=== PATIENT | male | born 1955 | race Caucasian/White ===

== ENCOUNTER 2018-05-10 14:13 | Emergency (ER) | payer OTHER ==
[~2018-05-10] VITALS: Ht 175.3 cm; Wt 78.0 kg
--- OUTSIDE RECORDS SUMMARY | ~2018-05-10 | XMS | Clinical Summary ---
Demographics + + + | Address | [address] | | | [place] [address] | + + + | Home Phone | | + + + | Preferred Language | Unknown | + + + | Marital Status | Unknown | + + + | Holiness Affiliation | Unknown | + + + | Race | Unknown | + + + | Ethnic Group | Unknown | + + + Author + + + | Author | [facility] | | | and [facility] | + + + | Organization | [facility] | | | and [place] | + + + | Address | Unknown | + + + | Phone | Unavailable | + + + Care Team Providers + +------+ + | Care Level Vial Inspector Name | Role | Phone | + +------+ + PP | Unavailable | + +------+ + Allergies Not on File Current Medications Not on file Active Problems Not on file Social History + +-------+ +--------+------+ | Tobacco [...] on file | | + + + Plan of Treatment + + + + + | Health Maintenance | Due Date | Last Done | Comments | + + + + + | Vaccine: | | | | | Dtap/Tdap/Td (1 - | 3 | | | | Tdap) | | | | + + + + + | Vaccine: Zoster (1 | | | | | of 2) | 4 | | | + + + + + | Vaccine: Influenza | | | | | (#1) | 8 | | | + + + + + Results Not on filefrom Last 3 Months"
--- OUTSIDE RECORDS SUMMARY | ~2018-05-10 | XMS | Clinical Summary ---
Demographics + + + | Address | [address] | | | [place] [address] | + + + | Home Phone | | + + + | Preferred Language | Unknown | + + + | Marital Status | Unknown | + + + | Hoahaoism Affiliation | Unknown | + + + | Race | Unknown | + + + | Ethnic Group | Unknown | + + + Author + + + | Author | [facility] | | | and [facility] | + + + | Organization | [facility] | | | and [place] | + + + | Address | Unknown | + + + | Phone | Unavailable | + + + Care Team Providers + +------+ + | Care Pullman Clerk Name | Role | Phone | [...]
--- OUTSIDE RECORDS SUMMARY | ~2018-05-10 | XMS | Clinical Summary ---
Demographics + + + | Address | [address] | | | [place] [address] | + + + | Home Phone [...] [place] | | | | | [address] | | + + + + + Care Team Providers + +------+ + | Care Police District Switchboard Operator Name | Role | Phone | + +------+ + | Washington Mason MD | PP | | + +------+ + Source Comments KRISTI is fully live on both [facility] and [facility] InPatient.[facility] Allergies No Known Allergies Current [...] | BLUE | xxxxxxxxx | PPO | [phone]- | [address] [address] [place] | | | CROSS | | | [address] | [place] [address] | | | [place] | | | | | | | L | | | | | + +--------+ +------+ + + | [facility] | UNITED | xxxxxxxxx | PPO | [...] | Self | [birth year] | Home: | [address] | | | al/Fam | | 1955 | [phone] | [place] [address] | | | fr[place]isca | | | [phone] | | + +--------+ +--------+ + +"
--- OUTSIDE RECORDS SUMMARY | ~2018-05-10 | XMS | Clinical Summary ---
Demographics + + + | Address | [address] | | | [place] [address] | + + + | Home Phone [...] [place] | | | | | [address] | | + + + + + Care Team Providers + +------+ + | Care Physical Therapy Aides Teacher Name | Role | Phone | + +------+ + | Washington Mason MD | PP | | + +------+ + Source Comments KRISTI is fully live on both [facility] Ambulatory and [facility] InPatient.[facility] Allergies No Known Allergies Current [...] | PPO | [phone]- | [address] [address] [place] | | | CROSS | | | [address] | [place] [address] | | | [place] | | | | | | | L | | | | | + +--------+ +------+ + + | [facility] | UNITED | xxxxxxxxx | PPO | [...] 1955 | [phone] | [place] [address] | | | fr[place]a | | | [phone] | | + +--------+ +--------+ + +"
[2018-05-10] MEDS ORDERED: LISINOPRIL-HCT1 EAC2 PO (14:38)
[2018-05-10] MEDS ORDERED: ULTRAM50 MG PO (14:40)
[2018-05-10] MEDS ORDERED: PRILOSEC OTC20 MG PO (14:40)
[2018-05-10] MEDS ORDERED: ASPIR-LOW81 MG PO (14:41)
[2018-05-10] MEDS ORDERED: LIPITOR20 MG PO (14:41)
[2018-05-10] MEDS ORDERED: SILVADENE20 GM TOP (18:47)
[2018-05-10] MEDS ORDERED: ZOFRAN ODT4 MG PO (18:47)
[2018-05-13] MEDS ORDERED: KEPPRA500 MG PO (17:45)
== END 2018-05-10 19:01 | disposition home or self-care (01) ==
LOC: ED 14:13
DX: C44.41 Basal cell carcinoma of skin of scalp and neck (principal); I10 Essential (primary) hypertension; E78.5 Hyperlipidemia, unspecified; F17.200 Nicotine dependence, unspecified, uncomplicated; Z79.899 Other long term (current) drug therapy; Z79.82 Long term (current) use of aspirin
CPT/HCPCS: 70450; 70470; 70491; 71260; 80053; 85025; 85610; 96361; 96374; 96375; 99283; J2270; J2405; J7030; Q9967

== ENCOUNTER 2018-10-05 10:57 | Emergency (ER) | payer OTHER ==
[~2018-10-05] VITALS: Ht 175.3 cm; Wt 78.9 kg
--- OUTSIDE RECORDS SUMMARY | ~2018-10-05 | XMS | Encounter Summary ---
Demographics + + + | Address | [address] | | | [place] [address] | + + + | Home Phone | | + + + | Preferred Language | Unknown | + + + | Marital Status | | + + + | Voodoo Affiliation | Unknown | + + + | Race | Unknown | + + + | Ethnic Group | Unknown | + + + Author + + + | Author | [facility] | | | and [place] | + + + | Organization | [facility] | | | and [place] | + + + | Address | Unknown | + + + | Phone | Unavailable | + + + Support + + + + + | Name | Relationship | Address | Phone | + + + + + | Wilber,Delanee | ECON | [address] | | | | | [place], [place] | | | | | [address] | | + + + + + | Isabella Merino | ECON | [address] | | | "Tk[place]" | | [place], [place] | | | | | [address] | | + + + + + Care Team Providers + +------+ + | Care Office Helper Name | Role | Phone | + +------+ + | Alen Bolanos MD | PCP | | + +------+ + Reason for Visit +--------+ + | Reason | Comments | +--------+ + | Other | | +--------+ + Encounter Details +--------+ + + + + | Date | Type | Department | Care Team | Description | +--------+ + + + + | 09/29/ | Telephone | [facility] | Ashu Singh DO | Other | | 2019 | | MED CTR RAD[facility]ATION | [address] [facility] | | | | | ONCOLOGY CLINIC [address] | [place] | | | | | [address] | [address] | | | | | [place] [address] | | | | | | [phone] | | | +--------+ + + + + Social History + +-------+ +--------+ + | Tobacco Use | Types | Packs/Day | Years | Date | | | | | Used | | + +-------+ +--------+ + | Current Every Day | | 1 | | Started: 08/01/1997 | | Smoker [...] + +---------+ + | Alcohol Use | Drinks/We | oz/Week | Comments | | | ek | | | + + +---------+ + | No | | | | + + +---------+ + + + + | Sex Assigned at | Date Recorded | | | | + + + | Not on file | | + + + as of this encounter Plan of Treatment +--------+ + + + + | Date | Type | Specialty | Care Team | Description | +--------+ + + + + | 01/08/ | Appointment | Radiation Oncology | Ashu Singh DO | | | 2019 | | | [address] | | | | | | [place] | | | | | | [address] | | | | | | | | +--------+ + + + + as of this encounter Visit Diagnoses Not on filein this encounter
--- OUTSIDE RECORDS SUMMARY | ~2018-10-05 | XMS | Encounter Summary ---
Demographics + + + | Address | [address] | | | [place] [address] | + + + | Home Phone | | + + + | Preferred Language | Unknown | + + + | Marital Status | | + + + | Confucianism Affiliation | Unknown | + + + | Race | Unknown | + + + | Ethnic Group | Unknown | + + + Author + + + | Author | [facility] | | | and [place] | + + + | Organization | [facility] | | | and [place] | + + + | Address | Unknown | + + + | Phone | Unavailable | + + + Support + + + + + | Name | Relationship | Address | Phone | + + + + + | Wilber,Delanee | ECON | [address] | | | | | [place], [place] | | | | | [address] | | + + + + + | Isabella Merino | ECON | [address] | | | "T[place]" | | [place], [place] | | | | | [address] | | + + + + + Care Team Providers + +------+ + | Care Music Artist Name | Role | Phone | + +------+ + | Alen Bolanos MD | PCP | | + +------+ + Reason for Visit + + + | Reason | Comments | + + + | Medication Refill | | + + + Encounter Details +--------+--------+ + + + | Date | Type | Department | Care Team | Description | +--------+--------+ + + + | 08/14/ | Refill | [facility] | Ashu Singh DO | Medication Refill | | 2019 | | MED CTR MEDICAL | [address] [facility] | | | | | ONCOLOGY CLINIC [address] | [place] | | | | | [address] | [address] | | | | | [place] [address] | | | | | | [phone] | | | +--------+--------+ + + + Social History + +-------+ [...] 2019 | | | [address] | | | | | | [place] | | | | | | [address] | | | | | | | | +--------+ + + + + as of this encounter Visit Diagnoses + + | Diagnosis | + + | Recurrent basal cell carcinoma - Primary | + + | Basal cell carcinoma of skin, site unspecified | + +
--- OUTSIDE RECORDS SUMMARY | ~2018-10-05 | XMS | Clinical Summary ---
Demographics + + + | Address | [address] | | | [place] [address] | + + + | Home Phone [...] [place] | | | | | [address] | | + + + + + Care Team Providers + +------+ + | Care Value Engineer Name | Role | Phone | + +------+ + | Alen Bolanos MD | PP | | + +------+ + Source Comments KRISTI is fully live on both [facility] Ambulatory and [facility] InPatient.[facility] Allergies No Known Allergies Current Medications + [...] | PPO | +1- | [address] [address] [place] | | | CROSS | | | [address] | [place] [address] | | | [place] | | | | | | | L | | | | | + +--------+ +------+ + + | [facility] | UNITED | xxxxxxxxx | PPO | [...] | [place] | | | [address] | [address] | + +--------+ +--------+ + +"
--- OUTSIDE RECORDS SUMMARY | ~2018-10-05 | XMS | Encounter Summary ---
Demographics + + + | Address | [address] | | | [place] [address] | + + + | Home Phone | | + + + | Preferred Language | Unknown | + + + | Marital Status | | + + + | Adventist Affiliation | Unknown | + + + | Race | Unknown | + + + | Ethnic Group | Unknown | + + + Author + + + | Author | [facility] | | | and [place] | + + + | Organization | [facility] | | | and [...] [place], [place] | | | | | [address] | | + + + + + | Isabella Merino | ECON | [address] | | | "T[place]" | | [place], [place] | | | | | [address] | | + + + + + Care Team Providers + +------+ + | Care Chairman & Chief Executive Officer Name | Role | Phone | + +------+ + | Alen Bolanos MD | PCP | | + +------+ + Encounter Details +--------+ + + + + | Date | Type | Department | Care Team | Description | +--------+ + + + + | 08/09/ | Hospital | [facility] | Ashu Singh DO | | | 2019 | Encounter | MED CTR RADIATION | [address] | | | | | ONCOLOGY [address] | [place], [place] | | | | | [place], | [address] | | | | | [place] [address] | | | | | | [phone] | | | +--------+ + + + [...] + + + as of this encounter Medications at Time of Discharge + + +---------+---------+ + + | Medication | Sig. | Disp. | Refills | Start | End Date | | | | | | Date | | + + +---------+---------+ + + | atorvaSTATin | Take 20 mg by mouth | | | | | | (LIPITOR) 20 mg | nightly. | | | | | | tablet | | | | | | + + +---------+---------+ + + | | Take 1 tablet by | | | | | | lisinopril-hydrochlo | mouth Daily. | | | | | | rothiazide | | | | | | | (PRINZIDE,ZESTORETIC | | | | | | | ) 10-12.5 MG per | | | | | | | tablet | | | | | | + + +---------+---------+ + + | omeprazole | Take 20 mg by mouth | | | | | | (PRILOSEC) 20 mg | every morning | | | | | | capsule | (before breakfast). | | | | | + + +---------+---------+ + + | aspirin 81 mg | Take 81 mg by mouth | | | | | | chewable tablet | Daily. | | | | 9 | + + +---------+---------+ + + | fish oil 1,000 mg | Take 1,000 mg by | | | | | | capsule | mouth Daily. | | | | 9 | + + +---------+---------+ + + | gabapentin | Take 1 capsule by | 90 | 0 | 08/01/19 | | | (NEURONTIN) 300 mg | mouth 3 times daily. | capsule | | 19 | 9 | | capsule | | | | | | + + +---------+---------+ + + | | | | 0 | 07/19/19 | | | HYDROcodone-acetamin | | | | 19 | 9 | | ophen (NORCO) 5-325 | | | | | | | mg per tablet | | | | | | + + +---------+---------+ + + | levETIRAcetam | take 1 tablet by | | 0 | 05/13/20 | | | (KEPPRA) 500 mg | mouth twice a day | | | 18 | 9 | | tablet | | | | | | + + +---------+---------+ + + | ondansetron | DIS ONE T PO TID PRN | | 0 | 05/11/20 | | | (MARIA ISABEL ODT) 4 mg | NAUSEA | | | 18 | 9 | | disintegrating | | | | | | | tablet | | | | | | + + +---------+---------+ + + | SSD 1 % cream | APPLY TO SKIN BID | | 3 | 07/20/19 | | | | PRN FOR ITCHING | | | 19 | 9 | + + +---------+---------+ + + as of this encounter Plan [...] [place] | | | | | | [address] | | | | | | | | +--------+ + + + + as of this encounter Visit Diagnoses Not on filein this encounter
--- OUTSIDE RECORDS SUMMARY | ~2018-10-05 | XMS | Encounter Summary ---
Demographics + + + | Address | [address] | | | [place] [address] | + + + | Home Phone | | + + + | Preferred Language | Unknown | + + + | Marital Status | | + + + | Spiritism Affiliation | Unknown | + + + | Race | Unknown | + + + | Ethnic Group | Unknown | + + + Author + + + | Author | [facility] | | | and [place] | + + + | Organization | [facility] | | | and [place] [...] [place], [place] | | | | | [address] | | + + + + + | Isabella Merino | ECON | [address] | | | "T[place]" | | [place], [place] | | | | | [address] | | + + + + + Care Team Providers + +------+ + | Care Family And Marriage Counsellor Name | Role | Phone | + +------+ + | Alen Bolanos MD | PCP | | + +------+ + Reason for Visit + + + | Reason | Comments | + + + | IDT Note | | + + + Encounter Details +--------+ + + + + | Date | Type | Department | Care Team | Description | +--------+ + + + + | 08/08/ | Telephone | [facility] | Ashu Singh DO | IDT Note | | 2019 | | MED CTR RADIATION | [address] [facility] | | | | | ONCOLOGY CLINIC [address] | [place] | | | | | [place] | [address] | | | | | [facility] [place] [address] | | | | | | [phone] | | | +--------+ + + + [...] | Ashu Singh DO | | | 2018 | | | [address] | | | | | | [place] | | | | | | [id number] | | | | | | | | +--------+ + + + + as of this encounter Visit Diagnoses Not on filein this encounter
--- OUTSIDE RECORDS SUMMARY | ~2018-10-05 | XMS | Encounter Summary ---
Demographics + + + | Address | [address] | | | [place] [address] | + + + | Home Phone | | + + + | Preferred Language | Unknown | + + + | Marital Status | | + + + | Sabianism Affiliation | Unknown | + + + | Race | Unknown | + + + | Ethnic Group | Unknown | + + + Author + + + | Author | [facility] | | | and [place] | + + + | Organization | [facility] | | | and [place] [...] [place], [place] | | | | | [address] | | + + + + + | Isabella Merino | ECON | [address] | | | "[place]" | | [place], [place] | | | | | [address] | | + + + + + Care Team Providers + +------+ + | Care Process Development Engineer Name | Role | Phone | + +------+ + | Alen Bolanos MD | PCP | | + +------+ + Reason for Referral Evaluate & Treat (Routine) +--------+ + + + + + | Status | Reason | Specialty | Diagnoses / | Referred By | Referred To | | | | | Procedures | Contact | Contact | +--------+ + + + + + | Closed | Specialty | Dermatology | Diagnoses | Lord, | Eddi, | | | Services | | Recurrent | Ashu Alvarenga DO | Dominique | | | Required | | basal cell | [address] | MD Maria Luisa | | | | | carcinoma | [address] | [address] | | | | | Basal cell | [place], | [place] | | | | | carcinoma | [place] [address] | [place] | | | | | (BCC) of | Phone: | [address] | | | | | skin of neck | [phone] | Phone: | | | | | | Fax: | [phone] | | | | | | [phone] | Fax: | | | | | | | [phone] | +--------+ + + + + + Encounter Details +--------+ + + + + | Date | Type | Department | Care Team | Description | +--------+ + + + + | 10/02/ | Hospital | [facility] | Ashu Singh DO | Recurrent basal cell | | 2019 | Encounter | MED CTR RADIATION | [address] | carcinoma (Primary | | | | ONCOLOGY CLINIC [address] | [place], [place] | Dx); Basal cell | | | | [place] | [address] | carcinoma (BCC) of | | | | [place] [address] | | skin of neck | | | | [phone] | | | +--------+ + + + [...] + +---------+ + + | Medication | Sig. | Disp. | Refills | Start | End Date | | | | | | Date | | + + + +---------+ + + | atorvaSTATin | Take 20 mg by mouth | | | | | | (LIPITOR) 20 mg | nightly. | | | | | | tablet | | | | | | + + + +---------+ + + | Docusate Calcium | Take by mouth as | | | | | | (STOOL SOFTENER PO) | needed. | | | | | + + + +---------+ + + | gabapentin | Take 3 capsules by | 270 | 0 | 09/08/19 | | | (NEURONTIN) 300 mg | mouth 3 times daily. | capsule | | 19 | | | capsuleIndications: | | | | | | | Recurrent basal cell | | | | | | | carcinoma | | | | | | + + + +---------+ + + | | Take 1-2 tablets by | 120 | 0 | 09/22/19 | | | HYDROcodone-acetamin | mouth every 6 hours | tablet | | 19 | | | ophen (NORCO) 10-325 | as needed for Pain. | | | | | | mg per tablet | | | | | | + + + +---------+ + + | | Take 1 tablet [...] + + + +---------+ + + | naloxone (NARCAN) | 1 spray by Nasal | 2 each | 0 | // | | | 4 mg/nasal spray | route as needed for | | | 19 | | | | Decreased | | | | | | | Responsiveness. | | | | | + + + +---------+ + + | omeprazole | Take 20 mg by mouth | | | | | | (PRILOSEC) 20 mg | every morning | | | | | | capsule | (before breakfast). | | | | | + + + +---------+ + + as of this encounter Progress Notes Danielle Robb RN - 10/02/2018 1632 PDTPatient completes radiation today. Patient is brayden eduled for a three month follow up with Dr. Singh. in this encounter Plan of Treatment +--------+ + + + + | Date | Type | Specialty | Care Team | Description | +--------+ + + + + | 01/08/ | Appointment | Radiation Oncology | Ashu Singh DO | | | 2018 | | | [address] | | | | | | [place] | | | | | | [address] | | | | | | | | +--------+ + + + + + +--------+ + + | Name | Priori | Associated Diagnoses | Order Schedule | | | ty | | | + +--------+ + + | Dermatology, External - AMB | Routin | Recurrent basal | Ordered: 10/02/2018 | | Referral | e | cell carcinoma | | | | | Basal cell carcinoma | | | | | (BCC) of skin of | | | | | neck | | + +--------+ + + as of this encounter Visit Diagnoses + + | Diagnosis | + + | Recurrent basal cell carcinoma - Primary | + + | Basal cell carcinoma of skin, site unspecified | + + | Basal cell carcinoma (BCC) of skin of neck | + +
--- OUTSIDE RECORDS SUMMARY | ~2018-10-05 | XMS | Encounter Summary ---
Demographics + + + | Address | [address] | | | [place] [address] | + + + | Home Phone | | + + + | Preferred Language | Unknown | + + + | Marital Status | | + + + | Methodist Affiliation | Unknown | + + + | Race | Unknown | + + + | Ethnic Group | Unknown | + + + Author + + + | Author | [facility] | | | and [place] | + + + | Organization | [facility] | | | and [place] [...] [place], [place] | | | | | [address] | | + + + + + | Isabella Merino | ECON | [address] | | | "[place]" | | [place], [place] | | | | | [address] | | + + + + + Care Team Providers + +------+ + | Care Engineering Patternmaker Name | Role | Phone | + [...] | | | | carcinoma | [place] [address] | [place], [place] | | | | | (BCC) of | Phone: | [address] | | | | | skin of neck | [phone] | Phone: | | | | | | Fax: | [phone] | | | | | | [phone] | Fax: | | | | | | | [phone] | +--------+ + + + + + Encounter Details +--------+ + + + + | Date | Type | Department | Care Team | Description | +--------+ + + + + | 10/02/ | Hospital | [facility] | Ashu Singh DO | Recurrent basal cell | | 2019 | Encounter | MED CTR RADIATION | [address] | carcinoma (Primary | | | | ONCOLOGY CLINIC [address] | [place], [place] | Dx); Basal cell | | | | [place] | [address] | carcinoma (BCC) of | | | | [place] [address] | | skin of neck | | | | [phone] | | | +--------+ + + + [...] [place] | | | | | | [address] | | | | | | | [...]
--- OUTSIDE RECORDS SUMMARY | ~2018-10-05 | XMS | Encounter Summary ---
Demographics + + + | Address | [address] | | | [place] [address] | + + + | Home Phone | | + + + | Preferred Language | Unknown | + + + | Marital Status | | + + + | Catholic Affiliation | Unknown | + + + | Race | Unknown | + + + | Ethnic Group | Unknown | + + + Author + + + | Author | [facility] | | | and [place] | + + + | Organization | [facility] | | | and [place] [...] [place], [place] | | | | | [address] | | + + + + + | Isabella Merino | ECON | [address] | | | "[place]" | | [place], [place] | | | | | [address] | | + + + + + Care Team Providers + +------+ + | Care Elementary School Teacher'S Aide Name | Role | Phone | + +------+ + | Alen Bolanos MD | PCP | | + +------+ + Encounter Details +--------+ + + + + | Date | Type | Department | Care Team | Description | +--------+ + + + + | 08/01/ | Hospital | [facility] | Ashu Singh DO | | | 2019 | Encounter | MED CTR RADIATION | [address] | | | | | ONCOLOGY [address] | [place], [place] | | | | | [place], | [address] | | | | | [place] [address] | | | | | | [phone] | | | +--------+ + + + [...] [place] | | | | | | [address] | | | | | | | | +--------+ + + + + as of this encounter Visit Diagnoses Not on filein this encounter
--- OUTSIDE RECORDS SUMMARY | ~2018-10-05 | XMS | Encounter Summary ---
Demographics + + + | Address | [address] | | | [place] [address] | + + + | Home Phone | | + + + | Preferred Language | Unknown | + + + | Marital Status | | + + + | Hindu Affiliation | Unknown | + + + | Race | Unknown | + + + | Ethnic Group | Unknown | + + + Author + + + | Author | [facility] | | | and [place] | + + + | Organization | [facility] | | | and [...] [place], [place] | | | | | [address] | | + + + + + | Isabella Merino | ECON | [address] | | | "[place]" | | [place], [place] | | | | | [address] | | + + + + + Care Team Providers + +------+ + | Care Sausage Linker Name | Role | Phone | + [...] + + | 08/08/ | Hospital | [facility] | Ashu Singh DO | | | 2019 | Encounter | MED CTR CT [address] | [address] | | | | | [place], | [place] | | | | | [place] [address] | [address] | | | | | [phone] | | | +--------+ + + + [...] [place] | | | | | | [address] | | | | | | | [...]
--- OUTSIDE RECORDS SUMMARY | ~2018-10-05 | XMS | Encounter Summary ---
Demographics + + + | Address | [address] | | | [place] [address] | + + + | Home Phone | | + + + | Preferred Language | Unknown | + + + | Marital Status | | + + + | Holiness Affiliation | Unknown | + + + | Race | Unknown | + + + | Ethnic Group | Unknown | + + + Author + + + | Author | [facility] | | | and [place] | + + + | Organization | [facility] | | | and [...] [place], [place] | | | | | [address] | | + + + + + | Isabella Merino | ECON | [address] | | | "[place]" | | [place], [place] | | | | | [address] | | + + + + + Care Team Providers + +------+ + | Care Automotive Detailer Name | Role | Phone | + +------+ + | Alen Bolanos MD | PCP | | + +------+ + Encounter Details +--------+ + + + + | Date | Type | Department | Care Team | Description | +--------+ + + + + | 10/02/ | Documentati | [facility] | Ashu Singh DO | | | 2019 | on | MED CTR RADIATION | [address] | | | | | ONCOLOGY CLINIC [address] | [place], [place] | | | | | [place] | [address] | | | | | [place] [address] | | | | | | [phone] | | | +--------+ + + + [...] + + + as of this encounter Progress Notes Ashu Singh DO - 10/02/2018 1703 PDTFormatting of this note may be different from the or iginal. Radiation Treatment Summary Diagnosis ICD10: C44.41 - Basal cell carcinoma of skin of scalp and neck Treatment Dates: Guilherme Merino recently completed a definitive course of radiation treatment with external beam radiation therapy. Treatment was provided to him in our clinic between the dates of 2018 and October 02, 2018. Intent: Curative Prescription: L Neck (Plan ID - L neck) - Rx Dose 5,500cGy (Status - Treatment Approved) - Treatment Technique: ENFACE ENFACE Treatment Summary: Course: L Neck Treatment Site Ref. ID Energy Dose/Fx (cGy) #Fx Total Dose (cGy) Start Date End Date Elapse d Days L neck L neck 6E 275 5,500 09/04/2018 10/02/2018 28 Total: 5,500 09/04/2018 10/02/2018 28 Assessment: Guilherme Merino completed the planned course of course of external beam radiation therapy u neventfully and without any unexpected complications. Treatment was tolerated well. Pain lev el documented at the conclusion of therapy was 6/10 managed by [place] 10/325 one to 2 tablets every 6 hours as needed. At the conclusion of treatment, the tumor had flattened out with healthy appearing tissue. Disposition: 1. Follow-up in our clinic: 3 months with referral for dermatologic follow-up and future omid herrera Pain management for treatment related toxicity: Continuation of current medication with tap er beginning in 2-3 weeks once tissue begins to heal. 2. Coordination of care will be arranged between providers for future visits. Guilherme Merino was encouraged to call our clinic with any further questions or concerns. Thank you for allowing me to participate in his care. If you should have any questions rega rding this treatment summary, please do not hesitate to contact me. Ashu Singh DO Radiation Oncologist Department of Radiation Oncology [facility] This note was transcribed using TotSpot speech recognition software. As a result, there may be unintended for medical and/or spelling errors. Every attempt is made to correct dictati on. If there are any questions or errors please contact our office. CC: PCP: Alen Bolanos MD Patient Care Team: Alen Bolanos MD as PCP - General (Family Medicine) Abdullahi Funk MD as Consulting Physician (Medical Oncology) Ashu Singh DO as Physician (Radiation Oncology) in this encounter Plan of Treatment +--------+ [...] [place] | | | | | | [id number] | | | | | | | | +--------+ + + + + as of this encounter Visit Diagnoses Not on filein this encounter
--- OUTSIDE RECORDS SUMMARY | ~2018-10-05 | XMS | Encounter Summary ---
Demographics + + + | Address | [address] | | | [place] [address] | + + + | Home Phone | | + + + | Preferred Language | Unknown | + + + | Marital Status | | + + + | Buddhism Affiliation | Unknown | + + + | Race | Unknown | + + + | Ethnic Group | Unknown | + + + Author + + + | Author | [facility] | | | and [place] | + + + | Organization | [facility] | | | and [place] [...] [place], [place] | | | | | [address] | | + + + + + | Isabella Merino | ECON | [address] | | | "[place]" | | [place], [place] | | | | | [address] | | + + + + + Care Team Providers + +------+ + | Care Welder Metal Fab Name | Role | Phone | + [...] | | ONCOLOGY CLINIC [address] | [place] | | | | | [place] | [address] | | | | | [place] [address] | | | | | | [phone] | | | +--------+ + + + [...] [place] | | | | | | [id number] | | | | | | | | +--------+ + + + + as of this encounter Visit Diagnoses Not on filein this encounter
--- OUTSIDE RECORDS SUMMARY | ~2018-10-05 | XMS | Encounter Summary ---
Demographics + + + | Address | [address] | | | [place] [address] | + + + | Home Phone | | + + + | Preferred Language | Unknown | + + + | Marital Status | | + + + | Nondenominational Affiliation | Unknown | + + + | Race | Unknown | + + + | Ethnic Group | Unknown | + + + Author + + + | Author | [facility] | | | and [place] | + + + | Organization | [facility] | | | and [place] [...] [place], [place] | | | | | [address] | | + + + + + | Isabella Merino | ECON | [address] | | | "Tiki" | | [place], [place] | | | | | [address] | | + + + + + Care Team Providers + +------+ + | Care Quarry Supervisor Open Pit Name | Role | Phone | + [...] Eddi, | | | Services | | Basal cell | Ashu Alvarenga DO | Dominique | | | Required | | carcinoma | [address] | MD [place] Luisa | | | | | (BCC) of | [address] | [address] | | | | | skin of neck | [place], | [place] | | | | | Recurrent | [place] [address] | [place] | | | | | basal cell | Phone: | [address] | | | | | carcinoma | [phone] | Phone: | | | | | | Fax: | [phone] | | | | | | [phone] | Fax: | | | | | | | [phone] | +--------+ + + + + + Reason for Visit + + + | Reason | Comments | + + + | Under Treatment | | + + + Encounter Details +--------+ + + + + | Date | Type | Department | Care Team | Description | +--------+ + + + + | 09/28/ | Hospital | [facility] | Ashu Singh DO | Basal cell carcinoma | | 2019 | Encounter | MED CTR RADIATION | [address] | (BCC) of skin of | | | | ONCOLOGY CLINIC [address] | [place], [place] | neck (Primary Dx); | | | | [facility] | [address] | Recurrent basal cell | | | | [place] [address] | | carcinoma | | | | [phone] | | | +--------+ + + + [...] + + + as of this encounter Last Filed Vital Signs + + + + | Vital Sign | Reading | Time Taken | + + + + | Blood Pressure | 137/72 | 09/28/2018 1049 PDT | + + + + | Pulse | 65 | 09/28/20181048 PDT | + + + + | Temperature | 37.2 C (99 F) | 09/28/20181048 PDT | + + + + | Respiratory Rate | 14 | 09/28/20181048 PDT | + + + + | Oxygen Saturation | 96% | 09/28/20181048 PDT | + + + + | Inhaled Oxygen | - | - | | Concentration | | | + + + + | Weight | 82.6 kg (182 lb 1.6 | 09/28/20181048 PDT | | | oz) | | + + + + | Height | - | - | + + + + | Body Mass Index | 26.37 | 09/28/2018 1049 PDT | + + + + in this encounter Medications at Time of [...] Progress Notes Ashu Singh DO - 09/28/2018 1050 PDTFormatting of this note may be different from the or iginal. Radiation Oncology Weekly On Treatment Note Diagnosis: [...] 6 Pain Quality: Stable Current pain regimen: [place] 10/325 1 tab q 6hours Wt Readings [...] this well with no signific ant pruritus. [place] 10 mg/325mg has been titrated to 1 [...] as planned. Ashu Singh DO Radiation Oncologist Tanner Castro RN - 09/28/2018 1048 PDTFormatting of this note may be different from the original. 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 Performance Status Karnofsky Performance Score 70% in this encounter Plan of Treatment +--------+ + + + + | Date | Type | Specialty | Care Team | Description | +--------+ + + + + | 01/08/ | Appointment | Radiation Oncology | Ashu Singh DO | | | 2018 | | | [address] | | | | | | [place], [place] | | | | | | [address] | | | | | | | | +--------+ + + + + + +--------+ + + | Name | Priori | Associated Diagnoses | Order Schedule | | | ty | | | + +--------+ + + | [facility] | Routin | Basal cell | Ordered: 09/28/2018 | | Group - AMB Referral | e | carcinoma (BCC) of | | | | | skin of neck | | | | | Recurrent basal cell | | | | | carcinoma | | + +--------+ + + as of this encounter Visit Diagnoses + + | Diagnosis | + + | Basal cell carcinoma (BCC) of skin of neck - Primary | + + | Recurrent basal cell carcinoma | + + | Basal cell carcinoma of skin, site unspecified | + +
--- OUTSIDE RECORDS SUMMARY | ~2018-10-05 | XMS | Encounter Summary ---
Demographics + + + | Address | [address] | | | [place] [address] | + + + | Home Phone | | + + + | Preferred Language | Unknown | + + + | Marital Status | | + + + | Sikhism Affiliation | Unknown | + + + | Race | Unknown | + + + | Ethnic Group | Unknown | + + + Author + + + | Author | [facility] | | | and [place] | + + + | Organization | [facility] | | | and [...] [place], [place] | | | | | [address] | | + + + + + | Isabella Merino | ECON | [address] | | | "Tiki" | | [place], [place] | | | | | [address] | | + + + + + Care Team Providers + +------+ + | Care Home Therapy Clinician Name | Role | Phone | + +------+ + | Alen Bolanos MD | PCP | | + +------+ + Encounter Details +--------+ + + + + | Date | Type | Department | Care Team | Description | +--------+ + + + + | 09/06/ | Hospital | [facility] | Ashu Singh DO | | | 2019 | Encounter | MED CTR RADIATION | [address] | | | | | ONCOLOGY [address] | [place], [place] | | | | | [place], | [address] | | | | | [place] [address] | | | | | | [phone] | | | +--------+ + + + [...] [place] | | | | | | [address] | | | | | | | | +--------+ + + + + as of this encounter Visit Diagnoses Not on filein this encounter
--- OUTSIDE RECORDS SUMMARY | ~2018-10-05 | XMS | Encounter Summary ---
Demographics + + + | Address | [address] | | | [place] [address] | + + + | Home Phone | | + + + | Preferred Language | Unknown | + + + | Marital Status | | + + + | Roman Catholic Affiliation | Unknown | + + + | Race | Unknown | + + + | Ethnic Group | Unknown | + + + Author + + + | Author | [facility] | | | and [place] | + + + | Organization | [facility] | | | and [place] [...] [place], [place] | | | | | [address] | | + + + + + | Isabella Merino | ECON | [address] | | | "T[place]" | | [place], [place] | | | | | [address] | | + + + + + Care Team Providers + +------+ + | Care Electric Installer Name | Role | Phone | + [...] | | ONCOLOGY CLINIC [address] | [place], [place] | | | | | [address] [place] | [address] | | | | | [place] [address] | | | | | | [phone] | | | +--------+ + + + [...] conclusion of therapy was 6/10 managed by [place] 10/325 one to 2 tablets every 6 [...] DO Radiation Oncologist Department of Radiation Oncology [facility] This note was transcribed using [employer] speech recognition software. As a result, there [...] [place] | | | | | | [id number] | | | | | | | | +--------+ + + + + as of this encounter Visit Diagnoses Not on filein this encounter
--- OUTSIDE RECORDS SUMMARY | ~2018-10-05 | XMS | Encounter Summary ---
Demographics + + + | Address | [address] | | | [place] [address] | + + + | Home Phone | | + + + | Preferred Language | Unknown | + + + | Marital Status | | + + + | Pentecostal Affiliation | Unknown | + + + | Race | Unknown | + + + | Ethnic Group | Unknown | + + + Author + + + | Author | [facility] | | | and [place] | + + + | Organization | [facility] | | | and [place] [...] [place], [place] | | | | | [address] | | + + + + + | Isabella Merino | ECON | [address] | | | "T[place]" | | [place], [place] | | | | | [address] | | + + + + + Care Team Providers + +------+ + | Care Forestry Fire Aid Name | Role | Phone | + +------+ + | Alen Bolanos MD | PCP | | + +------+ + Encounter Details +--------+ + + + + | Date | Type | Department | Care Team | Description | +--------+ + + + + | 09/06/ | Hospital | [facility] | Ashu Singh DO | | | 2019 | Encounter | MED CTR RADIATION | [address] | | | | | ONCOLOGY [address] | [place], [place] | | | | | [place], | [address] | | | | | [place] [address] | | | | | | [phone] | | | +--------+ + + + [...] [place] | | | | | | [address] | | | | | | | | +--------+ + + + + as of this encounter Visit Diagnoses Not on filein this encounter
--- OUTSIDE RECORDS SUMMARY | ~2018-10-05 | XMS | Encounter Summary ---
Demographics + + + | Address | [address] | | | [place] [address] | + + + | Home Phone [...] | Author | [facility] | | | and [place] | + + + | Organization | [facility] | | | and [...] [place], [place] | | | | | [address] | | + + + + + | Isabella Merino | ECON | [address] | | | "T[place]" | | [place], [place] | | | | | [address] | | + + + + + Care Team Providers + +------+ + | Care Geospatial Engineer Name | Role | Phone | [...] + + | 09/07/ | Hospital | [facility] | Ashu Singh DO | Recurrent basal cell | | 2019 | Encounter | MED CTR RADIATION | [address] | carcinoma (Primary | | | | ONCOLOGY CLINIC [address] | [place] | Dx) | | | | [place] | [address] | | | | | [place] [address] | | | | | | [phone] | | | +--------+ + + + [...] | Blood Pressure | 124/67 | 09/07/2018 1058 PST | + + + + | Pulse | 73 | 09/07/20181057 PST | + + + + | Temperature | 36.9 C (98.4 F) | 09/07/20181057 PST | + + + + | Respiratory Rate | 16 | 09/07/20181057 PST | + + + + | Oxygen Saturation | 97% | 09/07/20181057 PST | + + + + | Inhaled Oxygen | - | - | | Concentration | | | + + + + | Weight | 82.4 kg (181 lb 10.5 | 09/07/20181057 PST | | | oz) | | + + + + | Height | - | - | + + + + | Body Mass Index | 26.3 | 09/07/2018 1058 PST | + + + + in this [...] +---------+---------+ + + | gabapentin | Take 3 [...] + +---------+---------+ + + | | Take 1-2 tablets [...] +---------+---------+ + + as of this encounter Progress Notes Danielle Robb RN - 09/07/2018 1104 PSTMet with patient today for nurse education. Verbal and written education given to patient regarding general radiation therapy side effects as well as site specific side effects. Reviewed process of for their doctor, all quest ions at this time were answered. Ashu Singh DO - 09/07/2018 1101 PSTFormatting of this note may be different from the or iginal. Radiation Oncology Weekly On Treatment Note Diagnosis: ICD-10-CM ICD-9-CM 1. Recurrent basal cell carcinoma C44.91 173.91 Reason for visit: On treatment evaluation Radiation technical factors: Dose Delivered Dose Planned Fractions Delivered 825 cGy 5500 cGy 3/20 Setup was verified clinically on the treatment [...] primary lesion which was previously managed with [place]. I will review and renew th is [...] planned. Ashu Singh DO Radiation Oncologist Danielle Robb RN - 09/07/2018 1101 PSTFormatting of this note may be different from the original. 09/07/18 1059 Gastrointestinal Nausea 0 - Grade 0 Vomiting 0 - Grade 0 General Disorders and Administration Site Conditions Fatigue 1 - Grade 1 Performance Status Karnofsky Performance Score 70% in this encounter Plan of Treatment +--------+ + + + + | Date | Type | Specialty | Care Team | Description | +--------+ + + + + | 01/08/ | Appointment | Radiation Oncology | Ashu Singh DO | | | 2018 | | | [address] | | | | | | [place] | | | | | | [id number] | | | | | | | | +--------+ + + + + as of this encounter Visit Diagnoses + + | Diagnosis | + + | Recurrent basal cell carcinoma - Primary | + + | Basal cell carcinoma of skin, site unspecified | + +
--- OUTSIDE RECORDS SUMMARY | ~2018-10-05 | XMS | Clinical Summary ---
Demographics + + + | Address | [address] | | | [place] [address] | + + + | Home Phone [...] Author | [facility] | | | and [place] | + + + | Organization | [facility] [...] [place], [place] | | | | | [address] | | + + + + + | Isabella Jorge | ECON | [address] | | | "T[place]" | | [place], [place] | | | | | [address] | | + + + + + Care Team Providers + +------+ + | Care Bottom Wheeler Name | Role | Phone | + [...] [place] | | | | | | [address] | | | | | | | [...] +---------+--------+ +--------+ +---------+ | | TRICAR | [id number] | Indemn | [phone] | | | [...] | [place] | | | [phone] | [address] | + +--------+ +--------+ + +
--- OUTSIDE RECORDS SUMMARY | ~2018-10-05 | XMS | Encounter Summary ---
Demographics + + + | Address | [address] | | | [place] [address] | + + + | Home Phone [...] + | Author | [facility] | | | and [place] | + + + | Organization | [facility] | | | and [...] [place], [place] | | | | | [address] | | + + + + + | Isabella Merino | ECON | [address] | | | "T[place]" | | [place], [place] | | | | | [address] | | + + + + + Care Team Providers + +------+ + | Care Career Specialist Name | Role | Phone | + +------+ + | Alen Bolanos MD | PCP | | + +------+ + Encounter Details +--------+ + + + + | Date | Type | Department | Care Team | Description | +--------+ + + + + | 08/01/ | Hospital | [facility] | Ashu Singh DO | | | 2019 | Encounter | MED CTR RAD[facility]ATION | [address] | | | | | ONCOLOGY [address] | [place], [place] | | | | | [place], | [address] | | | | | [place] [address] | | | | | | [phone] | | | +--------+ + + + [...] [place] | | | | | | [address] | | | | | | | | +--------+ + + + + as of this encounter Visit Diagnoses Not on filein this encounter
--- OUTSIDE RECORDS SUMMARY | ~2018-10-05 | XMS | Encounter Summary ---
Demographics + + + | Address | [address] | | | [place] [address] | + + + | Home Phone | | + + + | Preferred Language | Unknown | + + + | Marital Status | | + + + | Advent Affiliation | Unknown | + + + | Race | Unknown | + + + | Ethnic Group | Unknown | + + + Author + + + | Author | [facility] | | | and [place] | + + + | Organization | [facility] | | | and [place] [...] [place], [place] | | | | | [address] | | + + + + + | Isabella Merino | ECON | [address] | | | "[place]" | | [place], [place] | | | | | [address] | | + + + + + Care Team Providers + +------+ + | Care Maintenance Electrician Name | Role | Phone | + [...] + + | 09/07/ | Hospital | [facility] | Ashu Singh DO | Recurrent basal cell | | 2019 | Encounter | MED CTR RADIATION | [address] | carcinoma (Primary | | | | ONCOLOGY CLINIC [address] | [place] | Dx) | | | | [address] | [address] | | | | | [place] [address] | | | | | | [phone] | | | +--------+ + + + [...] primary lesion which was previously managed with Erving. I will review and renew th is [...] [place] | | | | | | [id number] | | | | | | | | +--------+ + + + + as of this encounter Visit Diagnoses + + | Diagnosis | + + | Recurrent basal cell carcinoma - Primary | + + | Basal cell carcinoma of skin, site unspecified | + +
--- OUTSIDE RECORDS SUMMARY | ~2018-10-05 | XMS | Encounter Summary ---
Demographics + + + | Address | [address] | | | [place] [address] | + + + | Home Phone | | + + + | Preferred Language | Unknown | + + + | Marital Status | | + + + | Congregation Affiliation | Unknown | + + + | Race | Unknown | + + + | Ethnic Group | Unknown | + + + Author + + + | Author | [facility] | | | and [place] | + + + | Organization | [facility] | | | and [place] [...] [place], [place] | | | | | [address] | | + + + + + | Isabella Merino | ECON | [address] | | | "Tiki" | | [place], [place] | | | | | [address] | | + + + + + Care Team Providers + +------+ + | Care School Custodian Name | Role | Phone | + [...] + + | 09/21/ | Hospital | [facility] | Ashu Singh DO | Basal cell carcinoma | | 2019 | Encounter | MED CTR RADIATION | [address] | (BCC) of skin of | | | | ONCOLOGY CLINIC [address] | [place] | neck (Primary Dx) | | | | [facility] | [address] | | | | | [place] [address] | | | | | | [phone] | | | +--------+ + + + [...] 6 Pain Quality: Stable Current pain regimen: [place] 5/325 2 tabs 4 times a day [...] this well with no signific ant pruritus. [place] has been titrated to 2 tabs 4 times a day leading to improved overall p ain control-he is now requesting a refill. I will represcribed [place] at 10 mg/325 mg 1-2 ta b [...] [place] | | | | | | [address] | | | | | | | | +--------+ + + + + as of this encounter Visit Diagnoses + + | Diagnosis | + + | Basal cell carcinoma (BCC) of skin of neck - Primary | + +
--- OUTSIDE RECORDS SUMMARY | ~2018-10-05 | XMS | Encounter Summary ---
Demographics + + + | Address | [address] | | | [place] [address] | + + + | Home Phone | | + + + | Preferred Language | Unknown | + + + | Marital Status | | + + + | Uatsdin Affiliation | Unknown | + + + | Race | Unknown | + + + | Ethnic Group | Unknown | + + + Author + + + | Author | [facility] | | | and [place] | + + + | Organization | [facility] [...] [place], [place] | | | | | [address] | | + + + + + | Isabella Merino | ECON | [address] | | | "Tiki" | | [place], [place] | | | | | [address] | | + + + + + Care Team Providers + +------+ + | Care Environmental Journalist Name | Role | Phone | + [...] cell | Ashu C, DO | [address] [place] | | | | | carcinoma | [address] | [place], | | | | | (BCC) of | [address] | [place] [address] | | | | | skin of neck | [place], | Phone: | | | | | Procedures | [place] [address] | [phone] | | | | | CT | Phone: | Fax: | | | | | Treatment | [phone] | [phone] | | | | | Plan Complex | Fax: | | | | | | CT TX PLAN | [phone] | | +--------+--------+ + + + + [...] | | Consult/Recu | [address] | [place] [address] | | | | | rrent Basel | [place], | Phone: | | | | | Cell/[place] | [place] [address] | [phone] | | | | | soler | Phone: | Fax: | | | | | Procedures | [phone] | [phone] | | | | | [place] OFFICE | Fax: | | | | | | OUTPATIENT | [phone] | | | | | | NEW 60 | | | | | | | MINUTES NEW | | | | | | | PATIENT | | | +--------+--------+ + + + + Encounter Details +--------+ + + + + | Date | Type | Department | Care Team | Description | +--------+ + + + + | 08/01/ | Hospital | [facility] | Ashu Singh DO | Basal cell carcinoma | | 2019 | Encounter | MED CTR RADIATION | [address] | (BCC) of skin of | | | | ONCOLOGY CLINIC [address] | [place] | neck (Primary Dx) | | | | [address] [place] | [address] | | | | | [place] [address] | | | | | | [phone] | | | +--------+ + + + [...] [place] | | | | | | [address] | | | | | | | [...]
--- OUTSIDE RECORDS SUMMARY | ~2018-10-05 | XMS | Encounter Summary ---
Demographics + + + | Address | [address] | | | [place] [address] | + + + | Home Phone | | + + + | Preferred Language | Unknown | + + + | Marital Status | | + + + | Restorationist Affiliation | Unknown | + + + | Race | Unknown | + + + | Ethnic Group | Unknown | + + + Author + + + | Author | [facility] | | | and [place] | + + + | Organization | [facility] | | | and [place] [...] [place], [place] | | | | | [address] | | + + + + + | Isabella Merino | ECON | [address] | | | "Tiki" | | [place], [place] | | | | | [address] | | + + + + + Care Team Providers + +------+ + | Care Felt Finisher Name | Role | Phone | [...] + | 08/11/ | Telephone | [facility] | Ashu Singh DO | Other | | 2019 | | MED CTR MEDICAL | [address] [facility] | | | | | ONCOLOGY CLINIC [address] | [place] | | | | | [facility] | [address] | | | | | [place] [address] | | | | | | [phone] | | | +--------+ + + + [...] [place] | | | | | | [address] | | | | | | | | +--------+ + + + + as of this encounter Visit Diagnoses Not on filein this encounter
--- OUTSIDE RECORDS SUMMARY | ~2018-10-05 | XMS | Encounter Summary ---
Demographics + + + | Address | [address] | | | [place] [address] | + + + | Home Phone [...] Author | [facility] | | | and [place] | + + + | Organization | [facility] | | | and [place] [...] [place], [place] | | | | | [address] | | + + + + + | Isabella Merino | ECON | [address] | | | "Tiki" | | [place], [place] | | | | | [address] | | + + + + + Care Team Providers + +------+ + | Care Radar Scientist Name | Role | Phone | + [...] Yesenia DALAL | | | | | [phone] | [place] [address] | | +--------+ + + + + [...] [place] | | | | | | [address] | | | | | | | [...]
--- OUTSIDE RECORDS SUMMARY | ~2018-10-05 | XMS | Encounter Summary ---
Demographics + + + | Address | [address] | | | [place] [address] | + + + | Home Phone | | + + + | Preferred Language | Unknown | + + + | Marital Status | | + + + | Hinduism Affiliation | Unknown | + + + | Race | Unknown | + + + | Ethnic Group | Unknown | + + + Author + + + | Author | [facility] | | | and [place] | + + + | Organization | [facility] | | | and [place] | [...] [place], [place] | | | | | [address] | | + + + + + | Isabella Merino | ECON | [address] | | | "Tiki" | | [place], [place] | | | | | [address] | | + + + + + Care Team Providers + +------+ + | Care At Risk Paraprofessional Name | Role | Phone | + [...] cell | Ashu C, DO | [address] [place] | | | | | carcinoma | [address] | [place], | | | | | (BCC) of | [address] | [place] [address] | | | | | skin of neck | [place], | Phone: | | | | | Procedures | [place] [address] | [phone] | | | | | CT | Phone: | Fax: | | | | | Treatment | [phone] | [phone] | | | | | Plan Complex | Fax: | | | | | | CT TX PLAN | [phone] | | +--------+--------+ + + + + [...] | | Consult/Recu | [address] | [place] [address] | | | | | rrent Basel | [place], | Phone: | | | | | Cell/[place] | [place] [address] | [phone] | | | | | soler | Phone: | Fax: | | | | | Procedures | [phone] | [phone] | | | | | [place] OFFICE | Fax: | | | | | | OUTPATIENT | [phone] | | | | | | NEW 60 | | | | | | | MINUTES NEW | | | | | | | PATIENT | | | +--------+--------+ + + + + Encounter Details +--------+ + + + + | Date | Type | Department | Care Team | Description | +--------+ + + + + | 08/01/ | Hospital | [facility] | Ashu Singh DO | Basal cell carcinoma | | 2019 | Encounter | MED CTR RADIATION | [address] | (BCC) of skin of | | | | ONCOLOGY CLINIC [address] | [place] | neck (Primary Dx) | | | | [address] | [address] | | | | | [place] [address] | | | | | | [phone] | | | +--------+ + + + [...] [place] | | | | | | [address] | | | | | | | [...]
--- OUTSIDE RECORDS SUMMARY | ~2018-10-05 | XMS | Encounter Summary ---
Demographics + + + | Address | [address] | | | [place] [address] | + + + | Home Phone [...] + | Author | [facility] | | | and [place] | + + + | Organization | [facility] | | | and [...] [place], [place] | | | | | [address] | | + + + + + | Isabella Merino | ECON | [address] | | | "Tiki" | | [place], [place] | | | | | [address] | | + + + + + Care Team Providers + +------+ + | Care Hotel Server Name | Role | Phone | + [...] [place] | | | | | [place] | [address] | | | | | [place] [address] | | | | | | [phone] | | | +--------+ + + + [...] [place] | | | | | | [address] | | | | | | | | +--------+ + + + + as of this encounter Visit Diagnoses Not on filein this encounter
--- OUTSIDE RECORDS SUMMARY | ~2018-10-05 | XMS | Encounter Summary ---
Demographics + + + | Address | [address] | | | [place] [address] | + + + | Home Phone [...] | Author | [facility] | | | and [place] | + + + | Organization | [facility] | | | [...] [place], [place] | | | | | [address] | | + + + + + | Isabella Merino | ECON | [address] | | | "Tiki" | | [place], [place] | | | | | [address] | | + + + + + Care Team Providers + +------+ + | Care Slurry Tank Operator Name | Role | Phone | [...] | 08/08/ | Hospital | [facility] | Ashu Singh DO | | | 2019 | Encounter | MED [address] | [address] | | | | | [place], | [place] | | | | | [place] [address] | [address] | | | | | [phone] | | | +--------+ + + + [...] 01/08/ | Appointment | Radiation Oncology | Ahsu Singh DO | | | 2019 | | | [address] | | | | | | [place] | | | | | | [address] | | | | | | | [...]
--- OUTSIDE RECORDS SUMMARY | ~2018-10-05 | XMS | Encounter Summary ---
Demographics + + + | Address | [address] | | | [place] [address] | + + + | Home Phone [...] Author | [facility] | | | and [place] | + + + | Organization | [facility] | | | and [...] [place], [place] | | | | | [address] | | + + + + + | Isabella Merino | ECON | [address] | | | "Tiki" | | [place], [place] | | | | | [address] | | + + + + + Care Team Providers + +------+ + | Care Professor Of Oceanography Name | Role | Phone | + [...] + | 08/08/ | Telephone | [facility] | Ashu Singh DO | IDT Note | | 2019 | | MED CTR RADIATION | [address] [facility] | | | | | ONCOLOGY CLINIC [address] | [place] | | | | | [place] | [address] | | | | | [place] [address] | | | | | | [phone] | | | +--------+ + + + [...] [place] | | | | | | [id number] | | | | | | | | +--------+ + + + + as of this encounter Visit Diagnoses Not on filein this encounter
--- OUTSIDE RECORDS SUMMARY | ~2018-10-05 | XMS | Encounter Summary ---
Demographics + + + | Address | [address] | | | [place] [address] | + + + | Home Phone | | + + + | Preferred Language | Unknown | + + + | Marital Status | | + + + | Evangelical Affiliation | Unknown | + + + | Race | Unknown | + + + | Ethnic Group | Unknown | + + + Author + + + | Author | [facility] | | | and [place] | + + + | Organization | [facility] | | | and [place] [...] [place], [place] | | | | | [address] | | + + + + + | Isabella Merino | ECON | [address] | | | "Tiki" | | [place], [place] | | | | | [address] | | + + + + + Care Team Providers + +------+ + | Care Kit Assembler Name | Role | Phone | + [...] + + | 09/07/ | Refill | [facility] | Ashu Singh DO | Medication Refill | | 2019 | | MED CTR RADIATION | [address] [facility] | | | | | ONCOLOGY CLINIC 401 | [place] | | | | | [place] | [address] | | | | | [place] [address] | | | | | | [phone] | | | +--------+--------+ + + + [...] [place] | | | | | | [address] | | | | | | | [...]
--- OUTSIDE RECORDS SUMMARY | ~2018-10-05 | XMS | Encounter Summary ---
Demographics + + + | Address | [address] | | | [place] [address] | + + + | Home Phone [...] + + | Author | [facility] | | | and [place] | + + + | Organization | [facility] | | | and [place] [...] [place], [place] | | | | | [address] | | + + + + + | Isabella Merino | ECON | [address] | | | "[place]" | | [place], [place] | | | | | [address] | | + + + + + Care Team Providers + +------+ + | Care Medical Asst Name | Role | Phone | + [...] | | | | Recurrent | [place] [address] | [place], [place] | | | | | basal cell | Phone: | [address] | | | | | carcinoma | [phone] | Phone: | | | | | | Fax: | [phone] | | | | | | [phone] | Fax: | | | | | | | [phone] | +--------+ + + + + + Reason for Visit + + + | Reason | Comments | + + + | Under Treatment | | + + + Encounter Details +--------+ + + + + | Date | Type | Department | Care Team | Description | +--------+ + + + + | 09/28/ | Hospital | [facility] | Ashu Singh DO | Basal cell carcinoma | | 2019 | Encounter | MED CTR RADIATION | [address] | (BCC) of skin of | | | | ONCOLOGY CLINIC [address] | [place], [place] | neck (Primary Dx); | | | | [facility] | [address] | Recurrent basal cell | | | | [place] [address] | | carcinoma | | | | [phone] | | | +--------+ + + + [...] 6 Pain Quality: Stable Current pain regimen: [place] 10/325 1 tab q 6hours Wt Readings [...] this well with no signific ant pruritus. [place] 10 mg/325mg has been titrated to 1 [...] | | | | | | [place], [place] | | | | | | [address] | | | | | | | | +--------+ + + + + + +--------+ + + | Name | Priori | Associated Diagnoses | Order Schedule | | | ty | | | + +--------+ + + | [facility] | Routin | Basal cell [...]
--- OUTSIDE RECORDS SUMMARY | ~2018-10-05 | XMS | Clinical Summary ---
Demographics + + + | Address | [address] | | | [place] [address] | + + + | Home Phone | | + + + | Preferred Language | Unknown | + + + | Marital Status | | + + + | Mormon Affiliation | Unknown | + + + | Race | Unknown | + + + | Ethnic Group | Unknown | + + + Author + + + | Author | [facility] | | | and [place] | + + + | Organization | [facility] | | | and [place] [...] [place], [place] | | | | | [address] | | + + + + + | Isabella Jorge | ECON | [address] | | | "Tiki" | | [place], [place] | | | | | [address] | | + + + + + Care Team Providers + +------+ + | Care Tank Storage Supervisor Name | Role | Phone | [...] + | 08/14/ | Refill | | Asuh Singh, DO | Medication Refill | | [...] [place] | | | | | | [address] | | | | | | | [...] +---------+--------+ +--------+ +---------+ | | TRICAR | [id number] | Indemn | [phone] | | [...] | fransisca | | | [phone] | [phone] | + +--------+ +--------+ + +
--- OUTSIDE RECORDS SUMMARY | ~2018-10-05 | XMS | Encounter Summary ---
Demographics + + + | Address | [address] | | | [place] [address] | + + + | Home Phone | | + + + | Preferred Language | Unknown | + + + | Marital Status | | + + + | Latter-Day Affiliation | Unknown | + + + | Race | Unknown | + + + | Ethnic Group | Unknown | + + + Author + + + | Author | [facility] | | | and [place] | + + + | Organization | [facility] | | | and [...] [place], [place] | | | | | [address] | | + + + + + | Isabella Merino | ECON | [address] | | | "Tiki" | | [place], [place] | | | | | [address] | | + + + + + Care Team Providers + +------+ + | Care Pmo Manager Name | Role | Phone | [...] + + | 09/14/ | Hospital | [facility] | Ashu Singh DO | Recurrent basal cell | | 2019 | Encounter | MED CTR RADIATION | [address] | carcinoma (Primary | | | | ONCOLOGY CLINIC 401 | [place] | Dx) | | | | [place] | [address] | | | | | [place] [address] | | | | | | [phone] | | | +--------+ + + + [...] 3 Pain Quality: Stable Current pain regimen: [place] 5/325 2 tabs 3 times a day [...] tolerating this well with no significant pruritus. [place] has been titrated to 2 tabs 3 [...] | 2018 | | | [address] [facility] | | | | | | [place] [...]
--- OUTSIDE RECORDS SUMMARY | ~2018-10-05 | XMS | Encounter Summary ---
Demographics + + + | Address | [address] | | | [place] [address] | + + + | Home Phone [...] + | Author | [facility] | | | and [place] | + + + | Organization | [facility] | | | and [place] [...] [place], [place] | | | | | [address] | | + + + + + | Isabella Merino | ECON | [address] | | | "T[place]" | | [place], [place] | | | | | [address] | | + + + + + Care Team Providers + +------+ + | Care Freight Separator Name | Role | Phone | + [...] + | 08/03/ | Telephone | [facility] | Ashu Singh DO | Other | | 2019 | | MED CTR MEDICAL | [address] [facility] | | | | | ONCOLOGY CLINIC 401 | [place] | | | | | [facility] | [address] | | | | | [place] [address] | | | | | | [phone] | | | +--------+ + + + [...] [place] | | | | | | [address] | | | | | | | | +--------+ + + + + as of this encounter Visit Diagnoses Not on filein this encounter
--- OUTSIDE RECORDS SUMMARY | ~2018-10-05 | XMS | Encounter Summary ---
Demographics + + + | Address | [address] | | | [place] [address] | + + + | Home Phone [...] | [facility] | | | and [place] | + + + | Organization | [facility] | | | and [place] [...] [place], [place] | | | | | [address] | | + + + + + | Isabella Merino | ECON | [address] | | | "Tiki" | | [place], [place] | | | | | [address] | | + + + + + Care Team Providers + +------+ + | Care Dissolver Operator Name | Role | Phone | [...] + | 08/11/ | Telephone | [facility] | Ashu Singh DO | Other | | 2019 | | MED CTR MEDICAL | [address] [facility] | | | | | ONCOLOGY CLINIC 401 | [place] | | | | | W [facility] | [address] | | | | | [place] [address] | | | | | | [phone] | | | +--------+ + + + [...] [place] | | | | | | [address] | | | | | | | | +--------+ + + + + as of this encounter Visit Diagnoses Not on filein this encounter
--- OUTSIDE RECORDS SUMMARY | ~2018-10-05 | XMS | Encounter Summary ---
Demographics + + + | Address | [address] | | | [place] [address] | + + + | Home Phone [...] + | Author | [facility] | | | and [place] | + + + | Organization | [facility] | | | and [...] [place], [place] | | | | | [address] | | + + + + + | Isabella Merino | ECON | [address] | | | "Tiki" | | [place], [place] | | | | | [address] | | + + + + + Care Team Providers + +------+ + | Care Link Wire Fabric Machine Operator Name | Role | Phone [...] | | ONCOLOGY CLINIC [address] | [place], [place] | | | | | [place] | [address] | | | | | [place] [address] | | | | | | [phone] | | | +--------+ + + + [...] [place] | | | | | | [address] | | | | | | | | +--------+ + + + + as of this encounter Visit Diagnoses Not on filein this encounter
--- OUTSIDE RECORDS SUMMARY | ~2018-10-05 | XMS | Encounter Summary ---
Demographics + + + | Address | [address] | | | [place] [address] | + + + | Home Phone | | + + + | Preferred Language | Unknown | + + + | Marital Status | | + + + | Episcopal Affiliation | Unknown | + + + | Race | Unknown | + + + | Ethnic Group | Unknown | + + + Author + + + | Author | [facility] | | | and [place] | + + + | Organization | [facility] | | | and [...] [place], [place] | | | | | [address] | | + + + + + | Isabella Merino | ECON | [address] | | | "Tiki" | | [place], [place] | | | | | [address] | | + + + + + Care Team Providers + +------+ + | Care Business Systems Architect Name | Role | Phone | + [...] + | 08/03/ | Telephone | [facility] | Ashu Singh DO | Other | | 2019 | | MED CTR MEDICAL | [address] [facility] | | | | | ONCOLOGY CLINIC 401 | [place] | | | | | [facility] | [address] | | | | | [place] [address] | | | | | | [phone] | | | +--------+ + + + [...] [place] | | | | | | [address] | | | | | | | | +--------+ + + + + as of this encounter Visit Diagnoses Not on filein this encounter
--- OUTSIDE RECORDS SUMMARY | ~2018-10-05 | XMS | Encounter Summary ---
Demographics + + + | Address | [address] | | | [place] [address] | + + + | Home Phone | | + + + | Preferred Language | Unknown | + + + | Marital Status | | + + + | Mandaen Affiliation | Unknown | + + + | Race | Unknown | + + + | Ethnic Group | Unknown | + + + Author + + + | Author | [facility] | | | and [place] | + + + | Organization | [facility] | | | and [place] | [...] [place], [place] | | | | | [address] | | + + + + + | Isabella Merino | ECON | [address] | | | "T[place]" | | [place], [place] | | | | | [address] | | + + + + + Care Team Providers + +------+ + | Care Soft Top Installer Name | Role | Phone | [...] [place] | | | | | [phone] | [place] [address] | | +--------+ + + + + [...] [place] | | | | | | [address] | | | | | | | [...]
--- OUTSIDE RECORDS SUMMARY | ~2018-10-05 | XMS | Encounter Summary ---
Demographics + + + | Address | [address] | | | [place] [address] | + + + | Home Phone [...] Author | [facility] | | | and [place] | + + + | Organization | [facility] | | | and [place] [...] [place], [place] | | | | | [address] | | + + + + + | Isabella Merino | ECON | [address] | | | "T[place]" | | [place], [place] | | | | | [address] | | + + + + + Care Team Providers + +------+ + | Care Filament Welder Name | Role | Phone | [...] + + | 09/04/ | Refill | [facility] | Ashu Singh DO | Medication Refill | | 2019 | | MED CTR RADIATION | [address] [facility] | | | | | ONCOLOGY CLINIC 401 | [place] | | | | | [place] | [address] | | | | | [place] [address] | | | | | | [phone] | | | +--------+--------+ + + + [...] [place] | | | | | | [address] | | | | | | | | +--------+ + + + + as of this encounter Visit Diagnoses + + | Diagnosis | + + | Recurrent basal cell carcinoma | + + | Basal cell carcinoma of skin, site unspecified | + +
--- OUTSIDE RECORDS SUMMARY | ~2018-10-05 | XMS | Encounter Summary ---
Demographics + + + | Address | [address] | | | [place] [address] | + + + | Home Phone | | + + + | Preferred Language | Unknown | + + + | Marital Status | | + + + | Sabianism Affiliation | Unknown | + + + | Race | Unknown | + + + | Ethnic Group | Unknown | + + + Author + + + | Author | [facility] | | | and [place] | + + + | Organization | [facility] | | | and [place] | [...] [place], [place] | | | | | [address] | | + + + + + | Isabella Merino | ECON | [address] | | | "[place]" | | [place], [place] | | | | | [address] | | + + + + + Care Team Providers + +------+ + | Care Auto Wash Buffer Name | Role | Phone | [...] + + | 08/14/ | Refill | [facility] | Ashu Singh DO | Medication Refill | | 2019 | | MED CTR MEDICAL | [address] [facility] | | | | | ONCOLOGY CLINIC 401 | [place] | | | | | [address] [place] | [address] | | | | | [place] [address] | | | | | | [phone] | | | +--------+--------+ + + + [...] [place] | | | | | | [address] | | | | | | | | +--------+ + + + + as of this encounter Visit Diagnoses + + | Diagnosis | + + | Recurrent basal cell carcinoma - Primary | + + | Basal cell carcinoma of skin, site unspecified | + +
--- OUTSIDE RECORDS SUMMARY | ~2018-10-05 | XMS | Encounter Summary ---
Demographics + + + | Address | [address] | | | [place] [address] | + + + | Home Phone [...] Author | [facility] | | | and [place] | + + + | Organization | [facility] | [...] [place], [place] | | | | | [address] | | + + + + + | Isabella Merino | ECON | [address] | | | "[place]" | | [place], [place] | | | | | [address] | | + + + + + Care Team Providers + +------+ + | Care Network Engineer Administrator Name | Role | Phone | [...] Yesenia DALAL | | | | | [phone] | [place] [address] | | +--------+ + + + + [...] [place] | | | | | | [address] | | | | | | | [...]
--- OUTSIDE RECORDS SUMMARY | ~2018-10-05 | XMS | Encounter Summary ---
Demographics + + + | Address | [address] | | | [place] [address] | + + + | Home Phone [...] Author | [facility] | | | and [place] | + + + | Organization | [facility] | | | and [place] [...] [place], [place] | | | | | [address] | | + + + + + | Isabella Merino | ECON | [address] | | | "Tiki" | | [place], [place] | | | | | [address] | | + + + + + Care Team Providers + +------+ + | Care Thermo Processor Name | Role | Phone | + +------+ + | Alen Bolanos MD | PCP | | + +------+ + Encounter Details +--------+ + + + + | Date | Type | Department | Care Team | Description | +--------+ + + + + | 08/09/ | Hospital | [facility] | Ashu Singh DO | | | 2019 | Encounter | MED CTR RADIATION | [address] | | | | | ONCOLOGY [address] | [place], [place] | | | | | [place], | [address] | | | | | [place] [address] | | | | | | [phone] | | | +--------+ + + + [...] [place] | | | | | | [address] | | | | | | | | +--------+ + + + + as of this encounter Visit Diagnoses Not on filein this encounter
--- OUTSIDE RECORDS SUMMARY | ~2018-10-05 | XMS | Encounter Summary ---
Demographics + + + | Address | [address] | | | [place] [address] | + + + | Home Phone | | + + + | Preferred Language | Unknown | + + + | Marital Status | | + + + | Anglican Affiliation | Unknown | + + + | Race | Unknown | + + + | Ethnic Group | Unknown | + + + Author + + + | Author | [facility] | | | and [place] | + + + | Organization | [facility] | | | and [...] [place], [place] | | | | | [address] | | + + + + + | Isabella Merino | ECON | [address] | | | "Tiki" | | [place], [place] | | | | | [address] | | + + + + + Care Team Providers + +------+ + | Care Technology Consultant Name | Role | Phone | [...] + + | 09/07/ | Refill | [facility] | Ashu Singh DO | Medication Refill | | 2019 | | MED CTR RADIATION | [address] [facility] | | | | | ONCOLOGY CLINIC [address] | [place] | | | | | [place] | [address] | | | | | [place] [address] | | | | | | [phone] | | | +--------+--------+ + + + [...] [place] | | | | | | [address] | | | | | | | [...]
--- OUTSIDE RECORDS SUMMARY | ~2018-10-05 | XMS | Encounter Summary ---
Demographics + + + | Address | [address] | | | [place] [address] | + + + | Home Phone [...] Author | [facility] | | | and [place] | + + + | Organization | [facility] | | | and [...] [place], [place] | | | | | [address] | | + + + + + | Isabella Merino | ECON | [address] | | | "Tiki" | | [place], [place] | | | | | [address] | | + + + + + Care Team Providers + +------+ + | Care Environmental Services Director Name | Role | Phone | [...] [place] D[place] | | | | | [phone] | [place] [address] | | +--------+ + + + + [...] [place] | | | | | | [address] | | | | | | | [...]
--- OUTSIDE RECORDS SUMMARY | ~2018-10-05 | XMS | Encounter Summary ---
Demographics + + + | Address | [address] | | | [place] [address] | + + + | Home Phone [...] | Author | [facility] | | | and [place] | + + + | Organization | [facility] | | [...] [place], [place] | | | | | [address] | | + + + + + | Isabella Merino | ECON | [address] | | | "Tiki" | | [place], [place] | | | | | [address] | | + + + + + Care Team Providers + +------+ + | Care Bitumen Plant Operator Name | Role | Phone | [...] + + | 09/21/ | Hospital | [facility] | Ashu Singh DO | Basal cell carcinoma | | 2019 | Encounter | MED CTR RADIATION | [address] | (BCC) of skin of | | | | ONCOLOGY CLINIC [address] | [place] | neck (Primary Dx) | | | | [facility] | [address] | | | | | [place] [address] | | | | | | [phone] | | | +--------+ + + + [...] 6 Pain Quality: Stable Current pain regimen: Peck 5/325 2 tabs 4 times a day [...] this well with no signific ant pruritus. Peck has been titrated to 2 tabs 4 times a day leading to improved overall p ain control-he is now requesting a refill. I will represcribed Peck at 10 mg/325 mg 1-2 ta b [...] [place] | | | | | | [address] | | | | | | | | +--------+ + + + + as of this encounter Visit Diagnoses + + | Diagnosis | + + | Basal cell carcinoma (BCC) of skin of neck - Primary | + +
--- OUTSIDE RECORDS SUMMARY | ~2018-10-05 | XMS | Encounter Summary ---
Demographics + + + | Address | [address] | | | [place] [address] | + + + | Home Phone [...] | Author | [facility] | | | and [place] | + + + | Organization | [facility] | | | and [place] [...] [place], [place] | | | | | [address] | | + + + + + | Isabella Merino | ECON | [address] | | | "Tiki" | | [place], [place] | | | | | [address] | | + + + + + Care Team Providers + +------+ + | Care Die Holder Name | Role | Phone | + [...] + | 09/14/ | Hospital | [facility] | Ashu Singh DO | Recurrent basal cell | | 2019 | Encounter | MED CTR RADIATION | [address] | carcinoma (Primary | | | | ONCOLOGY CLINIC [address] | [place] | Dx) | | | | [address] [place] | [address] | | | | | [place] [address] | | | | | | [phone] | | | +--------+ + + + [...] 3 Pain Quality: Stable Current pain regimen: [place] 5/325 2 tabs 3 times a day [...] tolerating this well with no significant pruritus. [place] has been titrated to 2 tabs 3 [...] | 2018 | | | [address] [facility] | | | | [...]
--- OUTSIDE RECORDS SUMMARY | ~2018-10-05 | XMS | Clinical Summary ---
Demographics + + + | Address | [address] | | | [place] [address] | + + + | Home Phone [...] [place] | | | | | [address] | | + + + + + Care Team Providers + +------+ + | Care Business Division Chair Name | Role | Phone | + +------+ + | Alen Bolanos MD | PP | | + +------+ + Source Comments KRISTI is fully live on both [facility] and [facility] Allergies No Known Allergies Current Medications + [...] | PPO | +1- | [address] [address] [place] | | | [place]OSS | | | [address] | [place] [address] | | | [place] | | | | | | | L | | | | | + +--------+ +------+ + + | [facility] | UNITED | xxxxxxxxx | PPO [...] | [place] | | | [address] | [address] | + +--------+ +--------+ + +"
--- OUTSIDE RECORDS SUMMARY | ~2018-10-05 | XMS | Encounter Summary ---
Demographics + + + | Address | [address] | | | [place] [address] | + + + | Home Phone [...] Author | [facility] | | | and [place] | + + + | Organization | [facility] | | | and [place] [...] [place], [place] | | | | | [address] | | + + + + + | Isabella Merino | ECON | [address] | | | "Tiki" | | [place], [place] | | | | | [address] | | + + + + + Care Team Providers + +------+ + | Care Imaging Specialist Name | Role | Phone | [...] | 09/04/ | Refill | [facility] | Ashu Singh DO | Medication Refill | | 2019 | | MED CTR RADIATION | [address] [facility] | | | | | ONCOLOGY CLINIC 401 | [place] | | | | | [place] | [address] | | | | | [place] [address] | | | | | | [phone] | | | +--------+--------+ + + + [...] [place] | | | | | | [address] | | | | | | | | +--------+ + + + + as of this encounter Visit Diagnoses + + | Diagnosis | + + | Recurrent basal cell carcinoma | + + | Basal cell carcinoma of skin, site unspecified | + +
[~2018-10-05 10:57] MED LIST: ASPIR-LOW81 MG PO; KEPPRA500 MG PO; LIPITOR20 MG PO; LISINOPRIL-HCT1 EAC2 PO; OMEGA-31000 MG PO; PRILOSEC OTC20 MG PO; SILVADENE20 GM TOP; ULTRAM50 MG PO; ZOFRAN ODT4 MG PO
--- OUTSIDE RECORDS SUMMARY | 2018-10-05 11:00 | XMS ---
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 Care History Medical/Surgical 05/15/2018 [facility] - Patient is currently established with [facility]. If patient is seen in the ED during business hours. Please contact CHWs at [facility]. Care Recommendation: This patient has had 5 or more Emergency Department visits in the last 12 months.\T\nbsp; Patient requires education on the scope and purpose of the ED as an acute care provider not a Primary Care Provider and should not be utilized for chronic conditions.\T\nbsp; These are guidelines and the provider should exercise clinical judgment when providing care. E.D. VISIT COUNT (12 MO.) 3 [facility] TOTAL 3 NOTE: Visits indicate total known visits. ED/UCC VISIT TRACKING (12 MO.) 10/05/2018 10:58 [facility] [place] TYPE: Emergency COMPLAINT: - RIGHT ARM NUMBESS, ALTERED SPEACH 05/13/2018 15:23 [facility] [place] TYPE: Emergency COMPLAINT: - POSS STROKE DIAGNOSES: - Unspecified convulsions - terminal carman (current) use of aspirin - Personal history of transient ischemic attack (TIA), and cerebral infarction without residual deficits - Hyperlipidemia, unspecified - senior living (current) use of opiate analgesic - Other longterm (current) drug therapy - Nicotine dependence, unspecified, uncomplicated - Essential (primary) hypertension 05/10/2018 14:[address] [facility] [place] TYPE: Emergency COMPLAINT: - STROKE SYMPTOMS DIAGNOSES: - Basal cell carcinoma of skin of scalp and neck - Other longterm (current) drug therapy - Basal cell carcinoma of skin of scalp and neck - senior living (current) use of aspirin - Essential (primary) hypertension - Hyperlipidemia, unspecified - Nicotine dependence, unspecified, uncomplicated INPATIENT VISIT TRACKING (12 MO.) No inpatient visits to display in this time frame [email or web address]
[2018-10-05] MEDS ORDERED: HYDROCODON-ACE1 EAC8 PO ×2 (11:22)
[2018-10-05] MEDS ORDERED: NARCAN4 MG ×2 (11:23)
[2018-10-05] MEDS ORDERED: GABAPENTIN300 MG PO ×2 (11:24)
--- NOTE | 2018-10-05 15:37 | EKG ---
[facility] [address] [facility] [place], [place] [address] Signed Normal sinus rhythm Normal ECG No previous ECGs available Confirmed by ZAKIYA POWELL DO ([id number]) on 10/05/2018 3:36:58 PM Electronically Signed By: ZAKIYA POWELL DO 10/05/18 1537 PATIENT NAME: TREVER JORGE Electrocardiogram DATE OF : 53 PHYSICIAN: ZAKIYA POWELL DO REPORT #: [id number] REPORT IS CONFIDENTIAL AND NOT TO BE RELEASED WITHOUT AUTHORIZATION
[2018-10-06] MEDS ORDERED: ASPIRIN81 MG PO (13:05)
[2018-10-06] MEDS ORDERED: ATORVASTATIN CA40 MG PO (13:06)
[2018-10-06] MEDS ORDERED: LIPITOR80 MG GT (13:53)
== END 2018-10-05 13:19 | disposition home or self-care (01) ==
LOC: ED 10:57
DX: G45.9 Transient cerebral ischemic attack, unspecified (principal); I10 Essential (primary) hypertension; E78.5 Hyperlipidemia, unspecified; Z85.828 Personal history of other malignant neoplasm of skin; F17.200 Nicotine dependence, unspecified, uncomplicated; Z79.899 Other long term (current) drug therapy; Z79.82 Long term (current) use of aspirin
CPT/HCPCS: 70450; 71045; 80053; 81001; 84484; 85025; 85610; 85730; 93005; 93010; 99285-25; 99406

== ENCOUNTER 2018-10-05 20:06 | Inpatient (IN) | payer OTHER ==
[~2018-10-05] VITALS: Ht 175.3 cm; Wt 79.4 kg
--- OUTSIDE RECORDS SUMMARY | ~2018-10-05 | XMS | Clinical Summary ---
Demographics + + + | Address | [address] | | | [place] [address] | + + + | Home Phone | | + + + | Preferred Language | Unknown | + + + | Marital Status | | + + + | Jewish Affiliation | Unknown | + + + | Race | White | + + + | Ethnic Group | Not or | + + + Author + + + | Author | [facility] | + + + | Organization | [facility] | + + + | Address | Unknown | + + + | Phone | Unavailable | + + + Support + + + + + | Name | Relationship | Address | Phone | + + + + + | GEOVANNI JORGE | ECON | [address] | | | | [address] | | | | | [address] | | + + + + + Care Team Providers + +------+ + | Care Education Professional Name | Role | Phone | + +------+ + | Alen Bolanos MD | PP | | + +------+ + Source Comments KRISTI is fully live on both [facility] Ambulatory and [facility] InPatient.[facility] Allergies No Known Allergies Current Medications + + +-------+---------+------+------+-------+ | Prescription | Sig. | Disp. | Refills | Star | End | Statu | | | | | | t | Date | s | | | | | | Date | | | + + +-------+---------+------+------+-------+ | PRILOSEC OR | Take by mouth. | | | | | Activ | | | | | | | | e | + + +-------+---------+------+------+-------+ | Aspirin 81 mg Oral | Take 81 mg by mouth | | | | | Activ | | Tablet | once daily. | | | | | e | + + +-------+---------+------+------+-------+ | cephALEXin | Take 4 Caps by mouth | 4 | 0 | 06/2 | | Activ | | (KEFLEX) 500 mg Oral | once. | | | 2/20 | | e | | Capsule | | | | 09 | | | + + +-------+---------+------+------+-------+ Active Problems + + + | Problem | Noted Date | + + + | Malignant neoplasm of skin | | + + + + + | Overview: ICD10 | + + Social History + + + +--------+------+ | Tobacco Use | Types | Packs/Day | Years | Date | | | | | Used | | + + + +--------+------+ | Current Every Day | Cigarettes | 1 | | | | Smoker | | | | | + + + +--------+------+ + + + | Sex Assigned at | Date Recorded | | | | + + + | Not on file | | + + + Last Filed Vital Signs + +---------+ + | Vital Sign | Reading | Time Taken | + +---------+ + | Blood Pressure | 140/80 | 12/23/2008 8:46 AM PDT | + +---------+ + | Pulse | 80 | 12/23/2008 8:46 AM PDT | + +---------+ + | Temperature | - | - | + +---------+ + | Respiratory Rate | 18 | 12/23/2008 8:46 AM PDT | + +---------+ + | Oxygen Saturation | - | - | + +---------+ + | Inhaled Oxygen | - | - | | Concentration | | | + +---------+ + | Weight | - | - | + +---------+ + | Height | - | - | + +---------+ + | Body Mass Index | - | - | + +---------+ + Plan of Treatment + + + + + | Health Maintenance | Due Date | Last Done | Comments | + + + + + | Pneumococcal (Adult) | | | | | (1 of 1 - PPSV23) | 3 | | | + + + + + | Influenza (Flu) | | | | | vaccination (#1) | 8 | | | + + + + + Results Not on filefrom Last 3 Months Insurance + +--------+ +------+ + + | Payer | Benefi | Subscriber | Type | Phone | Address | | | t Plan | ID | | | | | | / | | | | | | | Group | | | | | + +--------+ +------+ + + | [employer] [place] | BLUE | xxxxxxxxx | PPO | [phone]- | [address] [address] [place] | | | CROSS | | | [address] | [place] [address] | | | [place] | | | | | | | L | | | | | + +--------+ +------+ + + | [facility] | UNITED | xxxxxxxxx | PPO | | | | | | | | | | | | HEALTH | | | | | | | CARE | | | | | + +--------+ +------+ + + + +--------+ +--------+ + + | Guarantor Name | Accoun | Relation to | Date | Phone | Billing Address | | | t Type | Patient | of | | | | | | | | | | + +--------+ +--------+ + + | TREVER JORGE | Person | Self [birth year] | Home: | [address] | | | al/[place] | | 1955 | [phone] | [place] | | | [place]a | | | [phone] | [address] | + +--------+ +--------+ + +"
--- OUTSIDE RECORDS SUMMARY | ~2018-10-05 | XMS | Encounter Summary ---
Demographics + + + | Address | [address] | | | [place] [address] | + + + | Home Phone | | + + + | Preferred Language | Unknown | + + + | Marital Status | | + + + | Moravian Affiliation | Unknown | + + + | Race | Unknown | + + + | Ethnic Group | Unknown | + + + Author + + + | Author | [facility] | | | and [place] | + + + | Organization | [facility] | | | and [place] | + + + | Address | Unknown | + + + | Phone | Unavailable | + + + Support + + + + + | Name | Relationship | Address | Phone | + + + + + | Wilber,Delanee | ECON | [address] | | | | | [place], [place] | | | | | [address] | | + + + + + | Isabella Merino | ECON | [address] | | | "[place]" | | [place], [place] | | | | | [address] | | + + + + + Care Team Providers + +------+ + | Care Straightedge Man Name | Role | Phone | + [...] | MED CTR RADIATION | [address] [facility] | | | | | ONCOLOGY CLIN[address] | [place] | | | | | [address] [place] [address] | [address] | | | | | [place] [address] | | | | | | [phone] | | | +--------+ + + + [...] [place] | | | | | | [address] | | | | | | | | +--------+ + + + + as of this encounter Visit Diagnoses Not on filein this encounter
--- OUTSIDE RECORDS SUMMARY | ~2018-10-05 | XMS | Encounter Summary ---
Demographics + + + | Address | [address] | | | [place] [address] | + + + | Home Phone | | + + + | Preferred Language | Unknown | + + + | Marital Status | | + + + | Restorationism Affiliation | Unknown | + + + | Race | Unknown | + + + | Ethnic Group | Unknown | + + + Author + + + | Author | [facility] | | | and [place] | + + + | Organization | [facility] | | | and [place] | [...] [place], [place] | | | | | [address] | | + + + + + | Isabella Merino | ECON | [address] | | | "T[place]" | | [place], [place] | | | | | [address] | | + + + + + Care Team Providers + +------+ + | Care Cupola Man Name | Role | Phone | + +------+ + | Alen Bolanos MD | PCP | | + +------+ + Reason for Visit Auth/Cert +--------+--------+ + + + + | Status | Reason | Specialty | Diagnoses / | Referred By | Referred To | | | | | Procedures | Contact | Contact | +--------+--------+ + + + + | | | | | | | +--------+--------+ + + + + Encounter Details +--------+ + + + + | Date | Type | Department | Care Team | Description | +--------+ + + + + | 08/08/ | Hospital | [facility] | Asuh Singh DO | | | 2019 | Encounter | MED CTR [address] | [address] | | | | | [place], | [place] | | | | | [place] [address] | [address] | | | | | [phone] | | | +--------+ + + + [...] | 0 | 05/11/20 | | | (ZOFRAN ODT) 4 mg | NAUSEA | | [...] [place] | | | | | | [address] | | | | | | | | +--------+ + + + + as of this encounter Procedures + +--------+ + + + | Procedure Name | Priori | Date/Time | Associated Diagnosis | Comments | | | ty | | | | + +--------+ + + + | CT TREATMENT PLAN | Routin | 08/08/2018 | Basal cell | Results for this | | COMPLEX | e | 1143 PST | carcinoma (BCC) of | procedure are in the | | | | | skin of neck | results section. | + +--------+ + + + in this encounter Visit Diagnoses Not on filein this encounter
--- OUTSIDE RECORDS SUMMARY | ~2018-10-05 | XMS | Encounter Summary ---
Demographics + + + | Address | [address] | | | [place] [address] | + + + | Home Phone | | + + + | Preferred Language | Unknown | + + + | Marital Status | | + + + | Judaism Affiliation | Unknown | + + + | Race | Unknown | + + + | Ethnic Group | Unknown | + + + Author + + + | Author | [facility] | | | and [place] | + + + | Organization | [facility] | | | and [...] [place], [place] | | | | | [address] | | + + + + + | Isabella Merino | ECON | [address] | | | "[place]" | | [place], [place] | | | | | [address] | | + + + + + Care Team Providers + +------+ + | Care Medical Research Assistant Name | Role | Phone | + +------+ + PCP | Unavailable | + +------+ + Encounter Details +--------+ + + + + | Date | Type | Department | Care Team | Description | +--------+ + + + + | 07/12/ | Imaging | [facility] | Provider, | | | 2019 | Exam | MED CTR EXTERNAL | [address] | | | | | IMAGING | [place] | | | | | [phone] | [place] [address] | | +--------+ + + + + [...] [place] | | | | | | [id number] | | | | | | | | +--------+ + + + + as of this encounter Procedures + +--------+ + + + | Procedure Name | Priori | Date/Time | Associated Diagnosis | Comments | | | ty | | | | + +--------+ + + + | PET CT WHOLE BODY | Routin | 07/12/2018 | | Results for this | | | e | 1130 PST | | procedure are in the | | | | | | results section. | + +--------+ + + + in this encounter Results PET CT Whole Body (07/12/2018 1130) + + + | Narrative | Performed At | + + + | External films for comparison only | [facility] | | | | | No results will be in the chart. | | + + + + +---------+ + + | Performing | Address | City/State/Zipcode | Phone Number | | Organization | | | | + +---------+ + + | [facility] | | | | + +---------+ + + in this encounter Visit Diagnoses Not on filein this encounter
--- OUTSIDE RECORDS SUMMARY | ~2018-10-05 | XMS | Encounter Summary ---
Demographics + + + | Address | [address] | | | [place] [address] | + + + | Home Phone | | + + + | Preferred Language | Unknown | + + + | Marital Status | | + + + | Shinto Affiliation | Unknown | + + + | Race | Unknown | + + + | Ethnic Group | Unknown | + + + Author + + + | Author | [facility] | | | and [place] | + + + | Organization | [facility] | | | and [place] | [...] [place], [place] | | | | | [address] | | + + + + + | Isabella Merino | ECON | [address] | | | "[place]" | | [place], [place] | | | | | [address] | | + + + + + Care Team Providers + +------+ + | Care Career Law Clerk Name | Role | Phone | + +------+ + | Alen Bolanos MD | PCP | | + +------+ + Encounter Details +--------+ + + + + | Date | Type | Department | Care Team | Description | +--------+ + + + + | 07/31/ | Abstract | [facility] | Ashu Singh DO | | | 2019 | | MED CTR RADIATION | [address] | | | | | ONCOLOGY CLINIC [address] | [place] | | | | | [place] | [address] | | | | | [place] [address] | | | | | | [phone] | | | +--------+ + + + [...] 2018 | | | [address] | | | | | | [place] | | | | | | [id number] | | | | | | | | +--------+ + + + + as of this encounter Visit Diagnoses Not on filein this encounter
--- OUTSIDE RECORDS SUMMARY | ~2018-10-05 | XMS | Encounter Summary ---
Demographics + + + | Address | [address] | | | [place] [address] | + + + | Home Phone [...] Author | [facility] | | | and [place] | + + + | Organization | [facility] | | | and [place] [...] [place], [place] | | | | | [address] | | + + + + + | Isabella Merino | ECON | [address] | | | "[place]" | | [place], [place] | | | | | [address] | | + + + + + Care Team Providers + +------+ + | Care Asphalt Plant Laborer Name | Role | Phone | + [...] + + | 08/14/ | Refill | [facility] | Ashu Singh DO | Medication Refill | | 2019 | | MED CTR MEDICAL | [address] [facility] | | | | | ONCOLOGY CLINIC [address] | [place] | | | | | [place] | [address] | | | | | [place] [address] | | | | | | [phone] | | | +--------+--------+ + + + [...] [place] | | | | | | [address] | | | | | | | | +--------+ + + + + as of this encounter Visit Diagnoses + + | Diagnosis | + + | Recurrent basal cell carcinoma - Primary | + + | Basal cell carcinoma of skin, site unspecified | + +
--- OUTSIDE RECORDS SUMMARY | ~2018-10-05 | XMS | Encounter Summary ---
Demographics + + + | Address | [address] | | | [place] [address] | + + + | Home Phone | | + + + | Preferred Language | Unknown | + + + | Marital Status | | + + + | Uatsdin Affiliation | Unknown | + + + | Race | Unknown | + + + | Ethnic Group | Unknown | + + + Author + + + | Author | [facility] | | | and [place] | + + + | Organization | [facility] | | | and [...] [place], [place] | | | | | [address] | | + + + + + | Isabella Merino | ECON | [address] | | | "[place]" | | [place], [place] | | | | | [address] | | + + + + + Care Team Providers + +------+ + | Care Plumber Assistant Name | Role | Phone | [...] + | 08/08/ | Telephone | [facility] | Ashu Singh DO | IDT Note | | 2019 | | MED CTR RADIATION | [address] [facility] | | | | | ONCOLOGY CLINIC [address] | [place], [place] | | | | | [place] | [address] | | | | | [facility] [place] [address] | | | | | | [phone] | | | +--------+ + + + [...] [place] | | | | | | [address] | | | | | | | | +--------+ + + + + as of this encounter Visit Diagnoses Not on filein this encounter
--- OUTSIDE RECORDS SUMMARY | ~2018-10-05 | XMS | Encounter Summary ---
Demographics + + + | Address | [address] | | | [place] [address] | + + + | Home Phone | | + + + | Preferred Language | Unknown | + + + | Marital Status | | + + + | Christian Affiliation | Unknown | + + + | Race | Unknown | + + + | Ethnic Group | Unknown | + + + Author + + + | Author | [facility] | | | and [place] | + + + | Organization | [facility] | | | and [...] [place], [place] | | | | | [address] | | + + + + + | Isabella Merino | ECON | [address] | | | "[place]" | | [place], [place] | | | | | [address] | | + + + + + Care Team Providers + +------+ + | Care Business Intelligence Administrator Name | Role | Phone | + +------+ + | Alen Bolanos MD | PCP | | + +------+ + Encounter Details +--------+ + + + + | Date | Type | Department | Care Team | Description | +--------+ + + + + | 09/06/ | Hospital | [facility] | Ashu Singh DO | | | 2019 | Encounter | MED CTR RADIATION | [address] | | | | | ONCOLOGY [address] | [place], [place] | | | | | [place], | [address] | | | | | [place] [address] | | | | | | [phone] | | | +--------+ + + + [...] +---------+---------+ + + | gabapentin | Take 2 [...] [place] | | | | | | [address] | | | | | | | | +--------+ + + + + as of this encounter Visit Diagnoses Not on filein this encounter
--- OUTSIDE RECORDS SUMMARY | ~2018-10-05 | XMS | Encounter Summary ---
Demographics + + + | Address | [address] | | | [place] [address] | + + + | Home Phone | | + + + | Preferred Language | Unknown | + + + | Marital Status | | + + + | Mosque Affiliation | Unknown | + + + | Race | Unknown | + + + | Ethnic Group | Unknown | + + + Author + + + | Author | [facility] | | | and [place] | + + + | Organization | [facility] | | | and [place] | [...] [place], [place] | | | | | [address] | | + + + + + | Isabella Merino | ECON | [address] | | | "Tiki" | | [place], [place] | | | | | [address] | | + + + + + Care Team Providers + +------+ + | Care Clinical Rn Liaison Name | Role | Phone | + +------+ + | Alen Bolanos MD | PCP | | + +------+ + Encounter Details +--------+ + + + + | Date | Type | Department | Care Team | Description | +--------+ + + + + | 09/06/ | Hospital | [facility] | Ashu Singh DO | | | 2019 | Encounter | MED CTR RADIATION | [address] | | | | | ONCOLOGY [address] | [place], [place] | | | | | [place], | [address] | | | | | [place] [address] | | | | | | [phone] | | | +--------+ + + + [...] [place] | | | | | | [address] | | | | | | | | +--------+ + + + + as of this encounter Visit Diagnoses Not on filein this encounter
--- OUTSIDE RECORDS SUMMARY | ~2018-10-05 | XMS | Encounter Summary ---
Demographics + + + | Address | [address] | | | [place] [address] | + + + | Home Phone | | + + + | Preferred Language | Unknown | + + + | Marital Status | | + + + | Bahai Affiliation | Unknown | + + + | Race | Unknown | + + + | Ethnic Group | Unknown | + + + Author + + + | Author | [facility] | | | and [place] | + + + | Organization | [facility] | | | and [...] [place], [place] | | | | | [address] | | + + + + + | Isabella Merino | ECON | [address] | | | "T[place]" | | [place], [place] | | | | | [address] | | + + + + + Care Team Providers + +------+ + | Care Qlikview Developer Name | Role | Phone | [...] + + | 08/08/ | Hospital | [facility] | Ashu Singh DO | | | 2019 | Encounter | MED CTR CT [address] | [address] | | | | | [place], | [place] | | | | | [place] [address] | [address] | | | | | [phone] | | | +--------+ + + + [...] [place] | | | | | | [address] | | | | | | | [...]
--- OUTSIDE RECORDS SUMMARY | ~2018-10-05 | XMS | Encounter Summary ---
Demographics + + + | Address | [address] | | | [place] [address] | + + + | Home Phone | | + + + | Preferred Language | Unknown | + + + | Marital Status | | + + + | Confucianism Affiliation | Unknown | + + + | Race | Unknown | + + + | Ethnic Group | Unknown | + + + Author + + + | Author | [facility] | | | and [place] | + + + | Organization | [facility] | | | and [place] [...] [place], [place] | | | | | [address] | | + + + + + | Isabella Merino | ECON | [address] | | | "T[place]" | | [place], [place] | | | | | [address] | | + + + + + Care Team Providers + +------+ + | Care Greenhouse Florist Name | Role | Phone | + +------+ + | Aeln Bolanos MD | PCP | | + [...] | | | | carcinoma | [place] [address] | [place], [place] | | | | | (BCC) of | Phone: | [address] | | | | | skin of neck | [phone] | Phone: | | | | | | Fax: | [phone] | | | | | | [phone] | Fax: | | | | | | | [phone] | +--------+ + + + + + Encounter Details +--------+ + + + + | Date | Type | Department | Care Team | Description | +--------+ + + + + | 10/02/ | Hospital | [facility] | Ashu Singh DO | Recurrent basal cell | | 2019 | Encounter | MED CTR RADIATION | [address] | carcinoma (Primary | | | | ONCOLOGY CLINIC [address] | [place], [place] | Dx); Basal cell | | | | [place] | [address] | carcinoma (BCC) of | | | | [place] [address] | | skin of neck | | | | [phone] | | | +--------+ + + + [...] [place] | | | | | | [address] | | | | | | | [...]
--- OUTSIDE RECORDS SUMMARY | ~2018-10-05 | XMS | Clinical Summary ---
Demographics + + + | Address | [address] | | | [place] [address] | + + + | Home Phone | | + + + | Preferred Language | Unknown | + + + | Marital Status | | + + + | Anabaptist Affiliation | Unknown | + + + [...] [place] | | | | | [address] | | + + + + + Care Team Providers + +------+ + | Care Lead Assistant Manager Name | Role | Phone | + +------+ + | Alen Bolanos MD | PP | | + +------+ + Source Comments KRISTI is fully live on both [facility] and [facility] InPatient.[facility] Allergies No Known Allergies Current Medications + [...] | PPO | [phone]- | [address] [address] [place] | | | [address] | | | [address] | [place] [address] | | | [place] | | | | | | | L | | | | | + +--------+ +------+ + + | [facility] | UNITED | [phone] | PPO [...] | [place] | | | [address] | [address] | + +--------+ +--------+ + +"
--- OUTSIDE RECORDS SUMMARY | ~2018-10-05 | XMS | Encounter Summary ---
Demographics + + + | Address | [address] | | | [place] [address] | + + + | Home Phone | | + + + | Preferred Language | Unknown | + + + | Marital Status | | + + + | Scientology Affiliation | Unknown | + + + | Race | Unknown | + + + | Ethnic Group | Unknown | + + + Author + + + | Author | [facility] | | | and [place] | + + + | Organization | [facility] | | | and [place] [...] [place], [place] | | | | | [address] | | + + + + + | Isabella Merino | ECON | [address] | | | "Tiki" | | [place], [place] | | | | | [address] | | + + + + + Care Team Providers + +------+ + | Care Case Assistant Name | Role | Phone | + +------+ + | Alen Bolanos MD | PCP | | + +------+ + Encounter Details +--------+ + + + + | Date | Type | Department | Care Team | Description | +--------+ + + + + | 07/24/ | Ancillary | [facility] | Provider, | | | 2019 | Orders | MED CTR EXTERNAL | [address] | | | | | IMAGING | [place] | | | | | [phone] | [place] [address] | | +--------+ + + + + [...] [place] | | | | | | [address] | | | | | | | | +--------+ + + + + as of this encounter Results PET CT Whole Body [...]
--- OUTSIDE RECORDS SUMMARY | ~2018-10-05 | XMS | Encounter Summary ---
Demographics + + + | Address | [address] | | | [place] [address] | + + + | Home Phone | | + + + | Preferred Language | Unknown | + + + | Marital Status | | + + + | Bahai Affiliation | Unknown | + + + | Race | Unknown | + + + | Ethnic Group | Unknown | + + + Author + + + | Author | [facility] | | | and [place] | + + + | Organization | [facility] | | | and [...] [place], [place] | | | | | [address] | | + + + + + | Isabella Merino | ECON | [address] | | | "Tiki" | | [place], [place] | | | | | [address] | | + + + + + Care Team Providers + +------+ + | Care Cheese Pancake Roller Name | Role | Phone | + [...] | | | Basal cell | Ashu C, DO | [address] | | | | | carcinoma | [address] | [place], | | | | | (BCC) of | [address] | [place] [address] | | | | | skin of neck | [place], | Phone: | | | | | Procedures | [place] [address] | [phone] | | | | | CT | Phone: | Fax: | | | | | Treatment | [phone] | [phone] | | | | | Plan Complex | Fax: | | | | | | CT TX PLAN | [phone] | | +--------+--------+ + + + + [...] | | | the skin, | Abdullahi C, | [address] | | | | | basal cell | MD [address] | [place], | | | | | Consult/Recu | [address] | [place] [address] | | | | | rrent Basel | [place], | Phone: | | | | | Cell/Quack[place] | [place] [address] | [phone] | | | | | soler | Phone: | Fax: | | | | | Procedures | [phone] | [phone] | | | | | [place] OFFICE | Fax: | | | | | | OUTPATIENT | [phone] | | | | | | NEW 60 | | | | | | | MINUTES NEW | | | | | | | PATIENT | | | +--------+--------+ + + + + Encounter Details +--------+ + + + + | Date | Type | Department | Care Team | Description | +--------+ + + + + | 08/01/ | Hospital | [facility] | Ashu Singh DO | Basal cell carcinoma | | 2019 | Encounter | MED CTR RADIATION | [address] | (BCC) of skin of | | | | ONCOLOGY CLINIC [address] | [place] | neck (Primary Dx) | | | | [address] | [address] | | | | | [place] [address] | | | | | | [phone] | | | +--------+ + + + [...] + | Blood Pressure | 142/87 | 08/01/20181300 PST | + + + + | Pulse | 75 | 08/01/20181300 PST | + + + + | Temperature | 37.2 C (99 F) | 08/01/20181300 PST | + + + + | Respiratory Rate | 16 | 08/01/20181300 PST | + + + + | Oxygen Saturation | 97% | 08/01/20181300 PST | + + + + | Inhaled Oxygen | - | - | | Concentration | | | + + + + | Weight | 79 kg (174 lb 2.6 | 08/01/20181300 PST | | | oz) | | + + + + | Height | 177 cm (5' 9.69") | 08/01/20181300 PST | + + + + | Body Mass Index | 25.22 | 08/01/2018 1301 PST | + + + + in [...] [place] | | | | | | [id number] | | | | | | | [...] this | | EXTERNAL SCAN | | 0000 PST | | procedure are in the | | | | | | results section. | + +--------+ + + + | LABS - EXTERNAL SCAN | | 04/25/2018 | | Results for this | | | | 0000 PDT | | procedure are in the | | | | | | results section. | + +--------+ + + + | PATHOLOGY - EXTERNAL | | 04/15/2009 | | Results for this | | SCAN | | 0000 PDT | | procedure are in the | | | | | | results section. | + +--------+ + + + in this encounter Results CT Treatment Plan Complex (08/08/2018 1143) + + + | Narrative | Performed [...] + + IMAGING REPORT - EXTERNAL SCAN (07/12/2018) + + + | Narrative | Performed At | + + + | Ordered by an | | | unspecified provider. | | + + + LABS - EXTERNAL SCAN (04/25/2018) + + + | Narrative | Performed At | + + + | Ordered by an | | | unspecified provider. | | + + + PATHOLOGY - EXTERNAL SCAN (04/15/2009) + + + | Narrative | Performed At | + + + | Ordered by an | | | unspecified provider. | | + + + in this encounter Visit Diagnoses + + | Diagnosis | + + | Basal cell carcinoma (BCC) of skin of neck - Primary | + +
--- OUTSIDE RECORDS SUMMARY | ~2018-10-05 | XMS | Encounter Summary ---
Demographics + + + | Address | [address] | | | [place] [address] | + + + | Home Phone [...] Author | [facility] | | | and [place] | + + + | Organization | [facility] | | | and [...] [place], [place] | | | | | [address] | | + + + + + | Isabella Merino | ECON | [address] | | | "Tiki" | | [place], [place] | | | | | [address] | | + + + + + Care Team Providers + +------+ + | Care Conveyor System Operator Name | Role | Phone | [...] | | ONCOLOGY CLINIC [address] | [place], [place] | | | | | [address] [place] | [address] | | | | | [place] [address] | | | | | | [phone] | | | +--------+ + + + [...] conclusion of therapy was 6/10 managed by [place] 10/325 one to 2 tablets every 6 [...] DO Radiation Oncologist Department of Radiation Oncology [facility] This note was transcribed using [employer] speech recognition software. As a result, there [...] [place] | | | | | | [id number] | | | | | | | | +--------+ + + + + as of this encounter Visit Diagnoses Not on filein this encounter
--- OUTSIDE RECORDS SUMMARY | ~2018-10-05 | XMS | Encounter Summary ---
Demographics + + + | Address | [address] | | | [place] [address] | + + + | Home Phone | | + + + | Preferred Language | Unknown | + + + | Marital Status | | + + + | Holiness Affiliation | Unknown | + + + | Race | Unknown | + + + | Ethnic Group | Unknown | + + + Author + + + | Author | [facility] | | | and [place] | + + + | Organization | [facility] | | | and [...] [place], [place] | | | | | [address] | | + + + + + | Isabella Merino | ECON | [address] | | | "Tiki" | | [place], [place] | | | | | [address] | | + + + + + Care Team Providers + +------+ + | Care Dredge Captain Name | Role | Phone | + [...] | Services | | Basal cell | Asuh Alvarenga DO | Dominique | | | Required | | carcinoma | [address] | MD Maria Luisa | | | | | (BCC) of | [address] | [address] | | | | | skin of neck | [place], | [place] | | | | | Recurrent | [place] [address] | [place] | | | | | basal cell | Phone: | [address] | | | | | carcinoma | [phone] | Phone: | | | | | | Fax: | [phone] | | | | | | [phone] | Fax: | | | | | | | [phone] | +--------+ + + + + + Reason for Visit + + + | Reason | Comments | + + + | Under Treatment | | + + + Encounter Details +--------+ + + + + | Date | Type | Department | Care Team | Description | +--------+ + + + + | 09/28/ | Hospital | [facility] | Ashu Singh DO | Basal cell carcinoma | | 2019 | Encounter | [facility] | [address] | (BCC) of skin of | | | | ONCOLOGY CLINIC [address] | [place], [place] | neck (Primary Dx); | | | | [facility] | [address] | Recurrent basal cell | | | | [place] [address] | | carcinoma | | | | [phone] | | | +--------+ + + + [...] 6 Pain Quality: Stable Current pain regimen: Virden 10/325 1 tab q 6hours Wt Readings [...] this well with no signific ant pruritus. Virden 10 mg/325mg has been titrated to 1 [...] | | | | | | [place], [place] | | | | | | [address] | | | | | | | | +--------+ + + + + + +--------+ + + | Name | Priori | Associated Diagnoses | Order Schedule | | | ty | | | + +--------+ + + | [facility] | Routin | Basal cell [...]
--- OUTSIDE RECORDS SUMMARY | ~2018-10-05 | XMS | Clinical Summary ---
Demographics + + + | Address | [address] | | | [place] [address] | + + + | Home Phone | | + + + | Preferred Language | Unknown | + + + | Marital Status | | + + + | Jew Affiliation | Unknown | + + + | Race | Unknown | + + + | Ethnic Group | Unknown | + + + Author + + + | Author | [facility] | | | and [place] | + + + | Organization | [facility] | | | and [place] [...] [place], [place] | | | | | [address] | | + + + + + | Isabella Jorge | ECON | [address] | | | "Tiki" | | [place], [place] | | | | | [address] | | + + + + + Care Team Providers + +------+ + | Care Arboriculture Teacher Name | Role | Phone | + +------+ + | Alen Bolanos MD | PP | | + +------+ + Allergies No Known Allergies Current Medications + + + +---------+------+------+-------+ | Prescription | Sig. | Disp. | Refills | Star | End | Statu | | | | | | t | Date | s | | | | | | Date | | | + + + +---------+------+------+-------+ | omeprazole | Take 20 mg by mouth | | | | | Activ | | (PRILOSEC) 20 mg | every morning | | | | | e | | capsule | (before breakfast). | | | | | | + + + +---------+------+------+-------+ | | Take 1 tablet by | | | | | Activ | | lisinopril-hydrochlo | mouth Daily. | | | | | e | | rothiazide | | | | | | | | (PRINZIDE,ZESTORETIC | | | | | | | | ) 10-12.5 MG per | | | | | | | | tablet | | | | | | | + + + +---------+------+------+-------+ | atorvaSTATin | Take 20 mg by mouth | | | | | Activ | | (LIPITOR) 20 mg | nightly. | | | | | e | | tablet | | | | | | | + + + +---------+------+------+-------+ | gabapentin | Take 3 capsules by | 270 | 0 | 03/0 | | Activ | | (NEURONTIN) 300 mg | mouth 3 times daily. | capsule | | 7/20 | | e | | capsuleIndications: | | | | 19 | | | | Recurrent basal cell | | | | | | | | carcinoma | | | | | | | + + + +---------+------+------+-------+ | Docusate Calcium | Take by mouth as | | | | | Activ | | (STOOL SOFTENER PO) | needed. | | | | | e | + + + +---------+------+------+-------+ | | Take 1-2 tablets by | 120 | 0 | 03/2 | | Activ | | HYDROcodone-acetamin | mouth every 6 hours | tablet | | 1/20 | | e | | ophen (NORCO) 10-325 | as needed for Pain. | | | 19 | | | | mg per tablet | | | | | | | + + + +---------+------+------+-------+ | naloxone (NARCAN) | 1 spray by Nasal | 2 each | 0 | 03/2 | | Activ | | 4 mg/nasal spray | route as needed for | | | 20 | | e | | | Decreased | | | 19 | | | | | Responsiveness. | | | | | | + + + +---------+------+------+-------+ | fish oil 1,000 mg | Take 1,000 mg by | | | | 03/1 | Disco | | capsule | mouth Daily. | | | | 4/20 | ntinu | | | | | | | 19 | ed | + + + +---------+------+------+-------+ | | | | 0 | 01/1 | 03/0 | Disco | | HYDROcodone-acetamin | | | | 6/20 | 7/20 | ntinu | | ophen (NORCO) 5-325 | | | | 19 | 19 | ed | | mg per tablet | | | | | | | + + + +---------+------+------+-------+ | levETIRAcetam | take 1 tablet by | | 0 | 11 | /1 | Disco | | (KEPPRA) 500 mg | mouth twice a day | | | 0/20 | 420 | ntinu | | tablet | | | | 18 | 19 | ed | + + + +---------+------+------+-------+ | ondansetron | DIS ONE T PO TID PRN | | 0 | 11/0 | 1 | Disco | | (ZOFRAN ODT) 4 mg | NAUSEA | | | 02/20 | 10/21 | ntinu | | disintegrating | | | | 18 | 19 | ed | | tablet | | | | | | | + + + +---------+------+------+-------+ | SSD 1 % cream | APPLY TO SKIN BID | | 3 | 07/04 | 09/01 | Disco | | | PRN FOR ITCHING | | | 01/20 | 20 | ntinu | | | | | | 19 | 19 | ed | + + + +---------+------+------+-------+ | aspirin 81 mg | Take 81 mg by mouth | | | | 03/2 | Disco | | chewable tablet | Daily. | | | | 8/20 | ntinu | | | | | | | 19 | ed | + + + +---------+------+------+-------+ | gabapentin | Take 2 capsules by | 180 | 0 | 03/0 | 03/0 | Disco | | (NEURONTIN) 300 mg | mouth 3 times daily. | capsule | | 4/20 | 7/20 | ntinu | | capsuleIndications: | | | | 19 | 19 | ed | | Recurrent basal cell | | | | | | | | carcinoma | | | | | | | + + + +---------+------+------+-------+ | | Take 1-2 tablets by | 90 | 0 | 03/0 | 03/2 | Disco | | HYDROcodone-acetamin | mouth every 6 hours | tablet | | 7/20 | 1/20 | ntinu | | ophen (NORCO) 5-325 | as needed for Pain. | | | 19 | 19 | ed | | mg per tablet | | | | | | | + + + +---------+------+------+-------+ Active Problems Not on file Encounters +--------+ + + + + | Date | Type | Specialty | Care Team | Description | +--------+ + + + + | 10/02/ | Hospital | | Ashu Singh DO | Recurrent basal cell | | 2018 | Encounter | | | carcinoma (Primary | | | | | | Dx); Basal cell | | | | | | carcinoma (BCC) of | | | | | | skin of neck | +--------+ + + + + | 10/02/ | Documentati | | Ashu Singh DO | | 2018 | on | | | | +--------+ + + + + | 09/29/ | Telephone | | Ashu Singh DO | Other | | 2018 | | | | | +--------+ + + + + | 09/28/ | Hospital | | Ashu Singh DO | Basal cell carcinoma | | 2018 | Encounter | | | (BCC) of skin of | | | | | | neck (Primary Dx); | | | | | | Recurrent basal cell | | | | | | carcinoma | +--------+ + + + + | 09/21/ | Hospital | | Ashu Singh DO | Basal cell carcinoma | | 2019 | Encounter | | | (BCC) of skin of | | | | | | neck (Primary Dx) | +--------+ + + + + | 09/14/ | Hospital | | Ashu Singh DO | Recurrent basal cell | | 2019 | Encounter | | | carcinoma (Primary | | | | | | Dx) | +--------+ + + + + | 09/07/ | Hospital | | Ashu Singh DO | Recurrent basal cell | | 2019 | Encounter | | | carcinoma (Primary | | | | | | Dx) | +--------+ + + + + | 09/07/ | Refill | | Ashu Singh, DO | Medication Refill | | 2018 | | | | | +--------+ + + + + | 09/06/ | Hospital | | Ashu Singh DO | | | 2018 | Encounter | | | | +--------+ + + + + | 09/04/ | Refill | | Ashu Singh, DO | Medication Refill | | 2018 | | | | | +--------+ + + + + | 08/14/ | Refill | | Ashu Singh, DO | Medication Refill | | 2018 | | | | | +--------+ + + + + | 08/11/ | Telephone | | Ashu Singh DO | Other | | 2018 | | | | | +--------+ + + + + | 08/09/ | Hospital | | Ashu Singh DO | | 2018 | Encounter | | | | +--------+ + + + + | 08/08/ | Hospital | | Ashu Singh DO | | 2018 | Encounter | | | | +--------+ + + + + | 08/08/ | Telephone | | Ashu Singh DO | IDT Note | | 2018 | | | | | +--------+ + + + + | 08/03/ | Telephone | | Ashu Singh DO | Other | | 2018 | | | | | +--------+ + + + + | 08/01/ | Hospital | | Ashu Singh, DO | | | 2018 | Encounter | | | | +--------+ + + + + | 08/01/ | Hospital | | Ashu Singh DO | Basal cell carcinoma | | 2018 | Encounter | | | (BCC) of skin of | | | | | | neck (Primary Dx) | +--------+ + + + + | 07/31/ | Abstract | | Ashu Singh DO | | | 2019 | | | | | +--------+ + + + + | 07/24/ | Ancillary | | Radha, | | | 2018 | Orders | | MD Lluvia | | +--------+ + + + + | 07/12/ | Imaging | | Radha, | | | 2018 | Exam | | MD Lluvia | | +--------+ + + + + from [...] | | | + +------+ + + Social [...] + | Pulse | 65 | 09/28/2018 1049 PDT | + + [...] | 177 cm (5' 9.69") | 08/01/2018 1301 PST | + + + + | Body Mass Index | 26.37 | 09/28/2018 1049 PDT | + + + + Plan of Treatment +--------+ + + + + | Date | Type | Specialty | Care Team | Description | +--------+ + + + + | 01/08/ | Appointment | | Ashu Singh DO | | | 2018 | | | [address] | | | | | | [place] | | | | | | [address] | | | | | | | [...] Vaccine: | | | | | Pneumococcal 19-64 | 3 | | | | (PPSV23 only) Medium | | | | | Risk (1 of 1 - | | | | | PPSV23) | | | | + + [...] Vaccine: Influenza | | | | | (Season Ended) | 9 | | | + + + + + Procedures + +--------+ + + + | [...] section. | + +--------+ + + + from Last [address] Treatment Plan Complex (08/08/2018 1143) [...] | | | + +---------+ + + PET CT Whole Body (07/12/2018 1130) + [...] unspecified provider. | | + + + from Last 3 Months Insurance +---------+--------+ +--------+ +---------+ | Payer | Benefi | Subscriber | Type | Phone | Address | | | t Plan | ID | | | | | | / | | | | | | | Group | | | | | +---------+--------+ +--------+ +---------+ | | TRICAR | [id number] | Indemn | [phone] | | | | [address]ST | | ity | 6500 | | | | HNFS | | | | | +---------+--------+ +--------+ +---------+ + +--------+ +--------+ + + | Guarantor Name | Accoun | Relation to | Date | Phone | Billing Address | | | t Type | Patient | of | | | | | | | | | | + +--------+ +--------+ + + | GUILHERME JORGE | Person | Self [birth year] Home: | [address] | | | howie[place] | | [phone] | [phone] | [place] | | | [place] | | | [phone] | [phone] | + +--------+ +--------+ + +
--- OUTSIDE RECORDS SUMMARY | ~2018-10-05 | XMS | Encounter Summary ---
Demographics + + + | Address | [address] | | | [place] [address] | + + + | Home Phone | | + + + | Preferred Language | Unknown | + + + | Marital Status | | + + + | Yazidi Affiliation | Unknown | + + + | Race | Unknown | + + + | Ethnic Group | Unknown | + + + Author + + + | Author | [facility] | | | and [place] | + + + | Organization | [facility] | | | and [place] | [...] [place], [place] | | | | | [address] | | + + + + + | Isabella Merino | ECON | [address] | | | "Tiki" | | [place], [place] | | | | | [address] | | + + + + + Care Team Providers + +------+ + | Care Waste Salvager Name | Role | Phone | + [...] | MED CTR RADIATION | [address] [facility] | | | | | ONCOLOGY CLINIC [address] | [place] | | | | | [place] | [address] | | | | | [place] [address] | | | | | | [phone] | | | +--------+ + + + [...] [place] | | | | | | [address] | | | | | | | | +--------+ + + + + as of this encounter Visit Diagnoses Not on filein this encounter
--- OUTSIDE RECORDS SUMMARY | ~2018-10-05 | XMS | Encounter Summary ---
Demographics + + + | Address | [address] | | | [place] [address] | + + + | Home Phone | | + + + | Preferred Language | Unknown | + + + | Marital Status | | + + + | Baptism Affiliation | Unknown | + + + | Race | Unknown | + + + | Ethnic Group | Unknown | + + + Author + + + | Author | [facility] | | | and [place] | + + + | Organization | [facility] | | | and [place] [...] [place], [place] | | | | | [address] | | + + + + + | Isabella Merino | ECON | [address] | | | "Tiki" | | [place], [place] | | | | | [address] | | + + + + + Care Team Providers + +------+ + | Care Manager Latin Name | Role | Phone | + [...] | | ONCOLOGY CLINIC [address] | [place], [place] | | | | | [address] [place] | [address] | | | | | [place] [address] | | | | | | [phone] | | | +--------+ + + + [...] [place] | | | | | | [address] | | | | | | | | +--------+ + + + + as of this encounter Visit Diagnoses Not on filein this encounter
--- OUTSIDE RECORDS SUMMARY | ~2018-10-05 | XMS | Encounter Summary ---
Demographics + + + | Address | [address] | | | [place] [address] | + + + | Home Phone | | + + + | Preferred Language | Unknown | + + + | Marital Status | | + + + | Confucianist Affiliation | Unknown | + + + | Race | Unknown | + + + | Ethnic Group | Unknown | + + + Author + + + | Author | [facility] | | | and [place] | + + + | Organization | [facility] | | | and [place] | [...] [place], [place] | | | | | [address] | | + + + + + | Isabella Merino | ECON | [address] | | | "Tiki" | | [place], [place] | | | | | [address] | | + + + + + Care Team Providers + +------+ + | Care Vein Access Technician Name | Role | Phone | [...] + + | 08/11/ | Telephone | [facility] | Ashu Singh DO | Other | | 2019 | | MED CTR MEDICAL | [address] [facility] | | | | | ONCOLOGY CLINIC [address] | [place] | | | | | [facility] | [address] | | | | | [place] [address] | | | | | | [phone] | | | +--------+ + + + [...] [place] | | | | | | [address] | | | | | | | | +--------+ + + + + as of this encounter Visit Diagnoses Not on filein this encounter
--- OUTSIDE RECORDS SUMMARY | ~2018-10-05 | XMS | Encounter Summary ---
Demographics + + + | Address | [address] | | | [place] [address] | + + + | Home Phone [...] | [facility] | | | and [place] | + + + | Organization | [facility] | | | and [place] [...] [place], [place] | | | | | [address] | | + + + + + | Isabella Merino | ECON | [address] | | | "[place]" | | [place], [place] | | | | | [address] | | + + + + + Care Team Providers + +------+ + | Care Nuclear Reactor Technician Name | Role | Phone | [...] cell | Ashu C, DO | [address] | | | | | carcinoma | [address] | [place], | | | | | (BCC) of | [address] | [place] [address] | | | | | skin of neck | [place], | Phone: | | | | | Procedures | [place] [address] | [phone] | | | | | CT | Phone: | Fax: | | | | | Treatment | [phone] | [phone] | | | | | Plan Complex | Fax: | | | | | | CT TX PLAN | [phone] | | +--------+--------+ + + + + [...] | | Consult/Recu | [address] | [place] [address] | | | | | rrent Basel | [place], | Phone: | | | | | Cell/[place] | [place] [address] | [phone] | | | | | soler | Phone: | Fax: | | | | | Procedures | [phone] | [phone] | | | | | HI OFFICE | Fax: | | | | | | OUTPATIENT | [phone] | | | | | | NEW 60 | | | | | | | MINUTES NEW | | | | | | | PATIENT | | | +--------+--------+ + + + + Encounter Details +--------+ + + + + | Date | Type | Department | Care Team | Description | +--------+ + + + + | 08/01/ | Hospital | [facility] | Ashu Singh DO | Basal cell carcinoma | | 2019 | Encounter | MED [facility] | [address] | (BCC) of skin of | | | | ONCOLOGY CLINIC [address] | [place] | neck (Primary Dx) | | | | [address] | [address] | | | | | [place] [address] | | | | | | [phone] | | | +--------+ + + + [...] [place] | | | | | | [id number] | | | | | | | [...]
--- OUTSIDE RECORDS SUMMARY | ~2018-10-05 | XMS | Encounter Summary ---
Demographics + + + | Address | [address] | | | [place] [address] | + + + | Home Phone [...] + | Author | [facility] | | | and [place] | + + + | Organization | [facility] | | | and [...] [place], [place] | | | | | [address] | | + + + + + | Isabella Merino | ECON | [address] | | | "[place]" | | [place], [place] | | | | | [address] | | + + + + + Care Team Providers + +------+ + | Care Merchandising Director Name | Role | Phone | [...] + + | 09/07/ | Hospital | [facility] | Ashu Singh DO | Recurrent basal cell | | 2019 | Encounter | MED CTR RADIATION | [address] | carcinoma (Primary | | | | ONCOLOGY CLINIC [address] | [place] | Dx) | | | | [address] | [address] | | | | | [place] [address] | | | | | | [phone] | | | +--------+ + + + [...] primary lesion which was previously managed with Leopold. I will review and renew th is [...] [place] | | | | | | [id number] | | | | | | | | +--------+ + + + + as of this encounter Visit Diagnoses + + | Diagnosis | + + | Recurrent basal cell carcinoma - Primary | + + | Basal cell carcinoma of skin, site unspecified | + +
--- OUTSIDE RECORDS SUMMARY | ~2018-10-05 | XMS | Encounter Summary ---
Demographics + + + | Address | [address] | | | [place] [address] | + + + | Home Phone [...] | Author | [facility] | | | and [place] | + + + | Organization | [facility] | | | and [...] [place], [place] | | | | | [address] | | + + + + + | Isabella Merino | ECON | [address] | | | "T[place]" | | [place], [place] | | | | | [address] | | + + + + + Care Team Providers + +------+ + | Care Director Of Physician Practices Name | Role | Phone | + [...] + + | 09/21/ | Hospital | [facility] | Ashu Singh DO | Basal cell carcinoma | | 2019 | Encounter | MED CTR RAD[facility]ATION | [address] | (BCC) of skin of | | | | ONCOLOGY CLINIC [address] | [place] | neck (Primary Dx) | | | | [facility] | [address] | | | | | [place] [address] | | | | | | [phone] | | | +--------+ + + + [...] | Blood Pressure | 116/69 | 09/21/2018 1058 PDT | + + + + | Pulse | 66 | 09/21/20181057 PDT | + + + + | Temperature | 37.1 C (98.8 F) | 09/21/20181057 PDT | + + + + | Respiratory Rate | 18 | 09/21/20181057 PDT | + + + + | Oxygen Saturation | 96% | 09/21/20181057 PDT | + + + + | Inhaled Oxygen | - | - | | Concentration | | | + + + + | Weight | 82.6 kg (182 lb 1.6 | 09/21/20181057 PDT | | | oz) | | + + + + | Height | - | - | + + + + | Body Mass Index | 26.37 | 09/21/2018 1058 PDT | + + + + in [...] + as of this encounter Progress Notes AshuDO - 09/21/2018 1056 PDTFormatting of this note may be different [...] 6 Pain Quality: Stable Current pain regimen: [place] 5/325 2 tabs 4 times a day [...] this well with no signific ant pruritus. [place] has been titrated to 2 tabs 4 times a day leading to improved overall p ain control-he is now requesting a refill. I will represcribed [place] at 10 mg/325 mg 1-2 ta b every 6 hours for the duration of treatments. Toxicities reviewed in nursing note. Disposition: Continue radiation treatment as planned. Ashu Singh DO Radiation Oncologist Emmy Vanessa, RN - 09/21/2018 1053 PDTFormatting of this note may be different from sharad corona original. 09/21/18 1052 General Disorders and Administration Site Conditions Fatigue 2 - Grade 2 Performance Status Karnofsky Performance Score 70% Skin on left side of neck remains red states that it oozes at night still but that the drainage is now clear no longer bloody or yellow. States that the Vaseline patches are help ing. in this encounter Plan of Treatment +--------+ + + + + | Date | Type | Specialty | Care Team | Description | +--------+ + + + + | 01/08/ | Appointment | Radiation Oncology | Ashu DO Lyle | | | 2018 | | | [address] | | | | | | [place] | | | | | | [address] | | | | | | | | +--------+ + + + + as of this encounter Visit Diagnoses + + | Diagnosis | + + | Basal cell carcinoma (BCC) of skin of neck - Primary | + +
--- OUTSIDE RECORDS SUMMARY | ~2018-10-05 | XMS | Encounter Summary ---
Demographics + + + | Address | [address] | | | [place] [address] | + + + | Home Phone | | + + + | Preferred Language | Unknown | + + + | Marital Status | | + + + | Presybeterian Affiliation | Unknown | + + + | Race | Unknown | + + + | Ethnic Group | Unknown | + + + Author + + + | Author | [facility] | | | and [place] | + + + | Organization | [facility] | | | and [place] [...] [place], [place] | | | | | [address] | | + + + + + | Isabella Merino | ECON | [address] | | | "Tiki" | | [place], [place] | | | | | [address] | | + + + + + Care Team Providers + +------+ + | Care Forming Roll Operator Name | Role | Phone | [...] | | | | Recurrent | [place] [address] | [place], [place] | | | | | basal cell | Phone: | [address] | | | | | carcinoma | [phone] | Phone: | | | | | | Fax: | [phone] | | | | | | [phone] | Fax: | | | | | | | [phone] | +--------+ + + + + + Reason for Visit + + + | Reason | Comments | + + + | Under Treatment | | + + + Encounter Details +--------+ + + + + | Date | Type | Department | Care Team | Description | +--------+ + + + + | 09/28/ | Hospital | [facility] | Ashu iSngh DO | Basal cell carcinoma | | 2019 | Encounter | MED CTR RADIATION | [address] | (BCC) of skin of | | | | ONCOLOGY CLINIC [address] | [place], [place] | neck (Primary Dx); | | | | [facility] | [address] | Recurrent basal cell | | | | [place] [address] | | carcinoma | | | | [phone] | | | +--------+ + + + [...] 6 Pain Quality: Stable Current pain regimen: [place] 10/325 1 tab q 6hours Wt Readings [...] this well with no signific ant pruritus. [place] 10 mg/325mg has been titrated to 1 [...] | | | | | | [place], [place] | | | | | | [address] | | | | | | | | +--------+ + + + + + +--------+ + + | Name | Priori | Associated Diagnoses | Order Schedule | | | ty | | | + +--------+ + + | [facility] | Routin | Basal cell [...]
--- OUTSIDE RECORDS SUMMARY | ~2018-10-05 | XMS | Encounter Summary ---
Demographics + + + | Address | [address] | | | [place] [address] | + + + | Home Phone [...] Author | [facility] | | | and [place] | + + + | Organization | [facility] | | | and [...] [place], [place] | | | | | [address] | | + + + + + | Isabella Merino | ECON | [address] | | | "Tiki" | | [place], [place] | | | | | [address] | | + + + + + Care Team Providers + +------+ + | Care Hosiery Pairer Name | Role | Phone | + [...] Description | +--------+--------+ + + + | 09/04/ | Refill | [facility] | Ashu Singh DO | Medication Refill | | 2019 | | MED CTR RADIATION | [address] [facility] | | | | | ONCOLOGY CLINIC 401 | [place] | | | | | [place] | [address] | | | | | [place] [address] | | | | | | [phone] | | | +--------+--------+ + + + [...] [place] | | | | | | [address] | | | | | | | | +--------+ + + + + as of this encounter Visit Diagnoses + + | Diagnosis | + + | Recurrent basal cell carcinoma | + + | Basal cell carcinoma of skin, site unspecified | + +
--- OUTSIDE RECORDS SUMMARY | ~2018-10-05 | XMS | Encounter Summary ---
Demographics + + + | Address | [address] | | | [place] [address] | + + + | Home Phone | | + + + | Preferred Language | Unknown | + + + | Marital Status | | + + + | Sikh Affiliation | Unknown | + + + | Race | Unknown | + + + | Ethnic Group | Unknown | + + + Author + + + | Author | [facility] | | | and [place] | + + + | Organization | [facility] | | | and [...] [place], [place] | | | | | [address] | | + + + + + | Isabella Merino | ECON | [address] | | | "Tiki" | | [place], [place] | | | | | [address] | | + + + + + Care Team Providers + +------+ + | Care Assistant Community Manager Name | Role | Phone | [...] + + | 08/03/ | Telephone | [facility] | Ashu Singh DO | Other | | 2019 | | MED CTR MEDICAL | [address] [facility] | | | | | ONCOLOGY CLINIC 401 | [place] | | | | | [facility] | [address] | | | | | [place] [address] | | | | | | [phone] | | | +--------+ + + + [...] [place] | | | | | | [address] | | | | | | | | +--------+ + + + + as of this encounter Visit Diagnoses Not on filein this encounter
--- OUTSIDE RECORDS SUMMARY | ~2018-10-05 | XMS | Encounter Summary ---
Demographics + + + | Address | [address] | | | [place] [address] | + + + | Home Phone | | + + + | Preferred Language | Unknown | + + + | Marital Status | | + + + | Nondenominational Affiliation | Unknown | + + + | Race | Unknown | + + + | Ethnic Group | Unknown | + + + Author + + + | Author | [facility] | | | and [place] | + + + | Organization | [facility] | | [...] [place], [place] | | | | | [address] | | + + + + + | Isabella Merino | ECON | [address] | | | "Tiki" | | [place], [place] | | | | | [address] | | + + + + + Care Team Providers + +------+ + | Care Float Nurse Name | Role | Phone | + [...] cell | Ashu C, DO | [address] | | | | | carcinoma | [address] | [place], | | | | | (BCC) of | [address] | [place] [address] | | | | | skin of neck | [place], | Phone: | | | | | Procedures | [place] [address] | [phone] | | | | | CT | Phone: | Fax: | | | | | Treatment | [phone] | [phone] | | | | | Plan Complex | Fax: | | | | | | CT TX PLAN | [phone] | | +--------+--------+ + + + + [...] | | Consult/Recu | [address] | [place] [address] | | | | | rrent Basel | [place], | Phone: | | | | | Cell/[place] | [place] [address] | [phone] | | | | | soler | Phone: | Fax: | | | | | Procedures | [phone] | [phone] | | | | | [place] OFFICE | Fax: | | | | | | OUTPATIENT | [phone] | | | | | | NEW 60 | | | | | | | MINUTES NEW | | | | | | | PATIENT | | | +--------+--------+ + + + + Encounter Details +--------+ + + + + | Date | Type | Department | Care Team | Description | +--------+ + + + + | 08/01/ | Hospital | [facility] | Ashu Singh DO | Basal cell carcinoma | | 2019 | Encounter | MED CTR RADIATION | [address] | (BCC) of skin of | | | | ONCOLOGY CLINIC [address] | [place] | neck (Primary Dx) | | | | [address] [place] | [address] | | | | | [place] [address] | | | | | | [phone] | | | +--------+ + + + [...] [place] | | | | | | [id number] | | | | | | | [...]
--- OUTSIDE RECORDS SUMMARY | ~2018-10-05 | XMS | Encounter Summary ---
Demographics + + + | Address | [address] | | | [place] [address] | + + + | Home Phone | | + + + | Preferred Language | Unknown | + + + | Marital Status | | + + + | Cheondoism Affiliation | Unknown | + + + | Race | Unknown | + + + | Ethnic Group | Unknown | + + + Author + + + | Author | [facility] | | | and [place] | + + + | Organization | [facility] | | | and [place] [...] [place], [place] | | | | | [address] | | + + + + + | Isabella Merino | ECON | [address] | | | "Tiki" | | [place], [place] | | | | | [address] | | + + + + + Care Team Providers + +------+ + | Care Paper Rewinder Operator Name | Role | Phone | + +------+ + | Alen Bolanos MD | PCP | | + +------+ + Encounter Details +--------+ + + + + | Date | Type | Department | Care Team | Description | +--------+ + + + + | 08/09/ | Hospital | [facility] | Ashu Singh DO | | | 2019 | Encounter | MED CTR RADIATION | [address] | | | | | ONCOLOGY [address] | [place], [place] | | | | | [place], | [address] | | | | | [place] [address] | | | | | | [phone] | | | +--------+ + + + [...] [place] | | | | | | [address] | | | | | | | | +--------+ + + + + as of this encounter Visit Diagnoses Not on filein this encounter
--- OUTSIDE RECORDS SUMMARY | ~2018-10-05 | XMS | Encounter Summary ---
Demographics + + + | Address | [address] | | | [place] [address] | + + + | Home Phone | | + + + | Preferred Language | Unknown | + + + | Marital Status | | + + + | Scientologist Affiliation | Unknown | + + + | Race | Unknown | + + + | Ethnic Group | Unknown | + + + Author + + + | Author | [facility] | | | and [place] | + + + | Organization | [facility] | | | and [place] [...] [place], [place] | | | | | [address] | | + + + + + | Isabella Merino | ECON | [address] | | | "Tiki" | | [place], [place] | | | | | [address] | | + + + + + Care Team Providers + +------+ + | Care Mapping Engineer Name | Role | Phone | [...] + + | 09/14/ | Hospital | [facility] | Ashu Singh DO | Recurrent basal cell | | 2019 | Encounter | MED CTR RADIATION | [address] | carcinoma (Primary | | | | ONCOLOGY CLINIC [address] | [place] | Dx) | | | | [address] | [address] | | | | | [place] [address] | | | | | | [phone] | | | +--------+ + + + [...] | Blood Pressure | 138/69 | 09/14/2018 1104 PDT | + + + + | Pulse | 60 | 09/14/20181103 PDT | + + + + | Temperature | 37.2 C (99 F) | 09/14/20181103 PDT | + + + + | Respiratory Rate | 18 | 09/14/20181103 PDT | + + + + | Oxygen Saturation | 96% | 09/14/20181103 PDT | + + + + | Inhaled Oxygen | - | - | | Concentration | | | + + + + | Weight | 83.5 kg (184 lb 1.4 | 09/14/20181103 PDT | | | oz) | | + + + + | Height | - | - | + + + + | Body Mass Index | 26.65 | 09/14/2018 1104 PDT | + + + + in [...] | + + +---------+---------+ + + | Docusate Calcium | Take [...] | | + + +---------+---------+ + + as of this encounter Progress Notes Ashu Singh DO - 09/14/2018 1220 PDTFormatting of this note may be different [...] 3 Pain Quality: Stable Current pain regimen: [place] 5/325 2 tabs 3 times a day [...] tolerating this well with no significant pruritus. [place] has been titrated to 2 tabs 3 times a day leading to improved overall pain control. Toxicities reviewed in nursing note. Disposition: Continue radiation treatment as planned. Ashu Singh DO Radiation Oncologist Emmy Vanessa, BEATRIZ - 09/14/2018 1118 PDTFormatting of this note may be different from t cj original. 09/14/18 1117 Gastrointestinal Nausea 0 - Grade [...] | 2018 | | | [address] [facility] | | | | | | [place] [...]
--- OUTSIDE RECORDS SUMMARY | ~2018-10-05 | XMS | Encounter Summary ---
Demographics + + + | Address | [address] | | | [place] [address] | + + + | Home Phone | | + + + | Preferred Language | Unknown | + + + | Marital Status | | + + + | Hinduism Affiliation | Unknown | + + + | Race | Unknown | + + + | Ethnic Group | Unknown | + + + Author + + + | Author | [facility] | | | and [place] | + + + | Organization | [facility] | [...] [place], [place] | | | | | [address] | | + + + + + | Isabella Merino | ECON | [address] | | | "Tiki" | | [place], [place] | | | | | [address] | | + + + + + Care Team Providers + +------+ + | Care Picking Table Worker Name | Role | Phone | + +------+ + | Alen Bolanos MD | PCP | | + +------+ + Encounter Details +--------+ + + + + | Date | Type | Department | Care Team | Description | +--------+ + + + + | 08/01/ | Hospital | [facility] | Ashu Singh DO | | | 2019 | Encounter | MED CTR RADIATION | [address] | | | | | ONCOLOGY [address] | [place], [place] | | | | | [place], | [address] | | | | | [place] [address] | | | | | | [phone] | | | +--------+ + + + [...] [place] | | | | | | [address] | | | | | | | | +--------+ + + + + as of this encounter Visit Diagnoses Not on filein this encounter
--- OUTSIDE RECORDS SUMMARY | ~2018-10-05 | XMS | Encounter Summary ---
Demographics + + + | Address | [address] | | | [place] [address] | + + + | Home Phone | | + + + | Preferred Language | Unknown | + + + | Marital Status | | + + + | Scientologist Affiliation | Unknown | + + + | Race | Unknown | + + + | Ethnic Group | Unknown | + + + Author + + + | Author | [facility] | | | and [place] | + + + | Organization | [facility] | | [...] [place], [place] | | | | | [address] | | + + + + + | Isabella Merino | ECON | [address] | | | "Tiki" | | [place], [place] | | | | | [address] | | + + + + + Care Team Providers + +------+ + | Care Jammer Operator Name | Role | Phone | [...] + + | 09/21/ | Hospital | [facility] | Ashu Singh DO | Basal cell carcinoma | | 2019 | Encounter | MED CTR RADIATION | [address] | (BCC) of skin of | | | | ONCOLOGY CLINIC [address] | [place] | neck (Primary Dx) | | | | [facility] | [address] | | | | | [place] [address] | | | | | | [phone] | | | +--------+ + + + [...] 6 Pain Quality: Stable Current pain regimen: [place] 5/325 2 tabs 4 times a day [...] this well with no signific ant pruritus. [place] has been titrated to 2 tabs 4 times a day leading to improved overall p ain control-he is now requesting a refill. I will represcribed [place] at 10 mg/325 mg 1-2 ta b [...] [place] | | | | | | [address] | | | | | | | | +--------+ + + + + as of this encounter Visit Diagnoses + + | Diagnosis | + + | Basal cell carcinoma (BCC) of skin of neck - Primary | + +
--- OUTSIDE RECORDS SUMMARY | ~2018-10-05 | XMS | Encounter Summary ---
Demographics + + + | Address | [address] | | | [place] [address] | + + + | Home Phone | | + + + | Preferred Language | Unknown | + + + | Marital Status | | + + + | Mandaeism Affiliation | Unknown | + + + | Race | Unknown | + + + | Ethnic Group | Unknown | + + + Author + + + | Author | [facility] | | | and [place] | + + + | Organization | [facility] | | | and [...] [place], [place] | | | | | [address] | | + + + + + | Isabella Merino | ECON | [address] | | | "Tiki" | | [place], [place] | | | | | [address] | | + + + + + Care Team Providers + +------+ + | Care Liner Worker Name | Role | Phone | [...] | | ONCOLOGY CLINIC [address] | [place], [place] | | | | | [address] [place] | [address] | | | | | [place] [address] | | | | | | [phone] | | | +--------+ + + + [...] conclusion of therapy was 6/10 managed by [place] 10/325 one to 2 tablets every 6 [...] DO Radiation Oncologist Department of Radiation Oncology [facility] This note was transcribed using [employer] speech recognition software. As a result, there [...] [place] | | | | | | 501202 | | | | | | | | +--------+ + + + + as of this encounter Visit Diagnoses Not on filein this encounter
--- OUTSIDE RECORDS SUMMARY | ~2018-10-05 | XMS | Encounter Summary ---
Demographics + + + | Address | [address] | | | [place] [address] | + + + | Home Phone [...] + | Author | [facility] | | | and [place] | + + + | Organization | [facility] | | | [...] [place], [place] | | | | | [address] | | + + + + + | Isabella Merino | ECON | [address] | | | "Tiki" | | [place], [place] | | | | | [address] | | + + + + + Care Team Providers + +------+ + | Care Patent Attorney Name | Role | Phone | + [...] + + | 09/14/ | Hospital | [facility] | Ashu Singh DO | Recurrent basal cell | | 2019 | Encounter | MED CTR RADIATION | [address] | carcinoma (Primary | | | | ONCOLOGY CLINIC [address] | [place] | Dx) | | | | [address] | [address] | | | | | [place] [address] | | | | | | [phone] | | | +--------+ + + + [...] 3 Pain Quality: Stable Current pain regimen: [place] 5/325 2 tabs 3 times a day [...] tolerating this well with no significant pruritus. [place] has been titrated to 2 tabs 3 [...] | 2018 | | | [address] [facility] | | | | | | [...]
--- OUTSIDE RECORDS SUMMARY | ~2018-10-05 | XMS | Encounter Summary ---
Demographics + + + | Address | [address] | | | [place] [address] | + + + | Home Phone | | + + + | Preferred Language | Unknown | + + + | Marital Status | | + + + | Evangelical Affiliation | Unknown | + + + | Race | Unknown | + + + | Ethnic Group | Unknown | + + + Author + + + | Author | [facility] | | | and [place] | + + + | Organization | [facility] | | | and [place] | + + + | Address | Unknown | + + + | Phone | Unavailable | + + + Support + + + + + | Name | Relationship | Address | Phone | + + + + + | Wilber,Delanee | ECON | [address] | | | | | [place], [place] | | | | | [address] | | + + + + + | Isabella Merino | ECON | [address] | | | "Tiki" | | [place], [place] | | | | | [address] | | + + + + + Care Team Providers + +------+ + | Care Reporting Developer Name | Role | Phone | [...] [place] | | | | | [phone] | [place] [address] | | +--------+ + + + + [...] [place] | | | | | | [address] | | | | | | | [...]
--- OUTSIDE RECORDS SUMMARY | ~2018-10-05 | XMS | Encounter Summary ---
Demographics + + + | Address | [address] | | | [place] [address] | + + + | Home Phone | | + + + | Preferred Language | Unknown | + + + | Marital Status | | + + + | Yazidism Affiliation | Unknown | + + + | Race | Unknown | + + + | Ethnic Group | Unknown | + + + Author + + + | Author | [facility] | | | and [place] | + + + | Organization | [facility] | | | and [...] [place], [place] | | | | | [address] | | + + + + + | Isabella Merino | ECON | [address] | | | "T[place]" | | [place], [place] | | | | | [address] | | + + + + + Care Team Providers + +------+ + | Care Diesel Engine Assembler Name | Role | Phone | [...] | | ONCOLOGY CLINIC [address] | [place], [place] | | | | | [place] | [address] | | | | | [place] [address] | | | | | | [phone] | | | +--------+ + + + [...] conclusion of therapy was 6/10 managed by [place] 10/325 one to 2 tablets every 6 [...] Radiation Oncologist Department of Radiation Oncology [facility] This note was transcribed using Nomesia speech recognition software. As a result, there [...] [place] | | | | | | [id number] | | | | | | | | +--------+ + + + + as of this encounter Visit Diagnoses Not on filein this encounter
--- OUTSIDE RECORDS SUMMARY | ~2018-10-05 | XMS | Encounter Summary ---
Demographics + + + | Address | [address] | | | [place] [address] | + + + | Home Phone | | + + + | Preferred Language | Unknown | + + + | Marital Status | | + + + | Mu-Ism Affiliation | Unknown | + + + | Race | Unknown | + + + | Ethnic Group | Unknown | + + + Author + + + | Author | [facility] | | | and [place] | + + + | Organization | [facility] | | | and [place] [...] [place], [place] | | | | | [address] | | + + + + + | Isabella Merino | ECON | [address] | | | "Tiki" | | [place], [place] | | | | | [address] | | + + + + + Care Team Providers + +------+ + | Care Panel Builder Name | Role | Phone | + +------+ + | Alen Bolanos MD | PCP | | + +------+ + Encounter Details +--------+ + + + + | Date | Type | Department | Care Team | Description | +--------+ + + + + | 09/06/ | Hospital | [facility] | Ashu Singh DO | | | 2019 | Encounter | MED CTR RADIATION | [address] | | | | | ONCOLOGY [address] | [place], [place] | | | | | [place], | [address] | | | | | [place] [address] | | | | | | [phone] | | | +--------+ + + + [...] [place] | | | | | | [address] | | | | | | | | +--------+ + + + + as of this encounter Visit Diagnoses Not on filein this encounter
--- OUTSIDE RECORDS SUMMARY | ~2018-10-05 | XMS | Encounter Summary ---
Demographics + + + | Address | [address] | | | [place] [address] | + + + | Home Phone [...] Author | [facility] | | | and [place] | + + + | Organization | [facility] [...] [place], [place] | | | | | [address] | | + + + + + | Isabella Merino | ECON | [address] | | | "T[place]" | | [place], [place] | | | | | [address] | | + + + + + Care Team Providers + +------+ + | Care Wire Twister Name | Role | Phone | + +------+ + | Alen Bolanos MD | PCP | | + +------+ + Encounter Details +--------+ + + + + | Date | Type | Department | Care Team | Description | +--------+ + + + + | 08/01/ | Hospital | [facility] | Ashu Singh DO | | | 2019 | Encounter | MED CTR RADIATION | [address] | | | | | ONCOLOGY [address] | [place], [place] | | | | | [place], | [address] | | | | | [place] [address] | | | | | | [phone] | | | +--------+ + + + [...] [place] | | | | | | [address] | | | | | | | | +--------+ + + + + as of this encounter Visit Diagnoses Not on filein this encounter
--- OUTSIDE RECORDS SUMMARY | ~2018-10-05 | XMS | Encounter Summary ---
Demographics + + + | Address | [address] | | | [place] [address] | + + + | Home Phone [...] | Author | [facility] | | | and [place] | + + + | Organization | [facility] | | | and [place] [...] [place], [place] | | | | | [address] | | + + + + + | Isabella Merino | ECON | [address] | | | "T[place]" | | [place], [place] | | | | | [address] | | + + + + + Care Team Providers + +------+ + | Care Intervention Analyst Name | Role | Phone | [...] + + | 09/07/ | Refill | [facility] | Ashu Singh DO | Medication Refill | | 2019 | | MED CTR RADIATION | [address] [facility] | | | | | ONCOLOGY CLINIC [address] | [place] | | | | | [place] | [address] | | | | | [place] [address] | | | | | | [phone] | | | +--------+--------+ + + + [...] [place] | | | | | | [address] | | | | | | | [...]
--- OUTSIDE RECORDS SUMMARY | ~2018-10-05 | XMS | Encounter Summary ---
Demographics + + + | Address | [address] | | | [place] [address] | + + + | Home Phone [...] | Author | [facility] | | | and [place] | + + + | Organization | [facility] | | | and [place] [...] [place], [place] | | | | | [address] | | + + + + + | Isabella Merino | ECON | [address] | | | "Tiki" | | [place], [place] | | | | | [address] | | + + + + + Care Team Providers + +------+ + | Care Wedding Makeup Artist Name | Role | Phone | [...] + + | 09/07/ | Hospital | [facility] | Ashu Singh DO | Recurrent basal cell | | 2019 | Encounter | MED CTR RADIATION | [address] | carcinoma (Primary | | | | ONCOLOGY CLINIC [address] | [place] | Dx) | | | | [place] | [address] | | | | | [place] [address] | | | | | | [phone] | | | +--------+ + + + [...] primary lesion which was previously managed with [place]. I will review and renew th is [...] [place] | | | | | | [id number] | | | | | | | | +--------+ + + + + as of this encounter Visit Diagnoses + + | Diagnosis | + + | Recurrent basal cell carcinoma - Primary | + + | Basal cell carcinoma of skin, site unspecified | + +
--- OUTSIDE RECORDS SUMMARY | ~2018-10-05 | XMS | Encounter Summary ---
Demographics + + + | Address | [address] | | | [place] [address] | + + + | Home Phone [...] Author | [facility] | | | and [place] | + + + | Organization | [facility] | [...] [place], [place] | | | | | [address] | | + + + + + | Isabella Merino | ECON | [address] | | | "Tiki" | | [place], [place] | | | | | [address] | | + + + + + Care Team Providers + +------+ + | Care Medical Staff Manager Name | Role | Phone | [...] + + | 09/07/ | Hospital | [facility] | Ashu Singh DO | Recurrent basal cell | | 2019 | Encounter | MED CTR RADIATION | [address] | carcinoma (Primary | | | | ONCOLOGY CLINIC 401 | [place] | Dx) | | | | [place] | [address] | | | | | [place] [address] | | | | | | [phone] | | | +--------+ + + + [...] primary lesion which was previously managed with [place]. I will review and renew th is [...] [place] | | | | | | [id number] | | | | | | | | +--------+ + + + + as of this encounter Visit Diagnoses + + | Diagnosis | + + | Recurrent basal cell carcinoma - Primary | + + | Basal cell carcinoma of skin, site unspecified | + +
--- OUTSIDE RECORDS SUMMARY | ~2018-10-05 | XMS | Encounter Summary ---
Demographics + + + | Address | [address] | | | [place] [address] | + + + | Home Phone [...] Author | [facility] | | | and [place] | + + + | Organization | [facility] | | | and [...] [place], [place] | | | | | [address] | | + + + + + | Isabella Merino | ECON | [address] | | | "Tiki" | | [place], [place] | | | | | [address] | | + + + + + Care Team Providers + +------+ + | Care Admissions Director Name | Role | Phone | [...] + | 08/03/ | Telephone | [facility] | Ashu Singh DO | Other | | 2019 | | MED CTR MEDICAL | [address] [facility] | | | | | ONCOLOGY CLINIC 401 | [place] | | | | | [facility] | [address] | | | | | [place] [address] | | | | | | [phone] | | | +--------+ + + + [...] [place] | | | | | | [address] | | | | | | | | +--------+ + + + + as of this encounter Visit Diagnoses Not on filein this encounter
--- OUTSIDE RECORDS SUMMARY | ~2018-10-05 | XMS | Encounter Summary ---
Demographics + + + | Address | [address] | | | [place] [address] | + + + | Home Phone [...] Author | [facility] | | | and [place] | + + + | Organization | [facility] | | | and [...] [place], [place] | | | | | [address] | | + + + + + | Isabella Merino | ECON | [address] | | | "Tiki" | | [place], [place] | | | | | [address] | | + + + + + Care Team Providers + +------+ + | Care Senior Planner Name | Role | Phone | + [...] + + | 09/04/ | Refill | [facility] | Ashu Singh DO | Medication Refill | | 2019 | | MED CTR RADIATION | [address] [facility] | | | | | ONCOLOGY CLINIC 401 | [place] | | | | | [place] | [address] | | | | | [place] [address] | | | | | | [phone] | | | +--------+--------+ + + + [...] [place] | | | | | | [address] | | | | | | | | +--------+ + + + + as of this encounter Visit Diagnoses + + | Diagnosis | + + | Recurrent basal cell carcinoma | + + | Basal cell carcinoma of skin, site unspecified | + +
--- OUTSIDE RECORDS SUMMARY | ~2018-10-05 | XMS | Encounter Summary ---
Demographics + + + | Address | [address] | | | [place] [address] | + + + | Home Phone | | + + + | Preferred Language | Unknown | + + + | Marital Status | | + + + | Moravian Affiliation | Unknown | + + + | Race | Unknown | + + + | Ethnic Group | Unknown | + + + Author + + + | Author | [facility] | | | and [place] | + + + | Organization | [facility] | | | and [...] [place], [place] | | | | | [address] | | + + + + + | Isabella Merino | ECON | [address] | | | "Tiki" | | [place], [place] | | | | | [address] | | + + + + + Care Team Providers + +------+ + | Care Senior Data Quality Analyst Name | Role | Phone | [...] | | | | carcinoma | [place] [address] | [place], [place] | | | | | (BCC) of | Phone: | [phone] | | | | | skin of neck | [phone] | Phone: | | | | | | Fax: | [phone] | | | | | | [phone] | Fax: | | | | | | | [phone] | +--------+ + + + + + Encounter Details +--------+ + + + + | Date | Type | Department | Care Team | Description | +--------+ + + + + | 10/02/ | Hospital | [facility] | Ashu Singh DO | Recurrent basal cell | | 2019 | Encounter | [facility] RAD[facility] | [address] | carcinoma (Primary | | | | ONCOLOGY CLINIC 401 | [place], [place] | Dx); Basal cell | | | | [place] | [address] | carcinoma (BCC) of | | | | [place] [address] | | skin of neck | | | | [phone] | | | +--------+ + + + [...] | Appointment | Radiation Oncology | Ashu iSngh DO | | | 2018 | | | [address] | | | | | | [place] | | | | | | [address] | | | | | | | [...]
--- OUTSIDE RECORDS SUMMARY | ~2018-10-05 | XMS | Encounter Summary ---
Demographics + + + | Address | [address] | | | [place] [address] | + + + | Home Phone [...] | Author | [facility] | | | and [place] | + + + | Organization | [facility] | | | and [...] [place], [place] | | | | | [address] | | + + + + + | Isabella Merino | ECON | [address] | | | "Tiki" | | [place], [place] | | | | | [address] | | + + + + + Care Team Providers + +------+ + | Care Pin Ticket Machine Operator Name | Role | Phone | + +------+ + | Alen Bolanos MD | PCP | | + +------+ + Encounter Details +--------+ + + + + | Date | Type | Department | Care Team | Description | +--------+ + + + + | 08/01/ | Hospital | [facility] | Ashu Singh DO | | | 2019 | Encounter | MED CTR RADIATION | [address] | | | | | ONCOLOGY [address] W | [place], [place] | | | | | [place], | [address] | | | | | [place] [address] | | | | | | [phone] | | | +--------+ + + + [...] [place] | | | | | | [address] | | | | | | | | +--------+ + + + + as of this encounter Visit Diagnoses Not on filein this encounter
--- OUTSIDE RECORDS SUMMARY | ~2018-10-05 | XMS | Encounter Summary ---
Demographics + + + | Address | [address] | | | [place] [address] | + + + | Home Phone [...] | Author | [facility] | | | and [place] | + + + | Organization | [facility] | | | and [...] [place], [place] | | | | | [address] | | + + + + + | Isabella Merino | ECON | [address] | | | "Tiki" | | [place], [place] | | | | | [address] | | + + + + + Care Team Providers + +------+ + | Care House Piping Inspector Name | Role | Phone | [...] + + | 08/14/ | Refill | [facility] | Ashu Singh DO | Medication Refill | | 2019 | | MED CTR MEDICAL | [address] [facility] | | | | | ONCOLOGY CLINIC 401 | [place] | | | | | [place] | [address] | | | | | [place] [address] | | | | | | [phone] | | | +--------+--------+ + + + [...] [place] | | | | | | [address] | | | | | | | | +--------+ + + + + as of this encounter Visit Diagnoses + + | Diagnosis | + + | Recurrent basal cell carcinoma - Primary | + + | Basal cell carcinoma of skin, site unspecified | + +
--- OUTSIDE RECORDS SUMMARY | ~2018-10-05 | XMS | Clinical Summary ---
Demographics + + + | Address | [address] | | | [place] [address] | + + + | Home Phone | | + + + | Preferred Language | Unknown | + + + | Marital Status | | + + + | Orthodox Affiliation | Unknown | + + + | Race | Unknown | + + + | Ethnic Group | Unknown | + + + Author + + + | Author | [facility] | | | and [place] | + + + | Organization | [facility] | | | and [place] [...] [place], [place] | | | | | [address] | | + + + + + | Isabella Jorge | ECON | [address] | | | "Tiki" | | [place], [place] | | | | | [address] | | + + + + + Care Team Providers + +------+ + | Care Detector Car Operator Name | Role | Phone | [...] [place] | | | | | | [address] | | | | | | | [...] +---------+--------+ +--------+ +---------+ | | TRICAR | [id number] | Indemn | [phone] | | [...] | fransisca | | | [phone] | [address] | + +--------+ +--------+ + +
--- OUTSIDE RECORDS SUMMARY | ~2018-10-05 | XMS | Encounter Summary ---
Demographics + + + | Address | [address] | | | [place] [address] | + + + | Home Phone | | + + + | Preferred Language | Unknown | + + + | Marital Status | | + + + | Adventism Affiliation | Unknown | + + + | Race | Unknown | + + + | Ethnic Group | Unknown | + + + Author + + + | Author | [facility] | | | and [place] | + + + | Organization | [facility] | | | and [...] [place], [place] | | | | | [address] | | + + + + + | Isabella Merino | ECON | [address] | | | "Tiki" | | [place], [place] | | | | | [address] | | + + + + + Care Team Providers + +------+ + | Care Psychiatric Mental Health Nurse Name | Role | Phone | + +------+ + | Alen oBlanos MD | PCP | | + +------+ + Reason for Visit + + + | Reason | Comments | + + + | Medication Refill | | + + + Encounter Details +--------+--------+ + + + | Date | Type | Department | Care Team | Description | +--------+--------+ + + + | 09/07/ | Refill | [facility] | Ashu Singh DO | Medication Refill | | 2019 | | MED CTR RADIATION | [address] [facility] | | | | | ONCOLOGY CLINIC 401 | [place] | | | | | [address] [place] | [address] | | | | | [place] [address] | | | | | | [phone] | | | +--------+--------+ + + + [...] [place] | | | | | | [address] | | | | | | | [...]
--- OUTSIDE RECORDS SUMMARY | ~2018-10-05 | XMS | Encounter Summary ---
Demographics + + + | Address | [address] | | | [place] [address] | + + + | Home Phone [...] | Author | [facility] | | | and [place] | + + + | Organization | [facility] | | | [...] [place], [place] | | | | | [address] | | + + + + + | Isabella Merino | ECON | [address] | | | "T[place]" | | [place], [place] | | | | | [address] | | + + + + + Care Team Providers + +------+ + | Care Cloth Burler Name | Role | Phone | + [...] | 09/04/ | Refill | [facility] | Ashu Singh DO | Medication Refill | | 2019 | | MED CTR RADIATION | [address] [facility] | | | | | ONCOLOGY CLINIC 401 | [place] | | | | | [place] | [address] | | | | | [place] [address] | | | | | | [phone] | | | +--------+--------+ + + + [...] [place] | | | | | | [address] | | | | | | | | +--------+ + + + + as of this encounter Visit Diagnoses + + | Diagnosis | + + | Recurrent basal cell carcinoma | + + | Basal cell carcinoma of skin, site unspecified | + +
--- OUTSIDE RECORDS SUMMARY | ~2018-10-05 | XMS | Encounter Summary ---
Demographics + + + | Address | [address] | | | [place] [address] | + + + | Home Phone | | + + + | Preferred Language | Unknown | + + + | Marital Status | | + + + | Sabianist Affiliation | Unknown | + + + | Race | Unknown | + + + | Ethnic Group | Unknown | + + + Author + + + | Author | [facility] | | | and [place] | + + + | Organization | [facility] | | | and [place] [...] [place], [place] | | | | | [address] | | + + + + + | Isabella Merino | ECON | [address] | | | "Tiki" | | [place], [place] | | | | | [address] | | + + + + + Care Team Providers + +------+ + | Care Repair Operator Name | Role | Phone | [...] + + | 09/21/ | Hospital | [facility] | Ashu Singh DO | Basal cell carcinoma | | 2019 | Encounter | MED CTR RADIATION | [address] | (BCC) of skin of | | | | ONCOLOGY CLINIC [address] | [place] | neck (Primary Dx) | | | | W [facility] | [address] | | | | | [place] [address] | | | | | | [phone] | | | +--------+ + + + [...] 6 Pain Quality: Stable Current pain regimen: Bayamon 5/325 2 tabs 4 times a day [...] this well with no signific ant pruritus. Bayamon has been titrated to 2 tabs 4 times a day leading to improved overall p ain control-he is now requesting a refill. I will represcribed Bayamon at 10 mg/325 mg 1-2 ta b [...] [place] | | | | | | [address] | | | | | | | | +--------+ + + + + as of this encounter Visit Diagnoses + + | Diagnosis | + + | Basal cell carcinoma (BCC) of skin of neck - Primary | + +
--- OUTSIDE RECORDS SUMMARY | ~2018-10-05 | XMS | Encounter Summary ---
Demographics + + + | Address | [address] | | | [place] [address] | + + + | Home Phone | | + + + | Preferred Language | Unknown | + + + | Marital Status | | + + + | Buddhism Affiliation | Unknown | + + + | Race | Unknown | + + + | Ethnic Group | Unknown | + + + Author + + + | Author | [facility] | | | and [place] | + + + | Organization | [facility] | | [...] [place], [place] | | | | | [address] | | + + + + + | Isabella Merino | ECON | [address] | | | "Tiki" | | [place], [place] | | | | | [address] | | + + + + + Care Team Providers + +------+ + | Care Nut Sheller Machine Operator Name | Role | Phone [...] + | 08/08/ | Telephone | [facility] | Ashu Singh DO | IDT Note | | 2019 | | MED CTR RADIATION | [address] [facility] | | | | | ONCOLOGY CLINIC 401 | [place] | | | | | [address] [place] | [address] | | | | | [place] [address] | | | | | | [phone] | | | +--------+ + + + [...] [place] | | | | | | [address] | | | | | | | | +--------+ + + + + as of this encounter Visit Diagnoses Not on filein this encounter
--- OUTSIDE RECORDS SUMMARY | ~2018-10-05 | XMS | Encounter Summary ---
Demographics + + + | Address | [address] | | | [place] [address] | + + + | Home Phone | | + + + | Preferred Language | Unknown | + + + | Marital Status | | + + + | Restoration Affiliation | Unknown | + + + | Race | Unknown | + + + | Ethnic Group | Unknown | + + + Author + + + | Author | [facility] | | | and [place] | + + + | Organization | [facility] | | | and [place] [...] [place], [place] | | | | | [address] | | + + + + + | Isabella Merino | ECON | [address] | | | "Tiki" | | [place], [place] | | | | | [address] | | + + + + + Care Team Providers + +------+ + | Care Urology Surgeon Name | Role | Phone | + [...] | | | | Recurrent | [place] [address] | [place] | | | | | basal cell | Phone: | [address] | | | | | carcinoma | [phone] | Phone: | | | | | | Fax: | [phone] | | | | | | [phone] | Fax: | | | | | | | [phone] | +--------+ + + + + + Reason for Visit + + + | Reason | Comments | + + + | Under Treatment | | + + + Encounter Details +--------+ + + + + | Date | Type | Department | Care Team | Description | +--------+ + + + + | 09/28/ | Hospital | [facility] | Ashu Singh DO | Basal cell carcinoma | | 2019 | Encounter | MED CTR RADIATION | [address] | (BCC) of skin of | | | | ONCOLOGY CLINIC 401 | [place], [place] | neck (Primary Dx); | | | | [facility] | [address] | Recurrent basal cell | | | | [place] [address] | | carcinoma | | | | [phone] | | | +--------+ + + + [...] 6 Pain Quality: Stable Current pain regimen: Lillian 10/325 1 tab q 6hours Wt Readings [...] this well with no signific ant pruritus. Lillian 10 mg/325mg has been titrated to 1 [...] | | | | | | [place], [place] | | | | | | [address] | | | | | | | | +--------+ + + + + + +--------+ + + | Name | Priori | Associated Diagnoses | Order Schedule | | | ty | | | + +--------+ + + | [facility] | Routin | Basal cell [...]
--- OUTSIDE RECORDS SUMMARY | ~2018-10-05 | XMS | Encounter Summary ---
Demographics + + + | Address | [address] | | | [place] [address] | + + + | Home Phone [...] | Author | [facility] | | | and [place] | + + + | Organization | [facility] | | | and [...] [place], [place] | | | | | [address] | | + + + + + | Isabella Merino | ECON | [address] | | | "Tiki" | | [place], [place] | | | | | [address] | | + + + + + Care Team Providers + +------+ + | Care Still Operator Brandy Name | Role | Phone | + [...] [place] | | | | | [phone] | [place] [address] | | +--------+ + + + + [...] [place] | | | | | | [address] | | | | | | | [...]
--- OUTSIDE RECORDS SUMMARY | ~2018-10-05 | XMS | Encounter Summary ---
Demographics + + + | Address | [address] | | | [place] [address] | + + + | Home Phone | | + + + | Preferred Language | Unknown | + + + | Marital Status | | + + + | Sikhism Affiliation | Unknown | + + + | Race | Unknown | + + + | Ethnic Group | Unknown | + + + Author + + + | Author | [facility] | | | and [place] | + + + | Organization | [facility] | | | and [...] [place], [place] | | | | | [address] | | + + + + + | Isabella Merino | ECON | [address] | | | "[place]" | | [place], [place] | | | | | [address] | | + + + + + Care Team Providers + +------+ + | Care Body Work Auto Trimmer Name | Role | Phone | + [...] + | 08/11/ | Telephone | [facility] | Ashu Singh DO | Other | | 2019 | | MED CTR MEDICAL | [address] [facility] | | | | | ONCOLOGY CLINIC 401 | [place] | | | | | [facility] | [address] | | | | | [place] [address] | | | | | | [phone] | | | +--------+ + + + [...] [place] | | | | | | [address] | | | | | | | | +--------+ + + + + as of this encounter Visit Diagnoses Not on filein this encounter
--- OUTSIDE RECORDS SUMMARY | ~2018-10-05 | XMS | Encounter Summary ---
Demographics + + + | Address | [address] | | | [place] [address] | + + + | Home Phone [...] + + | Author | [facility] | | | and [place] | + + + | Organization | [facility] | | | and [place] [...] [place], [place] | | | | | [address] | | + + + + + | Isabella Merino | ECON | [address] | | | "Tiki" | | [place], [place] | | | | | [address] | | + + + + + Care Team Providers + +------+ + | Care Knife Cutter Name | Role | Phone | + [...] + | 08/08/ | Telephone | [facility] | Ashu Singh DO | IDT Note | | 2019 | | MED CTR RADIATION | [address] [facility] | | | | | ONCOLOGY CLINIC 401 | [place] | | | | | [address] [place] | [address] | | | | | [place] [address] | | | | | | [phone] | | | +--------+ + + + [...] [place] | | | | | | [address] | | | | | | | | +--------+ + + + + as of this encounter Visit Diagnoses Not on filein this encounter
--- OUTSIDE RECORDS SUMMARY | ~2018-10-05 | XMS | Encounter Summary ---
Demographics + + + | Address | [address] | | | [place] [address] | + + + | Home Phone [...] Author | [facility] | | | and [place] | + + + | Organization | [facility] | | | and [place] [...] [place], [place] | | | | | [address] | | + + + + + | Isabella Merino | ECON | [address] | | | "Tiki" | | [place], [place] | | | | | [address] | | + + + + + Care Team Providers + +------+ + | Care Corporate Administrative Assistant Name | Role | Phone | [...] | | | | carcinoma | [place] [address] | [place], [place] | | | | | (BCC) of | Phone: | [address] | | | | | skin of neck | [phone] | Phone: | | | | | | Fax: | [phone] | | | | | | [phone] | Fax: | | | | | | | [phone] | +--------+ + + + + + Encounter Details +--------+ + + + + | Date | Type | Department | Care Team | Description | +--------+ + + + + | 10/02/ | Hospital | [facility] | Ashu Singh DO | Recurrent basal cell | | 2019 | Encounter | MED CTR RADIATION | [address] | carcinoma (Primary | | | | ONCOLOGY CLINIC 401 | [place], [place] | Dx); Basal cell | | | | [place] | [address] | carcinoma (BCC) of | | | | [place] [address] | | skin of neck | | | | [phone] | | | +--------+ + + + [...] [place] | | | | | | [address] | | | | | | | [...]
--- OUTSIDE RECORDS SUMMARY | ~2018-10-05 | XMS | Encounter Summary ---
Demographics + + + | Address | [address] | | | [place] [address] | + + + | Home Phone [...] | Author | [facility] | | | and [place] | + + + | Organization | [facility] | | | and [...] [place], [place] | | | | | [address] | | + + + + + | Isabella Merino | ECON | [address] | | | "Tiki" | | [place], [place] | | | | | [address] | | + + + + + Care Team Providers + +------+ + | Care Facility Environmental Technician Name | Role | Phone | [...] Yesenia DALAL | | | | | [phone] | [place] [address] | | +--------+ + + + + [...] [place] | | | | | | [address] | | | | | | | [...]
--- OUTSIDE RECORDS SUMMARY | ~2018-10-05 | XMS | Encounter Summary ---
Demographics + + + | Address | [address] | | | [place] [address] | + + + | Home Phone | | + + + | Preferred Language | Unknown | + + + | Marital Status | | + + + | Roman Catholic Affiliation | Unknown | + + + | Race | Unknown | + + + | Ethnic Group | Unknown | + + + Author + + + | Author | [facility] | | | and [place] | + + + | Organization | [facility] | | | and [place] [...] [place], [place] | | | | | [address] | | + + + + + | Isabella Merino | ECON | [address] | | | "Tiki" | | [place], [place] | | | | | [address] | | + + + + + Care Team Providers + +------+ + | Care Car Wash Attendant Automatic Name | Role | Phone | + [...] + + | 09/14/ | Hospital | [facility] | Ashu Singh DO | Recurrent basal cell | | 2019 | Encounter | MED CTR RADIATION | [address] | carcinoma (Primary | | | | ONCOLOGY CLINIC [address] | [place] | Dx) | | | | [address] [place] | [address] | | | | | [place] [address] | | | | | | [phone] | | | +--------+ + + + [...] 3 Pain Quality: Stable Current pain regimen: [place] 5/325 2 tabs 3 times a day [...] tolerating this well with no significant pruritus. [place] has been titrated to 2 tabs 3 [...] | 2018 | | | [address] [facility] [...]
--- OUTSIDE RECORDS SUMMARY | ~2018-10-05 | XMS | Encounter Summary ---
Demographics + + + | Address | [address] | | | [place] [address] | + + + | Home Phone [...] | Author | [facility] | | | and [place] | + + + | Organization | [facility] [...] [place], [place] | | | | | [address] | | + + + + + | Isabella Merino | ECON | [address] | | | "Tiki" | | [place], [place] | | | | | [address] | | + + + + + Care Team Providers + +------+ + | Care Trauma Nurse Name | Role | Phone | [...] | ONCOLOGY CLINIC [address] | [place] | | | | | [place] | [address] | | | | | [place] [address] | | | | | | [phone] | | | +--------+ + + + [...] [place] | | | | | | [address] | | | | | | | | +--------+ + + + + as of this encounter Visit Diagnoses Not on filein this encounter
--- OUTSIDE RECORDS SUMMARY | ~2018-10-05 | XMS | Encounter Summary ---
Demographics + + + | Address | [address] | | | [place] [address] | + + + | Home Phone [...] Author | [facility] | | | and [place] | + + + | Organization | [facility] | | | and [...] [place], [place] | | | | | [address] | | + + + + + | Isabella Merino | ECON | [address] | | | "Tiki" | | [place], [place] | | | | | [address] | | + + + + + Care Team Providers + +------+ + | Care Die Turner Name | Role | Phone | + [...] + | 08/11/ | Telephone | [facility] | Ashu Singh DO | Other | | 2019 | | MED CTR MEDICAL | [address] [facility] | | | | | ONCOLOGY CLINIC 401 | [place] | | | | | [address] [facility] | [address] | | | | | [place] [address] | | | | | | [phone] | | | +--------+ + + + [...] [place] | | | | | | [address] | | | | | | | | +--------+ + + + + as of this encounter Visit Diagnoses Not on filein this encounter
--- OUTSIDE RECORDS SUMMARY | ~2018-10-05 | XMS | Clinical Summary ---
Demographics + + + | Address | [address] | | | [place] [address] | + + + | Home Phone | | + + + | Preferred Language | Unknown | + + + | Marital Status | | + + + | Faith Affiliation | Unknown | + + + | Race | Unknown | + + + | Ethnic Group | Unknown | + + + Author + + + | Author | [facility] | | | and [place] | + + + | Organization | [facility] | | | and [...] [place], [place] | | | | | [address] | | + + + + + | Isabella Jorge | ECON | [address] | | | "Tiki" | | [place], [place] | | | | | [address] | | + + + + + Care Team Providers + +------+ + | Care Merchandise Handler Name | Role | Phone | + [...] [place] | | | | | | [address] | | | | | | | [...] +---------+--------+ +--------+ +---------+ | | TRICAR | [phone] | Indemn | [phone] | | [...] | [place] | | | [phone] | [phone] | + +--------+ +--------+ + +
--- OUTSIDE RECORDS SUMMARY | ~2018-10-05 | XMS | Encounter Summary ---
Demographics + + + | Address | [address] | | | [place] [address] | + + + | Home Phone [...] Author | [facility] | | | and [place] | + + + | Organization | [facility] | | | and [...] [place], [place] | | | | | [address] | | + + + + + | Isabella Merino | ECON | [address] | | | "T[place]" | | [place], [place] | | | | | [address] | | + + + + + Care Team Providers + +------+ + | Care Research Tech Name | Role | Phone | [...] | | ONCOLOGY CLINIC [address] | [place], [place] | | | | | [address] | [address] | | | | | [place] [address] | | | | | | [phone] | | | +--------+ + + + [...] [place] | | | | | | [address] | | | | | | | | +--------+ + + + + as of this encounter Visit Diagnoses Not on filein this encounter
--- OUTSIDE RECORDS SUMMARY | ~2018-10-05 | XMS | Clinical Summary ---
Demographics + + + | Address | [address] | | | [place] [address] | + + + | Home Phone [...] [place] | | | | | [address] | | + + + + + Care Team Providers + +------+ + | Care Payroll And Benefits Assistant Name | Role | Phone | + +------+ + | Alen Bolanos MD | PP | | + +------+ + Source Comments KRISTI is fully live on both [facility] and [facility] Allergies No Known Allergies Current Medications [...] | PPO | +1- | [address] [address] [place] | | | [place] | | | [address] | [place] [address] | | | [place] | | | | | | | L | | | | | + +--------+ +------+ + + | [facility] | UNITED | [phone] | PPO [...] | [place] | | | [phone] | [phone] | + +--------+ +--------+ + +"
--- OUTSIDE RECORDS SUMMARY | ~2018-10-05 | XMS | Encounter Summary ---
Demographics + + + | Address | [address] | | | [place] [address] | + + + | Home Phone [...] Author | [facility] | | | and [place] | + + + | Organization | [facility] | | | and [...] [place], [place] | | | | | [address] | | + + + + + | Isabella Merino | ECON | [address] | | | "[place]" | | [place], [place] | | | | | [address] | | + + + + + Care Team Providers + +------+ + | Care Ell Tutor Name | Role | Phone | [...] + + | 09/07/ | Refill | [facility] | Ashu Singh DO | Medication Refill | | 2019 | | MED CTR RADIATION | [address] [facility] | | | | | ONCOLOGY CLINIC [address] | [place] | | | | | [place] | [address] | | | | | [place] [address] | | | | | | [phone] | | | +--------+--------+ + + + [...] [place] | | | | | | [address] | | | | | | | [...]
--- OUTSIDE RECORDS SUMMARY | ~2018-10-05 | XMS | Encounter Summary ---
Demographics + + + | Address | [address] | | | [place] [address] | + + + | Home Phone | | + + + | Preferred Language | Unknown | + + + | Marital Status | | + + + | Taoism Affiliation | Unknown | + + + | Race | Unknown | + + + | Ethnic Group | Unknown | + + + Author + + + | Author | [facility] | | | and [place] | + + + | Organization | [facility] | | | and [place] [...] [place], [place] | | | | | [address] | | + + + + + | Isabella Merino | ECON | [address] | | | "T[place]" | | [place], [place] | | | | | [address] | | + + + + + Care Team Providers + +------+ + | Care Host/Hostess Head Name | Role | Phone | + +------+ + | Alen Bolanos MD | PCP | | + +------+ + Encounter Details +--------+ + + + + | Date | Type | Department | Care Team | Description | +--------+ + + + + | 08/09/ | Hospital | [facility] | Ashu Singh DO | | | 2019 | Encounter | MED CTR RADIATION | [address] | | | | | ONCOLOGY [address] | [place], [place] | | | | | [place], | [address] | | | | | [place] [address] | | | | | | [phone] | | | +--------+ + + + [...] [place] | | | | | | [address] | | | | | | | | +--------+ + + + + as of this encounter Visit Diagnoses Not on filein this encounter
--- OUTSIDE RECORDS SUMMARY | ~2018-10-05 | XMS | Encounter Summary ---
Demographics + + + | Address | [address] | | | [place] [address] | + + + | Home Phone | | + + + | Preferred Language | Unknown | + + + | Marital Status | | + + + | Episcopalian Affiliation | Unknown | + + + | Race | Unknown | + + + | Ethnic Group | Unknown | + + + Author + + + | Author | [facility] | | | and [place] | + + + | Organization | [facility] | | | and [...] [place], [place] | | | | | [address] | | + + + + + | Isabella Merino | ECON | [address] | | | "[place]" | | [place], [place] | | | | | [address] | | + + + + + Care Team Providers + +------+ + | Care Aeronautical Test Engineer Name | Role | Phone | [...] + + | 08/14/ | Refill | [facility] | Ashu Singh DO | Medication Refill | | 2019 | | MED CTR MEDICAL | [address] [facility] | | | | | ONCOLOGY CLINIC [address] | [place] | | | | | [address] [place] | [address] | | | | | [place] [address] | | | | | | [phone] | | | +--------+--------+ + + + [...] [place] | | | | | | [address] | | | | | | | | +--------+ + + + + as of this encounter Visit Diagnoses + + | Diagnosis | + + | Recurrent basal cell carcinoma - Primary | + + | Basal cell carcinoma of skin, site unspecified | + +
--- OUTSIDE RECORDS SUMMARY | ~2018-10-05 | XMS | Encounter Summary ---
Demographics + + + | Address | [address] | | | [place] [address] | + + + | Home Phone [...] Author | [facility] | | | and [place] | + + + | Organization | [facility] | | | and [place] [...] [place], [place] | | | | | [address] | | + + + + + | Isabella Merino | ECON | [address] | | | "T[place]" | | [place], [place] | | | | | [address] | | + + + + + Care Team Providers + +------+ + | Care Associate Merchandise Planner Name | Role | Phone | [...] Yesenia DALAL | | | | | [phone] | [place] [address] | | +--------+ + + + + [...] [place] | | | | | | [address] | | | | | | | [...]
--- OUTSIDE RECORDS SUMMARY | ~2018-10-05 | XMS | Encounter Summary ---
Demographics + + + | Address | [address] | | | [place] [address] | + + + | Home Phone [...] [facility] | | | and [place] | + + + | Organization | [facility] | | | and [place] [...] [place], [place] | | | | | [address] | | + + + + + | Isabella Merino | ECON | [address] | | | "T[place]" | | [place], [place] | | | | | [address] | | + + + + + Care Team Providers + +------+ + | Care Kaiako Kohanga Reo Name | Role | Phone | + [...] + + | 08/08/ | Hospital | [facility] | Ashu Singh DO | | | 2019 | Encounter | [address] | [address] | | | | | [place], | [place] | | | | | [place] [address] | [address] | | | | | [phone] | | | +--------+ + + + [...] [place] | | | | | | [address] | | | | | | | [...]
--- OUTSIDE RECORDS SUMMARY | ~2018-10-05 | XMS | Encounter Summary ---
Demographics + + + | Address | [address] | | | [place] [address] | + + + | Home Phone | | + + + | Preferred Language | Unknown | + + + | Marital Status | | + + + | Alevism Affiliation | Unknown | + + + | Race | Unknown | + + + | Ethnic Group | Unknown | + + + Author + + + | Author | [facility] | | | and [place] | + + + | Organization | [facility] | | [...] [place], [place] | | | | | [address] | | + + + + + | Isabella Merino | ECON | [address] | | | "T[place]" | | [place], [place] | | | | | [address] | | + + + + + Care Team Providers + +------+ + | Care Piercer Name | Role | Phone | + [...] + | 08/03/ | Telephone | [facility] | Ashu Singh DO | Other | | 2019 | | MED CTR MEDICAL | [address] [facility] | | | | | ONCOLOGY CLINIC 401 | [place] | | | | | [address] [facility] | [address] | | | | | [place] [address] | | | | | | [phone] | | | +--------+ + + + [...] [place] | | | | | | [address] | | | | | | | | +--------+ + + + + as of this encounter Visit Diagnoses Not on filein this encounter
--- OUTSIDE RECORDS SUMMARY | ~2018-10-05 | XMS | Encounter Summary ---
Demographics + + + | Address | [address] | | | [place] [address] [...] | Author | [facility] | | | and [place] | + + + | Organization | [facility] | | | and [...] [place], [place] | | | | | [address] | | + + + + + | Isabella Merino | ECON | [address] | | | "[place]" | | [place], [place] | | | | | [address] | | + + + + + Care Team Providers + +------+ + | Care Jewelry Mold Maker Name | Role | Phone | + +------+ + | Alen Bolanos MD | PCP | | + +------+ + Encounter Details +--------+ + + + + | Date | Type | Department | Care Team | Description | +--------+ + + + + | 08/09/ | Hospital | [facility] | Ashu Singh DO | | | 2019 | Encounter | MED CTR RADIATION | [address] | | | | | ONCOLOGY [address] | [place], [place] | | | | | [place], | [address] | | | | | [place] [address] | | | | | | [phone] | | | +--------+ + + + [...] [place] | | | | | | [address] | | | | | | | | +--------+ + + + + as of this encounter Visit Diagnoses Not on filein this encounter
[~2018-10-05 20:06] MED LIST changes: +GABAPENTIN300 MG PO; +HYDROCODON-ACE1 EAC8 PO; +NARCAN4 MG
--- OUTSIDE RECORDS SUMMARY | 2018-10-05 20:08 | XMS ---
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 Care History Medical/Surgical 05/15/2018 [facility] - PATIENT PCP DR BOLANOS MADE A REFERRAL TO A NEUROLOGIST DR NICHOLS. PATIENT DAUGHTER HOUSTON WAS TO CONTACT THE NEUROLOGIST OFFICE AND SCHEDULE AN APT. - Patient is currently established with [facility]. If patient is seen in the ED during business hours. Please contact CHWs at [facility]. Care Recommendation: This patient has had 5 [...] providing care. E.D. VISIT COUNT (12 MO.) [address] [facility] TOTAL 4 NOTE: Visits indicate total known visits. 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 - Other penitentiary (current) drug therapy - Nicotine dependence, unspecified, uncomplicated - Essential (primary) hypertension 05/10/2018 14:14 [facility] [place] TYPE: Emergency COMPLAINT: - STROKE SYMPTOMS DIAGNOSES: - Basal cell carcinoma of skin of scalp and neck - Other penitentiary (current) drug therapy - Basal cell carcinoma of skin of scalp and neck - 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
--- NOTE | 2018-10-05 22:49 | NUR ---
admitted to room 120 from ED via stretcher
--- NOTE | 2018-10-06 00:10 | NUR ---
patient was coughing fairly loudly so i went and checked on him and he requested to use the restroom. patient tolerated walking well even with his right side deficit.
--- NOTE | 2018-10-06 01:45 | NUR ---
RESTING, EYES CLOSED, DRESSING OVER JAW CDI. NO C/O, CALL LIGHT AT BEDSIDE, HIGH RISK PRECAUTIONS IN PLACE
--- NOTE | 2018-10-06 02:00 | NUR ---
VITALS AND I&OS DONE AND CHARTED. BEDSIDE TABLE AND CALL LIGHT IN REACH.
--- NOTE | 2018-10-06 04:30 | NUR ---
HELPED PT TO THE BATHROOM AND BACK TO BED WITH THE HELP OF RN VANESA. CHANGED THE BED DUE TO URINE ON THEM. RED WIPED THE FLOOR, CHANGED SOCKS AND PANTS. BED ALARM SET. PT NEEDS NOTHING MORE AT THIS TIME.
--- NOTE | 2018-10-06 05:23 | NUR ---
CURRENTLY IN BED RESTING. DRESSING OVER LEFT JAW AREA AND WRAPPED OVER HEAD INTACT. DRESSING CHANGED IN ED PRIOR TO ADMISSION, AREA VERY TENDER TO TOUCH, DRESSING NOT REMOVED AT PTS REQUESTS, COOPERATIVE WITH ASSESSMENTS, [place]. GOT OUT OF BED W/O USING CALL LIGHT X1. WAS INCONTINENT OF URINE X1. GOT UP TO BRX1 W 1PA, TOLERATD WELL. FOLLOWS INSTRUCTIONS WELL, BED ALARM PLACED ON HE IS A HIGH FALL RISK, TOLERATING FLUIDS, PASSED BEDSIDE SWALLOW STUDY, TELE#[address] AWARE OF MRI PROCEDURE IN AM. QUESTIONARE COMPLETED
--- NOTE | 2018-10-06 09:38 | NUR ---
Pt resting supine in bed, alert and oriented x4. assessment completed. pt reports elevated aching pain to neck, under chin. prn po tylenol and oxycodone administered per pt request. AM meds were also administered -see emar. Call light and h2o in reach. Family at bedside and no further needs or concerns voiced.
--- NOTE | 2018-10-06 10:14 | NUR ---
PATIENT RESTING IN BED. FAMILY IN ROOM. VITAL SIGNS AND I&O DONE. CALL LIGHT WITHIN REACH. NO OTHER NEEDS AT THIS TIME
--- NOTE | 2018-10-06 11:49 | NUR ---
PT SITTING UP IN BED, EATING LUNCH. PT STATES PAIN IS NOW TOLERABLE AND DENIES NEEDS. CALL LIGHT AND H20 IN REACH. FAMILY AT BEDSIDE.
--- NOTE | 2018-10-06 12:33 | NUR ---
PT RESTING IN BED WITH GUAZE WRAP OVER HIS CHIN AND THE TOP OF HIS HEAD FROM RECENT SURGERY. HE IS PLEASANT, AND MADE IT VERY CLEAR HE COULD GO HOME AND LAY IN BED JUST EASY. EXTENDED A BLESSING TO FAMILY, WILL FOLLOW NEEDED
--- NOTE | 2018-10-06 12:45 | NUR ---
PT ABLE TO DISCUSS WITH ME HIS DIAGNOSIS AND WHAT HE NEEDS TO BE DOING TO GET BETTER AGAIN, HIS AND HE BOTH COMMENT THAT THIS IS NOT THE FIRST TIME THIS HAS HAPPENED. DENIED NEEDS AT THIS TIME. PT IS PLANNING ON RETURNING HOME ON DC WITH OP PT
--- NOTE | 2018-10-06 12:53 | NUR ---
PT RESTING SUPINE IN BED, CALL LIGHT AND H20 IN REACH. PT ALERT AND ORIENTED WATCHING TV. MD IN TO SEE PATIENT. PT ASSESSMENT COMPLETED. PT STATES "DO I GET TO GO HOME NOW". PT DENIES FURTHER CONCERNS OR NEEDS AND APPEARS TO BE IMPROVING FROM YESTERDAY. STRENGTH TO UPPER EXTREMITIES IS NEARLY EQUAL WITH ONLY SLIGHT WEEKNESS TO RIGHT ARM. BILAT LE'S ARE EQUALLY STRONG. PT CONTINUES TO DENY HAVING ANY NUMBNESS OR TINGLING.
[2018-10-06] MEDS ORDERED: ASPIRIN81 MG PO (13:05)
[2018-10-06] MEDS ORDERED: ATORVASTATIN CA40 MG PO (13:06)
--- NOTE | 2018-10-06 13:08 | NUR ---
PATIENT RESTING IN BED. FAMILY IN ROOM. VITAL SIGNS AND I&O DONE. ICE WATER GIVEN. CALL LIGHT WITHIN REACH. NO OTHER NEEDS AT THIS TIME
--- NOTE | 2018-10-06 13:30 | NUR ---
TALKED WITH ABAD FROM OT ABOUT WHAT PT COULD BE DOING AT HOME OVER THE WEEKEND AND UNTIL HE SEES, PT, OT AND ST NEXT WEEK. JIHAN STATED PT SHOULD DO THE FINGER THUMB EXERCISE, ALSO SQUISH PLAYDOH WITH RIGHT HAND AND HAVE HIM TEL HIS AFTER HE IS DONE EATING, EVERYTHING HE ATE. I EXPLAINED THIS TO THE PT AND HE WAS ABLE TO EXPLAIN IT BACK TO ME WITH THE EXCEPTION OF THE PLAYDOH AND ONCE THE WORD WAS MENTIONED HE KNEW WHAT HE WOULD HAVE TO DO. TOOK SEVERAL PACKAGES OF PLAYDOH FOR THERAPY TO HIM. PT AND DAUGHTER WERE IN THE ROOM WHEN THESE EXERCISES WERE EXPLANED AND THEY STATED UNDERSTANDING OF THIS.
--- NOTE | 2018-10-06 13:40 | NUR ---
Per case management, pt was educated on home ot and st therapies that he can complete at home while awaiting to be seen for ot/st on an outpatient bases. Pt was able to return demonstrate therapies and instructions. pt denies needs/concerns. Call light and h20 in reach. Famnily remains at bedside.
[2018-10-06] MEDS ORDERED: LIPITOR80 MG GT (13:53)
--- NOTE | 2018-10-06 14:06 | NUR ---
Medications reconciled with pharmacy records and interview with patient's . Discharge orders entered prior to medications reconciled. Patient takes atrovastatin 20mg daily, which was not originally on home meds list. Upon discharge, patient will be taking an increased dose of atorvastatin 80mg due increased stroke risk. This pharmacist called [facility] and clarified new dosing
--- NOTE | 2018-10-06 14:58 | NUR ---
PT RETURNS FROM CT. PT PROVIDED WITH SPRITE SODA PER HIS REQUEST; ICE WATER AND CALL LIGHT ALSO IN REACH. PT ASSISTED INTO POSITION OF COMFORT AND DENIES FURTHER NEEDS/CONCERNS. FAMILY AT BEDSIDE.
--- NOTE | 2018-10-06 15:05 | NUR ---
FAXED CHART NOTES INCLUDING FACE SHEET, ER NOTES AND SUMMARY, H AND P, PROG NOTES, PT, OT, AND ST EVALS AND NOTES TO [facility] OP PT, OT AND ST. ALSO ORDERS FOR SAID THERAPIES. RECIEVED FAX CONFIRMATION.
--- NOTE | 2018-10-06 15:23 | NUR ---
SCHEDULED PM MED ADMINISTERED -SEE EMAR. ASSESSMENT COMPLETED. CALL LIGHT AND H20 IN REACH. PT STATES HE IS COMFORTABLE AND NO FURTHER NEEDS VOICED.
--- NOTE | 2018-10-06 16:04 | NUR ---
PATIENT'S CALLS TO GET A WARM BLANKET. PATIENT RESTING IN BED. WARM BLANKET PROVIDED. CALL LIGHT WITHIN REACH. NO OTHER NEEDS AT THIS TIME
--- NOTE | 2018-10-06 17:44 | NUR ---
PATIENT RESTING IN BED. IN ROOM. VITAL SIGNS AND I&O DONE. CALL LIGHT WITHIN REACH. NO OTHER NEEDS AT THIS TIME
--- NOTE | 2018-10-06 18:50 | NUR ---
RECIEVED CALL FROM BED CONTROL @ [facility] WITH BED, PT WILL BE GOING TO RM1 BED1 PER DILIA, REPORT TO BE CALLED TO [phone].
--- NOTE | 2018-10-06 18:53 | NUR ---
PATIENT RESTING IN BED. RN IN ROOM. FINAL VITAL SIGNS WERE OBTAINED PRIOR TO DISCHARGE FROM THE UNIT
--- NOTE | 2018-10-06 19:51 | NUR ---
ADA RN CALLED [facility] FOR AN ETA ON TRANSFER. THEY SAID THEY FORGOT TO CALL BUT ARE ON THEIR WAY HERE. FAMILY AND PT NOTIFIED.
--- NOTE | 2018-10-06 20:01 | NUR ---
VITALS DONE AND CHARTED.
--- NOTE | 2018-10-06 20:07 | NUR ---
[facility] ARRIVED AT 1957 TO TRANSFTER PT. HE WALKED TO [facility] AND LEFT WITH THEM AT 2006.
== END 2018-10-06 20:09 | disposition short-term general hospital (02) | DRG 64 ==
LOC: ED 20:06 → MS 22:06
PROVIDERS: ADMIT Student in an Organized Health Care Education/Training Program
DX: I63.133 Cerebral infarction due to embolism of bilateral carotid arteries (principal); G93.41 Metabolic encephalopathy; G81.91 Hemiplegia, unspecified affecting right dominant side; R47.01 Aphasia; K21.9 Gastro-esophageal reflux disease without esophagitis; R29.810 Facial weakness; G89.4 Chronic pain syndrome; R29.704 NIHSS score 4; I10 Essential (primary) hypertension; C44.41 Basal cell carcinoma of skin of scalp and neck; E78.5 Hyperlipidemia, unspecified; F17.200 Nicotine dependence, unspecified, uncomplicated; R73.03 Prediabetes; Z86.73 Personal history of transient ischemic attack (TIA), and cerebral infarction without residual deficits; Z79.891 Long term (current) use of opiate analgesic; Z79.899 Other long term (current) drug therapy
CPT/HCPCS: 36415; 70496; 70498; 70551; 80048; 80061; 82140; 83036; 83735; 85025; 85610; 85730; 97162; 97166; 99285-25; J1644; J1650; J7120; Q9967

== ENCOUNTER 2020-02-21 13:23 | Emergency (ER) | payer MEDICARE ==
[~2020-02-21] VITALS: Ht 175.3 cm; Wt 79.4 kg
--- OUTSIDE RECORDS SUMMARY | ~2020-02-21 | XMS | Encounter Summary ---
Demographics + + + | Address | [address] | | | [place] [address] | + + + | Home Phone | | + + + | Preferred Language | Unknown | + + + | Marital Status | | + + + | Synagogue Affiliation | Unknown | + + + | Race | White | + + + | Ethnic Group | Not or | + + + Author + + + | Author | [facility] | | | and [place] | + + + | Organization | [facility] | | | and [place] | + + + | Address | Unknown | + + + | Phone | Unavailable | + + + Support + + + + + | Name | Relationship | Address | Phone | + + + + + | Alanna Merino | ECON | [address] | | | | | [place], [place] | | | | | [address] | | + + + + + | Isabella "Tiki" | ECON | [address] | | | [place] | | [place], [place] | | | | | [address] | | + + + + + Care Team Providers + +------+ + | Care Patrol Sergeant Name | Role | Phone | + +------+ + | No, Physician | PCP | Unavailable | + +------+ + Encounter Details +--------+ + + + + | Date | Type | Department | Care Team | Description | +--------+ + + + + | 06/14/ | Documentati | [facility] | Carly Jaime | | | 2019 | on | [facility] | MD Paulette [address] | | | | | [facility]OGY CLIN[facility] [address] | [facility] [place] | | | | | [address] | [address] | | | | | [place] [address] | | | | | | [phone] | | | +--------+ + + + + Social History + +-------+ +--------+ + | Tobacco Use | Types | Packs/Day | Years | Date | | | | | Used | | + +-------+ +--------+ + | Current Every Day | | 0.5 | | Started: 08/01/1997 | | Smoker | | | | | + +-------+ +--------+ + + +---+---+---+ | Smokeless Tobacco: | | | | | Former User | | | | + +---+---+---+ + + | Comments: Has smoked on and off since he started smoking at age 11. Quit for about 10 | | years and restared around 1997. | + + + + +---------+ + | Alcohol Use | Drinks/Week | oz/Week | Comments | + + +---------+ + | No | | | | + + +---------+ + + + + | Sex Assigned at | Date Recorded | | | | + + + | Not on file | | + + + documented as of this encounter Progress Notes Carly Jaime MD - 06/14/2019 11:59 PM PST Radiation Treatment Summary Diagnosis: ICD-10-CM ICD-9-CM 1. Recurrent basal cell carcinoma C44.91 173.91 Treatment Dates: Guilherme Merino was treated in our clinic between the dates of 05/16/2019 - 06/14/2019. Intent: Curative Treatment Technique: ENFACE Treatment Site: Skin Prescription and Treatment Summary: Course: L neck 2 Plan ID Energy Fractions Dose per Fraction (cGy) Dose Correction (cGy) Total Dose Delivered (cGy) Elapsed Days L neck skin 2 9E 20 / 20 275 0 5,500 29 Pain assessment: Location: Neck Pain Level: PAIN PROG PAIN LEVEL: 6 Pain Quality: Stable, Constant Itching "Just want to scratch it" Current pain regimen: Emla cream, worse at night. Trego added Chemotherapy: No systemic therapy Assessment: Guilherme Merino completed the planned course of course of external beam radiation therap y without any unexpected complications or breaks. Treatment tolerance: Good. He developed expected moderate radiation dermatitis with deep e rythema, no desquamation. Reported significant tenderness, treated with EMLA and Trego. Mo derate radiation-related fatigue. Disease response to treatment: Disease regression and/or disease related symptom improveme nt. Disposition: 1. Follow-up in our clinic: 3 months a. Labs: None b. Imaging: None 2. Follow-up with Dr. Montague as directed for ongoing close skin surveillance. Coordination of care will be arranged between providers for future visits. Guilherme Merino was encouraged to call our clinic with any further questions or concern s. Thank you for allowing me to participate in his care. If you should have any questions r egarding this treatment summary, please do not hesitate to contact me. Carly Jaime MD Radiation Oncologist Department of Radiation Oncology [facility] documented in this encounter Plan of Treatment +--------+ + + + + | Date | Type | Specialty | Care Team | Description | +--------+ + + + + | 03/26/ | Appointment | Radiation Oncology | Papito Alvarez MD | | | 2019 | | | [address] [facility] | | | | | | [place] | | | | | | [id number] | | | | | | | | +--------+ + + + + documented as of this encounter Visit Diagnoses + + | Diagnosis | + + | Recurrent basal cell carcinoma - Primary Basal cell carcinoma of skin, site | | unspecified | + + documented in this encounter
--- OUTSIDE RECORDS SUMMARY | ~2020-02-21 | XMS | Encounter Summary ---
Demographics + + + | Address | [address] | | | [place] [address] | + + + | Home Phone | | + + + | Preferred Language | Unknown | + + + | Marital Status | | + + + | Orthodox Affiliation | NRP | + + + | Race | White | + + + | Ethnic Group | Not or | + + + Author + + + | Author | [facility] | + + + | Organization | [facility] | + + + | Address | Unknown | + + + | Phone | Unavailable | + + + Support + + + + + | Name | Relationship | Address | Phone | + + + + + | Alanna Merino | DAT | [address] | | | | | [place] | | | | | [address] | | + + + + + Care Team Providers + +------+ + | Care Briquetter Operator Name | Role | Phone | + +------+ + PCP | Unavailable | + +------+ + Encounter Details +--------+ + + + + | Date | Type | Department | Care Team | Description | +--------+ + + + + | 06/14/ | Office | [facility] | Note, Dermatology | Progress Note | | 2001 | Visit-Trans | | Clinic | | | | cribed | | | | +--------+ + + + + Social History + +-------+ +--------+------+ | Tobacco Use | Types | Packs/Day | Years | Date | | | | | Used | | + +-------+ +--------+------+ | Never Assessed | | | | | + +-------+ +--------+------+ + + + | Sex Assigned at | Date Recorded | | | | + + + | Not on file | | + + + + + + + | Job Start Date | Occupation | Industry | + + + + | Not on file | Not on file | Not on file | + + + + + + + + | Travel History | Travel Start | Travel End | + + + + + + | No recent travel history available. | + + documented as of this encounter Progress Notes Interface, Research Assoc In - 02/01/2006 1:02 AM PDTSURGEON: Camron Coon M.D. DIGITAL CONTENT SPECIALIST: Renetta Carlos M.D. RESIDENT: Rayray Win M.D. and Deion Clinton M.D. INDICATIONS: The patient was left with a 8.5 x 7.0 cm. defect on the left neck following removal of a recurrent sclerosing basal cell carcinoma with Mohs micrographic surgery. Various closure modalities were discussed with the patient, and it was decided that a full thickness skin graft with an advancement flap closing the dog ear would best preserve normal anatomical and functional relationships. After the discussion of the risks of bleeding, scarring, infection, and wound dehiscense, informed consent was obtained, and the patient underwent the procedure as follows. PROCEDURE: The patient was taken to the operative suite and placed supine on the operating room table. The areas were washed with Hibiclens, rinsed with saline, and draped with sterile towels. A template of the primary defect was fashioned using nonadherent dressing. The template was then transposed to the donor site and donor graft was excised along the lines of the template. The graft was then trimmed of fat and excess dermis, rinsed in saline and placed over the primary defect. It was rotated until the precise fit was obtained. 5-0 vicryl and fast absorbing gut sutures were used. Next an advancement flap closure was used to close the donor site on the dog-ear. The graft was sutured to the edges of the primary defect using 6-0 fast absorbing gut interrupted sutures. The wound edges were then approximated using 2-0 vicryl buried dermal sutures. The epidermis was carefully approximated using 4-0 and 5-0 prolene and fast absorbing gut sutures. A sterile pressure dressing was then placed over the donor site. The final wound length was 11 x 4.5cm. Wound care instructions were given. The patient will return in one week to have the sutures removed. 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 FINAL PROCEDURE: Full thickness skin graft along with an advancement flap closing the donor site on the dog-ear. COMPLICATIONS: None. _ Camron Coon M.D. Professor and Chair, Dermatologic Renetta Carlos M.D. Surgery Fellow, Dermatology Ash Sebastian M.D. Resident, Dermatology Pursuant to federal Medicare billing regulations, I certify that I was present, at a minimum, during the chavira components of the procedure: identify type of reconstruction, area of primary and secondary tissue movement, design of flap/donor site for graft, location of chavira stitch, and review of final result. NS/lf A 1: 02 AM PDTInterface, Research Assoc In - 02/01/2006 1:02 AM PDTSURGEON: Camron Coon M.D. DIGITAL CONTENT SPECIALIST: Renetta Carlos M.D. RESIDENT: Rayray Win M.D. and Deion Clinton M.D. ASSESSMENT: Taken and Recorded INDICATIONS: Patient presents with recurrent sclerosing basal cell carcinoma of the left neck, pretreatment lesion size 5 x 5.5 cm. Because of the size, site, aggressive pathology, ill-defined borders and diagnosis of the lesion, it is felt that it is best treated with Mohs micrographic surgery. Alternative surgical and nonsurgical therapies were discussed with the patient prior to obtaining written and verbal consent for Mohs surgery after explanation of risks of bleeding, infection, and scarring. STAGE I: The patient was placed supine on the operating room table. The wound was defined and infiltrated with lidocaine with epinephrine. The area was then debulked. Initial excisions were made around the clinical and debulk markings and hemostasis was obtained by electrodessication. A dressing was placed. Tissue was divided into 17 specimens, which were mapped, color-coded at their margins, and frozen sectioning was performed. Microscopic tumors were found persisting in none of the specimens. With the lesion clear of microscopic tumor, surgery was considered complete. Following surgery, the defect measures as follows: 8.5 x 7.0 cm. defect size. 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 CONDITION AT TERMINATION OF THERAPY: Carcinoma removed. COMMENTS: Full thickness skin graft with a advancement flap closure _ Camron Coon M.D. Professor and Chair, Dermatologic Renetta Carlos M.D. Surgery Fellow, Dermatology Deion Clinton M.D. Rayray Win M.D. Resident, Dermatology Pursuant to federal Medicare billing regulations, I certify that I was present, at a minimum, during the chavira components of the procedure: identify location/lesion and method of destruction. Identify the appropriate margin, respect for anatomy and reading, and prepared histologic session. JEREMÍAS/reena A 1: 02 AM PDTdocumented in this encounter Plan of Treatment Not on filedocumented as of this encounter Visit Diagnoses Not on filedocumented in this encounter"
--- OUTSIDE RECORDS SUMMARY | ~2020-02-21 | XMS | Encounter Summary ---
Demographics + + + | Address | [address] | | | [place] [address] | + + + | Home Phone | | + + + | Preferred Language | Unknown | + + + | Marital Status | | + + + | Gnosticism Affiliation | Unknown | + + + | Race | White | + + + | Ethnic Group | Not or | + + + Author + + + | Author | [facility] | | | and [place] | + + + | Organization | [facility] | | | and [place] | + + + | Address | Unknown | + + + | Phone | Unavailable | + + + Support + + + + + | Name | Relationship | Address | Phone | + + + + + | Alanna Merino | ECON | [address] | | | | | [place], [place] | | | | | [address] | | + + + + + | Isabella "Tiki" | ECON | [address] | | | [place] | | [place], [place] | | | | | [address] | | + + + + + Care Team Providers + +------+ + | Care Nurse Tech Name | Role | Phone | + +------+ + | No, Physician | PCP | Unavailable | + +------+ + Encounter Details +--------+ + + + + | Date | Type | Department | Care Team | Description | +--------+ + + + + | 06/14/ | Hospital | [facility] | Yeni Carly | Recurrent basal cell | | 2019 | Encounter | [facility] | MD Paulette [address] | carcinoma (Primary | | | | ONCOLOGY CLINIC [address] | [place], [place] | Dx) | | | | [facility] | [address] | | | | | [place] [address] | | | | | | [phone] | | | +--------+ + + + [...] + + + | Blood Pressure | 164/80 | 06/14/2019 10:22 AM | | | | | PST | | + + + + + | Pulse | 87 | 06/14/2019 10:22 AM | | | | | PST | | + + + + + | Temperature | 37.2 C (99 F) | 06/14/2019 10:22 AM | | | | | PST | | + + + + + | Respiratory Rate | 18 | 06/14/2019 10:22 AM | | | | | PST | | + + + + + | Oxygen Saturation | 96% | 06/14/2019 10:22 AM | | | | | PST | | + + + + + | Inhaled Oxygen | - | - | | | Concentration | | | | + + + + + | Weight | 85.5 kg (188 lb 7.9 | 06/14/2019 10:22 AM | | | | oz) | PST | | + + + + + | Height | - | - | | + + + + + | Body Mass Index | 27.29 | 12/27/2018 9:52 AM | | | [...] + + +---------+ + + | | Take 1-2 tablets by | 45 | 0 | 06/14/20 | | | HYDROcodone-acetamin | mouth every 6 hours | tablet | | 19 | 0 | | ophen (NORCO) 5-325 | as needed for Pain | | | | | | mg per tablet | for up to 30 days. | | | | | + + [...] Progress Notes Carly Jaime MD - 06/14/2019 1:15 PM PST Radiation Oncology Weekly On Treatment Note Diagnosis: ICD-10-CM ICD-9-CM 1. Recurrent basal cell carcinoma C44.91 173.91 Reason for visit: On treatment evaluation Radiation technical factors: Dose Delivered Dose Planned Fractions Delivered 5500 cGy 5500 cGy Images were reviewed this week and results [...] 25 mcg by mouth 2 times daily. lidocaine-prilocaine (EMLA) cream Apply to area twice daily 30 g 2 lisinopril (PRINIVIL, ZESTRIL) 10 mg tablet Take 20 mg by mouth Daily. omeprazole (PRILOSEC) 20 mg capsule Take 20 mg by mouth every morning (before breakfast ). No current facility-administered medications on file prior to encounter. Pain assessment: Location: Neck Pain Level: PAIN PROG PAIN LEVEL: 6 Pain Quality: Stable, Constant Itching "Just want to scratch it" Current pain regimen: Emla cream, worse at night Wt Readings from Last 3 Encounters: 06/14/19 85.5 kg (188 lb 7.9 oz) 06/07/19 85.6 kg (188 lb 11.4 oz) 05/30/19 85.6 kg (188 lb 11.4 oz) Vitals: 06/14/19 1022 BP: 164/80 Pulse: 87 Resp: 18 Temp: 37.2 C (99 F) TempSrc: Temporal SpO2: 96% Weight: 85.5 kg (188 lb 7.9 oz) Physical Exam Constitutional: He appears well-developed and well-nourished. Neurological: He is alert. Skin: No rash noted. There is erythema (Deep erythema without desquamation). Psychiatric: He has a normal mood and affect. Nurse Assessment and Toxicity Grading: Toxicity Flowsheet 06/14/2019 Diarrhea - Nausea - Vomiting - Fatigue 2 - Grade 2 Anorexia - Cough 1 - Grade 1 Dyspnea 0 - Grade 0 Palmar-Plantar Erythrodysesthesia Syndrome - Rash Acneiform - Rash Maculo-Papular - Karnofsky Performance Score 50% Physician Assessment: 06/14/19: Miguel A completes radiation treatment today. He reports significant neck pain. EM LA is helping, but he is having difficulty sleeping due to the discomfort. His is prov iding excellent skin care with emollient lotions. He has developed expected radiation derma titis. Reports moderate fatigue. Disposition: completed treatment as planned. Continue skin care with emollient lotion. EMLA and hydrocodone for pain control. Rx for [place] 5/325 provided Follow-up in 3 months, sooner if needed Continue regular follow-up with Dr. Eddi Jaime MD Radiation Oncologist documented in this [...] [place] | | | | | | [id number] | | | | | | | | +--------+ + + + + documented as of this encounter Procedures + +--------+ + + + | Procedure Name | Priori | Date/Time | Associated Diagnosis | Comments | | | ty | | | | + +--------+ + + + | PATHOLOGY - EXTERNAL | | 04/05/2019 | | Results for this | | SCAN | | 12:00 AM | | procedure are in the | | | | PDT | | results section. | + +--------+ + + + documented in this encounter Results PATHOLOGY - EXTERNAL SCAN (04/05/2019 12:00 AM PDT) + + + | Narrative | Performed At | + + + | Ordered by an | | | unspecified provider. | | + + + documented in this encounter Visit Diagnoses + + | Diagnosis | + + | Recurrent basal cell carcinoma - Primary Basal cell carcinoma of skin, site | | unspecified | + + documented in this encounter
--- OUTSIDE RECORDS SUMMARY | ~2020-02-21 | XMS | Encounter Summary ---
Demographics + + + | Address | [address] | | | [place] [address] | + + + | Home Phone | | + + + | Preferred Language | Unknown | + + + | Marital Status | | + + + | Restoration Affiliation | NRP | + + + | Race | White | + + + | Ethnic Group | Not or | + + + Author + + + | Author | [facility] | + + + | Organization | [facility] | + + + | Address | Unknown | + + + | Phone | Unavailable | + + + Support + + + + + | Name | Relationship | Address | Phone | + + + + + | Alanna Merino | DAT | [address] | | | | | [address] | | | | | [address] | | + + + + + Care Team Providers + +------+ + | Care Test Engine Evaluator Name | Role | Phone | + +------+ + | No Pcp Per Patient | PCP | Unavailable | + +------+ + Reason for Visit + + + | Reason | Comments | + + + | Refill Request | | + + + Encounter Details +--------+--------+ + + + | Date | Type | Department | Care Team | Description | +--------+--------+ + + + | 11/29/ | Refill | [facility] | Deion Sommer, | Refill Request | | 2019 | | [facility] | [address] | | | | | [facility] | [address] | | | | | [address] | [place], [place] | | | | | [address] [place] | [address] | | | | | [facility], | [phone] | | | | | floor [place], [place] | | | | | | [address] | | | | | | [phone] | | | +--------+--------+ + + + Social History + + [...]
--- OUTSIDE RECORDS SUMMARY | ~2020-02-21 | XMS | Encounter Summary ---
Demographics + + + | Address | [address] | | | [place] [address] | + + + | Home Phone | | + + + | Preferred Language | Unknown | + + + | Marital Status | | + + + | Yazidi Affiliation | NRP | + + + | Race | White | + + + | Ethnic Group | Not or | + + + Author + + + | Author | [facility] | + + + | Organization | [facility] | + + + | Address | Unknown | + + + | Phone | Unavailable | + + + Support + + + + + | Name | Relationship | Address | Phone | + + + + + | Alanna Merino | DAT | [address] | | | | | [address] | | | | | [address] | | + + + + + Care Team Providers + +------+ + | Care Supervisor Green End Department Name | Role | Phone | + [...] Description | +--------+--------+ + + + | 11/20/ | Refill | [facility] | Mariposa Avila, | Refill Request | | 2019 | | [facility] [place] | RN [address] | | | | | [facility] | [address] | | | | | [address] | [place], [place] | | | | | G[place]elle Maldon[place] | [address] | | | | | [facility], | | | | | | [place], [place] | | | | | | [address] | | | | | | [phone] | | | +--------+--------+ + + + [...]
--- OUTSIDE RECORDS SUMMARY | ~2020-02-21 | XMS | Encounter Summary ---
Demographics + + + | Address | [address] | | | [place] [address] | + + + | Home Phone [...] [place], [place] | | | | | [address] | | + + + + + | Isabella "Tiki" | ECON | [address] | | | [place] | | [place], [place] | | | | | [address] | | + + + + + Care Team Providers + +------+ + | Care Playground Monitor Name | Role | Phone | + +------+ + | No, Physician | PCP | Unavailable | + +------+ + Encounter Details +--------+ + + + + | Date | Type | Department | Care Team | Description | +--------+ + + + + | 05/24/ | Hospital | [facility] | Yeni Carly | Recurrent basal cell | | 2019 | Encounter | [facility] | MD Paulette [address] | carcinoma (Primary | | | | ONCOLOGY CLINIC [address] | [place], [place] | Dx) | | | | [facility] | [address] | | | | | [place] [address] | | | | | | [phone] | | | +--------+ + + + [...] + + + | Blood Pressure | 138/77 | 05/24/2019 10:59 AM | | | | | PST | | + + + + + | Pulse | 68 | 05/24/2019 10:59 AM | | | | | PST | | + + + + + | Temperature | 36.7 C (98.1 F) | 05/24/2019 10:59 AM | | | | | PST | | + + + + + | Respiratory Rate | 18 | 05/24/2019 10:59 AM | | | | | PST | | + + + + + | Oxygen Saturation | 97% | 05/24/2019 10:59 AM | | | | | PST | | + + + + + | Inhaled Oxygen | - | - | | | Concentration | | | | + + + + + | Weight | 85.5 kg (188 lb 7.9 | 05/24/2019 10:59 AM | | | | oz) | [...] +---------+--------+ + documented as of this encounter Progress Notes Carly Jaime MD - 05/24/2019 11:45 AM PST Radiation Oncology Weekly On Treatment Note Diagnosis: ICD-10-CM ICD-9-CM 1. Recurrent basal cell carcinoma C44.91 173.91 Reason for visit: On treatment evaluation Radiation technical factors: Dose Delivered Dose Planned Fractions Delivered 1925 cGy 5500 cGy 01/20 Images were reviewed this week and results [...] Neck Pain Level: PAIN PROG PAIN LEVEL: 2 Pain Quality: Stable, Constant Current pain regimen: None, worse at night Wt Readings from Last 3 Encounters: 05/24/19 85.5 kg (188 lb 7.9 oz) 05/17/19 85 kg (187 lb 6.3 oz) 05/04/19 86 kg (189 lb 9.5 oz) Vitals: 05/24/19 1059 BP: 138/77 Pulse: 68 Resp: 18 Temp: 36.7 C (98.1 F) SpO2: 97% Weight: 85.5 kg (188 lb 7.9 oz) Physical Exam Constitutional: He appears well-developed and well-nourished. Neurological: He is alert. Skin: No rash noted. There is erythema (mild). Psychiatric: He has a normal mood and affect. Nurse Assessment and Toxicity Grading: Toxicity Flowsheet 05/24/2019 Diarrhea - Nausea - Vomiting - Fatigue 2 - Grade 2 Anorexia - Cough 0 - Grade 0 Dyspnea 1 - Grade 1 Palmar-Plantar Erythrodysesthesia Syndrome 1 - Grade 1 Rash Acneiform 0 - Grade 0 Rash Maculo-Papular 0 - Grade 0 Karnofsky Performance Score 50% Physician Assessment: Guilherme is in his second week of radiation. He continues to have cutaneous pain on his neck , increased since treatment. Early development of mild erythema. No desquamation. Reviewed emollient lotion recommendations. His does a great job with his skin care. Disposition: Continue radiation treatment as planned. Skin care with emollient lotion. Carly Jaime MD Radiation Oncologist documented in this encounter Plan of Treatment +--------+ + + + + | Date | Type | Specialty | Care Team | Description | +--------+ + + + + | 03/26/ | Appointment | Radiation Oncology | Papito Alvarez MD | | | 2020 | | | [address] | | | | | | [place] | | | | | | [address] | | | | | | | | +--------+ + + + + documented as of this encounter Visit Diagnoses + + | Diagnosis | + + | Recurrent basal cell carcinoma - Primary Basal cell carcinoma of skin, site | | unspecified | + + documented in this encounter
--- OUTSIDE RECORDS SUMMARY | ~2020-02-21 | XMS | Encounter Summary ---
Demographics + + + | Address | [address] | | | [place] [address] | + + + | Home Phone | | + + + | Preferred Language | Unknown | + + + | Marital Status | | + + + | Islam Affiliation | Unknown | + + + [...] [place], [place] | | | | | [address] | | + + + + + | Isabella "Tiki" | ECON | [address] | | | [place] | | [place], [place] | | | | | [address] | | + + + + + Care Team Providers + +------+ + | Care Taping Machine Operator Name | Role | Phone | + +------+ + | No, Physician | PCP | Unavailable | + +------+ + Encounter Details +--------+ + + + + | Date | Type | Department | Care Team | Description | +--------+ + + + + | 05/28/ | Orders Only | [facility] | Carly Jaime | Basal cell carcinoma | | 2019 | | [facility] | MD Paulette [address] | (BCC) of skin of | | | | ONCOLOGY CLINIC [address] | [place], [place] | neck (Primary Dx) | | | | [facility] | [address] | | | | | [place] [address] | | | | | | [phone] | | | +--------+ + + + [...] [place] | | | | | | [address] | | | | | | | | +--------+ + + + + documented as of this encounter Visit Diagnoses + + | Diagnosis | + + | Basal cell carcinoma (BCC) of skin of neck - Primary | + + documented in this encounter
--- OUTSIDE RECORDS SUMMARY | ~2020-02-21 | XMS | Encounter Summary ---
Demographics + + + | Address | [address] | | | [place] [address] | + + + | Home Phone | | + + + | Preferred Language | Unknown | + + + | Marital Status | | + + + | Religion Affiliation | Unknown | + + + | Race | White | + + + | Ethnic Group | Not or | + + + Author + + + | Author | [facility] | | | and [place] | + + + | Organization | [facility] | | | [...] [place], [place] | | | | | [address] | | + + + + + | Isabella "Tiki" | ECON | [address] | | | [place] | | [place], [place] | | | | | [address] | | + + + + + Care Team Providers + +------+ + | Care Banquet Houseperson Name | Role | Phone | + [...] | Specialty | Dermatology | Diagnoses | , | Eddi, | | | Pepito | | Basal cell | Ashu Alvarenga DO | Dominique | | | Required | | carcinoma | [address] | MD Maria Luisa | | | | | (BCC) of | [address] | [address] | | | | | skin of neck | [place], | [place] | | | | | Recurrent | [place] [address] | [place] | | | | | basal cell | Phone: | [address] | | | | | carcinoma | [phone] | Phone: | | | | | | Fax: | [phone] | | | | | | [phone] | Fax: | | | | | | | [phone] | +--------+ + + + + + Reason for Visit + + + | Reason | Comments | + + + | Under Treatment | | + + + Encounter Details +--------+ + + + + | Date | Type | Department | Care Team | Description | +--------+ + + + + | 09/28/ | Hospital | [facility] | Ashu Singh DO | Basal cell carcinoma | | 2019 | Encounter | [facility] | [address] | (BCC) of skin of | | | | ONCOLOGY CLINIC [address] | [place] | neck (Primary Dx); | | | | [address] [place] | [address] | Recurrent basal cell | | | | [place] [address] | | carcinoma | | | | [phone] | | | +--------+ + + + [...] + + + | Blood Pressure | 137/72 | 09/28/2018 10:49 AM | | | | | PDT | | + + + + + | Pulse | 65 | 09/28/2018 10:49 AM | | | | | PDT | | + + + + + | Temperature | 37.2 C (99 F) | 09/28/2018 10:49 AM | | | | | PDT | | + + + + + | Respiratory Rate | 14 | 09/28/2018 10:49 AM | | | | | PDT | | + + + + + | Oxygen Saturation | 96% | 09/28/2018 10:49 AM | | | | | PDT | | + + + + + | Inhaled Oxygen | - | - | | | Concentration | | | | + + + + + | Weight | 82.6 kg (182 lb 1.6 | 09/28/2018 10:49 AM | | | | oz) | PDT | | + + + + + | Height | - | - | | + + + + + | Body Mass Index | 26.37 | 08/01/2018 1:01 PM | | | | | PST | [...] | Take by mouth as | | 0 | | | | (STOOL SOFTENER PO) | needed. | | | | 9 | + + + +---------+ + + | gabapentin | Take 3 capsules by | 270 | 0 | 09/08/19 | | | (NEURONTIN) 300 mg | mouth 3 times daily. | capsule | | 19 | 9 | | capsuleIndications: | | | | | | | Recurrent basal cell | | | | | | | carcinoma | | | | | | + + + +---------+ + + | | Take 1-2 tablets by | 120 | 0 | 09/22/19 | | | HYDROcodone-acetamin | mouth every 6 hours | tablet | | 19 | 9 | | ophen (NORCO) 10-325 | as needed for Pain. | | | | | | mg per tablet | | | | | | + + + +---------+ + + | | Take 1 tablet by | | 0 | | | | lisinopril-hydrochlo | mouth Daily. | | | | 9 | | rothiazide | | | | | | | (PRINZIDE,ZESTORETIC | | | | | | | ) 10-12.5 MG per | | | | | | | tablet | | | | | | + + + +---------+ + + | naloxone (NARCAN) | 1 spray by Nasal | 2 each | 0 | 09/22/19 | | | 4 mg/nasal spray | route as needed for | | | 19 | 9 | | | Decreased | | | | | | | Responsiveness. | | | | | + + + +---------+ + + documented as of this encounter Progress Notes Ashu Singh DO - 09/28/2018 10:50 AM PDT Radiation Oncology Weekly On Treatment Note Diagnosis: ICD-10-CM ICD-9-CM 1. Basal cell carcinoma (BCC) of skin of neck C44.41 173.41 2. Recurrent basal cell carcinoma C44.91 173.91 Reason for visit: On treatment evaluation Radiation technical factors: Dose Delivered Dose Planned Fractions Delivered 4950 cGy 5500 cGy Setup was verified clinically on the treatment machine. Corrections were applied as necess raul. No Known Allergies Current Outpatient Prescriptions on File Prior to Encounter Medication Sig Dispense Refill atorvaSTATin (LIPITOR) 20 mg tablet Take 20 mg by mouth nightly. Docusate Calcium (STOOL SOFTENER PO) Take by mouth as needed. gabapentin (NEURONTIN) 300 mg capsule Take 3 capsules by mouth 3 times daily. 270 capsu le 0 HYDROcodone-acetaminophen (NORCO) 10-325 mg per tablet Take 1-2 tablets by mouth every 6 hours as needed for Pain. 120 tablet 0 lisinopril-hydrochlorothiazide (PRINZIDE,ZESTORETIC) 10-12.5 MG per tablet Take 1 table t by mouth Daily. naloxone (NARCAN) 4 mg/nasal spray 1 spray by Nasal route as needed for Decreased Respo nsiveness. 2 each 0 omeprazole (PRILOSEC) 20 mg capsule Take 20 mg by mouth every morning (before breakfast ). No current facility-administered medications on file prior to encounter. Pain assessment: Location: Left neck Pain Level: PAIN PROG PAIN LEVEL: 6 Pain Quality: Stable Current pain regimen: Rhome 10/325 1 tab q 6hours Wt Readings from Last 3 Encounters: 09/28/18 82.6 kg (182 lb 1.6 oz) 09/21/18 82.6 kg (182 lb 1.6 oz) 09/14/18 83.5 kg (184 lb 1.4 oz) Vitals: 09/28/18 1049 BP: 137/72 Pulse: 65 Resp: 14 Temp: 37.2 C (99 F) TempSrc: Temporal SpO2: 96% Weight: 82.6 kg (182 lb 1.6 oz) Physical Exam Constitutional: He is oriented to person, place, and time. Vital signs are normal. He appea rs well-developed and well-nourished. No distress. HENT: Head: Normocephalic and atraumatic. Eyes: Conjunctivae and EOM are normal. No scleral icterus. Neck: Trachea normal. Cardiovascular: Normal rate. Pulmonary/Chest: Effort normal and breath sounds normal. No accessory muscle usage. No resp iratory distress. Musculoskeletal: Normal range of motion. Neurological: He is oriented to person, place, and time. He has normal strength. No cranial nerve deficit. Coordination normal. Psychiatric: He has a normal mood and affect. His behavior is normal. Cognition and memory are normal. Nursing note and vitals reviewed. Physician Assessment: Overall, he is tolerating treatment well. Overall, the open skin wound appears clean, flat , somewhat moist and without infection measuring approximately 7 x 10 cm. Gabapentin has be en increased to 900 milligrams 3 times a day and he is tolerating this well with no signific ant pruritus. Rhome 10 mg/325mg has been titrated to 1 tab 3 times a day leading to improve d overall pain control. Recommend Domoboro soaks moving forward until skin is healed. He w ill complete treatment in the next 2 fractions. Referral to a dermatology for establishing care also made today. Toxicities reviewed in nursing note. Disposition: Continue radiation treatment as planned. 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 Performance Status Karnofsky Performance Score 70% documented in this en counter Plan of [...] [place] | | | | | | [id number] | | | | | | | | +--------+ + + + + + + +--------+ + + | Name | Type | Priori | Associated Diagnoses | Order Schedule | | | | ty | | | + + +--------+ + + | Kelli Pereira | Outpatient | Routin | Basal cell | Ordered: 09/28/2018 | | Clinic Dermatology | Referral | e | carcinoma (BCC) of | | | Group - AMB Referral | | | skin of neck | | | | | | Recurrent basal cell | | | | | | carcinoma | | + + +--------+ + + documented as of this encounter Visit Diagnoses + + | Diagnosis | + + | Basal cell carcinoma (BCC) of skin of neck - Primary | + + | Recurrent basal cell carcinoma Basal cell carcinoma of skin, site unspecified | + + documented in this encounter
--- OUTSIDE RECORDS SUMMARY | ~2020-02-21 | XMS | Encounter Summary ---
Demographics + + + | Address | [address] | | | [place] [address] | + + + | Home Phone | | + + + | Preferred Language | Unknown | + + + | Marital Status | | + + + | Zoroastrianism Affiliation | Unknown | + + + | Race | White | + + + | Ethnic Group | Not or | + + + Author + + + | Author | [facility] | | | and [place] | + + + | Organization | [facility] | | [...] [place], [place] | | | | | [address] | | + + + + + | Isabella "Tiki" | ECON | [address] | | | [place] | | [place], [place] | | | | | [address] | | + + + + + Care Team Providers + +------+ + | Care Grit Blaster Name | Role | Phone | + +------+ + | Alen Bolanos MD | PCP | | + +------+ + Reason for Visit + +--------+ + | Reason | Onset | Comments | | | Date | | + +--------+ + | Medication Refill | 08/14/ | | | | 2018 | | + +--------+ + Encounter Details +--------+--------+ + + + | Date | Type | Department | Care Team | Description | +--------+--------+ + + + | 08/14/ | Refill | [facility] | Ashu Singh DO | Medication Refill | | 2018 | | MED CTR MEDICAL | [address] [facility] | | | | | ONCOLOGY CLINIC [address] | [place] | | | | | [address] | [address] | | | | | [place] [address] | | | | | | [phone] | | | +--------+--------+ + + + [...] this encounter Miscellaneous Notes Telephone Encounter - Cody Sharif - 08/14/2018 9:38 AM PSTHansuraj called pt needs refi ll on gabapentin (NEURONTIN) 300 mg capsule No pharmacy changes and did not req call back. Thank you documented in this encounter Plan of Treatment +--------+ + + + + | Date | Type | Specialty | Care Team | Description | +--------+ + + + + | 03/26/ | Appointment | Radiation Oncology | Papito Alvarez MD | | | 2019 | | | [address] | | | | | | [place] | | | | | | [address] | | | | | | | | +--------+ + + + + documented as of this encounter Visit Diagnoses + + | Diagnosis | + + | Recurrent basal cell carcinoma - Primary Basal cell carcinoma of skin, site | | unspecified | + + documented in this encounter
--- OUTSIDE RECORDS SUMMARY | ~2020-02-21 | XMS | Encounter Summary ---
Demographics + + + | Address | [address] | | | [place] [address] | + + + | Home Phone | | + + + | Preferred Language | Unknown | + + + | Marital Status | | + + + | Baptist Affiliation | Unknown | + + + | Race | White | + + + | Ethnic Group | Not or | + + + Author + + + | Author | [facility] | | | and [place] | + + + | Organization | [facility] | | | [...] [place], [place] | | | | | [address] | | + + + + + | Isabella "Tiki" | ECON | [address] | | | [place] | | [place], [place] | | | | | [address] | | + + + + + Care Team Providers + +------+ + | Care Raw Stock Drier Tender Name | Role | Phone | + +------+ + | No, Physician | PCP | Unavailable | + +------+ + Reason for Visit + +--------+ + | Reason | Onset | Comments | | | Date | | + +--------+ + | Appointment | 03/29/ | | | | 2018 | | + +--------+ + Encounter Details +--------+ + + + + | Date | Type | Department | Care Team | Description | +--------+ + + + + | 03/29/ | Telephone | [facility] | Ashu Singh, DO | Appointment | | 2019 | | MED CTR MEDICAL | [address] [facility] | | | | | ONCOLOGY CLINIC [address] | [place] | | | | | [address] | [address] | | | | | [place] [address] | | | | | | [phone] | | | +--------+ + + + [...] this encounter Miscellaneous Notes Telephone Encounter - Lorena Wilkins - 04/02/2019 12:48 PM PDTAppointment rescheduledElectr onically signed by Lorena Wilkins at 04/02/2019 12:48 PM PDTTelephone Encounter - Davin Wilkins - 03/29/2019 2:25 PM PDTCalled Guilherme to reschedule Dr. Singh follow up. Left message re questing a return call. docu mented in this encounter Plan of Treatment +--------+ + + + + | Date | Type | Specialty | Care Team | Description | +--------+ + + + + | 03/26/ | Appointment | Radiation Oncology | Papito Alvarez MD | | | 2019 | | | [address] | | | | | | [place] | | | | | | [id number] | | | | | | | | +--------+ + + + + documented as of this encounter Visit Diagnoses Not on filedocumented in this encounter
--- OUTSIDE RECORDS SUMMARY | ~2020-02-21 | XMS | Encounter Summary ---
Demographics + + + | Address | [address] | | | [place] [address] | + + + | Home Phone | | + + + | Preferred Language | Unknown | + + + | Marital Status | | + + + | Worship Affiliation | Unknown | + + + [...] [place], [place] | | | | | [address] | | + + + + + | Isabella "Tiki" | ECON | [address] | | | [place] | | [place], [place] | | | | | [address] | | + + + + + Care Team Providers + +------+ + | Care Wicker Worker Name | Role | Phone | + +------+ + | Alen Bolanos MD | PCP | | + +------+ + Reason for Referral Diagnostic/Screening (Routine) +--------+--------+ + + + + | Status | Reason | Specialty | Diagnoses / | Referred By | Referred To | | | | | Procedures | Contact | Contact | +--------+--------+ + + + + | Closed | | Radiology | Diagnoses | [place], | [address] | | | | | Basal cell | Ashu C DO | [address] | | | | | carcinoma | [address] | [place], | | | | | (BCC) of | [address] | [place] [address] | | | | | skin of neck | [place], | Phone: | | | | | Procedures | [place] [address] | [phone] | | | | | CT | Phone: | Fax: | | | | | Treatment | [phone] | [phone] | | | | | Plan Complex | Fax: | | | | | | CT TX PLAN | [phone] | | +--------+--------+ + + + + Reason for Visit +---------+ + | Reason | Comments | +---------+ + | Consult | | +---------+ + Evaluate & Treat (Routine) +--------+--------+ + + + + | Status | Reason | Specialty | Diagnoses / | Referred By | Referred To | | | | | Procedures | Contact | Contact | +--------+--------+ + + + + | Closed | | Radiation | Diagnoses | | Ashu Singh | | | | Oncology | Cancer of | [place], | C, DO [address] | | | | | the skin, | Abdullahi Alvarenga, | [address] | | | | | basal cell | MD [address] | [place], | | | | | Consult/Recu | [place] | [place] [address] | | | | | rrent Basel | [address] | Phone: | | | | | Cell/Quacken | [place], | [phone] | | | | | soler | [place] [address] | Fax: | | | | | Procedures | Phone: | [phone] | | | | | [place] OFFICE | [phone] | | | | | | OUTPATIENT | Fax: | | | | | | NEW 60 | [phone] | | | | | | MINUTES NEW | | | | | | | PATIENT | | | +--------+--------+ + + + + Encounter Details +--------+ + + + + | Date | Type | Department | Care Team | Description | +--------+ + + + + | 08/01/ | Hospital | [facility] | Ashu Singh DO | Basal cell carcinoma | | 2019 | Encounter | MED CTR RADIATION | [address] | (BCC) of skin of | | | | ONCOLOGY CLINIC [address] | [place] | neck (Primary Dx) | | | | [address] [place] | [address] | | | | | [place] [address] | | | | | | [phone] | | | +--------+ + + + [...] + + + | Blood Pressure | 142/87 | 08/01/2018 1:01 PM | | | | | PST | | + + + + + | Pulse | 75 | 08/01/2018 1:01 PM | | | | | PST | | + + + + + | Temperature | 37.2 C (99 F) | 08/01/2018 1:01 PM | | | | | PST | | + + + + + | Respiratory Rate | 16 | 08/01/2018 1:01 PM | | | | | PST | | + + + + + | Oxygen Saturation | 97% | 08/01/2018 1:01 PM | | | | | PST | | + + + + + | Inhaled Oxygen | - | - | | | Concentration | | | | + + + + + | Weight | 79 kg (174 lb 2.6 | 08/01/2018 1:01 PM | | | | oz) | PST | | + + + + + | Height | 177 cm (5' 9.69") | 08/01/2018 1:01 PM | | | | | PST | | + + + + + | Body Mass Index | 25.22 | 08/01/2018 1:01 PM | | | [...] + + +---------+ + + | aspirin 81 mg | Take 81 mg by mouth | | 0 | | | | chewable tablet | Daily. | | | | 9 | + + + +---------+ + + | fish oil 1,000 mg | Take 1,000 mg by | | 0 | | | | capsule | mouth Daily. | | | | 9 | + + + +---------+ + + | gabapentin | Take 1 capsule by | 90 | 0 | 08/01/19 | | | (NEURONTIN) 300 mg | mouth 3 times daily. | capsule | | 19 | 9 | | capsule | | | | | | + + + +---------+ + + | | | | 0 | 07/19/19 | | | HYDROcodone-acetamin | | | | 19 | 9 | | ophen (NORCO) 5-325 | | | | | | | mg per tablet | | | | | | + + + +---------+ + + | levETIRAcetam | take 1 [...] + + + +---------+ + + | ondansetron | DIS ONE T PO TID PRN | | 0 | 05/11/20 | | | (ZOFRAN ODT) 4 mg | NAUSEA | | | 18 | 9 | | disintegrating | | | | | | | tablet | | | | | | + + + +---------+ + + | SSD 1 % cream | APPLY TO SKIN BID | | 3 | 07/20/19 | | | | PRN FOR ITCHING | | | 19 | 9 | + + + +---------+ + + documented as of this encounter Consult Notes Ashu Singh DO - 08/01/2018 12:50 PM PST Radiation Oncology Consultation Chief Complaint/ICD10 ICD-10-CM ICD-9-CM 1. Basal cell carcinoma (BCC) of skin of neckAcute C44.41 173.41 History of Present Illness: Guilherme Merino was seen today to discuss radiotherapeutic salvage of recurrent basal cell carcinoma. He is a pleasant 63-year-old gentleman from [place], [place] who has a long-sta nding history of basal cell carcinoma involving his left neck. He has extensive sun exposur e while working in the [employer] and was first diagnosed with a left neck basal cell carci noma in 1997 described as superficial. Subsequent recurrence in 2001 describes a sclerosing basal cell carcinoma at which time Mohs surgery was performed at [facility]. He returned again i n 2008 to undergo additional Mohs surgery for a left neck recurrence. His disease has recur red over the past year increasing in size causing pain and now weeping prompting referral to Dr. Funk for further evaluation. He has complaints of severe itching and has previo usly been prescribed Silvadene cream to prevent infection. He presents today for considerat ion of radiotherapeutic treatment for his recurrent basal cell carcinoma. Guilherme Merino was seen today as a new patient evaluation at the request of Dr.Robert Lyle monroe for the evaluation and consideration of radiotherapeutic treatment in our clinic. ROS REVIEW OF SYSTEMS Constitutional: Reports fatigue, onset for months per daughter "around February." Reports dif ficulty sleeping at night, pain is keeping him up at night. Reports night sweats, onset at l east 3 months daughter says probably February. Denies high fevers, shaking chills, anorexia, n ausea, vomiting, weight loss, or night sweats. Appetite without changes. Ear, Nose, Mouth, Throat: Denies odynophagia, dysphagia, or tinnitus. Cardiovascular: Denies shortness of breath, dyspnea on exertion, chest pain, palpitations o r orthopnea. Respiratory: Reports cough and sputum production, ongoing issue, has smoked for years and c onitues to smoke. Denies hemoptysis. Gastrointestinal: Denies abdominal pain, constipation, diarrhea, melena, or bright red bloo d per rectum. Genitourinary: Denies hematuria or dysuria. Musculoskeletal: Denies joint pain or tenderness. Neurologic: Denies headache, visual changes, or numbness/tingling of the extremities. Endocrine: Denies peripheral edema or heat/cold intolerance. Hematologic: Denies spontaneous bruising or bleeding. Integumentary: Reports skin is itching around neck, "very bad." Reports skin is oozing connie etimes at the neck site from where they have scraped and done skin graphs. Pain: Reports pain in neck on left side 6/10 on scale of 0-10, goal <2/10, taking hydrocodo ne-acetaminophen for pain, last dose this morning. Note: Here for consult with Dr. Singh for recurrent basal cell, referred by Dr. Funk. My chart: Declined Current Outpatient Prescriptions Medication Sig Dispense Refill aspirin 81 mg chewable tablet Take 81 mg by mouth Daily. atorvaSTATin (LIPITOR) 20 mg tablet Take 20 mg by mouth nightly. fish oil 1,000 mg capsule Take 1,000 mg by mouth Daily. gabapentin (NEURONTIN) 300 mg capsule Take 1 capsule by mouth 3 times daily. 90 capsule 0 HYDROcodone-acetaminophen (NORCO) 5-325 mg per tablet 0 levETIRAcetam (KEPPRA) 500 mg tablet take 1 tablet by mouth twice a day 0 lisinopril-hydrochlorothiazide (PRINZIDE,ZESTORETIC) 10-12.5 MG per tablet Take 1 table t by mouth Daily. omeprazole (PRILOSEC) 20 mg capsule Take 20 mg by mouth every morning (before breakfast ). ondansetron (ZOFRAN ODT) 4 mg disintegrating tablet DIS ONE T PO TID PRN NAUSEA 0 SSD 1 % cream APPLY TO SKIN BID PRN FOR ITCHING 3 No current facility-administered medications for this encounter. Allergies No active allergies Intolerance No active intolerances/contraindications Past Medical History: Diagnosis Date Cancer of skin of neck Dyslipidemia Hypertension Seasonal allergies TIA (transient ischemic attack) Vascular dementia Past Surgical History: Procedure Laterality Date SKIN CANCER EXCISION Family History Problem Relation Age of Onset Cancer Father Social History Social History Marital status: Spouse name: N/A Number of children: N/A Years of education: N/A Occupational History Not on file. Social History Main Topics Smoking status: Current Every Day Smoker Packs/day: 1.00 Start date: 08/01/1997 Smokeless tobacco: Former User Comment: Has smoked on and off since he started smoking at age 11. Quit for about 10 yea rs and restared around 1997. Alcohol use No Drug use: Yes Types: Marijuana, Narcotics Sexual activity: Not on file Other Topics Concern Not on file Social History Narrative No narrative on file BP 142/87 | Pulse 75 | Temp 37.2 C (99 F) (Temporal) | Resp 16 | Ht 1.77 m (5' 9.69 ") | Wt 79 kg (174 lb 2.6 oz) | SpO2 97% | BMI 25.22 kg/m Physical Exam Constitutional: He is oriented to person, place, and time. Vital signs are normal. He appea rs well-developed and well-nourished. No distress. HENT: Head: Normocephalic and atraumatic. Eyes: Conjunctivae and EOM are normal. No scleral icterus. Neck: Trachea normal. Cardiovascular: Normal rate. Pulmonary/Chest: Effort normal and breath sounds normal. No accessory muscle usage. No resp iratory distress. Musculoskeletal: Normal range of motion. Lymphadenopathy: Head (right side): No preauricular and no posterior auricular adenopathy present. Head (left side): No preauricular and no posterior auricular adenopathy present. Right cervical: No deep cervical and no posterior cervical adenopathy present. Left cervical: No deep cervical and no posterior cervical adenopathy present. Right: No supraclavicular adenopathy present. Left: No supraclavicular adenopathy present. Neurological: He is oriented to person, place, and time. He has normal strength. No cranial nerve deficit. Coordination normal. Psychiatric: He has a normal mood and affect. His behavior is normal. Judgment and thought content normal. Cognition and memory are normal. Nursing note and vitals reviewed. Questionnaires: Have you ever had radiation treatment: no Comments: Do you have a pacemaker or ICD: no Type: Radiology Practitioner Assistant: Is it MRI compatible: Are you claustrophobic? no Comments: Do you have a connective tissue disorder such as Lupus, Scleroderma, or other: no Labs: No results found for: WBC, HGB, HCT, MCV, LABPLAT, PLT No results found for: CREA, BUN, NA, K, CL, CO2 No results found for: ALT, AST, GGT, ALKPHOS, BILITOT No results found for: PSA Staging (if applicable): Recurrent Impression with Recommendation/Plan: 1. Basal cell carcinoma (BCC) of skin of neck - CT Treatment Plan Complex Guilherme Merino was seen today to discuss radiotherapeutic treatment for recurrent basal c ell carcinoma. Today we reviewed his prior history after record review including his last s urgeries at [facility] found in care everywhere. He states that he does not want any further surg maisha on his neck as his last surgery took over 8 hours to complete and due to the distance re quired to return to [facility]. I reviewed with them the current NCCN guidelines regarding the ma nagement of basal cell carcinoma including the option of further surgical evaluation with Dr Cheri Herrera at the [facility] who is a fellowship trained Moh's surgeon, however, he d eclined. I reviewed radiotherapeutic treatment for recurrent disease including the high pro bability of local control. Treatment is typically performed using an en face electron beam encompassing the involved segment of skin plus a margin that is typically 2 cm. Expected si de effects include skin irritation and due to the short penetration of an electron beam like ly irritation of the larynx and esophagus with minimal effect on the oropharynx. He verbali zed his understanding and wishes to proceed in the near future. To reduce his discomfort an d address itching, he was given a prescription for gabapentin 300 mg to take 3 times a day t itrated to effect prior to starting treatment. Overall, he is an excellent candidate for ra diotherapeutic salvage for his recurrent basal cell carcinoma. The risks, benefits, logistics, and techniques of external beam irradiation for the treatme nt of this condition were discussed in detail including the process of simulation and treatm ent delivery. A detailed discussion regarding signs and symptoms of early(temporary) and la te(permanent) side effects occurred next. Guilherme verbalized understanding of the treatment r ecommendation and wishes to proceed to simulation when appropriate. This will be arranged pe nding a discussion with the referring physician and the multidisciplinary team to complete l abs and initial workup as necessary. The information found at www.rtanswers.org was advised for further information specific to radiation therapy. Guilherme was encouraged to call our clinic with any further questions or c oncerns. A visit summary was given to the patient prior to leaving clinic today. Thank you for allowing me to participate in the care of Guilherme. If you should have any ques tions regarding this evaluation, please do not hesitate to contact me. Ashu Singh D.O., ZACR Radiation Oncologist Department of Radiation Oncology [facility] This note was transcribed using codetag speech recognition software. As a result, there may be unintended for medical and/or spelling errors. Every attempt is made to correct dictati on. If there are any questions or errors please contact our office. documented in this enco unter Plan of Treatment +--------+ + + + + | Date | Type | Specialty | Care Team | Description | +--------+ + + + + | 03/26/ | Appointment | Radiation Oncology | Papito Alvarez MD | | | 2019 | | | [address] [facility] | | | | | | [place] | | | | | | [phone] | | | | | | | [...] this | | COMPLEX | e | 11:43 AM | carcinoma (BCC) of | procedure are in the | | | | PST | skin of neck | results section. | + +--------+ + + + | IMAGING REPORT - | | 07/12/2018 | | Results for this | | EXTERNAL SCAN | | 12:00 AM | | procedure are in the | | | | PST | | results section. | + +--------+ + + + | LABS - EXTERNAL SCAN | | 04/25/2018 | | Results for this | | | | 12:00 AM | | procedure are in the | | | | PDT | | results section. | + +--------+ + + + | PATHOLOGY - EXTERNAL | | 04/15/2009 | | Results for this | | SCAN | | 12:00 AM | | procedure are in the | | | | PDT | | results section. | + +--------+ + + + documented in this encounter Results CT Treatment Plan Complex (08/08/2018 11:43 AM PST) + + | Specimen | + + | | + + + + + | Narrative | Performed At | + + + | This exam has been auto-finalized and the interpretation may exist | [facility] | | elsewhere in the chart. | | + + + + +---------+ + + | Performing | Address | City/State/Zipcode | Phone Number | | Organization | | | | + +---------+ + + | [facility] | | | | + +---------+ + + IMAGING REPORT - EXTERNAL SCAN (07/12/2018 12:00 AM PST) + + + | Narrative | Performed At | + + + | Ordered by an | | | unspecified provider. | | + + + LABS - EXTERNAL SCAN (04/25/2018 12:00 AM PDT) + + + | Narrative | Performed At | + + + | Ordered by an | | | unspecified provider. | | + + + PATHOLOGY - EXTERNAL SCAN (04/15/2009 12:00 AM PDT) + + + | [...]
--- OUTSIDE RECORDS SUMMARY | ~2020-02-21 | XMS | Encounter Summary ---
Demographics + + + | Address | [address] | | | [place] [address] | + + + | Home Phone | | + + + | Preferred Language | Unknown | + + + | Marital Status | | + + + | Spiritism Affiliation | NRP | + + + | Race | White | + + + | Ethnic Group | Not or | + + + Author + + + | Author | [facility] | + + + | Organization | [facility] | + + + | Address | Unknown | + + + | Phone | Unavailable | + + + Support + + + + + | Name | Relationship | Address | Phone | + + + + + | Alanna Merino | DAT | [address] | | | | | [address] | | | | | [address] | | + + + + + Care Team Providers + +------+ + | Care Visual Inspector Name | Role | Phone | + +------+ + | No Pcp Per Patient | PCP | Unavailable | + +------+ + Encounter Details +--------+ + + + + | Date | Type | Department | Care Team | Description | +--------+ + + + + | 10/10/ | Pharmacy | Outpatient [facility] | | | | 2019 | Visit | [facility] | | | | | | [address] | | | | | | [place], [place] | | | | | | [address] | | | | | | [phone] | | | +--------+ + + + [...]
--- OUTSIDE RECORDS SUMMARY | ~2020-02-21 | XMS | Encounter Summary ---
Demographics + + + | Address | [address] | | | [place] [address] | + + + | Home Phone | | + + + | Preferred Language | Unknown | + + + | Marital Status | | + + + | Confucianist Affiliation | Unknown | + + + | Race | White | + + + | Ethnic Group | Not or | + + + Author + + + | Author | [facility] | | | and [place] | + + + | Organization | [facility] | | [...] [place], [place] | | | | | [address] | | + + + + + | Isabella "Tiki" | ECON | [address] | | | [place] | | [place], [place] | | | | | [address] | | + + + + + Care Team Providers + +------+ + | Care Welder Operator Name | Role | Phone | + +------+ + | Alen Bolanos MD | PCP | | + +------+ + Encounter Details +--------+ + + + + | Date | Type | Department | Care Team | Description | +--------+ + + + + | 09/06/ | Hospital | [facility] | Ashu Singh DO | | | 2019 | Encounter | MED CTR RADIATION | [address] | | | | | ONCOLOGY [address] | [place] | | | | | [place], | [address] | | | | | [place] [address] | | | | | | [phone] | | | +--------+ + + + [...] +---------+ + + | gabapentin | Take 2 capsules by | 180 | 0 | 09/05/19 | | | (NEURONTIN) 300 mg | [...] | 0 | 05/11/20 | | | (ZOFRPRAFUL ODT) 4 mg | NAUSEA | | [...] [place] | | | | | | [id number] | | | | | | | | +--------+ + + + + documented as of this encounter Visit Diagnoses Not on filedocumented in this encounter
--- OUTSIDE RECORDS SUMMARY | ~2020-02-21 | XMS | Encounter Summary ---
Demographics + + + | Address | [address] | | | [place] [address] | + + + | Home Phone | | + + + | Preferred Language | Unknown | + + + | Marital Status | | + + + | Quaker Affiliation | Unknown | + + + | Race | White | + + + | Ethnic Group | Not or | + + + Author + + + | Author | [facility] | | | and [place] | + + + | Organization | [facility] | | | [...] [place], [place] | | | | | [address] | | + + + + + | Isabella "Tiki" | ECON | [address] | | | [place] | | [place], [place] | | | | | [address] | | + + + + + Care Team Providers + +------+ + | Care Project Buyer Name | Role | Phone | + +------+ + | No, Physician | PCP | Unavailable | + +------+ + Encounter Details +--------+ + + + + | Date | Type | Department | Care Team | Description | +--------+ + + + + | 05/17/ | Hospital | [facility] | Yeni Carly | Recurrent basal cell | | 2019 | Encounter | MED CTR RADIATION | MD Paulette [address] | carcinoma (Primary | | | | ONCOLOGY CLINIC [address] | [place], [place] | Dx) | | | | [facility] [address] | | | | | [place] [address] | | | | | | [phone] | | | +--------+ + + + [...] + + + | Blood Pressure | 121/73 | 05/17/2019 11:34 AM | | | | | PST | | + + + + + | Pulse | 68 | 05/17/2019 11:34 AM | | | | | PST | | + + + + + | Temperature | 36.8 C (98.2 F) | 05/17/2019 11:34 AM | | | | | PST | | + + + + + | Respiratory Rate | 14 | 05/17/2019 11:34 AM | | | | | PST | | + + + + + | Oxygen Saturation | - | - | | + + + + + | Inhaled Oxygen | - | - | | | Concentration | | | | + + + + + | Weight | 85 kg (187 lb 6.3 | 05/17/2019 11:34 AM | | | | oz) | PST | | + + + + + | Height | - | - | | + + + + + | Body Mass Index | 27.13 | 12/27/2018 9:52 AM | | | [...] documented as of this encounter Progress Notes Emmy Vanessa RN - 05/17/2019 11:35 AM PSTMet with patient today for nurse education. Verbal education given to patient regarding general radiation therapy side effects as well as site specific side effects, written educational hand outs declined as patient and a re familiar with radiation treatment, stated that they did not want the hand outs. Reviewed process of OTV day for their doctor, all questions at this time were answered. Carly Casarez MD - 05/17/2019 11:35 AM PST Radiation Oncology Weekly On Treatment Note Diagnosis: ICD-10-CM ICD-9-CM 1. Recurrent basal cell carcinoma C44.91 173.91 Reason for visit: On treatment evaluation Radiation technical factors: Dose Delivered Dose Planned Fractions Delivered 550 cGy 5500 cGy 08/23 Images were reviewed this week and results [...] lisinopril (PRINIVIL, ZESTRIL) 10 mg tablet Take 10 mg by mouth Daily. omeprazole (PRILOSEC) 20 mg capsule Take 20 mg by mouth every morning (before breakfast ). No current facility-administered medications on file prior to encounter. Pain assessment: Location: Neck Pain Level: PAIN PROG PAIN LEVEL: 2 Pain Quality: Stable, Constant Current pain regimen: None, worse at night Wt Readings from Last 3 Encounters: 05/04/19 86 kg (189 lb 9.5 oz) 01/08/19 84 kg (185 lb 3 oz) 12/27/18 82.3 kg (181 lb 7 oz) Vitals: 05/17/19 1134 BP: 121/73 Pulse: 68 Resp: 14 Temp: 36.8 C (98.2 F) Weight: 85 kg (187 lb 6.3 oz) Physical Exam Skin: There is erythema (mild erytheam over treatment area. ). Nurse Assessment and Toxicity Grading: Toxicity Flowsheet 09/28/2018 Diarrhea 0 - Grade 0 Nausea 0 - Grade 0 Vomiting 0 - Grade 0 Fatigue 2 - Grade 2 Anorexia 2 - Grade 2 Palmar-Plantar Erythrodysesthesia Syndrome 2 - Grade 2 Karnofsky Performance Score 70% Physician Assessment: 05/17/19: Guilherme started radiation this week, he as mild rapid erythema. Continues to hav e pain at this left neck skin. Disposition: Continue radiation treatment as planned. Skin [...] ST | | | | | | [place] | | | | | | [address] | | | | | | | | +--------+ + + + + documented as of this encounter Visit Diagnoses + + | Diagnosis | + + | Recurrent basal cell carcinoma - Primary Basal cell carcinoma of skin, site | | unspecified | + + documented in this encounter
--- OUTSIDE RECORDS SUMMARY | ~2020-02-21 | XMS | Encounter Summary ---
Demographics + + + | Address | [address] | | | [place] [address] | + + + | Home Phone [...] [place], [place] | | | | | [address] | | + + + + + | Isabella "Tiki" | ECON | [address] | | | [place] | | [place], [place] | | | | | [address] | | + + + + + Care Team Providers + +------+ + | Care Security Coordinator Name | Role | Phone | + +------+ + | No, Physician | PCP | Unavailable | + +------+ + Reason for Visit + +--------+ + | Reason | Onset | Comments | | | Date | | + +--------+ + | Appointment | 11/27/ | | | | 2019 | | + +--------+ + Encounter Details +--------+ + + + + | Date | Type | Department | Care Team | Description | +--------+ + + + + | 11/27/ | Telephone | [facility] | Radhames Rdz | Appointment | | 2019 | | [address] | [address] | | | | | [place] | [place] | | | | | [address] | [place] [address] | | | | | [phone] | [phone] | | | | | | | [...] this encounter Miscellaneous Notes Telephone Encounter - Tracy Davies - 11/30/2019 2:07 PM PDTSPOKE WITH PTS FAMILY T O CONFIRM DATE AND TIME. elephone Encounter - Tracy Davies - 11/30/2019 1:51 PM PDTLVM TO CALL BACK TO CONF IF APPT WILL WORK FOR PT. 1 :52 PM PDTTelephone Encounter - Tracy Davies - 11/28/2019 5:07 PM PDTCALLED AND LVM FOR PT TO CALL BACK TO CONF APPT FOR 01/01/20 AT 10AM. PT UNAVAILABLE TO SCHEDULE AND LVM WI TH DATE AND TIME AND MAILED OUT APPT CARD. WILL FOLLOW UP WITH PT. elephone Encounter - Tracy Davies - 0 11/28/2019 5:06 PM PDT----- Message from Winifred Mraquez, Net Developer Architect sent at 020 1:31 PM PDT ----- Regarding: Needs one year follow up appt. Patient needs 1 year follow up appt ~ 12/28/19. 1 YEAR FOLLOW UP (Hematuria, hx of urolithiasis) PSA, BMP PRIOR ----- Message ----- From: Evon Burden Net Developer Architect Sent: 11/27/2019 To: Winifred Marquez Net Developer Architect Subject: needs one year follow up appt. Needs 1 year follow up appt ~12/28/2019 with labs prior. documented in this e ncounter Plan of Treatment +--------+ + + + + | Date | Type | Specialty | Care Team | Description | +--------+ + + + + | 03/26/ | Appointment | Radiation Oncology | Papito Alvarez MD | | | 2019 | | | [address] | | | | | | [place] | | | | | | [id number] | | | | | | | | +--------+ + + + + documented as of this encounter Visit Diagnoses Not on filedocumented in this encounter
--- OUTSIDE RECORDS SUMMARY | ~2020-02-21 | XMS | Encounter Summary ---
Demographics + + + | Address | [address] | | | [place] [address] | + + + | Home Phone | | + + + | Preferred Language | Unknown | + + + | Marital Status | | + + + | Druze Affiliation | Unknown | + + + | Race | White | + + + | Ethnic Group | Not or | + + + Author + + + | Author | [facility] | | | and [place] | + + + | Organization | [facility] | | [...] [place], [place] | | | | | [address] | | + + + + + | Isabella "Tiki" | ECON | [address] | | | [place] | | [place], [place] | | | | | [address] | | + + + + + Care Team Providers + +------+ + | Care Database Support Name | Role | Phone | + [...] | +--------+ + + + + | 09/14/ | Hospital | [facility] | Ashu Singh DO | Recurrent basal cell | | 2019 | Encounter | [facility] | [address] | carcinoma (Primary | | | | [facility] [address] | [place] | Dx) | | | | [address] | [address] | | | | | [place] [address] | | | | | | [phone] | | | +--------+ + + + [...] + + + | Blood Pressure | 138/69 | 09/14/2018 11:04 AM | | | | | PDT | | + + + + + | Pulse | 60 | 09/14/2018 11:04 AM | | | | | PDT | | + + + + + | Temperature | 37.2 C (99 F) | 09/14/2018 11:04 AM | | | | | PDT | | + + + + + | Respiratory Rate | 18 | 09/14/2018 11:04 AM | | | | | PDT | | + + + + + | Oxygen Saturation | 96% | 09/14/2018 11:04 AM | | | | | PDT | | + + + + + | Inhaled Oxygen | - | - | | | Concentration | | | | + + + + + | Weight | 83.5 kg (184 lb 1.4 | 09/14/2018 11:04 AM | | | | oz) | PDT | | + + + + + | Height | - | - | | + + + + + | Body Mass Index | 26.65 | 08/01/2018 1:01 PM | | | [...] | | Take 1-2 tablets by | 90 | 0 | 09/08/19 | | | HYDROcodone-acetamin | mouth every 6 hours | tablet | | 19 | 9 | | ophen (NORCO) 5-325 | as needed for Pain. | | [...] as of this encounter Progress Notes Ashu Singh, - 09/14/2018 12:20 PM PDT Radiation Oncology Weekly On Treatment Note Diagnosis: ICD-10-CM ICD-9-CM 1. Recurrent basal cell carcinoma C44.91 173.91 Reason for visit: On treatment evaluation Radiation technical factors: Dose Delivered Dose Planned Fractions Delivered 2200 cGy 5500 cGy 02/20 Setup was verified clinically on the treatment machine. Corrections were applied as necess raul. No Known Allergies Current Outpatient Prescriptions on File Prior to Encounter Medication Sig Dispense Refill aspirin 81 mg chewable tablet Take 81 mg by mouth Daily. atorvaSTATin (LIPITOR) 20 mg tablet Take 20 mg by mouth nightly. gabapentin (NEURONTIN) 300 mg capsule Take 3 capsules by mouth 3 times daily. 270 capsu le 0 HYDROcodone-acetaminophen (NORCO) 5-325 mg per tablet Take 1-2 tablets by mouth every 6 hours as needed for Pain. (Patient taking differently: Take 1-2 tablets by mouth every 4 ho urs as needed for Pain.) 90 tablet 0 lisinopril-hydrochlorothiazide (PRINZIDE,ZESTORETIC) 10-12.5 MG per tablet Take 1 table t by mouth Daily. omeprazole (PRILOSEC) 20 mg capsule Take 20 mg by mouth every morning (before breakfast ). No current facility-administered medications on file prior to encounter. Pain assessment: Location: Left neck Pain Level: PAIN PROG PAIN LEVEL: 3 Pain Quality: Stable Current pain regimen: [place] 5/325 2 tabs 3 times a day Wt Readings from Last 3 Encounters: 09/14/18 83.5 kg (184 lb 1.4 oz) 09/07/18 82.4 kg (181 lb 10.5 oz) 08/01/18 79 kg (174 lb 2.6 oz) Vitals: 09/14/18 1104 BP: 138/69 Pulse: 60 Resp: 18 Temp: 37.2 C (99 F) TempSrc: Temporal SpO2: 96% Weight: 83.5 kg (184 lb 1.4 oz) Physical Exam Constitutional: He is oriented [...] Assessment: Overall, he is tolerating treatment well. Gabapentin has been increased to 900 3 times a d ay and he is tolerating this well with no significant pruritus. [place] has been titrated to 2 tabs 3 times a day leading to improved overall pain control. Toxicities reviewed in nursing note. Disposition: Continue radiation treatment as planned. Ashu Singh DO Radiation Oncologist Emmy Cantu RN - 09/14/2018 11:18 AM PDT 09/14/18 1117 Gastrointestinal Nausea 0 - Grade 0 Vomiting 0 - Grade 0 General Disorders and Administration Site Conditions Fatigue 1 - Grade 1 Performance Status Karnofsky Performance Score 70% documented in this encounter Plan of Treatment +--------+ + + + + | Date | Type | Specialty | Care Team | Description | +--------+ + + + + | 03/26/ | Appointment | Radiation Oncology | Papito Alvarez MD | | | 2019 | | | [address] | | | | | | [place] | | | | | | [address] | | | | | | | | +--------+ + + + + documented as of this encounter Visit Diagnoses + + | Diagnosis | + + | Recurrent basal cell carcinoma - Primary Basal cell carcinoma of skin, site | | unspecified | + + documented in this encounter
--- OUTSIDE RECORDS SUMMARY | ~2020-02-21 | XMS | Encounter Summary ---
Demographics + + + | Address | [address] | | | [place] [address] | + + + | Home Phone | | + + + | Preferred Language | Unknown | + + + | Marital Status | | + + + | Baptism Affiliation | NRP | + + + | Race | White | + + + | Ethnic Group | Not or | + + + Author + + + | Author | [facility] | + + + | Organization | [facility] | + + + | Address | Unknown | + + + | Phone | Unavailable | + + + Support + + + + + | Name | Relationship | Address | Phone | + + + + + | Alanna Merino | DAT | [address] | | | | | [address] | | | | | [address] | | + + + + + Care Team Providers + +------+ + | Care Diabetes Educator Name | Role | Phone | + +------+ + | Washington Mason MD | PCP | | + +------+ + Reason for Visit + + + | Reason | Comments | + + + | Mohs' operation, | | | chemosurgical | | | excision of skin | | + + + Encounter Details +--------+ + + + + | Date | Type | Department | Care Team | Description | +--------+ + + + + | 12/23/ | Procedure | Surgical | Steve De La Cruz MD | Mohs' operation, | | 2008 | | Dermatology [address] | | chemosurgical | | | | [place] Mailcode: | | excision of skin | | | | [id number] | | | | | | [facility], | | | | | | [facility] [address], | | | | | | Floor [place], [place] | | | | | | [address] | | | | | | [phone] | | | +--------+ + + + [...] this encounter Last Filed Vital Signs + +---------+ + + | Vital Sign | Reading | Time Taken | Comments | + +---------+ + + | Blood Pressure | 140/80 | 12/23/2008 8:46 AM | | | | | PDT | | + +---------+ + + | Pulse | 80 | 12/23/2008 8:46 AM | | | | | PDT | | + +---------+ + + | Temperature | - | - | | + +---------+ + + | Respiratory Rate | 18 | 12/23/2008 8:46 AM | | | | | PDT | | + +---------+ + + | Oxygen Saturation | - | - | | + +---------+ + + | Inhaled Oxygen | - | - | | | Concentration | | | | + +---------+ + + | Weight | - | - | | + +---------+ + + | Height | - | - | | + +---------+ + + | Body Mass Index | - | - | | + +---------+ + + documented in this encounter Patient Instructions Patient Instructions Kelsi Bird MD - 12/23/2008 2:57 [facility] -Apply ice over the surgical site 10 minutes for every hour for the first day. -Avoid aspirin, ibuprofen, alcohol and smoking for the next 5 days. -Reduce strenuous activity for the next week. -Do not get bandage wet. Change bandage in 24 hours. -Take Tylenol, 2 tablets every 4-6 hours as needed for pain: not to exceed 3 grams in one 2 4 hours period; or prescription as directed. -For wounds on the arms or legs, keep site elevated above the heart for the next 24 hours. -For lip wounds, avoid hard, crunchy food for several days. Expect swelling for up to 1 wee k. -If bleeding occurs, hold direct pressure for 20 minutes. If the bleeding does not discont inue, please call the office. Suture/Staple Wound Care Clean line of stitches or liborio daily with soap and water. The area should be clear of an y drainage or crusts. Apply petrolatum ointment to suture/staple line. Do not cover if possible. If needed, you may cover with Telfa and tape into place. When uncovered, reapply ointment throughout day to keep moist with layer at all times. You may get the area wet in the shower after bandage is removed, however, do not let the wa ter hit the wound directly. Pat the area dry after showering, and reapply ointment. If you have steri-strips then replace them when they fall off in approximately 10-14 days. You may get the area wet. What to Expect------Sutured/Stapled Wounds You may experience numbness that is usually temporary. There will be bruising and swelling that can last between 1 and 2 weeks. Areas of the mouth and eye may last longer. The sutured area will be pink, swollen and tender for the first few days. The area should l ook and feel better each day after this point. Skin near the surgery site may appear and feel tight. This relaxes in time. A scar is stron g at 30 days, but not mature for 6 months or more. Stitches below the skin will be absorbed by the body within 2-3 months. Sometimes a stitch works its way up through the skin; this is not necessarily a problem. If you have any questions about this, please call. Call the Office If... a. any of the bandages become saturated with blood. If your site bleeds, hold direct press ure for 20 minutes and phone the clinic. b. you are having a great deal of pain, not relieved by Tylenol or your prescription medic ation. Pain after 48 hours is not expected. c. the wound appears to be worse instead of better each day (Increased pain, redness, warm th and drainage) d. your graft bandage becomes wet with drainage or is more painful than the day before How to Reach [phone] Toll-free [phone] Evenings and Weekends: [phone] documented in this encounter Progress Notes Lia Montague - 12/24/2008 1:19 PM PDTAddended by: LIA MONTAGUE on: 12/24/2008 1: 19 PM Modules accepted: Marci Varela Ken, MD - 12/23/2008 7:39 PM PDT Addended b y: STEVE DE LA CRUZ MD on: 12/23/2008 Modules accepted: Level of Service Steve De Leon MD - 12/23/2008 7:36 PM PDTATTENDING PHYSICIAN ATTESTATION I interviewed and examined the patient and discussed the case with the Fellow/Resident. I agree with their findings and plan as written. Using a mirror, the patient identified the site of the proposed surgery. I marked the site and the patient confirmed the location using a mirror. The nature of the diagnosis was discussed with the patient and the details of the procedure , alternatives, risks were discussed with the patient and all questions were answered. Speci fically risks including but not limited to infection, bleeding, recurrence, nerve damage, s carring and poor cosmetic result were explained and the patient expressed understanding. ATTENDING ATTESTATION: I have reviewed the written procedure note and I certify my performance of the procedure. elsi Bird MD - 12/24/19 09 5:34 PM PDTChief Complaint: Basal Cell Carcinoma located on the left anterior lateral ne ck and left posterior lateral neck. Referring Physician: Tony History of Present Illness: Patient presents with the above diagnosis which has been prese nt for over 1 year. Previous treatments include Mohs surgery in 2001. Past history of othe r skin cancers yes. Past Medical History reviewed. Review of Systems: Negative for other skin complaints. Negative for constitutional sympto ms. Physical Examination: BP 140/80 | Pulse 80 | Resp 18 Patient is alert and oriented. Extra ocular movements are intact. Located on the left ant erior lateral neck and left posterior lateral neck are scaly erythematous plaques. There is no palpable lymphadenopathy. Assessment and Plan: Recurrent Basal Cell Carcinoma located on the left anterior lateral ne ck and left posterior lateral neck.. Mohs micrographic surgery is indicated because of location, ill-defined borders and recurre nce. The procedure and alternatives were discussed, questions were answered and the risks includ ing but not limited to infection, bleeding, scarring, unsatisfactory results, nerve damage a nd recurrence were explained. The patient felt comfortable and wished to proceed with Mohs surgery later on today. MOHS MICROGRAPHIC SURGERY PROCEDURE NOTE A) left anterior lateral neck SURGEON: Steve De La Cruz M.D. BALLROOM DANCE INSTRUCTOR: Boy Gomes MD and Kelsi Bird MD ASSESSMENT: Taken and Recorded INDICATIONS: Guilherme Merino is a 53 y.o. male who presents with recurrent basal cell carc inoma located on the left anterior lateral neck, with a pretreatment lesion size of 4.0 x 1. 5 cm. Because of the size, site, poorly defined bordersand diagnosis of the lesion, it is f elt that it is best treated with Mohs micrographic surgery. Alternative surgical and nonsur gical therapies were discussed. The risks including but not limited to bleeding, infection, scarring, nerve damage, unsatisfactory results, and recurrence were explained to the patien t prior to obtaining written and verbal informed consent for Mohs surgery. STAGE 1: The patient was placed supine on the operating room table. The wound was defined and infiltrated with 1% Lidocaine with Epinephrine. The area was then debulked. Initial ex cisions were made around the clinical and debulk markings and hemostasis was obtained by johana ctrodessication. A dressing was placed. Tissue was divided into 4 specimens which were map ped, color coded at their margins, and frozen sectioning was performed. Microscopic tumor wa s found persisting in 4 of the specimens. The histology showed large atypical basaloid pleo morphic cells extending into the papillary dermis. STAGE 2: The patient was returned to the operative suite. The area of positivity was deli neated, infiltrated with 1% Lidocaine with Epinephrine, and excised. Tissue was divided int o 4 specimens which were again marked, color-coded, and frozen sectioning was performed. He mostasis was obtained in the usual manner, and a dressing placed. Microscopic tumor were fou nd persisting in 4 of the specimens. Histology was similar to stage 1. STAGE 3: The patient was returned to the operative suite. The area of positivity was deli neated, infiltrated with 1% Lidocaine with Epinephrine, and excised. Tissue was divided int o 3 specimens which were again marked, color-coded, and frozen sectioning was performed. H emostasis was obtained in the usual manner, and a dressing placed. Microscopic tumor was fo und persisting in none of the specimens. With the lesion clear of microscopic tumor, surge ry was considered complete. Following surgery, the defect, which involved the Mohs defect f rom lesion B (see below) was a total of 12cm x 6cm. MOHS MICROGRAPHIC SURGERY PROCEDURE NOTE A) left posterior lateral neck SURGEON: Steve De La Cruz M.D. BALLROOM DANCE INSTRUCTOR: Boy Gomes MD and Kelsi Bird MD ASSESSMENT: Taken and Recorded INDICATIONS: Guilherme Merino is a 53 y.o. male who presents with recurrent basal cell carc inomalocated on the left posterior lateral neck, with a pretreatment lesion size of 5.0 x 3 .0 cm. Because of the size, site, poorly defined bordersand diagnosis of the lesion, it is felt that it is best treated with Mohs micrographic surgery. Alternative surgical and nons urgical therapies were discussed. The risks including but not limited to bleeding, infectio n, scarring, nerve damage, unsatisfactory results, and recurrence were explained to the leanna ent prior to obtaining written and verbal informed consent for Mohs surgery. STAGE 1: The patient was placed supine on the operating room table. The wound was defined and infiltrated with 1% Lidocaine with Epinephrine. The area was then debulked. Initial ex cisions were made around the clinical and debulk markings and hemostasis was obtained by johana ctrodessication. A dressing was placed. Tissue was divided into 7 specimens which were map ped, color coded at their margins, and frozen sectioning was performed. Microscopic tumor wa s found persisting in 6 of the specimens. The histology showed large atypical basaloid pleo morphic cells extending into the papillary dermis. STAGE 2: The patient was returned to the operative suite. The area of positivity was deli neated, infiltrated with 1% Lidocaine with Epinephrine, and excised. Tissue was divided int o 6specimens which were again marked, color-coded, and frozen sectioning was performed. Hem ostasis was obtained in the usual manner, and a dressing placed. Microscopic tumor were foun d persisting in 2 of the specimens. Histology was similar to stage 1. STAGE 3: The patient was returned to the operative suite. The area of positivity was deli neated, infiltrated with 1% Lidocaine with Epinephrine, and excised. Tissue was divided int o 3 specimens which were again marked, color-coded, and frozen sectioning was performed. H emostasis was obtained in the usual manner, and a dressing placed. Microscopic tumor was fo und persisting in none of the specimens. With the lesion clear of microscopic tumor, surge ry was considered complete. Following surgery, the defect measures as follows: 12 cm x 6 cm (combined with A, see above) FINAL DIAGNOSIS: recurrent basal cell carcinoma of the left anterior lateral neck and left posterior lateral neck. CONDITION AT TERMINATION OF THERAPY: Carcinoma removed. Patient reports no pain after the procedure. RECONSTRUCTION PROCEDURE NOTE COMPLEX LINEAR LAYERED CLOSURE SURGEON: Steve De La Cruz M.D. BALLROOM DANCE INSTRUCTOR: Boy Gomes MD and Kelsi Bird MD Prior to beginning the procedure, patient identity was verified, as well as the procedure t o be performed and the site. All equipment required was ready and available. The patient wa s positioned appropriately. INDICATIONS: The patient was left with a 12 x 6 cm defect on the left anterior and posteri or lateral neck following removal of a basal cell carcinoma with Mohs micrographic surgery. Various reconstructive modalities were discussed with the patient, and it was decided that a complex linear layered closure would best preserve normal anatomical and functional relati onships. After a discussion of the risks including but not limited to bleeding, scarring, i nfection, nerve damage, unsatisfactory results, and wound dehiscense, informed consent was o btained, and the patient underwent the procedure as follows. PROCEDURE: The patient was taken to the operative suite and placed supine on the operating room table. The area was anesthetized with 1% Lidocaine with Epinephrine. The area was wash ed with Hibiclens, rinsed with sterile saline, and draped with sterile towels. The wound edg es were debeveled, and because of the tension the wound was undermined extensively in all di rections. Hemostasis was obtained with spot electrodessication. The deep subcutaneous tissue including fascia was re-approximated using 3-0 Polysorb buried sutures. The dermis was car efully reapproximated using 3-0 Polysorb buried sutures. Redundant cones were removed as Bur ow's triangles anterior and posterior to align with the relaxed skin tension lines in a curv ilinear fashion. The epidermis was closed and approximated using 5-0 Fast Absorbing Gut sut ures. A sterile pressure dressing was applied, and wound care instructions were given. Viktoria rodriguez wound length 14 cm. FINAL DIAGNOSIS: recurrent basal cell carcinoma of the left anterior and posterior lateral neck. FINAL PROCEDURE: Complex linear layered closure COMPLICATIONS: None Patient reports no pain after the procedure. Billy Medellin - 12/03 8:58 AM [id number] 2gm po given per vo KL with readback. documented in this encounter Plan of Treatment + + +--------+ + + | Name | Type | Priori | Associated Diagnoses | Order Schedule | | | | ty | | | + + +--------+ + + | [place] MOHS,1 | Procedures | Routin | Other Malignant | Ordered: 12/23/2008 | | STAGE,H/N/HF/G | | e | Neoplasm of Scalp | | | | | | and Skin of Neck | | + + +--------+ + + | [place] MOHS ADDL STAGE | Procedures | Routin | Other Malignant | Ordered: 12/23/2008 | | | | e | Neoplasm of Scalp | | | | | | and Skin of Neck | | + + +--------+ + + | [place] REPR CMPL WND | Procedures | Routin | Other Malignant | Ordered: 12/23/2008 | | HEAD,FAC,HAND | | e | Neoplasm of Scalp | | | 2.6-7.5 | | | and Skin of Neck | | + + +--------+ + + | [place] | Procedures | Routin | Other Malignant | Ordered: 12/23/2008 | | REP,FACE,GENITAL,GILES | | e | Neoplasm of Scalp | | | D,FT+5CM/< | | | and Skin of Neck | | + + +--------+ + + documented as of this encounter Visit Diagnoses + + | Diagnosis | + + | Other and unspecified malignant neoplasm of scalp and skin of neck - Primary | + + documented in this encounter"
--- OUTSIDE RECORDS SUMMARY | ~2020-02-21 | XMS | Encounter Summary ---
Demographics + + + | Address | [address] | | | [place] [address] | + + + | Home Phone | | + + + | Preferred Language | Unknown | + + + | Marital Status | | + + + | Zoroastrian Affiliation | Unknown | + + + | Race | White | + + + | Ethnic Group | Not or | + + + Author + + + | Author | [facility] | | | and [place] | + + + | Organization | [facility] | | | and [...] [place], [place] | | | | | [address] | | + + + + + | Isabella "Tiki" | ECON | [address] | | | [place] | | [place], [place] | | | | | [address] | | + + + + + Care Team Providers + +------+ + | Care Shovel Loader Operator Name | Role | Phone | + +------+ + | Alen Bolanos MD | PCP | | + +------+ + Encounter Details +--------+ + + + + | Date | Type | Department | Care Team | Description | +--------+ + + + + | 08/01/ | Hospital | [facility] | Ashu Singh DO | | | 2019 | Encounter | MED CTR RADIATION | [address] | | | | | ONCOLOGY [address] | [place] | | | | | [place], | [address] | | | | | [place] [address] | | | | | | [phone] | | | +--------+ + + + [...] [place] | | | | | | [address] | | | | | | | | +--------+ + + + + documented as of this encounter Visit Diagnoses Not on filedocumented in this encounter
--- OUTSIDE RECORDS SUMMARY | ~2020-02-21 | XMS | Encounter Summary ---
Demographics + + + | Address | [address] | | | [place] [address] | + + + | Home Phone | | + + + | Preferred Language | Unknown | + + + | Marital Status | | + + + | Mandaeism Affiliation | NRP | + + + | Race | White | + + + | Ethnic Group | Not or | + + + Author + + + | Author | [facility] | + + + | Organization | [facility] | + + + | Address | Unknown | + + + | Phone | Unavailable | + + + Support + + + + + | Name | Relationship | Address | Phone | + + + + + | Alanna Merino | DAT | [address] | | | | | [address] | | | | | [address] | | + + + + + Care Team Providers + +------+ + | Care Manager Of Program Name | Role | Phone | + +------+ + | No Pcp Per Patient | PCP | Unavailable | + +------+ + Encounter Details +--------+ + + + + | Date | Type | Department | Care Team | Description | +--------+ + + + + | 05/15/ | Document-Sc | NON-[facility] EP[facility] | Washington Mason | | | 2018 | carole | Department | MD JOSE Caldwell | | | | | | [facility] | | | | | | [address] | | | | | | [place] [address] | | | | | | [phone] | | | | | | | [...]
--- OUTSIDE RECORDS SUMMARY | ~2020-02-21 | XMS | Encounter Summary ---
Demographics + + + | Address | [address] | | | [place] [address] | + + + | Home Phone | | + + + | Preferred Language | Unknown | + + + | Marital Status | | + + + | Jewish Affiliation | NRP | + + + | Race | White | + + + | Ethnic Group | Not or | + + + Author + + + | Author | [facility] | + + + | Organization | [facility] | + + + | Address | Unknown | + + + | Phone | Unavailable | + + + Support + + + + + | Name | Relationship | Address | Phone | + + + + + | Alanna Merino | DAT | [address] | | | | | [address] | | | | | [address] | | + + + + + Care Team Providers + +------+ + | Care Php Website Developer Name | Role | Phone | + [...] | | | | [address] | [facility] [place] | | | | | Mailcode: OP06 | [address] | | | | | Outpatient Clinic | [phone] | | | | | [facility], Room [address] | | | | | | [place], [place] | | | | | | [address] | | | | | | [phone] | | | +--------+ + + + [...] | | | | | MNT) | [id number] OF | | | | | | SPECIMEN:B FIRST TISSUE | | | | | | [place] [address] | | | | | | CLINICAL [...] INFLAMMATION. | | | | | | CRW/jyi05/04/2002Renderin | | | | | | g Diagnostician: | | | | | | Florencio Nagy Jr., | | | | | | M.DCheriPathologistElectroni | | | | | | mirna Signed | | | | | | 05/04/2002Comment: | | | | | | SOURCE OF SPECIMEN: | | | | | | FIRST TISSUE [place]EVEL IV | | | | | | [id number] TISSUE [place] | | | | | | [place] [address] | | | | + + + + + + + + | Specimen | + + | | + + + + + + + | Performing | Address | City/State/Zipcode | Phone Number | | Organization | | | | + + + + + | [facility] | [address] | [place] [address] | | | DERMATOPATHOLOGY | [address] | | | + + + + + documented in this encounter Visit Diagnoses Not on filedocumented in this encounter"
--- OUTSIDE RECORDS SUMMARY | ~2020-02-21 | XMS | Encounter Summary ---
Demographics + + + | Address | [address] | | | [place] [address] | + + + | Home Phone | | + + + | Preferred Language | Unknown | + + + | Marital Status | | + + + | Confucianist Affiliation | NRP | + + + | Race | White | + + + | Ethnic Group | Not or | + + + Author + + + | Author | [facility] | + + + | Organization | [facility] | + + + | Address | Unknown | + + + | Phone | Unavailable | + + + Support + + + + + | Name | Relationship | Address | Phone | + + + + + | Alanna Merino | DAT | [address] | | | | | [address] | | | | | [address] | | + + + + + Care Team Providers + +------+ + | Care Act English Tutor Name | Role | Phone | + [...] | | | | [address] | [facility] [place] | | | | | Mailcode: OP06 | [address] | | | | | Outpatient Clinic | [phone] | | | | | [facility], Room [address] | | | | | | [place], [place] | | | | | | [address] | | | | | | [phone] | | | +--------+ + + + [...] | | | | | MNT) | [id number] OF | | | | | | SPECIMEN:B FIRST TISSUE | | | | | | [place] [address] | | | | | | CLINICAL [...] IV | | | | | | [id number] TISSUE LEVEL | | | | | | [place] [address] | | | | + + + + + + + + | Specimen | + + | | + + + + + + + | Performing | Address | City/State/Zipcode | Phone Number | | Organization | | | | + + + + + | [facility] | Mailcode [address] | [place] [address] | | | DERMATOPATHOLOGY | [address] | | | + + + + + documented in this encounter Visit Diagnoses Not on filedocumented in this encounter"
--- OUTSIDE RECORDS SUMMARY | ~2020-02-21 | XMS | Encounter Summary ---
Demographics + + + | Address | [address] | | | [place] [address] | + + + | Home Phone [...] + + | Author | [facility] | | | and [place] | + + + | Organization | [facility] | | | and [...] [place], [place] | | | | | [address] | | + + + + + | Isabella "Tiki" | ECON | [address] | | | [place] | | [place], [place] | | | | | [address] | | + + + + + Care Team Providers + +------+ + | Care Flux Core Welder Name | Role | Phone | + +------+ + | No, Physician | PCP | Unavailable | + +------+ + Reason for Visit +---------+--------+ + | Reason | Onset | Comments | | | Date | | +---------+--------+ + | Results | 07/15/ | | | | 2019 | | +---------+--------+ + Encounter Details +--------+ + + + + | Date | Type | Department | Care Team | Description | +--------+ + + + + | 01/15/ | Telephone | [facility] | Radhames Rdz | Results | | 2019 | | [address] | MD [address] | | | | | [address] | [place] | | | | | [address] | [place] [address] | | | | | [phone] | [phone] | | | | | | | [...] this encounter Miscellaneous Notes Telephone Encounter - Winifred Marquez Medical Assistant - 01/15/2019 2:44 PM PDTNotifi ed. She verbalized understanding and had no further questions at this time. el ephone Encounter - Winifred Marquez Medical Assistant - 01/15/2019 1:36 PM PDTLeft klarissa moore to call back. elephone Encounter - Winifred Marquez Medical Assistant - 01/15/2019 1:36 PM PDT----- Message from Radhames Rdz MD sent at 01/11/2019 8:07 PDT ----- Please call Guilherme, and let him know that his urine test looking for cancer cells was also negative. Good news! Thanks. documented in this encounter Plan of Treatment [...] [place] | | | | | | [address] | | | | | | | | +--------+ + + + + documented as of this encounter Visit Diagnoses Not on filedocumented in this encounter
--- OUTSIDE RECORDS SUMMARY | ~2020-02-21 | XMS | Encounter Summary ---
Demographics + + + | Address | [address] | | | [place] [address] | + + + | Home Phone | | + + + | Preferred Language | Unknown | + + + | Marital Status | | + + + | Restorationism Affiliation | NRP | + + + | Race | White | + + + | Ethnic Group | Not or | + + + Author + + + | Author | [facility] | + + + | Organization | [facility] | + + + | Address | Unknown | + + + | Phone | Unavailable | + + + Support + + + + + | Name | Relationship | Address | Phone | + + + + + | Alanna Merino | DAT | [address] | | | | | [address] | | | | | [address] | | + + + + + Care Team Providers + +------+ + | Care Pharmacy Informaticist Name | Role | Phone | + +------+ + PCP | Unavailable | + +------+ + Encounter Details +--------+ + + + + | Date | Type | Department | Care Team | Description | +--------+ + + + + | 06/14/ | Letter-Mark | [facility] | Letter, [...] as of this encounter Progress Notes 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 Jimenez OPO 6 Dermatology Re: Guilherme Merino [id number] Jimenez, Thank you for referring Guilherme Merino regarding the recurrent sclerosing type basal cell carcinoma. The tumor has now been removed using Mohs micrographic surgery. The resultant defect was repaired using a full thickness skin graft. Copies of our operative reports are enclosed for your records. They should be self-explanatory. The patient will be returning in one week for suture removal and surgical follow up. Sincerely, Camron Coon M.D. Professor and Chair, Dermatology JEREMÍAS/reena A documented in this encounter Plan of Treatment Not on filedocumented as of this encounter Visit Diagnoses Not on filedocumented in this encounter"
--- OUTSIDE RECORDS SUMMARY | ~2020-02-21 | XMS | Encounter Summary ---
Demographics + + + | Address | [address] | | | [place] [address] | + + + | Home Phone | | + + + | Preferred Language | Unknown | + + + | Marital Status | | + + + | Baptism Affiliation | Unknown | + + + | Race | White | + + + | Ethnic Group | Not or | + + + Author + + + | Author | [facility] | | | and [place] | + + + | Organization | [facility] | | | [...] [place], [place] | | | | | [address] | | + + + + + | Isabella "Tiki" | ECON | [address] | | | [place] | | [place], [place] | | | | | [address] | | + + + + + Care Team Providers + +------+ + | Care Pie Dough Roller Name | Role | Phone | + +------+ + | No, Physician | PCP | Unavailable | + +------+ + Reason for Visit + +--------+ + | Reason | Onset | Comments | | | Date | | + +--------+ + | Medication Refill | 05/30/ | | | | 2018 | | + +--------+ + Encounter Details +--------+--------+ + + + | Date | Type | Department | Care Team | Description | +--------+--------+ + + + | 05/30/ | Refill | [facility] | Carly Jaime | Medication Refill | | 2018 | | MED CTR RADIATION | MD Paulette [address] | | | | | ONCOLOGY CLINIC [address] | [place], [place] | | | | | [facility] | [address] | | | | | [place] [address] | | | | | | [phone] | | | +--------+--------+ + + + [...] [place] | | | | | | [address] | | | | | | | | +--------+ + + + + documented as of this encounter Visit Diagnoses + + | Diagnosis | + + | Basal cell carcinoma (BCC) of skin of neck | + + documented in this encounter
--- OUTSIDE RECORDS SUMMARY | ~2020-02-21 | XMS | Clinical Summary ---
Demographics + + + | Address | [address] | | | [place] [address] | + + + | Home Phone | | + + + | Preferred Language | Unknown | + + + | Marital Status | | + + + | Restoration Affiliation | Unknown | + + + [...] [place], [place] | | | | | [address] | | + + + + + | Isabella "Tiki" | ECON | [address] | | | [place] | | [place], [place] | | | | | [address] | | + + + + + Care Team Providers + +------+ + | Care Potato Chip Sorter Name | Role | Phone | + [...] , | | 4/5. Has been intermittent. [place]-dark red blood observed, no | | clots. [...] + + + + + | Overview: [id number] care recs 10/09:Cleanse wound gently with | | warm wet gauze. [place] periwound skin with Cavilon skin prep. | [...] + + | 11/27/ | Telephone | Urology | Radhames Rdz | Appointment | | 2020 | | | MD [address] | | [...] [place] | | | | | | [address] | | | | | | | [...] +--------+ +---------+--------+ | MEDICARE | MEDICA | [id number] | | [phone] | | Medica | | | RE | | 019-Pr | 5 | | re | | | PART A | | esent | | | | | | AND B | | | | | | + +--------+ +--------+ +---------+--------+ | | TRICAR | [id number] | | [phone] | | Indemn | [...] fransisca | | | 4 (Home) | [address] | + +--------+ +--------+ + + Advance Directives + + + + + | Type | Date Recorded | Patient | Explanation | | | | Driver Guide | | + + + + + | Power of | | | | | Electronic Prepress System Operator | | | | + + + + + | Advance | | | | | Directive | | | | + + + + +
--- OUTSIDE RECORDS SUMMARY | ~2020-02-21 | XMS | Encounter Summary ---
Demographics + + + | Address | [address] | | | [place] [address] | + + + | Home Phone | | + + + | Preferred Language | Unknown | + + + | Marital Status | | + + + | Catholic Affiliation | NRP | + + + | Race | White | + + + | Ethnic Group | Not or | + + + Author + + + | Author | [facility] | + + + | Organization | [facility] | + + + | Address | Unknown | + + + | Phone | Unavailable | + + + Support + + + + + | Name | Relationship | Address | Phone | + + + + + | Alanna Merino | DAT | [address] | | | | | [address] | | | | | [address] | | + + + + + Care Team Providers + +------+ + | Care Customer Supply Coordinator Name | Role | Phone | + +------+ + | Washington Mason MD | PCP | | + +------+ + Reason for Visit +--------+ + | Reason | Comments | +--------+ + | Lesion | | +--------+ + Encounter Details +--------+---------+ + + + | Date | Type | Department | Care Team | Description | +--------+---------+ + + + | 11/07/ | Office | Dermatology | Tony, Hanna, | Neoplasm of | | 2009 | Visit | Medical at [facility] [address] | MD [address] | Unspecified Nature, | | | | [address] | [facility] [place] | Site Unspecified | | | | for Health and | [address] | (Primary Dx) | | | | [facility], [address], | [phone] | | | | | 16th Floor | | | | | | [place], [place] | | | | | | [address] | | | | | | [phone] | | | +--------+---------+ + + + [...] +---------+ + + | Blood Pressure | 120/72 | 11/07/2008 2:51 PM | | | | | PDT | | + +---------+ + + | Pulse | 68 | 11/07/2008 2:51 PM | | | | | PDT | | + +---------+ + + | Temperature | - | - | | + +---------+ + + | Respiratory Rate | 14 | 11/07/2008 2:51 PM | | | | | PDT | [...] +---------+ + + documented in this encounter Progress Notes Hanna Jimenez MD - 11/12/2008 4:44 AM PDT3 BX of large area that had sclerosing BCC re mpved in past 7 then recent Bx of SCC. Nw our 3 Bx = all BCC. Call & send to [facility] all signed by Hanna Jimenez MD at 11/12/2008 4:44 AM PDTParHanna booth MD - 11/08/19 09 3:30 PM PDTPrior to beginning the procedure, patient identity was verified, as well as t he procedure to be performed and the site. All equipment required was ready and available. The patient was positioned appropriately. Shave Biopsy- 3 sites in Skin around old scar from MOH's surgery site several years ago fo r BCC After PARQ addressed and scar factors discussed, the area was prepped with an isopropyl alc ohol pad. 1.5ml of 1% Lidocaine with Epinephrine was used for local anesthesia. A shave biop sy was performed and hemostasis obtained with Aluminum chloride. The site was dressed with p olysporin and a bandage. Verbal and written wound care instructions were given to the patien t. Patient reports no pain after the procedure. I was present for the entire procedure as described in the note for this encounter. HANNA JIMENEZ MD MEDICAL DERMATOLOGY [address] Mail Code: [address] [place] [address] [address] Mason that showed SCC in situ from 1 of these If our 3 additional Bx are all SCC insitu this area mite be candidate for Aldara Rx .ton1 Patient referred by No referring provider defined for this encounter. orth, Ck Hayden MD - 11/07/2008 3:02 PM PDTNew Patient Consult visit Reason for Consult: l neck lesion REFERRING PHYSICIAN: Dr. Mason ([place]) HISTORY OF PRESENT ILLNESS: Guilherme Merino is a 53 y.o. male with h/o sclerosing BCC on L neck s/p Mohs in 2001 referr ed for consultation about left neck lesion. Onset: notes last June there was increasing redness in scar. Was given antibiotics and steroid cream (can't recall name) to use on it. T here have been 2 biopsies in past [address] Mason, one of which showed cancer a nd the other just scar and inflammation. No pruritus. No pain. No other new or changing skin lesions Meds and Allegies listed in [facility] The patient intake was reviewed including medications, allergies, past health history, fami ly history, and social history. Pertinent findings are listed below: - Stroke 2004 - BCC 2001 left neck - neg FH of skin CA REVIEW OF SYSTEMS: As per HPI, otherwise denies fevers, chills, sweats, weight loss, other skin complaints. SOC HX: smoking 1 PPD, EtOH none PHYSICAL EXAMINATION: Gen: WDWN male, alert and appropriate, normal mood and affect. Patient's skin was examined, including scalp, face, eyelids, lips, ears, bilateral upper ex tremities, abdomen, chest, back, hands, nails, and the exam was only notable for the follow ing: -large scar covering entire lateral left neck with few foci of redness and scale in inferio r portion -multiple, benign-appearing, brown, well demarcated papules/macules of various size scatter ed on head, trunk and extremities Path results requested from referring MD showed: SCCis (site only says L neck) and lichenoi d dermatitis ASSESSMENT AND PLAN: 1. H/o sclerosing BCC on left lateral neck 2001 with multiple erythematous scaly papules ne ar or within scar. Pt was given multiple creams to treat this, but he is unsure the names (c ould have been efudex or aldara but these aren't familiar to pt). Will bx to eval for possib le recurrence of BCC or multiple SCCs or AKs. -Shave Biopsy to 3 Lesions all on L lateral neck - PARQ conf including scar factors discus sed. A- anterior B- superior C- inferior/posterior Photos taken for epic Prior to beginning the procedure, patient identity, procedure and sites were nae márquez. All equipment required was ready and available. The patient was positioned appropriately . The areas were prepped with an isopropyl alcohol pad. 1% lidocaine with epinepheri ne was used for anesthesia. Using a flex razor blade, the lesions were removed from the riana rounding skin. Hemostasis was achieved using aluminum chloride. The wounds were dressed wi th petrolatum and a bandage. Verbal and written wound care instructions were given to the p atient. Patient reported no pain after the procedures. -if SCCis consider aldara or efudex -Dr. Jimenez to f/u on result RTC: pend bx result Cristobal Luna MD Resident, Department of Dermatology [facility] documented in this e ncounter Plan of Treatment + + +--------+ + + | Name | Type | Priori | Associated Diagnoses | Order Schedule | | | | ty | | | + + +--------+ + + | [place] BIOPSY OF SKIN | Procedures | Routin | Neoplasm of | Ordered: 11/07/2008 | | LESION | | e | Unspecified Nature, | | | | | | Site Unspecified | | + + +--------+ + + | [place] BIOPSY, EACH | Procedures | Routin | Neoplasm of | Ordered: 11/07/2008 | | ADDED LESION | | e | Unspecified Nature, | | | | | | Site Unspecified | | + + +--------+ + + | [place] BIOPSY, EACH | Procedures | Routin | Neoplasm of | Ordered: 11/07/2008 | | ADDED LESION | | e | Unspecified Nature, | | | | | | Site Unspecified | | + + +--------+ + + documented as of this encounter Procedures + +--------+ + + + | Procedure Name | Priori | Date/Time | Associated Diagnosis | Comments | | | ty | | | | + +--------+ + + + | PATHOLOGY | | 10/24/2008 | | Results for this | | | | 12:00 AM | | procedure are in the | | | | PDT | | results section. | + +--------+ + + + | PATHOLOGY | | 08/13/2008 | | Results for this | | | | 12:00 AM | | procedure are in the | | | | PST | | results section. | + +--------+ + + + documented in this encounter Results PATHOLOGY (10/24/2008 12:00 AM PDT) + + + | Narrative | Performed At | + + + | | | + + + + + | Procedure Note | + + | Darby Faculty - 10/24/2008 12:00 AM PDT | | | + + PATHOLOGY (08/13/2008 12:00 AM PST) + + + | Narrative | Performed At | + + + | | | + + + + + | Procedure Note | + + | Deja Pastor - 08/13/2008 12:00 AM PST | | | + + documented in this encounter Visit Diagnoses + + | Diagnosis | + + | Neoplasm of unspecified nature, site unspecified - Primary | + + documented in this encounter"
--- OUTSIDE RECORDS SUMMARY | ~2020-02-21 | XMS | Encounter Summary ---
Demographics + + + | Address | [address] | | | [place] [address] | + + + | Home Phone [...] + + + | Author | [facility] | | | and [place] | + + + | Organization | [facility] | | | [...] [place], [place] | | | | | [address] | | + + + + + | Isabella "Tiki" | ECON | [address] | | | [place] | | [place], [place] | | | | | [address] | | + + + + + Care Team Providers + +------+ + | Care Air Bag Buffer Name | Role | Phone | + [...] + + | 08/11/ | Telephone | [facility] | Ashu Snigh DO | Other | | 2019 | | MED CTR MEDICAL | [address] [facility] | | | | | ONCOLOGY CLINIC [address] | [place] | | | | | [address] | [address] | | | | | [place] [address] | | | | | | [phone] | | | +--------+ + + + [...] week as they have to drive from [place] and she feels that th at would over stress him. Asks for call back @ either of these #'s [phone] Thank you CC Milagros Moran and Rad [...] [place] | | | | | | [address] | | | | | | | | +--------+ + + + + documented as of this encounter Visit Diagnoses Not on filedocumented in this encounter
--- OUTSIDE RECORDS SUMMARY | ~2020-02-21 | XMS | Encounter Summary ---
Demographics + + + | Address | [address] | | | [place] [address] | + + + | Home Phone | | + + + | Preferred Language | Unknown | + + + | Marital Status | | + + + | Druze Affiliation | NRP | + + + [...] [place] | | | | | [address] | | + + + + + Care Team Providers + +------+ + | Care Signal Maintenance Technician Name | Role | Phone | [...] Pharmacy | | | | | | [address] | | | | | | [place], [place] | | | | | | [address] | | | | | | [phone] | | | +--------+ + + + [...]
--- OUTSIDE RECORDS SUMMARY | ~2020-02-21 | XMS | Clinical Summary ---
Demographics + + + | Address | [address] | | | [place] [address] | + + + | Home Phone | | + + + | Preferred Language | Unknown | + + + | Marital Status | | + + + | Adventism Affiliation | NRP | + + + [...] + | Alanna Merino | ECON | [address] | | | | [address] | | | | | [address] | | + + + + + Care Team Providers + +------+ + | Care Supervisor Education Name | Role | Phone | + +------+ + | No Pcp Per Patient | PCP | Unavailable | + +------+ + Source Comments KRISTI is fully live on both [facility] Ambulatory and [facility] InPatient.[facility] Allergies No Known Allergies Medications + + + +---------+------+------+-------+ | Medication | Sig | Dispensed | Refills | Star | End | Statu | | | | | | t | Date | s | | | | | | Date | | | + + + +---------+------+------+-------+ | gabapentin 300 mg | Take 900 mg by mouth | | 0 | | | Activ | | oral capsule | three times daily. | | | | | e | + + + +---------+------+------+-------+ | | Take 1 tablet by | | 0 | | | Activ | | lisinopril-hydrochlo | mouth once daily. | | | | | e | | rothiazide 10-12.5 | | | | | | | | mg oral tablet | | | | | | | + + + +---------+------+------+-------+ | | Take 1-2 tablets by | | 0 | | | Activ | | HYDROcodone-acetamin | mouth every six | | | | | e | | ophen 10-325 mg oral | hours as needed. | | | | | | | tablet | | | | | | | + + + +---------+------+------+-------+ | aspirin 325 mg | Take 1 tablet by | 30 | 1 | 04/0 | | Activ | | oral tablet | mouth once daily. | tablet | | 9/20 | | e | | | | | | 19 | | | + + + +---------+------+------+-------+ | omeprazole 20 mg | Take 20 mg by mouth | | 0 | | | Activ | | oral capsule,delayed | once daily. | | | | | e | | release(DR/EC) | Administer 30 to 60 | | | | | | | | minutes before meals | | | | | | + + + +---------+------+------+-------+ | ATORVASTATIN 40 mg | TAKE 1 TABLET BY | 90 | 5 | 11/02 | | Activ | | oral tablet | MOUTH EVERY DAY | tablet | | 03/23 | | e | | | | | | 19 | | | + + + +---------+------+------+-------+ Active Problems + + + | Problem | Noted Date | + + + | Carotid stenosis, left | 10/09/2018 | + + + + + | Last Assessment & Plan: S/P stent placement 10/09/2018 | | - [...] | + + + + + | Last Assessment & Plan: Home lisinopril HCTZ combination held | | on presentation due to watershed ischemia. On Nicardipine post | | procedure- Restart lisinopril 10mg- Continue to hold | | Hydrochlorothiazide- Down titrate nicardipine as able with close | | watch for hypotension as would not want to hypoperfuse | | intracranially either. | + + + + + | Hematuria | 10/09/2018 | + + + + + | Last Assessment & Plan: Painless, Started , 10/06. Has | | been intermittent. [place]-dark red blood observed, no clots. UA | | with isolated red cells. Improving with hydration per patient and | | . - Bladder scan Q6H, straight cath PRN for PVR >450- | | Discussed with urology - unless passing obvious clots, considered | | as outpatient hematuria workup. Recommended following up UA, | | bladder scan. If apollo clots observed, can consider at CT | | urogram. | + + + + + | Urinary frequency | 10/09/2018 | + + + + + | Last Assessment & Plan: Monitor UOP, may need to consider | | checking urine sodium. - PVR for retention/incomplete voiding. | + + + + + | Acute ischemic left ICA stroke | 10/06/2018 | + + + + + | Last Assessment & Plan: SBP <140 | | PT,OT | | See Stent placement below | | SW stroke protocol | | Continue telemetry | | Outpatient stroke follow-up 1 month | + + + +---+ | Malignant neoplasm of skin | | + +---+ + + | Overview: ICD10 Last Assessment & Plan: Being followed by | | wound care for post-radiation coyle. Wound care recs 10/09:Cleanse | | wound gently with warm wet gauze. [place] periwound skin with | | Cavilon skin prep. Apply SpandGel pad to reddened area (can place | | SpandGel in the fridge for cool soothing temperature). SpandGel | | can be found on 13A or can be ordered from [employer]. Change PRN | | dryness.May consider topical Lidocaine gel for pain relief, but | | do not use SpandGel if using Lidocaine. Cover Lidocaine gel with | | Telfa non adherent dressing. | + + Social History + + [...] recent travel history available. | + + Last Filed Vital Signs + + + + + | Vital Sign | Reading | Time Taken | Comments | + + + + + | Blood Pressure | 115/79 | 11/09/2018 1:22 PM | | | | | PDT | | + + + + + | Pulse | 71 | 11/09/2018 1:22 PM | | | | | PDT | | + + + + + | Temperature | 37 C (98.6 F) | 10/10/2018 1:45 PM | | | | | PDT | | + + + + + | Respiratory Rate | 16 | 10/10/2018 1:45 PM | | | | | PDT | | + + + + + | Oxygen Saturation | 96% | 11/09/2018 1:22 PM | | | | | PDT | | + + + + + | Inhaled Oxygen | - | - | | | Concentration | | | | + + + + + | Weight | 78.5 kg (173 lb) | 11/09/2018 1:22 PM | | | | | PDT | | + + + + + | Height | 175.3 cm (5' 9") | 11/09/2018 1:22 PM | | | | | PDT | | + + + + + | Body Mass Index | 25.55 | 11/09/2018 1:22 PM | | | | | PDT | | + + + + + Plan of Treatment + + + + + | Health Maintenance | Due Date | Last Done | Comments | + + + + + | Pneumococcal | | | | | vaccination (1 of 2 | 9 | | | | - PCV13) | | | | + + + + + | Influenza (Flu) | | | | | vaccination (Season | 0 | | | | Ended) | | | | + + + + + Results Not on filefrom Last 3 Months Insurance +---------+--------+ +--------+ +---------+--------+ | Payer | Benefi | Subscriber | Effect | Phone | Address | Type | | | t Plan | ID | isaura | | | | | | / | | Dates | | | | | | Group | | | | | | +---------+--------+ +--------+ +---------+--------+ | DOMINGO | SANDY | [phone] | 10/07/19 | [phone] | | [place] | | | E WEST | | 19-Pre | 8 | | ity | | | | | sent | | | | | | HEALTH | | | | | | | | NET | | | | | | +---------+--------+ +--------+ +---------+--------+ + +--------+ +--------+ + + [...] [address] | | | al/Fam | | 1954 | [phone] | [place] | | | fransisca | | | 5 (Home) | [address] | | | | | | [phone] | | | | | | | 4 (Work) | | + +--------+ +--------+ + + Advance Directives + + + + + | Type | Date Recorded | Patient | Explanation | | | | Shore Working Supervisor | | + + + + + | Advance | | | | | Directives and | | | | | Living Will | | | | + + + + + | Power of | | | | | Enterostomal Therapy Nurse | | | | + + + + + + + + + + | Code Status | Date | Date | Comments | | | Activated | Inactivated | | + + + + + | Full Code | 10/06/2018 | 10/10/2018 | | | | 11:49 PM | 8:49 PM | | + + + + +
--- OUTSIDE RECORDS SUMMARY | ~2020-02-21 | XMS | Encounter Summary ---
Demographics + + + | Address | [address] | | | [place] [address] | + + + | Home Phone [...] + | Author | [facility] | | | and [place] | + + + | Organization | [facility] | | | [...] [place], [place] | | | | | [address] | | + + + + + | Isabella "Tiki" | ECON | [address] | | | [place] | | [place], [place] | | | | | [address] | | + + + + + Care Team Providers + +------+ + | Care Regional Dedicated Truck Driver Name | Role | Phone | + [...] [place] | | | | | | [place] [address] | [address] | | | | | | Phone: | Phone: | | | | | | [phone] | [phone] | | | | | | Fax: | Fax: | | | | | | [phone] | [phone] | +--------+ + + + + + [...] | [facility] [address] | [facility] [place] [facility] [place] | Dx) | | | | [address] | [address] | | | | | [place] [address] | | | | | | [phone] | | | +--------+ + + + [...] [place] | | | | | | [address] | | | | | | | [...]
--- OUTSIDE RECORDS SUMMARY | ~2020-02-21 | XMS | Encounter Summary ---
Demographics + + + | Address | [address] | | | [place] [address] | + + + | Home Phone | | + + + | Preferred Language | Unknown | + + + | Marital Status | | + + + | Amish Affiliation | Unknown | + + + [...] [place], [place] | | | | | [address] | | + + + + + | Isabella "Tiki" | ECON | [address] | | | [place] | | [place], [place] | | | | | [address] | | + + + + + Care Team Providers + +------+ + | Care High School Social Studies Tutor Name | Role | Phone | [...] + + | 12/27/ | Office | [facility] | Radhames Rdz | Hematuria, | | 2019 | Visit | [address] | MD [address] | unspecified type | | | | [place] | [place] | (Primary Dx); Benign | | | | [address] | [place] [address] | prostatic | | | | [phone] | [phone] | hyperplasia, | | | | | [...] documented in this encounter Progress Winifred Eastman, Division Traffic Superintendent - 12/27/2018 10:15 AM PDTFormatting of this note migh t be different from the original. Administrations This Visit gentamicin injection 80 mg Admin Date 12/27/2018 Action Given Dose 80 mg Route Intramuscular Administered By Winifred Marquez Division Traffic Superintendent Patient tolerated injection well........... Winifred Marquez CMA on 12/27/18 at 10:24 Sent urine to [facility] for cytology via alterations tailor with Reflex for UroVysion (FISH) if cytology [...] a past history of duty in the [employer] for 20 year s. He recently [...] This document was generated in part using Frankly Chat voice recognition software. Although ever y effort is made to edit the content, nursing program manager errors may occur. Occasional wrong word or [...] [place] | | | | | | [address] | | | | | | | [...] 1.001 - 1.030 | | | | [place], | | | | | | UA, [...] AN ADDENDUM REPORT ORDERING PHYSICIAN: Kend[place] | [place] [facility] | | Radhames HANNAH PATIENT NAME: [...] preparation was | | | performed by [facility], [address] [place] [address] | | | [place] [address] (Senior Litigation Paralegal: Charbel Cummings D.O.; CLIA#: | | | [id number]). Professional interpretation was performed by [facility] | | | [facility], [address], | | | [place], [place] [address] (Senior Litigation Paralegal: Adrián Porras MD; CLIA# | | | [id number]). REASON FOR ADDENDUM REPORT: FISH Analysis | [...] | | | have been determined by [facility]. Nuclei Scored: | | | 100 Probe Set: Chrom 3: EDMUND 3, Chrom 7: EDMUND 7, Chrom 17: EDMUND | | | 17, Chrom 9: p16 Scoring Method: Computer Assisted Technology CPT | | | Code: 35111 # of Units: 1 PERFORMING LABORATORY: All controls | | | were within expected ranges. The Technical Component Processing and | | | Analysis of this test was completed at [email or web address] [place], [address] | | | [place], [place] / [address] / [phone] / CLIA # | | | [id number]. / Senior Litigation Paralegal(s): Eusebio Mesa M.D.. The Professional | | | Component of this test was completed at [email or web address] [place], [facility] | | | [place] / [address] / [phone] / CLIA | | | #[id number] / Senior Litigation Paralegal(s): Nadege Dupree M.D. | | | (Accession / CaseNo: [id number] / [id number]) Detailed report kept on | | | file. [facility] FISH test uses either FDA cleared | | | and/or analyte specific reagent (ASR) probes. This test was developed | | | and its performance characteristics determined by [email or web address] | | | Laboratories. It has not [...] | | included within this report are high school admissions representative of the patient but not | [...] billed. | | | Diagnostician: Althea WILL ([facility]) Desktop Technician | | | Diagnostician: Adrián Porras MD [...]
--- OUTSIDE RECORDS SUMMARY | ~2020-02-21 | XMS | Encounter Summary ---
Demographics + + + | Address | [address] | | | [place] [address] | + + + | Home Phone | | + + + | Preferred Language | Unknown | + + + | Marital Status | | + + + | Yazidism Affiliation | Unknown | + + + | Race | White | + + + | Ethnic Group | Not or | + + + Author + + + | Author | [facility] | | | and [place] | + + + | Organization | [facility] | | | and [...] [place], [place] | | | | | [address] | | + + + + + | Isabella "Tiki" | ECON | [address] | | | [place] | | [place], [place] | | | | | [address] | | + + + + + Care Team Providers + +------+ + | Care Label Stitcher Name | Role | Phone | + [...] | | [facility]OG[facility] CL[facility] [address] | [place] | | | | | [address] [place] | [address] | | | | | [place] [address] | | | | | | [phone] | | | +--------+ + + + [...] [place] | | | | | | [address] | | | | | | | | +--------+ + + + + documented as of this encounter Visit Diagnoses Not on filedocumented in this encounter
--- OUTSIDE RECORDS SUMMARY | ~2020-02-21 | XMS | Encounter Summary ---
Demographics + + + | Address | [address] | | | [place] [address] | + + + | Home Phone | | + + + | Preferred Language | Unknown | + + + | Marital Status | | + + + | Orthodoxy Affiliation | Unknown | + + + | Race | White | + + + | Ethnic Group | Not or | + + + Author + + + | Author | [facility] | | | and [place] | + + + | Organization | [facility] | | | and [...] [place], [place] | | | | | [address] | | + + + + + | Isabella "Tiki" | ECON | [address] | | | [place] | | [place], [place] | | | | | [address] | | + + + + + Care Team Providers + +------+ + | Care Manager Process Excellence Name | Role | Phone | + [...] Basal cell | Carly M, | [address] [place] | | | | | carcinoma of | MD [address] | [place], | | | | | skin of | [address] | [place] [address] | | | | | scalp and | [place], | Phone: | | | | | neck | [place] [address] | [phone] | | | | | Recurrent | Phone: | Fax: | | | | | basal cell | [phone] | [phone] | | | | | carcinoma | Fax: | | | | | | Procedures | [phone] | | | | | | CT [...] Basal cell | Carly M, | [address] [place] | | | | | carcinoma of | MD [address] | [place], | | | | | skin of | [address] | [place] [address] | | | | | scalp and | [place], | Phone: | | | | | neck | [place] [address] | [phone] | | | | | Recurrent | Phone: | Fax: | | | | | basal cell | [phone] | [phone] | | | | | carcinoma | Fax: | | | | | | Procedures | [phone] | | | | | | CT Soft | | | | | | | Tissue Neck | | | | | | | w Contrast | | | +--------+--------+ + + + + Encounter Details +--------+ + + + + | Date | Type | Department | Care Team | Description | +--------+ + + + + | 05/09/ | Hospital | [facility] | Carly Jaime | Basal cell carcinoma | | 2019 | Encounter | MED [facility] [address] | M, MD [address] | of skin of scalp | | | | [place], | [place], [place] | and neck ; Recurrent | | | | [place] [address] | [address] | basal cell | | | | [phone] | | carcinoma | +--------+ + + [...] [place] | | | | | | [id number] | | | | | | | [...] The | | | parapharyngeal, retropharyngeal, and medical assistant internal medicine spaces are normal. | | | The [...]
--- OUTSIDE RECORDS SUMMARY | ~2020-02-21 | XMS | Encounter Summary ---
Demographics + + + | Address | [address] | | | [place] [address] | + + + | Home Phone | | + + + | Preferred Language | Unknown | + + + | Marital Status | | + + + | Confucianism Affiliation | NRP | + + + | Race | White | + + + | Ethnic Group | Not or | + + + Author + + + | Author | [facility] | + + + | Organization | [facility] | + + + | Address | Unknown | + + + | Phone | Unavailable | + + + Support + + + + + | Name | Relationship | Address | Phone | + + + + + | Alanna Merino | DAT | [address] | | | | | [address] | | | | | [address] | | + + + + + Care Team Providers + +------+ + | Care Portable Sawyer Name | Role | Phone | + +------+ + | No Pcp Per Patient | PCP | Unavailable | + +------+ + Encounter Details +--------+ + + + + | Date | Type | Department | Care Team | Description | +--------+ + + + + | 11/22/ | Documentati | [facility] | Deion Sommer, | | | 2019 | on | [facility] | [address] | | | | | [facility] | [address] | | | | | [address] | [place], [place] | | | | | [address] [place] | [address] | | | | | [facility], | [phone] | | | | | floor [place], [place] | | | | | | [address] | | | | | | [phone] | | | +--------+ + + + [...]
--- OUTSIDE RECORDS SUMMARY | ~2020-02-21 | XMS | Encounter Summary ---
Demographics + + + | Address | [address] | | | [place] [address] | + + + | Home Phone | | + + + | Preferred Language | Unknown | + + + | Marital Status | | + + + | Yarsani Affiliation | NRP | + + + [...] [place] | | | | | [address] | | + + + + + Care Team Providers + +------+ + | Care Doctor Of Podiatric Medicine Name | Role | Phone | + +------+ + | [place] Mason MD | PCP | | + +------+ + Encounter Details +--------+ + + + + | Date | Type | Department | Care Team | Description | +--------+ + + + + | 12/24/ | Telephone | Surgical | Steve De La Cruz MD | | | 2008 | | Dermatology [address] | | | | | | [address] Mailcode: | | | | | | [address] [facility] | | | | | | [facility], | | | | | | [facility] | | | | | | Floor [place], [place] | | | | | | [address] | | | | | | [phone] | | | +--------+ + + + [...]
--- OUTSIDE RECORDS SUMMARY | ~2020-02-21 | XMS | Encounter Summary ---
Demographics + + + | Address | [address] | | | [place] [address] | + + + | Home Phone | | + + + | Preferred Language | Unknown | + + + | Marital Status | | + + + | Methodist Affiliation | NRP | + + + | Race | White | + + + | Ethnic Group | Not or | + + + Author + + + | Author | [facility] | + + + | Organization | [facility] | + + + | Address | Unknown | + + + | Phone | Unavailable | + + + Support + + + + + | Name | Relationship | Address | Phone | + + + + + | Alanna Merino | DAT | [address] | | | | | [address] | | | | | [address] | | + + + + + Care Team Providers + +------+ + | Care Resident Medical Officer Name | Role | Phone | [...] | 2009 | Visit | [facility] [address] | MD [address] | Unspecified Nature, | | | | [address] | [facility] [place] | Site Unspecified | | | | for Health and | [address] | (Primary Dx) | | | | [facility], [address], | [phone] | | | | | 16th Floor | | | | | | [place], [place] | | | | | | [address] | | | | | | [phone] | | | +--------+---------+ + + + [...] = all BCC. Call & send to [facility] all signed by Hanna Jimenez MD at [...] this encounter. HANNA JIMENEZ MD MEDICAL DERMATOLOGY [address] Mail Code: [address] [place] [address] [address] Mason [...] l neck lesion REFERRING PHYSICIAN: Dr. Mason ([place]) HISTORY OF PRESENT ILLNESS: Guilherme Merino is [...] skin lesions Meds and Allegies listed in [facility] The patient intake was reviewed including [...] Cristobal Luna MD Resident, Department of Dermatology [facility] documented in this e ncounter Plan of Treatment + + +--------+ + + | Name | Type | Priori | Associated Diagnoses | Order Schedule | | | | ty | | | + + +--------+ + + | OK BIOPSY OF SKIN | Procedures | Routin | Neoplasm of | Ordered: 11/07/2008 | | LESION | | e | Unspecified Nature, | | | | | | Site Unspecified | | + + +--------+ + + | [place] BIOPSY, EACH | Procedures | Routin | Neoplasm of | Ordered: 11/07/2008 | | ADDED LESION | | e | Unspecified Nature, | | | | | | Site Unspecified | | + + +--------+ + + | [place] BIOPSY, EACH | Procedures | Routin | [...]
--- OUTSIDE RECORDS SUMMARY | ~2020-02-21 | XMS | Encounter Summary ---
Demographics + + + | Address | [address] | | | [place] [address] | + + + | Home Phone | | + + + | Preferred Language | Unknown | + + + | Marital Status | | + + + | Temple Affiliation | Unknown | + + + | Race | White | + + + | Ethnic Group | Not or | + + + Author + + + | Author | [facility] | | | and [place] | + + + | Organization | [facility] | | [...] [place], [place] | | | | | [address] | | + + + + + | Isabella "Tiki" | ECON | [address] | | | [place] | | [place], [place] | | | | | [address] | | + + + + + Care Team Providers + +------+ + | Care Personnel Recruiter Name | Role | Phone | + +------+ + | No, Physician | PCP | Unavailable | + +------+ + Encounter Details +--------+ + + + + | Date | Type | Department | Care Team | Description | +--------+ + + + + | 11/15/ | Hospital | [facility] | Deion Sommer, | History of ischemic | | 2019 | Encounter | [facility] | [address] | left MCA stroke; | | | | [address] | [address] | Stenosis of left | | | | [place], [place] | [place], [place] | carotid artery | | | | [address] | [address] | | | | | [phone] | [phone] | | | | | | | [...] + + + +---------+ + + | clopidogrel | Take 75 mg by mouth | | 0 | | | | (PLAVIX) 75 mg | Daily. | | | | 9 | | tablet | | [...] [place] | | | | | | [id number] | | | | | | | | +--------+ + + + + documented as of this encounter Procedures + +--------+ + + + | Procedure Name | Priori | Date/Time | Associated Diagnosis | Comments | | | ty | | | | + +--------+ + + + | VAS CAROTID DUPLEX | Routin | 11/15/2018 | History of | Results for this | | BILATERAL | e | 12:34 PM | ischemic left MCA | procedure are in the | | | | PDT | stroke Stenosis of | results section. | | | | | left carotid artery | | + +--------+ + + + documented in this encounter Results VAS Carotid Duplex Bilateral (11/15/2018 12:34 PM PDT) + + | Specimen | + + | | + + + + + | Narrative | Performed At | + + + | VAS CAROTID DUPLEX BILATERAL 11/15/2018 11:51 AM HISTORY: | [facility] | | HISTORY OF ISCHEMIC LEFT MCA STROKE, STENOSIS OF LEFT INTERNAL CAROTID | | | ARTERY. COMPARISON: None. PROTOCOL: Rubin scale and Doppler | | | images of the carotid arteries. FINDINGS: Right: Mild calcified | | | and noncalcified plaque is seen at the level of the carotid bulb and | | | proximal ICA. Peak systolic velocity (cm/s) and end diastolic | | | velocity (cm/s). CCA: 52, 14 Bulb: 99, 22 ECA: 136, 30 ICA: | | | 59, 19 Vertebral: Antegrade flow Bulb/mid CCA ratio:1.9 Highest | | | ICA/mid CCA ratio:1.6 Left: Mild diffuse calcified plaque | | | involving the distal CCA. Moderate calcified and noncalcified plaque | | | is seen involving the carotid bulb and proximal ICA. Peak systolic | | | velocity (cm/s) and end diastolic velocity (cm/s). CCA: 99, 26 | | | Bulb: 67, 18 ECA: 130, 24 Proximal ICA: 36, 13, question artifact | | | skewing this value. Mid ICA: 60, 22 Vertebral: Antegrade flow | | | Bulb/mid CCA ratio: 0.7 Highest ICA/mid CCA ratio: 0.6 IMPRESSION | | | - Mild stenosis at the level of the right carotid bulb and proximal | | | ICA measuring 10-20% without hemodynamically significant stenosis. | | | Ljpe-nm-adeyelft calcified plaque is seen involving the left artery | | | bulb and proximal ICA with only 10-20% luminal narrowing and without | | | hemodynamically significant stenosis. Dictated and | | | Signed by: Edy Amos MD Electronically signed: 11/16/2018 9:29 | | | AM | | + + + + + | Procedure Note | + + | Surya, Rad Results In - 11/16/2018 9:32 AM PDT VAS CAROTID DUPLEX BILATERAL 11/15/2018 | | 11:51 AM HISTORY: HISTORY OF ISCHEMIC LEFT MCA STROKE, STENOSIS OF LEFT INTERNAL | | CAROTIDARTERY.COMPARISON: None.PROTOCOL: Rubin scale and Doppler images of the carotid | | arteries.FINDINGS:Right: Mild calcified and noncalcified plaque is seen at the level of | | thecarotid bulb and proximal ICA.Peak systolic velocity (cm/s) and end diastolic | | velocity (cm/s). CCA: 52, 14Bulb: 99, 22ECA: 136, 30ICA: 59, 19Vertebral: Antegrade | | flowBulb/mid CCA ratio:1.9Highest ICA/mid CCA ratio:1.6Left: Mild diffuse calcified | | plaque involving the distal CCA. Moderate calcifiedand noncalcified plaque is seen | | involving the carotid bulb and proximal ICA.Peak systolic velocity (cm/s) and end | | diastolic velocity (cm/s). CCA: 99, 26Bulb: 67, 18ECA: 130, 24Proximal ICA: 36, 13, | | question artifact skewing this value. Mid ICA: 60, 22Vertebral: Antegrade flowBulb/mid | | CCA ratio: 0.7Highest ICA/mid CCA ratio: 0.6IMPRESSION -Mild stenosis at the level of | | the right carotid bulb and proximal ICA [id number]% without hemodynamically | | significant stenosis.Syjv-hv-hakcwtia calcified plaque is seen involving the left artery | | bulb andproximal ICA with only 10-20% luminal narrowing and without | | hemodynamicallysignificant stenosis.Dictated and Signed by: Edy Amos MD | | Electronically signed: 11/16/2018 9:29 AM | |ICA: 59, 19 | |Vertebral: Antegrade flow | | | |Bulb/mid CCA ratio:1.9 | |Highest ICA/mid CCA ratio:1.6 | | | |Left: Mild diffuse calcified plaque involving the distal CCA. Moderate calcified | |and noncalcified plaque is seen involving the carotid bulb and proximal ICA. | | | |Peak systolic velocity (cm/s) and end diastolic velocity (cm/s). | |CCA: 99, 26 | |Bulb: 67, 18 | |ECA: 130, 24 | |Proximal ICA: 36, 13, question artifact skewing this value. | |Mid ICA: 60, 22 | |Vertebral: Antegrade flow | | | |Bulb/mid CCA ratio: 0.7 | |Highest ICA/mid CCA ratio: 0.6 | | | |IMPRESSION - | |Mild stenosis at the level of the right carotid bulb and proximal ICA measuring | |10-20% without hemodynamically significant stenosis. | | | |Bxst-es-ojeaehir calcified plaque is seen involving the left artery bulb and | |proximal ICA with only 10-20% luminal narrowing and without hemodynamically | |significant stenosis. | | | | | | | | | |Dictated and Signed by: Edy Amos MD | | Electronically signed: 11/16/2018 9:29 AM | + + + +---------+ + + [...] | + + | Stenosis of left carotid artery Occlusion and stenosis of carotid artery without | | mention of cerebral infarction | + + documented in this encounter
--- OUTSIDE RECORDS SUMMARY | ~2020-02-21 | XMS | Encounter Summary ---
Demographics + + + | Address | [address] | | | [place] [address] | + + + | Home Phone | | + + + | Preferred Language | Unknown | + + + | Marital Status | | + + + | Mandaen Affiliation | NRP | + + + [...] [place] | | | | | [address] | | + + + + + Care Team Providers + +------+ + | Care Line Up Worker Name | Role | Phone | [...] Pharmacy | | | | | | [address] | | | | | | [place], [place] | | | | | | [address] | | | | | | [phone] | | | +--------+ + + + [...]
--- OUTSIDE RECORDS SUMMARY | ~2020-02-21 | XMS | Encounter Summary ---
Demographics + + + | Address | [address] | | | [place] [address] | + + + | Home Phone | | + + + | Preferred Language | Unknown | + + + | Marital Status | | + + + | Yazidism Affiliation | NRP | + + + [...] [place] | | | | | [address] | | + + + + + Care Team Providers + +------+ + | Care Uranium Processing Supervisor Name | Role | Phone | + +------+ + | No Pcp Per Patient | PCP | Unavailable | + +------+ + Reason for Referral Consultation (Routine) +--------+--------+ + + + + | Status | Reason | Specialty | Diagnoses / | Referred By | Referred To | | | | | Procedures | Contact | Contact | +--------+--------+ + + + + | Closed | | Urology | Diagnoses | [place], | | | | | | History of | Deion Coates, | | | | | | ischemic | [address] | | | | | | left MCA | [address] | | | | | | stroke | [address] | | | | | | Stenosis of | [place], [place] | | | | | | left | [address] | | | | | | internal | Phone: | | | | | | carotid | [phone] | | | | | | artery | Fax: | | | | | | Procedures | [phone] | | | | | | CONSULT TO | | | | | | | UROLOGY | | | +--------+--------+ + + + + Reason for Visit Consultation (Routine) +--------+--------+ + + + + | Status | Reason | Specialty | Diagnoses / | Referred By | Referred To | | | | | Procedures | Contact | Contact | +--------+--------+ + + + + | Closed | | Neurology | Diagnoses | Rob, | [place], | | | | | Acute | MD Lisseth | Deion Coates MD | | | | | ischemic | [address] | [address] | | | | | left UNARMED SECURITY OFFICER | [address] | [address] | | | | | stroke (HCC) | [place]don[address] | Joel | | | | | Procedures | [place], [place] | [place], [place] | | | | | CONSULT TO | [address] | [address] | | | | | NEUROLOGY | Phone: | Phone: | | | | | | [phone] | [phone] | | | | | | Fax: | Fax: | | | | | | [phone] | [phone] | +--------+--------+ + + + + Encounter Details +--------+---------+ + + + | Date | Type | Department | Care Team | Description | +--------+---------+ + + + | 11/09/ | Office | [facility] | Deion Sommer, | History of ischemic | | 2019 | Visit | [facility] | [address] | left MCA stroke | | | | [facility] | [address] | (Primary Dx); | | | | [address] | [place], [place] | Stenosis of left | | | | [address] [facility] | [address] | internal carotid | | | | [facility], | [phone] | artery | | | | floor [place], [place] | | | | | | [address] | | | | | | [phone] | | | +--------+---------+ + + + Social History + + [...] + + + | Respiratory Rate | - | - | | + [...] + + + documented in this encounter Functional Status + + + [...] + + documented as of this encounter Patient Instructions Patient Instructions Deion Sommer MD - 11/09/2018 1:00 PM PDT Diagnosis: left MCA territory stroke left carotid stenosis with stenting in 10/2018 Medications: continue aspirin 325mg daily for LIFE atorvastatin 40mg daily Studies: lipid panel today referral for carotid duplex ultrasound Other items: referral for Urology evaluation for hematuria no driving until ..... 1) formal visual field evaluation with an eye doctor 2) formal driving safety evaluation by occupational therapy smoking cessation with primary care Risk factor reduction and modification is extremely important for stroke prevention. The op timization of blood pressure with a goal systolic pressure < 140mmHg, management of choleste rol with LDL goal < 70, along with periodic screening for diabetes by checking HbA1c with go al < 7.0 should be continued under the care of your primary care physician. A minimum of at least one office visit each year with your primary care physician can help you reach these goals. It is recommended that you adopt a low fat and low sodium diet. There are many healthy ts to choose from. Two of the best examples of brain and heart healthy diets are the Medite rranean and MIND diets. These diets primarily consists of nuts, fruits, vegetables, whole g rains, and olive oil; with moderate amounts of fish and lean poultry; and minimal dairy prod ucts, red or processed meats, and sweets. It is recommended that you exercise at least 30 min each day if you are able to safely. It is very important that you become your own healthcare advocate. Signing up for MyChart, completion of provided recommendations, using pill organizers to help with medication manag ement, calling well in advance to change/cancel your appointments, monitoring home blood pre ssure etc., arriving at least 30 minutes prior to appointments, requesting prescription refi lls at least 3 business days before you run out, and keeping an updated list of your medicat ions and allergies in your purse or wallet at all times are examples of how you can improve the quality and effectiveness of your own healthcare. If you have a complicated medical history or problem, you might consider creating a timelin e document that includes symptoms, dates, and important studies that you can provide to new physicians. Call 911 IMMEDIATELY if you experience NEW weakness, numbness, vision changes, abnormal spe ech, imbalance, or incoordination. Next clinic visit: follow-up in 6 months If you need to change or cancel please call If you have any URGENT concerns please call our advice line at It was a pleasure seeing you today. Please send me a MyChart Message if you have any questions or concerns. Deion Sommer MD Vascular Neurology [facility] Department of Neurology [facility] [place] [id number] [place] [address] documented in this encounter Progress Notes Deion Sommer MD - 11/09/2018 1:00 PM PDTFormatting of this note might be different fr om the original. STROKE NEUROLOGY CLINIC FOLLOW-UP VISIT NOTE 11/09/2018 HISTORY OF PRESENT ILLNESS Guilherme Merino is a 63 year old right-handed male with medical history including active to bacco abuse, hypertension, hyperlipidemia, and recurrent cervical skin cancer with surgical resection and left neck radiation admitted as a transfer on 10/06/2018 for a left MCA/UNARMED SECURITY OFFICER te rritory stroke related to left carotid artery stenosis. Initially presented to the Emergency Department in [place], [place] after waking the AM of with right upper extremity weakness, dysarthria, and aphasia. Discharged home [facility] returned on 10/05/2018 with progressive symptoms. CTA with severe left internal carotid artery stenosis just distal to the bifurcation and left variant UNARMED SECURITY OFFICER. MRI demonstrate d left parietal/occipital ischemic strokes with watershed component. Initiated on a heparin infusion and aspirin 81mg prior to transfer for early revascularization of the left interna l carotid artery stenosis. Patient described right visual field deficit since 04/2018. He completed a course of radia tion to the left side of his neck on 10/02/18 and had been holding home aspirin for the 4 week s preceding presentation. Left carotid stenting was completed on 10/09/2018 with Neurointerventional Radiology. Since discharge no transient or persistent focal neurologic symptoms have been experienced including weakness, numbness, vision changes, or difficulty with speech. Aphasia has improved to very mild occasional word finding difficulty. Mild right visual fi eld deficit persists. Right hand coordination improved significantly. Scuffing right foot during ambulation with some occasional stumbling without falls. Coughing fits improved to once or twice a day. Turns red. Eyes roll back. Loses muscle c ontrol. Only occurs while sitting. Sips of water will abort episodes. Duration couple of seconds. Urology outpatient referral for evaluation of hematuria surrounding hospitalization was not completed. Patient was on heparin, Plavix, and aspirin. No recurrence. Has nearly returned to cognitivie baseline. Spouse expresses concerns surrounding patien's wish to return to driving. Completed 1 month of DAPT for carotid stent and currently continues on aspirin 325mg daily along with atorvastatin 40mg. Actively abusing tobacco. ROS Completed. Positives above. MEDICAL HISTORY Current Medication List Name Sig ASPIRIN 325 MG TABLET Take 1 tablet by mouth once daily. ATORVASTATIN 40 MG TABLET Take 1 tablet by mouth once daily. GABAPENTIN 300 MG CAPSULE Take 900 mg by mouth three times daily. HYDROCODONE 10 MG-ACETAMINOPHEN 325 MG TABLET Take 1-2 tablets by mouth every six hours as needed. LISINOPRIL 10 MG-HYDROCHLOROTHIAZIDE 12.5 MG TABLET Take 1 tablet by mouth once daily. OMEPRAZOLE 20 MG CAPSULE,DELAYED RELEASE Take 20 mg by mouth once daily. Administer 30 to 6 0 minutes before meals No Known Allergies PHYSICAL EXAM: BP 115/79 | Pulse 71 | Ht 1.753 m (5' 9") | Wt 78.5 kg (173 lb) | SpO2 96% | BMI 25.55 kg/m | BSA 1.95 m General: NAD HEENT: NCAT CV: rrr Pulm: breathing comfortably Abd: soft, nt Ext: no GAMAL Derm: No rashes, no lesions NEUROLOGIC EXAM: MENTAL STATUS Alert, oriented to person, November 07()2018, 330pm(130pm), [place], no neglect , no aphasia, following commands CN: PERRLA, right upper quadrant predominant visual field loss, gaze primary, EOMI, facial sensation symmetric, no nystagmus, no upper or lower face asymmetry, chronic hearing loss, s houlder shrug intact Motor: Normal tone. No pronator drift. RUE 5/5, LUE 5/5, RLE 5/5, LLE 5/5. Mild right side d clumsiness. Sensation: intact to light touch in upper and lower ext bilaterally. Coordination: Finger to nose is normal. Heel to yoon is normal. NIHSS 1 mRs 2 Labs: Lab Results Component Value Date CHOL 153 11/09/2018 LDL 62 11/09/2018 HDL 38 11/09/2018 TRI 263 11/09/2018 Lab Results Component Value Date A1C 5.9 10/07/2018 IMAGING: All imaging personally reviewed; all interpretations are Radiology reads; personal additions are noted with an *asterisk DIAGNOSTIC CEREBRAL ANGIOGRAM 10/08/2018 The innominate artery demonstrates moderate atheromatous disease without evidence for flow- limiting stenosis. The right common carotid artery demonstrates moderate to severe atheromatous disease at the bifurcation. There is approximately 25% stenosis of the right internal carotid artery origi n measured by NASCET criteria. The right common carotid arteriogram of the intracranial circulation demonstrates diffuse m ultifocal moderate intracranial atherosclerotic disease. Most notably is an approximate 50% stenosis of the right M1 segment of the middle cerebral artery just distal to its origin jatinder sured by modified NASCET criteria. Perfusion of the left anterior cerebral artery territory is dependent on a large anterior communicating artery. The left common carotid artery demonstrates severe atheromatous disease at the bifurcation. There is an atheromatous plaque of the lateral aspect of the distal left common carotid art maisha. Approximately 0.5 cm distal to the carotid artery bifurcation is a 60% stenosis of the left internal carotid artery measured by NASCET criteria. This stenosis is at the level of t he superior C4 vertebral body. No associated thrombus The left common carotid arteriogram of the intracranial circulation demonstrates diffuse mo derate to severe intracranial atherosclerotic disease. There is no A1 anterior cerebral hardy ry segment. There is a variant posterior cerebral artery. The right common femoral arteriogram demonstrates a high bifurcation. CTA HEAD AND NECK ~70% stenosis of the proximal left ICA at the C3/4 vertebral body level mild right ICA stenosis variant left UNARMED SECURITY OFFICER MRI BRAIN left MCA, UNARMED SECURITY OFFICER, and left hemispheric watershed ischemic strokes OTHER DATA: TTE + BUBBLE STUDY 1. The left ventricular size is normal. 2. The LV function is normal. 3. The aortic valve is trileaflet and restricted. The noncoronary cusp with restricted and thickened. No aortic stenosis. 4. Right ventricular size, thickness and function are normal. 5. Saline contrast study shows no evidence of right to left intra-atrial or intra-pulmonary shunting. 6. There are no prior exams available for comparison. Assessment: Recurrent left MCA and UNARMED SECURITY OFFICER ischemic strokes. Etiology LICA stenosis. Suspect stenosis is pr edominantly related to chronic atheromatous disease given 04/2018 stroke with related right visual field deficit predates neck radiation. Left carotid stenting completed on 10/09/2018 . CEA considered high risk due to cervical radiation and isolated left anterior circulation . Completed course of DAPT for stent. Secondary stroke prevention outlined below. Tobacco c essation is paramount. Baseline carotid duplex ultrasound to be completed in [place]. Return to driving would require formal visual field assessment and formal driving safety ev aluation by occupational therapy. Urology outpatient evaluation for hematuria surrounding hospitalization not completed and w ill be pursued via external referral in [place]. Plan: continue aspirin 325mg for LIFE continue atorvastatin 40mg daily lipid panel today secondary stroke prevention goals for primary care LDL < 70, HbA1c < 7.0, SBP < 140 external referral for carotid duplex US - [place] external referral for Urology evaluation - [place] NO DRIVING - requires formal VF evaluation + OT driving evaluation tobacco cessation with primary care follow-up visit in 6 months I spent 33 minutes with the patient. Greater than 50% of the time was spent counseling the patient regarding left MCA/UNARMED SECURITY OFFICER ischemic stroke and left internal carotid stenosis. Stroke education provided to patient included stroke warning signs, the need to dial 911, risk fact or reduction, stroke medications, and follow-up. Deion Sommer MD Stroke Neurology documented in this e ncounter Plan of Treatment Not on filedocumented as of this encounter Results LIPID SET (TRIG, T [...] | + + + + + | [facility] | [address] | [place] [address] | | | SERVICES, CORE | [address] | | | + + + + + documented in this encounter Visit Diagnoses + + | Diagnosis | + + | History of ischemic left MCA stroke - Primary Transient ischemic attack (TIA), and | | cerebral infarction without residual deficits | + + | Stenosis of left internal carotid artery | + + documented in this encounter
--- OUTSIDE RECORDS SUMMARY | ~2020-02-21 | XMS | Encounter Summary ---
Demographics + + + | Address | [address] | | | [place] [address] | + + + | Home Phone [...] + + + | Author | [facility] | | | and [place] | + + + | Organization | [facility] | | | [...] [place], [place] | | | | | [address] | | + + + + + | Isabella "Tiki" | ECON | [address] | | | [place] | | [place], [place] | | | | | [address] | | + + + + + Care Team Providers + +------+ + | Care Gyroscopic Instrument Tester Name | Role | Phone | + [...] + + | 02/21/ | Telephone | [facility] | Ashu Singh DO | Family/caregiver | | 2018 | | MED CTR [facility] | [address] [facility] | Concerns | | | | ON[facility]OG[facility] CL[facility] [address] | [place] | | | | | [address] | [address] | | | | | [place] [address] | | | | | | [phone] | | | +--------+ + + + [...] Spoke with Greta on the phone at [facility]. She states that they did fi [...] ar e flexible, but they live in [place] so prefer nothing early in morning. Please call if paulino arnold can help. [phone] signed by Cody Sharif at 02/21/2019 9:20 [...] [place] | | | | | | [address] | | | | | | | | +--------+ + + + + documented as of this encounter Visit Diagnoses Not on filedocumented in this encounter
--- OUTSIDE RECORDS SUMMARY | ~2020-02-21 | XMS | Encounter Summary ---
Demographics + + + | Address | [address] | | | [place] [address] | + + + | Home Phone | | + + + | Preferred Language | Unknown | + + + | Marital Status | | + + + | Caodaism Affiliation | NRP | + + + | Race | White | + + + | Ethnic Group | Not or | + + + Author + + + | Author | [facility] | + + + | Organization | [facility] | + + + | Address | Unknown | + + + | Phone | Unavailable | + + + Support + + + + + | Name | Relationship | Address | Phone | + + + + + | Alanna Merino | DAT | [address] | | | | | [address] | | | | | [address] | | + + + + + Care Team Providers + +------+ + | Care Holistic Nutritionist Name | Role | Phone | + [...] as of this encounter Progress Notes Interface, Banana Loader In - 02/10/2006 1:08 AM PDT May [...]
--- OUTSIDE RECORDS SUMMARY | ~2020-02-21 | XMS | Encounter Summary ---
Demographics + + + | Address | [address] | | | [place] [address] | + + + | Home Phone [...] [place], [place] | | | | | [address] | | + + + + + | Isabella "Tiki" | ECON | [address] | | | [place] | | [place], [place] | | | | | [address] | | + + + + + Care Team Providers + +------+ + | Care Acid Extractor Name | Role | Phone | + [...] + + + + | 05/30/ | [facility] | Carly Jaime | Basal cell carcinoma | | 2019 | Encounter | [facility] | MD Paulette [address] | (BCC) of skin of | | | | ONCOLOGY CLINIC [address] | [place], [place] | neck (Primary Dx) | | | | [address] [facility] [address] [facility] | [address] | | | | | [place] [address] | | | | | | [phone] | | | +--------+ + + + [...] [place] | | | | | | [address] | | | | | | | | +--------+ + + + + documented as of this encounter Visit Diagnoses + + | Diagnosis | + + | Basal cell carcinoma (BCC) of skin of neck - Primary | + + documented in this encounter
--- OUTSIDE RECORDS SUMMARY | ~2020-02-21 | XMS | Encounter Summary ---
Demographics + + + | Address | [address] | | | [place] [address] | + + + | Home Phone [...] Author | [facility] | | | and [place] | + + + | Organization | [facility] | | [...] [place], [place] | | | | | [address] | | + + + + + | Isabella "Tiki" | ECON | [address] | | | [place] | | [place], [place] | | | | | [address] | | + + + + + Care Team Providers + +------+ + | Care Harness Brusher Name | Role | Phone | + +------+ + | No, Physician | PCP | Unavailable | + +------+ + Encounter Details +--------+ + + + + | Date | Type | Department | Care Team | Description | +--------+ + + + + | 05/09/ | Hospital | [facility] | Yeni Carly | | | 2019 | Encounter | MED CTR RADIATION | MD Paulette [address] | | | | | ONCOLOGY [address] | [facility] [place], [place] | | | | | [place], | [address] | | | | | [place] [address] | | | | | | [phone] | | | +--------+ + + + [...] [place] | | | | | | [id number] | | | | | | | | +--------+ + + + + documented as of this encounter Visit Diagnoses Not on filedocumented in this encounter
--- OUTSIDE RECORDS SUMMARY | ~2020-02-21 | XMS | Encounter Summary ---
Demographics + + + | Address | [address] | | | [place] [address] | + + + | Home Phone [...] [place], [place] | | | | | [address] | | + + + + + | Isabella "Tiki" | ECON | [address] | | | [place] | | [place], [place] | | | | | [address] | | + + + + + Care Team Providers + +------+ + | Care Certified Adaptive Physical Educator Name | Role | Phone | [...] [address] | | | | | | [place], | [place] | | | | | | [place] [address] | [place], [place] | | | | | | Phone: | [address] | | | | | | [phone] | Phone: | | | | | | Fax: | [phone] | | | | | | [phone] | Fax: | | | | | | | [phone] | +--------+ + + + + + Reason for Visit + + + | Reason | Comments | + + + | Follow-up | | + + + Evaluate & [...] | | | | Procedures | [address] [place] | [place] | | | | | [address] | [place], | [place], | | | | | | [place] | [place] [address] | | | | | | [address] | Phone: | | | | | | Phone: | [phone] | | | | | | [phone] | Fax: | | | | | | Fax: | [phone] | | | | | | [phone] | | +--------+--------+ + + + + Encounter Details +--------+ + + + + | Date | Type | Department | Care Team | Description | +--------+ + + + + | 01/08/ | Hospital | [facility] | Ashu Singh DO | Recurrent basal cell | | 2019 | Encounter | MED CTR RADIATION | [address] | carcinoma (Primary | | | | ONCOLOGY CLINIC [address] | [place] | Dx); Malignant | | | | [place] | [address] | neoplasm of skin | | | | [place] [address] | | | | | | [phone] | | | +--------+ + + + [...] + + + | Blood Pressure | 160/88 | 01/08/2019 2:17 PM | | | | | PDT | | + + + + + | Pulse | 83 | 01/08/2019 2:17 PM | | | | | PDT | | + + + + + | Temperature | 37 C (98.6 F) | 01/08/2019 2:17 PM | | | | | PDT | | + + + + + | Respiratory Rate | - | - | | + + + + + | Oxygen Saturation | 96% | 01/08/2019 2:17 PM | | | | | PDT | | + + + + + | Inhaled Oxygen | - | - | | | Concentration | | | | + + + + + | Weight | 84 kg (185 lb 3 oz) | 01/08/2019 2:17 PM | | | | | PDT | | + + + + + | Height | - | - | | + + + + + | Body Mass Index | 26.81 | 12/27/2018 9:52 AM | | | [...] encounter Progress Notes Ashu Singh DO - 01/08/2019 2:24 PM PDT Follow-up Clinic Note Chief Complaint/ICD10 ICD-10-CM ICD-9-CM 1. Recurrent basal cell carcinoma C44.91 173.91 2. Malignant neoplasm of skin C44.90 173.90 Oncology History: Recurrent basal cell carcinoma 09/04/2018 - 10/02/2018 Radiation Therapy Total dose 55 Gy delivered in 20 fractions using an en face 6 MeV electron beam deliverin g 2.75 Gy per day. Dose prescribed to the 95% isodose line History of Present Illness: Guilherme Merino was seen today after completing radiotherapeutic salvage of recurrent basal cell carcinoma in the left neck. He is a pleasant 63-year-old gentleman from [facility] who has a long-standing history of basal cell carcinoma involving his left neck. 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 Subsequent recurrence i n 2001 describes a sclerosing basal cell carcinoma at which time Mohs surgery was performed at [facility]. He returned again in 2008 to undergo additional Mohs surgery for a left neck recur rence. His disease has last recurred in 2018. At the time of consultation he had a 6 x 4 c m ulcerated lesion with rolled borders on the left lateral neck. Upon presentation to our c linic he had significant pruritus and neck pain from his open wound. Gabapentin was prescri bed and titrated to effect. He received definitive external beam radiotherapy to the site o f recurrence between September 04, 2018 and October 02, 2018. His states that his tumor regres sed and over the past 3 weeks his skin has finally sealed up. He notes firmness in the area of treatment but denies any difficulty swallowing or chronic sore throat. It was recommend ed that he follow up with dermatology in the posttreatment setting. Days after completing tr eatment, he suffered an ischemic stroke that occurred on October 04, 2018 requiring a left ICA stent placed October 09, 2018 at [facility]. He has been followed by Dr. Deion Sommer at the [facility] in [place], [place] for further management having last been seen in November 2018. He presents today for posttreatment evaluation for locally adv anced/recurrent basal cell carcinoma involving the left neck after completion of definitive external beam radiotherapy. ROS Constitutional: Denies fatigue. Denies high fevers, shaking chills, anorexia, nausea, vomit ing, weight loss, or night sweats. Appetite without changes. Ear, Nose, Mouth, Throat: Denies odynophagia, dysphagia, or tinnitus. Cardiovascular: Denies shortness of breath, dyspnea on exertion, chest pain, palpitations o r orthopnea. Respiratory: Denies cough, hemoptysis, or sputum production. Gastrointestinal: Denies abdominal pain, constipation, diarrhea, melena, or bright red bloo d per rectum. Genitourinary: Denies hematuria or dysuria. Musculoskeletal: Reports general joint pain. Neurologic: Reports loss of peripheral vision since stroke on 10/06/2047. Denies headache, v isual changes, or numbness/tingling of the extremities. Endocrine: Denies peripheral edema or heat/cold intolerance. Hematologic: Denies spontaneous bruising or bleeding. Integumentary: Denies rash, wounds or other skin concerns. Pain: Denies pain. Note: Here for follow up for basal cell carcinoma My chart: Declined Current Outpatient Medications Medication Sig Dispense Refill aspirin 325 mg tablet Take 325 mg by mouth Daily. atorvaSTATin (LIPITOR) 40 mg tablet Take 40 mg by mouth nightly. lisinopril (PRINIVIL, ZESTRIL) 10 mg tablet Take 10 mg by mouth Daily. omeprazole (PRILOSEC) 20 mg capsule Take 20 mg by mouth every morning (before breakfast ). No current facility-administered medications for this encounter. Allergies No active allergies Intolerance No active intolerances/contraindications BP 160/88 | Pulse 83 | Temp 37 C (98.6 F) (Temporal) | Wt 84 kg (185 lb 3 oz) | SpO 2 96% | BMI 26.81 kg/m Physical Exam Constitutional: He is oriented to person, place, and time. Vital signs are normal. He appea rs well-developed and well-nourished. No distress. HENT: Head: Normocephalic and atraumatic. Eyes: EOM are normal. No scleral icterus. Neck: Trachea normal. Cardiovascular: Normal rate. Pulmonary/Chest: Effort normal. No accessory muscle usage. No respiratory distress. Musculoskeletal: Normal range of motion. Neurological: He is oriented to person, place, and time. He has normal strength. Skin: Skin is warm, dry and intact. Psychiatric: He has a normal mood and affect. His behavior is normal. Cognition and memory are normal. Nursing note and vitals reviewed. Labs: No results found for: WBC, HGB, HCT, MCV, LABPLAT, PLT No results found for: CREA, BUN, NA, K, CL, CO2 No results found for: ALT, AST, GGT, ALKPHOS, BILITOT Impression with Recommendation/Plan: 1. Recurrent basal cell carcinoma - [facility] - AMB Referral 2. Malignant neoplasm of skin Guilherme Merino was seen today for his first posttreatment follow-up for locally advanced/r ecurrent basal cell carcinoma involving the left submandibular neck. He has had complete re solution of the recurrent lesion. On the posterior left neck, he does have regions of eryth asaf of unclear etiology that are pruritic requiring further evaluation by dermatology given his prior history of malignancy. I do recommend dermatologic evaluation in the near future as well as for for long-term follow-up and surveillance with a referral again being made toyulisa sharp. Moving forward, we will alternate follow-up with dermatology likely on a six-month basi s. He will continue to follow-up with neurology as directed regarding his recent stroke and stenting. He was encouraged to call our clinic with any further questions or concerns rega rding course of therapy in our clinic. Thank you for allowing me to participate in the care of Guilherme. If you should have any ques tions regarding this evaluation, please do not hesitate to contact me. Ashu Singh D.O., PRATIMA Radiation Oncologist Department of Radiation Oncology [facility] This note was transcribed using Garp[employer] speech recognition software. As a result, there may be unintended for medical and/or spelling errors. Every attempt is made to correct dictati on. If there are any questions or errors please contact our office. documented in this encounter Plan of Treatment [...] [place] | | | | | | [address] | | | | | | | | +--------+ + + + + + + +--------+ + + | Name | Type | Priori | Associated Diagnoses | Order Schedule | | | | ty | | | + + +--------+ + + | Kelli Pereira | Outpatient | Routin | Recurrent basal | Ordered: 01/08/2019 | | Clinic Dermatology | Referral | e | cell carcinoma | | | Group - AMB Referral | | | | | + + +--------+ + + documented as of this encounter Visit Diagnoses + + | Diagnosis | + + | Recurrent basal cell carcinoma - Primary Basal cell carcinoma of skin, site | | unspecified | + + | Malignant neoplasm of skin Unspecified malignant neoplasm of skin, site unspecified | + + documented in this encounter
--- OUTSIDE RECORDS SUMMARY | ~2020-02-21 | XMS | Encounter Summary ---
Demographics + + + | Address | [address] | | | [place] [address] | + + + | Home Phone [...] + + + | Author | [facility] | + + + | Organization | [facility] | + + + | Address | Unknown | + + + | Phone | Unavailable | + + + Support + + + + + | Name | Relationship | Address | Phone | + + + + + | Alanna Merino | DAT | [address] | | | | | [place] | | | | | [address] | | + + + + + Care Team Providers + +------+ + | Care Manager Business Operations Name | Role | Phone | + [...] | Only | [address] | [phone] | | | | | [place] | | | | | | [address] | | | | | | [phone] | | | +--------+ + + + [...] | | | | | | slide, [id number] returned | | | | | | [...] | + + + + + | [facility] | [address] | [place] [address] | | | PATHOLOGY | [address] | | | + + + + + | [facility] | [address] [place] [address] | [place] [address] | | | PATHOLOGY | [address] [...] S# | | | | | | [id number] returned to | | | | | [...] | + + + + + | [facility] | [address] | [place] [address] | | | PATHOLOGY | [address] | | | + + + + + | [facility] | [address] | [place] [address] | | | PATHOLOGY | [address] | | | + + + + + documented in this encounter Visit Diagnoses Not on filedocumented in this encounter"
--- OUTSIDE RECORDS SUMMARY | ~2020-02-21 | XMS | Encounter Summary ---
Demographics + + + | Address | [address] | | | [place] [address] | + + + | Home Phone | | + + + | Preferred Language | Unknown | + + + | Marital Status | | + + + | [employer]aritan Affiliation | Unknown | + + + [...] [place], [place] | | | | | [address] | | + + + + + | Isabella "Tiki" | ECON | [address] | | | [place] | | [place], [place] | | | | | [address] | | + + + + + Care Team Providers + +------+ + | Care Speedometer Mechanic Name | Role | Phone | + +------+ + | Alen Bolanos MD | PCP | | + +------+ + Encounter Details +--------+ + + + + | Date | Type | Department | Care Team | Description | +--------+ + + + + | 10/17/ | Hospital | [facility] | Ashu Singh DO | Malignant neoplasm | | 2019 | Encounter | MED CTR RADIATION | [address] | of skin (Primary Dx) | | | | ONCOLOGY CLINIC [address] | [place] | | | | | [address] [place] [place] | [address] | | | | | [place] [address] | | | | | | [phone] | | | +--------+ + + + [...] [place] | | | | | | [address] | | | | | | | | +--------+ + + + + documented as of this encounter Visit Diagnoses + + | Diagnosis | + + | Malignant neoplasm of skin - Primary Unspecified malignant neoplasm of skin, site | | unspecified | + + documented in this encounter
--- OUTSIDE RECORDS SUMMARY | ~2020-02-21 | XMS | Encounter Summary ---
Demographics + + + | Address | [address] | | | [place] [address] | + + + | Home Phone | | + + + | Preferred Language | Unknown | + + + | Marital Status | | + + + | Samaritan Affiliation | NRP | + + + | Race | White | + + + | Ethnic Group | Not or | + + + Author + + + | Author | [facility] | + + + | Organization | [facility] | + + + | Address | Unknown | + + + | Phone | Unavailable | + + + Support + + + + + | Name | Relationship | Address | Phone | + + + + + | Alanna Merino | DAT | [address] | | | | | [address] | | | | | [address] | | + + + + + Care Team Providers + +------+ + | Care Digital Marketing Consultant Name | Role | Phone | + +------+ + | Washington Mason MD | PCP | | + +------+ + Encounter Details +--------+ + + + + | Date | Type | Department | Care Team | Description | +--------+ + + + + | 11/07/ | Results | Dermatology | Ward Jimenez, | | | 2008 | Only | Medical at [facility] [address] | [address] | | | | | [address] [place] | [facility] [place] | | | | | for Health and | [address] | | | | | [facility], | [phone] | | | | | [address] Floor | | | | | | [place], [place] | | | | | | [address] | | | | | | [phone] | | | +--------+ + + + [...] | | | | | MNT) | [id number] OF | | | | | | SPECIMEN:B FIRST TISSUE | | | | | | LEVEL [place] [id number] | | | | | | OF SPECIMEN:C FIRST | | | | | | TISSUE LEVEL IV | | | | | | [id number] | | | | | | DESCRIPTION:A: [...] CELL | | | | | | CARCINOMA.CRW:[id number]//09R | | | | | | endering Diagnostician: | | | | | | Florencio R. White Jr., | | | | | | Mary | | | | | | mirna Signed 11/11/2008 | | | | + + + + + + + + | Specimen | + + | Other | + + + + + + + | Performing | Address | City/State/Zipcode | Phone Number | | Organization | | | | + + + + + | [facility] | [id number] | [place] [address] | | | DERMATOPATHOLOGY | [address] | | | + + + + + documented in this encounter Visit Diagnoses Not on filedocumented in this encounter"
--- OUTSIDE RECORDS SUMMARY | ~2020-02-21 | XMS | Encounter Summary ---
Demographics + + + | Address | [address] | | | [place] [address] | + + + | Home Phone | | + + + | Preferred Language | Unknown | + + + | Marital Status | | + + + | Mosque Affiliation | NRP | + + + | Race | White | + + + | Ethnic Group | Not or | + + + Author + + + | Author | [facility] | + + + | Organization | [facility] | + + + | Address | Unknown | + + + | Phone | Unavailable | + + + Support + + + + + | Name | Relationship | Address | Phone | + + + + + | Alanna Jorge | DAT | [address] | | | | | [address] [place] | | | | | [address] | | + + + + + Care Team Providers + +------+ + | Care Agricultural Mechanic Name | Role | Phone | [...] ischemic | [address] | | | | | left RNP | Nathalie Chaney | Shiv Desai | | | | | stroke (HCC) | Oscar Maldonado | Joel | | | | | Procedures | [place], [place] | [place], [place] | | | | | CONSULT TO | [address] | [address] | | | | | NEUROLOGY | Phone: | Phone: | | | | | | [phone] | [phone] | | | | | | Fax: | Fax: | | | | | | [phone] | [phone] | +--------+--------+ + + + + Speech Therapy (Routine) +--------+--------+ + + + + | Status | Reason | Specialty | Diagnoses / | Referred By | Referred To | | | | | Procedures | Contact | Contact | +--------+--------+ + + + + | Closed | | Speech | Diagnoses | Rob, | [address] [address] [facility] | | | | Therapy | Acute | MD Lisseth | [address] | | | | | ischemic | [address] | [facility] | | | | | left RNP | Nathalie Chaney | for Health | | | | | stroke (HCC) | Oscar Maldonado | and Healing, | | | | | Procedures | [place], [place] | [address], | | | | | SPEECH | [address] | 1st Floor | | | | | THERAPY | Phone: | [place], [place] | | | | | REFERRAL | [phone] | [address] | | | | | | Fax: | Phone: | | | | | | [phone] | [phone] | | | | | | | Fax: | | | | | | | [phone] | +--------+--------+ + + + + Occupational Therapy (Routine) +--------+--------+ + + + + | Status | Reason | Specialty | Diagnoses / | Referred By | Referred To | | | | | Procedures | Contact | Contact | +--------+--------+ + + + + | Closed | | Occupational | Diagnoses | Rob, | [facility] | | | | Therapy | Acute | MD Lisseth | [address] | | | | | ischemic | [address] | [facility] | | | | | left RNP | Nathalie Chaney | for Health | | | | | stroke (HCC) | Oscar Maldonado | and Healing, | | | | | Procedures | [facility] [place] | [address], | | | | | | [address] | 1st Floor | | | | | OCCUPATIONAL | Phone: | [place], [place] | | | | | THERAPY | [phone] | [address] | | | | | REFERRAL | Fax: | Phone: | | | | | | [phone] | [phone] | | | | | | | Fax: | | | | | | | [phone] | +--------+--------+ + + + + Physical Therapy (Routine) +--------+--------+ + + + + | Status | Reason | Specialty | Diagnoses / | Referred By | Referred To | | | | | Procedures | Contact | Contact | +--------+--------+ + + + + | Closed | | Physical | Diagnoses | Rob, | [facility] | | | | Therapy | Acute | MD Lisseth | [address] | | | | | ischemic | [address] | [address] | | | | | left RNP | Nathalie Chaney | for Health | | | | | stroke (HCC) | [address] | and Healing, | | | | | Procedures | [place], [place] | [address], | | | | | PHYSICAL | [address] | 1st Floor | | | | | THERAPY | Phone: | [place], [place] | | | | | REFERRAL | [phone] | [address] | | | | | | Fax: | Phone: | | | | | | [phone] | [phone] | | | | | | | Fax: | | | | | | | [phone] | +--------+--------+ + + + + Reason for Visit AUTH/CERT +--------+--------+ + + + + | Status [...] + + + + | 10/06/ | Hospital | [facility] [address] | Deion Sommer, | | | 2019 - | Encounter | [address] | [address] | | | | | [id number] | [address] | | | 10/10/ | | [facility] [place], | [place], [place] | | | 2018 | | [place] [address] | [address] | | | | | [phone] | [phone] | | | | | | | [...] + + + | Blood Pressure | 141/81 | 10/10/2018 1:45 PM | | | | | PDT | | + + + + + | Pulse | 64 | 10/10/2018 11:45 AM | | | | | PDT [...] + | Oxygen Saturation | 98% | 10/10/2018 1:45 PM | | | | | PDT | | + + + + + | Inhaled Oxygen | - | - | | | Concentration | | | | + + + + + | Weight | 82.3 kg (181 lb 7 | 10/10/2018 4:00 AM | | | | oz) | PDT | | + + + + + | Height | 175.3 cm (5' 9") | 10/06/2018 11:57 PM | | | | | PDT | | + + + + + | Body Mass Index | 26.79 | 10/06/2018 11:57 PM | | | | | PDT [...] + + documented as of this encounter Discharge Summaries Lisseth Rivas MD - 10/10/2018 12:26 PM PDTFormatting of this note might be different fro m the original. INPATIENT STROKE DISCHARGE SUMMARY Admission Date: 10/06/2018 Discharge Date: 10/10/2018 Service: Neurology stroke Patient PCP: No Pcp Per PATIENT Principal Final Diagnosis: Diagnoses Principal Final Diagnosis: 1) *Acute ischemic left ICA stroke (HCC) 2) Malignant neoplasm of skin 3) Carotid stenosis, left 4) Essential hypertension 5) Hematuria 6) Urinary frequency Procedures while in house: Left ICA stent 10/09/2018 Significant images/lab findings: CTH/CTA head/neck 10/06/2018 : severe LICA stenosis just distal to the bifurcation, L P CA. MRI Brain: Scattered small areas of diffusion restriction in L parieto-occipital region, wa tershed. Generalized atrophy. IR Angiogram (10/08/2018): This diagnostic cerebral angiogram demonstrates diffuse moderate to severe atheromatous dis ease of the cervicocerebral arteries. Most notable is a 60% stenosis of the left internal ca rotid artery just distal to its origin at the level of the superior C4 vertebral body and a 50% stenosis of the proximal M1 segment of the right middle cerebral artery. The left anterior circulation is isolated due to an absent A1 segment of the anterior cereb ral artery and a posterior cerebral artery. TTE (10/07/2018): 1. The left ventricular size is normal. 2. The LV function is normal. 3. The aortic valve is trileaflet and restricted. The noncoronary cusp with restricted and thickened. No aortic stenosis. 4. Right ventricular size, thickness and function are normal. 5. Saline contrast study shows no evidence of right to left intra-atrial or intra-pulmonary shunting. Lab Results Component Value Date LDL 82 10/07/2018 Lab Results Component Value Date A1C 5.9 (H) 10/07/2018 Admitting Presentation: Guilherme Jorge is a 63 y.o. RIGHT handed male with HTN, HLD, recurrent skin cancer s/p MOH S surgery and L neck radiation (completed radiation 10/02 and has been holding ASA) with LKN e vening of 10/04 who presented to OSH with RUE weakness and aphasia. Patient woke on 10/04 with right hand numbness and clumsiness, also developed slurred speech and word finding difficult y. Presented to OSH ED and was sent home. Symptoms worsened over the following day and on 10/05 re-presented to OSH. CTA with severe L ICA stenosis just distal to the bifurcation, L feta l RNP. MRI demonstrating L parietooccipital ischemia/watershed infarct. He was started on heparin gtt and transferred for consideration of carotid stent vs CEA. Brief Hospital Course: # L MCA/RNP watershed infarct # L ICA stenosis s/p stent 10/09 # L RNP The etiology of patient's stroke was from L ICA stenosis. Patient's stroke risk factors wer e appropriately managed. ASA/Plavix was started. LDL was 82, atorvastatin increased from 20m g to 40mg. A1c was 5.9. BP was controlled on a regimen of lisinopril. Glucose was well contr olled without insulin. PT and OT evaluated the patient and recommended discharge to home. - ASA 325mg for life - Plavix 75mg for 1 month - Counseled re: smoking cessation - Atorvastatin 40mg - Patient will follow up in stroke clinic in one month. - PT/OT # Cognitive Impairment MOCA completed with score of 20. Difficult to assess cognitive impairment in the hospital. Concern for delirium, but given history per of insidious cognitive decline, will refer for outpatient neurology evaluation. - Neurology outpatient evaluation placed Discharge Physical Exam: BP 128/78 | Pulse 64 | Temp 37 C (98.6 F) | Resp 17 | Ht 1.753 m (5' 9") | Wt 82.3 kg (181 lb 7 oz) | SpO2 96% | BMI 26.79 kg/m | BSA 2 m Gen: A&O x3, NAD HEENT: NCAT, PERRL, EOMI, MMM, oropharynx benign Chest: breathing comfortably CV: RRR Ext: no edema Skin: warm, well perfused, no rash Neurological: NIHSS: Category Description Score 1a. Level of Consciousness 0=Alert 1=Drowsy 2=Stuperous 3=Coma 0 1b. LOC Questions (month, age) 0=Both correct 1=One correct 2=Incorrect 0 1c. LOC Commands (Open/close eyes, make fist, let go) 0=Obeys both correctly 1=Obeys one correctly 2=Incorrect 0 2. Best Gaze (Eyes open, patient follows examiner's finger or face) 0=Normal 1=Partial gaze palsy 2=Forced gaze deviation 2 3. Visual Allison (Introduce visual stimulus/threat into pt's visual field quadrants) 0=No visual loss 1=Partial hemianopia 2=Complete hemianopia 3=Bilateral hemianopia (blind) 0 4. Facial Paresis (Show teeth, raise eyebrows and squeeze eyes shut) 0=Normal 1=Minor 2=Partial 3=Complete 0 5a. Motor Left Arm (Elevate arm to 90 deg if sitting, 45 if supine, hold for 10 seconds) 0 =No drift 1=Drift 2=Can't resist gravity 3=No effort against gravity 4=No movement X= Untestable (joint fused or amputaion) 0 5b. Motor Right Arm As in 5a 0 6a. Motor Left Leg (Elevate to 30 deg with pt supine, hold for 5 seconds) As in 5a 0 6b. Motor Right Leg As in 5a 0 7. Limb Ataxia (finger, nose, ataxia out of proportion to weakness) 0=No ataxia 1=Partial loss 2=Severe loss 0 8. Sensory (pin prick to face, arm, trunk, leg. Compare side to side) 0=Normal 1=Partial loss 2=Severe loss 0 9. Best Language (name an item, describe a picture, read a sentence) 0=No aphasia 1=Mild to moderate aphasia 2=Severe aphasia 3=Mute 0 10. Dysarthria (Evaluate speech clarity by patient repeating listed words) 0=Normal articu lation 1=Mild to moderate slurring 2=Near to unintelligible or worse X=Intubated or other physical barrier 1 11. Extinction and Inattention (Use information from prior testing to identify neglect or d ouble simultaneous stimuli testing) 0=No neglect 1=Partial neglect 2=Complete neglect 0 TOTAL SCORE: 3 mRS: 2 0 No symptoms at all 1 No significant disability despite symptoms; able to carry out all usual duties and activi ties 2 Slight disability; unable to carry out all previous activities, but able to look after ow n affairs without assistance 3 Moderate disability; requiring some help, but able to walk without assistance 4 Moderately severe disability; unable to walk without assistance and unable to attend to o wn bodily needs without assistance 5 Severe disability; bedridden, incontinent and requiring constant nursing care and attenti on 6 Mental Status: General: Normal activity, good hygiene, appropriate appearance. Level of consciousness: Awake, alert. Orientation: Oriented to person, place, time and situation. Concentration/Attention Span: Normal. Comprehension/Praxis: Able to perform a three step command. Neglect: Normal double simultaneous stimulation. Fund of Knowledge/memory: Adequate recent and remote recall. Language: Fluent and articulate without evidence of aphasia or dysarthria. Cranial Nerves: I: Not tested II: PERRL, RHH III, IV, : Gaze conjugate, EOMI V: Sensation intact and symmetric to light touch V1-V3 VII: Symmetric facial motor function bilaterally VIII: Intact to finger rub bilaterally IX: Palate elevates symmetrically X: Normal cough XI: Normal shrug bilaterally XII: Tongue protrudes midline Motor: Normal tone in all groups. Mild, intermittent RUE drift. LUE: No drift RLE: No drift LLE: No drift Sensation: Light touch: Intact and symmetric in the bilateral upper and lower extremities. Coordination: Fine finger movements are of normal speed and fluency Finger to nose is of normal speed, no action tremor, and no end-point dysmetria Discharge Medications: Medication List START taking these medications clopidogrel 75 mg Tab Commonly known as: PLAVIX Take 1 tablet by mouth once daily for 27 days. CHANGE how you take these medications aspirin 325 mg Tab Take 1 tablet by mouth once daily. What changed: medication strength how much to take atorvastatin 40 mg Tab Commonly known as: LIPITOR Take 1 tablet by mouth once daily. What changed: medication strength how much to take CONTINUE taking these medications gabapentin 300 mg Cap Commonly known as: NEURONTIN Take 900 mg by mouth three times daily. HYDROcodone-acetaminophen 10-325 mg Tab Commonly known as: NORCO Take 1-2 tablets by mouth every six hours as needed. lisinopril-hydrochlorothiazide 10-12.5 mg Tab Commonly known as: ZESTORETIC Take 1 tablet by mouth once daily. STOP taking these medications cephALEXin 500 mg Cap Commonly known as: KEFLEX ASK your doctor about these medications omeprazole 20 mg Cpdr Commonly known as: PRILOSEC Take 20 mg by mouth once daily. Administer 30 to 60 minutes before meals Ask about: Which instructions should I use? Diet: Diet Regular Regular diet- There are no restrictions to your diet. You may eat or drink whatever you pr efer, though healthy food choices are recommended. Stroke Discharge Orders & Instructions What are the warning signs of stroke? Call 911 if you experience: - Sudden weakness or numbness of the face, arm, or leg, especially on one side of the body; - Sudden confusion, trouble speaking or understanding; - Sudden trouble seeing in one or both eyes; - Sudden trouble walking, dizziness, loss of balance or coordination; - Sudden severe headaches with no obvious cause. Today there are treatments that can reduce the damage caused by a stroke. However, you mus t seek medical attention FAST POSSIBLE BY CALLING 911. Time is Brain. Discharge Activity: Activity No activity restrictions Follow Up Appointments: Condition on Discharge Fair Follow-Up for Ischemic Stroke For ischemic stroke: Call [phone] to schedule your follow-up appointment in 1 month Outstanding labs/studies: Lab Orders - In Process (Through next 24h) None Follow Up Tests: none Discharging Attending: Ryan Douglas MD Physician Signature: Lisseth Rivas MD Neurology PGY-2 Stroke pager [phone] Associated attestation - Ryan Douglas MD - 10/10/2018 2:51 PM PDT Stroke Service Note I agree with the history, exam and care plan as per the greenhouse laborer's note and have exami mily the patient myself. Patient doing well from stroke and ABHAY standpoint. Should plan to follow up in 1 month. Can consider [facility] Telehealth clinic for stroke follow up. 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 Ryan Douglas M.D. Sales And Business Development Manager Vascular Neurology documented in this encounter Discharge Instructions Instructions Chamorro ShirleyANUJA amado - 10/07/2018Formatting of this note might be different fr om the original. There are more than 6 million stroke survivors in the [place] Recovery After Stroke: Coping with Emotions Dealing with a flood of emotions can be hard for stroke survivors. Some emotions are mary l responses to the changes in your life after stroke. Others are common but should not be c onsidered a normal part of stroke recovery. If you suffer from depression, anxiety or emoti ons that are not in line with the occasion, seek help. Dealing with Depression Grieving for what you have lost is good for you. But when sadness turns to depression, it s time to act. Depression can take hold right after a stroke, during rehabilitation (rehab ) or after you go home. It can be but not always caused by brain damage from the st roke. Mild or major, it is the most common emotional problem faced by survivors. Depression symptoms include: ? Feeling sad or empty most of the time ? Loss of interest or pleasure in ordinary activities ? Fatigue or feeling slowed down ? Sudden trouble sleeping or oversleeping ? Sudden loss of appetite or weight gain ? Being unable to concentrate, remember or make decisions like you used to ? Feeling worthless or helpless ? Feelings of guilt ? Ongoing thoughts of or suicide, suicide planning or attempts ? A sudden change in how easily you are annoyed ? Crying all the time Some useful tips: ? Make the most of rehab; the more you recover, the better you will feel ? Spend time with family and friends ? Maintain your quality of life by staying active and doing things you enjoy ? Seek help soon after you note symptoms Your treatment may include counseling, medicine or both. Having Extreme Anxiety Anxiety is an overwhelming sense of worry or fear. It can include increased sweating or he art rate. Among stroke survivors, feelings of anxiety are common. Often, stroke survivors s uffer from both depression and anxiety at the same time. Anxiety can affect rehab progress, daily living, relationships and quality of life. So, be sure to seek help right away. Anxiety symptoms include: ? Ongoing worrying, fear, restlessness and irritability that don t seem to let up ? Low energy ? Poor concentration ? Muscle tension ? Feeling panicky and out of breath ? Scary rapid heart beat ? Shaking ? Headache ? Feeling sick to your stomach Again, treatment may include counseling, medicine or both. Uncontrolled Emotions Do you find yourself laughing or crying at all the wrong times? If so, you may suffer from Pseudobulbar Affect (PBA). Also called emotional incontinence or pathologic lability, PBA i s a common medical problem among stroke survivors. It can cause you to laugh at a o r cry at a comedy club. It can even make you cry uncontrollably for little or no reason. F or this reason, it is often confused with depression. But, PBA is not depression. People with PBA are unable to control their emotional expressions the way they used to. Wh en this happens in social settings, they feel embarrassed, frustrated and angry. They also sense that others are uneasy. They may avoid work, public places and family get-togethers. This can lead to feelings of fear, shame and isolation. There is no treatment approved by the Federal Drug Administration (FDA) for PBA, though ant idepressant drugs can help. These things may help you cope with PBA: ? Be open about it. Warn people that you cannot always control your emotions. Explain that the emotions you show on the outside don t always reflect how you feel on the inside. ? Distract yourself. If you feel an outburst coming on, focus on something boring or unrel ated. Try counting the number of items on a shelf. ? Note the posture you take when crying. When you think you are about to cry, change your posture. ? Breathe in and out slowly until you are in control. ? Relax your forehead, shoulders and other muscles that tense up when crying. What Can Help ? Ask your doctor about emotional changes and symptoms early on. ? Ask your family to stimulate your interest in people and social activities. ? Stay as active as possible and stay involved in your hobbies. ? Set goals and measure accomplishment. ? Plan daily activities to provide structure and sense of purpose. ? Stay involved with people, thoughts and activities that you enjoy. ? Get information on stroke recovery from National Stroke Association. Visit http://www.st roke.org/ or call 0-438-CBVHDHF ( ). ? The [place] Stroke Association Family "Warmline" 8-364-8-STROKE ( ). ? Contact your local stroke association. ? Join a stroke support group. Other survivors will understand your issues, and offer suppo rt and ideas to help you manage your emotions. ? Speak openly and honestly to your caregivers about your emotional changes. They ll be glad you did, and together you can work out a solution. Professionals Who Can Help ? Psychologists, psychiatrists and other mental health professionals experienced with strok e-related emotional disorders. Rehabilitation is a lifetime commitment and an important part of recovering from a stroke. Through rehabilitation, you relearn basic skills such as talking, eating, dressing and walk ing. Rehabilitation can also improve your strength, flexibility and endurance. The goal is to regain as much independence as possible. Remember to ask your doctor, Where am I on my stroke recovery journey? If you are having thoughts of harming yourself or feel you are experiencing a mental health emergency, please reach out to one of the resources listed below: -Call 911 -Call one of the 24/01 Crisis Line numbers listed below -Call your primary care provider NATIONAL CRISIS LINES: -24/01 National Suicide Prevention Lifeline 5-576-451-TALK (9035) Hearing and Speech Impaired 9-890-578-4TTY (0766) http://www.suicidepreventionlifeline.org/ -24/01 Mental Health Treatment Referral Line 4-379-497-HELP (6351) http://www.samhsa.gov/treatment/natHelpFAQs.aspx -[facility] Crisis [facility] , press 1 Http://www.KemPharmcrisisline.net/ Information for local mental health crisis line contact information can be found at the end of this list of resources. Support for Caregivers (Respite) and Independent Living Resources Respite care or short-term relief is a time for families and primary caregivers to restore and strengthen their ability to continue providing care for an adult with special needs - i. e., mental or physical disabilities, chronic illness or medical fragility, or at risk of abu se or neglect. Research has shown that there are many benefits and cost savings for everyone involved in respite care, from a micro level of improving the family stability to the macro level of saving billions of dollars in the national healthcare cost. (ARCH National Respite Network's factsheet on cost benefits of respite, updated April 2010) Sometimes families find they can draw enough support from family and friends if they are ab le to help give the primary caregiver breaks from cooking, cleaning or other caregiving acti vities at regularly scheduled times. But other times families need additional supports to he lp relieve the primary caregiver and ensure the patient has all the support they need. Your family may need to reach out to your local community centers, your senior or day center, you r judaism community, or any other community in which you are a member to ask for support. Remember to be specific in your request i.e I could really use 2 hours every week on morning for someone to stay with my father while I swim laps and get a break. Fortunately, many supports available to help caregivers are also available to individuals w ho reside alone so that individuals can continue to be independent safely despite deficits. Local Resources: 211 Info A website data base and live phone line (call 211) and text service which conn ects the people of [place] and [facility] with the community resources they need. 2 [employer] (988.687.3423) This is a [employer] which can provide in home assistance at a cost to the family. [place] [employer] [place] OPI is a program which helps seniors 60 and over continue to live independently and safely living in their own home. OPI provides individualized personal care, housekeeping, and case management support. http://www.[place].gov/dhs/spwpd/pages/ltc/inhome.aspx#opi [place] Independent Living Resources: [place] Statement Of Independent Living Resources: Promote the philosophy of Independent L iving by creating opportunities, encouraging choices, advancing equal access, and furthering the level of independence for all people with disabilities. 315.815.4010 [facility] (029.676.8115) Services are targeted to people who are not Medicaid eligible. The [facility] has information about in-home care, how to find the medical equipment you need, how to arrange for home delivered meals, how to apply for Medicaid, and much more. Meals on Wheels (www.mealsonwheelspeople.org) Meals on Wheels are hot, nutritious lunches that are delivered Tuesday through Tuesday betwee n 11 a.m. and 1 p.m. to homebound elderly age 60 and older. Seniors must live in [facility] in [place] or [facility] in [place] to be eligible to receive meal s. Call to request meals at [phone] in [facility] and toll free in [facility] at . Most of the [facility] in [place] have a Meals on Wheels Program, and information on local [facility] iz-gh-bpqllo services can be obtained through local Area Agency on Aging Offices. [place] Vocational Rehabilitation Service (OVRS) ( ) http://www.[place].gov/DHS /vr/Pages/index.aspx [place] Area Agency on Aging http://www.[place].gov/dhs/spwpd/pages/offices.aspx There are 17 Area Agencies on Aging across [place] that administer and support community-bas ed care services. AAAs advocate for older adults living in their area, develop community-based long-term care services to meet the needs of those adults and administer funds to implement services. Most services coordinated by AAAs are provided through community service providers at the local level. This section contains program information designed for staff members of [place]'s AAAs . Aging and Disability Resource Connection of [place] https://adrcoforegon.org/jenacd-vorcoxn-tyk-independent-living.php [facility] of [place] is a resource directory for [place] families, caregivers and consumers seekin g information about long-term supports and services. Here you will find quick and easy acces s to resources in your community. If you cannot find the information you are looking for or wish to talk to someone in person, please call us toll free at 8-950-INZ-[facility] ([phone]) [place] Caregiver Support Line http://www.caregiver.[place].gov/ Toll free : Also check with your private health insurance organization, as respite care may also be inc luded in the coverage. Support Groups for Families Living with Aphasia Individuals and families affected by aphasia face unique challenges. Support specifically d esigned for these people is limited. Three groups have formed in the [place], [place] area t hat provide both the individual experiencing aphasia and family members the opportunity to d evelop a sense of community with others impacted by aphasia. These groups are organized and run by participants. Faculty and students from [facility] s Department of S peech and Hearing Sciences work with survivors and families as they strive to improve and yip rvive this condition. Groups are free of charge, but do ask for small contributions to be gi boyd to the churches that have donated space. Regular attendance is not required, but familie s feel that attending often is beneficial to everyone. There are several groups in the [facility] for individuals and families living wit h aphasia: [facility] Continuous Improvement Group When: Each Tuesday 11: 12:00 Where: [facility] [address] [place] [address]. Contact: Alfonso Garcia Jennyfer [email or web address] [facility] Speak EZ group When: Odd numbered Saturdays (i.e. July 08) 10:00 12:00 Where: [facility] [address] Contact: Lenin Wiggins [phone] [facility] Aphasia Group When: & Tuesday of each month 10:00 12:00 Where: [facility] Room varies watch for directional signs Contact: Samreen Wells [phone] [email or web address] [employer] A community music group for stroke survivors. Stroke survivors, spouses, partners, and care givers are invited to join for an hour of playing instruments and singing. Every Tuesday, 11:30-12:30 at the [facility], [address] [place] [address]. Info rmation contact: Carmen Moore, , Brain Injury [facility] of [place] http://www.biaoregon.org/ National Stroke Association http://www.stroke.org/ .STROKES (787.6895) National Center on Caregiving/ Family Caregiver [place] www.caregiver.org Established in 2000 as a program of Family Caregiver Bradley, the National Center on Careg iving (NCC) works to advance the development of high-quality, cost-effective policies and pr ograms for caregivers in every state in the country. Uniting research, public policy and ser vices, the [facility] serves as a central source of information on caregiving and long-term care is sues for policy makers, service providers, media, funders and family caregivers throughout t he country. services include: Caregiver Information & Assistance: personalized help to cl ntify local resources and services for families, caregivers and providers nationwide, as wel l as our fact sheets and publications on a wide array of caregiving topics and health issues . Note: This fact sheet is compiled from general, publicly available medical information and should not be considered recommended treatment for any particular individual. Stroke survivo rs should consult their doctors about any personal medical concerns. County Crisis Line Information: [facility] Mental Health Access Crisis Number (days) or (after hours) [facility] Mental Health Program Access or Crisis Number [facility] Access Crisis Number [facility] Access Crisis Number [facility] Mental Health, [facility]. Access Crisis Number or (after hours) [facility] Mental Health Program Access Crisis Number (24 hours) [facility] Mental Health Program Access Crisis Number (after hours) [facility] Mental Health Program Access Crisis Number [facility] Mental Health Services Access Crisis Number (24 hours) or [facility] Health and Marketing Finance Manager Dept. Access Crisis Number [facility] Living Branch Office Access Crisis Number 911 [facility] Access Crisis Number or 911 [facility] Counseling & Guidance Service Access Crisis Number [facility] Access Crisis Number [facility] and Human Services Access Crisis Number [facility] Mental Health Program Access Crisis Number (24 hours) [facility] Programs Access Crisis Number (24 hours) [facility] Access Crisis Number [facility] and Human Services Access Crisis Number [facility] & Human Services Access Crisis Number (24 hours) [facility] Mental Health Program Access Crisis Number (days) (after hours) [facility] Mental Health Access Crisis Number (days) (after hours) [facility] Behavioral Health Access Crisis Number [facility] Access Crisis Number [facility] Access Crisis Number 911 [facility] Human Services Access Crisis Number Toll-free at [facility] Mental Health Access Crisis Number (days) (after hours) [facility] for Living Access Crisis Number [facility] Access Crisis Number or [facility] Behavioral Health Access Crisis Number (24 hours) [facility] Access Crisis Number [facility] Access Crisis Number [facility] for Living Access Crisis Number (after hours) [facility] Mental Health Access Crisis Number [facility] Behavioral Health Access Crisis Number 915 [facility] Mental [facility] Program Access Crisis Number (days) (after hours) documented in this encounter Medications at Time of Discharge + + + +---------+ + + | Medication | Sig | Dispensed | Refills | Start | End Date | | | | | | Date | | + + + +---------+ + + | aspirin 325 mg | Take 1 tablet by | 30 | 1 | 10/11/19 | | | oral tablet | mouth once daily. | tablet | | 19 | | + + + +---------+ + + | gabapentin 300 mg | Take 900 mg by mouth | | 0 | | | | oral capsule | three times daily. | | | | | + + + +---------+ + + | | Take 1-2 tablets by | | 0 | | | | HYDROcodone-acetamin | mouth every six | | | | | | ophen 10-325 mg oral | hours as needed. | | | | | | tablet | | | | | | + + + +---------+ + + | | Take 1 tablet by | | 0 | | | | lisinopril-hydrochlo | mouth once daily. | | | | | | rothiazide 10-12.5 | | | | | | | mg oral tablet | | | | | | + + + +---------+ + + | omeprazole 20 mg | Take 20 mg by mouth | | 0 | | | | oral capsule,delayed | once daily. | | | | | | release(DR/EC) | Administer 30 to 60 | | | | | | | minutes before meals | | | | | + + + +---------+ + + | clopidogrel 75 mg | Take 1 tablet by | 27 | 0 | 10/11/19 | | | oral tablet | mouth once daily for | tablet | | 19 | 9 | | | 27 days. | | | | | + + + +---------+ + + documented as of this encounter Progress Notes Eliana Granados MD - 10/09/2018 6:42 PM PDTFormatting of this note might be different f rom the original. . Neuroscience Intensive Care Unit Attending Progress Note Attending Pager #[phone] Hospital admission dx: stroke Days in ICU 3 Days in Hospital Abbreviated HPI / Daily Assessment Guilherme Jorge is a 63 y.o. RIGHT handed male with HTN, HLD, recurrent skin cancer s/p MO HS surgery and L neck radiation with LKN evening of 10/04 who presented to OSH with RUE weakne ss and aphasia. Patient woke on 10/04 with right hand numbness and clumsiness, also developed slurred speech and word finding difficulty. Presented to OSH ED and was sent home. Symptom s worsened over the following day and on 10/05 they re-presented to OSH. CTA with severe LICA stenosis just distal to the bifurcation, L RNP present. MRI demonstrating L parietoo ccipital ischemia/watershed infarct. Started on heparin gtt and transferred for consideratio n of carotid stent vs CEA, now s/p angiography on 10/08/2018 and LICA stent on 10/09/2018. Medical Decision Making 63 yo man presenting after left ICA stent placement today for severe stenosis in the setti ng of neck radiation and chemo for skin cancer. Presented with R weakness last week. MRI wit h watershed parieto-occip ischemia. On exam: AA and Ox3, R arm impaired coordination, full strength Plan: neuro checks, at risk for hemorrhagic conversion, stroke, brain edema and compression . Cont dual antiplatelet tx. Strickt SBP control <140, wean nicardipine as tolerated, start home lisinopril. Will not pl dino art line for now unless BP difficult to control. Code Status: FULL Hospital Problems Priority POA Nervous * (Principal)Acute ischemic left ICA stroke (HCC) Unknown Head/Neck Carotid stenosis, left Unknown Cardiovascular Essential hypertension Unknown Genitourinary Urinary frequency Unknown Skin Malignant neoplasm of skin Yes Other Hematuria Unknown NSICU treatment team members Provider Role Specialty Ipt Critical Care Nsicu #[id number] Treatment Team Ipt Mt2 [id number] Treatment Team Ipt Neuro Stroke #[id number] Treatment Team Neurology Code Status Code Status Full Code The Advanced Care Note for this patient can be found under the notes tab in chart review. Quality section I have spent a total of 32 minutes in the direct care and management of this patient indepe ndent of any time spent teaching or performing any separately billable procedures. I reviewe d the documented findings, all data and the recent imaging available. I saw and evaluated t he patient at the bedside together with Dr. Cuenca.Please see their note for details. I agree with the assessment and plan as described in the resident's note with the following excepti ons/additions as noted. Date of Service: 10/09/2018 [facility] DEPARTMENT: ANE ICU NEURO Place of Service:- Inpatient CSN: [id number] Suggested Modifier: GC - Resident Involved Suggested CPT: TO DRY GOODS CLERK Author:ELIANA GRANADOS MD [address] [id number] signed by Eliana Granados MD at 10/09/2018 6:42 PM Deion Sawant MD - 10/09/2018 1:41 PM PDT [facility] INTERVENTIONAL NEURORADIOLOGY Division of the [facility] Attending Physician: Misael Note Date: 10/09/2018 NAME: Guilherme Jorge POST SEDATION NOTE Guilherme Jorge is a 63 y.o. male who underwent left carotid stenting Complications: None; patient tolerated the procedure well. Maximum level of sedation achieved during the procedure: 1 Minimally sedated, appropriate r esponse to voice Current level of sedation: *0 Awake and alert 24 Hour Vital Min/Max: Systolic (24hrs), Av , Min:104 , Max:190 Diastolic (24hrs), A v, Min:59, Max:113 LAST VITALS: BP 112/65 | Pulse 75 | Temp 37 C (98.6 F) | Resp 17 | Ht 1.753 m (5' 9 ") | Wt 81.1 kg (178 lb 12.7 oz) | SpO2 96% | BMI 26.40 kg/m | BSA 1.99 m AAOX3, fo llows commands. NEURO EXAM PERRLA, EOMI, right VF deficit Tongue Midline, mild right facial weakness right upper clumsy without drift. Sensation grossly intact Access site: the right groin with evidence of a small hematoma. Groin dressing remains int act without evidence of bleeding noted. the right leg and foot are pale and warm The patient is recovered from moderate (conscious) sedation with an appropriate level of pa in control Deion Sommer MD Interventional Neuroradiology Ryan Danielle MD - 10/09/2018 12:00 PM PDT INPATIENT STROKE PROGRESS NOTE HOSPITAL DAY: 3 I agree with the history, exam, assessment, and care plan outlined in the greenhouse laborer's n ote and have personally examined the patient. Guilherme Jorge is a 63 y.o. RIGHT handed male with tobacco abuse, HTN, HLD, recurrent skin cancer s/p MOHS surgery and L neck radiation with LKN evening of 10/04 who presented to OSH w ith RUE weakness and aphasia. Patient woke on 10/04 with right hand numbness and clumsiness, also developed slurred speech and word finding difficulty. Presented to OSH ED and was sent home. Symptoms worsened over the following day and on 10/05 they re-presented to OSH. CTA wi th severe LICA stenosis just distal to the bifurcation, L RNP. MRI demonstrating L pa rietooccipital ischemia/watershed infarct. He was started on heparin gtt and transferred f or consideration of carotid stent vs CEA. Has had right visual field cut since April. Completed a course of radiation to the left side of his neck on 10/02/18. Holding aspirin fo r the past 4 weeks. INTERVAL Patient had no events overnight. Awaiting stent today EXAM: BP 142/81 | Pulse 74 | Temp 37 C (98.6 F) | Resp 14 | Ht 1.753 m (5' 9") | Wt 81.1 kg (178 lb 12.7 oz) | SpO2 99% | BMI 26.40 kg/m | BSA 1.99 m Gen: NAD CV: RRR Resp: comfortable on RA MS: alert, interactive, no aphasia, no neglect CN: gaze primary, right visual field deficit, mild right facial weakness, mild dysarthria MOTOR: right upper clumsy with pronation without drift SENSORY: intact and symmetric in all 4 extremities COORDINATION: no ataxia NIHSS 3 mRs 2 baseline mRs 2 LABS: Lab Results Component Value Date INRPT 1.03 10/07/2018 Lab Results Component Value Date APTT 67.7 (H) 10/08/2018 Lab Results Component Value Date CHOL 148 10/07/2018 LDL 82 10/07/2018 HDL 37 10/07/2018 TRI 147 10/07/2018 No results found for: A1C IMAGING: CTA HEAD AND NECK ~70% stenosis of the proximal left ICA at the C3/4 vertebral body level mild right ICA stenosis variant left RNP MRI BRAIN left MCA, RNP, and left hemispheric watershed ischemic strokes DIAGNOSTIC CEREBRAL ANGIOGRAM This diagnostic cerebral angiogram demonstrates diffuse moderate to severe atheromatous dis ease of the cervicocerebral arteries. Most notable is a 60% stenosis of the left internal ca rotid artery just distal to its origin at the level of the superior C4 vertebral body and a 50% stenosis of the proximal M1 segment of the right middle cerebral artery. TTE + BUBBLE STUDY 1. The left [...] no prior exams available for comparison. Assessment: Left MCA, RNP, and left hemispheric watershed strokes on 10/04/2018. Etiology LICA stenosi s. Suspect stenosis is predominantly related to chronic atheromatous disease given 04/2018 s troke with related right visual field deficit predates recent neck radiation. Diagnostic cerebral angiogram 10/08 with diffuse moderate to severe cervicocerebral arthros clerotic vascular disease including left ICA stenosis of ~60% right MCA stenosis of ~50%. T he left anterior circulation is isolated. Proceeding with LICA stenting today Hematuria. Urology recommends outpatient evaluation. Plan: carotid stent today. Post stent goal SBP <140 aspirin 325mg daily Plavix 75mg daily for 1 month atorvastatin 40mg daily telemetry monitoring SURGERY AIDE /PT/OT Social Work "stroke protocol" MOCA eval today Ryan Douglas M.D. Sales And Business Development Manager Department of Neurology [facility] Interventional Instittue Lisseth Ferguson MD - 10/09/2018 5:55 AM PDT STROKE PROGRESS NOTE 10/09/2018 ID: Guilherme Jorge is a 63 y.o. RIGHT handed male with HTN, HLD, recurrent skin cancer s/p MOHS surgery and L neck radiation (LKN 10/04) who presented to OSH with RUE weakness and apha julieth. Presented to OSH ED and was sent home. Symptoms worsened over the following day and on 10/05 re-presented to OSH. CTA with severe L ICA stenosis and L RNP present. MRI demon strating L parietooccipital ischemia/watershed infarct. Started on heparin gtt and transferr ed for consideration of intervention, now s/p carotid stent 10/09 Interval Hx: - No acute events overnight - L ICA stent this AM without complications - Exam stable, denies new focal neurologic deficits Inpatient meds: Current Facility-Administered Medications Medication Dose Route Frequency acetaminophen (TYLENOL) tablet 650 mg 650 mg oral Q4H PRN aspirin tablet 325 mg 325 mg oral DAILY atorvastatin (LIPITOR) tablet 40 mg 40 mg oral DAILY bisacodyl (DULCOLAX) suppository 10 mg 10 mg rectal DAILY PRN clopidogrel (PLAVIX) tablet 75 mg 75 mg oral DAILY gabapentin (NEURONTIN) capsule 900 mg 900 mg oral TID HYDROcodone-acetaminophen (NORCO) 10-325 mg 1 tablet 1 tablet oral Q6H PRN ondansetron (ZOFRAN) tablet 8 mg 8 mg oral Q12H PRN pantoprazole (PROTONIX) tablet 20 mg 20 mg oral DAILY polyethylene glycol (MIRALAX) packet 34 g 34 g oral TID PRN senna-docusate (SENOKOT S) 8.6-50 mg 1 tablet 1 tablet oral BID sodium chloride 0.9 % (NS) IV infusion 75 mL/hr intravenous CONTINUOUS Exam: Last Vitals: BP 154/67 (BP Location: Left upper arm, Patient Position: Lying on back) | Pu lse 64 | Temp 36.7 C (98.1 F) | Resp 16 | Ht 1.753 m (5' 9") | Wt 81.1 kg (178 lb 12 .7 oz) | SpO2 95% | BMI 26.40 kg/m | BSA 1.99 m 24 Hour Vital Min/Max: Systolic (24hrs), Av , Min:122 , Max:172 Diastolic (24hrs), Av, Min:59, Max:106 Pulse Min: 53 Max: 73 Temp Min: 36.6 C (97.9 F) Max: 37.1 C (98.8 F) Resp Min: 12 Max: 17 SpO2 Min: 92 % Max: 97 % Intake/Output Summary (Last 24 hours) at 10/09/18 0555 Last data filed at 10/09/18 0531 Gross per 24 hour Intake 2623.75 ml Output 250 ml Net 2373.75 ml Constitutional:WD/WN, NAD Neurological: Category Description Score 1a. Level of Consciousness 0=Alert 1=Drowsy 2=Stuperous 3=Coma 0 1b. LOC Questions (month, age) 0=Both correct 1=One correct 2=Incorrect 0 1c. LOC Commands (Open/close eyes, make fist, let go) 0=Obeys both correctly 1=Obeys one correctly 2=Incorrect 0 2. Best Gaze (Eyes open, patient follows examiner's finger or face) 0=Normal 1=Partial gaze palsy 2=Forced gaze deviation 0 3. Visual Allison (Introduce visual stimulus/threat into pt's visual field quadrants) 0=No visual loss 1=Partial hemianopia 2=Complete hemianopia 3=Bilateral hemianopia (blind) 2 (RHH) 4. Facial Paresis (Show teeth, raise eyebrows and squeeze eyes shut) 0=Normal 1=Minor 2=Partial 3=Complete 0 5a. Motor Left Arm (Elevate arm to 90 deg if sitting, 45 if supine, hold for 10 seconds) 0=No drift 1=Drift 2=Can't resist gravity 3=No effort against gravity 4=No movement X= Untestable (joint fused or amputaion) 0 5b. Motor Right Arm As in 5a 0 6a. Motor Left Leg (Elevate to 30 deg with pt supine, hold for 5 seconds) As in 5a 0 6b. Motor Right Leg As in 5a 0 7. Limb Ataxia (finger, nose, ataxia out of proportion to weakness) 0=No ataxia 1=Partial loss 2=Severe loss 0 8. Sensory (pin prick to face, arm, trunk, leg. Compare side to side) 0=Normal 1=Partial loss 2=Severe loss 0 9. Best Language (name an item, describe a picture, read a sentence) 0=No aphasia 1=Mild to moderate aphasia 2=Severe aphasia 3=Mute 0 10. Dysarthria (Evaluate speech clarity by patient repeating listed words) 0=Normal artic ulation 1=Mild to moderate slurring 2=Near to unintelligible or worse X=Intubated or other physical barrier 1 11. Extinction and Inattention (Use information from prior testing to identify neglect or d ouble simultaneous stimuli testing) 0=No neglect 1=Partial neglect 2=Complete neglect 0 TOTAL SCORE: 3 Neurological: Mental Status: General: Normal activity, good hygiene, appropriate appearance. Level of consciousness: Awake, alert. Orientation: Oriented to person, place, time and situation. Concentration/Attention Span: Normal. Comprehension/Praxis: Following commands Neglect: Normal double simultaneous stimulation. Fund of Knowledge/memory: Adequate recent and remote recall. Language: Mild dysarthria -Comprehension: Intact -Repetition: Intact -Naming: Intact Mood/Affect: Appropriate/congruent. Thought Content: Normal, no auditory or visual hallucinations. Insight/Judgement: Normal. Cranial Nerves: I: Not tested II: PERRL, RHH III, IV, : Gaze conjugate, EOMI V: Sensation intact and symmetric to light touch V1-V3 VII: Symmetric facial motor function bilaterally VIII: Intact to conversation IX: Palate elevates symmetrically X: Normal cough XI: Normal shrug bilaterally XII: Tongue protrudes midline Motor: Normal tone in all groups. RUE: No drift LUE: No drift RLE: No drift LLE: No drift Sensation: Light touch: Intact and symmetric in the bilateral upper and lower extremities. Coordination: Fine finger movements are of normal speed and fluency Finger to nose is of normal speed, no action tremor, and no end-point dysmetria Heel to yoon is without any ataxia Head: Left neck wound Eyes: No scleral icterus, conjunctiva pink. Mouth: Moist mucus membranes Cardiovascular: palpable pulses Respiratory: breathing comfortably on RA Labs: Chemistries last 72 hours (or 3 results) Recent Labs 10/07/18 0103 10/08/18 0831 10/08/18 1706 10/08/18 2214 10/09/18 0546 NA 140 -- 141 -- -- -- -- K 4.1 -- 4.4 -- -- -- -- CL 107 -- 113* -- -- -- -- BICARB 28 -- 22 -- -- -- -- BUN 21* -- 20 -- -- -- -- CR 1.25 -- 1.15 -- -- -- -- GLU 117* < > 88 < > 122* 81 78 CA 9.2 -- 8.4* -- -- -- -- < > = values in this interval not displayed. CBC with diff last 96 hours (or 3 results) Recent Labs 10/07/18 0103 10/07/18 0730 10/08/18 0454 WBC 11.17* 11.19* 9.49 RBC 4.97 4.74 4.68 HB 14.6 13.9 13.9 HCT 43.9 41.8 41.6 PLT 257 247 238 NEUTROPERC 57.2 -- -- LYMPHPERC 30.4 -- -- MONOPERC 8.1 -- -- BASOPERC 1.1 -- -- EOSPERC 3.0 -- -- Imaging: CTH/CTA head/neck 10/06/2018 : severe LICA stenosis just distal to the bifurcation, L P CA. MRI Brain: Scattered small areas of diffusion restriction in L parieto-occipital region, wa tershed. Generalized atrophy. Etiology: Symptomatic L ICA stenosis Vascular imaging: CTA LDL: 82, started atorva 40mg HgbA1C: 5.9 Tobacco: 1/2 ppd x20 years, motivated to quit ECHO: normal LV function, no shunt or thrombus Telemetry: NSR Swallow: pass Antithrombotic/anticoagulant: ASA 81 ACUTE CARE NURSE PT/OT/SURGERY AIDE: home with assist Assessment and Plan: 63 yo man with symptomatic L ICA stenosis with RNP transferred for consideration of C EA versus stent. No tPA due to time. Most likely atherosclerotic in etiology. Exam with impr ovement in RUE drift otherwise stable. Given patient has L neck wound and recent radiation therapy to that region, radiation necro sis on differential, however, CT neck 10/06 reviewed with radiology who had low suspicion of i nfiltrative process. # L MCA/RNP watershed infarct # L ICA stenosis s/p stent 10/09 # L RNP For L ICA stenosis, NSGY consulted and felt no CEA due to overlying radiation injury, stent ing would be preferable - groin precautions per INR - Loaded with Plavix, plan for DAPT for 1 month with ASA thereafter - SBP <180 - Hold home lisinopril-HCTZ - Hyralazine prn - Atorvastatin 40 mg daily - Maintain Telemetry - PT/OT/speech/swallow - Stroke SW # L neck wound s/p radiation for basal cell carcinoma Received "20x" radiation, most recently 10/02. - Wound care consulted # Painless Hematuria Started , 10/06. Has been intermittent. Juda-dark red blood observed, no clots. Impro ving with hydration per patient and . - Bladder scan Q6H, straight cath PRN for PVR >450 - Discussed with urology - unless passing obvious clots, will need outpatient hematuria wor kup. Recommended following up UA, bladder scan. If apollo clots observed, can consider at CT urogram. This patient has been staffed with Ryan Douglas MD, attending stroke physician, who agrees with the above assessment and plan. Lisseth Rivas MD Neurology Resident, PGY 2 Pgr [id number] eber, Deion Coates MD - 10/08/2018 3:36 PM PDT [facility] [place] [facility] of the [facility] Attending Physician: Deion Sommer MD Note Date: 10/08/2018 NAME: Guilherme Jorge POST SEDATION NOTE Guilherme Jorge is a 63 y.o. male who underwent diagnostic cerebral angiogram Complications: none Maximum level of sedation achieved during the procedure: 1 Minimally sedated, appropriate r esponse to voice Current level of sedation: *0 Awake and alert 24 Hour Vital Min/Max: Systolic (24hrs), Av , Min:122 , Max:172 Diastolic (24hrs), A v, Min:64, Max:106 LAST VITALS: BP 137/67 | Pulse 72 | Temp 37.1 C (98.8 F) | Resp 12 | Ht 1.753 m (5' 9") | Wt 81.1 kg (178 lb 12.7 oz) | SpO2 94% | BMI 26.40 kg/m | BSA 1.99 m AAOX3, follows commands. NEURO EXAM PERRLA, EOMI, mild right VF deficit Tongue Midline, mild right facial weakness right upper mild clumsy weakness Sensation grossly intact Access site: rightgroin {without evidence of hematoma. Groin dressing remains intact withou t evidence of bleeding noted. right eg and foot are warm and pink. The patient is recovered from moderate (conscious) sedation with an appropriate level of pa in control. Deion Sommer MD Interventional Neuroradiology eber, Deion Coates MD - 10/08/2018 2:20 PM PDT INPATIENT STROKE PROGRESS NOTE 10/08/18 HOSPITAL DAY: 2 I agree with the history, exam, assessment, and care plan outlined in the greenhouse laborer's n ote and have personally examined the patient. Guilherme Jorge is a 63 y.o. RIGHT handed male with tobacco abuse, HTN, HLD, recurrent skin cancer s/p MOHS surgery and L neck radiation with LKN evening of 10/04 who presented to OSH w ith RUE weakness and aphasia. Patient woke on 10/04 with right hand numbness and clumsiness, also developed slurred speech and word finding difficulty. Presented to OSH ED and was sent home. Symptoms worsened over the following day and on 10/05 they re-presented to OSH. CTA wi th severe LICA stenosis just distal to the bifurcation, L RNP. MRI demonstrating L pa rietooccipital ischemia/watershed infarct. He was started on heparin gtt and transferred f or consideration of carotid stent vs CEA. Has had right visual field cut since April. Completed a course of radiation to the left side of his neck on 10/02/18. Holding aspirin fo r the past 4 weeks. INTERVAL diagnostic cerebral angiogram with 60% stenosis of LICA heparin infusion stopped EXAM: BP (!) 146/96 | Pulse 53 | Temp 37.1 C (98.8 F) | Resp 12 | Ht 1.753 m (5' 9") | W t 81.1 kg (178 lb 12.7 oz) | SpO2 94% | BMI 26.40 kg/m | BSA 1.99 m Gen: NAD CV: RRR Resp: comfortable on RA MS: alert, interactive, no aphasia, no neglect CN: gaze primary, right visual field deficit, mild right facial weakness, mild dysarthria MOTOR: right upper clumsy with pronation without drift SENSORY: intact and symmetric in all 4 extremities COORDINATION: no ataxia NIHSS 3 mRs 2 baseline mRs 2 LABS: Lab Results Component Value Date INRPT 1.03 10/07/2018 Lab Results Component Value Date APTT 67.7 (H) 10/08/2018 Lab Results Component Value Date CHOL 148 10/07/2018 LDL 82 10/07/2018 HDL 37 10/07/2018 TRI 147 10/07/2018 No results found for: A1C IMAGING: CTA HEAD AND NECK ~70% stenosis of the proximal left ICA at the C3/4 vertebral body level mild right ICA stenosis variant left RNP MRI BRAIN left MCA, RNP, and left hemispheric watershed ischemic strokes DIAGNOSTIC CEREBRAL ANGIOGRAM This diagnostic cerebral angiogram demonstrates diffuse moderate to severe atheromatous dis ease of the cervicocerebral arteries. Most notable is a 60% stenosis of the left internal ca rotid artery just distal to its origin at the level of the superior C4 vertebral body and a 50% stenosis of the proximal M1 segment of the right middle cerebral artery. TTE + BUBBLE STUDY 1. The left [...] no prior exams available for comparison. Assessment: Left MCA, RNP, and left hemispheric watershed strokes on 10/04/2018. Etiology LICA stenosi s. Suspect stenosis is predominantly related to chronic atheromatous disease given 04/2018 s troke with related right visual field deficit predates recent neck radiation. Diagnostic cerebral angiogram 10/08 with diffuse moderate to severe cervicocerebral arthros clerotic vascular disease including left ICA stenosis of ~60% right MCA stenosis of ~50%. T he left anterior circulation is isolated. Proceeding with LICA stenting on 10/09/2018. Hematuria. Urology recommends outpatient evaluation. Plan: carotid stent 10/09 AM aspirin 325mg daily Plavix load 600mg then 75mg daily for 1 month atorvastatin 40mg daily permissive hypertension; SBP goal < 180mmHg maintain hydration with NS IVF at 75cc/hr telemetry monitoring SURGERY AIDE /PT/OT Social Work "stroke protocol" I spent 38 minutes on this case. More than 50% of time was spent in counseling or coordinat ion of stroke care. Stroke education was provided. This included counseling on stroke warn ing signs/symptoms, when to dial 911, stroke risk factor reduction, stroke medications, and follow-up plan. Deion Sommer MD Stroke Neurology La De Leon MD - 01/2019 12:35 PM PDT STROKE PROGRESS NOTE 10/08/18 Author: LA YEUNG MD Background: Guilherme Jorge is a 63 y.o. RIGHT handed male with HTN, HLD, recurrent skin c ancer s/p MOHS surgery and L neck radiation with LKN evening of 10/04 who presented to OSH wit h RUE weakness and aphasia. Patient woke on 10/04 with right hand numbness and clumsiness, a lso developed slurred speech and word finding difficulty. Presented to OSH ED and was sent h ome. Symptoms worsened over the following day and on 10/05 they re-presented to OSH. CTA w ith severe LICA stenosis just distal to the bifurcation, L RNP present. MRI demonstr ating L parietooccipital ischemia/watershed infarct. Started on heparin gtt and transferred for consideration of carotid stent vs CEA. Anticipating angiogram 4/7 AM. Interval Hx: -No acute events -Angio this AM, NPO since midnight, on heparin gtt up to that point -Exam stable, denies new focal neurologic deficits -Many questions regarding angio, stenting, stroke, etc - answered this AM -RUE drift improved Inpatient meds: Current Facility-Administered Medications Medication Dose Route Frequency acetaminophen (TYLENOL) tablet 650 mg 650 mg oral Q4H PRN aspirin tablet 325 mg 325 mg oral DAILY atorvastatin (LIPITOR) tablet 40 mg 40 mg oral DAILY atorvastatin (LIPITOR) tablet 80 mg 80 mg oral ONCE bisacodyl (DULCOLAX) suppository 10 mg 10 mg rectal DAILY PRN clopidogrel (PLAVIX) tablet 600 mg 600 mg oral ONCE [START ON 10/09/2018] clopidogrel (PLAVIX) tablet 75 mg 75 mg oral DAILY gabapentin (NEURONTIN) capsule 900 mg 900 mg oral TID HYDROcodone-acetaminophen (NORCO) 10-325 mg 1 tablet 1 tablet oral Q6H PRN ondansetron (ZOFRAN) tablet 8 mg 8 mg oral Q12H PRN pantoprazole (PROTONIX) tablet 20 mg 20 mg oral DAILY polyethylene glycol (MIRALAX) packet 34 g 34 g oral TID PRN senna-docusate (SENOKOT S) 8.6-50 mg 1 tablet 1 tablet oral BID sodium chloride 0.9 % (NS) IV infusion 75 mL/hr intravenous CONTINUOUS Exam: Last Vitals: BP 171/81 | Pulse 63 | Temp 37 C (98.6 F) | Resp 12 | Ht 1.753 m (5' 9 ") | Wt 81.1 kg (178 lb 12.7 oz) | SpO2 96% | BMI 26.40 kg/m | BSA 1.99 m 24 Hour Vital Min/Max: Systolic (24hrs), Av , Min:122 , Max:172 Diastolic (24hrs), Av, Min:64, Max:102 Pulse Min: 59 Max: 75 Temp Min: 36.6 C (97.9 F) Max: 37 C (98.6 F) Resp Min: 12 Max: 17 SpO2 Min: 92 % Max: 97 % Intake/Output Summary (Last 24 hours) at 10/08/18 1236 Last data filed at 10/08/18 1119 Gross per 24 hour Intake 1373.58 ml Output 875 ml Net 498.58 ml Constitutional:WD/WN, NAD Neurological: Category Description Score 1a. Level of Consciousness 0=Alert 1=Drowsy 2=Stuperous 3=Coma 0 1b. LOC Questions (month, age) 0=Both correct 1=One correct 2=Incorrect 0 1c. LOC Commands (Open/close eyes, make fist, let go) 0=Obeys both correctly 1=Obeys one correctly 2=Incorrect 0 2. Best Gaze (Eyes open, patient follows examiner's finger or face) 0=Normal 1=Partial gaze palsy 2=Forced gaze deviation 0 3. Visual Allison (Introduce visual stimulus/threat into pt's visual field quadrants) 0=No visual loss 1=Partial hemianopia 2=Complete hemianopia 3=Bilateral hemianopia (blind) 2 ([facility]) 4. Facial Paresis (Show teeth, raise eyebrows and squeeze eyes shut) 0=Normal 1=Minor 2=Partial 3=Complete 0 5a. Motor Left Arm (Elevate arm to 90 deg if sitting, 45 if supine, hold for 10 seconds) 0=No drift 1=Drift 2=Can't resist gravity 3=No effort against gravity 4=No movement X= Untestable (joint fused or amputaion) 0 5b. Motor Right Arm As in 5a 0 6a. Motor Left Leg (Elevate to 30 deg with pt supine, hold for 5 seconds) As in 5a 0 6b. Motor Right Leg As in 5a 0 7. Limb Ataxia (finger, nose, ataxia out of proportion to weakness) 0=No ataxia 1=Partial loss 2=Severe loss 0 8. Sensory (pin prick to face, arm, trunk, leg. Compare side to side) 0=Normal 1=Partial loss 2=Severe loss 0 9. Best Language (name an item, describe a picture, read a sentence) 0=No aphasia 1=Mild to moderate aphasia 2=Severe aphasia 3=Mute 0 10. Dysarthria (Evaluate speech clarity by patient repeating listed words) 0=Normal artic ulation 1=Mild to moderate slurring 2=Near to unintelligible or worse X=Intubated or other physical barrier 1 11. Extinction and Inattention (Use information from prior testing to identify neglect or d ouble simultaneous stimuli testing) 0=No neglect 1=Partial neglect 2=Complete neglect 0 TOTAL SCORE: 3 Neurological: Mental Status: General: Normal activity, good hygiene, appropriate appearance. Level of consciousness: Awake, alert. Orientation: Oriented to person, place, time and situation. Concentration/Attention Span: Normal. Comprehension/Praxis: Following commands Neglect: Normal double simultaneous stimulation. Fund of Knowledge/memory: Adequate recent and remote recall. Language: Mild dysarthria -Comprehension: Intact -Repetition: Intact -Naming: Intact Mood/Affect: Appropriate/congruent. Thought Content: Normal, no auditory or visual hallucinations. Insight/Judgement: Normal. Cranial Nerves: I: Not tested II: PERRL, RHH III, IV, : Gaze conjugate, EOMI V: Sensation intact and symmetric to light touch V1-V3 VII: Symmetric facial motor function bilaterally VIII: Intact to conversation IX: Palate elevates symmetrically X: Normal cough XI: Normal shrug bilaterally XII: Tongue protrudes midline Motor: Normal tone in all groups. RUE: No drift LUE: No drift RLE: No drift LLE: No drift Sensation: Light touch: Intact and symmetric in the bilateral upper and lower extremities. Coordination: Fine finger movements are of normal speed and fluency Finger to nose is of normal speed, no action tremor, and no end-point dysmetria Heel to yoon is without any ataxia Head: Left neck has would covered by wet bandage (s/p Eyes: No scleral icterus, conjunctiva pink. Mouth: Moist mucus membranes Cardiovascular: palpable pulses Respiratory: breathing comfortably on RA Labs: Chemistries last 72 hours (or 3 results) Recent Labs 10/07/18 0103 10/07/18 2236 10/08/18 0831 10/08/18 1004 NA 140 -- -- 141 -- K 4.1 -- -- 4.4 -- CL 107 -- -- 113* -- BICARB 28 -- -- 22 -- BUN 21* -- -- 20 -- CR 1.25 -- -- 1.15 -- GLU 117* < > 97 88 92 CA 9.2 -- -- 8.4* -- < > = values in this interval not displayed. CBC with diff last 96 hours (or 3 results) Recent Labs 10/07/18 01010/07/18 0730 10/08/18 0454 WBC 11.17* 11.19* 9.49 RBC 4.97 4.74 4.68 HB 14.6 13.9 13.9 HCT 43.9 41.8 41.6 PLT 257 247 238 NEUTROPERC 57.2 -- -- LYMPHPERC 30.4 -- -- MONOPERC 8.1 -- -- BASOPERC 1.1 -- -- EOSPERC 3.0 -- -- Imaging: CTH/CTA head/neck 10/06/2018 : severe LICA stenosis just distal to the bifurcation, L P CA. MRI Brain: Scattered small areas of diffusion restriction in L parieto-occipital region, wa tershed. Generalized atrophy. Assessment: 63 yo man with symptomatic L ICA stenosis with RNP transferred for consideration of C EA versus stent. No tPA due to time. Most likely atherosclerotic in etiology. Exam with imp rovement in RUE drift otherwise stable. Given patient has L neck wound and recent radiation therapy to that region, radiation necro sis on differential, however, CT neck 10/06 reviewed with radiology who had low suspicion of i nfiltrative process. NSGY consulted and felt no CEA due to overlying radiation injury, ABHAY would be preferable. INR planning angio today and ABHAY placement likely 10/09. Was on heparin gtt on admission, stop ped for angio this AM. Awaiting final angio results, however, per their recs will load with DAPT as below and plan for ABHAY 10/09 AM. Plan: #L ICA stenosis - post angio - STOP heparin - groin precautions per INR - Planning for carotid stenting 10/09 AM: - Clopidogrel 600mg now then 75g daily thereafter - c/w ASA 81mg daily - NPO at midnight - NSGY/INR consulted, we appreciate their assistance - SBP <180 - Hold home lisinopril-HCTZ - Hyralazine prn - Atorvastatin 40 mg daily - f/u HgbA1c, Fasting lipids - Maintain Telemetry - PT/OT/speech/swallow eval. When appropriate - Stroke SW #L neck wound s/p radiation for basal cell carcinoma Received "20x" radiation, most recently 10/02. Requested onc records. - Wound care consulted #Painless Hematuria Started . Has been intermittent. Juda-dark red blood observed, no clots. UA with is olated red cells. Improving with hydration per patient and . - Bladder scan Q6H, straight cath PRN for PVR >450 - Discussed with urology - unless passing obvious clots, considered as outpatient hematuria workup. Recommended following up UA, bladder scan. If apollo clots observed, can consider at CT urogram. This patient has been staffed with Deion Sommer MD, attending stroke physician, who agr ees with the above assessment and plan. LA YEUNG MD Neurology Resident, PGY 3 Pgr [id number] eber, Deion Coates MD - 10/08/2018 11:50 AM PDT [facility] of the [facility] Note Date: 10/08/2018 Admission Date: 10/06/2018 GUILHERME JORGE, Hospital Day #2 BRIEF PROCEDURE NOTE Preprocedure Consent: reviewed prior to procedure Patient identity confirmed per policy Team Pause: Immediatly prior to the procedure a pause per protocol was called. A pause verifies correct patient, procedure, equipment, cad application support specialist and site/side marked as required if indicated . Attending(s): Ryan Douglas MD Genetic Scientist(s): Deion Sommer MD Preoperative Diagnosis: left MCA stroke LICA stenosis Postoperative Diagnosis: left MCA stroke LICA stenosis right MCA stenosis Sedation type: moderate sedation Procedure: diagnostic cerebral angiogram Complications: None; patient tolerated the procedure well. EBL: 20mL Preliminary Impression: approximately 60% stenosis of the LICA at the level of C3/4 approximately 50% stenosis of the right MCA multifocal moderate to severe cervicocerebral vascular atherosclerotic disease high right femoral bifurcation see dictation for full procedural details Access site: right Closure: Manual compression Pt to lie flat x 4 hours Plan: Groin Precautions Neuro checks Further care per Stroke Deion Sommer MD Rosalind Granda - 2018 4:45 PM PDTTransthoracic echocardiogram completed. Final report to follow. La De Leon MD - 10/07/2018 1 0:19 AM PDT STROKE PROGRESS NOTE 10/07/18 Author: LA YEUNG MD Hospital Day # 1 Background: Guilherme Jorge is a 63 y.o. RIGHT handed male with HTN, HLD, recurrent skin c ancer s/p MOHS surgery and L neck radiation with LKN evening of 10/04 who presented to OSH wit h RUE weakness and aphasia. Patient woke on 10/04 with right hand numbness and clumsiness, a lso developed slurred speech and word finding difficulty. Presented to OSH ED and was sent h ome. Symptoms worsened over the following day and on 10/05 they re-presented to OSH. CTA w ith severe LICA stenosis just distal to the bifurcation, L RNP present. MRI demonstr ating L parietooccipital ischemia/watershed infarct. Started on heparin gtt and transferred for consideration of carotid stent vs CEA. Anticipating angiogram 4/7 AM. Interval Hx: -Admitted overnight -on heparin gtt -discussing further angio plans with INR -subjectively no changes since admission -patient/ concerned about painless hematuria which he developed Inpatient meds: Current Facility-Administered Medications Medication Dose Route Frequency acetaminophen (TYLENOL) tablet 650 mg 650 mg oral Q4H PRN aspirin chewable tablet 81 mg 81 mg oral DAILY atorvastatin (LIPITOR) tablet 40 mg 40 mg oral DAILY bisacodyl (DULCOLAX) suppository 10 mg 10 mg rectal DAILY PRN gabapentin (NEURONTIN) capsule 900 mg 900 mg oral TID heparin 25,000 Units in NaCl 0.9 % (NS) 250 mL (100 Units/mL) IV infusion 1-2,500 Unit s/hr intravenous CONTINUOUS hydrALAZINE (APRESOLINE) tablet 10 mg 10 mg oral Q6H PRN HYDROcodone-acetaminophen (NORCO) 10-325 mg 1 tablet 1 tablet oral Q6H PRN ondansetron (ZOFRAN) tablet 8 mg 8 mg oral Q12H PRN pantoprazole (PROTONIX) tablet 20 mg 20 mg oral DAILY polyethylene glycol (MIRALAX) packet 34 g 34 g oral TID PRN senna-docusate (SENOKOT S) 8.6-50 mg 1 tablet 1 tablet oral BID Exam: Last Vitals: BP 158/89 (BP Location: Right upper arm, Patient Position: Lying on back) | P ulse 63 | Temp 36.5 C (97.7 F) | Resp 16 | Ht 1.753 m (5' 9") | Wt 81.1 kg (178 lb 1 2.7 oz) | SpO2 93% | BMI 26.40 kg/m | BSA 1.99 m 24 Hour Vital Min/Max: Systolic (24hrs), Av , Min:126 , Max:184 Diastolic (24hrs), Av, Min:70, Max:92 Pulse Min: 63 Max: 68 Temp Min: 36.5 C (97.7 F) Max: 36.7 C (98.1 F) Resp Min: 16 Max: 20 SpO2 Min: 93 % Max: 97 % Intake/Output Summary (Last 24 hours) at 10/07/18 1020 Last data filed at 10/07/18 0932 Gross per 24 hour Intake 330.15 ml Output 675 ml Net -344.85 ml Constitutional:WD/WN, NAD Neurological: Category Description Score 1a. Level of Consciousness 0=Alert 1=Drowsy 2=Stuperous 3=Coma 0 1b. LOC Questions (month, age) 0=Both correct 1=One correct 2=Incorrect 0 1c. LOC Commands (Open/close eyes, make fist, let go) 0=Obeys both correctly 1=Obeys one correctly 2=Incorrect 0 2. Best Gaze (Eyes open, patient follows examiner's finger or face) 0=Normal 1=Partial gaze palsy 2=Forced gaze deviation 0 3. Visual Allison (Introduce visual stimulus/threat into pt's visual field quadrants) 0=No visual loss 1=Partial hemianopia 2=Complete hemianopia 3=Bilateral hemianopia (blind) 2 ([facility]) 4. Facial Paresis (Show teeth, raise eyebrows and squeeze eyes shut) 0=Normal 1=Minor 2=Partial 3=Complete 0 5a. Motor Left Arm (Elevate arm to 90 deg if sitting, 45 if supine, hold for 10 seconds) 0=No drift 1=Drift 2=Can't resist gravity 3=No effort against gravity 4=No movement X= Untestable (joint fused or amputaion) 0 5b. Motor Right Arm As in 5a 1 6a. Motor Left Leg (Elevate to 30 deg with pt supine, hold for 5 seconds) As in 5a 0 6b. Motor Right Leg As in 5a 0 7. Limb Ataxia (finger, nose, ataxia out of proportion to weakness) 0=No ataxia 1=Partial loss 2=Severe loss 0 8. Sensory (pin prick to face, arm, trunk, leg. Compare side to side) 0=Normal 1=Partial loss 2=Severe loss 0 9. Best Language (name an item, describe a picture, read a sentence) 0=No aphasia 1=Mild to moderate aphasia 2=Severe aphasia 3=Mute 0 10. Dysarthria (Evaluate speech clarity by patient repeating listed words) 0=Normal artic ulation 1=Mild to moderate slurring 2=Near to unintelligible or worse X=Intubated or other physical barrier 1 11. Extinction and Inattention (Use information from prior testing to identify neglect or d ouble simultaneous stimuli testing) 0=No neglect 1=Partial neglect 2=Complete neglect 0 TOTAL SCORE: 4 Neurological: Mental Status: General: Normal activity, good hygiene, appropriate appearance. Level of consciousness: Awake, alert. Orientation: Oriented to person, place, time and situation. Concentration/Attention Span: Normal. Comprehension/Praxis: Following commands Neglect: Normal double simultaneous stimulation. Fund of Knowledge/memory: Adequate recent and remote recall. Language: Mild dysarthria -Comprehension: Intact -Repetition: Intact -Naming: Intact Mood/Affect: Appropriate/congruent. Thought Content: Normal, no auditory or visual hallucinations. Insight/Judgement: Normal. Cranial Nerves: I: Not tested II: PERRL, RHH III, IV, : Gaze conjugate, EOMI V: Sensation intact and symmetric to light touch V1-V3 VII: Symmetric facial motor function bilaterally VIII: Intact to conversation IX: Palate elevates symmetrically X: Normal cough XI: Normal shrug bilaterally XII: Tongue protrudes midline Motor: Normal tone in all groups. RUE: Mild drift LUE: No drift RLE: No drift LLE: No drift Sensation: Light touch: Intact and symmetric in the bilateral upper and lower extremities. Coordination: Fine finger movements are of normal speed and fluency Finger to nose is of normal speed, no action tremor, and no end-point dysmetria Heel to yoon is without any ataxia Head: Left neck has would covered by wet bandage (s/p Eyes: No scleral icterus, conjunctiva pink. Mouth: Moist mucus membranes Cardiovascular: palpable pulses Respiratory: breathing comfortably on RA Labs: Chemistries last 72 hours (or 3 results) Recent Labs 10/07/18 0047 10/07/18 0103 10/07/18 0837 NA -- 140 -- K -- 4.1 -- CL -- 107 -- BICARB -- 28 -- BUN -- 21* -- CR -- 1.25 -- GLU 113* 117* 90 CA -- 9.2 -- CBC with diff last 96 hours (or 3 results) Recent Labs 10/07/18 0103 10/07/18 0730 WBC 11.17* 11.19* RBC 4.97 4.74 HB 14.6 13.9 HCT 43.9 41.8 PLT 257 247 NEUTROPERC 57.2 -- LYMPHPERC 30.4 -- MONOPERC 8.1 -- BASOPERC 1.1 -- EOSPERC 3.0 -- Imaging: CTH/CTA head/neck 10/06/2018 : severe LICA stenosis just distal to the bifurcation, L P CA. MRI Brain: Scattered small areas of diffusion restriction in L parieto-occipital region, wa tershed. Generalized atrophy. Assessment: 63 yo man with symptomatic L ICA stenosis with RNP transferred for consideration of C EA versus stent. No tPA due to time. Most likely atherosclerotic in etiology. Given patient has L neck wound and recent radiation therapy to that region, radiation necrosis is a biju rn. Reviewed CT neck 10/06 with radiology fellow - felt that there is no sign of infiltrative process or local adenopathy. Does have superficial injury likely due to radiation. Overall l ow suspicion of infiltrative process. We have consulted our NSGY colleagues to help determine if he would be a candidate for CEA or if ABHAY would be preferable given his local malignancy and radiation history. Currently an ticipating angiogram 10/08, final plans pending INR discussion, NSGY input. Regardless, will c ontinue heparin gtt and make NPO at midnight tonight. Plan: #L ICA stenosis - c/w heparin gtt, stroke protocol - NPO at midnight, anticipating angio 10/08 AM - NSGY consulted - SBP <180 - Hpld home lisinopril-HCTZ - Hyralazine prn - Aspirin 81 mg - Atorvastatin 40 mg daily - f/u HgbA1c, Fasting lipids - TTE w/ bubble - Maintain Telemetry - PT/OT/speech/swallow eval. When appropriate - Stroke SW - f/u Multiple records requests placed: [facility] ([place], [place]), oncology records from [place], [place]. [facility] to fax records to [facility]. #L neck wound s/p radiation for basal cell carcinoma Received "20x" radiation, most recently 10/02. Requested onc records. -Wound care consulted - will need careful cleaning of wound -f/u onc records #Painless Hematuria Started . Has been intermittent. Juda-dark red blood observed, no clots. -UA collected w/ micro -Bladder scan Q6H, straight cath PRN for PVR >450 -Discussed with urology - unless passing obvious clots, considered as outpatient hematuria workup. Recommended following up UA, bladder scan. If apollo clots observed, can consider at CT urogram. This patient has been staffed with Deion Sommer MD, attending stroke physician, who agr ees with the above assessment and plan. LA YEUNG MD Neurology Resident, PGY 3 Pgr [id number] eber, Deion Coates MD - 10/07/2018 7:51 AM PDT INPATIENT STROKE PROGRESS NOTE 10/07/18 HOSPITAL DAY: 1 I agree with the history, exam, assessment, and care plan outlined in the greenhouse laborer's n ote and have personally examined the patient. Guilherme Jorge is a 63 y.o. RIGHT handed male with tobacco abuse, HTN, HLD, recurrent skin cancer s/p MOHS surgery and L neck radiation with LKN evening of 10/04 who presented to OSH w ith RUE weakness and aphasia. Patient woke on 10/04 with right hand numbness and clumsiness, also developed slurred speech and word finding difficulty. Presented to OSH ED and was sent home. Symptoms worsened over the following day and on 10/05 they re-presented to OSH. CTA wi th severe LICA stenosis just distal to the bifurcation, L RNP. MRI demonstrating L pa rietooccipital ischemia/watershed infarct. He was started on heparin gtt and transferred f or consideration of carotid stent vs CEA. Has had right visual field cut since April. Completed a course of radiation to the left side of his neck on 10/02/18. Holding aspirin fo r the past 4 weeks. INTERVAL admitted to 10K heparin infusion Cr 1.25 LDL 82 on home atorvastatin 20mg EXAM: BP 126/70 (BP Location: Right upper arm, Patient Position: Lying on back) | Pulse 68 | Te mp 36.7 C (98.1 F) | Resp 19 | Ht 1.753 m (5' 9") | Wt 81.1 kg (178 lb 12.7 oz) | Sp O2 95% | BMI 26.40 kg/m | BSA 1.99 m Gen: NAD CV: RRR Resp: comfortable on RA MS: alert, interactive, no aphasia, no neglect CN: gaze primary, RHH, mild right facial weakness, dysarthric MOTOR: right upper clumsy with pronation without drift SENSORY: intact and symmetric in all 4 extremities COORDINATION: no ataxia NIHSS4 mRs 2 baseline mRs 2 LABS: Lab Results Component Value Date INRPT 1.03 10/07/2018 Lab Results Component Value Date APTT 41.3 (H) 10/07/2018 Lab Results Component Value Date CHOL 148 10/07/2018 LDL 82 10/07/2018 HDL 37 10/07/2018 TRI 147 10/07/2018 No results found for: A1C IMAGING: CTA HEAD AND NECK ~70% stenosis of the proximal left ICA at the C3/4 vertebral body level mild right ICA stenosis variant left RNP MRI BRAIN left MCA, RNP, and left hemispheric watershed ischemic strokes Assessment: Left MCA, RNP, and left hemispheric watershed strokes on 10/04/2018. Etiology LICA stenosi s. Suspect stenosis is predominantly related to chronic atheromatous disease given 04/2018 s troke with related right visual field deficit predates recent neck radiation. Proceeding wi th early intervention for symptomatic LICA stenosis. Plan: continue heparin infusion stroke protocol aspirin 81mg daily atorvastatin 40mg daily permissive hypertension; SBP goal < 180mmHg TTE + bubble study telemetry monitoring Neurosurgery consult for CEA angiogram AM of 10/08/2018 NPO at midnight maintain hydration curbside Urology re hematuria SURGERY AIDE/PT/OT Social Work "stroke protocol" I spent 72 minutes on this case. More than 50% of time was spent in counseling or coordinat ion of stroke care. Stroke education was provided. This included counseling on stroke warn ing signs/symptoms, when to dial 911, stroke risk factor reduction, stroke medications, and follow-up plan. Deion Sommer MD Stroke Neurology documented in this e ncounter Plan of Treatment Not on filedocumented as of this encounter Procedures + +--------+ + + + | Procedure Name | Priori | Date/Time | Associated Diagnosis | Comments | | | ty | | | | + +--------+ + + + | CBC (HEMOGRAM) ONLY | Urgent | 10/10/2018 | | Results for this | | | | 12:27 AM | | procedure are in the | | | | PDT | | results section. | + +--------+ + + + | BASIC METABOLIC SET | Urgent | 10/10/2018 | | Results for this | | (NA, K, CL, TCO2, | | 12:27 AM | | procedure are in the | | BUN, CR, GLU, CA) | | PDT | | results section. | + +--------+ + + + | CBC ONLY | Urgent | 10/10/2018 | | Results for this | | | | 12:27 AM | | procedure are in the | | | | PDT | | results section. | + +--------+ + + + | CAROTID STENT | Routin | 10/09/2018 | | Results for this | | PLACEMENT | e | 10:53 AM | | procedure are in the | | | | PDT | | results section. | + +--------+ + + + | IR NEURO CAROTID | Routin | 10/09/2018 | | Results for this | | STENT | e | 10:35 AM | | procedure are in the | | | | PDT | | results section. | + +--------+ + + + | ACT, POC | Routin | 10/09/2018 | Acute ischemic | Results for this | | | e | 10:11 AM | left RNP stroke | procedure are in the | | | | PDT | (HCC) | results section. | + +--------+ + + + | ACT, POC | Routin | 10/09/2018 | Acute ischemic | Results for this | | | e | 9:54 AM | left RNP stroke | procedure are in the | | | | PDT | (HCC) | results section. | + +--------+ + + + | CAPILLARY BLOOD | Routin | 10/09/2018 | Acute ischemic | Results for this | | GLUCOSE (NO CHG), | e | 5:46 AM | left RNP stroke | procedure are in the | | POC | | PDT | (HCC) | results section. | + +--------+ + + + | CBC (HEMOGRAM) ONLY | Routin | 10/09/2018 | | Results for this | | | e | 5:29 AM | | procedure are in the | | | | PDT | | results section. | + +--------+ + + + | BASIC METABOLIC SET | Routin | 10/09/2018 | | Results for this | | (NA, K, CL, TCO2, | e | 5:29 AM | | procedure are in the | | BUN, CR, GLU, CA) | | PDT | | results section. | + +--------+ + + + | CBC ONLY | Routin | 10/09/2018 | | Results for this | | | e | 5:29 AM | | procedure are in the | | | | PDT | | results section. | + +--------+ + + + | CAPILLARY BLOOD | Routin | 10/08/2018 | Acute ischemic | Results for this | | GLUCOSE (NO CHG), | e | 10:14 PM | left RNP stroke | procedure are in the | | POC | | PDT | (HCC) | results section. | + +--------+ + + + | CAPILLARY BLOOD | Routin | 10/08/2018 | Acute ischemic | Results for this | | GLUCOSE (NO CHG), | e | 5:06 PM | left RNP stroke | procedure are in the | | POC | | PDT | (HCC) | results section. | + +--------+ + + + | CAPILLARY BLOOD | Routin | 10/08/2018 | Acute ischemic | Results for this | | GLUCOSE (NO CHG), | e | 1:09 PM | left RNP stroke | procedure are in the | | POC | | PDT | (HCC) | results section. | + +--------+ + + + | IR NEURO ANGIOGRAM | Routin | 10/08/2018 | | Results for this | | CEREBRAL | e | 11:20 AM | | procedure are in the | | | | PDT | | results section. | + +--------+ + + + | CAPILLARY BLOOD | Routin | 10/08/2018 | Acute ischemic | Results for this | | GLUCOSE (NO CHG), | e | 10:04 AM | left RNP stroke | procedure are in the | | POC | | PDT | (HCC) | results section. | + +--------+ + + + | BASIC METABOLIC SET | Routin | 10/08/2018 | | Results for this | | (NA, K, CL, TCO2, | e | 8:31 AM | | procedure are in the | | BUN, CR, GLU, CA) | | PDT | | results section. | + +--------+ + + + | CBC (HEMOGRAM) ONLY | Urgent | 10/08/2018 | | Results for this | | | | 4:54 AM | | procedure are in the | | | | PDT | | results section. | + +--------+ + + + | CBC ONLY | Urgent | 10/08/2018 | | Results for this | | | | 4:54 AM | | procedure are in the | | | | PDT | | results section. | + +--------+ + + + | APTT (ACT. PART. | Urgent | 10/08/2018 | | Results for this | | THROMBO TIME) | | 4:54 AM | | procedure are in the | | | | PDT | | results section. | + +--------+ + + + | CARDIOLOGY | | 10/08/2018 | | Results for this | | | | 12:00 AM | | procedure are in the | | | | PDT | | results section. | + +--------+ + + + | CARDIOLOGY | | 10/08/2018 | | Results for this | | | | 12:00 AM | | procedure are in the | | | | PDT | | results section. | + +--------+ + + + | CAPILLARY BLOOD | Routin | 10/07/2018 | Acute ischemic | Results for this | | GLUCOSE (NO CHG), | e | 10:36 PM | left RNP stroke | procedure are in the | | POC | | PDT | ([facility]) | results section. | + +--------+ + + + | APTT (ACT. PART. | Urgent | 10/07/2018 | | Results for this | | THROMBO TIME) | | 8:46 PM | | procedure are in the | | | | PDT | | results section. | + +--------+ + + + | CAPILLARY BLOOD | Routin | 10/07/2018 | Acute ischemic | Results for this | | GLUCOSE (NO CHG), | e | 5:41 PM | left RNP stroke | procedure are in the | | POC | | PDT | ([facility]) | results section. | + +--------+ + + + | TRANSTHORACIC | Routin | 10/07/2018 | | Results for this | | ECHOCARDIOGRAM, | e | 3:46 PM | | procedure are in the | | ADULT | | PDT | | results section. | + +--------+ + + + | APTT (ACT. PART. | Urgent | 10/07/2018 | | Results for this | | THROMBO TIME) | | 2:21 PM | | procedure are in the | | | | PDT | | results section. | + +--------+ + + + | UA, DIPSTICK ONLY | Routin | 10/07/2018 | | Results for this | | | e | 1:47 PM | | procedure are in the | | | | PDT | | results section. | + +--------+ + + + | URINE, MICROSCOPIC | Routin | 10/07/2018 | | Results for this | | EXAM | e | 1:47 PM | | procedure are in the | | | | PDT | | results section. | + +--------+ + + + | URINE SCREEN FOR | Routin | 10/07/2018 | | Results for this | | CULTURE | e | 1:47 PM | | procedure are in the | | | | PDT | | results section. | + +--------+ + + + | CAPILLARY BLOOD | Routin | 10/07/2018 | Acute ischemic | Results for this | | GLUCOSE (NO CHG), | e | 1:35 PM | left RNP stroke | procedure are in the | | POC | | PDT | ([facility]) | results section. | + +--------+ + + + | CAPILLARY BLOOD | Routin | 10/07/2018 | Acute ischemic | Results for this | | GLUCOSE (NO CHG), | e | 8:37 AM | left RNP stroke | procedure are in the | | POC | | PDT | (HCC) | results section. | + +--------+ + + + | APTT (ACT. PART. | Urgent | 10/07/2018 | | Results for this | | THROMBO TIME) | | 8:08 AM | | procedure are in the | | | | PDT | | results section. | + +--------+ + + + | CBC (HEMOGRAM) ONLY | Urgent | 10/07/2018 | | Results for this | | | | 7:30 AM | | procedure are in the | | | | PDT | | results section. | + +--------+ + + + | CBC ONLY | Urgent | 10/07/2018 | | Results for this | | | | 7:30 AM | | procedure are in the | | | | PDT | | results section. | + +--------+ + + + | CBC AND AUTO DIFF | Routin | 10/07/2018 | | Results for this | | | e | 1:03 AM | | procedure are in the | | | | PDT | | results section. | + +--------+ + + + | INR | Urgent | 10/07/2018 | | Results for this | | | | 1:03 AM | | procedure are in the | | | | PDT | | results section. | + +--------+ + + + | CBC, WITH | Routin | 10/07/2018 | | Results for this | | DIFFERENTIAL | e | 1:03 AM | | procedure are in the | | | | PDT | | results section. | + +--------+ + + + | COMPLETE METABOLIC | Routin | 10/07/2018 | | Results for this | | SET | e | 1:03 AM | | procedure are in the | | (NA,K,CL,CO2,BUN,CRE | | PDT | | results section. | | AT,GLUC,CA,AST,ALT,B | | | | | | ISHMAEL TOTAL,ALK | | | | | | PHOS,ALB,PROT TOTAL) | | | | | + +--------+ + + + | APTT (ACT. PART. | Urgent | 10/07/2018 | | Results for this | | THROMBO TIME) | | 1:03 AM | | procedure are in the | | | | PDT | | results section. | + +--------+ + + + | LIPID SET (TRIG, T | Routin | 10/07/2018 | | Results for this | | CHOL, HDL, CALC LDL) | e | 1:03 AM | | procedure are in the | | | | PDT | | results section. | + +--------+ + + + | HEMOGLOBIN A1C, | Routin | 10/07/2018 | | Results for this | | BLOOD | e | 1:03 AM | | procedure are in the | | | | PDT | | results section. | + +--------+ + + + | CAPILLARY BLOOD | Routin | 10/07/2018 | Acute ischemic | Results for this | | GLUCOSE (NO CHG), | e | 12:47 AM | left RNP stroke | procedure are in the | | POC | | PDT | (HCC) | results section. | + +--------+ + + + | CARDIOLOGY | | 10/07/2018 | | Results for this | | | | 12:00 AM | | procedure are in the | | | | PDT | | results section. | + +--------+ + + + documented in this encounter Results CBC (HEMOGRAM) ONLY (10/10/2018 12:27 AM PDT) + + + + + + | Component | Value | Ref Range | Performed | Pathologist | | | | | At | Signature | + + + + + + | WHITE CELL | 10.52 | 3.50 - 10.80 | [facility] | | | COUNT | | K/cu mm | LABORATORY | | | | | | SERVICES, | | | | | | CORE | | + + + + + + | RED CELL | 4.32 (L) | 4.50 - 6.00 | [facility] | | | COUNT | | M/cu mm | LABORATORY | | | | | | SERVICES, | | | | | | CORE | | + + + + + + | HEMOGLOBIN | 12.8 (L) | 13.5 - 17.5 | [facility] | | | | | g/dL | LABORATORY | | | | | | SERVICES, | | | | | | CORE | | + + + + + + | HEMATOCRIT | 37.2 (L) | 41.0 - 53.0 % | [facility] | | | | | | LABORATORY | | | | | | SERVICES, | | | | | | CORE | | + + + + + + | MCV | 86.1 | 80.0 - 100.0 fL | [facility] | | | | | | LABORATORY | | | | | | SERVICES, | | | | | | CORE | | + + + + + + | MCHC | 34.4 | 32.0 - 36.0 | [facility] | | | | | g/dL | LABORATORY | | | | | | SERVICES, | | | | | | CORE | | + + + + + + | RDW SD | 38.9 | 35.1 - 46.3 fL | [facility] | | | | | | LABORATORY | | | | | | SERVICES, | | | | | | CORE | | + + + + + + | PLATELET | 221 | 150 - 400 K/cu | [facility] | | | COUNT | | mm | LABORATORY | | | | | | SERVICES, | | | | | | CORE | | + + + + + + | MPV | 9.7 | 9.7 - 12.3 fL | [facility] | | | | | | LABORATORY | | | | | | SERVICES, | | | | | | CORE | | + + + + + + | NRBC% | 0.0 | 0.0 - 0.3 % | [facility] | | | | | | LABORATORY | | | | | | SERVICES, | | | | | | CORE | | + + + + + + | NRBC# | 0.00 | 0.00 - 0.02 | [facility] | | | | | K/cu mm | LABORATORY | | | | | | SERVICES, | | | | | | CORE | | + + + + + + + + | Specimen | + + | Blood - Blood | | (substance) | + + + + + + + | Performing | Address | City/State/Zipcode | Phone Number | | Organization | | | | + + + + + | [facility] | [address] | [place] [address] | | | SERVICES, CORE | [address] | | | + + + + + BASIC METABOLIC SET (NA, K, CL, TCO2, BUN, CR, GLU, CA) (10/10/2018 12:27 AM PDT) + +---------+ + + + | Component | Value | Ref Range | Performed | Pathologist | | | | | At | Signature | + +---------+ + + + | GLUCOSE, | 88 | 70 - 99 mg/dL | [facility] | | | PLASMA | | | LABORATORY | | | (LAB) | | | SERVICES, | | | | | | CORE | | + +---------+ + + + | BUN, PLASMA | 19 | 6 - 20 mg/dL | [facility] | | | (LAB) | | | LABORATORY | | | | | | SERVICES, | | | | | | CORE | | + +---------+ + + + | CREATININE | 1.08 | 0.70 - 1.30 | [facility] | | | PLASMA | | mg/dL | LABORATORY | | | (LAB) | | | SERVICES, | | | | | | CORE | | + +---------+ + + + | EGFR | >60 | >60 mL/min | [facility] | | | - | | | LABORATORY | | | CYPRIOT | | | SERVICES, | | | | | | CORE | | + +---------+ + + + | EGFR NON | >60 | >60 mL/min | [facility] | | | -MAURO | | | LABORATORY | | | RICAN | | | SERVICES, | | | | | | CORE | | + +---------+ + + + | SODIUM, | 140 | 136 - 145 | [facility] | | | PLASMA | | mmol/L | LABORATORY | | | (LAB) | | | SERVICES, | | | | | | CORE | | + +---------+ + + + | POTASSIUM, | 3.9 | 3.4 - 5.0 | [facility] | | | PLASMA | | mmol/L | LABORATORY | | | (LAB) | | | SERVICES, | | | | | | CORE | | + +---------+ + + + | CHLORIDE, | 109 (H) | 97 - 108 mmol/L | [facility] | | | PLASMA | | | LABORATORY | | | (LAB) | | | SERVICES, | | | | | | CORE | | + +---------+ + + + | TOTAL CO2, | 21 | 21 - 32 mmol/L | [facility] | | | PLASMA | | | LABORATORY | | | (LAB) | | | SERVICES, | | | | | | CORE | | + +---------+ + + + | CALCIUM, | 8.2 (L) | 8.6 - 10.2 | [facility] | | | PLASMA | | mg/dL | LABORATORY | | | (LAB) | | | SERVICES, | | | | | | CORE | | + +---------+ + + + | ANION GAP | 10 | 4 - 11 mmol/L | [facility] | | | | | | LABORATORY | | | | | | SERVICES, | | | | | | CORE | | + +---------+ + + + | POTASSIUM | No Hemo | | [facility] | | | CMNT | | | LABORATORY | | | | | | SERVICES, | | | | | | CORE | | + +---------+ + + + + + | Specimen | + + | Blood - Blood | | (substance) | + + + + + | Narrative | Performed At | + + + | GFR is estimated using the MDRD equation recommended by the | [facility] | | National Kidney Disease Education Program. Estimated GFR | LABORATORY | | Interpretive Information: <60 mL/min/1.73 sq m | SERVICES, CORE | | Chronic Kidney Disease <15 mL/min/1.73 sq m | | | Kidney Failure Estimated GFR greater than 60 mL/min/1.73 sq m is of | | | limited clinical value. The MDRD equation is not valid in the | | | following situations: - Patients under 18 years of age - Severe | | | malnutrition or obesity - Vegetarian diet - Rapidly changing kidney | | | function - Amputees, paraplegics, or other muscle-wasting diseses | | + + + + + + + + | Performing | Address | City/State/Zipcode | Phone Number | | Organization | | | | + + + + + | [facility] | [address] | [place] [address] | | | [facility], [facility] | [address] | | | + + + + + CAROTID STENT PLACEMENT (10/09/2018 10:53 AM PDT) + + + | Narrative | Performed At | + + + | Deion Sommer MD 10/09/2018 12:11 PM [facility] & | | | [facility] INTERVENTIONAL NEURORADIOLOGY Division of the | | | [facility] Note Date: 10/09/2018 Admission Date: | | | 10/06/2018 GUILHERME Birgit JORGE, Hospital Day #3 | | | BRIEF PROCEDURE NOTE Preprocedure Consent: reviewed prior | | | to procedure Patient identity confirmed per policy Team Pause: | | | Immediately prior to the procedure a pause per protocol was called. | | | A pause verifies correct patient, procedure, equipment, support | | | staff and site/side marked as required if indicated . | | | Attending(s): Rubén Mulligan MD Genetic Scientist(s): Deion Sommer MD | | | Preoperative Diagnosis: left MCA stroke LICA stenosis | | | Postoperative Diagnosis: left MCA stroke LICA stenosis Sedation | | | type: moderate Procedure: Left carotid stent placement | | | Complications: None; patient tolerated the procedure well. EBL: | | | 30mL Preliminary Impression: uccessful stenting of L ICA see | | | dictation for full procedural details Access site: right | | | Closure: Starclose, manual compression Pt to lie flat x 4 hours | | | Plan: Groin Precautions Neuro checks Further care per | | | NSICU/Stroke Plavix 75mg daily for 1 month the STOP aspirin 325mg | | | daily for life continue atorvastatin 40mg daily STRICT SYSTOLIC | | | BLOOD PRESSURE GOAL < 140mmHg consider nicardipine infusion | | | with arterial line monitoring baseline carotid dopplers in 1 month | | | Deion Sommer MD Neuro IR | | + + + IR NEURO CAROTID STENT (10/09/2018 10:35 AM PDT) + + | Specimen | + + | | + + + + + | Narrative | Performed At | + + + | NEUROANGIOGRAM AND CAROTID STENT REPORT DATE OF PROCEDURE: | [facility] | | 10/09/2018 DIAGNOSIS: Left middle cerebral artery stroke + left | RADIOLOGY VOICE | | internal carotid artery stenosis OPERATION: Left carotid stent | RECOGNITION 2 | | PRIMARY SURGEON(S): Rubén Mulligan M.D. ASSISTANT EDUCATION DIRECTOR SURGEONS(S): | | | Deion Sommer M.D. ANESTHESIA: Moderate sedation was administered | | | by a Neuro smoke jumper supervisor under direct attending | | | physician supervision. Total supervised sedation time: 100 minutes | | | IV midazolam: 2 mg IV fentanyl: 100 mcg FLUOROSCOPY TIME: 19.6 | | | minutes COMPLICATIONS: none apparent MATERIALS EMPLOYED: | | | Ultrasound; 19g needle; Check-Robbie Hemostasis Device; 035 145 cm baby J | | | wire; 035 300 cm Storq wire; 035 180 cm Glidewire; 5F Anders catheter; | | | 6F Valderm Fuantonio guide catheter; 4-7 mm EmboShield Nav6 distal | | | protection device; 4 x 40 mm Krishna monorail balloon; 5 x 20 mm | | | Krishna monorail balloon; 10 x 40 mm Acculink Stent; Starclose device | | | VESSELS INJECTED AND STUDIED: left common carotid artery, left | | | internal carotid artery, right femoral artery. CONSENT: The | | | procedure was explained to the patient, including the indication, | | | benefits, alternatives, the possibility of an incomplete study, risks | | | of stroke and intracerebral hemorrhage, vascular injury at the access | | | site, arterial dissection, renal failure from contrast media, serious | | | allergic reactions to medications. All questions were answered in | | | detail and the patient directed me to proceed. INDICATIONS: | | | Guilherme Jorge is a 63 y.o. RIGHT handed male with medical problems | | | including tobacco abuse, hypertension, hyperlipidemia, and recurrent | | | cervical basal cell carcinoma treated with MOHS and recent 20 sessions | | | of radiation therapy ending on 10/02 who suffered a left MCA and RNP | | | stroke on 10/04/2018. LICA stenosis with RNP identified on | | | imaging. Initiated on a heparin infusion + aspirin. Underwent | | | diagnostic cerebral angiogram on 10/08/2018 demonstrating | | | approximately 60% stenosis of the proximal LICA. Neurosurgery was | | | consulted who considered CEA high risk due to recent left neck | | | radiation, left neck radiation-induced dermatitis, and possible skin | | | necrosis. Patient pretreated with Plavix and aspirin in preparing | | | for carotid stent placement today. PROCEDURE: The patient was | | | taken to the neuroangiography suite where a team PAUSE was performed | | | per routine to insure correct patient identification, the planned | | | procedure, medication/drug allergies, and last oral intake. A brief | | | review of pertinent medical history was completed. A neurologic | | | examination was assessed. A 19 g single wall puncture needle was | | | introduced into the right femoral artery under ultrasound guidance. | | | A 5F Anders catheter was then navigated over an 035 baby J guidewire | | | into the femoral artery to the aortic arch just below the left | | | subclavian artery where a double flush was performed. An ACT was | | | obtained and measured 128. 5000 units of IV heparin was administered. | | | The catheter was navigated over the aortic arch under fluoroscopic | | | guidance. The left common carotid artery origin was engaged. AP and | | | lateral projections of the left common carotid artery cervical | | | circulation were obtained. The left external carotid artery was | | | selectively catheterized with the Anders catheter. An exchange was | | | performed for the 6F Appvancebuki catheter over a Storq wire | | | maintained in the external carotid artery under fluoroscopy. The Asahi | | | Fubuki catheter was positioned in the mid cervical common carotid | | | artery. Absence of dissection and the presence of forward flow was | | | confirmed with a gentle injection of contrast under fluoroscopy. | | | AP and lateral projections of the left common carotid artery | | | intracranial circulations were obtained. AP and lateral projections of | | | the left common carotid artery centered on the bifurcation were | | | obtained. An embolic protection device was introduced through the | | | Fubuki guide catheter and navigated across the left internal carotid | | | artery stenosis with the assistance from roadmap imaging. The distal | | | protection device device was then deployed within a straight section | | | of the internal carotid artery at the level of the superior C1 | | | vertebral body level. 0.5 mg of atropine was administered. After | | | observing an appropriate response to atropine, a 4 x 40 mm Krishna | | | Monorail balloon was positioned across the proximal internal carotid | | | artery stenosis. Angioplasty was performed. An ACT was obtained and | | | measured 232. 1000 units of IV heparin was administered. AP and | | | lateral projections of the left carotid artery centered on the | | | bifurcation were obtained. The Acculink stent was positioned across | | | the proximal internal carotid artery stenosis and deployed. Post stent | | | angioplasty was performed with a 5 x 20 mm Krishna Monorail balloon. | | | AP and lateral projections of the left carotid artery centered on the | | | bifurcation were obtained. The embolic protection device was | | | recaptured and retrieved via the guide catheter. After aspiration of | | | the guide catheter AP and lateral projections of the left carotid | | | artery centered on the bifurcation were obtained. AP and lateral | | | projections of the left carotid artery intracranial circulations were | | | obtained. The catheter was then withdrawn into the aorta down to the | | | right femoral artery. Arteriotomy location was confirmed with a GARCIA | | | arteriogram. The common femoral arteriotomy was closed with a | | | Starclose device and manual pressure. All catheterizations were | | | performed by first advancing the wire into the artery and then gently | | | advancing the catheter. Double flushing was performed after removal | | | of the wire completely from the catheter or if the wire needed to be | | | moved in and out of the catheter three times during the course of | | | selective catheterization. Before performing a power injection the | | | catheter tip location and presence of blood flow past the catheter | | | were confirmed by use of a soft contrast injection. FINDINGS: | | | The left common carotid artery demonstrates severe atheromatous | | | disease at the bifurcation resulting in approximately 60% stenosis of | | | the proximal left internal carotid artery measured by NASCET criteria. | | | Following Acculink stent deployed across the stenosis along with pre | | | and post deployment angioplasty, no significant degree of stenosis | | | remains within the left internal carotid artery. The luminal | | | irregularity of the distal left common carotid artery related to the | | | previously described atheromatous plaque is reduced in size following | | | stenting though a small degree of kuq-yrey-hurnvitz stenosis persists. | | | Control angiography of the intracranial circulation following stent | | | placement demonstrates no evidence of arterial dissection or nontarget | | | embolization. The right common femoral arteriogram demonstrates a | | | high bifurcation. IMPRESSION: This diagnostic cerebral angiogram | | | demonstrates successful stenting of the left carotid artery with an | | | Rx Acculink stent. Dual antiplatelet therapy on aspirin 325 mg and | | | Plavix 75 mg should continue for one month after which lifelong | | | monotherapy should continue on aspirin 325 mg daily. I have | | | personally reviewed the images and, if necessary, edited the report. I | | | agree with the report as now presented. Final signature: Rubén Sebastian | | | MD sIaak 10/16/2018 11:08 AM Preliminary: Deion Sommer | | | 10/09/2018 1:27 PM Dictation initiated: Deion Sommer 10/09/2018 | | | 11:45 AM | | + + + + + | Procedure Note | + + | Service Account, [employer] [facility] In Interface - 10/16/2018 11:09 AM PDT NEUROANGIOGRAM | | AND CAROTID STENT REPORT DATE OF PROCEDURE: 10/09/2018 DIAGNOSIS: Left middle cerebral | | artery stroke + left internal carotid artery stenosis OPERATION: Left carotid stent | | PRIMARY SURGEON(S): Rubén Mulligan M.D. ASSISTANT EDUCATION DIRECTOR SURGEONS(S):Deion Sommer M.D. | | ANESTHESIA:Moderate sedation was administered by a Neuro smoke jumper supervisor | | under direct attending physician supervision.Total supervised sedation time: 100 | | minutesIV midazolam: 2 mgIV fentanyl: 100 mcg FLUOROSCOPY TIME: 19.6 minutes | | COMPLICATIONS:none apparent MATERIALS EMPLOYED: Ultrasound; 19g needle; Check-Robbie | | Hemostasis Device; 035 145 cm baby J wire; 035 300 cm Storq wire; 035 180 cm Glidewire; | | 5F Anders catheter; 6F Valderm FubuYotpo guide catheter; 4-7 mm EmboShield Nav6 distal | | protection device; 4 x 40 mm Krishna monorail balloon; 5 x 20 mm Krishna monorail | | balloon; 10 x 40 mm Acculink Stent; Starclose device VESSELS INJECTED AND STUDIED: left | | common carotid artery, left internal carotid artery, right femoral artery. CONSENT: The | | procedure was explained to the patient, including the indication, benefits, | | alternatives, the possibility of an incomplete study, risks of stroke and intracerebral | | hemorrhage, vascular injury at the access site, arterial dissection, renal failure from | | contrast media, serious allergic reactions to medications. All questions were answered | | in detail and the patient directed me to proceed. INDICATIONS:Guilherme Jorge is a 63 | | y.o. RIGHT handed male with medical problems including tobacco abuse, hypertension, | | hyperlipidemia, and recurrent cervical basal cell carcinoma treated with MOHS and recent | | 20 sessions of radiation therapy ending on 10/02 who suffered a left MCA and RNP stroke | | on 10/04/2018. LICA stenosis with RNP identified on imaging. Initiated on a | | heparin infusion + aspirin. Underwent diagnostic cerebral angiogram on 10/08/2018 | | demonstrating approximately 60% stenosis of the proximal LICA. 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 Patient pretreated with | | Plavix and aspirin in preparing for carotid stent placement today. PROCEDURE: The | | patient was taken to the neuroangiography suite where a team PAUSE was performed per | | routine to insure correct patient identification, the planned procedure, medication/drug | | allergies, and last oral intake. A brief review of pertinent medical history was | | completed. A neurologic examination was assessed. A 19 g single wall puncture needle | | was introduced into the right femoral artery under ultrasound guidance. A 5F Anders | | catheter was then navigated over an 035 baby J guidewire into the femoral artery to the | | aortic arch just below the left subclavian artery where a double flush was performed. An | | ACT was obtained and measured 128. 5000 units of IV heparin was administered. The | | catheter was navigated over the aortic arch under fluoroscopic guidance. The left common | | carotid artery origin was engaged. AP and lateral projections of the left common | | carotid artery cervical circulation were obtained. The left external carotid artery was | | selectively catheterized with the Anders catheter. An exchange was performed for the 6F | | Valderm Fubuki catheter over a Storq wire maintained in the external carotid artery under | | fluoroscopy. The [employer] Fubuki catheter was positioned in the mid cervical common carotid | | artery. Absence of dissection and the presence of forward flow was confirmed with a | | gentle injection of contrast under fluoroscopy. AP and lateral projections of the left | | common carotid artery intracranial circulations were obtained. AP and lateral | | projections of the left common carotid artery centered on the bifurcation were obtained. | | An embolic protection device was introduced through the Fubuki guide catheter and | | navigated across the left internal carotid artery stenosis with the assistance from | | roadmap imaging. The distal protection device device was then deployed within a straight | | section of the internal carotid artery at the level of the superior C1 vertebral body | | level. 0.5 mg of atropine was administered. After observing an appropriate response to | | atropine, a 4 x 40 mm Krishna Monorail balloon was positioned across the proximal | | internal carotid artery stenosis. Angioplasty was performed. An ACT was obtained and | | measured 232. 1000 units of IV heparin was administered. AP and lateral projections of | | the left carotid artery centered on the bifurcation were obtained. The Acculink stent | | was positioned across the proximal internal carotid artery stenosis and deployed. Post | | stent angioplasty was performed with a 5 x 20 mm Krishna Monorail balloon. AP and | | lateral projections of the left carotid artery centered on the bifurcation were | | obtained. The embolic protection device was recaptured and retrieved via the guide | | catheter. After aspiration of the guide catheter AP and lateral projections of the left | | carotid artery centered on the bifurcation were obtained. AP and lateral projections of | | the left carotid artery intracranial circulations were obtained. The catheter was then | | withdrawn into the aorta down to the right femoral artery. Arteriotomy location was | | confirmed with a GARCIA arteriogram. The common femoral arteriotomy was closed with a | | Starclose device and manual pressure. All catheterizations were performed by first | | advancing the wire into the artery and then gently advancing the catheter. Double | | flushing was performed after removal of the wire completely from the catheter or if the | | wire needed to be moved in and out of the catheter three times during the course of | | selective catheterization. Before performing a power injection the catheter tip | | location and presence of blood flow past the catheter were confirmed by use of a soft | | contrast injection. FINDINGS: The left common carotid artery demonstrates severe | | atheromatous disease at the bifurcation resulting in approximately 60% stenosis of the | | proximal left internal carotid artery measured by NASCET criteria. Following Acculink | | stent deployed across the stenosis along with pre and post deployment angioplasty, no | | significant degree of stenosis remains within the left internal carotid artery. The | | luminal irregularity of the distal left common carotid artery related to the previously | | described atheromatous plaque is reduced in size following stenting though a small | | degree of phs-pxdi-hzulbssw stenosis persists. Control angiography of the intracranial | | circulation following stent placement demonstrates no evidence of arterial dissection or | | nontarget embolization. The right common femoral arteriogram demonstrates a high | | bifurcation. IMPRESSION:This diagnostic cerebral angiogram demonstrates successful | | stenting of the left carotid artery with an Rx Acculink stent. Dual antiplatelet therapy | | on aspirin 325 mg and Plavix 75 mg should continue for one month after which lifelong | | monotherapy should continue on aspirin 325 mg daily. I have personally reviewed the | | images and, if necessary, edited the report. I agree with the report as now presented. | | Final signature: Rubén Mulligan MD 10/16/2018 11:08 AM Preliminary: Deion Sommer | | 10/09/2018 1:27 PM Dictation initiated: Deion Sommer 10/09/2018 11:45 AM | + + + +---------+ + + | Performing | Address | City/State/Zipcode | Phone Number | | Organization | | | | + +---------+ + + | [facility] | | | | | VOICE RECOGNITION 2 | | | | + +---------+ + + TOLU AGEE (10/09/2018 10:11 AM PDT) + +-------+ + + + | Component | Value | Ref Range | Performed | Pathologist | | | | | At | Signature | + +-------+ + + + | ACT, POC | 232 | 90 - 150 | [facility] | | | | | | [place] | | | | | | [facility] | | | | | | OF CARE | | | | | | TESTS | | + +-------+ + + + + + | Specimen | + + | Blood - Blood | | (substance) | + + + + + + + | Performing | Address | City/State/Zipcode | Phone Number | | Organization | | | | + + + + + | [facility] | [address] | [place], [place] | | | [facility] | [facility] | [address] | | | TESTS | | | | + + + + + ACT, POC (10/09/2018 9:54 AM PDT) + +-------+ + + + | Component | Value | Ref Range | Performed | Pathologist | | | | | At | Signature | + +-------+ + + + | ACT, POC | 128 | 90 - 150 | [facility] | | | | | | [place] | | | | | | [facility] | | | | | | OF CARE | | | | | | TESTS | | + +-------+ + + + + + | Specimen | + + | Blood - Blood | | (substance) | + + + + + + + | Performing | Address | City/State/Zipcode | Phone Number | | Organization | | | | + + + + + | [facility] | [address] | [place], [place] | | | [facility] [place] | [facility] | [address] | | | TESTS | | | | + + + + + CAPILLARY BLOOD GLUCOSE (NO CHG), POC (10/09/2018 5:46 AM PDT) + +-------+ + + + | Component | Value | Ref Range | Performed | Pathologist | | | | | At | Signature | + +-------+ + + + | BLOOD | 78 | 60 - 99 mg/dL | [facility] - | | | GLUCOSE, | | | [place] | | | POC | | | [facility] | | | | | | OF CARE | | | | | | TESTS | | + +-------+ + + + + + | Specimen | + + | | + + + + + + + | Performing | Address | City/State/Zipcode | Phone Number | | Organization | | | | + + + + + | [facility] | [address] | [place], [place] | | | [facility] | [address] | [address] | | | TESTS | | | | + + + + + CBC (HEMOGRAM) ONLY (10/09/2018 5:29 AM PDT) + + + + + + | Component | Value | Ref Range | Performed | Pathologist | | | | | At | Signature | + + + + + + | WHITE CELL | 10.98 (H) | 3.50 - 10.80 | [facility] | | | COUNT | | K/cu mm | LABORATORY | | | | | | SERVICES, | | | | | | CORE | | + + + + + + | RED CELL | 4.81 | 4.50 - 6.00 | [facility] | | | COUNT | | M/cu mm | LABORATORY | | | | | | SERVICES, | | | | | | CORE | | + + + + + + | HEMOGLOBIN | 14.2 | 13.5 - 17.5 | [facility] | | | | | g/dL | LABORATORY | | | | | | SERVICES, | | | | | | CORE | | + + + + + + | HEMATOCRIT | 43.2 | 41.0 - 53.0 % | [facility] | | | | | | LABORATORY | | | | | | SERVICES, | | | | | | CORE | | + + + + + + | MCV | 89.8 | 80.0 - 100.0 fL | [facility] | | | | | | LABORATORY | | | | | | SERVICES, | | | | | | CORE | | + + + + + + | MCHC | 32.9 | 32.0 - 36.0 | [facility] | | | | | g/dL | LABORATORY | | | | | | SERVICES, | | | | | | CORE | | + + + + + + | RDW SD | 41.1 | 35.1 - 46.3 fL | [facility] | | | | | | LABORATORY | | | | | | SERVICES, | | | | | | CORE | | + + + + + + | PLATELET | 251 | 150 - 400 K/cu | [facility] | | | COUNT | | mm | LABORATORY | | | | | | SERVICES, | | | | | | CORE | | + + + + + + | MPV | 9.5 (L) | 9.7 - 12.3 fL | [facility] | | | | | | LABORATORY | | | | | | SERVICES, | | | | | | CORE | | + + + + + + | NRBC% | 0.0 | 0.0 - 0.3 % | [facility] | | | | | | LABORATORY | | | | | | SERVICES, | | | | | | CORE | | + + + + + + | NRBC# | 0.00 | 0.00 - 0.02 | [facility] | | | | | K/cu mm | LABORATORY | | | | | | SERVICES, | | | | | | CORE | | + + + + + + + + | Specimen | + + | Blood - Blood | | (substance) | + + + + + + + | Performing | Address | City/State/Zipcode | Phone Number | | Organization | | | | + + + + + | [facility] | [address] | [place] [address] | | | SERVICES, CORE | [address] | | | + + + + + BASIC METABOLIC SET (NA, K, CL, TCO2, BUN, CR, GLU, CA) (10/09/2018 5:29 AM PDT) + +---------+ + + + | Component | Value | Ref Range | Performed | Pathologist | | | | | At | Signature | + +---------+ + + + | GLUCOSE, | 91 | 70 - 99 mg/dL | [facility] | | | PLASMA | | | LABORATORY | | | (LAB) | | | SERVICES, | | | | | | CORE | | + +---------+ + + + | BUN, PLASMA | 19 | 6 - 20 mg/dL | [facility] | | | (LAB) | | | LABORATORY | | | | | | SERVICES, | | | | | | CORE | | + +---------+ + + + | CREATININE | 1.19 | 0.70 - 1.30 | [facility] | | | PLASMA | | mg/dL | LABORATORY | | | (LAB) | | | SERVICES, | | | | | | CORE | | + +---------+ + + + | EGFR | >60 | >60 mL/min | [facility] | | | - | | | LABORATORY | | | CYPRIOT | | | SERVICES, | | | | | | CORE | | + +---------+ + + + | EGFR NON | >60 | >60 mL/min | [facility] | | | -MAURO | | | LABORATORY | | | RICAN | | | SERVICES, | | | | | | CORE | | + +---------+ + + + | SODIUM, | 140 | 136 - 145 | [facility] | | | PLASMA | | mmol/L | LABORATORY | | | (LAB) | | | SERVICES, | | | | | | CORE | | + +---------+ + + + | POTASSIUM, | 4.6 | 3.4 - 5.0 | [facility] | | | PLASMA | | mmol/L | LABORATORY | | | (LAB) | | | SERVICES, | | | | | | CORE | | + +---------+ + + + | CHLORIDE, | 111 (H) | 97 - 108 mmol/L | [facility] | | | PLASMA | | | LABORATORY | | | (LAB) | | | SERVICES, | | | | | | CORE | | + +---------+ + + + | TOTAL CO2, | 21 | 21 - 32 mmol/L | [facility] | | | PLASMA | | | LABORATORY | | | (LAB) | | | SERVICES, | | | | | | CORE | | + +---------+ + + + | CALCIUM, | 9.2 | 8.6 - 10.2 | [facility] | | | PLASMA | | mg/dL | LABORATORY | | | (LAB) | | | SERVICES, | | | | | | CORE | | + +---------+ + + + | ANION GAP | 8 | 4 - 11 mmol/L | [facility] | | | | | | LABORATORY | | | | | | SERVICES, | | | | | | CORE | | + +---------+ + + + | POTASSIUM | No Hemo | | [facility] | | | CMNT | | | LABORATORY | | | | | | SERVICES, | | | | | | CORE | | + +---------+ + + + + + | Specimen | + + | Blood - Blood | | (substance) | + + + + + | Narrative | Performed At | + + + | GFR is estimated using the MDRD equation recommended by the | [facility] | | National Kidney Disease Education Program. Estimated GFR | LABORATORY | | Interpretive Information: <60 mL/min/1.73 sq m | SERVICES, CORE | | Chronic Kidney Disease <15 mL/min/1.73 sq m | | | Kidney Failure Estimated GFR greater than 60 mL/min/1.73 sq m is of | | | limited clinical value. The MDRD equation is not valid in the | | | following situations: - Patients under 18 years of age - Severe | | | malnutrition or obesity - Vegetarian diet - Rapidly changing kidney | | | function - Amputees, paraplegics, or other muscle-wasting diseses | | + + + + + + + + | Performing | Address | City/State/Zipcode | Phone Number | | Organization | | | | + + + + + | [facility] | [address] [facility] [facility] [facility] | [place] [address] | | | [place], [facility] | [address] | | | + + + + + CAPILLARY BLOOD GLUCOSE (NO CHG), POC (10/08/2018 10:14 PM PDT) + +-------+ + + + | Component | Value | Ref Range | Performed | Pathologist | | | | | At | Signature | + +-------+ + + + | BLOOD | 81 | 60 - 99 mg/dL | [facility] - | | | GLUCOSE, | | | [place] | | | POC | | | [facility] | | | | | | OF CARE | | | | | | TESTS | | + +-------+ + + + + + | Specimen | + + | | + + + + + + + | Performing | Address | City/State/Zipcode | Phone Number | | Organization | | | | + + + + + | [facility] | [address] | [place], [place] | | | [facility] | [address] | [address] | | | TESTS | | | | + + + + + CAPILLARY BLOOD GLUCOSE (NO CHG), POC (10/08/2018 5:06 PM PDT) + +---------+ + + + | Component | Value | Ref Range | Performed | Pathologist | | | | | At | Signature | + +---------+ + + + | BLOOD | 122 (H) | 60 - 99 mg/dL | [facility] | | | GLUCOSE, | | | [place] | | | POC | | | [facility] | | | | | | OF CARE | | | | | | TESTS | | + +---------+ + + + + + | Specimen | + + | | + + + + + + + | Performing | Address | City/State/Zipcode | Phone Number | | Organization | | | | + + + + + | [facility] | [address] | [place], [place] | | | [facility] | [address] | [address] | | | TESTS | | | | + + + + + CAPILLARY BLOOD GLUCOSE (NO CHG), POC (10/08/2018 1:09 PM PDT) + +-------+ + + + | Component | Value | Ref Range | Performed | Pathologist | | | | | At | Signature | + +-------+ + + + | BLOOD | 80 | 60 - 99 mg/dL | [facility] - | | | GLUCOSE, | | | [place] | | | POC | | | [facility] | | | | | | OF CARE | | | | | | TESTS | | + +-------+ + + + + + | Specimen | + + | | + + + + + + + | Performing | Address | City/State/Zipcode | Phone Number | | Organization | | | | + + + + + | [facility] | [address] | [place], [place] | | | [facility] | [address] | [address] | | | TESTS | | | | + + + + + IR NEURO ANGIOGRAM CEREBRAL (10/08/2018 11:20 AM PDT) + + | Specimen | + + | | + + + + + | Narrative | Performed At | + + + | DATE OF PROCEDURE: 10/08/2018 DIAGNOSIS: Left MCA stroke + left | [facility] | | internal carotid artery stenosis OPERATION: diagnostic cerebral | RADIOLOGY VOICE | | angiogram PRIMARY SURGEON(S): Ryan Douglas M.D. | RECOGNITION 2 | | ASSISTANT EDUCATION DIRECTOR SURGEONS(S): Deion Sommer M.D. ANESTHESIA: Moderate | | | sedation was administered by a Neuro smoke jumper supervisor under | | | direct attending physician supervision. Total supervised sedation | | | time: 60 minutes IV midazolam: 0.5 mg IV fentanyl: 75 mcg | | | FLUOROSCOPY TIME: 7.6 minutes COMPLICATIONS: none apparent | | | MATERIALS EMPLOYED: 19g needle; 035 Bentson wire; 035 Glidewire; 5F | | | Anders catheter; manual pressure VESSELS INJECTED AND STUDIED: | | | Innominate artery, right common carotid artery, right internal carotid | | | artery, left common carotid artery, left internal carotid artery, | | | right femoral artery. CONSENT: The procedure was explained to | | | the patient, including the indication, benefits, alternatives, the | | | possibility of an incomplete study, risks of stroke and intracerebral | | | hemorrhage, vascular injury at the access site, arterial dissection, | | | renal failure from contrast media, serious allergic reactions to | | | medications. All questions were answered in detail and the patient | | | directed me to proceed. INDICATIONS: Guilherme Jorge is a 63 y.o. | | | male who suffered a left middle cerebral artery stroke on 10/04/2018. | | | CT angiogram demonstrated severe left internal carotid artery | | | stenosis. Transferred to [facility] on a heparin infusion and aspirin 81 mg | | | daily. Diagnostic cerebral angiogram requested for pre | | | revascularization evaluation. PROCEDURE: The patient was taken | | | to the neuroangiography suite where a team PAUSE was performed per | | | routine to insure correct patient identification, the planned | | | procedure, medication/drug allergies, and last oral intake. A brief | | | review of pertinent medical history was completed. A neurologic | | | examination was assessed. A 19 g single wall puncture needle was | | | introduced into the right femoral artery. A 5F Anders catheter was | | | then navigated over a 035 Bentson guidewire into the femoral artery to | | | the aortic arch just below the left subclavian artery where a double | | | flush was performed. The catheter was navigated over the aortic arch | | | under fluoroscopic guidance. The left common carotid artery origin was | | | engaged. AP and lateral projections of the left carotid artery were | | | obtained. The catheter was advanced into the left common carotid | | | artery over a Glidewire. AP, lateral, and orthogonal projections of | | | the left carotid artery centered on the bifurcation were obtained. AP | | | and lateral projections of the left common carotid artery cranial | | | circulations were obtained. The catheter was withdrawn into the aorta | | | and navigated across the arch under fluoroscopy. The innominate artery | | | was engaged. AP and lateral projections of the innominate artery and | | | its branches were obtained. The right common carotid artery was | | | selectively catheterized over a Glidewire. AP and lateral projections | | | of the right carotid artery centered on the bifurcation were obtained. | | | AP, lateral, transorbital oblique, and Hollie's projections of the | | | right common carotid artery cranial circulations were obtained. The | | | catheter was then withdrawn into the aorta down to the right femoral | | | artery. Arteriotomy location was confirmed to be below the bifurcation | | | with a GARCIA arteriogram. The common femoral arteriotomy was closed | | | with manual pressure. All catheterizations were performed by first | | | advancing the wire into the artery and then gently advancing the | | | catheter. Double flushing was performed after removal of the wire | | | completely from the catheter or if the wire needed to be moved in and | | | out of the catheter three times during the course of selective | | | catheterization. Before performing a power injection the catheter | | | tip location and presence of blood flow past the catheter were | | | confirmed by use of a soft contrast injection. FINDINGS: The | | | innominate artery demonstrates moderate atheromatous disease without | | | evidence for flow-limiting stenosis. The right common carotid | | | artery demonstrates moderate to severe atheromatous disease at the | | | bifurcation. There is approximately 25% stenosis of the right internal | | | carotid artery origin measured by NASCET criteria. The right | | | common carotid arteriogram of the intracranial circulation | | | demonstrates diffuse multifocal moderate intracranial atherosclerotic | | | disease. Most notably is an approximate 50% stenosis of the right M1 | | | segment of the middle cerebral artery just distal to its origin | | | measured by modified NASCET criteria. Perfusion of the left anterior | | | cerebral artery territory is dependent on a large anterior | | | communicating artery. The left common carotid artery demonstrates | | | severe atheromatous disease at the bifurcation. There is an | | | atheromatous plaque of the lateral aspect of the distal left common | | | carotid artery. Approximately 0.5 cm distal to the carotid artery | | | bifurcation is a 60% stenosis of the left internal carotid artery | | | measured by NASCET criteria. This stenosis is at the level of the | | | superior C4 vertebral body. No associated thrombus The left common | | | carotid arteriogram of the intracranial circulation demonstrates | | | diffuse moderate to severe intracranial atherosclerotic disease. There | | | is no A1 anterior cerebral artery segment. There is a variant | | | posterior cerebral artery. The right common femoral arteriogram | | | demonstrates a high bifurcation. IMPRESSION: This diagnostic | | | cerebral angiogram demonstrates diffuse moderate to severe | | | atheromatous disease of the cervicocerebral arteries. Most notable is | | | a 60% stenosis of the left internal carotid artery just distal to its | | | origin at the level of the superior C4 vertebral body and a 50% | | | stenosis of the proximal M1 segment of the right middle cerebral | | | artery. The left anterior circulation is isolated due to an absent | | | A1 segment of the anterior cerebral artery and a posterior | | | cerebral artery. I have personally reviewed the images and, if | | | necessary, edited the report. I agree with the report as now | | | presented. Final signature: Ryan Douglas MD 10/10/2018 | | | 8:49 AM Preliminary: Deion Sommer 10/09/2018 1:18 PM Dictation | | | initiated: Deion Sommer 10/08/2018 12:12 PM | | + + + + + | Procedure Note | + + | Service Account, Radiant Res In Interface - 10/10/2018 8:50 AM PDT DATE OF | | PROCEDURE: 10/08/2018 DIAGNOSIS: Left MCA stroke + left internal carotid artery stenosis | | OPERATION: diagnostic cerebral angiogram PRIMARY SURGEON(S): Ryan Douglas M.D. | | ASSISTANT EDUCATION DIRECTOR SURGEONS(S):Deion Sommer M.D. ANESTHESIA:Moderate sedation was administered | | by a Neuro smoke jumper supervisor under direct attending physician | | supervision.Total supervised sedation time: 60 minutesIV midazolam: 0.5 mgIV fentanyl: | | 75 mcg FLUOROSCOPY TIME: 7.6 minutes COMPLICATIONS:none apparent MATERIALS EMPLOYED: 19g | | needle; 035 Bentson wire; 035 Glidewire; 5F Anders catheter; manual pressure VESSELS | | INJECTED AND STUDIED: Innominate artery, right common carotid artery, right internal | | carotid artery, left common carotid artery, left internal carotid artery, right femoral | | artery. CONSENT: The procedure was explained to the patient, including the indication, | | benefits, alternatives, the possibility of an incomplete study, risks of stroke and | | intracerebral hemorrhage, vascular injury at the access site, arterial dissection, renal | | failure from contrast media, serious allergic reactions to medications. All questions | | were answered in detail and the patient directed me to proceed. INDICATIONS:Guilherme Genao | | Luisito is a 63 y.o. 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 | | CT angiogram demonstrated severe left internal carotid artery stenosis. Transferred to | | [facility] on a heparin infusion and aspirin 81 mg daily. Diagnostic cerebral angiogram | | requested for pre revascularization evaluation. PROCEDURE: The patient was taken to the | | neuroangiography suite where a team PAUSE was performed per routine to insure correct | | patient identification, the planned procedure, medication/drug allergies, and last oral | | intake. A brief review of pertinent medical history was completed. A neurologic | | examination was assessed. A 19 g single wall puncture needle was introduced into the | | right femoral artery. A 5F Anders catheter was then navigated over a 035 Bentson | | guidewire into the femoral artery to the aortic arch just below the left subclavian | | artery where a double flush was performed. The catheter was navigated over the aortic | | arch under fluoroscopic guidance. The left common carotid artery origin was engaged. AP | | and lateral projections of the left carotid artery were obtained. The catheter was | | advanced into the left common carotid artery over a Glidewire. AP, lateral, and | | orthogonal projections of the left carotid artery centered on the bifurcation were | | obtained. AP and lateral projections of the left common carotid artery cranial | | circulations were obtained. The catheter was withdrawn into the aorta and navigated | | across the arch under fluoroscopy. The innominate artery was engaged. AP and lateral | | projections of the innominate artery and its branches were obtained. The right common | | carotid artery was selectively catheterized over a Glidewire. AP and lateral projections | | of the right carotid artery centered on the bifurcation were obtained. AP, lateral, | | transorbital oblique, and Hollie's projections of the right common carotid artery | | cranial circulations were obtained. The catheter was then withdrawn into the aorta down | | to the right femoral artery. Arteriotomy location was confirmed to be below the | | bifurcation with a GARCIA arteriogram. The common femoral arteriotomy was closed with | | manual pressure. All catheterizations were performed by first advancing the wire into | | the artery and then gently advancing the catheter. Double flushing was performed after | | removal of the wire completely from the catheter or if the wire needed to be moved in | | and out of the catheter three times during the course of selective catheterization. | | Before performing a power injection the catheter tip location and presence of blood flow | | past the catheter were confirmed by use of a soft contrast injection. FINDINGS: The | | innominate artery demonstrates moderate atheromatous disease without evidence for | | flow-limiting stenosis. The right common carotid artery demonstrates moderate to severe | | atheromatous disease at the bifurcation. There is approximately 25% stenosis of the | | right internal carotid artery origin measured by NASCET criteria. The right common | | carotid arteriogram of the intracranial circulation demonstrates diffuse multifocal | | moderate intracranial atherosclerotic disease. Most notably is an approximate 50% | | stenosis of the right M1 segment of the middle cerebral artery just distal to its origin | | measured by modified NASCET criteria. Perfusion of the left anterior cerebral artery | | territory is dependent on a large anterior communicating artery. The left common carotid | | artery demonstrates severe atheromatous disease at the bifurcation. There is an | | atheromatous plaque of the lateral aspect of the distal left common carotid artery. | | Approximately 0.5 cm distal to the carotid artery bifurcation is a 60% stenosis of the | | left internal carotid artery measured by NASCET criteria. This stenosis is at the level | | of the superior C4 vertebral body. No associated thrombus The left common carotid | | arteriogram of the intracranial circulation demonstrates diffuse moderate to severe | | intracranial atherosclerotic disease. There is no A1 anterior cerebral artery segment. | | There is a variant posterior cerebral artery. The right common femoral arteriogram | | demonstrates a high bifurcation. IMPRESSION:This diagnostic cerebral angiogram | | demonstrates diffuse moderate to severe atheromatous disease of the cervicocerebral | | arteries. Most notable is a 60% stenosis of the left internal carotid artery just distal | | to its origin at the level of the superior C4 vertebral body and a 50% stenosis of the | | proximal M1 segment of the right middle cerebral artery. The left anterior circulation | | is isolated due to an absent A1 segment of the anterior cerebral artery and a | | posterior cerebral artery. I have personally reviewed the images and, if necessary, | | edited the report. I agree with the report as now presented. Final signature: Ryan | | MD Misael 10/10/2018 8:49 AM Preliminary: Deion Sommer 10/09/2018 1:18 PM | | Dictation initiated: Deion Sommer 10/08/2018 12:12 PM | | | |I have personally reviewed the images and, if necessary, edited the report. I agree with th e report as now presented. | | | |Final signature: Ryan Douglas MD 10/10/2018 8:49 AM | |Preliminary: Deion Sommer 10/09/2018 1:18 PM | |Dictation initiated: Deion Sommer 10/08/2018 12:12 PM | + + + +---------+ + + | Performing | Address | City/State/Zipcode | Phone Number | | Organization | | | | + +---------+ + + | [facility] | | | | | VOICE RECOGNITION 2 | | | | + +---------+ + + CAPILLARY BLOOD GLUCOSE (NO CHG), POC (10/08/2018 10:04 AM PDT) + +-------+ + + + | Component | Value | Ref Range | Performed | Pathologist | | | | | At | Signature | + +-------+ + + + | BLOOD | 92 | 60 - 99 mg/dL | [facility] - | | | GLUCOSE, | | | [facility] | | | POC | | | [facility] | | | | | | OF CARE | | | | | | TESTS | | + +-------+ + + + + + | Specimen | + + | | + + + + + + + | Performing | Address | City/State/Zipcode | Phone Number | | Organization | | | | + + + + + | [facility] | [address] | [place], [place] | | | [facility] [place] | [facility] | [phone] | | | TESTS | | | | + + + + + BASIC METABOLIC SET (NA, K, CL, TCO2, BUN, CR, GLU, CA) (10/08/2018 8:31 AM PDT) + +---------+ + + + | Component | Value | Ref Range | Performed | Pathologist | | | | | At | Signature | + +---------+ + + + | GLUCOSE, | 88 | 70 - 99 mg/dL | [facility] | | | PLASMA | | | LABORATORY | | | (LAB) | | | SERVICES, | | | | | | CORE | | + +---------+ + + + | BUN, PLASMA | 20 | 6 - 20 mg/dL | [facility] | | | (LAB) | | | LABORATORY | | | | | | SERVICES, | | | | | | CORE | | + +---------+ + + + | CREATININE | 1.15 | 0.70 - 1.30 | [facility] | | | PLASMA | | mg/dL | LABORATORY | | | (LAB) | | | SERVICES, | | | | | | CORE | | + +---------+ + + + | EGFR | >60 | >60 mL/min | [facility] | | | - | | | LABORATORY | | | CYPRIOT | | | SERVICES, | | | | | | CORE | | + +---------+ + + + | EGFR NON | >60 | >60 mL/min | [facility] | | | -MAURO | | | LABORATORY | | | RICAN | | | SERVICES, | | | | | | CORE | | + +---------+ + + + | SODIUM, | 141 | 136 - 145 | [facility] | | | PLASMA | | mmol/L | LABORATORY | | | (LAB) | | | SERVICES, | | | | | | CORE | | + +---------+ + + + | POTASSIUM, | 4.4 | 3.4 - 5.0 | [facility] | | | PLASMA | | mmol/L | LABORATORY | | | (LAB) | | | SERVICES, | | | | | | CORE | | + +---------+ + + + | CHLORIDE, | 113 (H) | 97 - 108 mmol/L | [facility] | | | PLASMA | | | LABORATORY | | | (LAB) | | | SERVICES, | | | | | | CORE | | + +---------+ + + + | TOTAL CO2, | 22 | 21 - 32 mmol/L | [facility] | | | PLASMA | | | LABORATORY | | | (LAB) | | | SERVICES, | | | | | | CORE | | + +---------+ + + + | CALCIUM, | 8.4 (L) | 8.6 - 10.2 | [facility] | | | PLASMA | | mg/dL | LABORATORY | | | (LAB) | | | SERVICES, | | | | | | CORE | | + +---------+ + + + | ANION GAP | 6 | 4 - 11 mmol/L | [facility] | | | | | | LABORATORY | | | | | | SERVICES, | | | | | | CORE | | + +---------+ + + + | POTASSIUM | No Hemo | | [facility] | | | CMNT | | | LABORATORY | | | | | | SERVICES, | | | | | | CORE | | + +---------+ + + + + + | Specimen | + + | Blood - Blood | | (substance) | + + + + + | Narrative | Performed At | + + + | GFR is estimated using the MDRD equation recommended by the | [facility] | | National Kidney Disease Education Program. Estimated GFR | LABORATORY | | Interpretive Information: <60 mL/min/1.73 sq m | SERVICES, CORE | | Chronic Kidney Disease <15 mL/min/1.73 sq m | | | Kidney Failure Estimated GFR greater than 60 mL/min/1.73 sq m is of | | | limited clinical value. The MDRD equation is not valid in the | | | following situations: - Patients under 18 years of age - Severe | | | malnutrition or obesity - Vegetarian diet - Rapidly changing kidney | | | function - Amputees, paraplegics, or other muscle-wasting diseses | | + + + + + + + + | Performing | Address | City/State/Zipcode | Phone Number | | Organization | | | | + + + + + | [facility] | [address] | [place] [address] | | | SERVICES, CORE | [address] | | | + + + + + CBC (HEMOGRAM) ONLY (10/08/2018 4:54 AM PDT) + +---------+ + + + | Component | Value | Ref Range | Performed | Pathologist | | | | | At | Signature | + +---------+ + + + | WHITE CELL | 9.49 | 3.50 - 10.80 | [facility] | | | COUNT | | K/cu mm | LABORATORY | | | | | | SERVICES, | | | | | | CORE | | + +---------+ + + + | RED CELL | 4.68 | 4.50 - 6.00 | [facility] | | | COUNT | | M/cu mm | LABORATORY | | | | | | SERVICES, | | | | | | CORE | | + +---------+ + + + | HEMOGLOBIN | 13.9 | 13.5 - 17.5 | [facility] | | | | | g/dL | LABORATORY | | | | | | SERVICES, | | | | | | CORE | | + +---------+ + + + | HEMATOCRIT | 41.6 | 41.0 - 53.0 % | [facility] | | | | | | LABORATORY | | | | | | SERVICES, | | | | | | CORE | | + +---------+ + + + | MCV | 88.9 | 80.0 - 100.0 fL | [facility] | | | | | | LABORATORY | | | | | | SERVICES, | | | | | | CORE | | + +---------+ + + + | MCHC | 33.4 | 32.0 - 36.0 | [facility] | | | | | g/dL | LABORATORY | | | | | | SERVICES, | | | | | | CORE | | + +---------+ + + + | RDW SD | 40.7 | 35.1 - 46.3 fL | [facility] | | | | | | LABORATORY | | | | | | SERVICES, | | | | | | CORE | | + +---------+ + + + | PLATELET | 238 | 150 - 400 K/cu | [facility] | | | COUNT | | mm | LABORATORY | | | | | | SERVICES, | | | | | | CORE | | + +---------+ + + + | MPV | 9.6 (L) | 9.7 - 12.3 fL | [facility] | | | | | | LABORATORY | | | | | | SERVICES, | | | | | | CORE | | + +---------+ + + + | NRBC% | 0.0 | 0.0 - 0.3 % | [facility] | | | | | | LABORATORY | | | | | | SERVICES, | | | | | | CORE | | + +---------+ + + + | NRBC# | 0.00 | 0.00 - 0.02 | [facility] | | | | | K/cu mm | LABORATORY | | | | | | SERVICES, | | | | | | CORE | | + +---------+ + + + + + | Specimen | + + | Blood - Blood | | (substance) | + + + + + + + | Performing | Address | City/State/Zipcode | Phone Number | | Organization | | | | + + + + + | [facility] | [address] | [place] [address] | | | SERVICES, CORE | [address] | | | + + + + + APTT (ACT. PART. THROMBO TIME) (10/08/2018 4:54 AM PDT) + + + + + + | Component | Value | Ref Range | Performed | Pathologist | | | | | At | Signature | + + + + + + | APTT | 67.7 (H) | 26.0 - 36.0 | [facility] | | | | | seconds | LABORATORY | | | | | | SERVICES, | | | | | | CORE | | + + + + + + + + | Specimen | + + | Blood - Blood | | (substance) | + + + + + | Narrative | Performed At | + + + | Stroke, R/O Stroke, TIA Heparin Protocol aPTT 6 hrs after every | [facility] | | heparin rate change; If aPTT within target range for 2 consecutive | LABORATORY | | results, recheck every AM APTT values for monitoring heparin | SERVICES, CORE | | therapy may be affected by specimens processed >1 hour after | | | collection. APTT Therapeutic Range: | | | (75 - 120) sec Heparin levels of 0.35 - 0.7 U/mL | | | | | + + + + + + + + | Performing | Address | City/State/Zipcode | Phone Number | | Organization | | | | + + + + + | [facility] | [address] | [place] [address] | | | SERVICES, CORE | [address] | | | + + + + + CARDIOLOGY (10/08/2018 12:00 AM PDT) + + + | Narrative | Performed At | + + + | | | + + + CARDIOLOGY (10/08/2018 12:00 AM PDT) + + + | Narrative | Performed At | + + + | | | + + + CAPILLARY BLOOD GLUCOSE (NO CHG), POC (10/07/2018 10:36 PM PDT) + +-------+ + + + | Component | Value | Ref Range | Performed | Pathologist | | | | | At | Signature | + +-------+ + + + | BLOOD | 97 | 60 - 99 mg/dL | [facility] - | | | GLUCOSE, | | | [facility] | | | POC | | | [facility] | | | | | | OF CARE | | | | | | TESTS | | + +-------+ + + + + + | Specimen | + + | | + + + + + + + | Performing | Address | City/State/Zipcode | Phone Number | | Organization | | | | + + + + + | [facility] | [address] | [place], [place] | | | [facility] | [address] | [phone] | | | TESTS | | | | + + + + + APTT (ACT. PART. THROMBO TIME) (10/07/2018 8:46 PM PDT) + + + + + + | Component | Value | Ref Range | Performed | Pathologist | | | | | At | Signature | + + + + + + | APTT | 63.0 (H) | 26.0 - 36.0 | [facility] | | | | | seconds | LABORATORY | | | | | | SERVICES, | | | | | | CORE | | + + + + + + + + | Specimen | + + | Blood - Blood | | (substance) | + + + + + | Narrative | Performed At | + + + | Stroke, R/O Stroke, TIA Heparin Protocol aPTT 6 hrs after every | [facility] | | heparin rate change; If aPTT within target range for 2 consecutive | LABORATORY | | results, recheck every AM APTT values for monitoring heparin | SERVICES, CORE | | therapy may be affected by specimens processed >1 hour after | | | collection. APTT Therapeutic Range: | | | (75 - 120) sec Heparin levels of 0.35 - 0.7 U/mL | | | | | + + + + + + + + | Performing | Address | City/State/Zipcode | Phone Number | | Organization | | | | + + + + + | [facility] | [address] | [place] [address] | | | SERVICES, CORE | [address] | | | + + + + + CAPILLARY BLOOD GLUCOSE (NO CHG), POC (10/07/2018 5:41 PM PDT) + +-------+ + + + | Component | Value | Ref Range | Performed | Pathologist | | | | | At | Signature | + +-------+ + + + | BLOOD | 97 | 60 - 99 mg/dL | [facility] - | | | GLUCOSE, | | | [facility] | | | POC | | | [place] | | | | | | OF CARE | | | | | | TESTS | | + +-------+ + + + + + | Specimen | + + | | + + + + + + + | Performing | Address | City/State/Zipcode | Phone Number | | Organization | | | | + + + + + | [facility] | [address] | [place], [place] | | | [facility] | [address] | [address] | | | TESTS | | | | + + + + + TRANSTHORACIC ECHOCARDIOGRAM, ADULT (10/07/2018 3:46 PM PDT) + + + + + + | Component | Value | Ref Range | Performed | Pathologist | | | | | At | Signature | + + + + + + | AOV VMN | 4.0 | | [facility] | | | (AORTIC | | | OF | | | VALVE) | | | CARDIOLOGY | | + + + + + + | BIPLANE, EF | 67 | | [facility] | | | | | | OF | | | | | | CARDIOLOGY | | + + + + + + | EJECTION | 60 to 65 | | [facility] | | | FRACTION | | | OF | | | | | | CARDIOLOGY | | + + + + + + | LA | 3.7 | | [facility] | | | DIMENSION | | | OF | | | | | | CARDIOLOGY | | + + + + + + | LVIDD | 3.8 | | [facility] | | | | | | OF | | | | | | CARDIOLOGY | | + + + + + + | MV A VMAX | 0.3 | | [facility] | | | | | | OF | | | | | | CARDIOLOGY | | + + + + + + | MV E? | 0.1 | | [facility] | | | | | | OF | | | | | | CARDIOLOGY | | + + + + + + | MV E VMAX | 0.7 | | [facility] | | | | | | OF | | | | | | CARDIOLOGY | | + + + + + + | MV E/E' | 7.0 | | [facility] | | | (MITRAL | | | OF | | | VALVE) | | | CARDIOLOGY | | + + + + + + | MITRAL | 10.0 | | [facility] | | | ANNULUS | | | OF | | | MEDIAL E/E" | | | CARDIOLOGY | | | (TISSUE | | | | | | DOPPLER) | | | | | + + + + + + | RVSP | 34 | | [facility] | | | | | | OF | | | | | | CARDIOLOGY | | + + + + + + | RV TAPSE | 1.6 | | [facility] | | | | | | OF | | | | | | CARDIOLOGY | | + + + + + + | RV TDI S? | 14.0 | | [facility] | | | | | | OF | | | | | | CARDIOLOGY | | + + + + + + | TR VMAX | 2.5 | | [facility] | | | (TRICUSPID | | | OF | | | VALVE) | | | CARDIOLOGY | | + + + + + + | EJECTION | 62.5 | % | [facility] | | | FRACTION | | | OF | | | RANGE MEAN | | | CARDIOLOGY | | | VALUE | | | | | + + + + + + + + | Specimen | + + | | + + + ----+ + | Narrative | Performed At | + ----+ + | [facility] | [facility] DEPT OF | | [facility]3] Adult Echocardiography Laboratory [address] CARDIOLOGY | | [address], [place] [address] Ph: | | | Pt Name: GUILHERME JORGE | | | Study Date/Time 10/07/2018 / 3:46:49 PMMRN: [id number] | | | Most recent prior:Acc #: [id number] | | | No. previous echos: 0DOB: 1955 63 years Heart Rate: | | | 64 bpmHeight: 69.0 in Blood Pressure: | | | 147/86 mm/HgWeight: 175.0 lb Gender: | | | MBSA: 1.95 m | | | Order ID: [id number] Study | | | Location: KSonographer: Rosalind Arndt RDCSSonographer 2:Referring | | | Provider: Deion Vera Performed: 2D, Color flow, | | | Spectral Doppler, Lumason contrast and agitated saline bubble | | | study.Study Quality: This was a technically difficult study, but image | | | quality improved with echo contrast.Imaging Limitations: There is | | | prominent lung artifact seen.Exam Indication: Stroke/TIAHistory: 63 | | | y.o. male with HTN, HLD, recurrent basal cell carcinoma s/p MOHS | | | surgery and L neck radiation x 20 times in his left neck during the | | | last month. Patient history has been obtained from the EHR | | | Transthoracic Echocardiographic Report | | | + | | | ---------+Final Impressions: | | | | | | | | | | | | | | | 1. The left ventricular size is normal. | | | 2. The LV function is normal. | | | 3. | | | The aortic valve is trileaflet and restricted. The noncoronary cusp | | | with restricted and thickened. No aortic stenosis. | | | 4. Right ventricular size, thickness | | | and function are normal. 5. Saline contrast | | | study shows no evidence of right to left intra-atrial or | | | intra-pulmonary shunting. | | | 6. There are no prior exams | | | available for comparison. | | | | | | | | | + | | | + Description of Findings: Cardiac Rhythm: Normal sinus | | | rhythm.Left Ventricle: The left ventricular size is normal. Visually | | | estimated left ventricular ejection fraction is 60 - 65%. There is no | | | left ventricular hypertrophy. The LV diastolic filling pattern is | | | normal. The ejection fraction is 66.8 % as measured by Chavez's | | | biplane method. The LV function is normal. Due to poor endocardial | | | definition, ultrasound contrast was used (Lumason).Left Ventricular | | | Wall Motion: Left ventricular systolic thickening is normal in all | | | segments.Atria: Left atrial size is normal. Saline contrast study | | | shows no evidence of right to left intra-atrial or intra-pulmonary | | | shunting. Normal right atrium.Right Ventricle: Right ventricular size, | | | thickness and function are normal. TAPSE measures 1.55cm. The RV TDI | | | s' velocity is 14.0cm/sec.Aortic Valve: The aortic valve is trileaflet | | | and restricted. No indication of aortic valve regurgitation. The | | | noncoronary cusp with restricted and significantly thickened. No | | | aortic stenosis.Mitral Valve: The mitral valve is structurally normal. | | | Trace mitral valve regurgitation.Tricuspid Valve: The tricuspid valve | | | is structurally normal. Trace tricuspid regurgitation. The tricuspid | | | regurgitant velocity is 2.55 m/s, and with an assumed right atrial | | | pressure of 8 mmHg, the estimated right ventricular systolic pressure | | | is normal at 34.0 mmHg.Pulmonic Valve: The pulmonic valve is | | | structurally normal.Aorta: Visualized portions of the ascending aorta | | | and aortic root appear normal.Venous: The inferior vena cava is not | | | well visualized.Pericardium: No pericardial effusion is seen. | | | Additional Findings: There are no prior exams.2D Measurements | | | Doppler Measurements 2D NL Values | | | Aortic MitralLVID(d) 3.81 (3.5-5.7cm) Max Brandon | | | 1.33 Peak E 0.70 cm | | | m/s m/sLVID(s) 3.14 | | | Mean grad 4.0 Peak A 0.32 cm | | | mmHg | | | m/sIVS(d) 0.79 (0.6-1.1cm) LVOT Brandon 0.86 E/A Ratio | | | 2.17 cm | | | m/sLVPW(d) 0.79 (0.6-1.1cm) LVOT VTI 0.174 TDI (E/e') 7.0 | | | cm mLA A/Ps 2D | | | 3.70 (2.7-3.9cm) LVOT Diam 2.10 MV mn gd cm | | | cmLA vol A/L 32.1 (16-34) | | | LVOT SV 30.9 MR EROindex ml/m | | | indexed ml/m | | | LA vol MOD 59.1 (40-73ml) Tricuspid PulmonicBP | | | ml TR Vmax 2.55 PV Vmax 0.9LA | | | vol MOD 30.3 (16-34) m/s | | | m/sindex ml/m | | | RA Press 8 RVOT VTI 14.0LVEDV | | | 40.85 mmHg | | | cmindex ml/m | | | RVSP 34 PV mn gdBiplane EF 66.8 % | | | mmHg | | | Aorta: Index: | | | Ao Sinus 2.90 (2.1-3.5cm) 14.9 | | | cm | | | mm/m | | | Asc Ao 3.00 | | | 15.4 (prox) | | | cm mm/m | | | Evaluation of chamber size and geometry is accomplished through the | | | incorporation of linear, volumetric, and indexed values Report | | | electronically signed by: Nanette Ford MD (10/07/2018, 5:14:08 PM) | | | Final | | | Aorta: Index: | | | Ao Sinus 2.90 (2.1-3.5cm) 14.9 | | | cm mm/m | | | Asc Ao 3.00 15.4 | | | (prox) cm mm/m | | |Evaluation of chamber size and geometry is accomplished through the incorporation of | | |linear, volumetric, and indexed values | | | | | |Report electronically signed by: Nanette Ford MD (10/07/2018, 5:14:08 PM) | | | | | | | | | | | | Final | | + ----+ + + + | Procedure Note | + + | Interface, Cardiology Results - 10/07/2018 5:14 PM PDT [facility] | | [facility] Echocardiography Laboratory [address] [place] [address] | | [place], [place] [address] Pt Name: GUILHERME Genao | | LUISITO Study Date/Time 10/07/2018 / 3:46:49 PMMRN: [id number] Most | | recent prior:Acc #: [id number] No. previous echos: 0DOB: 1955 63 | | years Heart Rate: 64 bpmHeight: 69.0 in Blood Pressure: | | 147/86 mm/HgWeight: 175.0 lb Gender: MBSA: 1.95 m | | Order ID: [id number] Study Location: KSonographer: Rosalind Arndt | | RDCSSonographer 2:Referring Provider: Deion Vera Performed: 2D, Color | | flow, Spectral Doppler, Lumason contrast and agitated saline bubble study.Study Quality: | | This was a technically difficult study, but image quality improved with echo | | contrast.Imaging Limitations: There is prominent lung artifact seen.Exam Indication: | | Stroke/TIAHistory: 63 y.o. male with HTN, HLD, recurrent basal cell carcinoma s/p MOHS | | surgery and L neck radiation x 20 times in his left neck during the last month. Patient | | history has been obtained from the EHR Transthoracic Echocardiographic | | Report+ +Fi | | nal Impressions: | | | | 1. The left ventricular size is | | normal. 2. The LV function is normal. | | 3. The aortic valve is trileaflet and restricted. | | The noncoronary cusp with restricted and thickened. No aortic stenosis. | | 4. Right ventricular size, thickness and function are normal. | | 5. Saline contrast study shows no evidence of right to left intra-atrial or | | intra-pulmonary shunting. 6. There | | are no prior exams available for comparison. | | | | + + | | Description of Findings: Cardiac Rhythm: Normal sinus rhythm.Left Ventricle: The left | | ventricular size is normal. Visually estimated left ventricular ejection fraction is 60 | | - 65%. There is no left ventricular hypertrophy. The LV diastolic filling pattern is | | normal. The ejection fraction is 66.8 % as measured by Chavez's biplane method. The LV | | function is normal. Due to poor endocardial definition, ultrasound contrast was used | | (Lumason).Left Ventricular Wall Motion: Left ventricular systolic thickening is normal | | in all segments.Atria: Left atrial size is normal. Saline contrast study shows no | | evidence of right to left intra-atrial or intra-pulmonary shunting. Normal right | | atrium.Right Ventricle: Right ventricular size, thickness and function are normal. TAPSE | | measures 1.55cm. The RV TDI s' velocity is 14.0cm/sec.Aortic Valve: The aortic valve is | | trileaflet and restricted. No indication of aortic valve regurgitation. The noncoronary | | cusp with restricted and significantly thickened. No aortic stenosis.Mitral Valve: The | | mitral valve is structurally normal. Trace mitral valve regurgitation.Tricuspid Valve: | | The tricuspid valve is structurally normal. Trace tricuspid regurgitation. The tricuspid | | regurgitant velocity is 2.55 m/s, and with an assumed right atrial pressure of 8 mmHg, | | the estimated right ventricular systolic pressure is normal at 34.0 mmHg.Pulmonic Valve: | | The pulmonic valve is structurally normal.Aorta: Visualized portions of the ascending | | aorta and aortic root appear normal.Venous: The inferior vena cava is not well | | visualized.Pericardium: No pericardial effusion is seen. Additional Findings: There are | | no prior exams.2D Measurements Doppler Measurements 2D NL | | Values Aortic MitralLVID(d) 3.81 (3.5-5.7cm) Max Brandon 1.33 Peak E | | 0.70 cm m/s m/sLVID(s) 3.14 | | Mean grad 4.0 Peak A 0.32 cm mmHg | | m/sIVS(d) 0.79 (0.6-1.1cm) LVOT Brandon 0.86 E/A Ratio 2.17 cm | | m/sLVPW(d) 0.79 (0.6-1.1cm) LVOT VTI 0.174 TDI (E/e') | | 7.0 cm mLA A/Ps 2D 3.70 (2.7-3.9cm) LVOT Diam 2.10 | | MV mn gd cm cmLA vol A/L 32.1 (16-34) LVOT | | SV 30.9 MR EROindex ml/m | | indexed ml/m | | LA vol MOD 59.1 (40-73ml) Tricuspid PulmonicBP ml TR | | Vmax 2.55 PV Vmax 0.9LA vol MOD 30.3 (16-34) m/s | | m/sindex ml/m | | RA Press 8 RVOT VTI 14.0LVEDV 40.85 | | mmHg cmindex ml/m | | RVSP 34 PV mn gdBiplane EF 66.8 % mmHg | | Aorta: Index: | | Ao Sinus 2.90 (2.1-3.5cm) 14.9 cm | | mm/m | | Asc Ao 3.00 15.4 | | (prox) cm mm/m | | Evaluation of chamber size and geometry is accomplished through the incorporation of | | linear, volumetric, and indexed values Report electronically signed by: Nanette Ford | | (10/07/2018, 5:14:08 PM) Final | |Pulmonic Valve: The pulmonic valve is structurally normal. | |Aorta: Visualized portions of the ascending aorta and aortic root appear normal. | |Venous: The inferior vena cava is not well visualized. | |Pericardium: No pericardial effusion is seen. | | | |Additional Findings: There are no prior exams. | |2D Measurements Doppler Measurements | | | | 2D NL Values Aortic Mitral | |LVID(d) 3.81 (3.5-5.7cm) Max Brandon 1.33 Peak E 0.70 | | cm m/s m/s | |LVID(s) 3.14 Mean grad 4.0 Peak A 0.32 | | cm mmHg m/s | |IVS(d) 0.79 (0.6-1.1cm) LVOT Brandon 0.86 E/A Ratio 2.17 | | cm m/s | |LVPW(d) 0.79 (0.6-1.1cm) LVOT VTI 0.174 TDI (E/e') 7.0 | | cm m | |LA A/Ps 2D 3.70 (2.7-3.9cm) LVOT Diam 2.10 MV mn gd | | cm cm | |LA vol A/L 32.1 (16-34) LVOT SV 30.9 MR ERO | |index ml/m indexed ml/m | |LA vol MOD 59.1 (40-73ml) Tricuspid Pulmonic | |BP ml TR Vmax 2.55 PV Vmax 0.9 | |LA vol MOD 30.3 (16-34) m/s m/s | |index ml/m RA Press 8 RVOT VTI 14.0 | |LVEDV 40.85 mmHg cm | |index ml/m RVSP 34 PV mn gd | |Biplane EF 66.8 % mmHg | | | | Aorta: Index: | | Ao Sinus 2.90 (2.1-3.5cm) 14.9 | | cm mm/m | | Asc Ao 3.00 15.4 | | (prox) cm mm/m | |Evaluation of chamber size and geometry is accomplished through the incorporation of | |linear, volumetric, and indexed values | | | |Report electronically signed by: Nanette Ford MD (10/07/2018, 5:14:08 PM) | | | | | | | | Final | + + + + + + + | Performing | Address | City/State/Zipcode | Phone Number | | Organization | | | | + + + + + | [facility] | [address] | [place], [place] | | | CARDIOLOGY | [address] | [address] | | + + + + + APTT (ACT. PART. THROMBO TIME) (10/07/2018 2:21 PM PDT) + + + + + + | Component | Value | Ref Range | Performed | Pathologist | | | | | At | Signature | + + + + + + | APTT | 67.6 (H) | 26.0 - 36.0 | [facility] | | | | | seconds | LABORATORY | | | | | | SERVICES, | | | | | | CORE | | + + + + + + + + | Specimen | + + | Blood - Blood | | (substance) | + + + + + | Narrative | Performed At | + + + | Stroke, R/O Stroke, TIA Heparin Protocol aPTT 6 hrs after every | [facility] | | heparin rate change; If aPTT within target range for 2 consecutive | LABORATORY | | results, recheck every AM APTT values for monitoring heparin | SERVICES, CORE | | therapy may be affected by specimens processed >1 hour after | | | collection. APTT Therapeutic Range: | | | (75 - 120) sec Heparin levels of 0.35 - 0.7 U/mL | | | | | + + + + + + + + | Performing | Address | City/State/Zipcode | Phone Number | | Organization | | | | + + + + + | [facility] | [address] | [place] [address] | | | SERVICES, CORE | [address] | | | + + + + + URINE SCREEN FOR CULTURE (10/07/2018 1:47 PM PDT) + + + + + + | Component | Value | Ref Range | Performed | Pathologist | | | | | At | Signature | + + + + + + | URINE | Negative | Negative | [facility] | | | SCREEN FOR | | | LABORATORY | | | CULTURE | | | SERVICES, | | | | | | CORE | | + + + + + + + + | Specimen | + + | Urine - Urine | | (substance) | + + + + + | Narrative | Performed At | + + + | Culture Screen Negative. Culture not indicated. | [facility] | | | LABORATORY | | | SERVICES, CORE | + + + + + + + + | Performing | Address | City/State/Zipcode | Phone Number | | Organization | | | | + + + + + | [facility] | [address] | [place] [address] | | | SERVICES, CORE | [address] | | | + + + + + URINE, MICROSCOPIC EXAM (10/07/2018 1:47 PM PDT) + +---------+ + + + | Component | Value | Ref Range | Performed | Pathologist | | | | | At | Signature | + +---------+ + + + | RED CELLS | 179 (H) | 0 - 3 /hpf | [facility] | | | | | | LABORATORY | | | | | | SERVICES, | | | | | | CORE | | + +---------+ + + + | WHITE CELLS | <1 | 0 - 5 /hpf | [facility] | | | | | | LABORATORY | | | | | | SERVICES, | | | | | | CORE | | + +---------+ + + + | BACTERIA | None | None /hpf | [facility] | | | | | | LABORATORY | | | | | | SERVICES, | | | | | | CORE | | + +---------+ + + + | YEAST (LAB) | None | None /hpf | [facility] | | | | | | LABORATORY | | | | | | SERVICES, | | | | | | CORE | | + +---------+ + + + | SQUAMOUS | Few | None, Few /hpf | [facility] | | | EPITHELIAL | | | LABORATORY | | | | | | SERVICES, | | | | | | CORE | | + +---------+ + + + | MUCOUS | Few | None, Few /hpf | [facility] | | | | | | LABORATORY | | | | | | SERVICES, | | | | | | CORE | | + +---------+ + + + | NON-SQUAMOU | None | None /hpf | [facility] | | | S EPITH | | | LABORATORY | | | | | | SERVICES, | | | | | | CORE | | + +---------+ + + + | HYALINE | 0 | 0 - 2 /lpf | [facility] | | | CASTS | | | LABORATORY | | | | | | SERVICES, | | | | | | CORE | | + +---------+ + + + | GRANULAR | 0 | 0 - 2 /lpf | [facility] | | | CASTS | | | LABORATORY | | | | | | SERVICES, | | | | | | CORE | | + +---------+ + + + | CELLULAR | 0 | <=0 /lpf | [facility] | | | CASTS | | | LABORATORY | | | | | | SERVICES, | | | | | | CORE | | + +---------+ + + + | TRIPLE P04 | None | None, Few /hpf | [facility] | | | CRYSTALS | | | LABORATORY | | | | | | SERVICES, | | | | | | CORE | | + +---------+ + + + | CALCIUM | None | None, Few /hpf | [facility] | | | OXALATE | | | LABORATORY | | | LISA | | | SERVICES, | | | | | | CORE | | + +---------+ + + + | URIC ACID | None | None, Few /hpf | [facility] | | | CRYSTALS | | | LABORATORY | | | | | | SERVICES, | | | | | | CORE | | + +---------+ + + + | AMORPHOUS | None | None, Few /hpf | [facility] | | | CRYSTALS | | | LABORATORY | | | | | | SERVICES, | | | | | | CORE | | + +---------+ + + + + + | Specimen | + + | Urine - Urine | | (substance) | + + + + + + + | Performing | Address | City/State/Zipcode | Phone Number | | Organization | | | | + + + + + | [facility] | [address] | [place] [address] | | | SERVICES, CORE | [address] | | | + + + + + UA, DIPSTICK ONLY (10/07/2018 1:47 PM PDT) + + + + + + | Component | Value | Ref Range | Performed | Pathologist | | | | | At | Signature | + + + + + + | COLOR(UR) | Yellow | | [facility] | | | | | | LABORATORY | | | | | | SERVICES, | | | | | | CORE | | + + + + + + | APPEARANCE | Clear | | [facility] | | | | | | LABORATORY | | | | | | SERVICES, | | | | | | CORE | | + + + + + + | GLUCOSE(UR) | Negative | Negative, 50.0 | [facility] | | | | | mg/dL | LABORATORY | | | | | | SERVICES, | | | | | | CORE | | + + + + + + | PROTEIN(LAB | Negative | Negative, 30.0 | [facility] | | | ) | | mg/dL | LABORATORY | | | | | | SERVICES, | | | | | | CORE | | + + + + + + | BILIRUBIN | Negative | Negative | [facility] | | | | | | LABORATORY | | | | | | SERVICES, | | | | | | CORE | | + + + + + + | UROBILINOGE | <2.0 | <2.0 mg/dL | [facility] | | | N | | | LABORATORY | | | | | | SERVICES, | | | | | | CORE | | + + + + + + | PH(UR) | 6.0 | 5.0 - 8.0 | [facility] | | | | | | LABORATORY | | | | | | SERVICES, | | | | | | CORE | | + + + + + + | BLOOD | Moderate (A) | Negative | [facility] | | | | | | LABORATORY | | | | | | SERVICES, | | | | | | CORE | | + + + + + + | KETONES | Negative | Negative mg/dL | [facility] | | | | | | LABORATORY | | | | | | SERVICES, | | | | | | CORE | | + + + + + + | NITRITES | Negative | Negative | [facility] | | | | | | LABORATORY | | | | | | SERVICES, | | | | | | CORE | | + + + + + + | LEUKOCYTE | Negative | Negative | [facility] | | | ESTERASE | | | LABORATORY | | | | | | SERVICES, | | | | | | CORE | | + + + + + + | SPECIFIC | 1.028Comment: Specific | 1.005 - 1.030 | [facility] | | | GRAVITY | Manor performed by | | LABORATORY | | | | refractometry | | SERVICES, | | | | | | CORE | | + + + + + + + + | Specimen | + + | Urine - Urine | | (substance) | + + + + + + + | Performing | Address | City/State/Zipcode | Phone Number | | Organization | | | | + + + + + | [facility] | [address] | [place] [address] | | | SERVICES, CORE | [address] | | | + + + + + CAPILLARY BLOOD GLUCOSE (NO CHG), POC (10/07/2018 1:35 PM PDT) + +---------+ + + + | Component | Value | Ref Range | Performed | Pathologist | | | | | At | Signature | + +---------+ + + + | BLOOD | 102 (H) | 60 - 99 mg/dL | [facility] - | | | GLUCOSE, | | | [facility] | | | POC | | | [facility] | | | | | | OF CARE | | | | | | TESTS | | + +---------+ + + + + + | Specimen | + + | | + + + + + + + | Performing | Address | City/State/Zipcode | Phone Number | | Organization | | | | + + + + + | [facility] | [address] | [place], [place] | | | [facility] | [facility] | [phone] | | | TESTS | | | | + + + + + CAPILLARY BLOOD GLUCOSE (NO CHG), POC (10/07/2018 8:37 AM PDT) + +-------+ + + + | Component | Value | Ref Range | Performed | Pathologist | | | | | At | Signature | + +-------+ + + + | BLOOD | 90 | 60 - 99 mg/dL | [facility] - | | | GLUCOSE, | | | [facility] | | | POC | | | [facility] | | | | | | OF CARE | | | | | | TESTS | | + +-------+ + + + + + | Specimen | + + | | + + + + + + + | Performing | Address | City/State/Zipcode | Phone Number | | Organization | | | | + + + + + | [facility] | [address] | [place], [place] | | | [facility] | [facility] | [phone] | | | TESTS | | | | + + + + + APTT (ACT. PART. THROMBO TIME) (10/07/2018 8:08 AM PDT) + + + + + + | Component | Value | Ref Range | Performed | Pathologist | | | | | At | Signature | + + + + + + | APTT | 78.5 (H) | 26.0 - 36.0 | [facility] | | | | | seconds | LABORATORY | | | | | | SERVICES, | | | | | | CORE | | + + + + + + + + | Specimen | + + | Blood - Blood | | (substance) | + + + + + | Narrative | Performed At | + + + | Stroke, R/O Stroke, TIA Heparin Protocol aPTT 6 hrs after every | [facility] | | heparin rate change; If aPTT within target range for 2 consecutive | LABORATORY | | results, recheck every AM APTT values for monitoring heparin | SERVICES, CORE | | therapy may be affected by specimens processed >1 hour after | | | collection. APTT Therapeutic Range: | | | (75 - 120) sec Heparin levels of 0.35 - 0.7 U/mL | | | | | + + + + + + + + | Performing | Address | City/State/Zipcode | Phone Number | | Organization | | | | + + + + + | [facility] | [address] | [place] [address] | | | SERVICES, CORE | [address] | | | + + + + + CBC (HEMOGRAM) ONLY (10/07/2018 7:30 AM PDT) + + + + + + | Component | Value | Ref Range | Performed | Pathologist | | | | | At | Signature | + + + + + + | WHITE CELL | 11.19 (H) | 3.50 - 10.80 | [facility] | | | COUNT | | K/cu mm | LABORATORY | | | | | | SERVICES, | | | | | | CORE | | + + + + + + | RED CELL | 4.74 | 4.50 - 6.00 | [facility] | | | COUNT | | M/cu mm | LABORATORY | | | | | | SERVICES, | | | | | | CORE | | + + + + + + | HEMOGLOBIN | 13.9 | 13.5 - 17.5 | [facility] | | | | | g/dL | LABORATORY | | | | | | SERVICES, | | | | | | CORE | | + + + + + + | HEMATOCRIT | 41.8 | 41.0 - 53.0 % | [facility] | | | | | | LABORATORY | | | | | | SERVICES, | | | | | | CORE | | + + + + + + | MCV | 88.2 | 80.0 - 100.0 fL | [facility] | | | | | | LABORATORY | | | | | | SERVICES, | | | | | | CORE | | + + + + + + | MCHC | 33.3 | 32.0 - 36.0 | [facility] | | | | | g/dL | LABORATORY | | | | | | SERVICES, | | | | | | CORE | | + + + + + + | RDW SD | 40.0 | 35.1 - 46.3 fL | [facility] | | | | | | LABORATORY | | | | | | SERVICES, | | | | | | CORE | | + + + + + + | PLATELET | 247 | 150 - 400 K/cu | [facility] | | | COUNT | | mm | LABORATORY | | | | | | SERVICES, | | | | | | CORE | | + + + + + + | MPV | 9.6 (L) | 9.7 - 12.3 fL | [facility] | | | | | | LABORATORY | | | | | | SERVICES, | | | | | | CORE | | + + + + + + | NRBC% | 0.0 | 0.0 - 0.3 % | [facility] | | | | | | LABORATORY | | | | | | SERVICES, | | | | | | CORE | | + + + + + + | NRBC# | 0.00 | 0.00 - 0.02 | [facility] | | | | | K/cu mm | LABORATORY | | | | | | SERVICES, | | | | | | CORE | | + + + + + + + + | Specimen | + + | Blood - Blood | | (substance) | + + + + + + + | Performing | Address | City/State/Zipcode | Phone Number | | Organization | | | | + + + + + | [facility] | [address] | [place] [address] | | | SERVICES, CORE | [address] | | | + + + + + CBC AND AUTO DIFF (10/07/2018 1:03 AM PDT) + + + + + + | Component | Value | Ref Range | Performed | Pathologist | | | | | At | Signature | + + + + + + | WHITE CELL | 11.17 (H) | 3.50 - 10.80 | [facility] | | | COUNT | | K/cu mm | LABORATORY | | | | | | SERVICES, | | | | | | CORE | | + + + + + + | RED CELL | 4.97 | 4.50 - 6.00 | [facility] | | | COUNT | | M/cu mm | LABORATORY | | | | | | SERVICES, | | | | | | CORE | | + + + + + + | HEMOGLOBIN | 14.6 | 13.5 - 17.5 | [facility] | | | | | g/dL | LABORATORY | | | | | | SERVICES, | | | | | | CORE | | + + + + + + | HEMATOCRIT | 43.9 | 41.0 - 53.0 % | [facility] | | | | | | LABORATORY | | | | | | SERVICES, | | | | | | CORE | | + + + + + + | MCV | 88.3 | 80.0 - 100.0 fL | [facility] | | | | | | LABORATORY | | | | | | SERVICES, | | | | | | CORE | | + + + + + + | MCHC | 33.3 | 32.0 - 36.0 | [facility] | | | | | g/dL | LABORATORY | | | | | | SERVICES, | | | | | | CORE | | + + + + + + | RDW SD | 40.0 | 35.1 - 46.3 fL | [facility] | | | | | | LABORATORY | | | | | | SERVICES, | | | | | | CORE | | + + + + + + | PLATELET | 257 | 150 - 400 K/cu | [facility] | | | COUNT | | mm | LABORATORY | | | | | | SERVICES, | | | | | | CORE | | + + + + + + | MPV | 9.4 (L) | 9.7 - 12.3 fL | [facility] | | | | | | LABORATORY | | | | | | SERVICES, | | | | | | CORE | | + + + + + + | NRBC% | 0.0 | 0.0 - 0.3 % | [facility] | | | | | | LABORATORY | | | | | | SERVICES, | | | | | | CORE | | + + + + + + | NRBC# | 0.00 | 0.00 - 0.02 | [facility] | | | | | K/cu mm | LABORATORY | | | | | | SERVICES, | | | | | | CORE | | + + + + + + | NEUTROPHIL | 57.2 | 50.0 - 70.0 % | [facility] | | | % | | | LABORATORY | | | | | | SERVICES, | | | | | | CORE | | + + + + + + | LYMPHOCYTE | 30.4 | 18.0 - 42.0 % | [facility] | | | % | | | LABORATORY | | | | | | SERVICES, | | | | | | CORE | | + + + + + + | MONOCYTE % | 8.1 | 3.5 - 9.0 % | [facility] | | | | | | LABORATORY | | | | | | SERVICES, | | | | | | CORE | | + + + + + + | EOS % | 3.0 | 1.0 - 3.0 % | [facility] | | | | | | LABORATORY | | | | | | SERVICES, | | | | | | CORE | | + + + + + + | BASO % | 1.1 | 0.0 - 2.0 % | [facility] | | | | | | LABORATORY | | | | | | SERVICES, | | | | | | CORE | | + + + + + + | IG% | 0.2Comment: Increased | 0.0 - 1.0 % | [facility] | | | | immature granulocytes | | LABORATORY | | | | (IG) define a left | | SERVICES, | | | | shift. Immature | | CORE | | | | granulocytes (IG) are an | | | | | | automated count of | | | | | | metamyelocytes, | | | | | | myelocytes and | | | | | | promyelocytes. Bands | | | | | | are not included in the | | | | | | IG count. Bands are | | | | | | included in the | | | | | | neutrophil count. | | | | + + + + + + | NEUTROPHIL | 6.40 | 1.80 - 7.70 | [facility] | | | # | | K/cu mm | LABORATORY | | | | | | SERVICES, | | | | | | CORE | | + + + + + + | LYMPHOCYTE | 3.40 | 1.00 - 4.80 | [facility] | | | # | | K/cu mm | LABORATORY | | | | | | SERVICES, | | | | | | CORE | | + + + + + + | MONOCYTE # | 0.90 | 0.10 - 0.90 | [facility] | | | | | K/cu mm | LABORATORY | | | | | | SERVICES, | | | | | | CORE | | + + + + + + | EOS # | 0.33 | 0.00 - 0.50 | [facility] | | | | | K/cu mm | LABORATORY | | | | | | SERVICES, | | | | | | CORE | | + + + + + + | BASO # | 0.12 (H) | 0.00 - 0.10 | [facility] | | | | | K/cu mm | LABORATORY | | | | | | SERVICES, | | | | | | CORE | | + + + + + + | IG# | 0.02 | 0.00 - 0.10 | [facility] | | | | | K/cu mm | LABORATORY | | | | | | SERVICES, | | | | | | CORE | | + + + + + + + + | Specimen | + + | Blood - Blood | | (substance) | + + + + + | Narrative | Performed At | + + + | Increased immature granulocytes (IG) define a left shift. | [facility] | | Immature granulocytes (IG) are an automated count of metamyelocytes, | LABORATORY | | myelocytes and promyelocytes. Bands are not included in the IG count. | SERVICES, CORE | | Bands are included in the neutrophil count. | | + + + + + + + + | Performing | Address | City/State/Zipcode | Phone Number | | Organization | | | | + + + + + | [facility] | [address] | [place] [address] | | | SERVICES, CORE | [address] | | | + + + + + APTT (ACT. PART. THROMBO TIME) (10/07/2018 1:03 AM PDT) + + + + + + | Component | Value | Ref Range | Performed | Pathologist | | | | | At | Signature | + + + + + + | APTT | 41.3 (H) | 26.0 - 36.0 | [facility] | | | | | seconds | LABORATORY | | | | | | SERVICES, | | | | | | CORE | | + + + + + + + + | Specimen | + + | Blood - Blood | | (substance) | + + + + + | Narrative | Performed At | + + + | APTT values for monitoring heparin therapy may be affected by | [facility] | | specimens processed >1 hour after collection. APTT Therapeutic | LABORATORY | | Range: (75 - 120) sec Heparin | SERVICES, CORE | | levels of 0.35 - 0.7 U/mL | | + + + + + + + + | Performing | Address | City/State/Zipcode | Phone Number | | Organization | | | | + + + + + | [facility] | [address] | [place] [address] | | | SERVICES, CORE | [address] | | | + + + + + INR (10/07/2018 1:03 AM PDT) + +-------+ + + + | Component | Value | Ref Range | Performed | Pathologist | | | | | At | Signature | + +-------+ + + + | INR | 1.03 | 0.90 - 1.20 INR | [facility] | | | | | | LABORATORY | | | | | | SERVICES, | | | | | | CORE | | + +-------+ + + + + + | Specimen | + + | Blood - Blood | | (substance) | + + + + + | Narrative | Performed At | + + + | INR Therapeutic ranges for full anticoagulation: INR for | [facility] | | Venous Thromboembolism (2.0 - 3.0) INR INR for | LABORATORY | | most patients with mech. valves (2.5 - 3.5) INR | SERVICES, CORE | + + + + + + + + | Performing | Address | City/State/Zipcode | Phone Number | | Organization | | | | + + + + + | [facility] | [address] | [place] [address] | | | SERVICES, CORE | [address] | | | + + + + + HEMOGLOBIN A1C, BLOOD (10/07/2018 1:03 AM PDT) + + + + + + | Component | Value | Ref Range | Performed | Pathologist | | | | | At | Signature | + + + + + + | HEMOGLOBIN | 5.9 (H)Comment: Hgb A1C | <5.7 % | [facility] | | | A1C | Interpretive | | LABORATORY | | | | Information: | | SERVICES, | | | | <5.7% - Normal | | SPECIAL IMM | | | | 5.7-6.4% - Consistent | | + [facility] | | | | with pre-diabetes | | | | | | >6.4% - Consistent | | | | | | with diabetes | | | | | | | | | | + + + + + + + + | Specimen | + + | Blood - Blood | | (substance) | + + + + + | Narrative | Performed At | + + + | Alternate forms of testing such as fructosamine should be | [facility] | | considered for monitoring semiconductor processing technician glycemic control in patients with: | LABORATORY | | Increased red cell turnover, certain hemoglobinopathies (e.g., HbS, | SERVICES, | | HbE, HbC and thalassemia syndromes), anemias, blood loss, chronic | SPECIAL IMM + | | liver disease and hemochromatosis (artefactually low HbA1c); iron | [facility] | | deficiency anemia (artefactually high HbA1c due to enhanced glycation | | | of hemoglobin). | | + + + + + + + + | Performing | Address | City/State/Zipcode | Phone Number | | Organization | | | | + + + + + | [facility] | [address] | [place] [address] | | | SERVICES, SPECIAL | [address] | | | | IMM + [facility] | | | | + + + + + LIPID SET (TRIG, T CHOL, HDL, CALC LDL) (10/07/2018 1:03 AM PDT) + +---------+ + + + | Component | Value | Ref Range | Performed | Pathologist | | | | | At | Signature | + +---------+ + + + | CHOLESTEROL | 148 | <200 mg/dL | [facility] | | | (LAB) | | | LABORATORY | | | | | | SERVICES, | | | | | | CORE | | + +---------+ + + + | TRIGLYCERID | 147 | <150 mg/dL | [facility] | | | ES | | | LABORATORY | | | | | | SERVICES, | | | | | | CORE | | + +---------+ + + + | HDL | 37 (L) | >40 mg/dL | [facility] | [...] +---------+ + + + | LDL | 82 | <100 mg/dL | [facility] | | | CHOLESTEROL | | | LABORATORY | | | , | | | SERVICES, | | | CALCULATED | | | CORE | | + +---------+ + + + | VLDL | 29 | <31 mg/dL | [facility] | | | CHOLESTEROL | | | LABORATORY | | | , | | | SERVICES, | | | CALCULATED | | | CORE | | + +---------+ + + + | NON-HDL | 111 | <130 mg/dL | [facility] | | [...] | + + + + + | [facility] | [address] | [place] [address] | | | SERVICES, CORE | [address] | | | + + + + + COMPLETE METABOLIC SET (NA,K,CL,CO2,BUN,CREAT,GLUC,CA,AST,ALT,BILI TOTAL,ALK PHOS,ALB,PROT TOTAL) (10/07/2018 1:03 AM PDT) + +---------+ + + + | Component | Value | Ref Range | Performed | Pathologist | | | | | At | Signature | + +---------+ + + + | GLUCOSE, | 117 (H) | 70 - 99 mg/dL | [facility] | | | PLASMA | | | LABORATORY | | | (LAB) | | | SERVICES, | | | | | | CORE | | + +---------+ + + + | BUN, PLASMA | 21 (H) | 6 - 20 mg/dL | [facility] | | | (LAB) | | | LABORATORY | | | | | | SERVICES, | | | | | | CORE | | + +---------+ + + + | CREATININE | 1.25 | 0.70 - 1.30 | [facility] | | | PLASMA | | mg/dL | LABORATORY | | | (LAB) | | | SERVICES, | | | | | | CORE | | + +---------+ + + + | EGFR | >60 | >60 mL/min | [facility] | | | - | | | LABORATORY | | | CYPRIOT | | | SERVICES, | | | | | | CORE | | + +---------+ + + + | EGFR NON | 58 (L) | >60 mL/min | [facility] | | | -MAURO | | | LABORATORY | | | RICAN | | | SERVICES, | | | | | | CORE | | + +---------+ + + + | SODIUM, | 140 | 136 - 145 | [facility] | | | PLASMA | | mmol/L | LABORATORY | | | (LAB) | | | SERVICES, | | | | | | CORE | | + +---------+ + + + | POTASSIUM, | 4.1 | 3.4 - 5.0 | [facility] | | | PLASMA | | mmol/L | LABORATORY | | | (LAB) | | | SERVICES, | | | | | | CORE | | + +---------+ + + + | CHLORIDE, | 107 | 97 - 108 mmol/L | [facility] | | | PLASMA | | | LABORATORY | | | (LAB) | | | SERVICES, | | | | | | CORE | | + +---------+ + + + | TOTAL CO2, | 28 | 21 - 32 mmol/L | [facility] | | | PLASMA | | | LABORATORY | | | (LAB) | | | SERVICES, | | | | | | CORE | | + +---------+ + + + | CALCIUM, | 9.2 | 8.6 - 10.2 | [facility] | | | PLASMA | | mg/dL | LABORATORY | | | (LAB) | | | SERVICES, | | | | | | CORE | | + +---------+ + + + | CALCIUM(ALB | 9.8 | 8.6 - 10.2 | [facility] | | | CORRECTED) | | mg/dL | LABORATORY | | | | | | SERVICES, | | | | | | CORE | | + +---------+ + + + | BILIRUBIN | 0.4 | 0.3 - 1.2 mg/dL | [facility] | | | TOTAL | | | LABORATORY | | | | | | SERVICES, | | | | | | CORE | | + +---------+ + + + | TOTAL | 7.0 | 6.4 - 8.2 g/dL | [facility] | | | PROTEIN, | | | LABORATORY | | | PLASMA | | | SERVICES, | | | (LAB) | | | CORE | | + +---------+ + + + | ALBUMIN, | 3.3 (L) | 3.5 - 4.7 g/dL | [facility] | | | PLASMA | | | LABORATORY | | | (LAB) | | | SERVICES, | | | | | | CORE | | + +---------+ + + + | ALK PHOS | 117 | 56 - 119 U/L | [facility] | | | | | | LABORATORY | | | | | | SERVICES, | | | | | | CORE | | + +---------+ + + + | AST(SGOT) | 17 | <=41 U/L | [facility] | | | | | | LABORATORY | | | | | | SERVICES, | | | | | | CORE | | + +---------+ + + + | ALT (SGPT) | 19 | <=60 U/L | [facility] | | | | | | LABORATORY | | | | | | SERVICES, | | | | | | CORE | | + +---------+ + + + | ANION GAP | 5 | 4 - 11 mmol/L | [facility] | | | | | | LABORATORY | | | | | | SERVICES, | | | | | | CORE | | + +---------+ + + + | ANION | 6 | 4 - 11 mmol/L | [facility] | | | GAP(ALB | | | LABORATORY | | | CORRECTED) | | | SERVICES, | | | | | | CORE | | + +---------+ + + + | POTASSIUM | No Hemo | | [facility] | | | CMNT | | | LABORATORY | | | | | | SERVICES, | | | | | | CORE | | + +---------+ + + + | BILI T CMNT | No Hemo | | [facility] | | | | | | LABORATORY | | | | | | SERVICES, | | | | | | CORE | | + +---------+ + + + | AST CMNT | No Hemo | | [facility] [...] Performed At | + + + | GFR is estimated using the MDRD equation recommended by the | [facility] | | National Kidney Disease Education Program. Estimated GFR | LABORATORY | | Interpretive Information: <60 mL/min/1.73 sq m | SERVICES, CORE | | Chronic Kidney Disease <15 mL/min/1.73 sq m | | | Kidney Failure Estimated GFR greater than 60 mL/min/1.73 sq m is of | | | limited clinical value. The MDRD equation is not valid in the | | | following situations: - Patients under 18 years of age - Severe | | | malnutrition or obesity - Vegetarian diet - Rapidly changing kidney | | | function - Amputees, paraplegics, or other muscle-wasting diseses | | + + + + + + + + | Performing | Address | City/State/Zipcode | Phone Number | | Organization | | | | + + + + + | [facility] | [address] | [place] [address] | | | SERVICES, CORE | [address] | | | + + + + + CAPILLARY BLOOD GLUCOSE (NO CHG), POC (10/07/2018 12:47 AM PDT) + +---------+ + + + | Component | Value | Ref Range | Performed | Pathologist | | | | | At | Signature | + +---------+ + + + | BLOOD | 113 (H) | 60 - 99 mg/dL | [facility] | | | GLUCOSE, | | | [facility] | | | POC | | | [facility] | | | | | | OF CARE | | | | | | TESTS | | + +---------+ + + + + + | Specimen | + + | | + + + + + + + | Performing | Address | City/State/Zipcode | Phone Number | | Organization | | | | + + + + + | [facility] | [address] | [place], [place] | | | [facility] | [address] | [address] | | | TESTS | | | | + + + + + CARDIOLOGY (10/07/2018 12:00 AM PDT) + + + | Narrative | Performed At | + + + | | | + + + documented in this encounter Visit Diagnoses + + | Diagnosis | + + | Acute ischemic left ICA stroke (HCC) - Primary Unspecified cerebral artery occlusion | | with cerebral infarction | + + | Acute ischemic left RNP stroke (HCC) Unspecified cerebral artery occlusion with | | cerebral infarction | + + | Carotid stenosis, left Occlusion and stenosis of carotid artery without mention of | | cerebral infarction | + + | Essential hypertension | + + | Malignant neoplasm of skin Unspecified malignant neoplasm of skin, site unspecified | + + | Hematuria | + + | Urinary frequency | + + documented in this encounter Administered Medications + +--------+ +--------+------+------+ | Medication Order | MAR | Action | Dose | Rate | Site | | | Action | Date | | | | + +--------+ +--------+------+------+ | acetaminophen (TYLENOL) tablet | Given | 10/09/19 | 325 mg | | | | 650 mg 650 mg, oral, EVERY 4 | | 19 8:45 | | | | | HOURS NEEDED, Starting Fri | | AM PDT | | | | | 10/06/18 at 2347, Until 10/09/18 | | | | | | | at 1231, mild pain, first line, | | | | | | | multimodal pain control | | | | | | + +--------+ +--------+------+------+ +-------+ +--------+---+---+ | Given | 10/09/19 | 650 mg | | | | | 19 3:06 | | | | | | AM PDT | | | | +-------+ +--------+---+---+ | Given | 10/08/19 | 325 mg | | | | | 19 8:53 | | | | | | AM PDT | | | | +-------+ +--------+---+---+ +---+---+ | | | +---+---+ + +-------+ +-------+---+---+ | aspirin chewable tablet 81 mg | Given | 10/09/19 | 81 mg | | | | 81 mg, oral, DAILY, First dose on | | 19 8:40 | | | | | 10/07/18 at 0900, Until | | AM PDT | | | | | Discontinued | | | | | | + +-------+ +-------+---+---+ +-------+ +-------+---+---+ | Given | 10/08/19 | 81 mg | | | | | 19 8:53 | | | | | | AM PDT | | | | +-------+ +-------+---+---+ +---+---+ | | | +---+---+ + +-------+ +--------+---+---+ | aspirin tablet 325 mg 325 mg, | Given | 10/11/19 | 325 mg | | | | oral, DAILY, First dose on Sun | | 19 6:00 | | | | | 10/08/18 at 1300, Until | | AM PDT | | | | | Discontinued | | | | | | + +-------+ +--------+---+---+ +-------+ +--------+---+---+ | Given | 10/10/19 | 325 mg | | | | | 19 5:30 | | | | | | AM PDT | | | | +-------+ +--------+---+---+ | Given | 10/09/19 | 325 mg | | | | | 19 1:07 | | | | | | PM PDT | | | | +-------+ +--------+---+---+ +---+---+ | | | +---+---+ + +-------+ +-------+---+---+ | atorvastatin (LIPITOR) tablet | Given | 10/11/19 | 40 mg | | | | 40 mg 40 mg, oral, DAILY, First | | 19 8:28 | | | | | dose on 10/07/18 at 0900, Until | | AM PDT | | | | | Discontinued | | | | | | + +-------+ +-------+---+---+ +-------+ +-------+---+---+ | Given | 10/10/19 | 40 mg | | | | | 19 8:50 | | | | | | AM PDT | | | | +-------+ +-------+---+---+ | Given | 10/09/19 | 40 mg | | | | | 19 8:40 | | | | | | AM PDT | | | | +-------+ +-------+---+---+ +---+---+ | | | +---+---+ + +-------+ +-------+---+---+ | atorvastatin (LIPITOR) tablet | Given | 10/09/19 | 80 mg | | | | 80 mg 80 mg, oral, ONCE, 1 dose, | | 19 9:13 | | | | | 10/08/18 at 2100 | | PM PDT | | | | + +-------+ +-------+---+---+ +---+---+ | | | +---+---+ + +-------+ +--------+---+---+ | atropine injection | Given | 10/10/19 | 0.5 mg | | | | intravenous, INTRAPROCEDURE PRN, | | 19 10:15 | | | | | Starting 10/09/18 at 1015, | | AM PDT | | | | | Until Tue10/09/18 at 1015 | | | | | | + +-------+ +--------+---+---+ +---+---+ | | | +---+---+ + +---------+ +-----+---+---+ | ceFAZolin IV 2 gram in dextrose | New Bag | 10/10/19 | 2 g | | | | (RTU) 2 g, intravenous, | | 19 9:35 | | | | | PREPROCEDURE ONCE, 1 dose, | | AM PDT | | | | | Starting 10/09/18 at 0641, | | | | | | | Until Tue10/09/18 at 1005 | | | | | | + +---------+ +-----+---+---+ +---+---+ | | | +---+---+ + +-------+ +--------+---+---+ | clopidogrel (PLAVIX) tablet 600 | Given | 10/09/19 | 600 mg | | | | mg 600 mg, oral, ONCE, 1 dose, | | 19 1:08 | | | | | [place] 10/08/18 at 1300 | | PM PDT | | | | + +-------+ +--------+---+---+ +---+---+ | | | +---+---+ + +-------+ +-------+---+---+ | clopidogrel (PLAVIX) tablet 75 | Given | 10/11/19 | 75 mg | | | | mg 75 mg, oral, DAILY, First | | 19 6:00 | | | | | dose on 10/09/18 at 0600, Until | | AM PDT | | | | | Discontinued | | | | | | + +-------+ +-------+---+---+ +-------+ +-------+---+---+ | Given | 10/10/19 | 75 mg | | | | | 19 5:30 | | | | | | AM PDT | | | | +-------+ +-------+---+---+ +---+---+ | | | +---+---+ + +-------+ +--------+---+---+ | fentaNYL (SUBLIMAZE) injection | Given | 10/09/19 | 50 mcg | | | | 25-100 mcg 25-100 mcg, | | 19 11:00 | | | | | intravenous, INTRAPROCEDURE PRN, | | AM PDT | | | | | 20 doses, Starting 10/08/18 at | | | | | | | 0749, Until 10/08/18 at 1147, | | | | | | | periprocedural pain management | | | | | | + +-------+ +--------+---+---+ +-------+ +--------+---+---+ | Given | 10/09/19 | 25 mcg | | | | | 19 10:55 | | | | | | AM PDT | | | | +-------+ +--------+---+---+ +---+---+ | | | +---+---+ + +-------+ +--------+---+---+ | fentaNYL (SUBLIMAZE) injection | Given | 10/10/19 | 50 mcg | | | | 25-100 mcg 25-100 mcg, | | 19 10:25 | | | | | intravenous, INTRAPROCEDURE PRN, | | AM PDT | | | | | 20 doses, Starting Tue10/09/18 at | | | | | | | 0640, Until Tue10/09/18 at 1110, | | | | | | | periprocedural pain management | | | | | | + +-------+ +--------+---+---+ +-------+ +--------+---+---+ | Given | 10/10/19 | 50 mcg | | | | | 19 9:35 | | | | | | AM PDT | | | | +-------+ +--------+---+---+ +---+---+ | | | +---+---+ + +-------+ +--------+---+---+ | gabapentin (NEURONTIN) capsule | Given | 10/11/19 | 900 mg | | | | 900 mg 900 mg, oral, THREE TIMES | | 19 8:28 | | | | | DAILY, First dose on 10/07/18 | | AM PDT | | | | | at 0900, Until Discontinued | | | | | | + +-------+ +--------+---+---+ +-------+ +--------+---+---+ | Given | 10/10/19 | 900 mg | | | | | 19 9:00 | | | | | | PM PDT | | | | +-------+ +--------+---+---+ | Given | 10/10/19 | 900 mg | | | | | 19 3:17 | | | | | | PM PDT | | | | +-------+ +--------+---+---+ +---+---+ | | | +---+---+ + + + + +-------+---+ | heparin 25,000 Units in NaCl | Rate/Dos | 10/09/19 | 1,350 | 13.5 | | | 0.9 % (NS) 250 mL (100 Units/mL) | e Verify | 19 8:23 | Units/hr | mL/hr | | | IV infusion 1-2,500 Units/hr | | AM PDT | | | | | (0.01-25 mL/hr), intravenous, | | | | | | | CONTINUOUS, Starting 10/07/18 | | | | | | | at 0030, Until 10/08/18 at 1137 | | | | | | + + + + +-------+---+ + + + +-------+---+ | Rate/Dose Verify | 10/09/19 | 1,350 | 13.5 | | | | 19 3:07 | Units/hr | mL/hr | | | | AM PDT | | | | + + + +-------+---+ | Rate/Dose Verify | 10/08/19 | 1,350 | 13.5 | | | | 19 9:39 | Units/hr | mL/hr | | | | PM PDT | | | | + + + +-------+---+ +---+---+ | | | +---+---+ + +-------+ +--------+---+---+ | heparin injection | Given | 10/10/19 | 1,000 | | | | INTRAPROCEDURE PRN, Starting Mon | | 19 10:14 | Units | | | | 10/09/18 at 0957, Until Tue10/09/18 | | AM PDT | | | | | at 1014 | | | | | | + +-------+ +--------+---+---+ +-------+ +---------+---+---+ | Given | 10/10/19 | 5 Units | | | | | 19 9:57 | | | | | | AM PDT | | | | +-------+ +---------+---+---+ +---+---+ | | | +---+---+ + +-------+ +------+---+---+ | hydrALAZINE (APRESOLINE) | Given | 10/10/19 | 5 mg | | | | injection intravenous, | | 19 10:47 | | | | | INTRAPROCEDURE PRN, Starting Mon | | AM PDT | | | | | 10/09/18 at 1047, Until 10/09/18 | | | | | | | at 1047 | | | | | | + +-------+ +------+---+---+ +---+---+ | | | +---+---+ + +-------+ + +---+---+ | HYDROcodone-acetaminophen | Given | 10/11/19 | 1 tablet | | | | (NORCO) 10-325 mg 1 tablet 1 | | 19 6:00 | | | | | tablet, oral, EVERY 6 HOURS | | AM PDT | | | | | NEEDED, Starting 10/07/18 at | | | | | | | 0010, Until 10/10/18 at 2044, | | | | | | | moderate pain | | | | | | + +-------+ + +---+---+ +-------+ + +---+---+ | Given | 10/10/19 | 1 tablet | | | | | 19 8:53 | | | | | | PM PDT | | | | +-------+ + +---+---+ | Given | 10/10/19 | 1 tablet | | | | | 19 1:26 | | | | | | PM PDT | | | | +-------+ + +---+---+ +---+---+ | | | +---+---+ + +-------+ +-------+---+---+ | iohexol (OMNIPAQUE) 300 mg | Given | 10/10/19 | 80 mL | | | | iodine/mL 150 mL 150 mL, | | 19 10:41 | | | | | intra-arterial, PROCEDURE ONCE, 1 | | AM PDT | | | | | dose, [facility] 10/09/18 at 1045 | | | | | | + +-------+ +-------+---+---+ +---+---+ | | | +---+---+ + +-------+ +-------+---+---+ | iohexol (OMNIPAQUE) 300 mg | Given | 10/09/19 | 75 mL | | | | iodine/mL 75 mL 75 mL, | | 19 11:19 | | | | | intra-arterial, PROCEDURE ONCE, 1 | | AM PDT | | | | | dose, [facility] 10/08/18 at 1130 | | | | | | + +-------+ +-------+---+---+ +---+---+ | | | +---+---+ + +-------+ +-------+---+---+ | lisinopril (PRINIVIL) tablet 10 | Given | 10/11/19 | 10 mg | | | | mg 10 mg, oral, DAILY, First | | 19 8:28 | | | | | dose on Tue10/09/18 at 1245, Until | | AM PDT | | | | | Discontinued | | | | | | + +-------+ +-------+---+---+ +-------+ +-------+---+---+ | Given | 10/10/19 | 10 mg | | | | | 19 3:17 | | | | | | PM PDT | | | | +-------+ +-------+---+---+ +---+---+ | | | +---+---+ + +-------+ +------+---+---+ | midazolam (PF) (VERSED) | Given | 10/10/19 | 1 mg | | | | injection 1-5 mg 1-5 mg, | | 19 10:25 | | | | | intravenous, INTRAPROCEDURE PRN, | | AM PDT | | | | | 20 doses, Starting 10/09/18 at | | | | | | | 0640, Until Tue10/09/18 at 1110, | | | | | | | periprocedural sedation | | | | | | + +-------+ +------+---+---+ +-------+ +--------+---+---+ | Given | 10/10/19 | 1 mg | | | | | 19 9:35 | | | | | | AM PDT | | | | +-------+ +--------+---+---+ | Given | 10/09/19 | 0.5 mg | | | | | 19 10:55 | | | | | | AM PDT | | | | +-------+ +--------+---+---+ +---+---+ | | | +---+---+ + + + +-------+-------+---+ | niCARdipine (CARDENE) 40 mg/200 | Rate/Dos | 10/10/19 | 2.5 | 12.5 | | | mL (0.2 mg/mL) IV infusion (RTU) | e Change | 19 1:16 | mg/hr | mL/hr | | | 2.5-15 mg/hr (12.5-75 mL/hr), | | PM PDT | | | | | intravenous, CONTINUOUS, Starting | | | | | | | 10/09/18 at 1130, Until Tue | | | | | | | 10/10/18 at 0807 | | | | | | + + + +-------+-------+---+ + + +---------+ +---+ | Rate/Dose Verify | 10/10/19 | 5 mg/hr | 25 mL/hr | | | | 19 1:00 | | | | | | PM PDT | | | | + + +---------+ +---+ | Rate/Dose Verify | 10/10/19 | 5 mg/hr | 25 mL/hr | | | | 19 11:00 | | | | | | AM PDT | | | | + + +---------+ +---+ +---+---+ | | | +---+---+ + +-------+ +-------+---+---+ | pantoprazole (PROTONIX) tablet | Given | 10/11/19 | 20 mg | | | | 20 mg 20 mg, oral, DAILY, First | | 19 8:28 | | | | | dose on 10/07/18 at 0915, Until | | AM PDT | | | | | Discontinued | | | | | | + +-------+ +-------+---+---+ +-------+ +-------+---+---+ | Given | 10/10/19 | 20 mg | | | | | 19 5:52 | | | | | | AM PDT | | | | +-------+ +-------+---+---+ | Given | 10/09/19 | 20 mg | | | | | 19 8:41 | | | | | | AM PDT | | | | +-------+ +-------+---+---+ +---+---+ | | | +---+---+ + +-------+ + +---+---+ | senna-docusate (SENOKOT S) | Given | 10/08/19 | 1 tablet | | | | 8.6-50 mg 1 tablet 1 tablet, | | 19 8:43 | | | | | oral, TWICE DAILY, First dose on | | PM PDT | | | | | 10/07/18 at 0900, Until | | | | | | | Discontinued | | | | | | + +-------+ + +---+---+ +---+---+ | | | +---+---+ + + + + + +---+ | sodium chloride 0.9 % (NS) IV | Rate/Dos | 10/10/19 | 75 mL/hr | 75 mL/hr | | | infusion 75 mL/hr, intravenous, | e Verify | 19 10:00 | | | | | CONTINUOUS, Starting 10/07/18 | | PM PDT | | | | | at 1415, Until Tue10/09/18 at 2237 | | | | | | + + + + + +---+ + + + + +---+ | Rate/Dose Verify | 10/10/19 | 75 mL/hr | 75 mL/hr | | | | 19 9:00 | | | | | | PM PDT | | | | + + + + +---+ | Rate/Dose Verify | 10/10/19 | 75 mL/hr | 75 mL/hr | | | | 19 8:00 | | | | | | PM PDT | | | | + + + + +---+ +---+---+ | | | +---+---+ + +-------+ +------+---+---+ | sulfur hexafluoride | Given | 10/08/19 | 5 mL | | | | microspheres (LUMASON) IV 1-2 mL | | 19 4:20 | | | | | 1-2 mL, intravenous, ONCE, 1 | | PM PDT | | | | | dose, 10/07/18 at 1730 | | | | | | + +-------+ +------+---+---+ +---+---+ | | | +---+---+ documented in this encounter
--- OUTSIDE RECORDS SUMMARY | ~2020-02-21 | XMS | Encounter Summary ---
Demographics + + + | Address | [address] | | | [place] [address] | + + + | Home Phone | | + + + | Preferred Language | Unknown | + + + | Marital Status | | + + + | Methodist Affiliation | NRP | + + + | Race | White | + + + | Ethnic Group | Not or | + + + Author + + + | Author | [facility] | + + + | Organization | [facility] | + + + | Address | Unknown | + + + | Phone | Unavailable | + + + Support + + + + + | Name | Relationship | Address | Phone | + + + + + | Alanna Merino | DAT | [address] | | | | | [address] | | | | | [address] | | + + + + + Care Team Providers + +------+ + | Care Sea Foam Kiss Maker Name | Role | Phone | + [...] | internal carotid | | | | [place], [place] | | artery | | | | [address] | | | | | | [phone] | | | +--------+------+ + + + [...] | + + + + + | [employer] | [address] | [place] [address] | | | SERVICES, CORE | PARK [...]
--- OUTSIDE RECORDS SUMMARY | ~2020-02-21 | XMS | Encounter Summary ---
Demographics + + + | Address | [address] | | | [place] [address] | + + + | Home Phone | | + + + | Preferred Language | Unknown | + + + | Marital Status | | + + + | Voodoo Affiliation | NRP | + + + | Race | White | + + + | Ethnic Group | Not or | + + + Author + + + | Author | [facility] | + + + | Organization | [facility] | + + + | Address | Unknown | + + + | Phone | Unavailable | + + + Support + + + + + | Name | Relationship | Address | Phone | + + + + + | Alanna Merino | DAT | [address] | | | | | [address] | | | | | [address] | | + + + + + Care Team Providers + +------+ + | Care Car Construction Superintendent Name | Role | Phone | + [...] | | | | | ischemic | [address] | | | | | | left MCA | [address] | | | | | | stroke | [address] | | | | | | Stenosis of | [place], [place] | | | | | | left | [address] | | | | | | internal | Phone: | | | | | | carotid | [phone] | | | | | | artery | Fax: | | | | | | Procedures | [phone] | | | | | | CONSULT [...] [place] | | | | | left [employer] | [address] | [address] | | | | | stroke (HCC) | [place] | Joel | | | | | Procedures | [place], [place] | [place], [place] | | | | | CONSULT TO | [address] | [address] | | | | | NEUROLOGY | Phone: | Phone: | | | | | | [phone] | [phone] | | | | | | Fax: | Fax: | | | | | | [phone] | [phone] | +--------+--------+ + + + + Encounter Details +--------+---------+ + + + | Date | Type | Department | Care Team | Description | +--------+---------+ + + + | 11/09/ | Office | [facility] | Deion Sommer, | History of ischemic | | 2019 | Visit | [facility] | [address] | left MCA stroke | | | | [facility] | [address] | (Primary Dx); | | | | [address] | [place], [place] | Stenosis of left | | | | [facility] [facility] | [address] | internal carotid | | | | [facility], | [phone] | artery | | | | floor [place], [place] | | | | | | [address] | | | | | | [phone] | | | +--------+---------+ + + + [...] or concerns. Deion Sommer MD Vascular Neurology [facility] Department of Neurology [facility] and [place] [address] [place] [address] documented in this encounter Progress Notes Deion [...] a transfer on 10/06/2018 for a left MCA/[employer] te rritory stroke related to left carotid artery stenosis. Initially presented to the Emergency Department in [place], [place] after waking the AM of with right upper extremity weakness, dysarthria, and aphasia. [facility] on 10/05/2018 with progressive symptoms. CTA with severe left internal carotid artery stenosis just distal to the bifurcation and left variant [employer]. MRI demonstrate d left parietal/occipital ischemic strokes [...] Alert, oriented to person, November 07()2018, 330pm(130pm), [place], no neglect , no aphasia, following commands [...] level mild right ICA stenosis variant left [employer] MRI BRAIN left MCA, [employer], and left hemispheric watershed ischemic strokes OTHER [...] for comparison. Assessment: Recurrent left MCA and [employer] ischemic strokes. Etiology LICA stenosis. Suspect stenosis [...] carotid duplex ultrasound to be completed in [place]. Return to driving would require formal visual field assessment and formal driving safety ev aluation by occupational therapy. Urology outpatient evaluation for hematuria surrounding hospitalization not completed and w ill be pursued via external referral in [place]. Plan: continue aspirin 325mg for LIFE continue atorvastatin 40mg daily lipid panel today secondary stroke prevention goals for primary care LDL < 70, HbA1c < 7.0, SBP < 140 external referral for carotid duplex US - [place] external referral for Urology evaluation - [place] NO DRIVING - requires formal VF evaluation + OT driving evaluation tobacco cessation with primary care follow-up visit in 6 months I spent 33 minutes with the patient. Greater than 50% of the time was spent counseling the patient regarding left MCA/[employer] ischemic stroke and left internal carotid stenosis. [...] | + + + + + | [facility] | [id number] | [place] [address] | | | SERVICES, CORE | OSCAR [...]
--- OUTSIDE RECORDS SUMMARY | ~2020-02-21 | XMS | Encounter Summary ---
Demographics + + + | Address | [address] | | | [place] [address] | + + + | Home Phone [...] + | Author | [facility] | | | and [place] | + + + | Organization | [facility] | | | [...] [place], [place] | | | | | [address] | | + + + + + | Isabella "Tiki" | ECON | [address] | | | [place] | | [place], [place] | | | | | [address] | | + + + + + Care Team Providers + +------+ + | Care Seating And Mobility Technologist Name | Role | Phone | + +------+ + | Alen Bolanos MD | PCP | | + +------+ + Reason for Visit +--------+--------+ + | Reason | Onset | Comments | | | Date | | +--------+--------+ + | Other | 10/13/ | | | | 2019 | | +--------+--------+ + Encounter Details +--------+ + + + + | Date | Type | Department | Care Team | Description | +--------+ + + + + | 10/13/ | Telephone | [facility] | Ashu Singh, DO | Other | | 2019 | | MED CTR MEDICAL | [address] [facility] | | | | | ONCOLOGY CLIN[facility] [address] | [place] | | | | | [address] | [id number] | | | | | [place] [address] | | | | | | [phone] | | | +--------+ + + + [...] Telephone Encounter - Danielle Robb RN - 10/13/2018 11:12 AM PDTReturn call to Alanna, patient's . She is wanting Dr. Singh to know that he had a stent placement in the artery in his neck. She has been instructed in would care by the staff at [facility], but healing is sl ow due to the blood thinners he is on. She is wanting to reschedule his appointment with beckford as he missed his appointment due to being at [facility]. I gave her Dr. Ly's phone number so she could call directly to reschedule. elephone Encounter - Cody Sharif - 10/13/2018 10:09 AM PDT Alanna called, per previous note pt was sent to [facility] a bit ago, they put a stint in pt on M onday and he is home now, but they would like his neck. The wound spec looked at and they a re keeping it clean. They also need the appointment with the expanding machine operator rescheduled, and she thinks that he could handle some travel by the end of next week or early the week after. [phone] documented i n this encounter Plan of Treatment [...] [place] | | | | | | [id number] | | | | | | | | +--------+ + + + + documented as of this encounter Visit Diagnoses Not on filedocumented in this encounter
--- OUTSIDE RECORDS SUMMARY | ~2020-02-21 | XMS | Encounter Summary ---
Demographics + + + | Address | [address] | | | [place] [address] | + + + | Home Phone | | + + + | Preferred Language | Unknown | + + + | Marital Status | | + + + | Zoroastrianism Affiliation | NRP | + + + | Race | White | + + + | Ethnic Group | Not or | + + + Author + + + | Author | [facility] | + + + | Organization | [facility] | + + + | Address | Unknown | + + + | Phone | Unavailable | + + + Support + + + + + | Name | Relationship | Address | Phone | + + + + + | Alanna Merino | DAT | [address] | | | | | [address] | | | | | [address] | | + + + + + Care Team Providers + +------+ + | Care Yarn Skeins Examiner Name | Role | Phone | + [...] + + | 11/20/ | Refill | [facility] | Mariposa Avila, | Refill Request | | 2019 | | [facility] | RN [address] | | | | | [facility] | [address] | | | | | [address] | [place], [place] | | | | | Giselle [facility] | [address] | | | | | [facility], | | | | | | [place], [place] | | | | | | [address] | | | | | | [phone] | | | +--------+--------+ + + + [...]
--- OUTSIDE RECORDS SUMMARY | ~2020-02-21 | XMS | Encounter Summary ---
Demographics + + + | Address | [address] | | | [place] [address] | + + + | Home Phone | | + + + | Preferred Language | Unknown | + + + | Marital Status | | + + + | Hinduism Affiliation | NRP | + + + [...] [place] | | | | | [address] | | + + + + + Care Team Providers + +------+ + | Care Form Tamper Name | Role | Phone | + +------+ + | Washington Mason MD | PCP | | + +------+ + Encounter Details +--------+ + + + + | Date | Type | Department | Care Team | Description | +--------+ + + + + | 11/07/ | Results | Dermatology | Ward Jimenez, | | | 2008 | Only | [facility] [address] | [address] | | | | | [address] [place] | [facility] [place] | | | | | for Health and | [address] | | | | | [facility] 1, | [phone] | | | | | 16th Floor | | | | | | [place], [place] | | | | | | [address] | | | | | | [phone] | | | +--------+ + + + [...] | | | | | MNT) | [id number] OF | | | | | | SPECIMEN:B FIRST TISSUE | | | | | | LEVEL IV [id number] | | | | | | OF SPECIMEN:C FIRST | | | | | | TISSUE LEVEL IV | | | | | | [id number] | | | | | | DESCRIPTION:A: [...] [facility] | Mail[address] | [place] [address] | | | DERMATOPATHOLOGY | [address] | | | + + + + + documented in this encounter Visit Diagnoses Not on filedocumented in this encounter"
--- OUTSIDE RECORDS SUMMARY | ~2020-02-21 | XMS | Encounter Summary ---
Demographics + + + | Address | [address] | | | [place] [address] | + + + | Home Phone [...] [place], [place] | | | | | [address] | | + + + + + | Isabella "Tiki" | ECON | [address] | | | [place] | | [place], [place] | | | | | [address] | | + + + + + Care Team Providers + +------+ + | Care Actuarial Analyst Name | Role | Phone | + [...] + + | 09/19/ | Telephone | [facility] | Carly Jaime | Other | | 2019 | | MED CTR RAD[facility] | MD Paulette [address] | | | | | ONCOLOGY CLINIC [address] | [place], [place] | | | | | [address] [facility] | [address] | | | | | [place] [address] | | | | | | [phone] | | | +--------+ + + + [...] on how her is doing (patient is [employer] and has some communi cation issues) she [...] [place] | | | | | | [address] | | | | | | | | +--------+ + + + + documented as of this encounter Visit Diagnoses Not on filedocumented in this encounter
--- OUTSIDE RECORDS SUMMARY | ~2020-02-21 | XMS | Encounter Summary ---
Demographics + + + | Address | [address] | | | [place] [address] | + + + | Home Phone [...] [place], [place] | | | | | [address] | | + + + + + | Isabella "Tiki" | ECON | [address] | | | [place] | | [place], [place] | | | | | [address] | | + + + + + Care Team Providers + +------+ + | Care Elementary Special Education Teacher Name | Role | Phone | [...] | | ONCOLOGY CLINIC [address] | [place], [place] | | | | | [address] | [address] | | | | | [place] [address] | | | | | | [phone] | | | +--------+ + + + [...] conclusion of therapy was 6/10 managed by [place] 10/325 one to 2 tablets every 6 [...] DO Radiation Oncologist Department of Radiation Oncology [facility] This note was transcribed using [employer] speech recognition software. As a result, there [...] [place] | | | | | | [address] | | | | | | | | +--------+ + + + + documented as of this encounter Visit Diagnoses Not on filedocumented in this encounter
--- OUTSIDE RECORDS SUMMARY | ~2020-02-21 | XMS | Encounter Summary ---
Demographics + + + | Address | [address] | | | [place] [address] | + + + | Home Phone | | + + + | Preferred Language | Unknown | + + + | Marital Status | | + + + | Judaism Affiliation | NRP | + + + | Race | White | + + + | Ethnic Group | Not or | + + + Author + + + | Author | [facility] | + + + | Organization | [facility] | + + + | Address | Unknown | + + + | Phone | Unavailable | + + + Support + + + + + | Name | Relationship | Address | Phone | + + + + + | Alanna Merino | DAT | [address] | | | | | [address] | | | | | [address] | | + + + + + Care Team Providers + +------+ + | Care Exhibit Carpenter Name | Role | Phone | + [...] | | | | | | [facility] | | | | | | Health and Healing, | | | | | | [facility] | | | | | | Floor [place], [place] | | | | | | [address] | | | | | | [phone] | | | +--------+ + + + [...]
--- OUTSIDE RECORDS SUMMARY | ~2020-02-21 | XMS | Encounter Summary ---
Demographics + + + | Address | [address] | | | [place] [address] | + + + | Home Phone [...] + + + | Author | [facility] | | | and [place] | + + + | Organization | [facility] | | [...] [place], [place] | | | | | [address] | | + + + + + | Isabella "Tiki" | ECON | [address] | | | [place] | | [place], [place] | | | | | [address] | | + + + + + Care Team Providers + +------+ + | Care Head Rigger Name | Role | Phone | + [...] + + | 06/07/ | Hospital | [facility] | Carly Jaime | Basal cell carcinoma | | 2019 | Encounter | MED CTR RADIATION | MD Paulette [address] | (BCC) of skin of | | | | ONCOLOGY CLINIC [address] | [place], [place] | neck (Primary Dx) | | | | [address] [facility] | [address] | | | | | [place] [address] | | | | | | [phone] | | | +--------+ + + + [...] [place] | | | | | | [address] | | | | | | | | +--------+ + + + + documented as of this encounter Visit Diagnoses + + | Diagnosis | + + | Basal cell carcinoma (BCC) of skin of neck - Primary | + + documented in this encounter
--- OUTSIDE RECORDS SUMMARY | ~2020-02-21 | XMS | Encounter Summary ---
Demographics + + + | Address | [address] | | | [place] [address] | + + + | Home Phone | | + + + | Preferred Language | Unknown | + + + | Marital Status | | + + + | Lutheran Affiliation | NRP | + + + | Race | White | + + + | Ethnic Group | Not or | + + + Author + + + | Author | [facility] | + + + | Organization | [facility] | + + + | Address | Unknown | + + + | Phone | Unavailable | + + + Support + + + + + | Name | Relationship | Address | Phone | + + + + + | Alanna Jorge | DAT | [address] | | | | | [address] | | | | | [address] | | + + + + + Care Team Providers + +------+ + | Care Fur Sewer Name | Role | Phone | + [...] Zelaya | | | | | left FLIGHT CREW SCHEDULER | Nathalie Cahney | Shiv Desai | | | | | stroke (HCC) | Oscar Maldonado | Joel | | | | | Procedures | [place], [place] | [place], [place] | | | | | CONSULT TO | [address] | [address] | | | | | NEUROLOGY | Phone: | Phone: | | | | | | [phone] | [phone] | | | | | | Fax: | Fax: | | | | | | [phone] | [phone] | +--------+--------+ + + + + Speech [...] | | | ischemic | [address] | [facility] | | | | | left FLIGHT CREW SCHEDULER | Nathalie Chaney | for Health | | | | | stroke (HCC) | Oscar Maldonado | and Healing, | | | | | Procedures | [place], [place] | [address], | | | | | SPEECH | [address] | 1st Floor | | | | | THERAPY | Phone: | [place], [place] | | | | | REFERRAL | [phone] | [address] | | | | | | Fax: | Phone: | | | | | | [phone] | [phone] | | | | | | | Fax: | | | | | | | [phone] | +--------+--------+ + + + + Occupational [...] | | ischemic | [address] | [facility] | | | | | left FLIGHT CREW SCHEDULER | Nathalie Chaney | for Health | | | | | stroke (HCC) | Oscar Maldonado | and Healing, | | | | | Procedures | [facility] [place] | [address], | | | | | | [address] | 1st Floor | | | | | OCCUPATIONAL | Phone: | [place], [place] | | | | | THERAPY | [phone] | [address] | | | | | REFERRAL | Fax: | Phone: | | | | | | [phone] | [phone] | | | | | | | Fax: | | | | | | | [phone] | +--------+--------+ + + + + Physical [...] | ischemic | [address] | | | | | left FLIGHT CREW SCHEDULER | Nathalie Chaney | for Health | | | | | stroke (HCC) | [address] | and Healing, | | | | | Procedures | [place], [place] | [address], | | | | | PHYSICAL | [address] | 1st Floor | | | | | THERAPY | Phone: | [place], [place] | | | | | REFERRAL | [phone] | [address] | | | | | | Fax: | Phone: | | | | | | [phone] | [phone] | | | | | | | Fax: | | | | | | | [phone] | +--------+--------+ + + + + Reason [...] | | | 10/10/ | | [facility] [place], | [place], [place] | | | 2018 | | [place] [address] | [address] | | | | | [phone] | [phone] | | | | | | | [...] distal to the bifurcation, L feta l FLIGHT CREW SCHEDULER. MRI demonstrating L parietooccipital ischemia/watershed infarct. He was started on heparin gtt and transferred for consideration of carotid stent vs CEA. Brief Hospital Course: # L MCA/FLIGHT CREW SCHEDULER watershed infarct # L ICA stenosis s/p stent 10/09 # L FLIGHT CREW SCHEDULER The etiology of patient's stroke was from [...] for Ischemic Stroke For ischemic stroke: Call [phone] to schedule your follow-up appointment in 1 month Outstanding labs/studies: Lab Orders - In Process (Through next 24h) None Follow Up Tests: none Discharging Attending: Ryan Douglas MD Physician Signature: Lisseth Rivas MD Neurology PGY-2 Stroke pager [phone] Associated attestation - Ryan Douglas MD - 10/10/2018 2:51 PM PDT Stroke Service Note I agree with the history, exam and care plan as per the manager of housekeeping's note and have exami mily the patient myself. Patient doing well from stroke and ABHAY standpoint. Should plan to follow up in 1 month. Can consider [facility] Telehealth clinic for stroke follow up. 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 Ryan Douglas M.D. [facility] Vascular Neurology documented in this encounter Discharge [...] Stroke Association. Visit http://www.st roke.org/ or call 9-442-YZKLCKD ( ). ? The Citizen Of [place] Stroke Association Family "Warmline" 3-066-5-STROKE ( ). ? Contact your local stroke [...] CRISIS LINES: -24/01 National Suicide Prevention Lifeline 8-809-732-TALK (0627) Hearing and Speech Impaired 2-314-016-4TTY (0370) http://www.suicidepreventionlifeline.org/ -24/01 Mental Health Treatment Referral Line 4-740-425-HELP (6583) http://www.samhsa.gov/treatment/natHelpFAQs.aspx -[facility] Crisis [facility] , press 1 Http://www.Blaze healthcrisisline.net/ Information for local mental health crisis line [...] your senior or day center, you r cheondoism community, or any other community in which [...] service which conn ects the people of [place] and [facility] with the community resources they need. 2 [employer] Home Instead (280.334.4415) This is a DisabledPark which can provide in home assistance at a cost to the family. [place] Project Josephine OPI is a program which helps seniors 60 and over continue to live independently and safely living in their own home. OPI provides individualized personal care, housekeeping, and case management support. http://www.[place].gov/dhs/spwpd/pages/ltc/inhome.aspx#opi [place] Independent Living Resources: [place] Statement Of Independent Living Resources: Promote the philosophy of Independent L iving by creating opportunities, encouraging choices, advancing equal access, and furthering the level of independence for all people with disabilities. 322.218.6792 [facility] (808.903.1416) Services are targeted to people who are not Medicaid eligible. The [facility] has information about in-home care, [...] 60 and older. Seniors must live in [place] in [place] or [facility] in [place] to be eligible to receive meal s. Call to request meals at [phone] in [facility] and [facility] and toll free in [facility] at . Most of the [facility] in [place] have a Meals on Wheels Program, and information on local [facility] se-mj-cvvife services can be obtained through local Area Agency on Aging Offices. [place] Vocational Rehabilitation Service (OVRS) ( ) http://www.[place].gov/DHS /vr/Pages/index.aspx [place] Area Agency on Aging http://www.[place].gov/dhs/spwpd/pages/offices.aspx There are 17 Area Agencies on Aging across [place] that administer and support community-bas ed care services. AAAs advocate for older adults living in their area, develop community-based long-term care services to meet the needs of those adults and administer funds to implement services. Most services coordinated by AAAs are provided through community service providers at the local level. This section contains program information designed for staff members of [place]'s AAAs . Aging and Disability Resource Connection of [place] https://adrcoforegon.org/dtjxxc-nqreian-khy-independent-living.php [facility] of [place] is a resource directory for [place] families, caregivers and consumers seekin g information about long-term supports and services. Here you will find quick and easy acces s to resources in your community. If you cannot find the information you are looking for or wish to talk to someone in person, please call us toll free at 9-299-KOW-[facility] ([phone]) [place] Caregiver Support Line http://www.caregiver.va.gov/ Toll free : Also check with your private health insurance organization, as respite care may also be inc luded in the coverage. Support Groups for Families Living with Aphasia Individuals and families affected by aphasia face unique challenges. Support specifically d esigned for these people is limited. Three groups have formed in the [place], [place] area t hat provide both the individual experiencing aphasia and family members the opportunity to d evelop a sense of community with others impacted by aphasia. These groups are organized and run by participants. Faculty and students from [facility] s Department of S peech and Hearing [...] everyone. There are several groups in the [facility] for individuals and families living wit h aphasia: [facility] Continuous Improvement Group When: Each Tuesday 11: 12:00 Where: [facility] [address] [place] [address]. Contact: Alfonso Garcia Jennyfer [email or web address] [facility] Speak EZ group When: Odd numbered Saturdays (i.e. July 08) 10:00 12:00 Where: [facility] [address] Contact: Lenin Wiggins [phone] [facility] Aphasia Group When: & Tuesday of each month 10:00 12:00 Where: [facility] Room varies watch for directional signs Contact: Samreen Wells [phone] [email or web address] The Backstrokes A community music group for stroke survivors. Stroke survivors, spouses, partners, and care givers are invited to join for an hour of playing instruments and singing. Every Tuesday, 11:30-12:30 at the [facility], [address] [place] [address]. Info rmation contact: Carmen Moore, , Brain Injury [place] of [place] http://www.biaoregon.org/ National Stroke Association http://www.stroke.org/ .STROKES (787.4251) National Center on Caregiving/ Family Caregiver [place] www.caregiver.org Established in 2000 as a program of Family Caregiver [place], the National Center on Careg iving (NCC) works to advance the development of high-quality, cost-effective policies and pr ograms for caregivers in every state in the country. Uniting research, public policy and ser vices, the [facility] serves as a central source of information [...] personal medical concerns. County Crisis Line Information: [facility] Mental Health Access Crisis Number (days) or (after hours) [facility] Mental Health Program Access or Crisis Number [facility] Center Access Crisis Number [facility] Healthcare Access Crisis Number [facility] Mental Health, [facility]. Access Crisis Number or (after hours) [facility] Mental Health Program Access Crisis Number (24 hours) [facility] Mental Health Program Access Crisis Number (after hours) [facility] Mental Health Program Access Crisis Number [facility] Mental Health Services Access Crisis Number (24 hours) or [facility] Health and Tailor Women'S Garment Alteration Dept. Access Crisis Number [facility] Living Branch Office Access Crisis Number [address] [facility] Access Crisis Number or 911 [facility] Counseling & Guidance Service Access Crisis Number [facility] Access Crisis Number [facility] and Human Services Access Crisis Number [facility] Mental Health Program Access Crisis Number (24 hours) [facility] Mental Health Programs Access Crisis Number (24 hours) [facility] Access Crisis Number [facility] and Human Services Access Crisis Number [facility] & Human Services Access Crisis Number (24 hours) [facility] Mental Health Program Access Crisis Number (days) (after hours) [facility] Mental Health Access Crisis Number (days) (after hours) [facility] Behavioral Health Access Crisis Number [facility] Access Crisis Number [facility] Behavioral Health Access Crisis Number 911 [facility] Human Services Access Crisis Number Toll-free at [facility] Mental Health Access Crisis Number (days) (after hours) [facility] for Living Access Crisis Number [facility] Access Crisis Number or [facility] Behavioral Health Access Crisis Number (24 hours) [facility] Scuba[employer]ribe Access Crisis Number [facility] Access Crisis Number [facility] for Living Access Crisis Number (after hours) [facility] Mental Health Access Crisis Number [facility] Behavioral Health Access Crisis Number [facility] [place] [facility] Mental Health Program Access [...] Care Unit Attending Progress Note Attending Pager #[phone] Hospital admission dx: stroke Days in ICU [...] stenosis just distal to the bifurcation, L FLIGHT CREW SCHEDULER present. MRI demonstrating L parietoo ccipital ischemia/watershed [...] Provider Role Specialty Ipt Critical Care Nsicu #09516 Treatment Team Ipt Mt2 50354 Treatment Team Ipt Neuro Stroke #59638 Treatment Team Neurology Code Status Code Status [...] ons/additions as noted. Date of Service: 10/09/2018 [facility] DEPARTMENT: ANE ICU NEURO Place of Service:- Inpatient CSN: [id number] Suggested Modifier: GC - Resident Involved Suggested CPT: TO DRY WALL FINISHER Author:ELIANA GRANADOS MD [address] [id number] signed by Eliana Granados MD at 10/09/2018 6:42 PM Deion Sawant MD - 10/09/2018 1:41 PM PDT [facility] INTER[facility]AL [facility]IOLOGY Division of the [facility] Attending Physician: Misael Note Date: [...] assessment, and care plan outlined in the manager of housekeeping's n ote and have personally examined the [...] stenosis just distal to the bifurcation, L FLIGHT CREW SCHEDULER. MRI demonstrating L pa rietooccipital ischemia/watershed infarct. [...] level mild right ICA stenosis variant left FLIGHT CREW SCHEDULER MRI BRAIN left MCA, FLIGHT CREW SCHEDULER, and left hemispheric watershed ischemic strokes DIAGNOSTIC [...] exams available for comparison. Assessment: Left MCA, FLIGHT CREW SCHEDULER, and left hemispheric watershed strokes on 10/04/2018. [...] 1 month atorvastatin 40mg daily telemetry monitoring COLORED LEATHER SETTER /PT/OT Social Work "stroke protocol" MOCA eval today Ryan Douglas M.D. Heel [facility] Department of Neurology [facility] Interventional Instittue Lisseth Ferguson MD - [...] with severe L ICA stenosis and L FLIGHT CREW SCHEDULER present. MRI demon strating L parietooccipital ischemia/watershed [...] Telemetry: NSR Swallow: pass Antithrombotic/anticoagulant: ASA 81 SIGNALS ANALYST PT/OT/COLORED LEATHER SETTER: home with assist Assessment and Plan: 63 yo man with symptomatic L ICA stenosis with FLIGHT CREW SCHEDULER transferred for consideration of C EA versus stent. No tPA due to time. Most likely atherosclerotic in etiology. Exam with impr ovement in RUE drift otherwise stable. Given patient has L neck wound and recent radiation therapy to that region, radiation necro sis on differential, however, CT neck 10/06 reviewed with radiology who had low suspicion of i nfiltrative process. # L MCA/FLIGHT CREW SCHEDULER watershed infarct # L ICA stenosis s/p stent 10/09 # L FLIGHT CREW SCHEDULER For L ICA stenosis, NSGY consulted and [...] Hematuria Started , 10/06. Has been intermittent. Merritt-dark red blood observed, no clots. Impro ving [...] Rivas MD Neurology Resident, PGY 2 Pgr [id number] eber, Deion Coates MD - 10/08/2018 3:36 PM PDT [facility]AL NEURORADIOLOGY Division of the [facility] Attending Physician: Deion Sommer MD [...] assessment, and care plan outlined in the manager of housekeeping's n ote and have personally examined the [...] stenosis just distal to the bifurcation, L FLIGHT CREW SCHEDULER. MRI demonstrating L pa rietooccipital ischemia/watershed infarct. [...] level mild right ICA stenosis variant left FLIGHT CREW SCHEDULER MRI BRAIN left MCA, FLIGHT CREW SCHEDULER, and left hemispheric watershed ischemic strokes DIAGNOSTIC [...] exams available for comparison. Assessment: Left MCA, FLIGHT CREW SCHEDULER, and left hemispheric watershed strokes on 10/04/2018. [...] with NS IVF at 75cc/hr telemetry monitoring COLORED LEATHER SETTER /PT/OT Social Work "stroke protocol" I spent [...] stenosis just distal to the bifurcation, L FLIGHT CREW SCHEDULER present. MRI demonstr ating L parietooccipital ischemia/watershed [...] man with symptomatic L ICA stenosis with FLIGHT CREW SCHEDULER transferred for consideration of C EA versus [...] #Painless Hematuria Started . Has been intermittent. Merritt-dark red blood observed, no clots. UA with [...] YEUNG MD Neurology Resident, PGY 3 Pgr [id number] eber, Deion Coates MD - 10/08/2018 11:50 AM PDT [facility] INTERVENT[facility]AL NE[facility]IOLOGY Division of the [facility] Note Date: 10/08/2018 Admission Date: 10/06/2018 GUILHERME JORGE, Hospital Day #2 BRIEF PROCEDURE NOTE Preprocedure Consent: reviewed prior to procedure Patient identity confirmed per policy Team Pause: Immediatly prior to the procedure a pause per protocol was called. A pause verifies correct patient, procedure, equipment, child support agent and site/side marked as required if indicated . Attending(s): Ryan Douglas MD Latent Print Examiner(s): Deion Sommer MD Preoperative Diagnosis: left MCA [...] stenosis just distal to the bifurcation, L FLIGHT CREW SCHEDULER present. 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 Facial Paresis (Show teeth, raise eyebrows [...] man with symptomatic L ICA stenosis with FLIGHT CREW SCHEDULER transferred for consideration of C EA versus [...] f/u Multiple records requests placed: [facility] ([place], [place]), oncology records from [place], [place]. [facility] fax records to [facility]. #L neck wound s/p radiation for basal cell carcinoma Received "20x" radiation, most recently 10/02. Requested onc records. -Wound care consulted - will need careful cleaning of wound -f/u onc records #Painless Hematuria Started . Has been intermittent. Merritt-dark red blood observed, no clots. -UA collected [...] YEUNG MD Neurology Resident, PGY 3 Pgr [id number] eber, Deion Coates MD - 10/07/2018 7:51 AM PDT INPATIENT STROKE PROGRESS NOTE 10/07/18 HOSPITAL DAY: 1 I agree with the history, exam, assessment, and care plan outlined in the manager of housekeeping's n ote and have personally examined the [...] stenosis just distal to the bifurcation, L FLIGHT CREW SCHEDULER. MRI demonstrating L pa rietooccipital ischemia/watershed infarct. [...] level mild right ICA stenosis variant left FLIGHT CREW SCHEDULER MRI BRAIN left MCA, FLIGHT CREW SCHEDULER, and left hemispheric watershed ischemic strokes Assessment: Left MCA, FLIGHT CREW SCHEDULER, and left hemispheric watershed strokes on 10/04/2018. [...] midnight maintain hydration curbside Urology re hematuria COLORED LEATHER SETTER/PT/OT Social Work "stroke protocol" I spent 72 [...] | e | 10:11 AM | left FLIGHT CREW SCHEDULER stroke | procedure are in the | | | | PDT | (HCC) | results section. | + +--------+ + + + | ACT, POC | Routin | 10/09/2018 | Acute ischemic | Results for this | | | e | 9:54 AM | left FLIGHT CREW SCHEDULER stroke | procedure are in the | | | | PDT | (HCC) | results section. | + +--------+ + + + | CAPILLARY BLOOD | Routin | 10/09/2018 | Acute ischemic | Results for this | | GLUCOSE (NO CHG), | e | 5:46 AM | left FLIGHT CREW SCHEDULER stroke | procedure are in the | [...] | e | 10:14 PM | left FLIGHT CREW SCHEDULER stroke | procedure are in the | | POC | | PDT | (HCC) | results section. | + +--------+ + + + | CAPILLARY BLOOD | Routin | 10/08/2018 | Acute ischemic | Results for this | | GLUCOSE (NO CHG), | e | 5:06 PM | left FLIGHT CREW SCHEDULER stroke | procedure are in the | | POC | | PDT | (HCC) | results section. | + +--------+ + + + | CAPILLARY BLOOD | Routin | 10/08/2018 | Acute ischemic | Results for this | | GLUCOSE (NO CHG), | e | 1:09 PM | left FLIGHT CREW SCHEDULER stroke | procedure are in the | [...] | e | 10:04 AM | left FLIGHT CREW SCHEDULER stroke | procedure are in the | [...] | e | 10:36 PM | left FLIGHT CREW SCHEDULER stroke | procedure are in the | | POC | | PDT | ([facility]) | results section. | + +--------+ + [...] | e | 5:41 PM | left FLIGHT CREW SCHEDULER stroke | procedure are in the | | POC | | PDT | ([facility]) | results section. | + +--------+ + [...] | e | 1:35 PM | left FLIGHT CREW SCHEDULER stroke | procedure are in the | | POC | | PDT | ([facility]) | results section. | + +--------+ + + + | CAPILLARY BLOOD | Routin | 10/07/2018 | Acute ischemic | Results for this | | GLUCOSE (NO CHG), | e | 8:37 AM | left FLIGHT CREW SCHEDULER stroke | procedure are in the | [...] | e | 12:47 AM | left FLIGHT CREW SCHEDULER stroke | procedure are in the | [...] [facility] | [address] | [place] [address] | | | SERVICES, CORE | PARK [...] | | | LABORATORY | | | BRITISH | | | SERVICES, | | | [...] | + + + + + | [facility] | [address] | [place] [address] | | | [facility] [place] | [address] | | | + + + + + CAROTID STENT PLACEMENT (10/09/2018 10:53 AM PDT) + + + | Narrative | Performed At | + + + | Deion Sommer MD 10/09/2018 12:11 PM [facility] | | [facility] INTERVENTIONAL NEURORADIOLOGY Division of the | | | [facility] Note Date: 10/09/2018 Admission Date: [...] | | | Attending(s): Rubén Mulligan MD Latent Print Examiner(s): Deion Sommer MD | | | Preoperative [...] | | PRIMARY SURGEON(S): Rubén Mulligan M.D. AUDIO VISUAL AIDE SURGEONS(S): | | | Deion Sommer M.D. ANESTHESIA: Moderate sedation was administered | | | by a Neuro manager spanish under direct attending | | | physician [...] 5F Anders catheter; | | | 6F [employer] Fuantonio guide catheter; 4-7 mm EmboShield Nav6 [...] 10/02 who suffered a left MCA and FLIGHT CREW SCHEDULER | | | stroke on 10/04/2018. LICA stenosis with FLIGHT CREW SCHEDULER identified on | | | imaging. Initiated [...] | | | performed for the 6F SANDOWbuki catheter over a Storq wire | | [...] | stenting though a small degree of yxt-mgly-pxvyipzz stenosis persists. | | | Control angiography [...] signature: Rubén Sebastian | | | MD Isaak 10/16/2018 11:08 AM Preliminary: Deion Sommer | | | 10/09/2018 1:27 PM Dictation initiated: Deion Sommer 10/09/2018 | | | 11:45 AM | | + + + + + | Procedure Note | + + | Service Account, [employer] Res In Interface - 10/16/2018 11:09 AM PDT NEUROANGIOGRAM | | AND CAROTID STENT REPORT DATE OF PROCEDURE: 10/09/2018 DIAGNOSIS: Left middle cerebral | | artery stroke + left internal carotid artery stenosis OPERATION: Left carotid stent | | PRIMARY SURGEON(S): Rubén Mulligan M.D. AUDIO VISUAL AIDE SURGEONS(S):Deion Sommer M.D. | | ANESTHESIA:Moderate sedation was administered by a Neuro manager spanish | | under direct attending physician supervision.Total supervised sedation time: 100 | | minutesIV midazolam: 2 mgIV fentanyl: 100 mcg FLUOROSCOPY TIME: 19.6 minutes | | COMPLICATIONS:none apparent MATERIALS EMPLOYED: Ultrasound; 19g needle; Check-Robbie | | Hemostasis Device; 035 145 cm baby J wire; 035 300 cm Storq wire; 035 180 cm Glidewire; | | 5F Anders catheter; 6F [employer] FubuSoraa guide catheter; 4-7 mm EmboShield Nav6 distal [...] 10/02 who suffered a left MCA and FLIGHT CREW SCHEDULER stroke | | on 10/04/2018. LICA stenosis with FLIGHT CREW SCHEDULER identified on imaging. Initiated on a | [...] was performed for the 6F | | [employer] Fubuki catheter over a Storq wire maintained in the external carotid artery under | | fluoroscopy. The AsaHexagram 49 Fubuki catheter was positioned in the mid [...] though a small | | degree of cof-lwam-ivwawfht stenosis persists. Control angiography of the intracranial [...] KNAPP | [address] | [place], [place] | | | COTY MOMIN OF [place] | [facility] | [address] | | | TESTS | | | [...] RA | [address] | [place], [place] | | | COTY MOMIN OF [place] | [facility] | [address] | | | TESTS | | | | + + + + + CAPILLARY BLOOD GLUCOSE (NO CHG), POC (10/09/2018 5:46 AM PDT) + +-------+ + + + | Component | Value | Ref Range | Performed | Pathologist | | | | | At | Signature | + +-------+ + + + | BLOOD | 78 | 60 - 99 mg/dL | [facility] - | | | GLUCOSE, | | [...] KNAPP | [address] | [place], [place] | | | COTY MOMIN OF [facility] | [address] | [address] | | | TESTS | | | [...] [facility] | [address] | [place] [address] | | | SERVICES, CORE | PARK [...] | | | LABORATORY | | | BRITISH | | | SERVICES, | | | [...] | + + + + + | [facility] | [address] | [place] [address] | | | [facility] [place] [place] | [address] | | | + [...] MARQUAM | [address] | [place], [place] | | | COTY MOMIN OF CARE | [address] | [address] | | | TESTS | | | [...] KNAPP | [address] | [place], [place] | | | COTY MOMIN OF CARE | [address] | [address] | | | TESTS | | | [...] MARQUAM | [address] | [place], [place] | | | COTY MOMIN OF CARE | [address] | [address] | | | TESTS | | | [...] Douglas M.D. | RECOGNITION 2 | | AUDIO VISUAL AIDE SURGEONS(S): Deion Sommer M.D. ANESTHESIA: Moderate | | | sedation was administered by a Neuro manager spanish under | | | direct attending physician [...] artery | | | stenosis. Transferred to [facility] on a heparin infusion and aspirin 81 [...] PRIMARY SURGEON(S): Ryan Douglas M.D. | | AUDIO VISUAL AIDE SURGEONS(S):Deion Sommer M.D. ANESTHESIA:Moderate sedation was administered | | by a Neuro manager spanish under direct attending physician | | supervision.Total [...] carotid artery stenosis. Transferred to | | [facility] on a heparin infusion and aspirin 81 [...] KNAPP | [address] | [place], [place] | | | COTY MOMIN OF [place] | [facility] | [address] | | | TESTS | | | [...] | | | LABORATORY | | | BRITISH | | | SERVICES, | | | [...] | + + + + + | [facility] | [address] | [place] [address] | | | SERVICES, CORE | PARK [...] + + | [facility] | [address] | [place] [address] | | | SERVICES, CORE | PARK [...] | + + + + + | [employer] | [address] | [place] [address] | | | SERVICES, CORE | OSCAR [...] + + + | KRISTI KNAPP | [address] | [place], [place] | | | COTY MOMIN OF [facility] | [address] | [address] | | | TESTS | | | [...] | + + + + + | [facility] | [address] | [place] [address] | | | SERVICES, CORE | OSCAR [...] - [facility] | [address] | [place], [place] | | | [facility] POINT OF CARE | [address] | [address] | | | TESTS | | | [...] Performed At | + ----+ + | [facility] | [facility] | | [facility] [address] | CARDIOLOGY | | [place], [place] [address] Ph: | | | Pt Name: GUILHERME JORGE | | | Study Date/Time 10/07/2018 / 3:46:49 PMMRN: [id number] | | | Most recent prior:Acc #: [id number] | | | No. previous echos: 0DOB: 1955 63 years Heart Rate: | | | 64 bpmHeight: 69.0 in Blood Pressure: | | | 147/86 mm/HgWeight: 175.0 lb Gender: | | | MBSA: 1.95 m | | | Order ID: [id number] Study | | | Location: KSonographer: Rosalind [...] Cardiology Results - 10/07/2018 5:14 PM PDT [facility] | | [facility]ch[facility] Laboratory [address] [place] [address] | | [place], [place] [address] Pt Name: GUILHERME Genao | | LUISITO Study Date/Time 10/07/2018 / 3:46:49 PMMRN: [id number] Most | | recent prior:Acc #: [id number] No. previous echos: 0DOB: 1955 63 | | years Heart Rate: 64 bpmHeight: 69.0 in Blood Pressure: | | 147/86 mm/HgWeight: 175.0 lb Gender: MBSA: 1.95 m | | Order ID: [id number] Study Location: KSonographer: Rosalind Arndt | | [...] DEPT OF | [address] | [place], [place] | | | CARDIOLOGY | [address] | [address] | | + + + + + [...] | + + + + + | [facility] | [address] | [place] [address] | | | SERVICES, CORE | OSCAR [...] | + + + + + | [facility] | [address] | [place] [address] | | | SERVICES, CORE | OSCAR [...] | + + + + + | [facility] | [address] | [place] [address] | | | SERVICES, CORE | OSCAR [...] | [facility] | | | GRAVITY | [place] performed by | | LABORATORY | | [...] | + + + + + | [facility] | [address] | [place] [address] | | | SERVICES, CORE | OSCAR [...] [facility] | [address] | [place], [place] | | | [facility] POINT OF CARE | [facility] | [address] | | | TESTS | | | [...] KNAPP | [address] | [place] | | | COTY MOMIN OF [facility] | [facility] | [address] | | | TESTS | | | [...] | + + + + + | [facility] | [address] | [place] [address] | | | SERVICES, CORE | OSCAR [...] [facility] | [address] | [place] [address] | | | SERVICES, CORE | OSCAR [...] | + + + + + | [employer] | [address] | [place] [address] | | | SERVICES, CORE | PARK [...] | + + + + + | [facility] | [address] | [place] [address] | | | SERVICES, CORE | PARK [...] | + + + + + | [facility] | [address] | [place] [address] | | | SERVICES, CORE | PARK [...] | [facility] | | considered for monitoring termite exterminator glycemic control in patients with: | LABORATORY [...] [facility] | [address] | [place] [address] | | | SERVICES, SPECIAL | OSCAR [...] | + + + + + | [facility] | [address] | [place] [address] | | | SERVICES, CORE | PARK [...] | | | LABORATORY | | | BRITISH | | | SERVICES, | | | [...] | + + + + + | [facility] | [address] | [place] [address] | | | SERVICES, CORE | OSCAR [...] [facility] | [address] | [place], [place] | | | [facility] POINT OF CARE | [address] | [address] | | | TESTS | | | [...] | + + | Acute ischemic left FLIGHT CREW SCHEDULER stroke (HCC) Unspecified cerebral artery occlusion with [...] 19 1:08 | | | | | Lead 10/08/18 at 1300 | | PM PDT [...] PDT | | | | | dose, [facility] 10/09/18 at 1045 | | | [...]
--- OUTSIDE RECORDS SUMMARY | ~2020-02-21 | XMS | Encounter Summary ---
Demographics + + + | Address | [address] | | | [place] [address] | + + + | Home Phone | | + + + | Preferred Language | Unknown | + + + | Marital Status | | + + + | Amish Affiliation | NRP | + + + | Race | White | + + + | Ethnic Group | Not or | + + + Author + + + | Author | [facility] | + + + | Organization | [facility] | + + + | Address | Unknown | + + + | Phone | Unavailable | + + + Support + + + + + | Name | Relationship | Address | Phone | + + + + + | Alanna Merino | DAT | [address] | | | | | [address] | | | | | [address] | | + + + + + Care Team Providers + +------+ + | Care Sergeant Of Corrections Name | Role | Phone | + [...] as of this encounter Progress Notes Interface, Cinnamon Grinder In - 02/01/2006 1:02 AM PDT June [...]
--- OUTSIDE RECORDS SUMMARY | ~2020-02-21 | XMS | Encounter Summary ---
Demographics + + + | Address | [address] | | | [place] [address] | + + + | Home Phone | | + + + | Preferred Language | Unknown | + + + | Marital Status | | + + + | Sikhism Affiliation | Unknown | + + + | Race | White | + + + | Ethnic Group | Not or | + + + Author + + + | Author | [facility] | | | and [place] | + + + | Organization | [facility] | | [...] [place], [place] | | | | | [address] | | + + + + + | Isabella "Tiki" | ECON | [address] | | | [place] | | [place], [place] | | | | | [address] | | + + + + + Care Team Providers + +------+ + | Care Sample Patternmaker Name | Role | Phone | [...] + + | 10/06/ | Telephone | [facility] | Ashu Singh, DO | Other | | 2019 | | MED CTR MEDICAL | [address] [facility] | | | | | ONCOLOGY CLINIC [address] | [place] | | | | | [address] | [id number] | | | | | [place] [address] | | | | | | [phone] | | | +--------+ + + + [...] a small one today. He is @ [place] [facility] now pending transfer to [facility]. Patient is scheduled to see a derm on Tuesday, she doesn't know who it is but if there is an y way we can contact them and tell them he won't be coming the family would appreciate it. She said the doctor's @ [facility] think the RAD broke up a clot in his neck causing the stroke [id number] if you need to call her. documented [...] [place] | | | | | | [id number] | | | | | | | | +--------+ + + + + documented as of this encounter Visit Diagnoses Not on filedocumented in this encounter
--- OUTSIDE RECORDS SUMMARY | ~2020-02-21 | XMS | Encounter Summary ---
Demographics + + + | Address | [address] | | | [place] [address] | + + + | Home Phone | | + + + | Preferred Language | Unknown | + + + | Marital Status | | + + + | Buddhism Affiliation | NRP | + + + | Race | White | + + + | Ethnic Group | Not or | + + + Author + + + | Author | [facility] | + + + | Organization | [facility] | + + + | Address | Unknown | + + + | Phone | Unavailable | + + + Support + + + + + | Name | Relationship | Address | Phone | + + + + + | Alanna Merino | DAT | [address] | | | | | [address] | | | | | [address] | | + + + + + Care Team Providers + +------+ + | Care Orthotic Technician Name | Role | Phone | + +------+ + | No Pcp Per Patient | PCP | Unavailable | + +------+ + Reason for Visit + + + | Reason | Comments | + + + | Medication Questions | | + + + Encounter Details +--------+ + + + + | Date | Type | Department | Care Team | Description | +--------+ + + + + | 10/16/ | Telephone | [facility] | Deion Sommer, | Medication Questions | | 2019 | | Interventional | [address] | | | | | [facility] | [address] | | | | | [address] | [place], [place] | | | | | Giselle Maldonado [facility] | [address] | | | | | [facility], | [phone] | | | | | [place] [address] | | | | | | [phone] | | | +--------+ + + + [...]
--- OUTSIDE RECORDS SUMMARY | ~2020-02-21 | XMS | Encounter Summary ---
Demographics + + + | Address | [address] | | | [place] [address] | + + + | Home Phone [...] [place], [place] | | | | | [address] | | + + + + + | Isabella "Tiki" | ECON | [address] | | | [place] | | [place], [place] | | | | | [address] | | + + + + + Care Team Providers + +------+ + | Care Tube Builder Airplane Name | Role | Phone | + [...] + + | 08/08/ | Hospital | [facility] | Ahsu Singh DO | | | 2019 | Encounter | MED CTR [address] | [address] | | | | | [place], | [place] | | | | | [place] [address] | [id number] | | | | | [phone] | | | +--------+ + + + [...] [place] | | | | | | [address] | | | | | | | [...]
--- OUTSIDE RECORDS SUMMARY | ~2020-02-21 | XMS | Encounter Summary ---
Demographics + + + | Address | [address] | | | [place] [address] | + + + | Home Phone [...] [place], [place] | | | | | [address] | | + + + + + | Isabella "Tiki" | ECON | [address] | | | [place] | | [place], [place] | | | | | [address] | | + + + + + Care Team Providers + +------+ + | Care Candy Attendant Name | Role | Phone | + [...] | | | | carcinoma | [place] [address] | [place], [place] | | | | | (BCC) of | Phone: | [address] | | | | | skin of neck | [phone] | Phone: | | | | | | Fax: | [phone] | | | | | | [phone] | Fax: | | | | | | | [phone] | +--------+ + + + + + Encounter Details +--------+ + + + + | Date | Type | Department | Care Team | Description | +--------+ + + + + | 10/02/ | Hospital | [facility] | Ashu Singh DO | Recurrent basal cell | | 2019 | Encounter | MED CTR RADIATION | [address] | carcinoma (Primary | | | | ONCOLOGY CLINIC [address] | [place] | Dx); Basal cell | | | | [address] [place] | [id number] | carcinoma (BCC) of | | | | [facility] [place] [address] | | skin of neck | | | | [phone] | | | +--------+ + + + [...] 03/26/ | Appointment | Radiation Oncology | Ppaito Alvarez MD | | | 2019 | | | [address] | | | | | | [place] | | | | | | [address] | | | | | | | [...]
--- OUTSIDE RECORDS SUMMARY | ~2020-02-21 | XMS | Encounter Summary ---
Demographics + + + | Address | [address] | | | [place] [address] | + + + | Home Phone [...] [place], [place] | | | | | [address] | | + + + + + | Isabella "Tiki" | ECON | [address] | | | [place] | | [place], [place] | | | | | [address] | | + + + + + Care Team Providers + +------+ + | Care Heel Curver Name | Role | Phone | + [...] Basal cell | Carly M, | [address] [place] | | | | | carcinoma of | MD [address] | [place], | | | | | skin of | [address] | [place] [address] | | | | | scalp and | [place], | Phone: | | | | | neck | [place] [address] | [phone] | | | | | Recurrent | Phone: | Fax: | | | | | basal cell | [phone] | [phone] | | | | | carcinoma | Fax: | | | | | | Procedures | [phone] | | | | | | CT [...] | Recurrent | Carly M, | [address] | | | | | basal cell | MD [address] | [place], | | | | | carcinoma | [address] | [place] [address] | | | | | Procedures | [place], | Phone: | | | | | CT Treatment | [place] [address] | [phone] | | | | | Plan | Phone: | Fax: | | | | | Complex | [phone] | [phone] | | | | | | Fax: | | | | | | | [phone] | | +--------+--------+ + + + + [...] | | | | Procedures | [address] | [place] | | | | | [address] | [place], | [place], | | | | | | [place] | [place] [address] | | | | | | [address] | Phone: | | | | | | Phone: | [phone] | | | | | | [phone] | Fax: | | | | | | Fax: | [phone] | | | | | | [phone] | | +--------+--------+ + + + + Encounter Details +--------+ + + + + | Date | Type | Department | Care Team | Description | +--------+ + + + + | 05/04/ | Hospital | [facility] | Carly Jaime | Recurrent basal cell | | 2019 | Encounter | MED CTR RADIATION | MD Paulette [address] | carcinoma (Primary | | | | ONCOLOGY CLINIC [address] | [place] | Dx); Basal cell | | | | [address] [place] | [address] | carcinoma of skin of | | | | [place] [address] | | scalp and neck | | | | [phone] | | | +--------+ + + + [...] extensive sun exposure while working in the [employer] and was first diagnosed with a left neck basal cell carcinoma in 1997. 01/30/1998- biopsy done basal cell carcinoma, superficial type 05/01/2002- Biopsy done basal cell carcinoma, sclerosing type. Status post MOHS surgery @ [facility] 11/07/2008- Biopsy done basal cell carcinoma. Status post additional MOHS surgery @ [facility] 06/02/2018- Brain MRI following a witnessed seizure; no evidence of metastases. 07/12/2018- PET/CT scan; moderate uptake in the region of basal cell carcinoma left anterior neck, no evidence of metastatic disease. 07/19/18- Consult with Dr. Funk at [facility] in [facility]. 08/01/18- Consult with Dr. Singh 09/04/18-10/02/18- Radiation therapy here at [facility] 55 Gy in 20 fractions. Excellent response wi th resolution of ulcerated mass at anterior left low neck. 10/09/18-left carotid stenting w/neurointerventional radiology 04/05/19-Dominique Montague @ [facility] Dermatology Biopsies done- No recurrence in [...] Appetite without changes. Ear, Nose, Mouth, Throat: [place]. Denies odynophagia, dysphagia, or tinnitus. Cardiovascular: Denies [...] you ever had radiation treatment: yes Comments: [facility], left anterior neck earlier this [...] 10/09/2018 MOHS SURGERY 2001 & 2009 @ [facility] SKIN CANCER EXCISION TONSILLECTOMY VASECTOMY Family [...] very limited range of motion that is chronic disease epidemiologist bridget at this point. Dr. Montague has [...] in 20 fractions directed to the lateral night shift supervisor ior neck, abutting previous radiation treatment field. [...] M.D. Radiation Oncologist Department of Radiation Oncology [facility] Office: [phone] signed by Carly Jaime MD at 06/16/2019 [...] [place] | | | | | | [address] | | | | | | | [...] The | | | parapharyngeal, retropharyngeal, and collections assistant spaces are normal. | | | The [...]
--- OUTSIDE RECORDS SUMMARY | ~2020-02-21 | XMS | Encounter Summary ---
Demographics + + + | Address | [address] | | | [place] [address] | + + + | Home Phone [...] [place], [place] | | | | | [address] | | + + + + + | Isabella "Tiki" | ECON | [address] | | | [place] | | [place], [place] | | | | | [address] | | + + + + + Care Team Providers + +------+ + | Care Web Merchant Name | Role | Phone | + [...] | MED CTR RADIATION | [address] [facility] | | | | | ONCOLOGY CLINIC [address] | [place] | | | | | [address] | [address] | | | | | [place] [address] | | | | | | [phone] | | | +--------+--------+ + + + [...] [place] | | | | | | [address] | | | | | | | [...]
--- OUTSIDE RECORDS SUMMARY | ~2020-02-21 | XMS | Encounter Summary ---
Demographics + + + | Address | [address] | | | [place] [address] | + + + | Home Phone [...] [place], [place] | | | | | [address] | | + + + + + | Isabella "Tiki" | ECON | [address] | | | [place] | | [place], [place] | | | | | [address] | | + + + + + Care Team Providers + +------+ + | Care Manager Wastewater Name | Role | Phone | + [...] + + | 08/03/ | Telephone | [facility] | Ashu Singh, DO | Other | | 2018 | | MED CTR MEDICAL | [address] [facility] | | | | | ONCOLOGY CLINIC [address] | [place] | | | | | [address] | [id number] | | | | | [place] [address] | | | | | | [phone] | | | +--------+ + + + [...] [place] | | | | | | [id number] | | | | | | | | +--------+ + + + + documented as of this encounter Visit Diagnoses Not on filedocumented in this encounter
--- OUTSIDE RECORDS SUMMARY | ~2020-02-21 | XMS | Encounter Summary ---
Demographics + + + | Address | [address] | | | [place] [address] | + + + | Home Phone [...] [place], [place] | | | | | [address] | | + + + + + | Isabella "Tiki" | ECON | [address] | | | [place] | | [place], [place] | | | | | [address] | | + + + + + Care Team Providers + +------+ + | Care 2Nd Pressman Name | Role | Phone | + [...] | 09/07/ | Hospital | [facility] | Ashu Singh DO | Recurrent basal cell | | 2019 | Encounter | MED CTR RADIATION | [address] | carcinoma (Primary | | | | ONCOLOGY CLINIC [address] | [place] | Dx) | | | | [address] | [address] | | | | | [place] [address] | | | | | | [phone] | | | +--------+ + + + [...] primary lesion which was previously managed with [place]. I will review and renew th is [...] | | | | | | [place] | | | | | | [address] | | | | | | | | +--------+ + + + + documented as of this encounter Visit Diagnoses + + | Diagnosis | + + | Recurrent basal cell carcinoma - Primary Basal cell carcinoma of skin, site | | unspecified | + + documented in this encounter
--- OUTSIDE RECORDS SUMMARY | ~2020-02-21 | XMS | Encounter Summary ---
Demographics + + + | Address | [address] | | | [place] [address] | + + + | Home Phone | | + + + | Preferred Language | Unknown | + + + | Marital Status | | + + + | Christianity Affiliation | NRP | + + + | Race | White | + + + | Ethnic Group | Not or | + + + Author + + + | Author | [facility] | + + + | Organization | [facility] | + + + | Address | Unknown | + + + | Phone | Unavailable | + + + Support + + + + + | Name | Relationship | Address | Phone | + + + + + | Alanna Merino | DAT | [address] | | | | | [address] | | | | | [address] | | + + + + + Care Team Providers + +------+ + | Care Personnel Specialist Name | Role | Phone | + +------+ + | No Pcp Per Patient | PCP | Unavailable | + +------+ + Encounter Details +--------+ + + + + | Date | Type | Department | Care Team | Description | +--------+ + + + + | 11/22/ | Documentati | [facility] | Deion Sommer, | | | 2019 | on | [facility] | [address] | | | | | [facility] | [address] | | | | | [address] | [place], [place] | | | | | Giselle Maldonado [place] | [address] | | | | | [facility], | [phone] | | | | | floor [place], [place] | | | | | | [address] | | | | | | [phone] | | | +--------+ + + + [...]
--- OUTSIDE RECORDS SUMMARY | ~2020-02-21 | XMS | Encounter Summary ---
Demographics + + + | Address | [address] | | | [place] [address] | + + + | Home Phone [...] + + + | Author | [facility] | | | and [place] | + + + | Organization | [facility] | | [...] [place], [place] | | | | | [address] | | + + + + + | Isabella "iTki" | ECON | [address] | | | [place] | | [place], [place] | | | | | [address] | | + + + + + Care Team Providers + +------+ + | Care Plate Shear Operator Name | Role | Phone | + +------+ + PCP | Unavailable | + +------+ + Encounter Details +--------+ + + + + | Date | Type | Department | Care Team | Description | +--------+ + + + + | 10/16/ | Hospital | [facility] | Otis Grider, | | | 2006 | Encounter | MED CTR SLEEP | [address] | | | | | [place] [address] | [place], [place] | | | | | [place] | [address] | | | | | [address] | | | | | | [phone] | | | +--------+ + + + [...] [place] | | | | | | [address] | | | | | | | | +--------+ + + + + documented as of this encounter Visit Diagnoses Not on filedocumented in this encounter
--- OUTSIDE RECORDS SUMMARY | ~2020-02-21 | XMS | Encounter Summary ---
Demographics + + + | Address | [address] | | | [place] [address] | + + + | Home Phone [...] [place], [place] | | | | | [address] | | + + + + + | Isabella "Tiki" | ECON | [address] | | | [place] | | [place], [place] | | | | | [address] | | + + + + + Care Team Providers + +------+ + | Care Instructor Hairspring Name | Role | Phone | + +------+ + | Alen Bolanos MD | PCP | | + +------+ + Encounter Details +--------+ + + + + | Date | Type | Department | Care Team | Description | +--------+ + + + + | 08/09/ | Hospital | [facility] | Ashu Singh DO | | | 2019 | Encounter | MED CTR RADIATION | [address] | | | | | ONCOLOGY [address] | [place] | | | | | [place], | [address] | | | | | [place] [address] | | | | | | [phone] | | | +--------+ + + + [...] [place] | | | | | | [address] | | | | | | | | +--------+ + + + + documented as of this encounter Visit Diagnoses Not on filedocumented in this encounter
--- OUTSIDE RECORDS SUMMARY | ~2020-02-21 | XMS | Encounter Summary ---
Demographics + + + | Address | [address] | | | [place] [address] | + + + | Home Phone [...] | Author | [facility] | | | and [place] | + + + | Organization | [facility] | | [...] [place], [place] | | | | | [address] | | + + + + + | Isabella "Tiki" | ECON | [address] | | | [place] | | [place], [place] | | | | | [address] | | + + + + + Care Team Providers + +------+ + | Care Microsoft Dynamics Ax Consultant Name | Role | Phone | [...] + + | 01/17/ | Telephone | [facility] | Ashu Singh DO | Other | | 2019 | | MED CTR MEDICAL | [address] [facility] | | | | | ONCOLOGY CLINIC [address] | [place] | | | | | [address] | [address] | | | | | [place] [address] | | | | | | [phone] | | | +--------+ + + + [...] [place] | | | | | | [id number] | | | | | | | | +--------+ + + + + documented as of this encounter Visit Diagnoses Not on filedocumented in this encounter
--- OUTSIDE RECORDS SUMMARY | ~2020-02-21 | XMS | Encounter Summary ---
Demographics + + + | Address | [address] | | | [place] [address] | + + + | Home Phone [...] [place], [place] | | | | | [address] | | + + + + + | Isabella "Tiki" | ECON | [address] | | | [place] | | [place], [place] | | | | | [address] | | + + + + + Care Team Providers + +------+ + | Care Garage Worker Name | Role | Phone | [...] | | | | | [address] [facility] | [place] [address] | | | | | [place] [address] | | | | | | [phone] | | | +--------+ + + + [...] [place] | | | | | | [id number] | | | | | | | [...]
--- OUTSIDE RECORDS SUMMARY | ~2020-02-21 | XMS | Encounter Summary ---
Demographics + + + | Address | [address] | | | [place] [address] | + + + | Home Phone | | + + + | Preferred Language | Unknown | + + + | Marital Status | | + + + | Christian Affiliation | NRP | + + + | Race | White | + + + | Ethnic Group | Not or | + + + Author + + + | Author | [facility] | + + + | Organization | [facility] | + + + | Address | Unknown | + + + | Phone | Unavailable | + + + Support + + + + + | Name | Relationship | Address | Phone | + + + + + | Alanna Mernio | DAT | [address] | | | | | [address] | | | | | [address] | | + + + + + Care Team Providers + +------+ + | Care Sewer Contractor Name | Role | Phone | + [...] as of this encounter Progress Notes Interface, Card Player In - 02/01/2006 1:02 AM PDTSURGEON: Camron Coon M.D. GARAGEMAN: Renetta Carlos M.D. RESIDENT: Rayray Win M.D. [...] result. NS/lf A 1: 02 AM PDTInterface, Card Player In - 02/01/2006 1:02 AM PDTSURGEON: Camron Coon M.D. GARAGEMAN: Renetta Carlos M.D. RESIDENT: Rayray Win M.D. [...]
--- OUTSIDE RECORDS SUMMARY | ~2020-02-21 | XMS | Encounter Summary ---
Demographics + + + | Address | [address] | | | [place] [address] | + + + | Home Phone | | + + + | Preferred Language | Unknown | + + + | Marital Status | | + + + | Jehovah'S Witness Affiliation | NRP | + + + | Race | White | + + + | Ethnic Group | Not or | + + + Author + + + | Author | [facility] | + + + | Organization | [facility] | + + + | Address | Unknown | + + + | Phone | Unavailable | + + + Support + + + + + | Name | Relationship | Address | Phone | + + + + + | Alanna Merino | DAT | [address] | | | | | [address] | | | | | [address] | | + + + + + Care Team Providers + +------+ + | Care Pet Resort Concierge Name | Role | Phone | + [...] | internal carotid | | | | [place], [place] | | artery | | | | [address] | | | | | | [phone] | | | +--------+------+ + + + [...] | + + + + + | [facility] | [address] | [place] [address] | | | SERVICES, CORE | PARK [...]
--- OUTSIDE RECORDS SUMMARY | ~2020-02-21 | XMS | Encounter Summary ---
Demographics + + + | Address | [address] | | | [place] [address] | + + + | Home Phone | | + + + | Preferred Language | Unknown | + + + | Marital Status | | + + + | Congregational Affiliation | Unknown | + + + [...] [place], [place] | | | | | [address] | | + + + + + | Isabella "Tiki" | ECON | [address] | | | [place] | | [place], [place] | | | | | [address] | | + + + + + Care Team Providers + +------+ + | Care Foley Artist Name | Role | Phone | [...] + + | 09/21/ | Hospital | [facility] | Ashu Singh DO | Basal cell carcinoma | | 2019 | Encounter | MED CTR [facility]ATION | [address] | (BCC) of skin of | | | | ONCOLOGY CLINIC [address] | [place] | neck (Primary Dx) | | | | [address] | [address] | | | | | [place] [id number] | | | | | | [phone] | | | +--------+ + + + [...] 6 Pain Quality: Stable Current pain regimen: [place] 5/325 2 tabs 4 times a day [...] this well with no signific ant pruritus. [place] has been titrated to 2 tabs 4 times a day leading to improved overall p ain control-he is now requesting a refill. I will represcribed [place] at 10 mg/325 mg 1-2 ta b [...] [place] | | | | | | [id number] | | | | | | | | +--------+ + + + + documented as of this encounter Visit Diagnoses + + | Diagnosis | + + | Basal cell carcinoma (BCC) of skin of neck - Primary | + + documented in this encounter
--- OUTSIDE RECORDS SUMMARY | ~2020-02-21 | XMS | Encounter Summary ---
Demographics + + + | Address | [address] | | | [place] [address] | + + + | Home Phone | | + + + | Preferred Language | Unknown | + + + | Marital Status | | + + + | Congregation Affiliation | NRP | + + + | Race | White | + + + | Ethnic Group | Not or | + + + Author + + + | Author | [facility] | + + + | Organization | [facility] | + + + | Address | Unknown | + + + | Phone | Unavailable | + + + Support + + + + + | Name | Relationship | Address | Phone | + + + + + | Alanna Merino | DAT | [address] | | | | | [address] | | | | | [address] | | + + + + + Care Team Providers + +------+ + | Care Pipe Straightener Name | Role | Phone | + [...] Pharmacy | | | | | | [address] | | | | | | [place], [place] | | | | | | [address] | | | | | | [phone] | | | +--------+ + + + [...]
--- OUTSIDE RECORDS SUMMARY | ~2020-02-21 | XMS | Encounter Summary ---
Demographics + + + | Address | [address] | | | [place] [address] | + + + | Home Phone | | + + + | Preferred Language | Unknown | + + + | Marital Status | | + + + | Hinduism Affiliation | NRP | + + + | Race | White | + + + | Ethnic Group | Not or | + + + Author + + + | Author | [facility] | + + + | Organization | [facility] | + + + | Address | Unknown | + + + | Phone | Unavailable | + + + Support + + + + + | Name | Relationship | Address | Phone | + + + + + | Alanna Merino | DAT | [address] | | | | | [address] | | | | | [address] | | + + + + + Care Team Providers + +------+ + | Care Lift Mechanic Name | Role | Phone | + +------+ + | No Pcp Per Patient | PCP | Unavailable | + +------+ + Encounter Details +--------+--------+ + + + | Date | Type | Department | Care Team | Description | +--------+--------+ + + + | 10/06/ | Intake | Transfer Center | | N/A | | 2019 | | [address] | | | | | | [place], | | | | | | [place] [address] | | | +--------+--------+ + + + [...]
--- OUTSIDE RECORDS SUMMARY | ~2020-02-21 | XMS | Encounter Summary ---
Demographics + + + | Address | [address] | | | [place] [address] | + + + | Home Phone [...] [place], [place] | | | | | [address] | | + + + + + | Isabella "Tiki" | ECON | [address] | | | [place] | | [place], [place] | | | | | [address] | | + + + + + Care Team Providers + +------+ + | Care Sound Effects Person Name | Role | Phone | [...] | Recurrent | Carly M, | [address] [place] | | | | | basal cell | MD [address] | [place], | | | | | carcinoma | [address] | [place] [address] | | | | | Procedures | [place], | Phone: | | | | | CT Treatment | [place] [address] | [phone] | | | | | Plan | Phone: | Fax: | | | | | Complex | [phone] | [phone] | | | | | | Fax: | | | | | | | [phone] | | +--------+--------+ + + + + [...] | Recurrent | Carly M, | [address] [place] | | | | | basal cell | MD [address] | [place], | | | | | carcinoma | [address] | [facility] | | | | | Procedures | [place], | Phone: | | | | | CT Treatment | [facility] | [phone] | | | | | Plan | Phone: | Fax: | | | | | Complex | [phone] | [phone] | | | | | | Fax: | | | | | | | [phone] | | +--------+--------+ + + + + Encounter Details +--------+ + + + + | Date | Type | Department | Care Team | Description | +--------+ + + + + | 05/09/ | Hospital | [facility] | Carly Jaime | Recurrent basal cell | | 2019 | Encounter | MED CTR [address] | M, MD [address] | carcinoma | | | | [place], | [place], [place] | | | | | [place] [address] | [address] | | | | | [phone] | | | +--------+ + + + [...] [place] | | | | | | [address] | | | | | | | [...]
--- OUTSIDE RECORDS SUMMARY | ~2020-02-21 | XMS | Encounter Summary ---
Demographics + + + | Address | [address] | | | [place] [address] | + + + | Home Phone [...] [place], [place] | | | | | [address] | | + + + + + | Isabella "Tiki" | ECON | [address] | | | [place] | | [place], [place] | | | | | [address] | | + + + + + Care Team Providers + +------+ + | Care Assistant Dean Name | Role | Phone | + +------+ + | No, Physician | PCP | Unavailable | + +------+ + Encounter Details +--------+ + + + + | Date | Type | Department | Care Team | Description | +--------+ + + + + | 05/04/ | Hospital | [facility] | Yeni Carly | | | 2019 | Encounter | MED [facility] RAD[facility]ATION | MD Paulette [address] | | | | | ONCOLOGY [address] | [facility] [place], [place] | | | | | [place], | [address] | | | | | [place] [address] | | | | | | [phone] | | | +--------+ + + + [...] [place] | | | | | | [id number] | | | | | | | | +--------+ + + + + documented as of this encounter Visit Diagnoses Not on filedocumented in this encounter
--- OUTSIDE RECORDS SUMMARY | ~2020-02-21 | XMS | Encounter Summary ---
Demographics + + + | Address | [address] | | | [place] [address] | + + + | Home Phone [...] [place], [place] | | | | | [address] | | + + + + + | Isabella "Tiki" | ECON | [address] | | | [place] | | [place], [place] | | | | | [address] | | + + + + + Care Team Providers + +------+ + | Care Software Engineering Associate Manager Name | Role | Phone | [...] MED [facility] RAD[facility]ATION | [address] [facility] | | | | | ONCOLOGY CLINIC [address] | [place] | | | | | [address] | [address] | | | | | [place] [address] | | | | | | [phone] | | | +--------+--------+ + + + [...] [place] | | | | | | [address] | | | | | | | | +--------+ + + + + documented as of this encounter Visit Diagnoses + + | Diagnosis | + + | Recurrent basal cell carcinoma Basal cell carcinoma of skin, site unspecified | + + documented in this encounter
--- OUTSIDE RECORDS SUMMARY | ~2020-02-21 | XMS | Encounter Summary ---
Demographics + + + | Address | [address] | | | [place] [address] | + + + | Home Phone [...] [place], [place] | | | | | [address] | | + + + + + | Isabella "Tiki" | ECON | [address] | | | [place] | | [place], [place] | | | | | [address] | | + + + + + Care Team Providers + +------+ + | Care Feather Renovator Name | Role | Phone | + [...] + + | 08/08/ | Telephone | [facility] | Ashu Singh DO | IDT Note | | 2018 | | MED CTR RADIATION | [address] [facility] | | | | | ONCOLOGY CLINIC [address] | [place], [place] | | | | | [facility] | [address] | | | | | [place] [address] | | | | | | [phone] | | | +--------+ + + + [...] Robb RN - 08/08/2018 1:39 PM PST [facility] Interdisciplinary Team Navigational Checklist ? Top Priority Discipline EPIC Order Entered Consult Scheduled Consult Complete Comments: *Medical Oncology x *Radiation Oncology Dr. Singh *Patient Navigation *Nurse Navigator *Social Service Survivorship Nurse Breast Health Genetics Surgical Input *Nursing assessment *Pharmacy assessment Nutrition Rehab: PT OT Speech & Language Palliative Care Clinical Trials Involvement Clinical Data Coordinator Visit Financial Assistance Interdisciplinary Consults Completed Date: [...]
--- OUTSIDE RECORDS SUMMARY | ~2020-02-21 | XMS | Encounter Summary ---
Demographics + + + | Address | [address] | | | [place] [address] | + + + | Home Phone [...] [place] | | | | | [address] | | + + + + + Care Team Providers + +------+ + | Care Neck Pinner Name | Role | Phone | + [...] as of this encounter Progress Notes Interface, Video Production Specialist In - 02/10/2006 1:08 AM PDT May [...]
--- OUTSIDE RECORDS SUMMARY | ~2020-02-21 | XMS | Encounter Summary ---
Demographics + + + | Address | [address] | | | [place] [address] | + + + | Home Phone | | + + + | Preferred Language | Unknown | + + + | Marital Status | | + + + | Jew Affiliation | NRP | + + + [...] [place] | | | | | [address] | | + + + + + Care Team Providers + +------+ + | Care Track Grinder Operator Name | Role | Phone | [...] + + | 11/29/ | Refill | [facility] | Deion Sommer, | Refill Request | | 2019 | | [facility] [place] | [address] | | | | | [facility] | [address] | | | | | [address] | [place], [place] | | | | | [place] | [address] | | | | | [facility], | [phone] | | | | | floor [place], [place] | | | | | | [address] | | | | | | [phone] | | | +--------+--------+ + + + [...]
--- OUTSIDE RECORDS SUMMARY | ~2020-02-21 | XMS | Encounter Summary ---
Demographics + + + | Address | [address] | | | [place] [address] | + + + | Home Phone [...] [place] | | | | | [address] | | + + + + + Care Team Providers + +------+ + | Care Social Media Editor Name | Role | Phone | + [...] of skin | | | | [facility] | | | | | | Health and Healing, | | | | | | [facility] 1, | | | | | | Floor [place], [place] | | | | | | [address] | | | | | | [phone] | | | +--------+ + + + [...] [place]i Bird MD - 12/23/2008 2:57 PM PDT[facility] -Apply ice over the [...] than the day before How to Reach [phone] Toll-free [phone] Evenings and Weekends: [phone] documented in this encounter Progress Notes Lia [...] neck SURGEON: Steve De La Cruz M.D. HEADING AND PRIMING OPERATOR: Boy Gomes MD and Kelsi Bird MD [...] neck SURGEON: Steve De La Cruz M.D. HEADING AND PRIMING OPERATOR: Boy Gomes MD and K[place]i Bird MD [...] CLOSURE SURGEON: Steve De La Cruz M.D. HEADING AND PRIMING OPERATOR: Boy Gomes MD and Kelsi Bird MD [...] procedure. Billy Medellin - 12/03 8:58 AM [id number] 2gm po given per vo KL with readback. documented in this encounter Plan of Treatment + + +--------+ + + | Name | Type | Priori | Associated Diagnoses | Order Schedule | | | | ty | | | + + +--------+ + + | [place] MOHS,1 | Procedures | Routin | Other Malignant | Ordered: 12/23/2008 | | STAGE,H/N/HF/G | | e | Neoplasm of Scalp | | | | | | and Skin of Neck | | + + +--------+ + + | [place] MOHS ADDL STAGE | Procedures | Routin | Other Malignant | Ordered: 12/23/2008 | | | | e | Neoplasm of Scalp | | | | | | and Skin of Neck | | + + +--------+ + + | MT REPR CMPL WND | Procedures | Routin | Other Malignant | Ordered: 12/23/2008 | | HEAD,FAC,HAND | | e | Neoplasm of Scalp | | | 2.6-7.5 | | | and Skin of Neck | | + + +--------+ + + | [place] | Procedures | Routin | Other Malignant [...]
--- OUTSIDE RECORDS SUMMARY | ~2020-02-21 | XMS | Encounter Summary ---
Demographics + + + | Address | [address] | | | [place] [address] | + + + | Home Phone [...] Author | [facility] | | | and [place] | + + + | Organization | [facility] | | [...] [place], [place] | | | | | [address] | | + + + + + | Isabella "Tiki" | ECON | [address] | | | [place] | | [place], [place] | | | | | [address] | | + + + + + Care Team Providers + +------+ + | Care General Utility Machine Operator Name | Role | Phone [...] [place] | | | | | [address] | [place] [address] | | | | | [phone] | [phone] | | | | | | | [...] Miscellaneous Notes Telephone Encounter - Winifred Marquez Live Source Operator - 12/20/2018 2:55 PM PDTFaxed request for results. Electronically signed by Ken Francisco at 2018 2:55 PM PDTTelephone Encounter - Sonia Marx RN - 12/07/2018 4:[address] An dexter's called to say he needs labs prior to CT. Orders entered and faxed to [facility], confirmation received. elephone Encounter - Winifred Marquez Live Source Operator - 12/07/2018 3:29 PM PDT Notified patient and his CT scan had been authorized. Number for [facility] was provided to schedule CT appt. Patient and were notified to call us to reschedule if CT could not be scheduled prior to Tuesday's appt. elephone Encounter - Winifred Marquez Med ical Unit Aid - 12/04/2018 2:30 PM PDTUnable to leave message. CT scan has been authorized and is ready to be scheduled. Order faxed to [facility] in [place]. Electronic ally signed by Ken Francisco at 12/04/2018 2:32 PM PDTdocumented in this encounter Plan of Treatment +--------+ + + + + | Date | Type | Specialty | Care Team | Description | +--------+ + + + + | 03/26/ | Appointment | Radiation Oncology | Papito Alvarez MD | | | 2019 | | | [address] [facility] | | | | | | [place] | | | | | | [address] | | | | | | | [...]
--- OUTSIDE RECORDS SUMMARY | ~2020-02-21 | XMS | Encounter Summary ---
Demographics + + + | Address | [address] | | | [place] [address] | + + + | Home Phone [...] [place], [place] | | | | | [address] | | + + + + + | Isabella "Tiki" | ECON | [address] | | | [place] | | [place], [place] | | | | | [address] | | + + + + + Care Team Providers + +------+ + | Care Curbing Stonecutter Name | Role | Phone | + [...] + + | 12/26/ | Telephone | [facility] | Radhames Rdz | Other (Labs) | | 2020 | | [address] | MD [address] | | | | | [place] | [place] | | | | | [address] | [place] [address] | | | | | [phone] | [phone] | | | | | | | [...] BMP labs prior to appointment on 01/01/20. [facility] umanderson in this encounter Plan of [...]
--- OUTSIDE RECORDS SUMMARY | ~2020-02-21 | XMS | Encounter Summary ---
Demographics + + + | Address | [address] | | | [place] [address] | + + + | Home Phone [...] [place], [place] | | | | | [address] | | + + + + + | Isabella "Tiki" | ECON | [address] | | | [place] | | [place], [place] | | | | | [address] | | + + + + + [...] | | | ONCOLOGY CLINIC [address] | [place], [place] | | | | | [address] [facility] | [address] | | | | | [place] [address] | | | | | | [phone] | | | +--------+ + + + [...]
--- OUTSIDE RECORDS SUMMARY | ~2020-02-21 | XMS | Encounter Summary ---
Demographics + + + | Address | [address] | | | [place] [address] | + + + | Home Phone [...] [facility] | | | and [place] | + + + | Organization | [facility] | | | and [...] [place], [place] | | | | | [address] | | + + + + + | Isabella "Tiki" | ECON | [address] | | | [place] | | [place], [place] | | | | | [address] | | + + + + + Care Team Providers + +------+ + | Care Certified Registered Locksmith Name | Role | Phone | + [...] | | | | Procedures | [address] | [place] | | | | | [address] | [place], | [place], | | | | | | [place] | [place] [address] | | | | | | [address] | Phone: | | | | | | Phone: | [phone] | | | | | | [phone] | Fax: | | | | | | Fax: | [phone] | | | | | | [phone] | | +--------+--------+ + + + + Encounter Details +--------+ + + + + | Date | Type | Department | Care Team | Description | +--------+ + + + + | 12/23/ | Hospital | [facility] | Silke Garcia | Recurrent basal cell | | 2020 | Encounter | MED CTR RADIATION | EMILY Sykes [address] | carcinoma (Primary | | | | ONCOLOGY CLINIC [address] | [address] [place] | Dx) | | | | [address] [place] | [place] [address] | | | | | [place] [address] | [phone] | | | | | [phone] | | | +--------+ + + + [...] exposure in his lifetime, working in the [employer]. 01/30/1998- biopsy done basal cell carcinoma, superficial type 05/01/2002- Biopsy done basal cell carcinoma, sclerosing type. Status post MOHS surgery @ [facility] 11/07/2008- Biopsy done basal cell carcinoma. Status post additional MOHS surgery @ [facility] 06/02/2018- Brain MRI following a witnessed seizure; no evidence of metastases. 07/12/2018- PET/CT scan; moderate uptake in the region of basal cell carcinoma left anterior neck, no evidence of metastatic disease. 07/19/18- Consult with Dr. Funk at [facility] in [facility]. 08/01/18- Consult with Dr. Singh 09/04/18-10/02/18- Radiation therapy here at [facility] 55 Gy in 20 fractions. Excellent response wi th resolution of ulcerated mass at anterior left low neck. 10/09/18-left carotid stenting w/neurointerventional radiology 04/05/19-Dominique Montague @ [facility] D[facility]atology Biopsies done- No recurrence in prior [...] cancer, being treated by Dr. Funk in [place]. Mr. Jorge feels well. He states he [...] 10/09/2018 MOHS SURGERY 2001 & 2009 @ [facility] SKIN CANCER EXCISION TONSILLECTOMY VASECTOMY Family [...] file Gets together: Not on file Attends denominational service: Not on file Active member of [...] to transfer his c are to a therapeutic case manager in [place]. He will be referred. Plan His questions and concerns were answer to his satisfaction. He understands the plan of care as outlined below and agrees. 1. Refer patient to therapeutic case manager in [place]. Nursing agrees to look at his insurance [...] EMILY Hernández, AOCNP Department of Radiation Oncology [facility] Office: [phone] documented in this encounter Plan of Treatment [...] [place] | | | | | | [address] | | | | | | | | +--------+ + + + + documented as of this encounter Visit Diagnoses + + | Diagnosis | + + | Recurrent basal cell carcinoma - Primary Basal cell carcinoma of skin, site | | unspecified | + + documented in this encounter
--- OUTSIDE RECORDS SUMMARY | ~2020-02-21 | XMS | Encounter Summary ---
Demographics + + + | Address | [address] | | | [place] [address] | + + + | Home Phone | | + + + | Preferred Language | Unknown | + + + | Marital Status | | + + + | Baptist Affiliation | NRP | + + + | Race | White | + + + | Ethnic Group | Not or | + + + Author + + + | Author | [facility] | + + + | Organization | [facility] | + + + | Address | Unknown | + + + | Phone | Unavailable | + + + Support + + + + + | Name | Relationship | Address | Phone | + + + + + | Alanna Merino | DAT | [address] | | | | | [address] | | | | | [address] | | + + + + + Care Team Providers + +------+ + | Care Truck Driver Name | Role | Phone [...] [address] | | | | | [facility] | [address] | | | | | [address] | [place], [place] | | | | | Giselle Maldonado [facility] | [address] | | | | | [facility], | [phone] | | | | | [place] [address] | | | | | | [phone] | | | +--------+ + + + [...]
--- OUTSIDE RECORDS SUMMARY | ~2020-02-21 | XMS | Encounter Summary ---
Demographics + + + | Address | [address] | | | [place] [address] | + + + | Home Phone [...] [place], [place] | | | | | [address] | | + + + + + | Isabella "Tiki" | ECON | [address] | | | [place] | | [place], [place] | | | | | [address] | | + + + + + Care Team Providers + +------+ + | Care Doctor Of Osteopathy Name | Role | Phone | + [...] | | | [address] [place] | [place] [address] | | | | | [place] [address] | | | | | | [phone] | | | +--------+ + + + [...] [place] | | | | | | [address] | | | | | | | [...]
--- OUTSIDE RECORDS SUMMARY | ~2020-02-21 | XMS | Encounter Summary ---
Demographics + + + | Address | [address] | | | [place] [address] | + + + | Home Phone | | + + + | Preferred Language | Unknown | + + + | Marital Status | | + + + | Uatsdin Affiliation | NRP | + + + | Race | White | + + + | Ethnic Group | Not or | + + + Author + + + | Author | [facility] | + + + | Organization | [facility] | + + + | Address | Unknown | + + + | Phone | Unavailable | + + + Support + + + + + | Name | Relationship | Address | Phone | + + + + + | Alanna Merino | DAT | [address] | | | | | [address] | | | | | [address] | | + + + + + Care Team Providers + +------+ + | Care Tram Inspector Name | Role | Phone | [...] | | | | | [place], | | | | | | [place] [address] | | | +--------+--------+ + + + [...]
--- OUTSIDE RECORDS SUMMARY | ~2020-02-21 | XMS | Encounter Summary ---
Demographics + + + | Address | [address] | | | [place] [address] | + + + | Home Phone [...] Author | [facility] | | | and [place] | + + + | Organization | [facility] | [...] [place], [place] | | | | | [address] | | + + + + + | Isabella "Tiki" | ECON | [address] | | | [place] | | [place], [place] | | | | | [address] | | + + + + + Care Team Providers + +------+ + | Care Foot Caster Name | Role | Phone | + +------+ + | No, Physician | PCP | Unavailable | + +------+ + Encounter Details +--------+ + + + + | Date | Type | Department | Care Team | Description | +--------+ + + + + | 06/08/ | Hospital | [facility] | Yeni Carly | | | 2019 | Encounter | MED CTR RADIATION | MD Paulette [address] | | | | | ONCOLOGY [address] | [facility] [place], [place] | | | | | [place], | [address] | | | | | [place] [address] | | | | | | [phone] | | | +--------+ + + + [...] [place] | | | | | | [address] | | | | | | | | +--------+ + + + + documented as of this encounter Visit Diagnoses Not on filedocumented in this encounter
--- OUTSIDE RECORDS SUMMARY | ~2020-02-21 | XMS | Encounter Summary ---
Demographics + + + | Address | [address] | | | [place] [address] | + + + | Home Phone [...] + + | Author | [facility] | | | and [place] | + + + | Organization | [facility] | | [...] [place], [place] | | | | | [address] | | + + + + + | Isabella "Tiki" | ECON | [address] | | | [place] | | [place], [place] | | | | | [address] | | + + + + + Care Team Providers + +------+ + | Care Zipper Repairer Name | Role | Phone | [...] + + | 09/29/ | Telephone | [facility] | Ashu Singh, DO | Other | | 2018 | | MED CTR RADIATION | [address] [facility] | | | | | ONCOLOGY CLINIC [address] | [place] | | | | | [address] | [id number] | | | | | [place] [address] | | | | | | [phone] | | | +--------+ + + + [...] | | | | | | [place] | | | | | | [address] | | | | | | | | +--------+ + + + + documented as of this encounter Visit Diagnoses Not on filedocumented in this encounter
--- OUTSIDE RECORDS SUMMARY | ~2020-02-21 | XMS | Encounter Summary ---
Demographics + + + | Address | [address] | | | [place] [address] | + + + | Home Phone [...] Author | [facility] | | | and [place] | + + + | Organization | [facility] | | | and [...] [place], [place] | | | | | [address] | | + + + + + | Isabella "Tiki" | ECON | [address] | | | [place] | | [place], [place] | | | | | [address] | | + + + + + Care Team Providers + +------+ + | Care Gold Buyer Name | Role | Phone | [...] + + | 10/16/ | Telephone | [facility] | Ashu Singh, DO | Other | | 2018 | | MED CTR MEDICAL | [address] [facility] | | | | | ONCOLOGY CLINIC [address] | [place] | | | | | [address] | [id number] | | | | | [place] [address] | | | | | | [phone] | | | +--------+ + + + [...] called, pts neck wound is still bleeding. [facility] adoredawn farnaz can't get him in until the . KRISTI was really concerned and so is she. The wound s pecialist compared it to a burn patient. He is on a blood thinner and of course that's not helping. She is very concerned. [phone] asks for call documented in this encou [...] [place] | | | | | | [address] | | | | | | | | +--------+ + + + + documented as of this encounter Visit Diagnoses Not on filedocumented in this encounter
--- OUTSIDE RECORDS SUMMARY | ~2020-02-21 | XMS | Encounter Summary ---
Demographics + + + | Address | [address] | | | [place] [address] | + + + | Home Phone [...] + + + | Author | [facility] | + + + | Organization | [facility] | + + + | Address | Unknown | + + + | Phone | Unavailable | + + + Support + + + + + | Name | Relationship | Address | Phone | + + + + + | Alanna Merino | DAT | [address] | | | | | [address] | | | | | [address] | | + + + + + Care Team Providers + +------+ + | Care Grab Operator Name | Role | Phone | [...] | | | | [place] [address] | | | | | | [phone] | | | | | | | [...]
--- OUTSIDE RECORDS SUMMARY | ~2020-02-21 | XMS | Encounter Summary ---
Demographics + + + | Address | [address] | | | [place] [address] | + + + | Home Phone [...] [place], [place] | | | | | [address] | | + + + + + | Isabella "Tiki" | ECON | [address] | | | [place] | | [place], [place] | | | | | [address] | | + + + + + Care Team Providers + +------+ + | Care Mattress And Boxsprings Supervisor Name | Role | Phone | [...] | | unspecified | MD Dequan | [address] | | | | | type | [address] | KEM [place]E | | | | | Procedures | [place] | [place] | | | | | CT Urogram w | [place] | [address] | | | | | wo Contrast | [address] | Phone: | | | | | [address] | Phone: | [phone] | | | | | SCAN,ABDOMEN | [phone] | Fax: | | | | | T AND | Fax: | [phone] | | | | | PELVIS,COMBO | [phone] | | +--------+--------+ + + + + [...] | | | | G[place] | [place] [address] | | | | | | [place], [place] | Phone: | | | | | | [address] | [phone] | | | | | | Phone: | Fax: | | | | | | [phone] | [phone] | | | | | | Fax: | | | | | | | [phone] | | +--------+--------+ + + + + Encounter Details +--------+---------+ + + + | Date | Type | Department | Care Team | Description | +--------+---------+ + + + | 11/21/ | Office | [facility] | Radhames Rdz | Hematuria, | | 2019 | Visit | [address] | MD Dequan [address] | unspecified type | | | | [place] | [place] | (Primary Dx) | | | | [address] | [place] [address] | | | | | [phone] | [phone] | | | | | | | [...] any toxic exposures, but was in the [employer] for 20 years, with 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 One of his duty stations was not [place]. He recently had a basal cell cancer of his neck radiated, and following the radiation thera py, he developed a left carotid obstruction, which required angioplasty and stent placement at [facility]. While at [facility], he had gross hematuria, which was otherwise asymptomatic. He denie s any instrumentation. He has had no prior episodes of gross hematuria, and has very little in the way of bladder irritative or obstructive voiding symptoms at present. His urinalysis today was positive fo r blood, and his postvoid residual was only 38 cc. I reviewed the labs from [facility] this last October, and his kidney [...] to have the CT urogram performed in [place], and will return for his urin e [...] effort is made to edit the content, journey lineman errors may occur. Occasional wrong word or [...] | 2019 | | | [address] [facility] | | | | | | [place] | | | | | | [id number] | | | | | | | [...] [address] | [place] | [phone] | | [facility] | | [address] | | | - LABORATORY | | [...] [address] | [place] | [phone] | | [facility] | | [address] | | | - LABORATORY | | [...] 1.001 - 1.030 | | | | [place], | | | | | | UA, [...]
--- OUTSIDE RECORDS SUMMARY | ~2020-02-21 | XMS | Clinical Summary ---
Demographics + + + | Address | [address] | | | [place] [address] | + + + | Home Phone | | + + + | Preferred Language | Unknown | + + + | Marital Status | | + + + | Religion Affiliation | NRP | + + + [...] [place] | | | | | [address] | | + + + + + Care Team Providers + +------+ + | Care Protective Signal Repairer Helper Name | Role | Phone | + +------+ + | No Pcp Per Patient | PCP | Unavailable | + +------+ + Source Comments KRISTI is fully live on both [facility] and [facility] InPatient.[facility] Allergies No Known Allergies Medications + + [...] , 10/06. Has | | been intermittent. [place]-dark red blood observed, no clots. UA | [...] | wound gently with warm wet gauze. [place] periwound skin with | | Cavilon skin [...] | SANDY | xxxxxxxxx | 10/07/19 | [phone] | | [place] | | | E [...] | | al/Fam | | 1954 | [phone] | [place] | | | fransisca | | | 5 (Home) | [address] | | | | | | [phone] | | | | | | | 4 (Work) | | + +--------+ +--------+ + + Advance Directives + + + + + | Type | Date Recorded | Patient | Explanation | | | | Pound Attendant | | + + + + + | Advance | | | | | Directives and | | | | | Living Will | | | | + + + + + | Power of | | | | | Marine Service Manager | | | | + + + [...]
--- OUTSIDE RECORDS SUMMARY | ~2020-02-21 | XMS | Encounter Summary ---
Demographics + + + | Address | [address] | | | [place] [address] | + + + | Home Phone [...] + + | Author | [facility] | + + + | Organization | [facility] | + + + | Address | Unknown | + + + | Phone | Unavailable | + + + Support + + + + + | Name | Relationship | Address | Phone | + + + + + | Alanna Merino | DAT | [address] | | | | | [address] | | | | | [address] | | + + + + + Care Team Providers + +------+ + | Care Pollution Control Engineer Name | Role | Phone | [...] | Only | [address] | [phone] | | | | | [place] | | | | | | [address] | | | | | | [phone] | | | +--------+ + + + [...] | | | | | | slide, [id number] returned | | | | | | [...] | + + + + + | [facility] | [address] [facility] | [place] [address] | | | PATHOLOGY | [address] | | | + + + + + | [facility] | [address] [place] [address] | [place] [address] | | | PATHOLOGY | [address] [...] S# | | | | | | [id number] returned to | | | | | [...] | + + + + + | [facility] | [address] | [place] [address] | | | PATHOLOGY | [address] | | | + + + + + | [facility] | [address] | [place] [address] | | | PATHOLOGY | [address] | | | + + + + + documented in this encounter Visit Diagnoses Not on filedocumented in this encounter"
--- OUTSIDE RECORDS SUMMARY | ~2020-02-21 | XMS | Encounter Summary ---
Demographics + + + | Address | [address] | | | [place] [address] | + + + | Home Phone [...] [place], [place] | | | | | [address] | | + + + + + | Isabella "Tiki" | ECON | [address] | | | [place] | | [place], [place] | | | | | [address] | | + + + + + Care Team Providers + +------+ + | Care Motor Rebuilder Name | Role | Phone | + [...] + + | 05/08/ | Telephone | [facility] | Danielle Robb, | IDT Note | | 2018 | | MED CTR RADIATION | RN | | | | | ONCOLOGY CLINIC [address] | | | | | | [address] | | | | | | [place] [address] | | | | | | [phone] | | | +--------+ + + + [...] Robb RN - 05/08/2019 10:34 AM PST [facility] Interdisciplinary Team Navigational Checklist ? Top Priority Discipline EPIC Order Entered Consult Scheduled Consult Complete Comments: x *Medical Oncology x *Radiation Oncology Dr. Yeni Hitchcock 05/09/2019 x *Patient Navigation x *Nurse Navigator *Social Service Survivorship Nurse Breast Health Genetics Surgical Input *Nursing assessment *Pharmacy assessment Nutrition Rehab: PT OT Speech & Language Palliative Care Clinical Trials Involvement Sql Programmer Visit Financial Assistance Interdisciplinary Consults Completed Date: [...] [place] | | | | | | [address] | | | | | | | | +--------+ + + + + documented as of this encounter Visit Diagnoses Not on filedocumented in this encounter
[~2020-02-21 13:23] MED LIST changes: +ASPIRIN81 MG PO; +ATORVASTATIN CA40 MG PO; +LIPITOR80 MG GT
--- OUTSIDE RECORDS SUMMARY | 2020-02-21 13:26 | XMS ---
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 05/15/2018-Current PHONE: [phone] [facility] has no Care Guidelines for this patient. Care History Medical/Surgical 05/15/2018 [facility] - PATIENT PCP DR BOLANOS MADE A REFERRAL TO A NEUROLOGIST DR NICHOLS. PATIENT DAUGHTER HOUSTON WAS TO CONTACT THE NEUROLOGIST OFFICE AND SCHEDULE AN APT. - Patient is currently established with [facility]. If patient is seen in the ED during business hours. Please contact CHWs at [facility]. Care Recommendation: This patient has had 5 [...] providing care. E.D. VISIT COUNT (12 MO.) 1 SHE[place]BY [place] TOTAL 1 NOTE: Visits indicate total known visits. ED/UCC VISIT TRACKING (12 MO.) 02/21/2020 13:24 [place] TYPE: Emergency COMPLAINT: - RIB PAIN INPATIENT VISIT TRACKING (12 MO.) No inpatient visits to display in this time frame [id number]
[2020-02-21] MEDS ORDERED: ASPIRIN EC325 MG (13:35)
[2020-02-21] MEDS ORDERED: LISINOPRIL20 MG PO (13:36)
[2020-02-21] MEDS ORDERED: BUPROPION XL300 MG PO (13:36)
[2020-02-21] MEDS ORDERED: PRILOSEC10 M1 PO (13:37)
[2020-02-21] MEDS ORDERED: LIPITOR40 MG PO (13:37)
[2020-02-21] MEDS ORDERED: NORCO 7.5-3251 EACH PO (15:29)
== END 2020-02-21 15:44 | disposition home or self-care (01) ==
LOC: ED 13:23
DX: S22.31XA Fracture of one rib, right side, initial encounter for closed fracture (principal); I10 Essential (primary) hypertension; E78.5 Hyperlipidemia, unspecified; Z86.73 Personal history of transient ischemic attack (TIA), and cerebral infarction without residual deficits; F17.200 Nicotine dependence, unspecified, uncomplicated; W10.9XXA Fall (on) (from) unspecified stairs and steps, initial encounter
CPT/HCPCS: 71260; 74177; 80053; 85025; 96361; 99284-25; J3010; J7040; Q9967

== ENCOUNTER 2020-03-03 11:03 | Inpatient (IN) | payer OTHER ==
[~2020-03-03] VITALS: Ht 175.3 cm; Wt 86.6 kg
--- OUTSIDE RECORDS SUMMARY | ~2020-03-03 | XMS | Encounter Summary ---
Demographics + + + | Address | [address] | | | [place] [address] | + + + | Home Phone | | + + + | Preferred Language | Unknown | + + + | Marital Status | | + + + | Roman Catholic Affiliation | NRP | + + + | Race | White | + + + | Ethnic Group | Not or | + + + Author + + + | Author | [facility] | + + + | Organization | [facility] | + + + | Address | Unknown | + + + | Phone | Unavailable | + + + Support + + + + + | Name | Relationship | Address | Phone | + + + + + | Alanna Merino | DAT | [address] | | | | | [address] | | | | | [address] | | + + + + + Care Team Providers + +------+ + | Care Saw Tailer Name | Role | Phone | + +------+ + | No Pcp Per Patient | PCP | Unavailable | + +------+ + Encounter Details +--------+ + + + + | Date | Type | Department | Care Team | Description | +--------+ + + + + | 11/22/ | Documentati | [facility] | Deion Sommer, | | | 2019 | on | [facility] [place] | [address] | | | | | [facility] | [address] | | | | | [address] | [place], [place] | | | | | [place] | [address] | | | | | [facility], | [phone] | | | | | floor [place], [place] | | | | | | [address] | | | | | | [phone] | | | +--------+ + + + + Social History + + + +--------+------+ | Tobacco Use | Types | Packs/Day | Years | Date | | | | | Used | | + + + +--------+------+ | Current Every Day | Cigarettes | 0.5 | | | | Smoker | | | | | + + + +--------+------+ + + +---------+ + | Alcohol Use | Drinks/Week | oz/Week | Comments | + + +---------+ + | Not Asked | | | | + + +---------+ + + + + | Sex Assigned at | Date Recorded | | | | + + + | Not on file | | + + + documented as of this encounter Functional Status + + + + | Functional Status | Response | Date of Assessment | + + + + | Because of a physical, mental, or emotional | No | 10/10/2018 | | condition, do you have serious difficulty | | | | doing errands alone such as visiting the | | | | doctor? | | | + + + + + + + + | Cognitive Status | Response | Date of Assessment | + + + + | Because of a physical, mental, or emotional | No | 10/10/2018 | | condition, do you have serious difficulty | | | | concentrating, remembering, or making | | | | decisions? (5 years old or older) | | | + + + + documented as of this encounter Plan of Treatment Not on filedocumented as of this encounter Visit Diagnoses Not on filedocumented in this encounter"
--- OUTSIDE RECORDS SUMMARY | ~2020-03-03 | XMS | Encounter Summary ---
Demographics + + + | Address | [address] | | | [place] [address] | + + + | Home Phone | | + + + | Preferred Language | Unknown | + + + | Marital Status | | + + + | Anabaptism Affiliation | Unknown | + + + | Race | White | + + + | Ethnic Group | Not or | + + + Author + + + | Author | [facility] | | | and [place] | + + + | Organization | [facility] | | | [...] [place], [place] | | | | | [address] | | + + + + + | Isabella "Tiki" | ECON | [address] | | | [place] | | [place], [place] | | | | | [address] | | + + + + + Care Team Providers + +------+ + | Care Tax Manager Public Name | Role | Phone | + +------+ + | No, Physician | PCP | Unavailable | + +------+ + Reason for Visit + + + | Reason | Comments | + + + | Under Treatment | | + + + Encounter Details +--------+ + + + + | Date | Type | Department | Care Team | Description | +--------+ + + + + | 05/30/ | [facility] | [facility] | Carly Jaime | Basal cell carcinoma | | 2019 | Encounter | MED CTR RADIATION | MD Paulette [address] | (BCC) of skin of | | | | ONCOLOGY CLINIC [address] | [place], [place] | neck (Primary Dx) | | | | [facility] | [address] | | | | | [place] [address] | | | | | | [phone] | | | +--------+ + + + [...] + + documented as of this encounter Last Filed Vital Signs + + + + + | Vital Sign | Reading | Time Taken | Comments | + + + + + | Blood Pressure | 155/82 | 05/30/2019 11:03 AM | | | | | PST | | + + + + + | Pulse | 58 | 05/30/2019 11:03 AM | | | | | PST | | + + + + + | Temperature | 36 C (96.8 F) | 05/30/2019 11:03 AM | | | | | PST | | + + + + + | Respiratory Rate | 16 | 05/30/2019 11:03 AM | | | | | PST | | + + + + + | Oxygen Saturation | - | - | | + + + + + | Inhaled Oxygen | - | - | | | Concentration | | | | + + + + + | Weight | 85.6 kg (188 lb 11.4 | 05/30/2019 11:03 AM | | | | oz) | PST | | + + + + + | Height | - | - | | + + + + + | Body Mass Index | 27.32 | 12/27/2018 9:52 AM | | | | | PDT | | + + + + + documented in this encounter Medications at Time of Discharge + + + +---------+ + + | Medication | Sig | Dispensed | Refills | Start | End Date | | | | | | Date | | + + + +---------+ + + | aspirin 325 mg | Take 325 mg by mouth | | 0 | | | | tablet | Daily. | | | | | + + + +---------+ + + | atorvaSTATin | Take 40 mg by mouth | | 0 | | | | (LIPITOR) 40 mg | nightly. | | | | | | tablet | | | | | | + + + +---------+ + + | cholecalciferol | Take 25 mcg by mouth | | 0 | | | | (VITAMIN D-3) 25 mcg | 2 times daily. | | | | | | (1,000 units) | | | | | | | tablet | | | | | | + + + +---------+ + + | | Apply to area twice | 30 g | 2 | 05/30/20 | | | lidocaine-prilocaine | daily | | | 19 | | | (EMLA) | | | | | | | creamIndications: | | | | | | | Basal cell carcinoma | | | | | | | (BCC) of skin of | | | | | | | neck | | | | | | + + + +---------+ + + | omeprazole | Take 20 mg by mouth | | 0 | | | | (PRILOSEC) 20 mg | every morning | | | | | | capsule | (before breakfast). | | | | | + + + +---------+ + + | lisinopril | Take 20 mg by mouth | | 0 | | | | (PRINIVIL, ZESTRIL) | Daily. | | | | 0 | | 10 mg tablet | | | | | | + + + +---------+ + + documented as of this encounter Progress Notes Carly Jaime MD - 05/30/2019 12:00 PM PST Radiation Oncology Weekly On Treatment Note Diagnosis: ICD-10-CM ICD-9-CM 1. Basal cell carcinoma (BCC) of skin of neck C44.41 173.41 Reason for visit: On treatment evaluation Radiation technical factors: Dose Delivered Dose Planned Fractions Delivered 3025 cGy 5500 cGy 05/23 Images were reviewed this week and results of the review have been recorded in ARIA. Corre ctions were applied as necessary. No Known Allergies Current Outpatient Medications on File Prior to Encounter Medication Sig Dispense Refill aspirin 325 mg tablet Take 325 mg by mouth Daily. atorvaSTATin (LIPITOR) 40 mg tablet Take 40 mg by mouth nightly. cholecalciferol (VITAMIN D-3) 25 mcg (1,000 units) tablet Take 25 mcg by mouth 2 times daily. lisinopril (PRINIVIL, ZESTRIL) 10 mg tablet Take 20 mg by mouth Daily. omeprazole (PRILOSEC) 20 mg capsule Take 20 mg by mouth every morning (before breakfast ). No current facility-administered medications on file prior to encounter. Vitals: 05/30/19 1103 BP: 155/82 Pulse: 58 Resp: 16 Temp: 36 C (96.8 F) Weight: 85.6 kg (188 lb 11.4 oz) Physical Exam Constitutional: He appears well-developed and well-nourished. Neurological: He is alert. Skin: No rash noted. There is erythema (Mild erythema, no desquamation). Psychiatric: He has a normal mood and affect. Physician Assessment: 05/30/19: Guilherme reports increasing pain in the treatment area. There is mild erythema and no desquamation. His is taking very good care of the skin, using emollient lotion regu larly. He has hypersensitivity over the neck. Also reports moderate fatigue. Disposition: Continue radiation treatment as planned. Continue emollient lotion for skin care Add EMLA cream for pain control. Carly Jaime MD Radiation Oncologist documented in this encounter Plan of Treatment +--------+ + + + + | Date | Type | Specialty | Care Team | Description | +--------+ + + + + | 03/26/ | Appointment | Radiation Oncology | Papito Alvarez MD | | | 2019 | | | [address] | | | | | | [place] | | | | | | [address] | | | | | | | | +--------+ + + + + documented as of this encounter Visit Diagnoses + + | Diagnosis | + + | Basal cell carcinoma (BCC) of skin of neck - Primary | + + documented in this encounter
--- OUTSIDE RECORDS SUMMARY | ~2020-03-03 | XMS | Encounter Summary ---
Demographics + + + | Address | [address] | | | [place] [address] | + + + | Home Phone | | + + + | Preferred Language | Unknown | + + + | Marital Status | | + + + | Methodist Affiliation | Unknown | + + + | Race | White | + + + | Ethnic Group | Not or | + + + Author + + + | Author | [facility] | | | and [place] | + + + | Organization | [facility] | | | and [place] | + + + | Address | Unknown | + + + | Phone | Unavailable | + + + Support + + + + + | Name | Relationship | Address | Phone | + + + + + | Alanna Merino | ECON | [address] | | | | | [place], [place] | | | | | [address] | | + + + + + | Isabella "Tiki" | ECON | [address] | | | [place] | | [place], [place] | | | | | [address] | | + + + + + Care Team Providers + +------+ + | Care Wood Carving Lathe Operator Name | Role | Phone | + +------+ + | Alen Bolanos MD | PCP | | + +------+ + Reason for Visit + +--------+ + | Reason | Onset | Comments | | | Date | | + +--------+ + | IDT Note | 08/08/ | | | | 2018 | | + +--------+ + Encounter Details +--------+ + + + + | Date | Type | Department | Care Team | Description | +--------+ + + + + | 08/08/ | Telephone | [facility] | Ashu Singh DO | IDT Note | | 2018 | | MED CTR RADIATION | [address] [facility] | | | | | ONCOLOGY CLINIC [address] | [place], [place] | | | | | [facility] | [address] | | | | | [place] [address] | | | | | | [phone] | | | +--------+ + + + [...] + + documented as of this encounter Miscellaneous Notes Telephone Encounter - Danielle Robb RN - 08/08/2018 1:39 PM PST [facility] Interdisciplinary Team Navigational Checklist ? Top Priority Discipline EPIC Order Entered Consult Scheduled Consult Complete Comments: *Medical Oncology x *Radiation Oncology Dr. Singh *Patient Navigation *Nurse Navigator *Social Service Survivorship Nurse Breast Health Genetics Surgical Input *Nursing assessment *Pharmacy assessment Nutrition Rehab: PT OT Speech & Language Palliative Care Clinical Trials Involvement Building Mover Visit Financial Assistance Interdisciplinary Consults Completed Date: documented in this en counter Plan of Treatment +--------+ + + + + | Date | Type | Specialty | Care Team | Description | +--------+ + + + + | 03/26/ | Appointment | Radiation Oncology | Papito Alvarez MD | | | 2020 | | | [address] | | | | | | [place] | | | | | | [address] | | | | | | | | +--------+ + + + + documented as of this encounter Visit Diagnoses Not on filedocumented in this encounter
--- OUTSIDE RECORDS SUMMARY | ~2020-03-03 | XMS | Encounter Summary ---
Demographics + + + | Address | [address] | | | [place] [address] | + + + | Home Phone | | + + + | Preferred Language | Unknown | + + + | Marital Status | | + + + | Hindu Affiliation | Unknown | + + + | Race | White | + + + | Ethnic Group | Not or | + + + Author + + + | Author | [facility] | | | and [place] | + + + | Organization | [facility] | | | [...] [place], [place] | | | | | [address] | | + + + + + | Isabella "Tiki" | ECON | [address] | | | [place] | | [place], [place] | | | | | [address] | | + + + + + Care Team Providers + +------+ + | Care Can Closing Machine Tender Name | Role | Phone | + +------+ + | No, Physician | PCP | Unavailable | + +------+ + Encounter Details +--------+ + + + + | Date | Type | Department | Care Team | Description | +--------+ + + + + | 05/04/ | Hospital | [facility] | Yeni Carly | | | 2019 | Encounter | MED CTR RADIATION | MD Paulette [address] | | | | | ONCOLOGY [address] | [facility] [place], [place] | | | | | [place], | [address] | | | | | [place] [address] | | | | | | [phone] | | | +--------+ + + + [...] + + documented as of this encounter Medications at Time of Discharge + + + +---------+--------+ + | Medication | Sig | Dispensed | Refills | Start | End Date | | | | | | Date | | + + + +---------+--------+ + | aspirin 325 mg | Take 325 mg by mouth | | 0 | | | | tablet | Daily. | | | | | + + + +---------+--------+ + | atorvaSTATin | Take 40 mg by mouth | | 0 | | | | (LIPITOR) 40 mg | nightly. | | | | | | tablet | | | | | | + + + +---------+--------+ + | cholecalciferol | Take 25 mcg by mouth | | 0 | | | | (VITAMIN D-3) 25 mcg | 2 times daily. | | | | | | (1,000 units) | | | | | | | tablet | | | | | | + + + +---------+--------+ + | omeprazole | Take 20 mg by mouth | | 0 | | | | (PRILOSEC) 20 mg | every morning | | | | | | capsule | (before breakfast). | | | | | + + + +---------+--------+ + | lisinopril | Take 20 mg by mouth | | 0 | | | | (PRINIVIL, ZESTRIL) | Daily. | | | | 0 | | 10 mg tablet | | | | | | + + + +---------+--------+ + documented as of this encounter Plan [...] [place] | | | | | | [id number] | | | | | | | | +--------+ + + + + documented as of this encounter Visit Diagnoses Not on filedocumented in this encounter
--- OUTSIDE RECORDS SUMMARY | ~2020-03-03 | XMS | Encounter Summary ---
Demographics + + + | Address | [address] | | | [place] [address] | + + + | Home Phone | | + + + | Preferred Language | Unknown | + + + | Marital Status | | + + + | Buddhism Affiliation | Unknown | + + + | Race | White | + + + | Ethnic Group | Not or | + + + Author + + + | Author | [facility] | | | and [place] | + + + | Organization | [facility] | | [...] [place], [place] | | | | | [address] | | + + + + + | Isabella "Tiki" | ECON | [address] | | | [place] | | [place], [place] | | | | | [address] | | + + + + + Care Team Providers + +------+ + | Care Athletic Instructor Name | Role | Phone | + [...] + + | 08/08/ | Telephone | [facility] | Ashu Singh DO | IDT Note | | 2018 | | MED CTR RADIATION | [address] [facility] | | | | | ONCOLOGY CLINIC [address] | [place], [place] | | | | | [facility] | [address] | | | | | [place] [address] | | | | | | [phone] | | | +--------+ + + + [...] Robb RN - 08/08/2018 1:[address] [facility] Interdisciplinary Team Navigational Checklist ? Top Priority Discipline EPIC Order Entered Consult Scheduled Consult Complete Comments: *Medical Oncology x *Radiation Oncology Dr. Singh *Patient Navigation *Nurse Navigator *Social Service Survivorship Nurse Breast Health Genetics Surgical Input *Nursing assessment *Pharmacy assessment Nutrition Rehab: PT OT Speech & Language Palliative Care Clinical Trials Involvement Decorator Inspector Visit Financial Assistance Interdisciplinary Consults Completed Date: [...]
--- OUTSIDE RECORDS SUMMARY | ~2020-03-03 | XMS | Encounter Summary ---
Demographics + + + | Address | [address] | | | [place] [address] | + + + | Home Phone | | + + + | Preferred Language | Unknown | + + + | Marital Status | | + + + | Taoism Affiliation | Unknown | + + + | Race | White | + + + | Ethnic Group | Not or | + + + Author + + + | Author | [facility] | | | and [place] | + + + | Organization | [facility] | | | and [place] | + + + | Address | Unknown | + + + | Phone | Unavailable | + + + Support + + + + + | Name | Relationship | Address | Phone | + + + + + | Alanna Merino | ECON | [address] | | | | | [place], [place] | | | | | [address] | | + + + + + | Isabella "Tiki" | ECON | [address] | | | [place] | | [place], [place] | | | | | [address] | | + + + + + Care Team Providers + +------+ + | Care Mental Health Program Specialist Name | Role | Phone | + +------+ + | Alen Bolanos MD | PCP | | + +------+ + Reason for Visit +--------+--------+ + | Reason | Onset | Comments | | | Date | | +--------+--------+ + | Other | 10/06/ | | | | 2019 | | +--------+--------+ + Encounter Details +--------+ + + + + | Date | Type | Department | Care Team | Description | +--------+ + + + + | 10/06/ | Telephone | [facility] | Ashu Singh, DO | Other | | 2019 | | MED CTR MEDICAL | [address] [facility] | | | | | ONCOLOGY CLINIC [address] | [place] | | | | | [address] | [id number] | | | | | [place] [address] | | | | | | [phone] | | | +--------+ + + + [...] this encounter Miscellaneous Notes Telephone Encounter - Emmy Vanessa RN - 10/06/2018 4:23 PM PDTDaughter Tiki notif ied that dermatology was notified of need to cancel appointment, Tiki verbalizes her appre ciation for all [facility], "everyone from the receptio n to you guys have all been so kind." No further questions or concerns at this time. Electro nically signed by Emmy Vanessa RN at 10/06/2018 4:26 PM PDTTelephone Encounter - Emmy Gordon RN - 10/06/2018 4:15 PM PDTAccording to referral, it appears that Dr. Singh referred him to [facility], call was placed to their office to notify them that sirisha machado would not be there on Tuesday for appointment, no answer as office was closed left det imer message with call back number.Electronically signed by Emmy Vanessa RN at 2018 4:17 PM PDTTelephone Encounter - Cody Sharif - 10/06/2018 3:39 PM PDTPatients chantelle veliz called, pt had a massive stroke last night and a small one today. He is @ [facility] now pending transfer to [facility]. Patient is scheduled to see a derm on Tuesday, she doesn't know who it is but if there is an y way we can contact them and tell them he won't be coming the family would appreciate it. She said the doctor's @ [facility] think the RAD broke up a clot in his neck causing the stroke [phone] if you need to call her. documented in this encou nter Plan of Treatment +--------+ + + + + | Date | Type | Specialty | Care Team | Description | +--------+ + + + + | 03/26/ | Appointment | Radiation Oncology | Papito Alvarez MD | | | 2019 | | | [address] | | | | | | [place] | | | | | | [id number] | | | | | | | | +--------+ + + + + documented as of this encounter Visit Diagnoses Not on filedocumented in this encounter
--- OUTSIDE RECORDS SUMMARY | ~2020-03-03 | XMS | Encounter Summary ---
Demographics + + + | Address | [address] | | | [place] [address] | + + + | Home Phone | | + + + | Preferred Language | Unknown | + + + | Marital Status | | + + + | Baptist Affiliation | NRP | + + + [...] [place] | | | | | [address] | | + + + + + Care Team Providers + +------+ + | Care Jointer Submarine Cable Name | Role | Phone | + +------+ + PCP | Unavailable | + +------+ + Encounter Details +--------+ + + + + | Date | Type | Department | Care Team | Description | +--------+ + + + + | 05/01/ | Results | Medical | Ward Jimenez, | | | 2001 | Only | Dermatology [address] | [address] | | | | | [address] | [facility] [place] | | | | | Mailcode: OP06 | [address] | | | | | Outpatient Clinic | [phone] | | | | | [facility], Room [address] | | | | | | [place], [place] | | | | | | [address] | | | | | | [phone] | | | +--------+ + + + [...] Not on filedocumented as of this encounter Procedures + +--------+ + + + | Procedure Name | Priori | Date/Time | Associated Diagnosis | Comments | | | ty | | | | + +--------+ + + + | DERMATOPATHOLOGY(WET | Routin | 2002 | | Results for this | | [place]) | e | | | procedure are in the | | | | | | results section. | + +--------+ + + + documented in this encounter Results DERMATOPATHOLOGY(WET [place]) (2002) + + + + + + | Component | Value | Ref Range | Performed | Pathologist | | | | | At | Signature | + + + + + + | DERMATOPATH | SOURCE OF SPECIMEN:A | | | | | OLOGY(WET | FIRST TISSUE LEVEL IV | | | | | MNT) | [id number] OF | | | | | | SPECIMEN:B FIRST TISSUE | | | | | | [place] [address] | | | | | | CLINICAL DESCRIPTION:A. | | | | | | Punch, lt. neck (two | | | | | | punches); lt. neck h/o | | | | | | BCC; R/O BCC.B. | | | | | | Shave, lt. forehead; | | | | | | changing mole; R/O BCC. | | | | | | GROSS DESCRIPTION:A. | | | | | | Left neck punch, first | | | | | | 0.4 x 0.3 cm, bisected. | | | | | | Second punch, 0.4 x0.4 | | | | | | cm, inked, and | | | | | | bisected.B. Left | | | | | | forehead, shave, 0.6 x | | | | | | 0.4 cm, bisected. | | | | | | MICROSCOPIC | | | | | | DESCRIPTION:A. There | | | | | | are aggregates of cells | | | | | | with hyperchromatic | | | | | | nuclei, scantcytoplasm, | | | | | | palisading of the | | | | | | peripheral nuclei, and | | | | | | an increased amount | | | | | | offibroblasts and | | | | | | collagen bundles | | | | | | surrounding the | | | | | | epithelial aggregates. | | | | | | B. There is epidermal | | | | | | hyperplasia with horn | | | | | | pseudocysts, | | | | | | interweaving ofthe rete | | | | | | and nuclei of uniform | | | | | | size and shape. A | | | | | | lymphohistiocyticinfiltr | | | | | | ate is present within | | | | | | the dermis and the | | | | | | epithelium. DIAGNOSIS:A: | | | | | | BASAL CELL CARCINOMA, | | | | | | SCLEROSING TYPE | | | | | | X2.NOTE: The left neck | | | | | | basal cell carcinoma is | | | | | | extensive, | | | | | | prominentlyinvolving the | | | | | | surgical margins of the | | | | | | deep punch specimen. B: | | | | | | SEBORRHEIC KERATOSIS | | | | | | WITH INFLAMMATION. | | | | | | DAVID/jyi05/04/2002Renderin | | | | | | g Diagnostician: | | | | | | Florencio Nagy Jr., | | | | | | AshPathologistElectroni | | | | | | mirna Signed | | | | | | 05/04/2002Comment: | | | | | | SOURCE OF SPECIMEN: | | | | | | FIRST TISSUE LEVEL IV | | | | | | 23788-NGWTI TISSUE LEVEL | | | | | | [place] [address] | | | | + + + + + + + + | Specimen | + + | | + + + + + + + | Performing | Address | City/State/Zipcode | Phone Number | | Organization | | | | + + + + + | [facility] | [id number] | [place] [address] | | | DERMATOPATHOLOGY | [address] | | | + + + + + documented in this encounter Visit Diagnoses Not on filedocumented in this encounter"
--- OUTSIDE RECORDS SUMMARY | ~2020-03-03 | XMS | Encounter Summary ---
Demographics + + + | Address | [address] | | | [place] [address] | + + + | Home Phone | | + + + | Preferred Language | Unknown | + + + | Marital Status | | + + + | Sabianism Affiliation | Unknown | + + + | Race | White | + + + | Ethnic Group | Not or | + + + Author + + + | Author | [facility] | | | and [place] | + + + | Organization | [facility] | | [...] [place], [place] | | | | | [address] | | + + + + + | Isabella "Tiki" | ECON | [address] | | | [place] | | [place], [place] | | | | | [address] | | + + + + + Care Team Providers + +------+ + | Care Director Of Corporate Strategy Name | Role | Phone | + +------+ + | No, Physician | PCP | Unavailable | + +------+ + Encounter Details +--------+ + + + + | Date | Type | Department | Care Team | Description | +--------+ + + + + | 06/08/ | Hospital | [facility] | Yeni Carly | | | 2019 | Encounter | MED CTR RADIATION | MD Paulette [address] | | | | | ONCOLOGY [address] | [facility] [place], [place] | | | | | [place], | [address] | | | | | [place] [address] | | | | | | [phone] | | | +--------+ + + + [...] 2019 | | | [address] | | | | | | [place] | | | | | | [address] | | | | | | | | +--------+ + + + + documented as of this encounter Visit Diagnoses Not on filedocumented in this encounter
--- OUTSIDE RECORDS SUMMARY | ~2020-03-03 | XMS | Encounter Summary ---
Demographics + + + | Address | [address] | | | [place] [address] | + + + | Home Phone | | + + + | Preferred Language | Unknown | + + + | Marital Status | | + + + | Catholic Affiliation | Unknown | + + + | Race | White | + + + | Ethnic Group | Not or | + + + Author + + + | Author | [facility] | | | and [place] | + + + | Organization | [facility] | | | [...] [place], [place] | | | | | [address] | | + + + + + | Isabella "Tiki" | ECON | [address] | | | [place] | | [place], [place] | | | | | [address] | | + + + + + Care Team Providers + +------+ + | Care Weigher And Crusher Name | Role | Phone | + [...] | , | Eddi, | | | Services | [...] | | | | carcinoma | [place] [address] | [place], [place] | | | | | (BCC) of | Phone: | [address] | | | | | skin of neck | [phone] | Phone: | | | | | | Fax: | [phone] | | | | | | [phone] | Fax: | | | | | | | [phone] | +--------+ + + + + + Encounter Details +--------+ + + + + | Date | Type | Department | Care Team | Description | +--------+ + + + + | 10/02/ | Hospital | [facility] | Ashu Singh DO | Recurrent basal cell | | 2019 | Encounter | MED CTR RADIATION | [address] | carcinoma (Primary | | | | ONCOLOGY CLINIC [address] | [place] | Dx); Basal cell | | | | [address] | [id number] | carcinoma (BCC) of | | | | [facility] [place] [address] | | skin of neck | | | | [phone] | | | +--------+ + + + [...] documented as of this encounter Progress Notes Danielle Robb RN - 10/02/2018 4:32 PM PDTPatient completes radiation today. Patient is scheduled for a three month follow up with Dr. Singh. documented in this encounter Plan of Treatment [...] [place] | | | | | | [id number] | | | | | | | | +--------+ + + + + + + +--------+ + + | Name | Type | Priori | Associated Diagnoses | Order Schedule | | | | ty | | | + + +--------+ + + | Dermatology, | Outpatient | Routin | Recurrent basal | Ordered: 10/02/2018 | | External - AMB | Referral | e | cell carcinoma | | | Referral | | | Basal cell carcinoma | | | | | | (BCC) of skin of | | | | | | neck | | + + +--------+ + + documented as of this encounter Visit Diagnoses + + | Diagnosis | + + | Recurrent basal cell carcinoma - Primary Basal cell carcinoma of skin, site | | unspecified | + + | Basal cell carcinoma (BCC) of skin of neck | + + documented in this encounter
--- OUTSIDE RECORDS SUMMARY | ~2020-03-03 | XMS | Clinical Summary ---
Demographics + + + | Address | [address] | | | [place] [address] | + + + | Home Phone [...] + + + | Author | [facility] | | | and [place] | + + + | Organization | [facility] | | [...] [place], [place] | | | | | [address] | | + + + + + | Isabella "Tiki" | ECON | [address] | | | [place] | | [place], [place] | | | | | [address] | | + + + + + Care Team Providers + +------+ + | Care Mixer Operator Hot Metal Name | Role | Phone | + +------+ + | No, Physician | PCP | Unavailable | + +------+ + Allergies No Known Allergies Medications + + + +---------+------+------+-------+ | Medication | Sig | Dispensed | Refills | Star | End | Statu | | | | | | t | Date | s | | | | | | Date | | | + + + +---------+------+------+-------+ | omeprazole | Take 20 mg by mouth | | 0 | | | Activ | | (PRILOSEC) 20 mg | every morning | | | | | e | | capsule | (before breakfast). | | | | | | + + + +---------+------+------+-------+ | atorvaSTATin | Take 40 mg by mouth | | 0 | | | Activ | | (LIPITOR) 40 mg | nightly. | | | | | e | | tablet | | | | | | | + + + +---------+------+------+-------+ | aspirin 325 mg | Take 325 mg by mouth | | 0 | | | Activ | | tablet | Daily. | | | | | e | + + + +---------+------+------+-------+ | cholecalciferol | Take 25 mcg by mouth | | 0 | | | Activ | | (VITAMIN D-3) 25 mcg | 2 times daily. | | | | | e | | (1,000 units) | | | | | | | | tablet | | | | | | | + + + +---------+------+------+-------+ | | Apply to area twice | 30 g | 2 | 05/05 | | Activ | | lidocaine-prilocaine | daily | | | 01/20 | | e | | (EMLA) | | | | 19 | | | | creamIndications: | | | | | | | | Basal cell carcinoma | | | | | | | | (BCC) of skin of | | | | | | | | neck | | | | | | | + + + +---------+------+------+-------+ +---+ + | | Additional | | | InformationPatient | | | not taking. Reported | | | on 12/24/2019 10:43 | | | AM | +---+ + + + +---+---+------+---+-------+ | buPROPion | take 1 tablet by | | 0 | 03/2 | | Activ | | (WELLBUTRIN XL) 150 | mouth once daily | | | 3/20 | | e | | mg 24 hr tablet | | | | 20 | | | + + +---+---+------+---+-------+ | lisinopril | TAKE 1 TABLET BY | | 0 | 02/1 | | Activ | | (PRINIVIL, ZESTRIL) | MOUTH EVERY DAY | | | 1/20 | | e | | 20 mg tablet | | | | 20 | | | | | ... (REFER | | | | | | | | TO PRESCRIPTION | | | | | | | | NOTES). | | | | | | + + +---+---+------+---+-------+ Active Problems + + + | Problem | Noted Date | + + + | Recurrent basal cell carcinoma | 01/09/2019 | + + + | Preventative health care | 12/07/2018 | + + + + + | Overview: PSA Date Results | | 11/21/18 0.71 | + + + + + | Carotid stenosis, left | 10/09/2018 | + + + + + | Overview: Last Assessment & Plan: | | S/P stent placement 10/09/2018 | | - ASA 325 indefinitely | | - 75mg clopidogrel x 30 days. | | - Atorvastatin 40mg daily | | - Monitor for bradycardia post stent placement | | - Monitor groin site | | - Flat x4 hours | | - IVF 75mL/hour until taking reliable PO | | - SBP <140 | + + + + + | Essential hypertension | 10/09/2018 | + + + + + | Overview: Last Assessment & Plan: Home lisinopril HCTZ | | combination held on presentation due to watershed ischemia. On | | Nicardipine post procedure- Restart lisinopril 10mg- Continue to | | hold Hydrochlorothiazide- Down titrate nicardipine as able with | | close watch for hypotension as would not want to hypoperfuse | | intracranially either. | + + + + + | Hematuria | 10/09/2018 | + + + + + | Overview: Last Assessment & Plan: Painless, Started , | | 4/5. Has been intermittent. [place]-dark red blood observed, no | | clots. UA with isolated red cells. Improving with hydration per | | patient and . - Bladder scan Q6H, straight cath PRN for PVR | | >450- Discussed with urology - unless passing obvious clots, | | considered as outpatient hematuria workup. Recommended following | | up UA, bladder scan. If apollo clots observed, can consider at CT | | urogram. | + + + + + | Urinary frequency | 10/09/2018 | + + + + + | Overview: Last Assessment & Plan: | | Monitor UOP, may need to consider checking urine sodium. | | - PVR for retention/incomplete voiding. | + + + + + | Acute ischemic left ICA stroke | 10/06/2018 | + + + + + | Overview: Last Assessment & Plan: | | SBP <140 | | PT,OT | | See Stent placement below | | SW stroke protocol | | Continue telemetry | | Outpatient stroke follow-up 1 month | + + Resolved Problems + + + + | Problem | Noted | Resolved | | | Date | Date | + + + + | Malignant neoplasm of skin | 10/18/19 | | | | 19 | 9 | + + + + + + | Overview: [id number] care recs 10/09:Cleanse wound gently with | | warm wet gauze. Narciso Pena periwound skin with Cavilon skin prep. | | Apply SpandGel pad to reddened area (can place SpandGel in the | | fridge for cool soothing temperature). SpandGel can be found on | | 13A or can be ordered from [employer]. Change PRN dryness.May | | consider topical Lidocaine gel for pain relief, but do not use | | SpandGel if using Lidocaine. Cover Lidocaine gel with Telfa non | | adherent dressing. | + + Encounters +--------+ + + + + | Date | Type | Specialty | Care Team | Description | +--------+ + + + + | 12/26/ | Telephone | Urology | Radhames Rdz | Other (Labs) | | 2019 | | | MD Dequan | | +--------+ + + + + | 12/23/ | Hospital | Radiation Oncology | Silke Garcia | Recurrent basal cell | | 2019 | Encounter | | EMILY Sykes | carcinoma (Primary | | | | | | Dx) | +--------+ + + + + | 12/23/ | Orders Only | Radiation Oncology | Carly Jaime | Recurrent basal cell | | 2019 | | | MD Paulette | carcinoma (Primary | | | | | | Dx) | +--------+ + + + + from Last 3 Months Family History + + +------+ + | Medical History | Relation | Name | Comments | + + +------+ + | Cancer | Father | | | + + +------+ + + +------+ + + | Relation | Name | Status | Comments | + +------+ + + | Father | | | | + +------+ + + | Mother | | Alive | | + +------+ + + Social History + +-------+ +--------+ [...] + + Last Filed Vital Signs + + + + + | Vital Sign | Reading | Time Taken | Comments | + + + + + | Blood Pressure | 184/97 | 12/24/2019 10:41 AM | | | | | PDT | | + + + + + | Pulse | 102 | 12/24/2019 10:41 AM | | | | | PDT | | + + + + + | Temperature | 36.8 C (98.2 F) | 12/24/2019 10:41 AM | | | | | PDT | | + + + + + | Respiratory Rate | 18 | 12/24/2019 10:41 AM | | | | | PDT | | + + + + + | Oxygen Saturation | 97% | 12/24/2019 10:41 AM | | | | | PDT | | + + + + + | Inhaled Oxygen | - | - | | | Concentration | | | | + + + + + | Weight | 85.4 kg (188 lb 4.4 | 12/24/2019 10:41 AM | | | | oz) | PDT | | + + + + + | Height | 177 cm (5' 9.69") | 12/27/2018 9:52 AM | | | | | PDT | | + + + + + | Body Mass Index | 27.26 | 12/27/2018 9:52 AM | | | | | PDT | | + + + + + Plan of Treatment +--------+ + + + + | Date | Type | Specialty | Care Team | Description | +--------+ + + + + | 03/26/ | Appointment | Radiation Oncology | Papito Alvarez MD | | | 2020 | | | [address] | | | | | | [place] | | | | | | [address] | | | | | | | | +--------+ + + + + + + + + + | Health Maintenance | Due Date | Last | Comments | | | | Done | | + + + + + | Hepatitis C | | | | | Screening | 4 | | | + + + + + | Med Mgmt: Cr | | | | | | 4 | | | + + + + + | Med Mgmt: K | | | | | | 4 | | | + + + + + | Med Mgmt: Vit D | | | | | | 4 | | | + + + + + | Medication | | | | | Management | 4 | | | + + + + + | Vaccine: | | | | | Dtap/Tdap/Td (1 - | 3 | | | | Tdap) | | | | + + + + + | Colorectal Cancer | | | | | Screening | 4 | | | | (Colonoscopy) | | | | + + + + + | Vaccine: Zoster (1 | | | | | of 2) | 4 | | | + + + + + | Adult Annual | | | | | Wellness Visit | 9 | | | + + + + + | AAA Screening | | 12/13/19 | | | | 9 | 19, | | | | | 07/12/19 | | | | | 19 | | + + + + + | Vaccine: | | | | | Pneumococcal 65+ (1 | 9 | | | | of 1 - PPSV23) | | | | + + + + + | Vaccine: Influenza | | | | | (#1) | 0 | | | + + + + + Results Not on filefrom Last 3 Months Insurance + +--------+ +--------+ +---------+--------+ | Payer | Benefi | Subscriber | Effect | Phone | Address | Type | | | t Plan | ID | isaura | | | | | | / | | Dates | | | | | | Group | | | | | | + +--------+ +--------+ +---------+--------+ | MEDICARE | MEDICA | [id number] | | [phone] | | Medica | | | RE | | 019-Pr | 5 | | re | | | PART A | | esent | | | | | | AND B | | | | | | + +--------+ +--------+ +---------+--------+ | | TRICAR | [id number] | | [phone] | | Indemn | | | E FOR | | 019-Pr | 0 | | ity | | | LIFE | | esent | | | | + +--------+ +--------+ +---------+--------+ + +--------+ +--------+ + + | Guarantor Name | Accoun | Relation to | Date | Phone | Billing Address | | | t Type | Patient | of | | | | | | | | | | + +--------+ +--------+ + + | Guilherme Merino | Person | Self [birth year] | [address] | | | al/Fam | | 1955 | [phone] | [place] | | | fr[place]isca | | | 4 (Home) | [phone] | + +--------+ +--------+ + + Advance Directives + + + + + | Type | Date Recorded | Patient | Explanation | | | | Reverser | | + + + + + | Power of | | | | | Food Order Delivery Runner | | | | + + + + + | Advance | | | | | Directive | | | | + + + + +
--- OUTSIDE RECORDS SUMMARY | ~2020-03-03 | XMS | Encounter Summary ---
Demographics + + + | Address | [address] | | | [place] [address] | + + + | Home Phone | | + + + | Preferred Language | Unknown | + + + | Marital Status | | + + + | Denominational Affiliation | Unknown | + + + | Race | White | + + + | Ethnic Group | Not or | + + + Author + + + | Author | [facility] | | | and [place] | + + + | Organization | [facility] | | | [...] [place], [place] | | | | | [address] | | + + + + + | Isabella "Tiki" | ECON | [address] | | | [place] | | [place], [place] | | | | | [address] | | + + + + + Care Team Providers + +------+ + | Care Supervisor Sawing And Assembly Name | Role | Phone | + [...] + + | 03/29/ | Telephone | [facility] | Ashu Singh, DO | Appointment | | 2019 | | [facility] | [address] [facility] | | | | | [facility]OGY CL[facility] [address] | [place] | | | | | [address] | [address] | | | | | [place] [address] | | | | | | [phone] | | | +--------+ + + + [...] [place] | | | | | | [id number] | | | | | | | | +--------+ + + + + documented as of this encounter Visit Diagnoses Not on filedocumented in this encounter
--- OUTSIDE RECORDS SUMMARY | ~2020-03-03 | XMS | Encounter Summary ---
Demographics + + + | Address | [address] | | | [place] [address] | + + + | Home Phone | | + + + | Preferred Language | Unknown | + + + | Marital Status | | + + + | Taoism Affiliation | Unknown | + + + | Race | White | + + + | Ethnic Group | Not or | + + + Author + + + | Author | [facility] | | | and [place] | + + + | Organization | [facility] | | | and [...] [place], [place] | | | | | [address] | | + + + + + | Isabella "Tiki" | ECON | [address] | | | [place] | | [place], [place] | | | | | [address] | | + + + + + Care Team Providers + +------+ + | Care Administrative Assistant Office Manager Name | Role | Phone | + +------+ + | No, Physician | PCP | Unavailable | + +------+ + Encounter Details +--------+ + + + + | Date | Type | Department | Care Team | Description | +--------+ + + + + | 12/21/ | Imaging | [facility] | Provider, | | | 2019 | Exam | [facility] | MD [address] | | | | | IMAGING [address] | [address] | | | | | [address] [facility] | [place] [address] | | | | | [place] [address] | | | | | | [phone] | | | +--------+ + + + [...] [place] | | | | | | [address] | | | | | | | | +--------+ + + + + documented as of this encounter Procedures + +--------+ + + + | Procedure Name | Priori | Date/Time | Associated Diagnosis | Comments | | | ty | | | | + +--------+ + + + | CT ABDOMEN PELVIS W | Routin | 12/12/2018 | | Results for this | | WO CONTRAST | e | 12:00 AM | | procedure are in the | | | | PDT | | results section. | + +--------+ + + + documented in this encounter Results CT Abdomen Pelvis w wo Contrast (12/12/2018 12:00 AM PDT) + + | Specimen | + + [...] | | | + +---------+ + + documented in this encounter Visit Diagnoses Not on filedocumented in this encounter
--- OUTSIDE RECORDS SUMMARY | ~2020-03-03 | XMS | Encounter Summary ---
Demographics + + + | Address | [address] | | | [place] [address] | + + + | Home Phone | | + + + | Preferred Language | Unknown | + + + | Marital Status | | + + + | Synagogue Affiliation | NRP | + + + | Race | White | + + + | Ethnic Group | Not or | + + + Author + + + | Author | [facility] | + + + | Organization | [facility] | + + + | Address | Unknown | + + + | Phone | Unavailable | + + + Support + + + + + | Name | Relationship | Address | Phone | + + + + + | Alanna Merino | DAT | [address] | | | | | [place] | | | | | [address] | | + + + + + Care Team Providers + +------+ + | Care Seaman Name | Role | Phone | + +------+ + PCP | Unavailable | + +------+ + Encounter Details +--------+ + + + + | Date | Type | Department | Care Team | Description | +--------+ + + + + | 05/02/ | Letter-Mark | [facility] | Letter, | Letters | | 2001 | scribed | | Dermatology | | +--------+ + + + + [...] as of this encounter Progress Notes Interface, Contact Lens Manufacturer In - 02/10/2006 1:08 AM PDT May 02, 2002 Dr. Denis Desai Re: Guilherme Merino [id number] Desai, We recently saw Mr. Guilherme Merino, the nice gentleman with a possible recurring basal cell cancer on the left neck and a changing mole on the left forehead. We took biopsies of the neck lesion to determine if there is a cancer on the neck and we removed the changing mole on the forehead. Many thanks for allowing us to help in Mr. Merino's care. We appreciate your referrals very much. Yours truly, Reno Jimenez M.D. Toby A documented in this encounter Plan of Treatment Not on filedocumented as of this encounter Visit Diagnoses Not on filedocumented in this encounter"
--- OUTSIDE RECORDS SUMMARY | ~2020-03-03 | XMS | Encounter Summary ---
Demographics + + + | Address | [address] | | | [place] [address] | + + + | Home Phone | | + + + | Preferred Language | Unknown | + + + | Marital Status | | + + + | Jehovah'S Witness Affiliation | Unknown | + + + | Race | White | + + + | Ethnic Group | Not or | + + + Author + + + | Author | [facility] | | | and [place] | + + + | Organization | [facility] | | | [...] [place], [place] | | | | | [address] | | + + + + + | Isabella "Tiki" | ECON | [address] | | | [place] | | [place], [place] | | | | | [address] | | + + + + + Care Team Providers + +------+ + | Care Title I Director Name | Role | Phone | + [...] | +--------+ + + + + | 09/07/ | Hospital | [facility] | Ashu Singh DO | Recurrent basal cell | | 2019 | Encounter | MED [facility] | [address] | carcinoma (Primary | | | | ONCOLOGY CLINIC [address] | [place] | Dx) | | | | [address] | [address] | | | | | [place] [address] | | | | | | [phone] | | | +--------+ + + + [...] + + + | Blood Pressure | 124/67 | 09/07/2018 10:58 AM | | | | | PST | | + + + + + | Pulse | 73 | 09/07/2018 10:58 AM | | | | | PST | | + + + + + | Temperature | 36.9 C (98.4 F) | 09/07/2018 10:58 AM | | | | | PST | | + + + + + | Respiratory Rate | 16 | 09/07/2018 10:58 AM | | | | | PST | | + + + + + | Oxygen Saturation | 97% | 09/07/2018 10:58 AM | | | | | PST | | + + + + + | Inhaled Oxygen | - | - | | | Concentration | | | | + + + + + | Weight | 82.4 kg (181 lb 10.5 | 09/07/2018 10:58 AM | | | | oz) | PST | | + + + + + | Height | - | - | | + + + + + | Body Mass Index | 26.3 | 08/01/2018 1:01 PM | | | [...] as of this encounter Progress Notes Danielle Robb, RN - 09/07/2018 11:04 AM PSTMet with patient today for nurse education. Ve rbal and written education given to patient regarding general radiation therapy side effects as well as site specific side effects. Reviewed process of OT day for their doctor, all q uestions at this time were answered. ord, Ashu Alvarenga, DO - 0 09/07/2018 11:01 AM PST Radiation Oncology Weekly On Treatment Note Diagnosis: ICD-10-CM ICD-9-CM 1. Recurrent basal cell carcinoma C44.91 173.91 Reason for visit: On treatment evaluation Radiation technical factors: Dose Delivered Dose Planned Fractions Delivered 825 cGy 5500 cGy 09/20 Setup was verified clinically on the treatment machine. Corrections were applied as necess raul. No Known Allergies Current Outpatient Prescriptions on File Prior to Encounter Medication Sig Dispense Refill aspirin 81 mg chewable tablet Take 81 mg by mouth Daily. atorvaSTATin (LIPITOR) 20 mg tablet Take 20 mg by mouth nightly. fish oil 1,000 mg capsule Take 1,000 mg by mouth Daily. levETIRAcetam (KEPPRA) 500 mg tablet take 1 [...] FOR ITCHING 3 No current facility-administered medications on file prior to encounter. Pain assessment: Location: neck pain Pain Level: PAIN PROG PAIN LEVEL: 4 Pain Quality: Sharp Current pain regimen: gabapentin 300 TID, was taking hydrocodone but is out of this now Wt Readings from Last 3 Encounters: 09/07/18 82.4 kg (181 lb 10.5 oz) 08/01/18 79 kg (174 lb 2.6 oz) Vitals: 09/07/18 1058 BP: 124/67 Pulse: 73 Resp: 16 Temp: 36.9 C (98.4 F) TempSrc: Temporal SpO2: 97% Weight: 82.4 kg (181 lb 10.5 oz) Physical Exam Constitutional: He is oriented [...] Nursing note and vitals reviewed. Physician Assessment: New start this week. Tolerating treatment well. He continues to have mild itching sensati on in his gabapentin dose will be titrated to effect. Additionally, he has occasional pain from the primary lesion which was previously managed with Anna. I will review and renew th is prescription today. He was advised to put warm soaks on the eschars and allow them to fa ll off without trying to trim them or pull them off as this would traumatize the perimeter o f the primary lesion and likely lead to increased risk of bleeding and infection. Acute tox icities reviewed. He'll continue treatment as planned. Toxicities reviewed in nursing note. Disposition: Continue radiation treatment as planned. Ashu Singh DO Radiation Oncologist Danielle Valencia RN - 0 09/07/2018 11:01 AM PST 09/07/18 1059 Gastrointestinal Nausea 0 - Grade 0 Vomiting [...] [place] | | | | | | [address] | | | | | | | | +--------+ + + + + documented as of this encounter Visit Diagnoses + + | Diagnosis | + + | Recurrent basal cell carcinoma - Primary Basal cell carcinoma of skin, site | | unspecified | + + documented in this encounter
--- OUTSIDE RECORDS SUMMARY | ~2020-03-03 | XMS | Clinical Summary ---
Demographics + + + | Address | [address] | | | [place] [address] | + + + | Home Phone | | + + + | Preferred Language | Unknown | + + + | Marital Status | | + + + | Pentecostalism Affiliation | Unknown | + + + | Race | White | + + + | Ethnic Group | Not or | + + + Author + + + | Author | [facility] | | | and [place] | + + + | Organization | [facility] | | | and [...] [place], [place] | | | | | [address] | | + + + + + | Isabella "Tiki" | ECON | [address] | | | [place] | | [place], [place] | | | | | [address] | | + + + + + Care Team Providers + +------+ + | Care Hand Bulldozer Name | Role | Phone | + [...] , | | 4/5. Has been intermittent. [place]-dark red blood observed, no | | clots. [...] + + + + + | Overview: [id number] care recs 10/09:Cleanse wound gently with | | warm wet gauze. [place] periwound skin with Cavilon skin prep. | [...] [place] | | | | | | [address] | | | | | | | [...] +--------+ +---------+--------+ | MEDICARE | MEDICA | [id number] | | [phone] | | Medica | | | RE | | 019-Pr | 5 | | re | | | PART A | | esent | | | | | | AND B | | | | | | + +--------+ +--------+ +---------+--------+ | | TRICAR | [id number] | | [phone] | | Indemn | [...] [place] | | | 4 (Home) | [address] | + +--------+ +--------+ + + Advance Directives + + + + + | Type | Date Recorded | Patient | Explanation | | | | Fitness Club Manager | | + + + + + | Power of | | | | | Film Loader | | | | + + + + + | Advance | | | | | Directive | | | | + + + + +
--- OUTSIDE RECORDS SUMMARY | ~2020-03-03 | XMS | Encounter Summary ---
Demographics + + + | Address | [address] | | | [place] [address] | + + + | Home Phone | | + + + | Preferred Language | Unknown | + + + | Marital Status | | + + + | Restorationist Affiliation | Unknown | + + + | Race | White | + + + | Ethnic Group | Not or | + + + Author + + + | Author | [facility] | | | and [place] | + + + | Organization | [facility] | | | [...] [place], [place] | | | | | [address] | | + + + + + | Isabella "Tiki" | ECON | [address] | | | [place] | | [place], [place] | | | | | [address] | | + + + + + Care Team Providers + +------+ + | Care Software Recruiter Name | Role | Phone | + +------+ + | No, Physician | PCP | Unavailable | + +------+ + Reason for Referral Evaluate & Treat (Routine) +--------+ + + + + + | Status | Reason | Specialty | Diagnoses / | Referred By | Referred To | | | | | Procedures | Contact | Contact | +--------+ + + + + + | Closed | Specialty | Dermatology | Diagnoses | Yeni, | Juan, | | | Services | | Recurrent | Carly Caldwell, | Richard Delarosa, | | | Required | | basal cell | MD [address] | | | | | carcinoma | [address] | [address] | | | | | | [place], | [place] | | | | | | [place] [address] | [address] | | | | | | Phone: | Phone: | | | | | | [phone] | [phone] | | | | | | Fax: | Fax: | | | | | | [phone] | [phone] | +--------+ + + + + + Encounter Details +--------+ + + + + | Date | Type | Department | Care Team | Description | +--------+ + + + + | 12/23/ | Orders Only | [facility] | Carly Jaime | Recurrent basal cell | | 2020 | | [facility] | MD Paulette [address] | carcinoma (Primary | | | | [facility]COLOGY CLINIC [address] | [facility] [place] [facility] [place] | Dx) | | | | [address] | [address] | | | | | [place] [address] | | | | | | [phone] | | | +--------+ + + + [...] [place] | | | | | | [address] | | | | | | | | +--------+ + + + + + + +--------+ + + | Name | Type | Priori | Associated Diagnoses | Order Schedule | | | | ty | | | + + +--------+ + + | Dermatology, | Outpatient | Routin | Recurrent basal | Ordered: 12/24/2019 | | External - AMB | Referral | e | cell carcinoma | | | Referral | | | | | + + +--------+ + + documented as of this encounter Visit Diagnoses + + | Diagnosis | + + | Recurrent basal cell carcinoma - Primary Basal cell carcinoma of skin, site | | unspecified | + + documented in this encounter
--- OUTSIDE RECORDS SUMMARY | ~2020-03-03 | XMS | Encounter Summary ---
Demographics + + + | Address | [address] | | | [place] [address] | + + + | Home Phone | | + + + | Preferred Language | Unknown | + + + | Marital Status | | + + + | Lutheran Affiliation | Unknown | + + + | Race | White | + + + | Ethnic Group | Not or | + + + Author + + + | Author | [facility] | | | and [place] | + + + | Organization | [facility] | | | and [...] [place], [place] | | | | | [address] | | + + + + + | Isabella "Tiki" | ECON | [address] | | | [place] | | [place], [place] | | | | | [address] | | + + + + + Care Team Providers + +------+ + | Care Grave Digger Name | Role | Phone | + +------+ + | No, Physician | PCP | Unavailable | + +------+ + Encounter Details +--------+ + + + + | Date | Type | Department | Care Team | Description | +--------+ + + + + | 05/17/ | Hospital | [facility] | Yeni Carly | Recurrent basal cell | | 2019 | Encounter | [facility] | MD Paulette [address] | carcinoma (Primary | | | | ONCOLOGY CLINIC [address] | [place], [place] | Dx) | | | [facility] [address] | | | | | [place] [address] | | | | | | [phone] | | | +--------+ + + + [...] [place] | | | | | | [address] | | | | | | | | +--------+ + + + + documented as of this encounter Visit Diagnoses + + | Diagnosis | + + | Recurrent basal cell carcinoma - Primary Basal cell carcinoma of skin, site | | unspecified | + + documented in this encounter
--- OUTSIDE RECORDS SUMMARY | ~2020-03-03 | XMS | Encounter Summary ---
[...] [place], [place] | | | | | [address] | | + + + + + | Isabella "Tiki" | ECON | [address] | | | [place] | | [place], [place] | | | | | [address] | | + + + + + Care Team Providers + +------+ + | Care Music Adapter Name | Role | Phone | + +------+ + | Alen Bolanos MD | PCP | | + +------+ + Encounter Details +--------+ + + + + | Date | Type | Department | Care Team | Description | +--------+ + + + + | 07/31/ | Abstract | [facility] | Ashu Singh DO | | | 2019 | | [facility] | [address] | | | | | ONCOLOGY CLINIC [address] | [place], [place] | | | | | [address] [place] | [address] | | | | | [place] [address] | | | | | | [phone] | | | +--------+ + + + [...] [place] | | | | | | [address] | | | | | | | | +--------+ + + + + documented as of this encounter Visit Diagnoses Not on filedocumented in this encounter
--- OUTSIDE RECORDS SUMMARY | ~2020-03-03 | XMS | Encounter Summary ---
Demographics + + + | Address | [address] | | | [place] [address] | + + + | Home Phone | | + + + | Preferred Language | Unknown | + + + | Marital Status | | + + + | Islam Affiliation | NRP | + + + | Race | White | + + + | Ethnic Group | Not or | + + + Author + + + | Author | [facility] | + + + | Organization | [facility] | + + + | Address | Unknown | + + + | Phone | Unavailable | + + + Support + + + + + | Name | Relationship | Address | Phone | + + + + + | Alnana Merino | DAT | [address] | | | | | [place] | | | | | [address] | | + + + + + Care Team Providers + +------+ + | Care Dietitian Helper Name | Role | Phone | + +------+ + | No Pcp Per Patient | PCP | Unavailable | + +------+ + Encounter Details +--------+ + + + + | Date | Type | Department | Care Team | Description | +--------+ + + + + | 10/09/ | Pharmacy | Outpatient Retail | | | | 2019 | Visit | [facility] | | | | | | [address] | | | | | | [place], [place] | | | | | | [address] | | | | | | [phone] | | | +--------+ + + + [...]
--- OUTSIDE RECORDS SUMMARY | ~2020-03-03 | XMS | Encounter Summary ---
Demographics + + + | Address | [address] | | | [place] [address] | + + + | Home Phone | | + + + | Preferred Language | Unknown | + + + | Marital Status | | + + + | Advent Affiliation | Unknown | + + + | Race | White | + + + | Ethnic Group | Not or | + + + Author + + + | Author | [facility] | | | and [place] | + + + | Organization | [facility] | | | [...] [place], [place] | | | | | [address] | | + + + + + | Isabella "Tiki" | ECON | [address] | | | [place] | | [place], [place] | | | | | [address] | | + + + + + Care Team Providers + +------+ + | Care Salesperson [employer] Name | Role | Phone | + [...] Closed | | Radiology | Diagnoses | Rdz, | [facility] | | | | | Hematuria, | Gene | HOSPITAL | | | | | unspecified | MD Dequan | [address] | | | | | type | [address] | KEM [place] | | | | | Procedures | [place] | [place] | | | | | CT Urogram w | [place] | [address] | | | | | wo Contrast | [address] | Phone: | | | | | [address] | Phone: | [phone] | | | | | SCAN,ABDOMEN | [phone] | Fax: | | | | | T AND | Fax: | [phone] | | | | | PELVIS,COMBO | [phone] | | +--------+--------+ + + + + Reason for Visit + + + | Reason | Comments | + + + | Hematuria | | + + + Evaluate & Treat (Routine) +--------+--------+ + + + + | Status | Reason | Specialty | Diagnoses / | Referred By | Referred To | | | | | Procedures | Contact | Contact | +--------+--------+ + + + + | Closed | | Urology | Diagnoses | Kemal, | [facility] | | | | | Hematuria | Deion Coates, | Urology [address] | | | | | | [address] | [address] | | | | | | [address] | [place], | | | | | | [place] | [place] [address] | | | | | | [place], [place] | Phone: | | | | | | [address] | [phone] | | | | | | Phone: | Fax: | | | | | | [phone] | [phone] | | | | | | Fax: | | | | | | | [phone] | | +--------+--------+ + + + + Encounter Details +--------+---------+ + + + | Date | Type | Department | Care Team | Description | +--------+---------+ + + + | 11/21/ | Office | [facility] | Radhames Rdz | Hematuria, | | 2019 | Visit | [address] | MD Dequan [address] | unspecified type | | | | [place] | [place] | (Primary Dx) | | | | [address] | [place] [address] | | | | | [phone] | [phone] | | | | | | | | +--------+---------+ + + + Social History + +-------+ [...] + + + | Blood Pressure | 114/62 | 11/21/2018 10:57 AM | | | | | PDT | | + + + + + | Pulse | 78 | 11/21/2018 10:57 AM | | | | | PDT | | + + + + + | Temperature | - | - | | + + + + + | Respiratory Rate | 20 | 11/21/2018 10:57 AM | | | | | PDT | | + + + + + | Oxygen Saturation | - | - | | + + + + + | Inhaled Oxygen | - | - | | | Concentration | | | | + + + + + | Weight | 81.6 kg (179 lb 14.3 | 11/21/2018 10:57 AM | | | | oz) | PDT | | + + + + + | Height | 177 cm (5' 9.69") | 11/21/2018 10:57 AM | | | | | PDT | | + + + + + | Body Mass Index | 26.05 | 11/21/2018 10:57 AM | | | | | PDT | | + + + + + documented in this encounter Progress Notes Radhames Rdz MD - 11/21/2018 11:15 AM PDTFormatting of this note might be differen t from the original. Guilherme is a 63 y.o. male patient being seen today for evaluation of hematuria. He was seen here in the office with his of 41 years. Approximately 40 years ago, he did have an episode of what sounds to be ureterolithiasis, w hich resolved spontaneously. He has also had a history of cigarette smoking off and on for the past 40 years. He denies any toxic exposures, but was in the [employer] for 20 years, with 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 One of his duty stations was not [place]. He recently had a basal cell cancer of his neck radiated, and following the radiation thera py, he developed a left carotid obstruction, which required angioplasty and stent placement at [facility]. While at [facility], he had gross hematuria, which was otherwise asymptomatic. He denie s any instrumentation. He has had no prior episodes of gross hematuria, and has very little in the way of bladder irritative or obstructive voiding symptoms at present. His urinalysis today was positive fo r blood, and his postvoid residual was only 38 cc. I reviewed the labs from [facility] this last October, and his kidney function was quite normal with a BUN of 19 and a creatinine of 1.08, w ith an EGFR of greater than 60. He is currently on aspirin and Plavix. Past Medical History He has a past medical history of Acute ischemic left ICA stroke (HCC), Cancer of skin of ne ck, Carotid stenosis, left, Dyslipidemia, Hypertension, Seasonal allergies, TIA (transient i schemic attack), and Vascular dementia. Past Surgical History He has a past surgical history that includes Skin cancer excision and Left ICA stent 10/10/19 19. Family History: His family history includes Cancer in his father. Social History: He reports that he has been smoking. He started smoking about 21 years ago. He has been sm oking about 1.00 pack per day. He has quit using smokeless tobacco. He reports that he has c urrent or past drug history. Drugs: Marijuana and Narcotics. He reports that he does not dri nk alcohol. No Known Allergies Medications: Outpatient Encounter Medications as of 11/21/2018 Medication Sig Dispense Refill aspirin 325 mg tablet Take 325 mg by mouth Daily. atorvaSTATin (LIPITOR) 40 mg tablet Take 40 mg by mouth nightly. [DISCONTINUED] clopidogrel (PLAVIX) 75 mg tablet Take 75 mg by mouth Daily. [DISCONTINUED] gabapentin (NEURONTIN) 300 mg capsule Take 3 capsules by mouth 3 times d aily. 270 capsule 0 [DISCONTINUED] HYDROcodone-acetaminophen (NORCO) 10-325 mg per tablet Take 1-2 tablets by mouth every 6 hours as needed for Pain. 120 tablet 0 lisinopril-hydrochlorothiazide (PRINZIDE,ZESTORETIC) 10-12.5 MG per tablet Take 1 table t by mouth Daily. [DISCONTINUED] naloxone (NARCAN) 4 mg/nasal spray 1 spray by Nasal route as needed for Decreased Responsiveness. (Patient not taking: Reported on 11/21/2018) 2 each 0 omeprazole (PRILOSEC) 20 mg capsule Take 20 mg by mouth every morning (before breakfast ). No facility-administered encounter medications on file as of 11/21/2018. IPSS (International Prostate Symptom Score) 0=0 - Not at All 1=1 - Less than 1 in 5 times 2=2 - Less than half the time 3=3 - About half the time 4=4 - More than half the time 5=5 - Almost alwyas IPSS (INTERNATIONAL PROSTATE SYMPTOM SCORE) 11/21/2018 1. Incomplete Emptying - How often have you had the sensation of not emptying your bladder? 1 2. Frequency - How often have you had to urinate less than every two hours? 2 3. Intermittency - How often have you found you stopped and started again several times whe n you urinated? 0 4. Urgency - How often have you found it difficult to postpone urination? 0 5. Weak Stream - How often have you had a weak urinary stream? 0 6. Straining - How often have you had to strain to start urination? 1 7. Nocturia - How many times did you typically get up at night to urinate? 1 Total: 5 Quality of Life Due to Urinary Symptoms 0=0 - Delighted 1=1 - Pleased 2=2 - Mostly satisfied 3=3 - Mixed 4=4 - Mostly dissatisfied 5=5 - Unhappy 6=6 - Terrible QUALITY OF LIFE (URINARY) 11/21/2018 If you were to spend the rest of your life with your urinary condition just the way it is n ow, how would you feel about that? 0 REVIEW OF SYSTEMS: [] Marked All Negative Constitutional Symptoms: [] Fever [] Chills [] Headache [] Change in appetite [] Change in weight [x] Change in energy [] Other: Neurological: [] Tremors [] Dizzy Spells [] Numbness/Tingling [] Seizures [] Other: Endocrine: [] Excessive thirst [] Too hot [] Too cold [] Tired/Sluggish Gastrointestinal: [] Abdominal pain [] Nausea/Vomiting [x] Indigestion/heartburn [] Change in sto ol size [] Change in stool shape [] Change in stool color [] Pain with swallowin g [] Other: Cardiovascular: [] Chest Pain [] Rapid heart rate [x] High blood pressure [] Other: Integumentary: [] Skin rash [] Boils [] Persistent itch [] Other: Musculoskeletal: [] Neck Pain [] Joint swelling/pain [] Back pain [] Bone pain [] Other: Respiratory: [] Wheezing [] Frequent cough [] Shortness of breath [] Other: Hematologic/Lymphatic: [] Swollen glands [] Blood clotting issues [] Prior blood transfusions []Other: Psychologic: Are you generally satisfied with your life? yes Do you feel severely depressed? no Have you considered suicide? no Habits: Do you smoke? yes PHYSICAL EXAM Vitals: BP 114/62 | Pulse 78 | Resp 20 | Ht 1.77 m (5' 9.69") | Wt 81.6 kg (179 lb 14.3 oz) | BMI 26.05 kg/m General: Awake, alert, in no acute distress. Speech is fluent. Appears to be stated age. A bit hard of hearing. Neck: Radiation eschar of his left neck area. Lungs: Normal respiratory effort, no wheezing, no stridor, no tachypnea. Chest: No rib or bony tenderness. Back: No CVA tenderness. Abdomen: Soft, nontender, no hepatosplenomegaly. No masses. No guarding; benign. Bladder nondistended. No flank mass. No flank tenderness. Extremities: Non-edematous. Neuro: Awake, alert, oriented. Psychiatric: Mood and affect are normal. Normal judgment. Skin: Warm and dry, no erythematous rash. Radiation eschar of his left neck. Groin: No lymphadenopathy. No hernia. Genitalia: No lesion, circumcised. Normal in appearance. Urethral meatus is normal in judith priscilla. Scrotum is supple and nonerythematous. Scrotal contents are benign. Rectal: No mass, normal sphincter tone. Prostate gland is palpably benign. Prostate gland is enlarged. Prostate gland volume is estimated at 30-35 gm. Lateral sulci are intact. Th ere is no prostatic induration, nodularity, irregularity, or asymmetry. DIAGNOSTIC DATA: Urinalysis is positive for blood, but negative for nitrites, and leukocyte esterase. IMPRESSION: Total gross painless hematuria in a smoker History of urolithiasis Basal cell cancer, left neck area PLAN: Because of the many possible causes of Guilherme's gross hematuria, I have suggested jamar t he obtain a urine cytology test, as well as CT urogram, and cystoscopy. He has not had a previous PSA blood test, and although his prostate feels normal, I suggested a PSA as a base line. He wishes to have the CT urogram performed in [place], and will return for his urin e cytology and cystoscopy within the next 2 weeks. Guilherme is instructed to resume his usual and customary care with his primary care provider. I asked Guilherme to notify me if there were any difficulties voiding, or UTI symptoms, or fla nk pain, or for any questions or concerns whatsoever. This document was generated in part using Jeeves voice recognition software. Although ever y effort is made to edit the content, teamsite developer errors may occur. Occasional wrong word or sound alike substitutions may have occurred due to the inherent limitations of the voice recognition software. Please read the chart carefully and recognize, using context, where lasha substitutions may have occurred. documented in is encounter Plan of Treatment +--------+ + + + + | Date | Type | Specialty | Care Team | Description | +--------+ + + + + | 03/26/ | Appointment | Radiation Oncology | Papito Alvarez MD | | | 2019 | | | [address] [facility] | | | | | | [place] | | | | | | [id number] | | | | | | | | +--------+ + + + + + +---------+--------+ + + | Name | Type | Priori | Associated Diagnoses | Order Schedule | | | | ty | | | + +---------+--------+ + + | CT Urogram w wo | Imaging | Routin | Hematuria, | Expected: | | Contrast | | e | unspecified type | 11/21/2018, Expires: | | | | | | 11/22/2019 | + +---------+--------+ + + documented as of this encounter Procedures + +--------+ + + + | Procedure Name | Priori | Date/Time | Associated Diagnosis | Comments | | | ty | | | | + +--------+ + + + | URINALYSIS, | Routin | 11/21/2018 | Hematuria, | Results for this | | MICROSCOPIC ONLY, | e | 10:49 AM | unspecified type | procedure are in the | | WITH CULTURE IF | | PDT | | results section. | | INDICATED | | | | | + +--------+ + + + | POCT URINALYSIS, | Routin | 11/21/2018 | Hematuria, | Results for this | | AUTO WITH CONF | e | 10:49 AM | unspecified type | procedure are in the | | | | PDT | | results section. | + +--------+ + + + | DIAGNOSTIC REPORT - | | 11/21/2018 | | Results for this | | EXTERNAL SCAN | | 12:00 AM | | procedure are in the | | | | PDT | | results section. | + +--------+ + + + documented in this encounter Results PSA, Diagnostic (11/21/2018 12:01 PM PDT) + +-------+ + + + | Component | Value | Ref Range | Performed | Pathologist | | | | | At | Signature | + +-------+ + + + | PSA | 0.71 | <=4.00 ng/mL | [facility] | | | | | [facility] | | [facility] | | | | | [facility] - | | | | | | LABORATORY | | + +-------+ + + + + + | Specimen | + + | Blood | + + + + + + + | Performing | Address | City/State/Zipcode | Phone Number | | Organization | | | | + + + + + | [facility] | [address] | [place] | [phone] | | [facility] | | [address] | | | - LABORATORY | | | | + + + + + Urinalysis, Microscopic Only, with Culture if Indicated (11/21/2018 10:49 AM PDT) + + + + + + | Component | Value | Ref Range | Performed | Pathologist | | | | | At | Signature | + + + + + + | White Blood | 0-2 | 0 - 2 /HPF | [facility] | | | Cells, | | | [facility] | | | Urine | | | MEDICAL | | | | | | CENTER - | | | | | | LABORATORY | | + + + + + + | Red Blood | 0-2 | 0 - 2 /HPF | [facility] | | | Cells, | | | [facility] | | | Urine | | | MEDICAL | | | | | | CENTER - | | | | | | LABORATORY | | + + + + + + | Squamous | 2-5 (A) | 0 - 2 /LPF | [facility] | | | Epithelial | | | [facility] | | | Cells, | | | MEDICAL | | | Urine | | | CENTER - | | | | | | LABORATORY | | + + + + + + | Bacteria, | Negative | Negative /HPF | [facility] | | | Urine | | | [facility] | | | | | | MEDICAL | | | | | | CENTER - | | | | | | LABORATORY | | + + + + + + | Mucus, | Present (A) | Negative /LPF | [facility] | | | Urine | | | [facility] | | | | | | MEDICAL | | | | | | CENTER - | | | | | | LABORATORY | | + + + + + + | Urine | Urine Culture Not | | [facility] | | | Comment | Indicated | | [facility] | | | | | | MEDICAL | | | | | | CENTER - | | | | | | LABORATORY | | + + + + + + + + | Specimen | + + | Urine - Urine | | specimen obtained by | | clean catch | | procedure (specimen) | + + + + + + + | Performing | Address | City/State/Zipcode | Phone Number | | Organization | | | | + + + + + | [facility] | [address] | [place] | [phone] | | [facility] | | [address] | | | - LABORATORY | | | | + + + + + POCT Urinalysis (11/21/2018 10:49 AM PDT) + + + + + + | Component | Value | Ref Range | Performed | Pathologist | | | | | At | Signature | + + + + + + | Color, UA, | Jaki (A) | Yellow, Light | | | | POC | | Yellow | | | + + + + + + | Clarity, | Clear | | | | | UA, POC | | | | | + + + + + + | Glucose, | Negative | Negative | | | | UA, POC | | | | | + + + + + + | Bilirubin, | Negative | Negative | | | | UA, POC | | | | | + + + + + + | Ketones, | Negative | Negative, 100 | | | | UA, POC | | mg/dL | | | + + + + + + | Specific | 1.020 | 1.001 - 1.030 | | | | [place], | | | | | | UA, POC | | | | | + + + + + + | Blood, UA, | Trace Intact (A) | Negative | | | | POC | | | | | + + + + + + | pH, UA, POC | 6.0 | 5.0, 6.0, 7.0, | | | | | | 8.0, 5.5, 6.5, | | | | | | 7.5 | | | + + + + + + | Protein, | Trace (A) | Negative | | | | UA, POC | | | | | + + + + + + | Urobilinoge | 0.2 | 0.2, Negative, | | | | n, UA, POC | | Normal, < 0.2 | | | | | | mg/dL, 1 mg/dL, | | | | | | < 0.2 E.U./dl, | | | | | | 1.0 E.U./dL, | | | | | | 0.2 mg/dL | | | + + + + + + | Nitrite, | Negative | Negative | | | | UA, POC | | | | | + + + + + + | Leukocyte | Negative | Negative | | | | Esterase, | | | | | | UA, POC | | | | | + + + + + + | Reducing | | | | | | Substances, | | | | | | Urine | | | | | + + + + + + | Bilirubin | | Negative | | | | Confirmatio | | | | | | n by | | | | | | Ictotest, | | | | | | Urine | | | | | + + + + + + | Remark | | | | | + + + + + + + + | Specimen | + + | Urine | + + DIAGNOSTIC REPORT - EXTERNAL SCAN (11/21/2018 12:00 AM PDT) + + + | Narrative | Performed At | + + + | Ordered by an | | | unspecified provider. | | + + + documented in this encounter Visit Diagnoses + + | Diagnosis | + + | Hematuria, unspecified type - Primary | + + documented in this encounter
--- OUTSIDE RECORDS SUMMARY | ~2020-03-03 | XMS | Encounter Summary ---
Demographics + + + | Address | [address] | | | [place] [address] | + + + | Home Phone | | + + + | Preferred Language | Unknown | + + + | Marital Status | | + + + | Presybeterian Affiliation | Unknown | + + + | Race | White | + + + | Ethnic Group | Not or | + + + Author + + + | Author | [facility] | | | and [place] | + + + | Organization | [facility] | | | [...] [place], [place] | | | | | [address] | | + + + + + | Isabella "Tiki" | ECON | [address] | | | [place] | | [place], [place] | | | | | [address] | | + + + + + Care Team Providers + +------+ + | Care Glue Cook Name | Role | Phone | + [...] [place] | | | | | | [place] [address] | [address] | | | | | | Phone: | Phone: | | | | | | [phone] | [phone] | | | | | | Fax: | Fax: | | | | | | [phone] | [phone] | +--------+ + + + + + [...] | ONCOLOGY CLINIC [address] | [facility] [place] [facility] [place] | Dx) | | | | [address] [place] | [address] | | | | | [place] [address] | | | | | | [phone] | | | +--------+ + + + [...] [place] | | | | | | [address] | | | | | | | [...]
--- OUTSIDE RECORDS SUMMARY | ~2020-03-03 | XMS | Encounter Summary ---
Demographics + + + | Address | [address] | | | [place] [address] | + + + | Home Phone | | + + + | Preferred Language | Unknown | + + + | Marital Status | | + + + | Protestant Affiliation | Unknown | + + + | Race | White | + + + | Ethnic Group | Not or | + + + Author + + + | Author | [facility] | | | and [place] | + + + | Organization | [facility] | | | [...] [place], [place] | | | | | [address] | | + + + + + | Isabella "Tiki" | ECON | [address] | | | [place] | | [place], [place] | | | | | [address] | | + + + + + Care Team Providers + +------+ + | Care Mitering Machine Operator Name | Role | Phone [...] | | | | Recurrent | [place] [address] | [place] | | | | | basal cell | Phone: | [address] | | | | | carcinoma | [phone] | Phone: | | | | | | Fax: | [phone] | | | | | | [phone] | Fax: | | | | | | | [phone] | +--------+ + + + + + Reason for Visit + + + | Reason | Comments | + + + | Under Treatment | | + + + Encounter Details +--------+ + + + + | Date | Type | Department | Care Team | Description | +--------+ + + + + | 09/28/ | Hospital | [facility] | Ashu Singh DO | Basal cell carcinoma | | 2019 | Encounter | [facility] | [address] | (BCC) of skin of | | | | ONCOLOGY CLINIC [address] | [place] | neck (Primary Dx); | | | | [address] [place] | [address] | Recurrent basal cell | | | | [place] [address] | | carcinoma | | | | [phone] | | | +--------+ + + + [...] 6 Pain Quality: Stable Current pain regimen: Gardiner 10/325 1 tab q 6hours Wt Readings [...] this well with no signific ant pruritus. Gardiner 10 mg/325mg has been titrated to 1 [...] planned. Ashu Singh DO Radiation Oncologist SaTanner an RN - 0 09/28/2018 10:48 AM PDT [...] [place] | | | | | | [id number] | | | | | | | [...]
--- OUTSIDE RECORDS SUMMARY | ~2020-03-03 | XMS | Encounter Summary ---
Demographics + + + | Address | [address] | | | [place] [address] | + + + | Home Phone | | + + + | Preferred Language | Unknown | + + + | Marital Status | | + + + | Tenriism Affiliation | Unknown | + + + | Race | White | + + + | Ethnic Group | Not or | + + + Author + + + | Author | [facility] | | | and [place] | + + + | Organization | [facility] | | | and [...] [place], [place] | | | | | [address] | | + + + + + | Isabella "Tiki" | ECON | [address] | | | [place] | | [place], [place] | | | | | [address] | | + + + + + Care Team Providers + +------+ + | Care Copier Technician Name | Role | Phone | + [...] | +--------+ + + + + | 09/21/ | Hospital | [facility] | Ashu Singh DO | Basal cell carcinoma | | 2019 | Encounter | [facility] RAD[facility] | [address] | (BCC) of skin of | | | | ONCOLOGY CLINIC [address] | [place] | neck (Primary Dx) | | | | [address] | [address] | | | | | [place] [address] | | | | | | [phone] | | | +--------+ + + + [...] + + + | Blood Pressure | 116/69 | 09/21/2018 10:58 AM | | | | | PDT | | + + + + + | Pulse | 66 | 09/21/2018 10:58 AM | | | | | PDT | | + + + + + | Temperature | 37.1 C (98.8 F) | 09/21/2018 10:58 AM | | | | | PDT | | + + + + + | Respiratory Rate | 18 | 09/21/2018 10:58 AM | | | | | PDT | | + + + + + | Oxygen Saturation | 96% | 09/21/2018 10:58 AM | | | | | PDT | | + + + + + | Inhaled Oxygen | - | - | | | Concentration | | | | + + + + + | Weight | 82.6 kg (182 lb 1.6 | 09/21/2018 10:58 AM | | | | oz) [...] encounter Progress Notes Ashu Singh DO - 09/21/2018 10:56 AM PDT Radiation Oncology Weekly On Treatment Note Diagnosis: ICD-10-CM ICD-9-CM 1. Basal cell carcinoma (BCC) of skin of neck C44.41 173.41 Reason for visit: On treatment evaluation Radiation technical factors: Dose Delivered Dose Planned Fractions Delivered 3575 cGy 5500 cGy Setup was verified clinically [...] 3 times daily. 270 capsu le 0 lisinopril-hydrochlorothiazide (PRINZIDE,ZESTORETIC) 10-12.5 MG per tablet Take 1 table t by mouth Daily. omeprazole (PRILOSEC) 20 mg capsule Take 20 mg by mouth every morning (before breakfast ). No current facility-administered medications on file prior to encounter. Pain assessment: Location: Left neck Pain Level: PAIN PROG PAIN LEVEL: 6 Pain Quality: Stable Current pain regimen: [place] 5/325 2 tabs 4 times a day Wt Readings from Last 3 Encounters: 09/21/18 82.6 kg (182 lb 1.6 oz) 09/14/18 83.5 kg (184 lb 1.4 oz) 09/07/18 82.4 kg (181 lb 10.5 oz) Vitals: 09/21/18 1058 BP: 116/69 Pulse: 66 Resp: 18 Temp: 37.1 C (98.8 F) TempSrc: Tympanic SpO2: 96% Weight: 82.6 kg (182 lb [...] this well with no signific ant pruritus. [place] has been titrated to 2 tabs 4 times a day leading to improved overall p ain control-he is now requesting a refill. I will represcribed [place] at 10 mg/325 mg 1-2 ta b every 6 hours for the duration of treatments. Toxicities reviewed in nursing note. Disposition: Continue radiation treatment as planned. Ashu Singh DO Radiation Oncologist Emmy Cantu RN - 09/21/2018 10:53 AM PDT 09/21/18 1052 General Disorders and Administration Site Conditions Fatigue 2 - Grade 2 Performance Status Karnofsky Performance Score 70% Skin on left side of neck remains red states that it oozes at night still but that the drainage is now clear no longer bloody or yellow. States that the Vaseline patches are help ing. documented in this encounter Plan of Treatment [...] [place] | | | | | | [id number] | | | | | | | | +--------+ + + + + documented as of this encounter Visit Diagnoses + + | Diagnosis | + + | Basal cell carcinoma (BCC) of skin of neck - Primary | + + documented in this encounter
--- OUTSIDE RECORDS SUMMARY | ~2020-03-03 | XMS | Encounter Summary ---
Demographics + + + | Address | [address] | | | [place] [address] | + + + | Home Phone | | + + + | Preferred Language | Unknown | + + + | Marital Status | | + + + | Muslim Affiliation | Unknown | + + + | Race | White | + + + | Ethnic Group | Not or | + + + Author + + + | Author | [facility] | | | and [place] | + + + | Organization | [facility] | | | [...] [place], [place] | | | | | [address] | | + + + + + | Isabella "Tiki" | ECON | [address] | | | [place] | | [place], [place] | | | | | [address] | | + + + + + Care Team Providers + +------+ + | Care Medical Equipment Repairer Name | Role | Phone | + [...] cell | Ashu C DO | [address] | | | | | carcinoma | [address] | [place], | | | | | (BCC) of | [address] | [place] [address] | | | | | skin of neck | [place], | Phone: | | | | | Procedures | [place] [address] | [phone] | | | | | CT | Phone: | Fax: | | | | | Treatment | [phone] | [phone] | | | | | Plan Complex | Fax: | | | | | | CT TX PLAN | [phone] | | +--------+--------+ + + + + [...] | | Consult/Recu | [place] | [place] [address] | | | | | rrent [place] | [address] | Phone: | | | | | Cell/Quacken | [place], | [phone] | | | | | soler | [place] [address] | Fax: | | | | | Procedures | Phone: | [phone] | | | | | [place] OFFICE | [phone] | | | | | | OUTPATIENT | Fax: | | | | | | NEW 60 | [phone] | | | | | | MINUTES NEW | | | | | | | PATIENT | | | +--------+--------+ + + + + Encounter Details +--------+ + + + + | Date | Type | Department | Care Team | Description | +--------+ + + + + | 08/01/ | Hospital | [facility] | Ashu Singh DO | Basal cell carcinoma | | 2019 | Encounter | [facility] | [address] | (BCC) of skin of | | | | ONCOLOGY CLINIC [address] | [place] | neck (Primary Dx) | | | | [address] [place] | [address] | | | | | [place] [address] | | | | | | [phone] | | | +--------+ + + + [...] He is a pleasant 63-year-old gentleman from [place], [place] who has a long-sta nding history of basal cell carcinoma involving his left neck. 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 He returned again i n 2008 to [...] have a pacemaker or ICD: no Type: Social Welfare Research Worker: Is it MRI compatible: Are you claustrophobic? [...] review including his last s urgeries at [facility] found in care everywhere. He states that he does not want any further surg maisha on his neck as his last surgery took over 8 hours to complete and due to the distance re quired to return to [facility]. I reviewed with them the current NCCN guidelines regarding the ma nagement of basal cell carcinoma including the option of further surgical evaluation with Dr Cheri Herrera at the [facility] who is a fellowship trained Moh's surgeon, [...] ZACR Radiation Oncologist Department of Radiation Oncology [facility] This note was transcribed using [employer] speech recognition software. As a result, there [...] | 2019 | | | [address] [facility] | | | | | | [place] | | | | | | [id number] | | | | | | | [...]
--- OUTSIDE RECORDS SUMMARY | ~2020-03-03 | XMS | Encounter Summary ---
Demographics + + + | Address | [address] | | | [place] [address] | + + + | Home Phone | | + + + | Preferred Language | Unknown | + + + | Marital Status | | + + + | Hinduism Affiliation | Unknown | + + + | Race | White | + + + | Ethnic Group | Not or | + + + Author + + + | Author | [facility] | | | and [place] | + + + | Organization | [facility] | | | [...] [place], [place] | | | | | [address] | | + + + + + | Isabella "Tiki" | ECON | [address] | | | [place] | | [place], [place] | | | | | [address] | | + + + + + Care Team Providers + +------+ + | Care Pattern Fitter Name | Role | Phone | + +------+ + | Alen Bolanos MD | PCP | | + +------+ + Reason for Visit +--------+--------+ + | Reason | Onset | Comments | | | Date | | +--------+--------+ + | Other | 08/03/ | | | | 2018 | | +--------+--------+ + Encounter Details +--------+ + + + + | Date | Type | Department | Care Team | Description | +--------+ + + + + | 08/03/ | Telephone | [facility] | Ashu Singh, DO | Other | | 2018 | | MED CTR MEDICAL | [address] [facility] | | | | | ONCOLOGY CLINIC [address] | [place] | | | | | [address] | [address] | | | | | [place] [address] | | | | | | [phone] | | | +--------+ + + + [...] Notes Telephone Encounter - Cody Sharif - 08/03/2018 10:07 AM PSTPt daughter called, leonora medicine prescribed for itching, she wanted to let know it was working well. Did not req call back do cumented in this encounter Plan of Treatment +--------+ + + + + | Date | Type | Specialty | Care Team | Description | +--------+ + + + + | 03/26/ | Appointment | Radiation Oncology | Papito Alvarez MD | | | 2020 | | | [address] | | | | | | [place] | | | | | | [id number] | | | | | | | | +--------+ + + + + documented as of this encounter Visit Diagnoses Not on filedocumented in this encounter
--- OUTSIDE RECORDS SUMMARY | ~2020-03-03 | XMS | Encounter Summary ---
Demographics + + + | Address | [address] | | | [place] [address] | + + + | Home Phone | | + + + | Preferred Language | Unknown | + + + | Marital Status | | + + + | Denominational Affiliation | Unknown | + + + | Race | White | + + + | Ethnic Group | Not or | + + + Author + + + | Author | [facility] | | | and [place] | + + + | Organization | [facility] | | [...] [place], [place] | | | | | [address] | | + + + + + | Isabella "Tiki" | ECON | [address] | | | [place] | | [place], [place] | | | | | [address] | | + + + + + Care Team Providers + +------+ + | Care Platform Mill Supervisor Name | Role | Phone | + +------+ + | Alen Bolanos MD | PCP | | + +------+ + Encounter Details +--------+ + + + + | Date | Type | Department | Care Team | Description | +--------+ + + + + | 09/06/ | Hospital | [facility] | Ashu Singh DO | | | 2019 | Encounter | MED CTR RADIATION | [address] | | | | | ONCOLOGY [address] | [place] | | | | | [place], | [address] | | | | | [place] [address] | | | | | | [phone] | | | +--------+ + + + [...] [place] | | | | | | [id number] | | | | | | | | +--------+ + + + + documented as of this encounter Visit Diagnoses Not on filedocumented in this encounter
--- OUTSIDE RECORDS SUMMARY | ~2020-03-03 | XMS | Encounter Summary ---
Demographics + + + | Address | [address] | | | [place] [address] | + + + | Home Phone | | + + + | Preferred Language | Unknown | + + + | Marital Status | | + + + | Caodaism Affiliation | Unknown | + + + | Race | White | + + + | Ethnic Group | Not or | + + + Author + + + | Author | [facility] | | | and [place] | + + + | Organization | [facility] | | [...] [place], [place] | | | | | [address] | | + + + + + | Isabella "Tiki" | ECON | [address] | | | [place] | | [place], [place] | | | | | [address] | | + + + + + Care Team Providers + +------+ + | Care Step Finisher Name | Role | Phone | + +------+ + | No, Physician | PCP | Unavailable | + +------+ + Reason for Visit + +--------+ + | Reason | Onset | Comments | | | Date | | + +--------+ + | IDT Note | 05/08/ | | | | 2018 | | + +--------+ + Encounter Details +--------+ + + + + | Date | Type | Department | Care Team | Description | +--------+ + + + + | 05/08/ | Telephone | [facility] | Danielle Robb, | IDT Note | | 2018 | | MED CTR RADIATION | RN | | | | | ONCOLOGY CLINIC [address] | | | | | | [address] | | | | | | [place] [address] | | | | | | [phone] | | | +--------+ + + + [...] Telephone Encounter - Danielle Robb RN - 05/08/2019 10:34 AM PST [facility] Interdisciplinary Team Navigational Checklist ? Top Priority Discipline EPIC Order Entered Consult Scheduled Consult Complete Comments: x *Medical Oncology x *Radiation Oncology Dr. Yeni Hitchcock 05/09/2019 x *Patient Navigation x *Nurse Navigator *Social Service Survivorship Nurse Breast Health Genetics Surgical Input *Nursing assessment *Pharmacy assessment Nutrition Rehab: PT OT Speech & Language Palliative Care Clinical Trials Involvement Web Methods Developer Visit Financial Assistance Interdisciplinary Consults Completed Date: [...] [place] | | | | | | [address] | | | | | | | | +--------+ + + + + documented as of this encounter Visit Diagnoses Not on filedocumented in this encounter
--- OUTSIDE RECORDS SUMMARY | ~2020-03-03 | XMS | Encounter Summary ---
Demographics + + + | Address | [address] | | | [place] [address] | + + + | Home Phone [...] + + + | Author | [facility] | | | and [place] | + + + | Organization | [facility] | | [...] [place], [place] | | | | | [address] | | + + + + + | Isabella "Tiki" | ECON | [address] | | | [place] | | [place], [place] | | | | | [address] | | + + + + + Care Team Providers + +------+ + | Care Forming Process Line Worker Name | Role | Phone | + +------+ + | No, Physician | PCP | Unavailable | + +------+ + Encounter Details +--------+ + + + + | Date | Type | Department | Care Team | Description | +--------+ + + + + | 06/14/ | Hospital | [facility] | Yeni Carly | Recurrent basal cell | | 2019 | Encounter | MED CTR RADIATION | MD Paulette [address] | carcinoma (Primary | | | | ONCOLOGY CLINIC [address] | [place], [place] | Dx) | | | | [facility] | [address] | | | | | [place] [address] | | | | | | [phone] | | | +--------+ + + + [...] and hydrocodone for pain control. Rx for [place] 5/325 provided Follow-up in 3 months, sooner [...] [place] | | | | | | [id number] | | | | | | | [...]
--- OUTSIDE RECORDS SUMMARY | ~2020-03-03 | XMS | Encounter Summary ---
Demographics + + + | Address | [address] | | | [place] [address] | + + + | Home Phone | | + + + | Preferred Language | Unknown | + + + | Marital Status | | + + + | Yazidi Affiliation | Unknown | + + + [...] [place], [place] | | | | | [address] | | + + + + + | Isabella "Tiik" | ECON | [address] | | | [place] | | [place], [place] | | | | | [address] | | + + + + + Care Team Providers + +------+ + | Care Clean Up Supervisor Name | Role | Phone | + +------+ + | No, Physician | PCP | Unavailable | + +------+ + Reason for Visit +--------+--------+ + | Reason | Onset | Comments | | | Date | | +--------+--------+ + | Other | 08/11/ | | | | 2018 | | +--------+--------+ + Encounter Details +--------+ + + + + | Date | Type | Department | Care Team | Description | +--------+ + + + + | 08/11/ | Telephone | [facility] | Ashu Singh DO | Other | | 2019 | | MED CTR MEDICAL | [address] [facility] | | | | | ONCOLOGY CLINIC [address] | [place] | | | | | [address] | [address] | | | | | [place] [address] | | | | | | [phone] | | | +--------+ + + + [...] Telephone Encounter - Danielle Robb RN - 08/11/2018 10:11 AM PSTColette notified. Elect ronically signed by Danielle Robb RN at 08/11/2018 10:11 AM PSTTelephone Encounter - Cody Sharif - 08/11/2018 9:44 AM PSTPt daughter Tiki called, due to weather they would li ke to delay radiation by one week as they have to drive from [employer] and she feels that th at would over stress him. Asks for call back @ either of these #'s [phone] Thank you CC Milagros Moran and Rad Onc nurse 9:4 6 AM PSTdocumented in this encounter Plan of Treatment +--------+ [...] [place] | | | | | | [address] | | | | | | | | +--------+ + + + + documented as of this encounter Visit Diagnoses Not on filedocumented in this encounter
--- OUTSIDE RECORDS SUMMARY | ~2020-03-03 | XMS | Encounter Summary ---
Demographics + + + | Address | [address] | | | [place] [address] | + + + | Home Phone | | + + + | Preferred Language | Unknown | + + + | Marital Status | | + + + | Episcopalian Affiliation | NRP | + + + | Race | White | + + + | Ethnic Group | Not or | + + + Author + + + | Author | [facility] | + + + | Organization | [facility] | + + + | Address | Unknown | + + + | Phone | Unavailable | + + + Support + + + + + | Name | Relationship | Address | Phone | + + + + + | Alanna Merino | DAT | [address] | | | | | [address] | | | | | [address] | | + + + + + Care Team Providers + +------+ + | Care Block Placer Name | Role | Phone | + +------+ + | No Pcp Per Patient | PCP | Unavailable | + +------+ + Encounter Details +--------+------+ + + + | Date | Type | Department | Care Team | Description | +--------+------+ + + + | 11/09/ | Lab | Laboratory at [facility] | | History of ischemic | | 2019 | | [address] | | left MCA stroke; | | | | Loop Physician's | | Stenosis of left | | | | [place], [address] floor | | internal carotid | | | | [place], [place] | | artery | | | | [address] | | | | | | [phone] | | | +--------+------+ + + + Social History + + [...] | + +--------+ + + + | LIPID SET (TRIG, T | Routin | 11/09/2018 | History of | Results for this | | CHOL, HDL, CALC LDL) | e | 1:57 PM | ischemic left MCA | procedure are in the | | | | PDT | stroke Stenosis of | results section. | | | | | left internal | | | | | | carotid artery | | + +--------+ + + + documented in this encounter Results LIPID SET (TRIG, T CHOL, HDL, CALC LDL) (11/09/2018 1:57 PM PDT) + +---------+ + + + | Component | Value | Ref Range | Performed | Pathologist | | | | | At | Signature | + +---------+ + + + | CHOLESTEROL | 153 | <200 mg/dL | [facility] | | | (LAB) | | | LABORATORY | | | | | | SERVICES, | | | | | | CORE | | + +---------+ + + + | TRIGLYCERID | 263 (H) | <150 mg/dL | [facility] | | | ES | | | LABORATORY | | | | | | SERVICES, | | | | | | CORE | | + +---------+ + + + | HDL | 38 (L) | >40 mg/dL | [facility] | | | CHOLESTEROL | | | LABORATORY | | | | | | SERVICES, | | | | | | CORE | | + +---------+ + + + | HDL CMNT | No Hemo | | [facility] | | | | | | LABORATORY | | | | | | SERVICES, | | | | | | CORE | | + +---------+ + + + | LDL | 62 | <100 mg/dL | [facility] | | | CHOLESTEROL | | | LABORATORY | | | , | | | SERVICES, | | | CALCULATED | | | CORE | | + +---------+ + + + | VLDL | 53 (H) | <31 mg/dL | [facility] | | | CHOLESTEROL | | | LABORATORY | | | , | | | SERVICES, | | | CALCULATED | | | CORE | | + +---------+ + + + | NON-HDL | 115 | <130 mg/dL | [facility] | | | CHOLESTEROL | | | LABORATORY | | | | | | SERVICES, | | | | | | CORE | | + +---------+ + + + + + | Specimen | + + | Blood - Blood | | (substance) | + + + + + | Narrative | Performed At | + + + | Cholesterol Reference Range: Desirable: <200 | [facility] | | mg/dL Borderline High: 200 - 239 mg/dL | LABORATORY | | High: >=240 mg/dL LDL Cholesterol | SERVICES, CORE | | Reference Range: Optimal: <100 mg/dL | | | Near Optimal: 100-129 mg/dL Borderline High: 130-159 | | | mg/dL High: 160-189 mg/dL | | | Very High: >=190 mg/dL non-HDL Cholesterol Reference Range: | | | Optimal: <130 mg/dL Near Optimal: | | | 130-159 mg/dL Borderline High: 160-189 mg/dL | | | High: 190-209 mg/dL Very High: | | | >=210 mg/dL Triglyceride Reference Range: | | | Normal: <150 mg/dL Borderline High: 150-199 mg/dL | | | High: 200-499 mg/dL Very High: >=500 mg/dL | | | HDL Reference Range: High Risk: <40 mg/dL | | | Desirable: >=60 mg/dL | | + + + + + + + + | Performing | Address | City/State/Zipcode | Phone Number | | Organization | | | | + + + + + | [facility] | [address] | [place] [address] | | | SERVICES, CORE | [address] | | | + + + + + documented in this encounter Visit Diagnoses + + | Diagnosis | + + | History of ischemic left MCA stroke Transient ischemic attack (TIA), and cerebral | | infarction without residual deficits | + + | Stenosis of left internal carotid artery | + + documented in this encounter"
--- OUTSIDE RECORDS SUMMARY | ~2020-03-03 | XMS | Encounter Summary ---
Demographics + + + | Address | [address] | | | [place] [address] | + + + | Home Phone | | + + + | Preferred Language | Unknown | + + + | Marital Status | | + + + | Hindu Affiliation | Unknown | + + + | Race | White | + + + | Ethnic Group | Not or | + + + Author + + + | Author | [facility] | | | and [place] | + + + | Organization | [facility] | | | [...] [place], [place] | | | | | [address] | | + + + + + | Isabella "Tiki" | ECON | [address] | | | [place] | | [place], [place] | | | | | [address] | | + + + + + Care Team Providers + +------+ + | Care General Internal Medicine Doctor Name | Role | Phone | + +------+ + | Alen Bolanos MD | PCP | | + +------+ + Reason for Visit +--------+--------+ + | Reason | Onset | Comments | | | Date | | +--------+--------+ + | Other | 09/29/ | | | | 2018 | | +--------+--------+ + Encounter Details +--------+ + + + + | Date | Type | Department | Care Team | Description | +--------+ + + + + | 09/29/ | Telephone | [facility] | Ashu Singh, DO | Other | | 2018 | | MED CTR RADIATION | [address] [facility] | | | | | ONCOLOGY CLINIC [address] | [place] | | | | | [address] | [address] | | | | | [place] [address] | | | | | | [phone] | | | +--------+ + + + [...] Telephone Encounter - Emmy Vanessa RN - 09/29/2018 1:28 PM PDTCall returned to leanna bishnu's daughter Tiki, she states that her dad, Guilherme and her mother were given a handout y during father's appointment and then gave it to her, she misplaced it and was hopin g to get the information over the phone verbally. Patient and had been provided a hando ut on Domeboro soaks, information and education on how to do domeboro soaks provided to Paulette blum via phone, she verbalizes her understanding and appreciation. No further questions at th is time. elephone Encounter - Aun Huffman - 09/29/2018 12:19 PM PDTPlease call daughter Tiik @ . MEDICATIONS Tdocumented in this encounter Plan of Treatment +--------+ + + + + | Date | Type | Specialty | Care Team | Description | +--------+ + + + + | 03/26/ | Appointment | Radiation Oncology | Papito Alvarez MD | | | 2019 | | | [address] | | | | | | [place] | | | | | | [id number] | | | | | | | | +--------+ + + + + documented as of this encounter Visit Diagnoses Not on filedocumented in this encounter
--- OUTSIDE RECORDS SUMMARY | ~2020-03-03 | XMS | Encounter Summary ---
Demographics + + + | Address | [address] | | | [place] [address] | + + + | Home Phone [...] [place], [place] | | | | | [address] | | + + + + + | Isabella "Tiki" | ECON | [address] | | | [place] | | [place], [place] | | | | | [address] | | + + + + + Care Team Providers + +------+ + | Care Spiritual Advisor Name | Role | Phone | + +------+ + | Alen Bolanos MD | PCP | | + +------+ + Reason for Visit + +--------+ + | Reason | Onset | Comments | | | Date | | + +--------+ + | Medication Refill | 09/07/ | | | | 2018 | | + +--------+ + Encounter Details +--------+--------+ + + + | Date | Type | Department | Care Team | Description | +--------+--------+ + + + | 09/07/ | Refill | [facility] | Ashu Singh DO | Medication Refill | | 2018 | | [facility] | [address] [facility] | | | | | ONCOLOGY CLINIC [address] | [place] | | | | | [address] | [address] | | | | | [place] [address] | | | | | | [phone] | | | +--------+--------+ + + + [...] Telephone Encounter - Danielle Robb RN - 09/07/2018 11:42 AM PSTDr. Singh has increased g abapentin dose to 900 mg three times daily.Electronically signed by Danielle Robb RN at 11:43 AM PSTdogabby in this encounter Plan of Treatment +--------+ + + + + | Date | Type | Specialty | Care Team | Description | +--------+ + + + + | 03/26/ | Appointment | Radiation Oncology | Papito Alvarez MD | | | 2019 | | | [address] | | | | | | [place] | | | | | | [id number] | | | | | | | [...]
--- OUTSIDE RECORDS SUMMARY | ~2020-03-03 | XMS | Encounter Summary ---
Demographics + + + | Address | [address] | | | [place] [address] | + + + | Home Phone | | + + + | Preferred Language | Unknown | + + + | Marital Status | | + + + | Gnosticism Affiliation | NRP | + + + | Race | White | + + + | Ethnic Group | Not or | + + + Author + + + | Author | [facility] | + + + | Organization | [facility] | + + + | Address | Unknown | + + + | Phone | Unavailable | + + + Support + + + + + | Name | Relationship | Address | Phone | + + + + + | Alanna Merino | DAT | [address] | | | | | [address] | | | | | [address] | | + + + + + Care Team Providers + +------+ + | Care Mattress Stripper Name | Role | Phone | + [...] | | | | [place] [address] | | | | | | [phone] | | | | | | | [...]
--- OUTSIDE RECORDS SUMMARY | ~2020-03-03 | XMS | Encounter Summary ---
Demographics + + + | Address | [address] | | | [place] [address] | + + + | Home Phone | | + + + | Preferred Language | Unknown | + + + | Marital Status | | + + + | Cheondoism Affiliation | Unknown | + + + [...] [place], [place] | | | | | [address] | | + + + + + | Isabella "Tiki" | ECON | [address] | | | [place] | | [place], [place] | | | | | [address] | | + + + + + Care Team Providers + +------+ + | Care Office Assistant Name | Role | Phone | [...] | | unspecified | MD Dequan | [address] | | | | | type | [address] | KEM JAFFE | | | | | Procedures | [place] | [place] | | | | | CT Urogram w | [place] | [address] | | | | | wo Contrast | [address] | Phone: | | | | | [address] | Phone: | [phone] | | | | | SCAN,ABDOMEN | [phone] | Fax: | | | | | T AND | Fax: | [phone] | | | | | PELVIS,COMBO | [phone] | | +--------+--------+ + + + + [...] | | | | Giselle Maldonado | [place] [address] | | | | | | [place], [place] | Phone: | | | | | | [address] | [phone] | | | | | | Phone: | Fax: | | | | | | [phone] | [phone] | | | | | | Fax: | | | | | | | [phone] | | +--------+--------+ + + + + Encounter Details +--------+---------+ + + + | Date | Type | Department | Care Team | Description | +--------+---------+ + + + | 11/21/ | Office | [facility] | Radhames Rdz | Hematuria, | | 2019 | Visit | [address] | MD [address] | unspecified type | | | | [place] | [place] | (Primary Dx) | | | | [address] | [place] [address] | | | | | [phone] | [phone] | | | | | | | [...] any toxic exposures, but was in the [employer] for 20 years, with 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 One of his duty stations was not [place]. He recently had a basal cell cancer of his neck radiated, and following the radiation thera py, he developed a left carotid obstruction, which required angioplasty and stent placement at [facility]. While at [facility], he had gross hematuria, which was otherwise asymptomatic. He denie s any instrumentation. He has had no prior episodes of gross hematuria, and has very little in the way of bladder irritative or obstructive voiding symptoms at present. His urinalysis today was positive fo r blood, and his postvoid residual was only 38 cc. I reviewed the labs from [facility] this last October, and his kidney function [...] to have the CT urogram performed in [place], and will return for his urin e cytology and cystoscopy within the next 2 weeks. Guilherme is instructed to resume his usual and customary care with his primary care provider. I asked Guilherme to notify me if there were any difficulties voiding, or UTI symptoms, or fla nk pain, or for any questions or concerns whatsoever. This document was generated in part using [employer] voice recognition software. Although ever y effort is made to edit the content, physician underwriter errors may occur. Occasional wrong word or [...] | 2019 | | | [address] [facility] | | | | | | [place] | | | | | | [id number] | | | | | | | [...] [address] | [place] | [phone] | | [facility] | | [address] | | | - LABORATORY | | [...] [address] | [place] | [phone] | | [facility] | | [address] | | | - LABORATORY | | [...] 1.001 - 1.030 | | | | [place], | | | | | | UA, [...]
--- OUTSIDE RECORDS SUMMARY | ~2020-03-03 | XMS | Encounter Summary ---
Demographics + + + | Address | [address] | | | [place] [address] | + + + | Home Phone | | + + + | Preferred Language | Unknown | + + + | Marital Status | | + + + | Hindu Affiliation | Unknown | + + + | Race | White | + + + | Ethnic Group | Not or | + + + Author + + + | Author | [facility] | | | and [place] | + + + | Organization | [facility] | | | and [place] | + + + | Address | Unknown | + + + | Phone | Unavailable | + + + Support + + + + + | Name | Relationship | Address | Phone | + + + + + | Alanna Jorge | ECON | [address] | | | | | [place], [place] | | | | | [address] | | + + + + + | Isabella "Tiki" | ECON | [address] | | | [place] | | [place], [place] | | | | | [address] | | + + + + + Care Team Providers + +------+ + | Care Manager Quantitative Name | Role | Phone | + +------+ + | No, Physician | PCP | Unavailable | + +------+ + Reason for Visit + + + | Reason | Comments | + + + | Hematuria | | + + + Encounter Details +--------+---------+ + + + | Date | Type | Department | Care Team | Description | +--------+---------+ + + + | 12/27/ | Office | [facility] | Radhames Rdz | Hematuria, | | 2019 | Visit | [address] | [address] | unspecified type | | | | [place] | [place] | (Primary Dx); Benign | | | | [address] | [place] [address] | prostatic | | | | [phone] | [phone] | hyperplasia, | | | | | | unspecified whether | | | | | | lower urinary tract | | | | | | symptoms present | +--------+---------+ + + + Social History [...] + + + | Blood Pressure | 108/62 | 12/27/2018 9:52 AM | | | | | PDT | | + + + + + | Pulse | 80 | 12/27/2018 9:52 AM | | | | | PDT | | + + + + + | Temperature | - | - | | + + + + + | Respiratory Rate | 16 | 12/27/2018 9:52 AM | | | | | PDT | | + + + + + | Oxygen Saturation | - | - | | + + + + + | Inhaled Oxygen | - | - | | | Concentration | | | | + + + + + | Weight | 82.3 kg (181 lb 7 | 12/27/2018 9:52 AM | | | | oz) | PDT | | + + + + + | Height | 177 cm (5' 9.69") | 12/27/2018 9:52 AM | | | | | PDT | | + + + + + | Body Mass Index | 26.27 | 12/27/2018 9:52 AM | | | | | PDT | | + + + + + documented in this encounter Progress Winifred Eastman, Alternative Dispute Resolution Mediator - 12/27/2018 10:15 AM PDTFormatting of this note migh t be different from the original. Administrations This Visit gentamicin injection 80 mg Admin Date 12/27/2018 Action Given Dose 80 mg Route Intramuscular Administered By Winifred Marquez Alternative Dispute Resolution Mediator Patient tolerated injection well........... Winifred Marquez CMA on 12/27/18 at 10:24 Sent urine to [facility] for cytology via legal assistant with Reflex for UroVysion (FISH) if cytology is atypical or suspicious. ...........................................Winifred watson, TARIQ on 12/27/18 at 10:40 Radhames Carcamo MD - 12/27/2018 10:15 AM PDTFormatting of this note might be different fr om the original. Guilherme is a 63 y.o. male patient being seen today for a cystoscopy for gross hematuria jerald luation. A very pleasant gentleman with an off and on history of cigarette smoking for the last 40 y ears. He is a pleasant gentleman with a past history of duty in the [employer] for 20 year s. He recently is recovering from basal cell cancer and neck radiation, in which he develop ed a left carotid obstruction, and angioplasty. During that whole episode, he did have occasional gross hematuria. He is otherwise asympto matic for any significant bladder irritative or obstructive voiding symptoms. His CT urogra m was reviewed in the office this morning, and other than showing some slight scarring of hi s left kidney, I was unable to see any obvious uropathology. Cytology is currently pending. Cystoscopy is being undertaken today to complete his evaluation for his gross hematuria. Consent was obtained, and timeout performed. Past Medical History He has a past medical history of Acute ischemic left ICA stroke (HCC), Cancer of skin of ne ck, Carotid stenosis, left, Dyslipidemia, Hematuria, Hypertension, Kidney stones, Seasonal a llergies, TIA (transient ischemic attack), and Vascular dementia. Past Surgical History He has a past surgical history that includes Skin cancer excision; Left ICA stent 10/09/2018; Vasectomy; and Tonsillectomy. Family History: His family history includes Cancer [...] Allergies Medications: Outpatient Encounter Medications as of 12/27/2018 Medication Sig Dispense Refill aspirin 325 mg tablet Take 325 mg by mouth Daily. atorvaSTATin (LIPITOR) 40 mg tablet Take 40 mg by mouth nightly. lisinopril-hydrochlorothiazide (PRINZIDE,ZESTORETIC) 10-12.5 MG per tablet Take 1 table t by mouth Daily. omeprazole (PRILOSEC) 20 mg capsule Take 20 mg by mouth every morning (before breakfast ). Facility-Administered Encounter Medications as of 12/27/2018 Medication Dose Route Frequency Provider Last Rate Last Dose gentamicin injection 80 mg 80 mg Intramuscular Once Gene Dequan Rdz MD PHYSICAL EXAM Vitals: BP 108/62 | Pulse 80 | Resp 16 | Ht 1.77 m (5' 9.69") | Wt 82.3 kg (181 lb 7 oz ) | BMI 26.27 kg/m General: Awake, alert, in no acute distress. Speech is fluent. Appears to be stated age. Neck: Supple; radiation effect. Lungs: Normal respiratory effort, no wheezing, no stridor, no tachypnea. Back: No CVA tenderness. Abdomen: Soft, nontender. Extremities: Non-edematous. Neuro: Awake, alert, oriented. Psychiatric: Mood and affect are normal. Normal judgment. Skin: Warm and dry, no erythematous rash. Genitalia: No lesion, circumcised. Scrotum is supple and nonerythematous. Phallus is normal in appearance. Benign scrotal contents. Procedure: cystoscopy Consent form signed & time out form completed I discussed with Guilherme the indications for cystoscopy and the risks, benefits, and alterna tives of cystoscopy. Alternatives include doing nothing or seeking a second opinion. Risks i nclude but are not limited to bleeding, pain, infection, failure of the procedure, need for additional procedures, inherent risks of any surgical procedure and anesthesia. After obtaining informed consent, Guilherme was prepped and draped in a sterile fashion. Two p ercent xylocaine was used as a topical anesthetic. The flexible cystoscope was introduced into the urethra and into the bladder. The bladder w as systematically surveyed and investigated and was found to demonstrate small post void res idual, and grade 1-2 trabeculation. There were no areas of erythema, hyperplasia, or bladde r tumors identified. The ureteral orifices and trigone were normal in appearance. The cyst oscope was retroflexed and the bladder neck region was minimally obstructive in appearance. The cystoscope was slowly withdrawn and the prostate demonstrates 25 g of trilobar obstruct isaura hypertrophy. The anterior urethra is normal in appearance. The cystoscope is withdrawn. Guilherme tolerated the procedure well. There were no complicatio ns. To summarize, the cystoscopic exam demonstrated BPH only, with minimal bladder decompensat ion. DIAGNOSTIC DATA: Urinalysis this morning is negative for blood, nitrites, and leukocyte est erase. Lab Results Component Value Date PSA 0.71 11/21/2018 BUN and creatinine on 10/10/2018 were 19 and 1.08 respectively, with an EGFR of greater than 60. IMPRESSION: Total gross painless hematuria in a smoker, negative evaluation History of urolithiasis Basal cell cancer, left neck area PLAN: Guilherme has had a complete negative evaluation for his episode of gross hematuria 2 m onths ago. There is no obvious etiology of the source of bleeding. I have asked him to diane paz to watch his urine for any signs of bleeding, or any changes in his urinary symptoms. Otherwise, I would like to see him back in 1 year, with updated labs at that time. Patient instructed to resume usual and customary care with primary care provider. I asked Guilherme to notify me if there were any difficulties voiding, or UTI symptoms, or fla nk pain, or for any questions or concerns whatsoever. This document was generated in part using [employer] voice recognition software. Although ever y effort is made to edit the content, central supply clerk errors may occur. Occasional wrong word or sound alike substitutions may have occurred due to the inherent limitations of the voice recognition software. Please read the chart carefully and recognize, using context, where th lasha substitutions may have occurred. documented in th is encounter Plan of Treatment +--------+ + + + + | Date | Type | Specialty | Care Team | Description | +--------+ + + + + | 03/26/ | Appointment | Radiation Oncology | Papito Alvarez MD | | | 2019 | | | [address] | | | | | | [place] | | | | | | [address] | | | | | | | | +--------+ + + + + + +------+--------+ + + | Name | Type | Priori | Associated Diagnoses | Order Schedule | | | | ty | | | + +------+--------+ + + | Comprehensive | Lab | Routin | Hematuria, | Expected: | | Metabolic Panel | | e | unspecified type | 12/03/2019, Expires: | | | | | Benign prostatic | 06/28/2020 | | | | | hyperplasia, | | | | | | unspecified whether | | | | | | lower urinary tract | | | | | | symptoms present | | + +------+--------+ + + | PSA, Diagnostic | Lab | Routin | Hematuria, | Expected: | | | | e | unspecified type | 12/03/2019, Expires: | | | | | Benign prostatic | 06/28/2020 | | | | | hyperplasia, | | | | | | unspecified whether | | | | | | lower urinary tract | | | | | | symptoms present | | + +------+--------+ + + documented as of this encounter Procedures + +--------+ + + + | Procedure Name | Priori | Date/Time | Associated Diagnosis | Comments | | | ty | | | | + +--------+ + + + | POCT URINALYSIS, | Routin | 12/27/2018 | Hematuria, | Results for this | | AUTO WITH CONF | e | 9:52 AM | unspecified type | procedure are in the | | | | PDT | | results section. | + +--------+ + + + | MEDICAL CYTOLOGY | Routin | 12/27/2018 | Hematuria, | Results for this | | | e | 12:00 AM | unspecified type | procedure are in the | | | | PDT | | results section. | + +--------+ + + + | IMAGING REPORT - | | 12/12/2018 | | Results for this | | EXTERNAL SCAN | | 12:00 AM | | procedure are in the | | | | PDT | | results section. | + +--------+ + + + documented in this encounter Results POCT Urinalysis (12/27/2018 9:52 AM PDT) + + + + + + | Component | Value | Ref Range | Performed | Pathologist | | | | | At | Signature | + + + + + + | Color, UA, | Dark Yellow (A) | Yellow, Light | | | [...] 1.001 - 1.030 | | | | [place], | | | | | | UA, POC | | | | | + + + + + + | Blood, UA, | Negative | Negative | | | | POC | | | | | + + + + + + | pH, UA, POC | 5.5 | 5.0, 6.0, 7.0, | | | | | | 8.0, 5.5, 6.5, | | | | | | 7.5 | | | + + + + + + | Protein, | Negative | Negative | | | [...] + + | Urine | + + Medical Cytology (12/27/2018 12:00 AM PDT) + + | Specimen | + + | Urine - Urine | | specimen obtained by | | clean catch | | procedure (specimen) | + + + + + | Narrative | Performed At | + + + | THIS IS AN ADDENDUM REPORT ORDERING PHYSICIAN: Kendell | IN PATHOLOGY | | Radhames HANNAH PATIENT NAME: GUILHERME JORGE GENDER: M | [facility] | | : 1955 SPECIMEN(S): A URINE, VOIDED GROSS | | | DESCRIPTION: 90 ML OF CLEAR, YELLOW FLUID CLINICAL HISTORY: NO | | | CLINICAL DATA PROVIDED LABORATORY PREPARATIONS: 1 MONOLAYER | | | CYTOLOGIC INTERPRETATION: Urine, Voided: Atypical Urothelial Cells, | | | (AUC). DESCRIPTION: The preparation is adequately cellular. | | | Atypical urothelial cells are present. The nuclear to cytoplasmic | | | ratio is increased (>0.5) and either nuclear hyperchromasia, irregular | | | nuclear membranes, or irregular, coarse chromatin is present. | | | TECHNICAL NOTES: Fluorescent in-situ hybridization studies for | | | aneuploidy are being performed per request, and the results will be | | | reported by addendum. SPECIMEN ADEQUACY: Satisfactory for | | | Evaluation PERFORMING LABORATORY: Technical preparation was | | | performed by [facility], [address] [place] [address] | | | [place] [address] (Sheet Metal Engineer: Charbel Cummings D.O.; CLIA#: | | | [id number]). Professional interpretation was performed by [facility] | | | [facility], [address] [facility], | | | [place], [place] [address] (Sheet Metal Engineer: Adrián Porras MD; CLIA# | | | [id number]). REASON FOR ADDENDUM REPORT: FISH Analysis | | | Results: Negative Interpretation: Negative results seen for | | | the 3, 7, and 17 Centromeres and 9p21 probes. Interphase | | | fluorescence in situ hybridization (FISH) analysis was performed on | | | nuclei derived from a urine specimen. A normal signal pattern was | | | observed for edmund 3, edmund 7, edmund 17 and the 9p21 probes. This | | | represents a NEGATIVE result. Results from this test are intended | | | for use as a non-invasive method for the diagnosis and monitoring of | | | tumor recurrence in conjunction with cystoscopy in patients either | | | suspected of having or previously diagnosed with bladder cancer. The | | | results of this assay should be interpreted in association with other | | | pathology data. The use of automated FISH analysis for this assay has | | | been cleared by the FDA. The performance characteristics of this test | | | have been determined by [facility]. Nuclei Scored: | | | 100 Probe Set: Chrom 3: EDMUND 3, Chrom 7: EDMUND 7, Chrom 17: EDMUND | | | 17, Chrom 9: p16 Scoring Method: Computer Assisted Technology CPT | | | Code: 62671 # of Units: 1 PERFORMING LABORATORY: All controls | | | were within expected ranges. The Technical Component Processing and | | | Analysis of this test was completed at [facility], [address] | | | [place], [place] / [address] / [phone] / CLIA # | | | [id number]. / Sheet Metal Engineer(s): Eusebio Mesa M.D.. The Professional | | | Component of this test was completed at [facility] [place], [facility] | | | [place], [place] / [address] / [phone] / CLIA | | | #[id number] / Sheet Metal Engineer(s): Nadege Dupree M.D. | | | (Accession / CaseNo: [id number] / [id number]) Detailed report kept on | | | file. [facility] FISH test uses either FDA cleared | | | and/or analyte specific reagent (ASR) probes. This test was developed | | | and its performance characteristics determined by [facility] | | | Laboratories. It has not been cleared or approved by the U.S. Food and | | | Drug Administration (FDA). The FDA has determined that such clearance | | | or approval is not necessary. This test is used for clinical | | | purposes and should not be regarded as investigational or for | | | research. This laboratory is regulated under CLIA '88 as qualified to | | | perform high complexity testing. Interphase FISH does not include | | | examination of the entire chromosomal complement. Images that may be | | | included within this report are food service representative of the patient but not | | | all testing in its entirety and should not be used to render a result. | | | The CPT codes provided with our test descriptions are based on AMA | | | guidelines and are for informational purposes only. Correct CPT coding | | | is the sole responsibility of the billing alliance party. Please direct any | | | questions regarding coding to the payer being billed. | | | Diagnostician: Althea WILL ([facility]) Jailkeeper | | | Diagnostician: Adrián Porras MD Pathologist Electronically | | | Signed 01/10/2019 | | + + + + +---------+ + + | Performing | Address | City/State/Zipcode | Phone Number | | Organization | | | | + +---------+ + + | [facility] | | | | | [facility] | | | | + +---------+ + + IMAGING REPORT - EXTERNAL SCAN (12/12/2018 12:00 AM PDT) + + + | Narrative | Performed At | + + + | Ordered by an | | | unspecified provider. | | + + + documented in this encounter Visit Diagnoses + + | Diagnosis | + + | Hematuria, unspecified type - Primary | + + | Benign prostatic hyperplasia, unspecified whether lower urinary tract symptoms present | + + documented in this encounter Administered Medications + +--------+ +-------+------+ + | Medication Order | MAR | Action | Dose | Rate | Site | | | Action | Date | | | | + +--------+ +-------+------+ + | gentamicin injection 80 mg 80 | Given | 12/28/19 | 80 mg | | Glut-Rig | | mg, Intramuscular, ONCE, Tue | | 19 10:22 | | | ht | | 12/27/18 at 1030, For 1 dose, | | AM PDT | | | | | Indications: Surgical Prophylaxis | | | | | | + +--------+ +-------+------+ + +---+---+ | | | +---+---+ documented in this encounter
--- OUTSIDE RECORDS SUMMARY | ~2020-03-03 | XMS | Encounter Summary ---
Demographics + + + | Address | [address] | | | [place] [address] | + + + | Home Phone | | + + + | Preferred Language | Unknown | + + + | Marital Status | | + + + | Jainism Affiliation | Unknown | + + + | Race | White | + + + | Ethnic Group | Not or | + + + Author + + + | Author | [facility] | | | and [place] | + + + | Organization | [facility] | | [...] [place], [place] | | | | | [address] | | + + + + + | Isabella "Tiki" | ECON | [address] | | | [place] | | [place], [place] | | | | | [address] | | + + + + + Care Team Providers + +------+ + | Care Yard Operator Name | Role | Phone | [...] Closed | | Radiology | Diagnoses | Riegert, | [address] | | | | | Basal cell | Carly M, | [address] | | | | | carcinoma of | [place] [address] | [address], | | | | | skin of | [address] | [place] [address] | | | | | scalp and | [place], | Phone: | | | | | neck | [place] [address] | [phone] | | | | | Recurrent | Phone: | Fax: | | | | | basal cell | [phone] | [phone] | | | | | carcinoma | Fax: | | | | | | Procedures | [phone] | | | | | | CT Soft | | | | | | | Tissue Neck | | | | | | | w Contrast | | | +--------+--------+ + + + + Reason for Visit Diagnostic/Screening (Routine) +--------+--------+ + + + + | Status | Reason | Specialty | Diagnoses / | Referred By | Referred To | | | | | Procedures | Contact | Contact | +--------+--------+ + + + + | Closed | | Radiology | Diagnoses | Riegert, | [address] | | | | | Basal cell | Carly M, | [address] [place] | | | | | carcinoma of | MD [address] | [address], | | | | | skin of | [address] | [place] [address] | | | | | scalp and | [place], | Phone: | | | | | neck | [place] [address] | [phone] | | | | | Recurrent | Phone: | Fax: | | | | | basal cell | [phone] | [phone] | | | | | carcinoma | Fax: | | | | | | Procedures | [phone] | | | | | | CT Soft | | | | | | | Tissue Neck | | | | | | | w Contrast | | | +--------+--------+ + + + + Encounter Details +--------+ + + + + | Date | Type | Department | Care Team | Description | +--------+ + + + + | 05/09/ | Hospital | [facility] | Carly Jaime | Basal cell carcinoma | | 2019 | Encounter | MED [facility] [address] | M, MD [address] | of skin of scalp | | | | [place] [address], | [place], [place] | and neck ; Recurrent | | | | [place] [address] | [address] | basal cell | | | | [phone] | | carcinoma | +--------+ + + + + Social [...] 2020 | | | [address] | | | | | | [place] | | | | | | [phone] | | | | | | | | +--------+ + + + + documented as of this encounter Procedures + +--------+ + + + | Procedure Name | Priori | Date/Time | Associated Diagnosis | Comments | | | ty | | | | + +--------+ + + + | CT SOFT TISSUE NECK | Routin | 05/09/2019 | Basal cell | Results for this | | W CONTRAST | e | 1:16 PM | carcinoma of skin of | procedure are in the | | | | PST | scalp and neck | results section. | | | | | Recurrent basal cell | | | | | | carcinoma | | + +--------+ + + + documented in this encounter Results CT Soft Tissue Neck w Contrast (05/09/2019 1:16 PM PST) + + | Specimen | + + | | + + + + + | Impressions | Performed At | + + + | Postsurgical scarring/skin thickening is noted along the left | [facility] | | submandibular/lateral cervical soft tissues. This appears more | | | well-defined and slightly decreased in conspicuity when compared to | | | PET CT dated 07/12/2018. There is subtle ill-defined fat stranding | | | extending from the skin surface along the more anterior and right | | | para midline submandibular and right cervical soft tissues. -These | | | findings may represent postradiation scarring with residual/recurrent | | | neoplasm unable to be excluded. -If there is further concern, | | | repeat PET/CT may be obtained for improved sensitivity. No | | | suspicious lymphadenopathy. Moderate stenosis of the left most | | | proximal ICA. Dictated and Signed by: Edy Amos MD | | | Electronically signed: 05/09/2019 2:49 PM | | + + + + + + | Narrative | Performed At | + + + | CT SOFT TISSUE NECK W CONTRAST 05/09/2019 11:57 AM HISTORY: | [facility] | | recurrent basal cell carcinoma. COMPARISON: PET CT dated 07/12/2018. | | | PROTOCOL: Thin section axial CT images of the neck soft tissues | | | were obtained after administration of 75 mL Omnipaque 350. Coronal | | | and sagittal reformations were acquired. FINDINGS: Visualized | | | brain and skull base demonstrate no acute findings. Paranasal sinuses | | | are clear. The nasopharynx, oropharynx, epiglottis, hypopharynx, | | | and larynx are normal. The oral cavity is unremarkable. The | | | parapharyngeal, retropharyngeal, and house principal spaces are normal. | | | The parotid glands and submandibular glands are normal. The thyroid | | | is unremarkable. No enlarged lymph nodes are visualized of the | | | neck. Postsurgical scarring/skin thickening is noted along the | | | left submandibular/lateral cervical soft tissues. This appears more | | | well-defined and slightly decreased in conspicuity when compared to | | | PET CT dated 07/12/2018. There is subtle ill-defined fat stranding | | | extending from the skin surface along the more anterior and right | | | para midline submandibular and right cervical soft tissues. No | | | enlarged regional lymph nodes. There is a single left supraclavicular | | | nodule which is slightly prominent measuring up to 7 mm in short | | | axis which is unchanged since that/CT. Mild stenosis at the level | | | of the carotid bulb and proximal ICA with approximately 30% narrowing | | | of the proximal right ICA. Moderate superficial plaque involving the | | | left carotid bulb with only mild narrowing. Superficial plaque | | | involving the proximal left ICA causes at least 40% luminal narrowing. | | | There are no acute osseous abnormalities. The upper chest | | | shows no acute findings. Centrilobular emphysematous disease is seen | | | involving the lung apices. | | + + + + + | Procedure Note | + + | Surya, Rad Results In - 05/09/2019 2:[address] SOFT TISSUE NECK W CONTRAST | | 05/09/2019 11:57 AMHISTORY: recurrent basal cell carcinoma.COMPARISON: PET CT dated | | 07/12/2018.PROTOCOL: Thin section axial CT images of the neck soft tissues were | | obtainedafter administration of 75 mL Omnipaque 350. Coronal and sagittal | | reformationswere acquired.FINDINGS:Visualized brain and skull base demonstrate no acute | | findings. Paranasal sinusesare clear.The nasopharynx, oropharynx, epiglottis, | | hypopharynx, and larynx are normal. Theoral cavity is unremarkable. The parapharyngeal, | | retropharyngeal, and masticatorspaces are normal.The parotid glands and submandibular | | glands are normal. The thyroid isunremarkable.No enlarged lymph nodes are visualized of | | the neck.Postsurgical scarring/skin thickening is noted along the | | leftsubmandibular/lateral cervical soft tissues. This appears more well-defined | | andslightly decreased in conspicuity when compared to PET CT dated 07/12/2018. Thereis | | subtle ill-defined fat stranding extending from the skin surface along themore anterior | | and right para midline submandibular and right cervical softtissues. No enlarged | | regional lymph nodes. There is a single leftsupraclavicular nodule which is slightly | | prominent measuring up to 7 mm in shortaxis which is unchanged since that/CT.Mild | | stenosis at the level of the carotid bulb and proximal ICA withapproximately 30% | | narrowing of the proximal right ICA. Moderate superficialplaque involving the left | | carotid bulb with only mild narrowing. Superficialplaque involving the proximal left ICA | | causes at least 40% luminal narrowing.There are no acute osseous abnormalities.The | | upper chest shows no acute findings. Centrilobular emphysematous disease isseen | | involving the lung apices.IMPRESSION: Postsurgical scarring/skin thickening is noted | | along the leftsubmandibular/lateral cervical soft tissues. This appears more | | well-defined andslightly decreased in conspicuity when compared to PET CT dated | | 07/12/2018. Thereis subtle ill-defined fat stranding extending from the skin surface along | | themore anterior and right para midline submandibular and right cervical softtissues. | | -These findings may represent postradiation scarring with residual/recurrentneoplasm | | unable to be excluded. -If there is further concern, repeat PET/CT may be obtained for | | improvedsensitivity.No suspicious lymphadenopathy.Moderate stenosis of the left most | | proximal ICA.Dictated and Signed by: Edy Amos MD Electronically signed: 05/09/2019 | | 2:49 PM | | | |Mild stenosis at the level of the carotid bulb and proximal ICA with | |approximately 30% narrowing of the proximal right ICA. Moderate superficial | |plaque involving the left carotid bulb with only mild narrowing. Superficial | |plaque involving the proximal left ICA causes at least 40% luminal narrowing. | | | |There are no acute osseous abnormalities. | | | |The upper chest shows no acute findings. Centrilobular emphysematous disease is | |seen involving the lung apices. | | | |IMPRESSION: | |Postsurgical scarring/skin thickening is noted along the left | |submandibular/lateral cervical soft tissues. This appears more well-defined and | |slightly decreased in conspicuity when compared to PET CT dated 07/12/2018. There | |is subtle ill-defined fat stranding extending from the skin surface along the | |more anterior and right para midline submandibular and right cervical soft | |tissues. | |-These findings may represent postradiation scarring with residual/recurrent | |neoplasm unable to be excluded. | |-If there is further concern, repeat PET/CT may be obtained for improved | |sensitivity. | | | |No suspicious lymphadenopathy. | | | |Moderate stenosis of the left most proximal ICA. | | | |Dictated and Signed by: Edy Amos MD | | Electronically signed: 05/09/2019 2:49 PM | + + + +---------+ + + | Performing | Address | City/State/Zipcode | Phone Number | | Organization | | | | + +---------+ + + | [facility] | | | | + +---------+ + + documented in this encounter Visit Diagnoses + + | Diagnosis | + + | Basal cell carcinoma of skin of scalp and neck Basal cell carcinoma of scalp and | | skin of neck | + + | Recurrent basal cell carcinoma Basal cell carcinoma of skin, site unspecified | + + documented in this encounter Administered Medications + +--------+ +--------+------+------+ | Medication Order | MAR | Action | Dose | Rate | Site | | | Action | Date | | | | + +--------+ +--------+------+------+ | iohexol (OMNIPAQUE 350) 350 | Given | 05/09/20 | 75 mLs | | | | mg/mL injection 75 mL 75 mL, | | 19 1:16 | | | | | Intravenous, ONCE PRN, Other, for | | PM PST | | | | | CT contrast study, Starting Wed | | | | | | | 05/09/19 at 1316, For 1 dose, | | | | | | | Radiology | | | | | | + +--------+ +--------+------+------+ +---+---+ | | | +---+---+ documented in this encounter
--- OUTSIDE RECORDS SUMMARY | ~2020-03-03 | XMS | Encounter Summary ---
Demographics + + + | Address | [address] | | | [place] [address] | + + + | Home Phone | | + + + | Preferred Language | Unknown | + + + | Marital Status | | + + + | Hoahaoism Affiliation | NRP | + + + | Race | White | + + + | Ethnic Group | Not or | + + + Author + + + | Author | [facility] | + + + | Organization | [facility] | + + + | Address | Unknown | + + + | Phone | Unavailable | + + + Support + + + + + | Name | Relationship | Address | Phone | + + + + + | Alanna Merino | DAT | [address] | | | | | [address] | | | | | [address] | | + + + + + Care Team Providers + +------+ + | Care Washer Carcass Name | Role | Phone | + [...] as of this encounter Progress Notes Interface, Creel Operator In - 02/01/2006 1:02 AM PDTSURGEON: Camron Coon M.D. MACHINE SIZER: Renetta Carlos M.D. RESIDENT: Rayray Win M.D. [...] chavira stitch, and review of final result. Renata A 1: 02 AM PDTInterface, Creel Operator In - 02/01/2006 1:02 AM PDTSURGEON: Camron Coon M.D. MACHINE SIZER: Renetta Carlos M.D. RESIDENT: Rayray Win M.D. [...] Renetta Carlos M.D. Surgery Fellow, Dermatology Ash Ramirez M.D. Resident, Dermatology Pursuant to federal Medicare [...]
--- OUTSIDE RECORDS SUMMARY | ~2020-03-03 | XMS | Encounter Summary ---
Demographics + + + | Address | [address] | | | [place] [address] | + + + | Home Phone | | + + + | Preferred Language | Unknown | + + + | Marital Status | | + + + | Yarsani Affiliation | Unknown | + + + | Race | White | + + + | Ethnic Group | Not or | + + + Author + + + | Author | [facility] | | | and [place] | + + + | Organization | [facility] | | | and [...] [place], [place] | | | | | [address] | | + + + + + | Isabella "Tiki" | ECON | [address] | | | [place] | | [place], [place] | | | | | [address] | | + + + + + Care Team Providers + +------+ + | Care Track Inspector Name | Role | Phone | + +------+ + | Alen Bolanos MD | PCP | | + +------+ + Encounter Details +--------+ + + + + | Date | Type | Department | Care Team | Description | +--------+ + + + + | 07/24/ | Imaging | [facility] | Provider, | | | 2019 | Exam | [facility] | MD [address] | | | | | IMAGING [address] | [address] | | | | | [address] [place] | [place] [address] | | | | | [place] [address] | | | | | | [phone] | | | +--------+ + + + [...] [place] | | | | | | [address] | | | | | | | [...] for this | | | e | 11:30 AM | | procedure are in the | | | | PST | | results section. | + +--------+ + + + documented in this encounter Results PET CT Whole Body (07/12/2018 11:30 AM PST) + + | Specimen | [...]
--- OUTSIDE RECORDS SUMMARY | ~2020-03-03 | XMS | Encounter Summary ---
Demographics + + + | Address | [address] | | | [place] [address] | + + + | Home Phone | | + + + | Preferred Language | Unknown | + + + | Marital Status | | + + + | Yazdanism Affiliation | Unknown | + + + | Race | White | + + + | Ethnic Group | Not or | + + + Author + + + | Author | [facility] | | | and [place] | + + + | Organization | [facility] | | | [...] [place], [place] | | | | | [address] | | + + + + + | Isabella "Tiki" | ECON | [address] | | | [place] | | [place], [place] | | | | | [address] | | + + + + + Care Team Providers + +------+ + | Care Mortgage Banker Name | Role | Phone | + [...] + + | 08/08/ | Hospital | [facility] | Ashu Singh DO | | | 2019 | Encounter | MED [address] | [address] | | | | | [place], | [place] | | | | | [place] [address] | [id number] | | | | | [phone] | | | +--------+ + + + [...] [place] | | | | | | [address] | | | | | | | [...]
--- OUTSIDE RECORDS SUMMARY | ~2020-03-03 | XMS | Encounter Summary ---
Demographics + + + | Address | [address] | | | [place] [address] | + + + | Home Phone [...] [place], [place] | | | | | [address] | | + + + + + | Isabella "Tiki" | ECON | [address] | | | [place] | | [place], [place] | | | | | [address] | | + + + + + Care Team Providers + +------+ + | Care Diving Judge Name | Role | Phone | + [...] + + | 08/14/ | [facility] | Ashu Singh DO | Medication Refill | | 2018 | | MED CTR MEDICAL | [address] [facility] | | | | | ONCOLOGY CLINIC [address] | [place] | | | | | [address] | [address] | | | | | [place] [address] | | | | | | [phone] | | | +--------+--------+ + + + [...] [place] | | | | | | [address] | | | | | | | | +--------+ + + + + documented as of this encounter Visit Diagnoses + + | Diagnosis | + + | Recurrent basal cell carcinoma - Primary Basal cell carcinoma of skin, site | | unspecified | + + documented in this encounter
--- OUTSIDE RECORDS SUMMARY | ~2020-03-03 | XMS | Encounter Summary ---
Demographics + + + | Address | [address] | | | [place] [address] | + + + | Home Phone | | + + + | Preferred Language | Unknown | + + + | Marital Status | | + + + | Mandaeism Affiliation | NRP | + + + | Race | White | + + + | Ethnic Group | Not or | + + + Author + + + | Author | [facility] | + + + | Organization | [facility] | + + + | Address | Unknown | + + + | Phone | Unavailable | + + + Support + + + + + | Name | Relationship | Address | Phone | + + + + + | Alanna Merino | DAT | [address] | | | | | [address] | | | | | [address] | | + + + + + Care Team Providers + +------+ + | Care Instrument Operator Name | Role | Phone | + +------+ + | Washington Mason MD | PCP | | + +------+ + Encounter Details +--------+ + + + + | Date | Type | Department | Care Team | Description | +--------+ + + + + | 01/30/ | Results | LAB [facility] [address] | Other, Faculty | | | 1997 | Only | [address] | [phone] | | | | | [place] | | | | | | [address] | | | | | | [phone] | | | +--------+ + + + [...] | + +--------+ + + + | DERMATOPATHOLOGY(CON | Routin | 01/30/1998 | | Results for this | | SULT) | e | | | procedure are in the | | | | | | results section. | + +--------+ + + + | DERMATOPATHOLOGY(CON | Routin | 01/30/1998 | | Results for this | | SULT) | e | | | procedure are in the | | | | | | results section. | + +--------+ + + + documented in this encounter Results DERMATOPATHOLOGY(CONSULT) (01/30/1998) + + + + + + | Component | Value | Ref Range | Performed | Pathologist | | | | | At | Signature | + + + + + + | DERMATOPATH | SOURCE OF SPECIMEN: SEE | | [facility] | | | (CONSULT) | RESULTS | | DEPARTMENT | | | | Preliminary | | OF | | | | History:CLINICAL | | PATHOLOGY | | | | HISTORYPunch, Lt. neck; | | | | | | nummular scaling lesion | | | | | | on neck x6yrs.; R/o | | | | | | actinickeratosis; R/O | | | | | | dermatophyte Dear | | | | | | Boy: In Guilherme | | | | | | [place]'s left neck skin | | | | | | biopsy there are | | | | | | aggregates of cellswith | | | | | | hyperchromatic nuclei, | | | | | | scant cytoplasm and | | | | | | palisading of | | | | | | theperipheral nuclei | | | | | | emanating from the | | | | | | undersurface of the | | | | | | epidermis. FINAL | | | | | | DIAGNOSISBASAL CELL | | | | | | CARCINOMA, SUPERFICIAL | | | | | | TYPE. There is | | | | | | also focal calcium | | | | | | deposition and moderate | | | | | | solar elastosis, aswell | | | | | | as lichenification of | | | | | | the epidermis. | | | | | | Thanks for referring | | | | | | this consultation.1 | | | | | | slide, [id number] returned | | | | | | to Dr. Junior. | | | | | | CRW:mm 02/07/98 | | | | | | My electronic | | | | | | signature indicates that | | | | | | I have personally | | | | | | reviewed alldiagnostic | | | | | | slides, the gross and/or | | | | | | microscopic portion of | | | | | | thisreport and | | | | | | formulated the final | | | | | | diagnosis. | | | | + + + + + + + + | Specimen | + + | Other | + + + + + + + | Performing | Address | City/State/Zipcode | Phone Number | | Organization | | | | + + + + + | [facility] DEPARTMENT | [address] [facility] | [place] [address] | | | PATHOLOGY | [address] | | | + + + + + | [facility] DEPARTMENT OF | [address] [facility] | [place] [address] | | | PATHOLOGY | [address] | | | + + + + + DERMATOPATHOLOGY(CONSULT) (01/30/1998) + + + + + + | Component | Value | Ref Range | Performed | Pathologist | | | | | At | Signature | + + + + + + | DERMATOPATH | SOURCE OF SPECIMEN: SEE | | [facility] | | | (CONSULT) | RESULTS | | DEPARTMENT | | | | Preliminary | | OF | | | | History:SUPPLEMENTAL | | PATHOLOGY | | | | REPORT ADDENDUM: | | | | | | Deeper sections show | | | | | | changes similar to those | | | | | | seen in theinitial | | | | | | sections of BASAL CELL | | | | | | CARCINOMA, SUPERFICIAL | | | | | | TYPE. 4 slides, S# | | | | | | [id number] returned to | | | | | | Dr. Junior. | | | | | | CRW:mm 02/12/98 | | | | | | My electronic | | | | | | signature indicates that | | | | | | I have personally | | | | | | reviewed alldiagnostic | | | | | | slides, the gross and/or | | | | | | microscopic portion of | | | | | | thisreport and | | | | | | formulated the final | | | | | | diagnosis. | | | | + + + + + + + + | Specimen | + + | Other | + + + + + + + | Performing | Address | City/State/Zipcode | Phone Number | | Organization | | | | + + + + + | [facility] | [facility] | [place] [address] | | | PATHOLOGY | [address] | | | + + + + + | [facility] | [facility] | [place] [address] | | | PATHOLOGY | [address] | | | + + + + + documented in this encounter Visit Diagnoses Not on filedocumented in this encounter"
--- OUTSIDE RECORDS SUMMARY | ~2020-03-03 | XMS | Encounter Summary ---
Demographics + + + | Address | [address] | | | [place] [address] | + + + | Home Phone [...] [place], [place] | | | | | [address] | | + + + + + | Isabella "Tiki" | ECON | [address] | | | [place] | | [place], [place] | | | | | [address] | | + + + + + Care Team Providers + +------+ + | Care Color Worker Name | Role | Phone | [...] + + | 10/06/ | Telephone | [facility] | Ashu Singh, DO | Other | | 2019 | | MED CTR MEDICAL | [address] [facility] | | | | | ONCOLOGY CLINIC [address] | [place] | | | | | [address] | [address] | | | | | [place] [address] | | | | | | [phone] | | | +--------+ + + + [...] message with call back number.Electronically signed by Emym Vanessa RN at 2018 4:17 PM PDTTelephone Encounter - Cody Sharif - 10/06/2018 3:39 PM PDTPatients chantelle veliz called, pt had a massive stroke last night and a small one today. He is @ [facility] now pending transfer to [facility]. Patient is scheduled to see a derm on Tuesday, she doesn't know who it is but if there is an y way we can contact them and tell them he won't be coming the family would appreciate it. She said the doctor's @ [facility] think the RAD broke up a clot in his neck causing the stroke [phone] if you need to call her. documented [...] [place] | | | | | | [id number] | | | | | | | | +--------+ + + + + documented as of this encounter Visit Diagnoses Not on filedocumented in this encounter
--- OUTSIDE RECORDS SUMMARY | ~2020-03-03 | XMS | Encounter Summary ---
Demographics + + + | Address | [address] | | | [place] [address] | + + + | Home Phone | | + + + | Preferred Language | Unknown | + + + | Marital Status | | + + + | Taoism Affiliation | Unknown | + + + | Race | White | + + + | Ethnic Group | Not or | + + + Author + + + | Author | [facility]erged With [facility] | | | and [place] | + + + | Organization | Merged With [facility] | | | [...] [place], [place] | | | | | [address] | | + + + + + | Isabella "Tiki" | ECON | [address] | | | [place] | | [place], [place] | | | | | [address] | | + + + + + Care Team Providers + +------+ + | Care Track Surfacing Machine Operator Name | Role | Phone | + +------+ + | No, Physician | PCP | Unavailable | + +------+ + Reason for Visit +--------+--------+ + | Reason | Onset | Comments | | | Date | | +--------+--------+ + | Other | 09/19/ | | | | 2019 | | +--------+--------+ + Encounter Details +--------+ + + + + | Date | Type | Department | Care Team | Description | +--------+ + + + + | 09/19/ | Telephone | [facility] | Carly Jaime | Other | | 2019 | | MED CTR RADIATION | MD Paulette [address] | | | | | ONCOLOGY CLINIC [address] | [place], [place] | | | | | [address] [facility] | [address] | | | | | [place] [address] | | | | | | [phone] | | | +--------+ + + + [...] Telephone Encounter - Emmy Vanessa RN - 09/20/2019 8:59 AM PDTCall placed to sharee orourke's Alanna to inquire on how her is doing (patient is PAMUNKEY and has some communi cation issues) she says that Miguel A is doing well and there are no concerns at this time, I s tarted to tell her I was calling in regards to his appointment next week, before I could exp brianna that it was due to COVID-19 we are rescheduling non-urgent follow ups to limit patient exposure, she interrupted and said due to personal/family illness this appointment would nee d to be put on hold and that we would need to contact her daughter Tiki in the future with all future appointment scheduling. I let her know that I would change this in the patient's chart and our schedulers would make sure that the current appointment gets rescheduled with Tiki. documented in this encounter Plan of Treatment [...] [place] | | | | | | [address] | | | | | | | | +--------+ + + + + documented as of this encounter Visit Diagnoses Not on filedocumented in this encounter
--- OUTSIDE RECORDS SUMMARY | ~2020-03-03 | XMS | Encounter Summary ---
Demographics + + + | Address | [address] | | | [place] [address] | + + + | Home Phone | | + + + | Preferred Language | Unknown | + + + | Marital Status | | + + + | Jewish Affiliation | Unknown | + + + | Race | White | + + + | Ethnic Group | Not or | + + + Author + + + | Author | [facility] | | | and [place] | + + + | Organization | [facility] | | | [...] [place], [place] | | | | | [address] | | + + + + + | Isabella "Tiki" | ECON | [address] | | | [place] | | [place], [place] | | | | | [address] | | + + + + + Care Team Providers + +------+ + | Care Staff Assistant Name | Role | Phone | [...] + + | 09/19/ | Telephone | [facility] | Carly Jaime | Other | | 2019 | | MED CTR RADIATION | MD Paulette [address] | | | | | ONCOLOGY CLINIC [address] | [place], [place] | | | | | [address] [facility] | [address] | | | | | [place] [address] | | | | | | [phone] | | | +--------+ + + + [...] on how her is doing (patient is SOLOMON and has some communi cation issues) she [...] [place] | | | | | | [address] | | | | | | | | +--------+ + + + + documented as of this encounter Visit Diagnoses Not on filedocumented in this encounter
--- OUTSIDE RECORDS SUMMARY | ~2020-03-03 | XMS | Encounter Summary ---
Demographics + + + | Address | [address] | | | [place] [address] | + + + | Home Phone | | + + + | Preferred Language | Unknown | + + + | Marital Status | | + + + | Latter Day Affiliation | NRP | + + + [...] [place] | | | | | [address] | | + + + + + Care Team Providers + +------+ + | Care Beer Cooler Name | Role | Phone | + +------+ + | Washington Mason MD | PCP | | + +------+ + Encounter Details +--------+ + + + + | Date | Type | Department | Care Team | Description | +--------+ + + + + | 11/07/ | Results | Dermatology | Ward Jimenez, | | | 2008 | Only | Medical at [facility] [address] | [address] | | | | | [address] [place] | [facility] [place] | | | | | for Health and | [address] | | | | | [facility] [address], | [phone] | | | | | 16th Floor | | | | | | [place], [place] | | | | | | [address] | | | | | | [phone] | | | +--------+ + + + [...] + + | DERMATOPATHOLOGY(WET | Routin | 11/07/2008 | | Results for this | | [facility]) | e | | | procedure are in the | | | | | | results section. | + +--------+ + + + documented in this encounter Results DERMATOPATHOLOGY(WET [place]) (11/07/2008) + + + + + + | Component | Value | Ref Range | Performed | Pathologist | | | | | At | Signature | + + + + + + | DERMATOPATH | SOURCE OF SPECIMEN:A | | | | | OLOGY(WET | FIRST TISSUE LEVEL IV | | | | | MNT) | [id number] | | | | | | SPECIMEN:B FIRST TISSUE | | | | | | LEVEL IV [id number] | | | | | | OF SPECIMEN:C FIRST | | | | | | TISSUE LEVEL IV | | | | | | [id number] | | | | | | DESCRIPTION:A: Shave, | | | | | | lt. lat. neck ant., hx | | | | | | sclerosing BCC lt. neck | | | | | | w/multiple eryth.scaly | | | | | | papules in/near scar, | | | | | | ?recently on Efudex for | | | | | | SCC is in area, SCC vsAK | | | | | | vs BCCB: Shave, lt. | | | | | | lat. neck sup., hx | | | | | | sclerosing BCC lt. neck | | | | | | w/multiple eryth.scaly | | | | | | papules in/near scar, | | | | | | ?recently on Efudex for | | | | | | SCC is in area, SCC vsAK | | | | | | vs BCCC: Shave, lt. | | | | | | lat. neck post., hx | | | | | | sclerosing BCC lt. neck | | | | | | w/multipleeryth. scaly | | | | | | papules in/near scar, | | | | | | ?recently on Efudex for | | | | | | SCC is in area,SCC vs AK | | | | | | vs BCCGROSS | | | | | | DESCRIPTION:A: | | | | | | Anterior left lateral | | | | | | neck: The specimen is | | | | | | received in | | | | | | formalin,labeled A, with | | | | | | the patient's name and | | | | | | consists of a madison and | | | | | | brown shavebiopsy | | | | | | measuring 0.4 x 0.3cm. | | | | | | The specimen is | | | | | | bisected and | | | | | | entirelysubmitted in one | | | | | | cassette.B: Superior | | | | | | left lateral neck: The | | | | | | specimen is received in | | | | | | formalin,labeled B, | | | | | | with the patient's name | | | | | | and consists of a madison | | | | | | and brown shavebiopsy | | | | | | measuring 0.5 x 0.4cm. | | | | | | The specimen is | | | | | | bisected and | | | | | | entirelysubmitted in one | | | | | | cassette.C: Posterior | | | | | | left lateral neck: | | | | | | The specimen is | | | | | | received in | | | | | | formalin,labeled C, with | | | | | | the patient's name and | | | | | | consists of a madison and | | | | | | brown shavebiopsy | | | | | | measuring 0.9 x 0.6cm. | | | | | | The specimen is | | | | | | trisected and | | | | | | entirelysubmitted in one | | | | | | cassette.MICROSCOPIC | | | | | | DESCRIPTION:A: In the | | | | | | A specimen there is | | | | | | scale-crust overlying | | | | | | small, irregularlysized | | | | | | aggregates of basaloid | | | | | | epithelial cells with | | | | | | peripheral | | | | | | nuclearpalisading and | | | | | | retraction artifact in | | | | | | the upper dermis.B: | | | | | | There are irregularly | | | | | | sized aggregates of | | | | | | basaloid epithelial | | | | | | cells,some of them with | | | | | | hyperchromatic nuclei | | | | | | and scant cytoplasm. | | | | | | In some areasthere is | | | | | | peripheral nuclear | | | | | | palisading and | | | | | | retraction artifact.C: | | | | | | There are irregularly | | | | | | sized aggregates of | | | | | | basaloid epithelial | | | | | | cells,some of them with | | | | | | hyperchromatic nuclei | | | | | | and scant cytoplasm. | | | | | | In some areasthere is | | | | | | peripheral nuclear | | | | | | palisading and | | | | | | retraction | | | | | | artifact.DIAGNOSIS:A: | | | | | | BASAL CELL CARCINOMA, | | | | | | ULCERATED.B: BASAL | | | | | | CELL CARCINOMA.C: | | | | | | BASAL CELL | | | | | | CARCINOMA.CRW:[id number]/11/[id number] | | | | | | endering Diagnostician: | | | | | | Florencio Nagy Jr., | | | | | | AshPathologistCulleni | | | | | | mirna Signed 11/11/2008 | | | | + + + + + + + + | Specimen | + + | Other | + + + + + + + | Performing | Address | City/State/Zipcode | Phone Number | | Organization | | | | + + + + + | [facility] | [address] | [place] [address] | | | DERMATOPATHOLOGY | [place] | | | + + + + + documented in this encounter Visit Diagnoses Not on filedocumented in this encounter"
--- OUTSIDE RECORDS SUMMARY | ~2020-03-03 | XMS | Encounter Summary ---
Demographics + + + | Address | [address] | | | [place] [address] | + + + | Home Phone | | + + + | Preferred Language | Unknown | + + + | Marital Status | | + + + | Christianity Affiliation | Unknown | + + + | Race | White | + + + | Ethnic Group | Not or | + + + Author + + + | Author | [facility] | | | and [place] | + + + | Organization | [facility] | | | [...] [place], [place] | | | | | [address] | | + + + + + | Isabella "Tiki" | ECON | [address] | | | [place] | | [place], [place] | | | | | [address] | | + + + + + Care Team Providers + +------+ + | Care Guide Tour Name | Role | Phone | + [...] Basal cell | Carly M, | [address] | | | | | carcinoma of | MD [address] | [place], | | | | | skin of | [address] | [place] [address] | | | | | scalp and | [place], | Phone: | | | | | neck | [place] [address] | [phone] | | | | | Recurrent | Phone: | Fax: | | | | | basal cell | [phone] | [phone] | | | | | carcinoma | Fax: | | | | | | Procedures | [phone] | | | | | | CT Soft | | | | | | | Tissue Neck | | | | | | | w Contrast | | | +--------+--------+ + + + + Diagnostic/Screening (Routine) +--------+--------+ + + + + | Status | Reason | Specialty | Diagnoses / | Referred By | Referred To | | | | | Procedures | Contact | Contact | +--------+--------+ + + + + | Closed | | Radiology | Diagnoses | Riegert, | [address] | | | | | Recurrent | Carly M, | [place] | | | | | basal cell | MD [address] | [place], | | | | | carcinoma | [address] | [place] [address] | | | | | Procedures | [place], | Phone: | | | | | CT Treatment | [place] [address] | [phone] | | | | | Plan | Phone: | Fax: | | | | | Complex | [phone] | [phone] | | | | | | Fax: | | | | | | | [phone] | | +--------+--------+ + + + + Reason for Visit Evaluate & Treat (Routine) +--------+--------+ + + + + | Status | Reason | Specialty | Diagnoses / | Referred By | Referred To | | | | | Procedures | Contact | Contact | +--------+--------+ + + + + | Closed | | Radiation | Diagnoses | [facility] | | | | Oncology | Malignant | Radiation | Radiation | | | | | neoplasm of | Oncology | Oncology | | | | | skin | Clinic [address] | Clinic [address] | | | | | Procedures | [address] [place] | | | | | [address] | [place], | [place], | | | | | | [place] | [place] [address] | | | | | | [address] | Phone: | | | | | | Phone: | [phone] | | | | | | [phone] | Fax: | | | | | | Fax: | [phone] | | | | | | [phone] | | +--------+--------+ + + + + Encounter Details +--------+ + + + + | Date | Type | Department | Care Team | Description | +--------+ + + + + | 05/04/ | Hospital | [facility] | Carly Jaime | Recurrent basal cell | | 2019 | Encounter | MED CTR RADIATION | MD Paulette [address] | carcinoma (Primary | | | | ONCOLOGY CLINIC [address] | [place], [place] | Dx); Basal cell | | | | [place] | [address] | carcinoma of skin of | | | | [place] [address] | | scalp and neck | | | | [phone] | | | +--------+ + + + [...] + + + | Blood Pressure | 179/83 | 05/04/2019 9:04 AM | | | | | PDT | | + + + + + | Pulse | 67 | 05/04/2019 9:04 AM | | | | | PDT | | + + + + + | Temperature | 35.9 C (96.6 F) | 05/04/2019 9:04 AM | | | | | PDT | | + + + + + | Respiratory Rate | 18 | 05/04/2019 9:04 AM | | | | | PDT | | + + + + + | Oxygen Saturation | 97% | 05/04/2019 9:04 AM | | | | | PDT | | + + + + + | Inhaled Oxygen | - | - | | | Concentration | | | | + + + + + | Weight | 86 kg (189 lb 9.5 | 05/04/2019 9:04 AM | | | | oz) | PDT | | + + + + + | Height | - | - | | + + + + + | Body Mass Index | 27.45 | 12/27/2018 9:52 AM | | | | | PDT | | + + + + + documented in this encounter Discharge Instructions Patient Instructions Mansi Heath RN - 05/04/2019 9:50 AM PDTOur office will call you to schedule: CT SIM radiation planning scan appointment as well as diagnostic CT of Neck wi th IV contrast (to be done at the same time) documented in this encounter Medications at Time [...] encounter Progress Notes Carly Jaime MD - 05/04/2019 9:30 AM PDT Radiation Oncology Consultation Chief Complaint: Guilherme Merino is a 64 y.o. male seen today as a new patient at the request of Meron Montague,* for evaluation and consideration of radiotherapeutic treatment. The encounter diagnosis was Recurrent basal cell carcinoma. History of Present Illness: Patient has a long standing history of basal cell carcinoma involving his left neck. He has extensive sun exposure while working in the [employer] and was first diagnosed with a left neck basal cell carcinoma in 1997. 01/30/1998- biopsy done basal cell carcinoma, superficial type 05/01/2002- Biopsy done basal cell carcinoma, sclerosing type. Status post MOHS surgery @ [facility] 11/07/2008- Biopsy done basal cell carcinoma. Status post additional MOHS surgery @ [facility] 06/02/2018- Brain MRI following a witnessed seizure; no evidence of metastases. 07/12/2018- PET/CT scan; moderate uptake in the region of basal cell carcinoma left anterior neck, no evidence of metastatic disease. 07/19/18- Consult with Dr. Funk at [facility] in [facility]. 08/01/18- Consult with Dr. Singh 09/04/18-10/02/18- Radiation therapy here at [facility] 55 Gy in 20 fractions. Excellent response wi th resolution of ulcerated mass at anterior left low neck. 10/09/18-left carotid stenting w/neurointerventional radiology 04/05/19-Dominique Montague @ [facility] Dermatology Biopsies done- No recurrence in prior radiation field, however posterior neck biopsies positive for recurrent BCC> 04/17/19- FU with Dominique Montague and referral placed based on pathology Basal Cell Carcinoma left lateral and posterior neck. Review of systems: Constitutional: Reports slight fatigue. Denies high fevers, shaking chills, anorexia, nause a, vomiting, weight loss, or night sweats. Appetite without changes. Ear, Nose, Mouth, Throat: [place]SP[place]KS. Denies odynophagia, dysphagia, or tinnitus. Cardiovascular: Denies shortness of breath, dyspnea on exertion, chest pain, palpitations o r orthopnea. Respiratory: Denies cough, hemoptysis, or sputum production. Gastrointestinal: Denies abdominal pain, constipation, diarrhea, melena, or bright red bloo d per rectum. Genitourinary: Denies hematuria or dysuria. Musculoskeletal: Reports generalized joint pain continues. "old-age pain." Neurologic: Reports no peripheral vision post-stroke in 2018. Denies headache, or numbness/ tingling of the extremities. Endocrine: Denies peripheral edema or heat/cold intolerance. Hematologic: Denies spontaneous bruising or bleeding. Integumentary: Reports tenderness to touch, redness, slight irritation around previous radi ation to neck (primarily left side of neck). Scar where biopsy was on anterior neck as well. Denies rash. Pain: Denies pain today. Note: Here for consult for basal cell recurrence of left lateral and posterior neck referre d by Dominique Montague. My chart: Inactive Pain assessment: none reported today Questionnaires: Have you ever had radiation treatment: yes Comments: [facility], left anterior neck earlier this year. Do you have a pacemaker or ICD: no Are you claustrophobic? no Comments: Do you have a connective tissue disorder such as Lupus, Scleroderma, or other: no Do you have the ability to become : no If yes, is there potential that you are currently ? What type of contraceptive do you use? Current Outpatient Medications Medication Sig Dispense Refill aspirin 325 mg [...] (before breakfast ). No current facility-administered medications for this encounter. Allergies No active allergies Intolerance No active intolerances/contraindications Past Medical History: Diagnosis Date Acute ischemic left ICA stroke (HCC) Basal cell carcinoma of skin neck Cancer of skin of neck Carotid stenosis, left CVA (cerebral vascular accident) (HCC) Dyslipidemia Hearing loss Hematuria Hypertension Kidney stones Seasonal allergies TIA (transient ischemic attack) Vascular dementia (HCC) Past Surgical History: Procedure Laterality Date Left ICA stent 10/09/2018 MOHS SURGERY 2001 & 2009 @ [facility] SKIN CANCER EXCISION TONSILLECTOMY VASECTOMY Family History Problem Relation Age of Onset Cancer Father Social History Socioeconomic History Marital status: Spouse name: Not on file Number of children: Not on file Years of education: Not on file Highest education level: Not on file Social Needs Financial resource strain: Not on file Food insecurity - worry: Not on file Food insecurity - inability: Not on file Transportation needs - medical: Not on file Transportation needs - non-medical: Not on file Occupational History Not on file Tobacco Use Smoking status: Current Every Day Smoker Packs/day: 0.50 Start date: 08/01/1997 Smokeless tobacco: Former User Tobacco comment: Has smoked on and off since he started smoking at age 11. Quit for abo ut 10 years and restared around 1997. Substance and Sexual Activity Alcohol use: No Drug use: Yes Frequency: 7.0 times per week Types: Marijuana, Narcotics Comment: "gummies to help with sleeping" Sexual activity: Not on file Other Topics Concern Not on file Social History Narrative Not on file Physical Exam: Vitals: 05/04/19 0904 BP: 179/83 Pulse: 67 Resp: 18 Temp: 35.9 C (96.6 F) Wt Readings from Last 3 Encounters: 05/04/19 86 kg (189 lb 9.5 oz) 01/08/19 84 kg (185 lb 3 oz) 12/27/18 82.3 kg (181 lb 7 oz) General: Healthy appearing robust man in no acute medical distress. KPS: 70 HEENT: Pupils equal, round and reactive to light. No conjunctival icterus or injection. EOM I. Oral, moist mucus membranes. Lymphatic: Left supraclavicular fossa soft but full No cervical, supraclavicular or axilla ry lymphadenopathy. Cardiovascular: Regular rate and rhythm, no murmur. Pulmonary: Breath sounds heard throughout, no adventitial sounds or increased work of breat stefania at rest. Extremities: Upper and lower extremities warm and well perfused with no upper or lower extr emity edema. Neurologic: Alert, oriented and appropriated in conversation. Limited short responses. CN II-IX grossly intact. Moves all 4 extremities normally with normal gait. Psychiatric: Appropriate, baseline. Derm: Extensive surgical and radiation changes on left neck with moderate fibrosis. No m ass lesions. At biopsy sites there is flaky erythematous plaques (lat and post neck ) Slow healing scab at anterior neck biopsy site, in prior radiation field. Labs: No recent results. Pathology: 04/05/19 skin biopsy -Left anterior neck benign -Left lateral neck: Foci of early, superficial type basal cell carcinoma. Left posterior neck: Basal carcinoma, superficial to nodular ulcerative type. Imaging: No recent relevant results. Assessment: Recurrent basal cell carcinoma 09/04/2018 - 10/02/2018 Radiation Therapy Total dose 55 Gy delivered in 20 fractions using an en face 6 MeV electron beam deliverin g 2.75 Gy per day. Dose prescribed to the 95% isodose line Mr. Merino has unfortunately returned with regional recurrence of basal cell carcinoma. He has been battling this disease for the last 20 years. He has undergone local therapies wit h topical treatments, surgical resection and prior radiation. Biopsy demonstrates that he h as not recurred within the radiation treatment field. However areas of disease are located posteriorly to his prior treatment area. He did experience a very good response to treatmen t in the previous radiation field with resolution of ulcerative mass. 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 Dr. Montague has discussed options with him including additional surgery and topical therapies . He has declined additional surgery. Dr. Montague referred for consideration of additional r adiation. In the past he has also undergone consultation by Dr. Funk to to consider systemic treatment, Dr. Funk recommends reservation of this option if needed for unco ntrolled disease after all possible local therapies, or disseminated disease. On exam today I do palpate left supra clavicular fullness, which will be need to be evaluat ed on a diagnostic CT of the neck. Clinically the left neck disease appears to be superfici al, no nodules or ulceration have developed. I reviewed with Guilherme and his the proced ures involved in radiation treatment planning and delivery. We also discussed the potential short and long-term side effects of radiation. He is very familiar with radiation, through his treatment course earlier this year. We did discuss that reirradiation, to an adjacent area carries increased risk for dose overlap and radiation toxicity which may include tissue fibrosis, necrosis and pain. Every effort will be taken and treatment designed to limit hi s risk for dose overlap and associated toxicities. Guilherme verbalized understanding of the tr eatment recommendation and wishes to proceed to simulation. Plan/patient instructions: Our office will call you to schedule: CT SIM radiation planning scan appointment as well as diagnostic CT of Neck with IV contrast (to be done at the same time) Anticipated radiation plan will be for 55 Gy in 20 fractions directed to the lateral rabies inspector ior neck, abutting previous radiation treatment field. The information found at www.rtanswers.org was advised for further information specific to radiation therapy. Guilherme was encouraged to call our clinic with any further questions or c oncerns. Thank you for allowing me to participate in the care of Guilherme. If you should have any ques tions regarding this evaluation, please do not hesitate to contact me. Carly Jaime M.D. Radiation Oncologist Department of Radiation Oncology [facility] Office: [phone] signed by Carly Jaime MD at 06/16/2019 1:52 PM [address]documented in this encounter Plan of Treatment +--------+ + + + + | Date | Type | Specialty | Care Team | Description | +--------+ + + + + | 03/26/ | Appointment | Radiation Oncology | Papito Alvarez MD | | | 2019 | | | [address] | | | | | | [place] | | | | | | [address] | | | | | | | | +--------+ + + + + documented as of this encounter Results CT Treatment Plan Complex (05/09/2019 1:18 PM PST) + + | Specimen | [...] | | | + +---------+ + + CT Soft Tissue Neck w Contrast (05/09/2019 [...] The | | | parapharyngeal, retropharyngeal, and community affairs director spaces are normal. | | | The [...] | skin of neck | + + documented in this encounter
--- OUTSIDE RECORDS SUMMARY | ~2020-03-03 | XMS | Encounter Summary ---
Demographics + + + | Address | [address] | | | [place] [address] | + + + | Home Phone | | + + + | Preferred Language | Unknown | + + + | Marital Status | | + + + | Episcopalian Affiliation | Unknown | + + + | Race | White | + + + | Ethnic Group | Not or | + + + Author + + + | Author | [facility] | | | and [place] | + + + | Organization | [facility] | | | and [place] | + + + | Address | Unknown | + + + | Phone | Unavailable | + + + Support + + + + + | Name | Relationship | Address | Phone | + + + + + | Alanna Merino | ECON | [address] | | | | | [place], [place] | | | | | [address] | | + + + + + | Isabella "Tiki" | ECON | [address] | | | [place] | | [place], [place] | | | | | [address] | | + + + + + Care Team Providers + +------+ + | Care Drawing Supervisor Name | Role | Phone | [...] cell | Ashu C DO | [address] | | | | | carcinoma | [address] | [place], | | | | | (BCC) of | [address] | [place] [address] | | | | | skin of neck | [place], | Phone: | | | | | Procedures | [place] [address] | [phone] | | | | | CT | Phone: | Fax: | | | | | Treatment | [phone] | [phone] | | | | | Plan Complex | Fax: | | | | | | CT TX PLAN | [phone] | | +--------+--------+ + + + + [...] | | Consult/Recu | [address] | [place] [address] | | | | | rrent Basel | [address] | Phone: | | | | | Cell/Quacken | [place], | [phone] | | | | | soler | [place] [address] | Fax: | | | | | Procedures | Phone: | [phone] | | | | | [place] OFFICE | [phone] | | | | | | OUTPATIENT | Fax: | | | | | | NEW 60 | [phone] | | | | | | MINUTES NEW | | | | | | | PATIENT | | | +--------+--------+ + + + + Encounter Details +--------+ + + + + | Date | Type | Department | Care Team | Description | +--------+ + + + + | 08/01/ | Hospital | [facility] | Ashu Singh DO | Basal cell carcinoma | | 2019 | Encounter | MED CTR RADIATION | [address] | (BCC) of skin of | | | | ONCOLOGY CLINIC [address] | [place] | neck (Primary Dx) | | | | [address] [place] | [address] | | | | | [place] [address] | | | | | | [phone] | | | +--------+ + + + [...] He is a pleasant 63-year-old gentleman from [place], [place] who has a long-sta nding history of basal cell carcinoma involving his left neck. He has extensive sun exposur e while working in the [employer] and was first diagnosed with a left neck basal cell carci noma in 1997 described as superficial. 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 He returned again i n 2008 to [...] have a pacemaker or ICD: no Type: Payroll Administrator: Is it MRI compatible: Are you claustrophobic? [...] review including his last s urgeries at [facility] found in care everywhere. He states that he does not want any further surg maisha on his neck as his last surgery took over 8 hours to complete and due to the distance re quired to return to [facility]. I reviewed with them the current NCCN guidelines regarding the ma nagement of basal cell carcinoma including the option of further surgical evaluation with Dr Cheri Herrera at the [facility] who is a fellowship trained Moh's [...] ZACR Radiation Oncologist Department of Radiation Oncology [facility] This note was transcribed using Visys speech recognition software. As a result, there [...] 2019 | | | [address] [facility] | | | | | | [place] | | | | | | [phone] | | | | | | | [...]
--- OUTSIDE RECORDS SUMMARY | ~2020-03-03 | XMS | Encounter Summary ---
Demographics + + + | Address | [address] | | | [place] [address] | + + + | Home Phone [...] + + + | Author | [facility] | | | and [place] | + + + | Organization | [facility] | | | [...] [place], [place] | | | | | [address] | | + + + + + | Isabella "Tiki" | ECON | [address] | | | [place] | | [place], [place] | | | | | [address] | | + + + + + Care Team Providers + +------+ + | Care Batch Roller Operator Name | Role | Phone | + +------+ + | No, Physician | PCP | Unavailable | + +------+ + Reason for Visit +--------+--------+ + | Reason | Onset | Comments | | | Date | | +--------+--------+ + | Other | 12/04/ | CT Scan | | | 2019 | | +--------+--------+ + Encounter Details +--------+ + + + + | Date | Type | Department | Care Team | Description | +--------+ + + + + | 12/04/ | Telephone | [facility] | Radhames Rdz | Other (CT Scan) | | 2019 | | [address] | [address] | | | | | [place] | [place] | | | | | [address] | [place] [address] | | | | | [phone] | [phone] | | | | | | | [...] Miscellaneous Notes Telephone Encounter - Winifred Marquez Map Maker - 12/20/2018 2:55 PM PDTFaxed request for results. Electronically signed by Ken Francisco at 2018 2:55 PM PDTTelephone Encounter - Sonia Marx RN - 12/07/2018 4:[address] An dexter's called to say he needs labs prior to CT. Orders entered and faxed to [facility], confirmation received. elephone Encounter - Winifred Marquez Map Maker - 12/07/2018 3:29 PM PDT Notified patient and his CT scan had been authorized. Number for [facility] was provided to schedule CT appt. Patient and were notified to call us to reschedule if CT could not be scheduled prior to Tuesday's appt. elephone Encounter - Winifred Marquez Med ical Outside Sales Manager - 12/04/2018 2:30 PM PDTUnable to leave message. CT scan has been authorized and is ready to be scheduled. Order faxed to [facility] in [place]. Electronic ally signed by Ken Francisco at 12/04/2018 2:32 PM PDTdocumented in this encounter Plan of Treatment +--------+ + + + + | Date | Type | Specialty | Care Team | Description | +--------+ + + + + | 03/26/ | Appointment | Radiation Oncology | Papito Alvarez MD | | | 2019 | | | [address] [facility] | | | | | | [place] | | | | | | [address] | | | | | | | | +--------+ + + + + + +------+--------+ + + | Name | Type | Priori | Associated Diagnoses | Order Schedule | | | | ty | | | + +------+--------+ + + | BUN | Lab | Routin | Hematuria, | Expected: 12/07/2018 | | | | e | unspecified type | (Approximate), | | | | | | Expires: 12/07/2019 | + +------+--------+ + + | Creatinine | Lab | Routin | Hematuria, | Expected: 12/07/2018 | | | | e | unspecified type | (Approximate), | | | | | | Expires: 12/07/2019 | + +------+--------+ + + documented as of this encounter Visit Diagnoses + + | Diagnosis | + + | Hematuria, unspecified type - Primary | + + documented in this encounter
--- OUTSIDE RECORDS SUMMARY | ~2020-03-03 | XMS | Encounter Summary ---
Demographics + + + | Address | [address] | | | [place] [address] | + + + | Home Phone [...] + + + | Author | [facility] | | | and [place] | + + + | Organization | [facility] | | [...] [place], [place] | | | | | [address] | | + + + + + | Isabella "Tiki" | ECON | [address] | | | [place] | | [place], [place] | | | | | [address] | | + + + + + Care Team Providers + +------+ + | Care Tape Keller Operator Name | Role | Phone | [...] + + | 11/27/ | Telephone | [facility] | Radhames Rdz | Appointment | | 2019 | | [address] | [address] | | | | | [place] | [place] | | | | | [address] | [place] [address] | | | | | [phone] | [phone] | | | | | | | [...] 5:06 PM PDT----- Message from Winifred Mraquez, Security Controls Assessor sent at 020 1:31 PM PDT ----- Regarding: Needs one year follow up appt. Patient needs 1 year follow up appt ~ 12/28/19. 1 YEAR FOLLOW UP (Hematuria, hx of urolithiasis) PSA, BMP PRIOR ----- Message ----- From: Evon Burden Security Controls Assessor Sent: 11/27/2019 To: Winifred Marquez Security Controls Assessor Subject: needs one year follow up appt. [...] [place] | | | | | | [id number] | | | | | | | | +--------+ + + + + documented as of this encounter Visit Diagnoses Not on filedocumented in this encounter
--- OUTSIDE RECORDS SUMMARY | ~2020-03-03 | XMS | Encounter Summary ---
Demographics + + + | Address | [address] | | | [place] [address] | + + + | Home Phone | | + + + | Preferred Language | Unknown | + + + | Marital Status | | + + + | Religion Affiliation | Unknown | + + + | Race | White | + + + | Ethnic Group | Not or | + + + Author + + + | Author | [facility] | | | and [place] | + + + | Organization | [facility] | | | [...] [place], [place] | | | | | [address] | | + + + + + | Isabella "Tiki" | ECON | [address] | | | [place] | | [place], [place] | | | | | [address] | | + + + + + Care Team Providers + +------+ + | Care Printing Machinist Name | Role | Phone | + +------+ + | Alen Bolanos MD | PCP | | + +------+ + Encounter Details +--------+ + + + + | Date | Type | Department | Care Team | Description | +--------+ + + + + | 08/01/ | Hospital | [facility] | Ashu Singh DO | | | 2019 | Encounter | MED CTR RADIATION | [address] | | | | | ONCOLOGY [address] | [place] | | | | | [place], | [address] | | | | | [place] [address] | | | | | | [phone] | | | +--------+ + + + [...] [place] | | | | | | [address] | | | | | | | | +--------+ + + + + documented as of this encounter Visit Diagnoses Not on filedocumented in this encounter
--- OUTSIDE RECORDS SUMMARY | ~2020-03-03 | XMS | Encounter Summary ---
Demographics + + + | Address | [address] | | | [place] [address] | + + + | Home Phone | | + + + | Preferred Language | Unknown | + + + | Marital Status | | + + + | Congregational Affiliation | NRP | + + + | Race | White | + + + | Ethnic Group | Not or | + + + Author + + + | Author | [facility] | + + + | Organization | [facility] | + + + [...] [place] | | | | | [address] | | + + + + + Care Team Providers + +------+ + | Care Brand Communications Manager Name | Role | Phone | [...] as of this encounter Progress Notes Interface, Master Automotive Glass Technician In - 02/01/2006 1:02 AM PDTSURGEON: Camron Coon M.D. STOCKROOM WORKER: Renetta Carlos M.D. RESIDENT: Rayray Win M.D. [...] result. Renata A 1: 02 AM PDTInterface, Master Automotive Glass Technician In - 02/01/2006 1:02 AM PDTSURGEON: Camron Coon M.D. STOCKROOM WORKER: Renetta Carlos M.D. RESIDENT: Rayray Win M.D. [...]
--- OUTSIDE RECORDS SUMMARY | ~2020-03-03 | XMS | Encounter Summary ---
Demographics + + + | Address | [address] | | | [place] [address] | + + + | Home Phone [...] [place], [place] | | | | | [address] | | + + + + + | Isabella "Tiki" | ECON | [address] | | | [place] | | [place], [place] | | | | | [address] | | + + + + + Care Team Providers + +------+ + | Care Family Lawyer Name | Role | Phone | + +------+ + | No, Physician | PCP | Unavailable | + +------+ + Reason for Visit + +--------+ + | Reason | Onset | Comments | | | Date | | + +--------+ + | Family/caregiver | 02/21/ | | | Concerns | 2018 | | + +--------+ + Encounter Details +--------+ + + + + | Date | Type | Department | Care Team | Description | +--------+ + + + + | 02/21/ | Telephone | [facility] | Ashu Singh DO | Family/caregiver | | 2018 | | MED CTR MEDICAL | [address] [facility] | Concerns | | | | ONCOLOGY CLINIC [address] | [place] | | | | | [address] | [address] | | | | | [place] [address] | | | | | | [phone] | | | +--------+ + + + [...] Telephone Encounter - Emmy Vanessa RN - 02/21/2019 1:27 PM Jose Angel calls back to notify that patient has been scheduled with Dr. Montague on 04/05 @ 11:20. elephone Encounter - Emmy Vanessa RN - 02/21/2019 10:25 AM Jose Angel states that she called dermatology this morning, and t hey said they can not find a referral and would not schedule patient. I let her know I would give them a call. Spoke with Greta on the phone at [facility]. She states that they did fi nd a referral from September but would need a newer one, there was a referral placed on 01/08/[address] Singh, this referral was faxed with confirmation today to their office. Advised Greta tang at patient still does indeed need to be seen and scheduled as soon as possible, and that Jamey jay go ahead and print off the referral and fax it to the office. Called patient's back to let her know that this had been done, no Answer left informa tion in with call back number for any further questions or issues getting appointment brayden peralta. elephone Cody Viveros - 02/21/2019 9:17 AM PDTDelanee called, she cannot get pt in to [facility], they simply will not give her one, she is asking for help getting him in. They ar e flexible, but they live in [place] so prefer nothing early in morning. Please call if paulino arnold can help. [phone] signed by Cody Sharif at 02/21/2019 9:20 AM PDTdocumented i n this encounter Plan of Treatment +--------+ + + + + | Date | Type | Specialty | Care Team | Description | +--------+ + + + + | 03/26/ | Appointment | Radiation Oncology | Papito Alvarez MD | | | 2019 | | | [address] | | | | | | [place] | | | | | | [address] | | | | | | | | +--------+ + + + + documented as of this encounter Visit Diagnoses Not on filedocumented in this encounter
--- OUTSIDE RECORDS SUMMARY | ~2020-03-03 | XMS | Encounter Summary ---
Demographics + + + | Address | [address] | | | [place] [address] | + + + | Home Phone | | + + + | Preferred Language | Unknown | + + + | Marital Status | | + + + | Holiness Affiliation | Unknown | + + + | Race | White | + + + | Ethnic Group | Not or | + + + Author + + + | Author | [facility] | | | and [place] | + + + | Organization | [facility] | | | [...] [place], [place] | | | | | [address] | | + + + + + | Isabella "Tiki" | ECON | [address] | | | [place] | | [place], [place] | | | | | [address] | | + + + + + Care Team Providers + +------+ + | Care Clother In Name | Role | Phone | + [...] | | ONCOLOGY CLINIC [address] | [place], [place] | | | | | [address] [place] | [address] | | | | | [place] [address] | | | | | | [phone] | | | +--------+ + + + [...] [place] | | | | | | [address] | | | | | | | | +--------+ + + + + documented as of this encounter Visit Diagnoses Not on filedocumented in this encounter
--- OUTSIDE RECORDS SUMMARY | ~2020-03-03 | XMS | Encounter Summary ---
Demographics + + + | Address | [address] | | | [place] [address] | + + + | Home Phone | | + + + | Preferred Language | Unknown | + + + | Marital Status | | + + + | Church Affiliation | Unknown | + + + [...] [place], [place] | | | | | [address] | | + + + + + | Isabella "Tiki" | ECON | [address] | | | [place] | | [place], [place] | | | | | [address] | | + + + + + Care Team Providers + +------+ + | Care Laborer Brush Clearing Name | Role | Phone | + [...] | MED CTR RADIATION | [address] [facility] | | | | | ONCOLOGY CLINIC [address] | [place] | | | | | [address] | [address] | | | | | [place] [address] | | | | | | [phone] | | | +--------+--------+ + + + [...] [place] | | | | | | [id number] | | | | | | | [...]
--- OUTSIDE RECORDS SUMMARY | ~2020-03-03 | XMS | Encounter Summary ---
Demographics + + + | Address | [address] | | | [place] [address] | + + + | Home Phone [...] Author + + + | Author | [facility] | | | and [place] | + + + | Organization | [facility] | | [...] [place], [place] | | | | | [address] | | + + + + + | Isabella "Tiki" | ECON | [address] | | | [place] | | [place], [place] | | | | | [address] | | + + + + + Care Team Providers + +------+ + | Care Company Laundry Worker Name | Role | Phone | [...] | +--------+ + + + + | 06/07/ | Hospital | [facility] | Carly Jaime | Basal cell carcinoma | | 2019 | Encounter | MED CTR RADIATION | MD Paulette [address] | (BCC) of skin of | | | | ONCOLOGY CLINIC [address] | [place], [place] | neck (Primary Dx) | | | | [address] [facility] | [address] | | | | | [place] [address] | | | | | | [phone] | | | +--------+ + + + [...] + + + | Blood Pressure | 184/85 | 06/07/2019 10:26 AM | | | | | PST | | + + + + + | Pulse | 72 | 06/07/2019 10:26 AM | | | | | PST | | + + + + + | Temperature | 36.9 C (98.4 F) | 06/07/2019 10:26 AM | | | | | PST | | + + + + + | Respiratory Rate | 16 | 06/07/2019 10:26 AM | | | | | PST | | + + + + + | Oxygen Saturation | 98% | 06/07/2019 10:26 AM | | | | | PST | | + + + + + | Inhaled Oxygen | - | - | | | Concentration | | | | + + + + + | Weight | 85.6 kg (188 lb 11.4 | 06/07/2019 10:26 AM | | | | oz) | [...] encounter Progress Notes Carly Jaime MD - 06/07/2019 11:20 AM PST Radiation Oncology Weekly On Treatment Note Diagnosis: ICD-10-CM ICD-9-CM 1. Basal cell carcinoma (BCC) of skin of neck C44.41 173.41 Reason for visit: On treatment evaluation Radiation technical factors: Dose Delivered Dose Planned Fractions Delivered 4125 cGy 5500 cGy Images were reviewed this [...] medications on file prior to encounter. Vitals: 06/07/19 1026 BP: 184/85 Pulse: 72 Resp: 16 Temp: 36.9 C (98.4 F) SpO2: 98% Weight: 85.6 kg (188 lb 11.4 oz) Physical Exam Constitutional: He appears well-developed and well-nourished. Neurological: He is alert. Skin: No rash noted. There is erythema (Deep erythema , punctate moist and dry desquamation . ). Psychiatric: He has a normal mood and affect. Physician Assessment: 06/07/2019: Guilherme is near completion of treatment. He continues to have significant cutane ous pain. Expected Grade 2 radiation dermatitis. Using emollient cream and emla for pain. Disposition: Continue radiation treatment as planned. Skin care as above. Carly Jaime MD Radiation Oncologist documented in [...] [place] | | | | | | [address] | | | | | | | | +--------+ + + + + documented as of this encounter Visit Diagnoses + + | Diagnosis | + + | Basal cell carcinoma (BCC) of skin of neck - Primary | + + documented in this encounter
--- OUTSIDE RECORDS SUMMARY | ~2020-03-03 | XMS | Encounter Summary ---
Demographics + + + | Address | [address] | | | [place] [address] | + + + | Home Phone [...] [place], [place] | | | | | [address] | | + + + + + | Isabella "Tiki" | ECON | [address] | | | [place] | | [place], [place] | | | | | [address] | | + + + + + Care Team Providers + +------+ + | Care Solar Pv Installer Name | Role | Phone | [...] | | ONCOLOGY CLINIC [address] | [place], [place] | | | | | [address] [place] | [address] | | | | | [place] [address] | | | | | | [phone] | | | +--------+ + + + [...] Progress Notes Ashu Singh DO - 10/02/2018 5:03 PM PDT Radiation Treatment Summary Diagnosis ICD10: C44.41 - [...] conclusion of therapy was 6/10 managed by Jennings 10/325 one to 2 tablets every 6 hours as needed. At the conclusion of treatment, the tumor had flattened out with healthy appearing tissue. Disposition: 1. Follow-up in our clinic: 3 months with referral for dermatologic follow-up and future ma nagement Pain management for treatment related toxicity: Continuation [...] DO Radiation Oncologist Department of Radiation Oncology [facility] This note was transcribed using [employer] speech recognition software. As a result, there [...] Ashu Singh DO as Physician (Radiation Oncology) documented in this enco unter Plan of Treatment +--------+ + + + + | Date | Type | Specialty | Care Team | Description | +--------+ + + + + | 03/26/ | Appointment | Radiation Oncology | Papito Alvarez MD | | | 2019 | | | [address] | | | | | | [place] | | | | | | [address] | | | | | | | | +--------+ + + + + documented as of this encounter Visit Diagnoses Not on filedocumented in this encounter
--- OUTSIDE RECORDS SUMMARY | ~2020-03-03 | XMS | Encounter Summary ---
Demographics + + + | Address | [address] | | | [place] [address] | + + + | Home Phone [...] [place], [place] | | | | | [address] | | + + + + + | Isabella "Tiki" | ECON | [address] | | | [place] | | [place], [place] | | | | | [address] | | + + + + + Care Team Providers + +------+ + | Care Director Of Sales Marketing Name | Role | Phone | + +------+ + | Alen Bolanos MD | PCP | | + +------+ + Reason for Visit +--------+--------+ + | Reason | Onset | Comments | | | Date | | +--------+--------+ + | Other | 10/16/ | | | | 2019 | | +--------+--------+ + Encounter Details +--------+ + + + + | Date | Type | Department | Care Team | Description | +--------+ + + + + | 10/16/ | Telephone | [facility] | Ashu Singh, DO | Other | | 2018 | | MED CTR MEDICAL | [address] [facility] | | | | | ONCOLOGY CLINIC [address] | [place] | | | | | [address] | [id number] | | | | | [place] [address] | | | | | | [phone] | | | +--------+ + + + [...] Telephone Encounter - Emmy Vanessa RN - 10/16/2018 2:36 PM PDTSpoke with Alanna márquez let her know that we can see Guilherme for a skin check tomorrow at 10:00, she states that th ey will be here, no further questions.Electronically signed by Emmy Vanessa RN at 10/02 2:37 PM PDTTelephone Encounter - Emmy Vanessa RN - 10/16/2018 10:42 AM Courtney krishnamurthy is wondering if Dr. Singh would be willing to take a look to at site, to ensure that it is looking okay, is concerned about infection. States that site is no longer actively bleedi ng, but it is still oozing a "chicken gravy color" states that it is thicker in the morning and thinner as the day goes on. Denies that patient is having any fever. Electronically sign ed by Emmy Vanessa RN at 10/16/2018 10:50 AM PDTTelephone Encounter - Cody Sharif - 10/16/2018 9:15 AM PDTDelenee called, pts neck wound is still bleeding. [facility] adoredawn farnaz can't get him in until the . KRISIT was really concerned and so is she. The wound s pecialist compared it to a burn patient. He is on a blood thinner and of course that's not helping. She is very concerned. [phone] asks for call documented in this encou nter Plan of [...] [place] | | | | | | [address] | | | | | | | | +--------+ + + + + documented as of this encounter Visit Diagnoses Not on filedocumented in this encounter
--- OUTSIDE RECORDS SUMMARY | ~2020-03-03 | XMS | Encounter Summary ---
Demographics + + + | Address | [address] | | | [place] [address] | + + + | Home Phone [...] [place], [place] | | | | | [address] | | + + + + + | Isabella "Tiki" | ECON | [address] | | | [place] | | [place], [place] | | | | | [address] | | + + + + + Care Team Providers + +------+ + | Care Double End Tenon Operator Name | Role | Phone | + +------+ + | Alen Bolanos MD | PCP | | + +------+ + Encounter Details +--------+ + + + + | Date | Type | Department | Care Team | Description | +--------+ + + + + | 10/17/ | Hospital | [facility] | Ashu Singh DO | Malignant neoplasm | | 2019 | Encounter | [facility] | [address] | of skin (Primary Dx) | | | | ONCOLOGY CLINIC [address] | [place] | | | | | [address] [place] | [address] | | | | | [place] [address] | | | | | | [phone] | | | +--------+ + + + [...] + + + | Blood Pressure | 120/67 | 10/17/2018 9:49 AM | | | | | PDT | | + + + + + | Pulse | 67 | 10/17/2018 9:49 AM | | | | | PDT | | + + + + + | Temperature | 37.1 C (98.8 F) | 10/17/2018 9:49 AM | | | | | PDT | | + + + + + | Respiratory Rate | 16 | 10/17/2018 9:49 AM | | | | | PDT | | + + + + + | Oxygen Saturation | 96% | 10/17/2018 9:49 AM | | | | | PDT | | + + + + + | Inhaled Oxygen | - | - | | | Concentration | | | | + + + + + | Weight | 81.9 kg (180 lb 8.9 | 10/17/2018 9:49 AM | | | | oz) | PDT | | + + + + + | Height | - | - | | + + + + + | Body Mass Index | 26.14 | 08/01/2018 1:01 PM | | | [...] encounter Progress Notes Danielle Robb RN - 10/17/2018 10:32 AM PDTPatient here for skin check today. state s they have had problems with wound oozing blood since he is on blood thinners. Today would is not draining. They are using a Vaseline dressing to keep dressing moist. This has prev ented any bleeding. Dr. Singh also evaluated wound today and feels like it is healing well w ith no signs or symptoms of infection. Reassured patient and his that healing will josh e time and to continue current wound regimen. Electronically signed by BEATRIZ Traylor t 10/17/2018 10:36 AM Danielle Moeller RN - 10/17/2018 10:18 AM PDT documented in this en counter Plan of [...] [place] | | | | | | [address] | | | | | | | | +--------+ + + + + documented as of this encounter Visit Diagnoses + + | Diagnosis | + + | Malignant neoplasm of skin - Primary Unspecified malignant neoplasm of skin, site | | unspecified | + + documented in this encounter
--- OUTSIDE RECORDS SUMMARY | ~2020-03-03 | XMS | Encounter Summary ---
Demographics + + + | Address | [address] | | | [place] [address] | + + + | Home Phone [...] [place], [place] | | | | | [address] | | + + + + + | Isabella "Tiki" | ECON | [address] | | | [place] | | [place], [place] | | | | | [address] | | + + + + + Care Team Providers + +------+ + | Care Chart Clerk Name | Role | Phone | [...] | | | | Recurrent | [place] [address] | [place], [place] | | | | | basal cell | Phone: | [address] | | | | | carcinoma | [phone] | Phone: | | | | | | Fax: | [phone] | | | | | | [phone] | Fax: | | | | | | | [phone] | +--------+ + + + + + Reason for Visit + + + | Reason | Comments | + + + | Under Treatment | | + + + Encounter Details +--------+ + + + + | Date | Type | Department | Care Team | Description | +--------+ + + + + | 09/28/ | Hospital | [facility] | Ashu Singh DO | Basal cell carcinoma | | 2019 | Encounter | [facility] | [address] | (BCC) of skin of | | | | ONCOLOGY CLINIC [address] | [place] | neck (Primary Dx); | | | | [address] [place] | [address] | Recurrent basal cell | | | | [place] [address] | | carcinoma | | | | [phone] | | | +--------+ + + + [...] 6 Pain Quality: Stable Current pain regimen: Catlin 10/325 1 tab q 6hours Wt Readings [...] this well with no signific ant pruritus. Catlin 10 mg/325mg has been titrated to 1 [...] [place] | | | | | | [address] | | | | | | | [...]
--- OUTSIDE RECORDS SUMMARY | ~2020-03-03 | XMS | Encounter Summary ---
Demographics + + + | Address | [address] | | | [place] [address] | + + + | Home Phone [...] [place], [place] | | | | | [address] | | + + + + + | Isabella "Tiki" | ECON | [address] | | | [place] | | [place], [place] | | | | | [address] | | + + + + + Care Team Providers + +------+ + | Care Didactic Program In Dietetics Director Name | Role | Phone | [...] + + | 05/08/ | Telephone | [facility] | Danielle Robb, | IDT Note | | 2018 | | [facility] | RN | | | | | ONCOLOGY CLINIC [address] | | | | | | [address] | | | | | | [place] [address] | | | | | | [phone] | | | +--------+ + + + [...] Robb RN - 05/08/2019 10:[address] [facility] Interdisciplinary Team Navigational Checklist ? Top Priority Discipline EPIC Order Entered Consult Scheduled Consult Complete Comments: x *Medical Oncology x *Radiation Oncology Dr. Yein Hitchcock 05/09/2019 x *Patient Navigation x *Nurse Navigator *Social Service Survivorship Nurse Breast Health Genetics Surgical Input *Nursing assessment *Pharmacy assessment Nutrition Rehab: PT OT Speech & Language Palliative Care Clinical Trials Involvement Supervisor Fish Processing Visit Financial Assistance Interdisciplinary Consults Completed Date: [...] [place] | | | | | | [address] | | | | | | | | +--------+ + + + + documented as of this encounter Visit Diagnoses Not on filedocumented in this encounter
--- OUTSIDE RECORDS SUMMARY | ~2020-03-03 | XMS | Encounter Summary ---
Demographics + + + | Address | [address] | | | [place] [address] | + + + | Home Phone | | + + + | Preferred Language | Unknown | + + + | Marital Status | | + + + | Sabianist Affiliation | Unknown | + + + | Race | White | + + + | Ethnic Group | Not or | + + + Author + + + | Author | [facility] | | | and [place] | + + + | Organization | [facility] | | | [...] [place], [place] | | | | | [address] | | + + + + + | Isabella "Tiki" | ECON | [address] | | | [place] | | [place], [place] | | | | | [address] | | + + + + + Care Team Providers + +------+ + | Care Supervisor Final Name | Role | Phone | + +------+ + | Alen Bolanos MD | PCP | | + +------+ + Encounter Details +--------+ + + + + | Date | Type | Department | Care Team | Description | +--------+ + + + + | 10/17/ | Hospital | [facility] | Ashu Singh DO | Malignant neoplasm | | 2019 | Encounter | [facility] | [address] | of skin (Primary Dx) | | | | ONCOLOGY CLINIC [address] | [place] | | | | | [place] | [address] | | | | | [place] [address] | | | | | | [phone] | | | +--------+ + + + [...] [place] | | | | | | [address] | | | | | | | | +--------+ + + + + documented as of this encounter Visit Diagnoses + + | Diagnosis | + + | Malignant neoplasm of skin - Primary Unspecified malignant neoplasm of skin, site | | unspecified | + + documented in this encounter
--- OUTSIDE RECORDS SUMMARY | ~2020-03-03 | XMS | Encounter Summary ---
Demographics + + + | Address | [address] | | | [place] [address] | + + + | Home Phone | | + + + | Preferred Language | Unknown | + + + | Marital Status | | + + + | Evangelical Affiliation | Unknown | + + + | Race | White | + + + | Ethnic Group | Not or | + + + Author + + + | Author | [facility] | | | and [place] | + + + | Organization | [facility] | | [...] [place], [place] | | | | | [address] | | + + + + + | Isabella "Tiki" | ECON | [address] | | | [place] | | [place], [place] | | | | | [address] | | + + + + + Care Team Providers + +------+ + | Care Fingerprint Expert Name | Role | Phone | + [...] Basal cell | Carly M, | [address] [place] | | | | | carcinoma of | MD [address] | [place], | | | | | skin of | [address] | [place] [address] | | | | | scalp and | [place], | Phone: | | | | | neck | [place] [address] | [phone] | | | | | Recurrent | Phone: | Fax: | | | | | basal cell | [phone] | [phone] | | | | | carcinoma | Fax: | | | | | | Procedures | [phone] | | | | | | CT [...] | Recurrent | Carly M, | [address] [place] | | | | | basal cell | MD [address] | [place], | | | | | carcinoma | [address] | [place] [address] | | | | | Procedures | [place], | Phone: | | | | | CT Treatment | [place] [address] | [phone] | | | | | Plan | Phone: | Fax: | | | | | Complex | [phone] | [phone] | | | | | | Fax: | | | | | | | [phone] | | +--------+--------+ + + + + [...] | | | | Procedures | [address] | [place] | | | | | [address] | [place], | [place], | | | | | | [place] | [place] [address] | | | | | | [address] | Phone: | | | | | | Phone: | [phone] | | | | | | [phone] | Fax: | | | | | | Fax: | [phone] | | | | | | [phone] | | +--------+--------+ + + + + Encounter Details +--------+ + + + + | Date | Type | Department | Care Team | Description | +--------+ + + + + | 05/04/ | Hospital | [facility] | Carly Jaime | Recurrent basal cell | | 2019 | Encounter | [facility] | MD [address] | carcinoma (Primary | | | | ONCOLOGY CLINIC [address] | [place], [place] | Dx); Basal cell | | | | [place] | [address] | carcinoma of skin of | | | | [place] [address] | | scalp and neck | | | | [phone] | | | +--------+ + + + [...] extensive sun exposure while working in the [employer] and was first diagnosed with a left neck basal cell carcinoma in 1997. 01/30/1998- biopsy done basal cell carcinoma, superficial type 05/01/2002- Biopsy done basal cell carcinoma, sclerosing type. Status post MOHS surgery @ [facility] 11/07/2008- Biopsy done basal cell carcinoma. Status post additional MOHS surgery @ [facility] 06/02/2018- Brain MRI following a witnessed seizure; no evidence of metastases. 07/12/2018- PET/CT scan; moderate uptake in the region of basal cell carcinoma left anterior neck, no evidence of metastatic disease. 07/19/18- Consult with Dr. Funk at [facility] in [facility]. 08/01/18- Consult with Dr. Singh 09/04/18-10/02/18- Radiation therapy here at [facility] 55 Gy in 20 fractions. Excellent response wi th resolution of ulcerated mass at anterior left low neck. 10/09/18-left carotid stenting w/neurointerventional radiology 04/05/19-Dominique Montague @ [facility] Dermatology Biopsies done- No recurrence in prior [...] Appetite without changes. Ear, Nose, Mouth, Throat: ELY SHOSHONE. Denies odynophagia, dysphagia, or tinnitus. Cardiovascular: Denies [...] you ever had radiation treatment: yes Comments: [facility], left anterior neck earlier this year. 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 Dr. Montague has [...] in 20 fractions directed to the lateral consumer relations specialist ior neck, abutting previous radiation treatment field. [...] M.D. Radiation Oncologist Department of Radiation Oncology [facility] Office: [phone] signed by Carly Jaime MD at 06/16/2019 [...] [place] | | | | | | [address] | | | | | | | [...] The | | | parapharyngeal, retropharyngeal, and bark fitter spaces are normal. | | | The [...]
--- OUTSIDE RECORDS SUMMARY | ~2020-03-03 | XMS | Encounter Summary ---
Demographics + + + | Address | [address] | | | [place] [address] | + + + | Home Phone | | + + + | Preferred Language | Unknown | + + + | Marital Status | | + + + | Hoahaoism Affiliation | Unknown | + + + | Race | White | + + + | Ethnic Group | Not or | + + + Author + + + | Author | [facility] | | | and [place] | + + + | Organization | [facility] | | [...] [place], [place] | | | | | [address] | | + + + + + | Isabella "Tiki" | ECON | [address] | | | [place] | | [place], [place] | | | | | [address] | | + + + + + Care Team Providers + +------+ + | Care Document Review Specialist Name | Role | Phone | [...] | | | ONCOLOGY CLINIC [address] | [place], [place] | neck (Primary Dx) | | | | [facility] | [address] | | | | | [place] [address] | | | | | | [phone] | | | +--------+ + + + [...] [place] | | | | | | [address] | | | | | | | | +--------+ + + + + documented as of this encounter Visit Diagnoses + + | Diagnosis | + + | Basal cell carcinoma (BCC) of skin of neck - Primary | + + documented in this encounter
--- OUTSIDE RECORDS SUMMARY | ~2020-03-03 | XMS | Encounter Summary ---
Demographics + + + | Address | [address] | | | [place] [address] | + + + | Home Phone [...] + + + | Author | [facility] | | | and [place] | + + + | Organization | [facility] | | | [...] [place], [place] | | | | | [address] | | + + + + + | Isabella "Tiki" | ECON | [address] | | | [place] | | [place], [place] | | | | | [address] | | + + + + + Care Team Providers + +------+ + | Care Service Dismantler Name | Role | Phone | + +------+ + | No, Physician | PCP | Unavailable | + +------+ + Reason for Visit +--------+--------+ + | Reason | Onset | Comments | | | Date | | +--------+--------+ + | Other | 12/26/ | Labs | | | 2020 | | +--------+--------+ + Encounter Details +--------+ + + + + | Date | Type | Department | Care Team | Description | +--------+ + + + + | 12/26/ | Telephone | [facility] | Radhames Rdz | Other (Labs) | | 2020 | | [address] | [address] | | | | | [place] | [place] | | | | | [address] | [place] [address] | | | | | [phone] | [phone] | | | | | | | [...] Encounter - Winifred Marquez Medical Assistant - 12/27/2019 11:55 AM Marlena jose welch to call back. Patient needs PSA, BMP labs prior to appointment on 01/01/20. [facility] umanderson in this encounter Plan of Treatment +--------+ [...]
--- OUTSIDE RECORDS SUMMARY | ~2020-03-03 | XMS | Encounter Summary ---
Demographics + + + | Address | [address] | | | [place] [address] | + + + | Home Phone [...] [place], [place] | | | | | [address] | | + + + + + | Isabella "Tiki" | ECON | [address] | | | [place] | | [place], [place] | | | | | [address] | | + + + + + Care Team Providers + +------+ + | Care Brush Holder Inspector Name | Role | Phone | [...] + + | 09/07/ | Hospital | [facility] | Ashu Singh DO | Recurrent basal cell | | 2019 | Encounter | [facility]ATION | [address] | carcinoma (Primary | | | | ONCOLOGY CLINIC [address] | [place] | Dx) | | | | [address] | [address] | | | | | [place] [address] | | | | | | [phone] | | | +--------+ + + + [...] primary lesion which was previously managed with [place]. I will review and renew th is [...] [place] | | | | | | [address] | | | | | | | | +--------+ + + + + documented as of this encounter Visit Diagnoses + + | Diagnosis | + + | Recurrent basal cell carcinoma - Primary Basal cell carcinoma of skin, site | | unspecified | + + documented in this encounter
--- OUTSIDE RECORDS SUMMARY | ~2020-03-03 | XMS | Clinical Summary ---
Demographics + + + | Address | [address] | | | [place] [address] | + + + | Home Phone | | + + + | Preferred Language | Unknown | + + + | Marital Status | | + + + | Alevism Affiliation | NRP | + + + [...] [place] | | | | | [address] | | + + + + + Care Team Providers + +------+ + | Care Sociology Research Assistant Name | Role | Phone | + +------+ + | No Pcp Per Patient | PCP | Unavailable | + +------+ + Source Comments KRISTI is fully live on both [facility] Ambulatory and [facility] InPatient.[facility] Allergies No Known Allergies Medications + + [...] , 10/06. Has | | been intermittent. [place]-dark red blood observed, no clots. UA | [...] | wound gently with warm wet gauze. [place] periwound skin with | | Cav[place] skin [...] + + Plan of Treatment + + +-------+ + | Health Maintenance | Due Date | Last | Comments | | | | Done | | + + +-------+ + | Pneumococcal | | | | | vaccination (1 of 2 | 9 | | | | - PCV13) | | | | + + +-------+ + | Influenza (Flu) | | | | | vaccination (Season | 0 | | | | Ended) | | | | + + +-------+ + Results Not on filefrom Last 3 Months Insurance +---------+--------+ +--------+ +---------+--------+ | Payer | Benefi | Subscriber | Effect | Phone | Address | Type | | | t Plan | ID | isaura | | | | | | / | | Dates | | | | | | Group | | | | | | +---------+--------+ +--------+ +---------+--------+ | | TRICAR | [id number] | 10/07/19 | [phone] | | Indemn | | | [address] | | [...] | | al/Fam | | 1955 | [phone] | [place] | | | fr[place]isca | | | 5 (Home) | [phone] | | | | | | [phone] | | | | | | | 4 (Work) | | + +--------+ +--------+ + + Advance Directives + + + + + | Type | Date Recorded | Patient | Explanation | | | | Corporate Technical Recruiter | | + + + + + | Advance | | | | | Directives and | | | | | Living Will | | | | + + + + + | Power of | | | | | Costume Mistress | | | | + + + [...]
--- OUTSIDE RECORDS SUMMARY | ~2020-03-03 | XMS | Encounter Summary ---
Demographics + + + | Address | [address] | | | [place] [address] | + + + | Home Phone | | + + + | Preferred Language | Unknown | + + + | Marital Status | | + + + | Adventism Affiliation | Unknown | + + + | Race | White | + + + | Ethnic Group | Not or | + + + Author + + + | Author | [facility] | | | and [place] | + + + | Organization | [facility] | | | [...] [place], [place] | | | | | [address] | | + + + + + | Isabella "Tiki" | ECON | [address] | | | [place] | | [place], [place] | | | | | [address] | | + + + + + Care Team Providers + +------+ + | Care Division Head Name | Role | Phone | + [...] + + | 08/11/ | Telephone | [facility] | Ashu Singh DO | Other | | 2019 | | MED CTR MEDICAL | [address] [facility] | | | | | ONCOLOGY CLINIC [address] | [place] | | | | | [address] | [address] | | | | | [place] [address] | | | | | | [phone] | | | +--------+ + + + [...] week as they have to drive from [facility] and she feels that th at would over stress him. Asks for call back @ either of these #'s [phone] Thank you CC Milagros Moran and Rad [...] [place] | | | | | | [address] | | | | | | | | +--------+ + + + + documented as of this encounter Visit Diagnoses Not on filedocumented in this encounter
--- OUTSIDE RECORDS SUMMARY | ~2020-03-03 | XMS | Encounter Summary ---
Demographics + + + | Address | [address] | | | [place] [address] | + + + | Home Phone | | + + + | Preferred Language | Unknown | + + + | Marital Status | | + + + | Worship Affiliation | NRP | + + + [...] [place] | | | | | [address] | | + + + + + Care Team Providers + +------+ + | Care Manager Studio Name | Role | Phone | + [...] + + | 11/29/ | Refill | [facility] | Deion Sommer, | Refill Request | | 2019 | | [facility] [place] | [address] | | | | | [facility] | [address] | | | | | [address] | [place], [place] | | | | | [place] | [address] | | | | | [facility], | [phone] | | | | | floor [place], [place] | | | | | | [address] | | | | | | [phone] | | | +--------+--------+ + + + [...]
--- OUTSIDE RECORDS SUMMARY | ~2020-03-03 | XMS | Encounter Summary ---
Demographics + + + | Address | [address] | | | [place] [address] | + + + | Home Phone [...] + + + | Author | [facility] | | | and [place] | + + + | Organization | [facility] | | [...] [place], [place] | | | | | [address] | | + + + + + | Isabella "Tiki" | ECON | [address] | | | [place] | | [place], [place] | | | | | [address] | | + + + + + Care Team Providers + +------+ + | Care Vp Sales Name | Role | Phone | + [...] + + | 12/26/ | Telephone | [facility] | Radhames Rdz | Other (Labs) | | 2020 | | [address] | [address] | | | | | [address] | [place] | | | | | [address] | [place] [address] | | | | | [phone] | [phone] | | | | | | | [...] BMP labs prior to appointment on 01/01/20. [facility] umanderson in this encounter Plan of Treatment [...]
--- OUTSIDE RECORDS SUMMARY | ~2020-03-03 | XMS | Encounter Summary ---
Demographics + + + | Address | [address] | | | [place] [address] | + + + | Home Phone | | + + + | Preferred Language | Unknown | + + + | Marital Status | | + + + | Taoism Affiliation | NRP | + + + [...] [place] | | | | | [address] | | + + + + + Care Team Providers + +------+ + | Care Cancer Program Director Name | Role | Phone | [...] as of this encounter Progress Notes Interface, Secondary School Teacher In - 02/10/2006 1:08 AM PDT May [...]
--- OUTSIDE RECORDS SUMMARY | ~2020-03-03 | XMS | Encounter Summary ---
Demographics + + + | Address | [address] | | | [place] [address] | + + + | Home Phone [...] [place], [place] | | | | | [address] | | + + + + + | Isabella "Tiki" | ECON | [address] | | | [place] | | [place], [place] | | | | | [address] | | + + + + + Care Team Providers + +------+ + | Care Digital Strategy Manager Name | Role | Phone | + +------+ + | No, Physician | PCP | Unavailable | + +------+ + Encounter Details +--------+ + + + + | Date | Type | Department | Care Team | Description | +--------+ + + + + | 05/09/ | Hospital | [facility] | Yeni Carly | | | 2019 | Encounter | [facility] | MD [address] | | | | | ONCOLOGY [address] | [facility] [place], [place] | | | | | [place], | [address] | | | | | [place] [address] | | | | | | [phone] | | | +--------+ + + + [...] [place] | | | | | | [id number] | | | | | | | | +--------+ + + + + documented as of this encounter Visit Diagnoses Not on filedocumented in this encounter
--- OUTSIDE RECORDS SUMMARY | ~2020-03-03 | XMS | Encounter Summary ---
Demographics + + + | Address | [address] | | | [place] [address] | + + + | Home Phone [...] Author | [facility] | + + + | Organization | [facility] | + + + | Address | Unknown | + + + | Phone | Unavailable | + + + Support + + + + + | Name | Relationship | Address | Phone | + + + + + | Alanna Merino | [address] | [address] | | | | | [address] | | | | | [address] | | + + + + + Care Team Providers + +------+ + | Care Civil Drafting Technician Name | Role | Phone | + +------+ + | No Pcp Per Patient | PCP | Unavailable | + +------+ + Reason for Visit + +--------+ + | Reason | Onset | Comments | | | Date | | + +--------+ + | Refill Request | 11/20/ | | | | 2019 | | + +--------+ + Encounter Details +--------+--------+ + + + | Date | Type | Department | Care Team | Description | +--------+--------+ + + + | 11/20/ | Refill | [facility] | Mariposa Avila, | Refill Request | | 2019 | | [facility] [place] | RN [address] | | | | | [facility] | [address] | | | | | [address] | [place], [place] | | | | | [address] [place] | [address] | | | | | [facility], | | | | | | floor [place], [place] | | | | | | [address] | | | | | | [phone] | | | +--------+--------+ + + + [...]
--- OUTSIDE RECORDS SUMMARY | ~2020-03-03 | XMS | Encounter Summary ---
Demographics + + + | Address | [address] | | | [place] [address] | + + + | Home Phone | | + + + | Preferred Language | Unknown | + + + | Marital Status | | + + + | Taoist Affiliation | Unknown | + + + | Race | White | + + + | Ethnic Group | Not or | + + + Author + + + | Author | [facility] | | | and [place] | + + + | Organization | [facility] | | [...] [place], [place] | | | | | [address] | | + + + + + | Isabella "Tiki" | ECON | [address] | | | [place] | | [place], [place] | | | | | [address] | | + + + + + Care Team Providers + +------+ + | Care Dialysis Patient Care Technician Name | Role | Phone | + +------+ + | Alen Bolanos MD | PCP | | + +------+ + Reason for Visit + +--------+ + | Reason | Onset | Comments | | | Date | | + +--------+ + | Medication Refill | 09/04/ | | | | 2018 | | + +--------+ + Encounter Details +--------+--------+ + + + | Date | Type | Department | Care Team | Description | +--------+--------+ + + + | 09/04/ | Refill | [facility] | Ashu Singh DO | Medication Refill | | 2018 | | MED CTR RAD[facility] | [address] [facility] | | | | | ONCOLOGY CLINIC [address] | [place] | | | | | [address] | [address] | | | | | [place] [address] | | | | | | [phone] | | | +--------+--------+ + + + [...] Telephone Encounter - Danielle Robb RN - 09/04/2018 3:32 PM PSTSpoke to patient's , patient is needing a refill for the Gabapentin which he is taking 300 mg two tablets three times daily. He also need a refill for his hydrocodone. Dr. Singh is asking that he get the y hydrocodone refilled per his PCP as he did not originally order this. I notified of this. elephone Encou nter - Danielle Robb RN - 09/04/2018 1:24 PM PSTTherapist notified me that patient is ne eding refills on three different medications, attempted to reach patient or family member to clarify this request. Unable to reach patient, spouse or daughter, Will attempt to reach later. documented in this encounter Plan of Treatment [...] [place] | | | | | | [address] | | | | | | | | +--------+ + + + + documented as of this encounter Visit Diagnoses + + | Diagnosis | + + | Recurrent basal cell carcinoma Basal cell carcinoma of skin, site unspecified | + + documented in this encounter
--- OUTSIDE RECORDS SUMMARY | ~2020-03-03 | XMS | Encounter Summary ---
Demographics + + + | Address | [address] | | | [place] [address] | + + + | Home Phone | | + + + | Preferred Language | Unknown | + + + | Marital Status | | + + + | Scientology Affiliation | Unknown | + + + | Race | White | + + + | Ethnic Group | Not or | + + + Author + + + | Author | [facility] | | | and [place] | + + + | Organization | [facility] | | | [...] [place], [place] | | | | | [address] | | + + + + + | Isabella "Tiki" | ECON | [address] | | | [place] | | [place], [place] | | | | | [address] | | + + + + + Care Team Providers + +------+ + | Care Utility Person Name | Role | Phone | + [...] + + | 03/29/ | Telephone | [facility] | Ashu Singh, DO | Appointment | | 2019 | | MED CTR MEDICAL | [address] [facility] | | | | | ONCOLOGY CLINIC [address] | [place] | | | | | [address] | [address] | | | | | [place] [address] | | | | | | [phone] | | | +--------+ + + + [...] [place] | | | | | | [id number] | | | | | | | | +--------+ + + + + documented as of this encounter Visit Diagnoses Not on filedocumented in this encounter
--- OUTSIDE RECORDS SUMMARY | ~2020-03-03 | XMS | Encounter Summary ---
Demographics + + + | Address | [address] | | | [place] [address] | + + + | Home Phone [...] + + + | Author | [facility] | | | and [place] | + + + | Organization | [facility] | | | [...] [place], [place] | | | | | [address] | | + + + + + | Isabella "Tiki" | ECON | [address] | | | [place] | | [place], [place] | | | | | [address] | | + + + + + Care Team Providers + +------+ + | Care Edger Technician Name | Role | Phone | [...] | | | | | [address] | [place] [address] | | | | | [place] [address] | | | | | | [phone] | | | +--------+ + + + [...] [place] | | | | | | [address] | | | | | | | [...]
--- OUTSIDE RECORDS SUMMARY | ~2020-03-03 | XMS | Encounter Summary ---
Demographics + + + | Address | [address] | | | [place] [address] | + + + | Home Phone [...] | [facility] | | | and [place] | + + + | Organization | [facility] | | [...] [place], [place] | | | | | [address] | | + + + + + | Isabella "Tiki" | ECON | [address] | | | [place] | | [place], [place] | | | | | [address] | | + + + + + Care Team Providers + +------+ + | Care Dragline Engineer Name | Role | Phone | [...] + + | 02/21/ | Telephone | [facility] | Ashu Singh DO | Family/caregiver | | 2018 | | MED CTR MEDICAL | [address] [facility] | Concerns | | | | ONCOLOGY CLINIC [address] | [place] | | | | | [address] | [address] | | | | | [place] [address] | | | | | | [phone] | | | +--------+ + + + [...] Spoke with Greta on the phone at [facility]. She states that they [...] ar e flexible, but they live in [place] so prefer nothing early in morning. Please call if paulino arnold can help. [phone] signed by Cody Sharif at 02/21/2019 9:20 [...] [place] | | | | | | [address] | | | | | | | | +--------+ + + + + documented as of this encounter Visit Diagnoses Not on filedocumented in this encounter
--- OUTSIDE RECORDS SUMMARY | ~2020-03-03 | XMS | Encounter Summary ---
Demographics + + + | Address | [address] | | | [place] [address] | + + + | Home Phone | | + + + | Preferred Language | Unknown | + + + | Marital Status | | + + + | Spiritism Affiliation | Unknown | + + + | Race | White | + + + | Ethnic Group | Not or | + + + Author + + + | Author | [facility] | | | and [place] | + + + | Organization | [facility] | | [...] [place], [place] | | | | | [address] | | + + + + + | Isabella "Tiki" | ECON | [address] | | | [place] | | [place], [place] | | | | | [address] | | + + + + + Care Team Providers + +------+ + | Care Rn Gyn Name | Role | Phone | + +------+ + | Alen Bolanos MD | PCP | | + +------+ + Encounter Details +--------+ + + + + | Date | Type | Department | Care Team | Description | +--------+ + + + + | 08/01/ | Hospital | [facility] | Ashu Singh DO | | | 2019 | Encounter | MED CTR RADIATION | [address] | | | | | ONCOLOGY [address] | [place] | | | | | [place], | [address] | | | | | [place] [address] | | | | | | [phone] | | | +--------+ + + + [...] [place] | | | | | | [address] | | | | | | | | +--------+ + + + + documented as of this encounter Visit Diagnoses Not on filedocumented in this encounter
--- OUTSIDE RECORDS SUMMARY | ~2020-03-03 | XMS | Encounter Summary ---
Demographics + + + | Address | [address] | | | [place] [address] | + + + | Home Phone [...] [place], [place] | | | | | [address] | | + + + + + | Isabella "Tiki" | ECON | [address] | | | [place] | | [place], [place] | | | | | [address] | | + + + + + Care Team Providers + +------+ + | Care Mice Raiser Name | Role | Phone | + +------+ + | Alen Bolanos MD | PCP | | + +------+ + Encounter Details +--------+ + + + + | Date | Type | Department | Care Team | Description | +--------+ + + + + | 07/24/ | Imaging | [facility] | Provider, | | | 2019 | Exam | MED [facility] EXTERNAL | MD Llu[address] | | | | | IMAGING [address] | [place] | | | | | [address] [place] | [place] [address] | | | | | [place] [address] | | | | | | [phone] | | | +--------+ + + + [...] [place] | | | | | | [address] | | | | | | | [...]
--- OUTSIDE RECORDS SUMMARY | ~2020-03-03 | XMS | Encounter Summary ---
Demographics + + + | Address | [address] | | | [place] [address] | + + + | Home Phone [...] + + | Author | [facility] | | | and [place] | + + + | Organization | [facility] | | | [...] [place], [place] | | | | | [address] | | + + + + + | Isabella "Tiki" | ECON | [address] | | | [place] | | [place], [place] | | | | | [address] | | + + + + + Care Team Providers + +------+ + | Care Credit Or Loans Officer Name | Role | Phone | [...] + + | 12/27/ | Office | [facility] | Radhames Rdz | Hematuria, | | 2019 | Visit | [address] | MD [address] | unspecified type | | | | [place] | [place] | (Primary Dx); Benign | | | | [address] | [place] [address] | prostatic | | | | [phone] | [phone] | hyperplasia, | | | | | [...] documented in this encounter Progress Winifred Eastman, Deicer Kit Assembler - 12/27/2018 10:15 AM PDTFormatting of this note migh t be different from the original. Administrations This Visit gentamicin injection 80 mg Admin Date 12/27/2018 Action Given Dose 80 mg Route Intramuscular Administered By Winifred Marquez Deicer Kit Assembler Patient tolerated injection well........... Winifred Marquez CMA on 12/27/18 at 10:24 Sent urine to [facility] for cytology via home care aide with Reflex for UroVysion (FISH) if cytology [...] a past history of duty in the [employer] for 20 year s. He recently [...] This document was generated in part using Film[employer] voice recognition software. Although ever y effort is made to edit the content, crematorium operator errors may occur. Occasional wrong word or [...] [place] | | | | | | [address] | | | | | | | [...] 1.001 - 1.030 | | | | [place], | | | | | | UA, [...] AN ADDENDUM REPORT ORDERING PHYSICIAN: Kendell | [facility] | | Radhames HANNAH PATIENT NAME: [...] preparation was | | | performed by [facility], [address] [place] [address] | | | [place] [address] (Production Control Technologist: Charbel Cummings D.O.; CLIA#: | | | [id number]). Professional interpretation was performed by [facility] | | | [facility], [address] [facility] [address], | | | [place], [place] [address] (Production Control Technologist: Adrián Porras MD; CLIA# | | | [id number]). REASON FOR ADDENDUM REPORT: FISH Analysis | [...] | | | have been determined by [facility]. Nuclei Scored: | | | 100 Probe Set: Chrom 3: EDMUND 3, Chrom 7: EDMUND 7, Chrom 17: EDMUND | | | 17, Chrom 9: p16 Scoring Method: Computer Assisted Technology CPT | | | Code: 82133 # of Units: 1 PERFORMING LABORATORY: All controls | | | were within expected ranges. The Technical Component Processing and | | | Analysis of this test was completed at [facility] [place], [address] | | | [place], [place] / [address] / [phone] / CLIA # | | | [id number]. / Production Control Technologist(s): Eusebio Mesa M.D.. The Professional | | | Component of this test was completed at [facility] [place], [facility] | | | [place] / [address] / [phone] / CLIA | | | #[id number] / Production Control Technologist(s): Nadege Dupree M.D. | | | (Accession / CaseNo: [id number] / [id number]) Detailed report kept on | | | file. [facility] FISH test uses either FDA cleared | | | and/or analyte specific reagent (ASR) probes. This test was developed | | | and its performance characteristics determined by [facility] | | | Laboratories. It has not [...] | | included within this report are payable representative of the patient but not | | | all testing in its entirety and should not be used to render a result. | | | The CPT codes provided with our test descriptions are based on AMA | | | guidelines and are for informational purposes only. Correct CPT coding | | | is the sole responsibility of the billing green party. Please direct any | | | questions regarding coding to the payer being billed. | | | Diagnostician: Althea WILL ([facility]) Lime Mixer | | | Diagnostician: Adrián Porras MD [...]
--- OUTSIDE RECORDS SUMMARY | ~2020-03-03 | XMS | Encounter Summary ---
Demographics + + + | Address | [address] | | | [place] [address] | + + + | Home Phone | | + + + | Preferred Language | Unknown | + + + | Marital Status | | + + + | Mormonism Affiliation | NRP | + + + [...] [place] | | | | | [address] | | + + + + + Care Team Providers + +------+ + | Care Wind Up Worker Name | Role | Phone [...] of skin | | | | [facility] | | | | | | [facility] and Healing, | | | | | | [facility] [address], | | | | | | Floor [place], [place] | | | | | | [address] | | | | | | [phone] | | | +--------+ + + + [...] Kelsi Bird MD - 12/23/2008 2:57 PM [facility] -Apply ice over the [...] than the day before How to Reach Us [phone] Toll-free [phone] Evenings and Weekends: [phone] documented in this encounter Progress Notes Lia [...] I certify my performance of the procedure. werKelsi tom MD - 12/24/19 09 5:34 PM PDTChief [...] neck SURGEON: Steve De La Cruz M.D. GUEST LAUNDRY ATTENDANT: Boy Gomes MD and Kelsi Bird MD [...] neck SURGEON: Steve De La Cruz M.D. GUEST LAUNDRY ATTENDANT: Boy Gomes MD and Kelsi Bird MD [...] CLOSURE SURGEON: Steve De La Cruz M.D. GUEST LAUNDRY ATTENDANT: Boy Gomes MD and Kelsi Bird MD [...] procedure. Billy Medellin - 12/03 8:58 AM [id number] 2gm po given per vo KL with readback. documented in this encounter Procedure Notes Other, Faculty - 03/18/2009 10:57 PM PDT documented in t his encounter Miscellaneous Notes Scan - Other, Faculty - 03/19/2009 9:18 PM PDT documented in t his encounter Plan of Treatment + + +--------+ + + | Name | Type | Priori | Associated Diagnoses | Order Schedule | | | | ty | | | + + +--------+ + + | TX EDGARD,1 | Procedures | Routin | Other Malignant | Ordered: 12/23/2008 | | STAGE,H/N/HF/G | | e | Neoplasm of Scalp | | | | | | and Skin of Neck | | + + +--------+ + + | TX EDGADR ADDL STAGE | Procedures | Routin | Other Malignant | Ordered: 12/23/2008 | | | | e | Neoplasm of Scalp | | | | | | and Skin of Neck | | + + +--------+ + + | TX REPR CMPL WND | Procedures | Routin | Other Malignant | Ordered: 12/23/2008 | | HEAD,FAC,HAND | | e | Neoplasm of Scalp | | | 2.6-7.5 | | | and Skin of Neck | | + + +--------+ + + | [place] | Procedures | Routin | Other Malignant [...]
--- OUTSIDE RECORDS SUMMARY | ~2020-03-03 | XMS | Encounter Summary ---
Demographics + + + | Address | [address] | | | [place] [address] | + + + | Home Phone | | + + + | Preferred Language | Unknown | + + + | Marital Status | | + + + | Gnosticist Affiliation | Unknown | + + + | Race | White | + + + | Ethnic Group | Not or | + + + Author + + + | Author | [facility] | | | and [place] | + + + | Organization | [facility] | | [...] [place], [place] | | | | | [address] | | + + + + + | Isabella "Tiki" | ECON | [address] | | | [place] | | [place], [place] | | | | | [address] | | + + + + + Care Team Providers + +------+ + | Care Wire Rope Sales Representative Name | Role | Phone | + [...] Basal cell | Carly M, | [address] | | | | | carcinoma of | MD [address] | [place], | | | | | skin of | [address] | [place] [address] | | | | | scalp and | [place], | Phone: | | | | | neck | [place] [address] | [phone] | | | | | Recurrent | Phone: | Fax: | | | | | basal cell | [phone] | [phone] | | | | | carcinoma | Fax: | | | | | | Procedures | [phone] | | | | | | CT [...] | | | | Basal cell | Acrly M, | [address] | | | | | carcinoma of | MD [address] | [place], | | | | | skin of | [address] | [place] [address] | | | | | scalp and | [place], | Phone: | | | | | neck | [place] [address] | [phone] | | | | | Recurrent | Phone: | Fax: | | | | | basal cell | [phone] | [phone] | | | | | carcinoma | Fax: | | | | | | Procedures | [phone] | | | | | | CT Soft | | | | | | | Tissue Neck | | | | | | | w Contrast | | | +--------+--------+ + + + + Encounter Details +--------+ + + + + | Date | Type | Department | Care Team | Description | +--------+ + + + + | 05/09/ | Hospital | [facility] | Carly Jaime | Basal cell carcinoma | | 2019 | Encounter | MED CTR [facility] [address] | M, MD [address] | of skin of scalp | | | | [place], | [place], [place] | and neck ; Recurrent | | | | [place] [address] | [address] | basal cell | | | | [phone] | | carcinoma | +--------+ + + [...] [place] | | | | | | [id number] | | | | | | | [...] The | | | parapharyngeal, retropharyngeal, and blocker and polisher gold wheel spaces are normal. | | | The [...]
--- OUTSIDE RECORDS SUMMARY | ~2020-03-03 | XMS | Encounter Summary ---
Demographics + + + | Address | [address] | | | [place] [address] | + + + | Home Phone | | + + + | Preferred Language | Unknown | + + + | Marital Status | | + + + | Hinduism Affiliation | Unknown | + + + | Race | White | + + + | Ethnic Group | Not or | + + + Author + + + | Author | [facility] | | | and [place] | + + + | Organization | [facility] | | [...] [place], [place] | | | | | [address] | | + + + + + | Isabella "Tiki" | ECON | [address] | | | [place] | | [place], [place] | | | | | [address] | | + + + + + Care Team Providers + +------+ + | Care Vp Integrity Name | Role | Phone | + +------+ + | No, Physician | PCP | Unavailable | + +------+ + Reason for Visit + +--------+ + | Reason | Onset | Comments | | | Date | | + +--------+ + | Scheduling Issues | 05/14/ | | | | 2018 | | + +--------+ + Encounter Details +--------+ + + + + | Date | Type | Department | Care Team | Description | +--------+ + + + + | 05/14/ | Telephone | [facility] | Carly Jaime | Scheduling Issues | | 2018 | | MED CTR RADIATION | MD [address]au[address] | | | | | ONCOLOGY CLINIC [address] | [place], [place] | | | | | [address] [facility] | [address] | | | | | [place] [address] | | | | | | [phone] | | | +--------+ + + + [...] Telephone Encounter - Danielle Robb RN - 05/14/2019 2:54 PM PSTNotified Huong that everardo mccormick's spouse is asking about start time. She will call to let them know their start date. elephone Encounter - Crissy Mitchell - 05/14/2019 2:10 PM PSTAlanna is calling back to get Miguel A Merino back i nto radiation please give her a call. 2 :14 PM PSTdocumented in this encounter Plan of Treatment +--------+ + + + + | Date | Type | Specialty | Care Team | Description | +--------+ + + + + | 03/26/ | Appointment | Radiation Oncology | Papito Alvarez MD | | | 2020 | | | [address] | | | | | | [place] | | | | | | [address] | | | | | | | | +--------+ + + + + documented as of this encounter Visit Diagnoses Not on filedocumented in this encounter
--- OUTSIDE RECORDS SUMMARY | ~2020-03-03 | XMS | Encounter Summary ---
Demographics + + + | Address | [address] | | | [place] [address] | + + + | Home Phone [...] + | Author | [facility] | | | and [place] | + + + | Organization | [facility] | | | [...] [place], [place] | | | | | [address] | | + + + + + | Isabella "Tiki" | ECON | [address] | | | [place] | | [place], [place] | | | | | [address] | | + + + + + Care Team Providers + +------+ + | Care Records Administrator Name | Role | Phone | + +------+ + | No, Physician | PCP | Unavailable | + +------+ + Encounter Details +--------+ + + + + | Date | Type | Department | Care Team | Description | +--------+ + + + + | 05/24/ | Hospital | [facility] | Yeni Carly | Recurrent basal cell | | 2019 | Encounter | MED CTR RADIATION | MD [address] | carcinoma (Primary | | | | ONCOLOGY CLINIC [address] | [place], [place] | Dx) | | | | [facility] | [address] | | | | | [place] [address] | | | | | | [phone] | | | +--------+ + + + [...] [place] | | | | | | [address] | | | | | | | | +--------+ + + + + documented as of this encounter Visit Diagnoses + + | Diagnosis | + + | Recurrent basal cell carcinoma - Primary Basal cell carcinoma of skin, site | | unspecified | + + documented in this encounter
--- OUTSIDE RECORDS SUMMARY | ~2020-03-03 | XMS | Encounter Summary ---
Demographics + + + | Address | [address] | | | [place] [address] | + + + | Home Phone [...] [place], [place] | | | | | [address] | | + + + + + | Isabella "Tiki" | ECON | [address] | | | [place] | | [place], [place] | | | | | [address] | | + + + + + Care Team Providers + +------+ + | Care Road Conductor Name | Role | Phone | + +------+ + | No, Physician | PCP | Unavailable | + +------+ + Reason for Visit + + + | Reason | Comments | + + + | Follow-up | | + + + | Oral Head Neck | | | Cancer | | + + + Evaluate & [...] | | | | Procedures | [address] | [place] | | | | | [address] | [place], [place], | | | | | | [place] | [place] [address] | | | | | | [address] | Phone: | | | | | | Phone: | [phone] | | | | | | [phone] | Fax: | | | | | | Fax: | [phone] | | | | | | [phone] | | +--------+--------+ + + + + Encounter Details +--------+ + + + + | Date | Type | Department | Care Team | Description | +--------+ + + + + | 12/23/ | Hospital | [facility] | Silke Garcia | Recurrent basal cell | | 2020 | Encounter | [facility] | EMILY Sykes [address] | carcinoma (Primary | | | | ONCOLOGY CLINIC [address] | [address] | Dx) | | | | [address] | [place] [address] | | | | | [place] [address] | [phone] | | | | | [phone] | | | +--------+ + + + [...] + + + +---------+ + + | buPROPion | take 1 tablet by | | 0 | 09/24/19 | | | (WELLBUTRIN XL) 150 | mouth once daily | | | 20 | | | mg 24 hr tablet | | | | | | [...] + +---------+ + + | lisinopril | TAKE 1 TABLET BY | | 0 | 08/14/19 | | | (PRINIVIL, ZESTRIL) | MOUTH EVERY DAY | | | 20 | | | 20 mg tablet | | | | | | | | ... (REFER | | | | | | | TO PRESCRIPTION | | | | | | | NOTES). | | | | | + + + +---------+ + + | omeprazole | Take 20 mg by mouth | | 0 | | | | (PRILOSEC) 20 mg | every morning | | | | | | capsule | (before breakfast). | | | | | + + + +---------+ + + documented as of this encounter Progress Notes Silke Garcia ARNP - 12/24/2019 11:00 AM PDTFormatting of this note might be diffe rent from the original. Radiation Oncology Follow-up Patient Name: GUILHERME JORGE Date of : 1955 Age: 64 y.o. PCP: No Physician on file Chief Complaint/ICD10: ICD-10-CM ICD-9-CM 1. Recurrent basal cell carcinoma C44.91 173.91 History of Present Illness Guilherme Jorge was initially diagnosed with basal cell carcinoma involving his left nec k in 1997. He has had extensive sun exposure in his lifetime, working in the [employer]. 01/30/1998- biopsy done basal cell carcinoma, superficial type 05/01/2002- Biopsy done basal cell carcinoma, sclerosing type. Status post MOHS surgery @ [facility] 11/07/2008- Biopsy done basal cell carcinoma. Status post additional MOHS surgery @ [facility] 06/02/2018- Brain MRI following a witnessed seizure; no evidence of metastases. 07/12/2018- PET/CT scan; moderate uptake in the region of basal cell carcinoma left anterior neck, no evidence of metastatic disease. 07/19/18- Consult with Dr. Funk at [facility] in [facility]. 08/01/18- Consult with Dr. Singh 09/04/18-10/02/18- Radiation therapy here at [facility] 55 Gy in 20 fractions. Excellent response wi th resolution of ulcerated mass at anterior left low neck. 10/09/18-left carotid stenting w/neurointerventional radiology 04/05/19-Dominique Montague @ [facility] Dermatology Biopsies done- No recurrence in prior radiation field, however posterior neck biopsies positive for recurrent BCC> 04/17/19- FU with Dominique Montague and referral placed based on pathology Basal Cell Carcinoma left lateral and posterior neck. 05/16/2019 to 06/14/2019 Radiation therapy to left neck, 5500 cGy in 20 fractions over 29 d ays. Reason for Office Visit/Interval History Returning to our office for a post-treatment exam was delayed by COVID-19 pandemic. He was offered a telephone visit, but opted to be seen in office today. He presents today, accomp anied by his , with the news that she has a recent diagnosis of terminal kidney cancer, being treated by Dr. Funk in [place]. Mr. Jorge feels well. He states he is able to eat and denies any pain in his neck. He daniel es any issues with range of motion. He denies any new lesions. He does states that his skin in the radiation field is dry. Medical History No Known Allergies Past Medical History: Diagnosis Date Acute ischemic left ICA stroke (HCC) Basal cell carcinoma of skin neck Cancer of skin of neck Carotid stenosis, left CVA (cerebral vascular accident) (HCC) Dyslipidemia Hearing loss Hematuria Hypertension Kidney stones Seasonal allergies TIA (transient ischemic attack) Vascular dementia (HCC) Past Surgical History: Procedure Laterality Date Left ICA stent 10/09/2018 MOHS SURGERY 2001 & 2009 @ [facility] SKIN CANCER EXCISION TONSILLECTOMY VASECTOMY Family History Problem Relation Age of Onset Cancer Father Social History Socioeconomic History Marital status: Spouse name: Not on file Number of children: Not on file Years of education: Not on file Highest education level: Not on file Occupational History Not on file Social Needs Financial resource strain: Not on file Food insecurity Worry: Not on file Inability: Not on file Transportation needs Medical: Not on file Non-medical: Not on file Tobacco Use Smoking status: [...] with sleeping" Sexual activity: Not on file Lifestyle Physical activity Days per week: Not on file Minutes per session: Not on file Stress: Not on file Relationships Social connections Talks on phone: Not on file Gets together: Not on file Attends nondenominational service: Not on file Active member of club or organization: Not on file Attends meetings of clubs or organizations: Not on file Relationship status: Not on file Intimate partner violence Fear of current or ex partner: Not on file Emotionally abused: Not on file Physically abused: Not on file Forced sexual activity: Not on file Other Topics Concern Not on file Social History Narrative Not on file Patient's medical history above reviewed and updated on 12/19/2019 Medications Current Outpatient Medications Medication Sig Dispense Refill [...] ). No current facility-administered medications for this visit. Medications reviewed and updated on 12/19/2019 Review of Systems Constitutional: Reports moderate to severe fatigue, since CVA in October 2018.. Denies high f addie, shaking chills, anorexia, nausea, vomiting, weight loss, or night sweats. Appetite w ithout changes. Ear, Nose, Mouth, Throat: Reports ongoing hard of hearing. Denies odynophagia, dysphagia, o r tinnitus. Cardiovascular: Denies shortness of breath, dyspnea on exertion, chest pain, palpitations o r orthopnea. Respiratory: Denies cough, hemoptysis, or sputum production. Gastrointestinal: Denies abdominal pain, constipation, diarrhea, melena, or bright red bloo d per rectum. Genitourinary: Denies hematuria or dysuria. Musculoskeletal: Reports "old age" joint discomforts. Denies joint pain or tenderness. Neurologic: Reports ongoing loss of peripheral vision due to the CVA. Denies headache, vis ual changes, or numbness/tingling of the extremities. Endocrine: Denies peripheral edema or heat/cold intolerance. Hematologic: Denies spontaneous bruising or bleeding. Integumentary: Reports ongoing tightness of skin left side of neck. Denies rash, wounds or other skin concerns. Pain: Denies pain. Pain assessment: Location:NA Pain Level:0 Nursing Note: Here for follow up visit with EMILY Ortega. My chart: Inactive Physical Exam There were no vitals filed for this visit. Wt Readings from Last 3 Encounters: 06/14/19 85.5 kg (188 lb 7.9 oz) 06/07/19 85.6 kg (188 lb 11.4 oz) 05/30/19 85.6 kg (188 lb 11.4 oz) ECO Physical Exam Constitutional: General: He is not in acute distress. Eyes: Conjunctiva/sclera: Conjunctivae normal. Pupils: Pupils are equal, round, and reactive to light. Cardiovascular: Rate and Rhythm: Normal rate and regular rhythm. Pulses: Normal pulses. Heart sounds: Normal heart sounds. Pulmonary: Effort: Pulmonary effort is normal. Breath sounds: Normal breath sounds. Chest: Comments: Left supraclav area is thickened and skin is taught, however no lymph nodes pa lpated. Abdominal: General: Bowel sounds are normal. Palpations: Abdomen is soft. There is no mass. Tenderness: There is no abdominal tenderness. Musculoskeletal: Normal range of motion. Right lower leg: No edema. Left lower leg: No edema. Lymphadenopathy: Cervical: No cervical adenopathy. Upper Body: Right upper body: No supraclavicular or axillary adenopathy. Left upper body: No supraclavicular or axillary adenopathy. Skin: General: Skin is warm and dry. Comments: Left neck skin with moderate radiation-induced hyperpigmentation. Neurological: Mental Status: He is alert and oriented to person, place, and time. Psychiatric: Mood and Affect: Mood normal. Assessment Mr. Guilherme Jorge is a 64 y.o. male who, after having undergone local therapies with t opical treatments, surgical resection and prior radiation, had a biopsy proven recurrence of basal cell cancer to his posterior left neck on 04/05/2019. This recurrence did not occur in a previous radiation field. He continued to have a very good response to treatment in the previous radiation field. CT of the neck performed 07/09/2018 did not show any evidence of lym phadenopathy; it did show evidence of previous treatment. He was offered radiation treatmen t and proceed with 5500cGy in 20 fractions over 29 days, from 05/06/2019 to 06/14/2019. He is doing very well, without any evidence of recurrence. He should return to dermatology for close skin surveillance given his multiple recurrences. He would like to transfer his c are to a license examiner in [place]. He will be referred. Plan His questions and concerns were answer to his satisfaction. He understands the plan of care as outlined below and agrees. 1. Refer patient to license examiner in [place]. Nursing agrees to look at his insurance to find a good fit. Patient should be seen within the next couple months for close surveillance . 2. Return to see us only as needed. 3. Patient and his were encouraged to call us with any questions or concerns. Thank you for allowing me to participate in the care of Guilherme Jorge. If you should h ave any questions regarding this evaluation, please do not hesitate to contact me. EMILY Hernández, AOCNP Department of Radiation Oncology [facility] Office: [phone] documented in this encounter Plan of Treatment [...] [place] | | | | | | [address] | | | | | | | | +--------+ + + + + documented as of this encounter Visit Diagnoses + + | Diagnosis | + + | Recurrent basal cell carcinoma - Primary Basal cell carcinoma of skin, site | | unspecified | + + documented in this encounter
--- OUTSIDE RECORDS SUMMARY | ~2020-03-03 | XMS | Encounter Summary ---
Demographics + + + | Address | [address] | | | [place] [address] | + + + | Home Phone [...] [place] | | | | | [address] | | + + + + + Care Team Providers + +------+ + | Care Marbleizing Machine Tender Name | Role | Phone [...] | | | | | ischemic | [address] | | | | | | left MCA | [address] | | | | | | stroke | [address] | | | | | | Stenosis of | [place], [place] | | | | | | left | [address] | | | | | | internal | Phone: | | | | | | carotid | [phone] | | | | | | artery | Fax: | | | | | | Procedures | [phone] | | | | | | CONSULT [...] [address] | | | | | left REGIONAL PROPERTY MANAGER | [address] | [address] | | | | | stroke (HCC) | [address]donado | Joel | | | | | Procedures | [place], [place] | [place], [place] | | | | | CONSULT TO | [address] | [address] | | | | | NEUROLOGY | Phone: | Phone: | | | | | | [phone] | [phone] | | | | | | Fax: | Fax: | | | | | | [phone] | [phone] | +--------+--------+ + + + + Encounter Details +--------+---------+ + + + | Date | Type | Department | Care Team | Description | +--------+---------+ + + + | 11/09/ | Office | [facility] | Deion Sommer, | History of ischemic | | 2019 | Visit | [facility] | [address] | left MCA stroke | | | | [facility] | [address] | (Primary Dx); | | | | [address] | [place], [place] | Stenosis of left | | | | [address] [facility] | [address] | internal carotid | | | | [facility], | [phone] | artery | | | | floor [place], [place] | | | | | | [address] | | | | | | [phone] | | | +--------+---------+ + + + [...] seeing you today. Please send me a MyCBookacoacht Message if you have any questions or concerns. Deion Sommer MD Vascular Neurology [facility] Department of Neurology [facility] and [address] [place] [address] documented in this encounter Progress Notes Deion [...] a transfer on 10/06/2018 for a left MCA/REGIONAL PROPERTY MANAGER te rritory stroke related to left carotid artery stenosis. Initially presented to the Emergency Department in [place], [place] after waking the AM of with right upper extremity weakness, dysarthria, and aphasia. Discharged home [facility] returned on 10/05/2018 with progressive symptoms. CTA with severe left internal carotid artery stenosis just distal to the bifurcation and left variant REGIONAL PROPERTY MANAGER. MRI demonstrate d left parietal/occipital ischemic strokes [...] EXAM: MENTAL STATUS Alert, oriented to person, , November 07()2018, 330pm(130pm), [place], no neglect , no aphasia, following commands [...] level mild right ICA stenosis variant left REGIONAL PROPERTY MANAGER MRI BRAIN left MCA, REGIONAL PROPERTY MANAGER, and left hemispheric watershed ischemic strokes OTHER [...] for comparison. Assessment: Recurrent left MCA and REGIONAL PROPERTY MANAGER ischemic strokes. Etiology LICA stenosis. Suspect stenosis [...] carotid duplex ultrasound to be completed in [place]. Return to driving would require formal visual field assessment and formal driving safety ev aluation by occupational therapy. Urology outpatient evaluation for hematuria surrounding hospitalization not completed and w ill be pursued via external referral in [place]. Plan: continue aspirin 325mg for LIFE continue atorvastatin 40mg daily lipid panel today secondary stroke prevention goals for primary care LDL < 70, HbA1c < 7.0, SBP < 140 external referral for carotid duplex US - [place] external referral for Urology evaluation - [place] NO DRIVING - requires formal VF evaluation + OT driving evaluation tobacco cessation with primary care follow-up visit in 6 months I spent 33 minutes with the patient. Greater than 50% of the time was spent counseling the patient regarding left MCA/REGIONAL PROPERTY MANAGER ischemic stroke and left internal carotid stenosis. [...] + + + + + | [facility] | [address] | [place] [address] | | | SERVICES, CORE | OSCAR [...]
--- OUTSIDE RECORDS SUMMARY | ~2020-03-03 | XMS | Encounter Summary ---
Demographics + + + | Address | [address] | | | [place] [address] | + + + | Home Phone | | + + + | Preferred Language | Unknown | + + + | Marital Status | | + + + | Temple Affiliation | Unknown | + + + | Race | White | + + + | Ethnic Group | Not or | + + + Author + + + | Author | [facility] | | | and [place] | + + + | Organization | [facility] | | [...] [place], [place] | | | | | [address] | | + + + + + | Isabella "Tiki" | ECON | [address] | | | [place] | | [place], [place] | | | | | [address] | | + + + + + Care Team Providers + +------+ + | Care Continuous Washer Operator Name | Role | Phone | [...] + + | 09/29/ | Telephone | [facility] | Ashu Singh, DO | Other | | 2018 | | MED CTR RADIATION | [address] [facility] | | | | | ONCOLOGY CLINIC [address] | [place] | | | | | [address] | [id number] | | | | | [place] [address] | | | | | | [phone] | | | +--------+ + + + [...] at th is time. elephone Encounter - Anu Huffman - 09/29/2018 12:19 PM PDTPlease call daughter Tiki @ . MEDICATIONS Tdocumented in this encounter [...] [place] | | | | | | [id number] | | | | | | | | +--------+ + + + + documented as of this encounter Visit Diagnoses Not on filedocumented in this encounter
--- OUTSIDE RECORDS SUMMARY | ~2020-03-03 | XMS | Encounter Summary ---
Demographics + + + | Address | [address] | | | [place] [address] | + + + | Home Phone [...] [place], [place] | | | | | [address] | | + + + + + | Isabella "Tiki" | ECON | [address] | | | [place] | | [place], [place] | | | | | [address] | | + + + + + Care Team Providers + +------+ + | Care Quilting Machine Operator Name | Role | Phone [...] + + | 06/07/ | Hospital | [facility] | Carly Jaime | Basal cell carcinoma | | 2019 | Encounter | MED CTR RADIATION | MD Paulette [address] | (BCC) of skin of | | | | ONCOLOGY CLINIC [address] | [place], [place] | neck (Primary Dx) | | | | [address] [facility] | [address] | | | | | [place] [address] | | | | | | [phone] | | | +--------+ + + + [...] | 2019 | | | [address] | | | | | | [place] | | | | | | [address] | | | | | | | | +--------+ + + + + documented as of this encounter Visit Diagnoses + + | Diagnosis | + + | Basal cell carcinoma (BCC) of skin of neck - Primary | + + documented in this encounter
--- OUTSIDE RECORDS SUMMARY | ~2020-03-03 | XMS | Encounter Summary ---
Demographics + + + | Address | [address] | | | [place] [address] | + + + | Home Phone [...] [place], [place] | | | | | [address] | | + + + + + | Isabella "Tiki" | ECON | [address] | | | [place] | | [place], [place] | | | | | [address] | | + + + + + Care Team Providers + +------+ + | Care Milk Pickup Truck Driver Name | Role | Phone [...] | Recurrent | Carly M, | [address] [place] | | | | | basal cell | MD [address] | [place], | | | | | carcinoma | [address] | [place] [address] | | | | | Procedures | [place], | Phone: | | | | | CT Treatment | [place] [address] | [phone] | | | | | Plan | Phone: | Fax: | | | | | Complex | [phone] | [phone] | | | | | | Fax: | | | | | | | [phone] | | +--------+--------+ + + + + Reason for Visit Diagnostic/Screening (Routine) +--------+--------+ + + + + | Status | Reason | Specialty | Diagnoses / | Referred By | Referred To | | | | | Procedures | Contact | Contact | +--------+--------+ + + + + | Closed | | Radiology | Diagnoses | Yeni, | [address] | | | | | Recurrent | Carly M, | [address] [place] | | | | | basal cell | MD [address] | [place], | | | | | carcinoma | [address] | [facility] | | | | | Procedures | [place], | Phone: | | | | | CT Treatment | [facility] | [phone] | | | | | Plan | Phone: | Fax: | | | | | Complex | [phone] | [phone] | | | | | | Fax: | | | | | | | [phone] | | +--------+--------+ + + + + Encounter Details +--------+ + + + + | Date | Type | Department | Care Team | Description | +--------+ + + + + | 05/09/ | Hospital | [facility] | Carly Jaime | Recurrent basal cell | | 2019 | Encounter | MED CTR CT [address] | M, MD [address] | carcinoma | | | | [place], | [place], [place] | | | | | [place] [address] | [address] | | | | | [phone] | | | +--------+ + + + [...] [place] | | | | | | [address] | | | | | | | | +--------+ + + + + documented as of this encounter Procedures + +--------+ + + + | Procedure Name | Priori | Date/Time | Associated Diagnosis | Comments | | | ty | | | | + +--------+ + + + | CT TREATMENT PLAN | Routin | 05/09/2019 | Recurrent basal | Results for this | | COMPLEX | e | 1:18 PM | cell carcinoma | procedure are in the | | [...]
--- OUTSIDE RECORDS SUMMARY | ~2020-03-03 | XMS | Encounter Summary ---
Demographics + + + | Address | [address] | | | [place] [address] | + + + | Home Phone [...] Author | [facility] | | | and [place] | + + + | Organization | [facility] | | | and [...] [place], [place] | | | | | [address] | | + + + + + | Isabella "Tiki" | ECON | [address] | | | [place] | | [place], [place] | | | | | [address] | | + + + + + Care Team Providers + +------+ + | Care Business Management Associate Name | Role | Phone | + [...] | Recurrent | Carly M, | [address] [place] | | | | | basal cell | MD [address] | [place], | | | | | carcinoma | [address] | [place] [address] | | | | | Procedures | [place], | Phone: | | | | | CT Treatment | [place] [address] | [phone] | | | | | Plan | Phone: | Fax: | | | | | Complex | [phone] | [phone] | | | | | | Fax: | | | | | | | [phone] | | +--------+--------+ + + + + [...] | Recurrent | Carly M, | [address] [place] | | | | | basal cell | MD [address] | [place], | | | | | carcinoma | [address] | [facility] | | | | | Procedures | [place], | Phone: | | | | | CT Treatment | [facility] | [phone] | | | | | Plan | Phone: | Fax: | | | | | Complex | [phone] | [phone] | | | | | | Fax: | | | | | | | [phone] | | +--------+--------+ + + + + Encounter Details +--------+ + + + + | Date | Type | Department | Care Team | Description | +--------+ + + + + | 05/09/ | Hospital | [facility] | Carly Jaime | Recurrent basal cell | | 2019 | Encounter | MED CTR CT [address] | M, MD [address] | carcinoma | | | | [place], | [place], [place] | | | | | [place] [address] | [address] | | | | | [phone] | | | +--------+ + + + [...] [place] | | | | | | [address] | | | | | | | [...]
--- OUTSIDE RECORDS SUMMARY | ~2020-03-03 | XMS | Encounter Summary ---
Demographics + + + | Address | [address] | | | [place] [address] | + + + | Home Phone [...] [place] | | | | | [address] | | + + + + + Care Team Providers + +------+ + | Care Line Controller Name | Role | Phone | + [...] | Only | [address] | [phone] | | | | | [place] | | | | | | [address] | | | | | | [phone] | | | +--------+ + + + [...] | | | | | | slide, [id number] returned | | | | | | [...] | + + + + + | [facility] DEPARTMENT | [address] | [place] [address] | | | PATHOLOGY | [address] | | | + + + + + | [facility] DEPARTMENT OF | [address] | [place] [address] | | | PATHOLOGY | [address] [...] S# | | | | | | [id number] returned to | | | | | [...] | + + + + + | [facility] | [facility] | [place] [address] | | | PATHOLOGY | [address] | | | + + + + + | [facility] | [facility] | [place] [address] | | | PATHOLOGY | [address] | | | + + + + + documented in this encounter Visit Diagnoses Not on filedocumented in this encounter"
--- OUTSIDE RECORDS SUMMARY | ~2020-03-03 | XMS | Encounter Summary ---
Demographics + + + | Address | [address] | | | [place] [address] | + + + | Home Phone | | + + + | Preferred Language | Unknown | + + + | Marital Status | | + + + | Methodist Affiliation | NRP | + + + | Race | White | + + + | Ethnic Group | Not or | + + + Author + + + | Author | [facility] | + + + | Organization | [facility] | + + + | Address | Unknown | + + + | Phone | Unavailable | + + + Support + + + + + | Name | Relationship | Address | Phone | + + + + + | Alanna Merino | [address] | [address] | | | | | [address] | | | | | [address] | | + + + + + Care Team Providers + +------+ + | Care Forge Helper Name | Role | Phone | [...] | | | | [place] [address] | | | | | | [phone] | | | | | | | [...]
--- OUTSIDE RECORDS SUMMARY | ~2020-03-03 | XMS | Encounter Summary ---
Demographics + + + | Address | [address] | | | [place] [address] | + + + | Home Phone | | + + + | Preferred Language | Unknown | + + + | Marital Status | | + + + | Gnosticist Affiliation | NRP | + + + [...] [place] | | | | | [address] | | + + + + + Care Team Providers + +------+ + | Care Head Start Teacher Name | Role | Phone | [...] as of this encounter Progress Notes Interface, Structural Metal Fabricator Apprentice In - 02/01/2006 1:02 AM PDT June 14, 2002 Dr. Tony CHANEY 6 Dermatology Re: Guilherme Merino [id number] Jimenez, Thank you for referring Guilherme Levineen regarding the recurrent sclerosing type basal cell [...]
--- OUTSIDE RECORDS SUMMARY | ~2020-03-03 | XMS | Encounter Summary ---
Demographics + + + | Address | [address] | | | [place] [address] | + + + | Home Phone [...] Author | [facility] | | | and [place] | + + + | Organization | [facility] | | [...] [place], [place] | | | | | [address] | | + + + + + | Isabella "Tiki" | ECON | [address] | | | [place] | | [place], [place] | | | | | [address] | | + + + + + Care Team Providers + +------+ + | Care Tank Welder Name | Role | Phone | [...] + + | 09/14/ | Hospital | [facility] | Ashu Singh DO | Recurrent basal cell | | 2019 | Encounter | MED CTR RADIATION | [address] | carcinoma (Primary | | | | [facility]OGY CLINIC [address] | [place] | Dx) | | | | [address] | [address] | | | | | [place] [address] | | | | | | [phone] | | | +--------+ + + + [...] 3 Pain Quality: Stable Current pain regimen: Austin 5/325 2 tabs 3 times a day [...] tolerating this well with no significant pruritus. Austin has been titrated to 2 tabs 3 [...] | | | | | [place] | | | | | | [address] | | | | | | | | +--------+ + + + + documented as of this encounter Visit Diagnoses + + | Diagnosis | + + | Recurrent basal cell carcinoma - Primary Basal cell carcinoma of skin, site | | unspecified | + + documented in this encounter
--- OUTSIDE RECORDS SUMMARY | ~2020-03-03 | XMS | Encounter Summary ---
Demographics + + + | Address | [address] | | | [place] [address] | + + + | Home Phone | | + + + | Preferred Language | Unknown | + + + | Marital Status | | + + + | Buddhist Affiliation | Unknown | + + + | Race | White | + + + | Ethnic Group | Not or | + + + Author + + + | Author | [facility] | | | and [place] | + + + | Organization | [facility] | | | [...] [place], [place] | | | | | [address] | | + + + + + | Isabella "Tiki" | ECON | [address] | | | [place] | | [place], [place] | | | | | [address] | | + + + + + Care Team Providers + +------+ + | Care Media Marketing Manager Name | Role | Phone | [...] + + | 10/13/ | Telephone | [facility] | Ashu Singh, DO | Other | | 2019 | | MED CTR MEDICAL | [address] [facility] | | | | | ONCOLOGY CLINIC [address] | [place] | | | | | [address] | [address] | | | | | [place] [address] | | | | | | [phone] | | | +--------+ + + + [...] in would care by the staff at [facility], but healing is sl ow due to the blood thinners he is on. She is wanting to reschedule his appointment with beckford as he missed his appointment due to being at [facility]. I gave her Dr. Ly's phone number so she could call directly to reschedule. elephone Encounter - Cody Sharif - 10/13/2018 10:09 AM PDT Alanna called, per previous note pt was sent to [facility] a bit ago, they put a stint in pt on M onday and he is home now, but they would like his neck. The wound spec looked at and they a re keeping it clean. They also need the appointment with the toe stripper rescheduled, and she thinks that he could handle some travel by the end of next week or early the week after. [phone] documented i n this encounter Plan of [...] [place] | | | | | | [id number] | | | | | | | | +--------+ + + + + documented as of this encounter Visit Diagnoses Not on filedocumented in this encounter
--- OUTSIDE RECORDS SUMMARY | ~2020-03-03 | XMS | Encounter Summary ---
Demographics + + + | Address | [address] | | | [place] [address] | + + + | Home Phone [...] Author | [facility] | + + + | Organization | [facility] | + + + | Address | Unknown | + + + | Phone | Unavailable | + + + Support + + + + + | Name | Relationship | Address | Phone | + + + + + | Alanna Merino | DAT | [address] | | | | | [address] | | | | | [address] | | + + + + + Care Team Providers + +------+ + | Care Parachute Folder Name | Role | Phone | + [...] | 2009 | Visit | Medical at [facility] [address] | MD [address] | Unspecified Nature, | | | | [address] | [facility] [place] | Site Unspecified | | | | for Health and | [address] | (Primary Dx) | | | | [facility], Building 1, | [phone] | | | | | 16th Floor | | | | | | [place], [place] | | | | | | [address] | | | | | | [phone] | | | +--------+---------+ + + + [...] = all BCC. Call & send to [facility] ally signed by Hanna Jimenez MD at 11/12/2008 4:44 AM Hanna Cruz MD - 11/08/19 09 3:30 PM PDTPrior [...] this encounter. HANNA JIMENEZ MD MEDICAL DERMATOLOGY [address] Mail Code: [address] [place] [address] [address] Mason [...] l neck lesion REFERRING PHYSICIAN: Dr. Mason ([place]) HISTORY OF PRESENT ILLNESS: Guilherme Merino is [...] skin lesions Meds and Allegies listed in [facility] The patient intake was reviewed including medications, [...] procedure, patient identity, procedure and sites were verifie d. All equipment required was ready and available. [...] Cristobal Luna MD Resident, Department of Dermatology Formerly [facility], [facility] & [facility] documented in this e ncounter Miscellaneous Notes Scan - Other, Faculty - 12/24/2008 7:58 AM PDT can - Other, F aculty - 12/01/2008 3:46 AM PDT can - Other, F aculty - 10/24/2008 12:00 AM PDTAssociated Order(s): PATHOLOGY can - Other, Faculty - 08/13/2008 12:00 AM PSTAssociated Order(s): PATHOLOGY documented in this encou nter Plan of Treatment + + +--------+ + + | Name | Type | Priori | Associated Diagnoses | Order Schedule | | | | ty | | | + + +--------+ + + | DE BIOPSY OF SKIN | Procedures | Routin | Neoplasm of | Ordered: 11/07/2008 | | LESION | | e | Unspecified Nature, | | | | | | Site Unspecified | | + + +--------+ + + | DE BIOPSY, EACH | Procedures | Routin | Neoplasm of | Ordered: 11/07/2008 | | ADDED LESION | | e | Unspecified Nature, | | | | | | Site Unspecified | | + + +--------+ + + | DE BIOPSY, EACH | Procedures | Routin | [...] | + + | Deja Pastor - 10/24/2008 12:00 AM PDT | | [...]
--- OUTSIDE RECORDS SUMMARY | ~2020-03-03 | XMS | Encounter Summary ---
Demographics + + + | Address | [address] | | | [place] [address] | + + + | Home Phone [...] [place], [place] | | | | | [address] | | + + + + + | Isabella "Tiki" | ECON | [address] | | | [place] | | [place], [place] | | | | | [address] | | + + + + + Care Team Providers + +------+ + | Care Bass Singer Name | Role | Phone | + [...] + + + + | 05/30/ | [facility] | [facility] | Carly Jaime | Basal cell carcinoma | | 2019 | Encounter | MED CTR RADIATION | MD Paulette [address] | (BCC) of skin of | | | | ONCOLOGY CLINIC [address] | [place], [place] | neck (Primary Dx) | | | | [facility] | [address] | | | | | [place] [address] | | | | | | [phone] | | | +--------+ + + + [...] [place] | | | | | | [address] | | | | | | | | +--------+ + + + + documented as of this encounter Visit Diagnoses + + | Diagnosis | + + | Basal cell carcinoma (BCC) of skin of neck - Primary | + + documented in this encounter
--- OUTSIDE RECORDS SUMMARY | ~2020-03-03 | XMS | Encounter Summary ---
Demographics + + + | Address | [address] | | | [place] [address] | + + + | Home Phone | | + + + | Preferred Language | Unknown | + + + | Marital Status | | + + + | Rastafari Affiliation | Unknown | + + + [...] [place], [place] | | | | | [address] | | + + + + + | Isabella "Tiki" | ECON | [address] | | | [place] | | [place], [place] | | | | | [address] | | + + + + + Care Team Providers + +------+ + | Care Operations Administrator Name | Role | Phone | [...] + + | 09/14/ | Hospital | [facility] | Ashu Singh DO | Recurrent basal cell | | 2019 | Encounter | MED CTR RADIATION | [address] | carcinoma (Primary | | | | ONCOLOGY CLINIC [address] | [place] | Dx) | | | | [address] | [address] | | | | | [place] [address] | | | | | | [phone] | | | +--------+ + + + [...] 3 Pain Quality: Stable Current pain regimen: Jack 5/325 2 tabs 3 times a day [...] tolerating this well with no significant pruritus. Jack has been titrated to 2 tabs 3 [...] | | | | | [place] | | | | | | [address] | | | | | | | | +--------+ + + + + documented as of this encounter Visit Diagnoses + + | Diagnosis | + + | Recurrent basal cell carcinoma - Primary Basal cell carcinoma of skin, site | | unspecified | + + documented in this encounter
--- OUTSIDE RECORDS SUMMARY | ~2020-03-03 | XMS | Encounter Summary ---
Demographics + + + | Address | [address] | | | [place] [address] | + + + | Home Phone | | + + + | Preferred Language | Unknown | + + + | Marital Status | | + + + | Jainism Affiliation | Unknown | + + + | Race | White | + + + | Ethnic Group | Not or | + + + Author + + + | Author | [facility] | | | and [place] | + + + | Organization | [facility] | | [...] [place], [place] | | | | | [address] | | + + + + + | Isabella "Tiki" | ECON | [address] | | | [place] | | [place], [place] | | | | | [address] | | + + + + + Care Team Providers + +------+ + | Care Electrical Accessories I Assembler Name | Role | Phone | + +------+ + PCP | Unavailable | + +------+ + Encounter Details +--------+ + + + + | Date | Type | Department | Care Team | Description | +--------+ + + + + | 10/16/ | Hospital | [facility] | Otis Grider, | | | 2006 | Encounter | MED CTR SLEEP | [address] | | | | | [place] [address] | [place], [place] | | | | | [place] | [address] | | | | | [address] | | | | | | [phone] | | | +--------+ + + + [...] [place] | | | | | | [address] | | | | | | | | +--------+ + + + + documented as of this encounter Visit Diagnoses Not on filedocumented in this encounter
--- OUTSIDE RECORDS SUMMARY | ~2020-03-03 | XMS | Encounter Summary ---
Demographics + + + | Address | [address] | | | [place] [address] | + + + | Home Phone [...] [place], [place] | | | | | [address] | | + + + + + | Isabella "Tiki" | ECON | [address] | | | [place] | | [place], [place] | | | | | [address] | | + + + + + Care Team Providers + +------+ + | Care Mud Car Worker Name | Role | Phone | [...] + | 01/15/ | Telephone | [facility] | Radhames Rdz | Results | | 2019 | | [address] | [address] | | | | | [place] | [place] | | | | | [address] | [place] [address] | | | | | [phone] | [phone] | | | | | | | [...] [place] | | | | | | [address] | | | | | | | | +--------+ + + + + documented as of this encounter Visit Diagnoses Not on filedocumented in this encounter
--- OUTSIDE RECORDS SUMMARY | ~2020-03-03 | XMS | Encounter Summary ---
Demographics + + + | Address | [address] | | | [place] [address] | + + + | Home Phone [...] [place], [place] | | | | | [address] | | + + + + + | Isabella "Tiki" | ECON | [address] | | | [place] | | [place], [place] | | | | | [address] | | + + + + + Care Team Providers + +------+ + | Care Metal Spray Operator Name | Role | Phone | + +------+ + | No, Physician | PCP | Unavailable | + +------+ + Encounter Details +--------+ + + + + | Date | Type | Department | Care Team | Description | +--------+ + + + + | 11/15/ | Hospital | [facility] | Deion Sommer, | History of ischemic | | 2019 | Encounter | MED CTR ULTRASOUND | [address] | left MCA stroke; | | | | [address] [place] | [address] | Stenosis of left | | | | [place], [place] | [place], [place] | carotid artery | | | | [address] | [address] | | | | | [phone] | | | | | | | [...] [place] | | | | | | [place] | | | | | | [address] | | | | | | | [...] without hemodynamically significant stenosis. | | | Snsv-ay-soqyjafq calcified plaque is seen involving the left [...] the right carotid bulb and proximal ICA fajcvobhe49-58% without hemodynamically | | significant stenosis.Xkpw-lh-lprjydqi calcified plaque is seen involving the left [...] without hemodynamically significant stenosis. | | | |Jehz-pb-egmcmfhu calcified plaque is seen involving the left [...]
--- OUTSIDE RECORDS SUMMARY | ~2020-03-03 | XMS | Encounter Summary ---
Demographics + + + | Address | [address] | | | [place] [address] | + + + | Home Phone | | + + + | Preferred Language | Unknown | + + + | Marital Status | | + + + | Church Affiliation | NRP | + + + | Race | White | + + + | Ethnic Group | Not or | + + + Author + + + | Author | [facility] | + + + | Organization | [facility] | + + + | Address | Unknown | + + + | Phone | Unavailable | + + + Support + + + + + | Name | Relationship | Address | Phone | + + + + + | Alanna Merino | DAT | [address] | | | | | [address] | | | | | [address] | | + + + + + Care Team Providers + +------+ + | Care Bridge Gang Worker Name | Role | Phone | [...] as of this encounter Progress Notes Interface, Male Model In - 02/01/2006 1:02 AM PDT June [...]
--- OUTSIDE RECORDS SUMMARY | ~2020-03-03 | XMS | Encounter Summary ---
Demographics + + + | Address | [address] | | | [place] [address] | + + + | Home Phone | | + + + | Preferred Language | Unknown | + + + | Marital Status | | + + + | Yarsanism Affiliation | Unknown | + + + | Race | White | + + + | Ethnic Group | Not or | + + + Author + + + | Author | [facility] | | | and [place] | + + + | Organization | [facility] | | | [...] [place], [place] | | | | | [address] | | + + + + + | Isabella "Tiki" | ECON | [address] | | | [place] | | [place], [place] | | | | | [address] | | + + + + + Care Team Providers + +------+ + | Care Business Services Tech Name | Role | Phone | + +------+ + | No, Physician | PCP | Unavailable | + +------+ + Reason for Visit +--------+--------+ + | Reason | Onset | Comments | | | Date | | +--------+--------+ + | Other | 01/17/ | | | | 2018 | | +--------+--------+ + Encounter Details +--------+ + + + + | Date | Type | Department | Care Team | Description | +--------+ + + + + | 01/17/ | Telephone | [facility] | Ashu Singh DO | Other | | 2019 | | MED CTR MEDICAL | [address] [facility] | | | | | ONCOLOGY CLINIC [address] | [place] | | | | | [address] | [address] | | | | | [place] [address] | | | | | | [phone] | | | +--------+ + + + [...] Telephone Encounter - Danielle Robb RN - 01/22/2019 1:59 PM PDTPatient was unable to ma [facility] prior appointment due to other health problems, but referral has been reentered as he agrees at last appointment to follow up with dermatology, Scheduling: please ensure this appointment is scheduled. P M PDTTelephone Encounter - Samina Mosqueda - 01/17/2019 3:31 PM PDTI found this note in our WQ and I don't see where it was ever brought to Dr. Singh's attention. Please note below and advise. Thanks Connie from [facility] called stating that they had Guilherme scheduled 10/09/18 but he canceled and did not want to reschedule. P DTdocumented in this encounter Plan of Treatment +--------+ [...] [place] | | | | | | [id number] | | | | | | | | +--------+ + + + + documented as of this encounter Visit Diagnoses Not on filedocumented in this encounter
--- OUTSIDE RECORDS SUMMARY | ~2020-03-03 | XMS | Encounter Summary ---
Demographics + + + | Address | [address] | | | [place] [address] | + + + | Home Phone | | + + + | Preferred Language | Unknown | + + + | Marital Status | | + + + | Congregational Affiliation | NRP | + + + | Race | White | + + + | Ethnic Group | Not or | + + + Author + + + | Author | [facility] | + + + | Organization | [facility] | + + + | Address | Unknown | + + + | Phone | Unavailable | + + + Support + + + + + | Name | Relationship | Address | Phone | + + + + + | Alanna Merino | DAT | [address] | | | | | [address] | | | | | [address] | | + + + + + Care Team Providers + +------+ + | Care Pocket Marker Name | Role | Phone | + +------+ + | No Pcp Per Patient | PCP | Unavailable | + +------+ + Reason for Visit + +--------+ + | Reason | Onset | Comments | | | Date | | + +--------+ + | Medication Questions | 10/16/ | | | | 2019 | | + +--------+ + Encounter Details +--------+ + + + + | Date | Type | Department | Care Team | Description | +--------+ + + + + | 10/16/ | Telephone | [facility] | Deion Sommer, | Medication Questions | | 2019 | | Interventional | [address] | | | | | [facility] | [address] | | | | | [address] | [place], [place] | | | | | Giselle Maldonado [facility] | [address] | | | | | [facility], | [phone] | | | | | [place] [address] | | | | | | [phone] | | | +--------+ + + + [...] this encounter Miscellaneous Notes Telephone Encounter - Deion Sommer MD - 10/16/2018 3:10 PM PDTReturned call to [facility]. They had received prescriptions for aspirin 81mg and atorvastatin 40mg. Clar ified that patient should be taking aspirin 325mg daily and atorvastatin 40mg. Confirmed th at a 1 month prescription for Plavix had been received by the patient. Deion Sommer MD documented in this e ncounter Plan of Treatment Not on filedocumented as of this encounter Visit Diagnoses Not on filedocumented in this encounter"
--- OUTSIDE RECORDS SUMMARY | ~2020-03-03 | XMS | Encounter Summary ---
Demographics + + + | Address | [address] | | | [place] [address] | + + + | Home Phone [...] [place], [place] | | | | | [address] | | + + + + + | Isabella "Tiki" | ECON | [address] | | | [place] | | [place], [place] | | | | | [address] | | + + + + + Care Team Providers + +------+ + | Care Mother Tester Name | Role | Phone | [...] + + | 05/30/ | Refill | [facility] | Carly Jaime | Medication Refill | | 2018 | | MED CTR RADIATION | MD [address] | | | | | ONCOLOGY CLINIC [address] | [place], [place] | | | | | [facility] | [address] | | | | | [place] [address] | | | | | | [phone] | | | +--------+--------+ + + + [...] [place] | | | | | | [address] | | | | | | | | +--------+ + + + + documented as of this encounter Visit Diagnoses + + | Diagnosis | + + | Basal cell carcinoma (BCC) of skin of neck | + + documented in this encounter
--- OUTSIDE RECORDS SUMMARY | ~2020-03-03 | XMS | Encounter Summary ---
Demographics + + + | Address | [address] | | | [place] [address] | + + + | Home Phone [...] [place], [place] | | | | | [address] | | + + + + + | Isabella "Tiki" | ECON | [address] | | | [place] | | [place], [place] | | | | | [address] | | + + + + + Care Team Providers + +------+ + | Care Improvement Advisor Name | Role | Phone | [...] | | | | | | [place] [address] | [place], [place] | | | | | | Phone: | [address] | | | | | | [phone] | Phone: | | | | | | Fax: | [phone] | | | | | | [phone] | Fax: | | | | | | | [phone] | +--------+ + + + + + [...] | | | | Procedures | [address] | | | | | [address] | [place], | [place], | | | | | | [place] | [place] [address] | | | | | | [address] | Phone: | | | | | | Phone: | [phone] | | | | | | [phone] | Fax: | | | | | | Fax: | [phone] | | | | | | [phone] | | +--------+--------+ + + + + Encounter Details +--------+ + + + + | Date | Type | Department | Care Team | Description | +--------+ + + + + | 01/08/ | Hospital | [facility] | Ashu Singh DO | Recurrent basal cell | | 2019 | Encounter | MED CTR RADIATION | [address] | carcinoma (Primary | | | | ONCOLOGY CLINIC [address] | [place] | Dx); Malignant | | | | [address] [place] | [address] | neoplasm of skin | | | | [place] [address] | | | | | | [phone] | | | +--------+ + + + [...] He is a pleasant 63-year-old gentleman from [facility] who has a long-standing history of basal cell carcinoma involving his left neck. He has extensive sun exposure while working in the [employer] being first diagnosed with a left n jai basal cell carcinoma in 1997 that was described as superficial. 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 He returned again in 2008 to [...] ICA stent placed October 09, 2018 at [facility]. He has been followed by Dr. Deion Sommer at the [place] [facility] in [place], [place] for further management having last been [...] Recommendation/Plan: 1. Recurrent basal cell carcinoma - [facility] - [facility]B Referral 2. [...] PRATIMA Radiation Oncologist Department of Radiation Oncology [facility] This note was transcribed using [employer] speech recognition software. As a result, there [...] [place] | | | | | | [address] | | | | | | | [...]
--- OUTSIDE RECORDS SUMMARY | ~2020-03-03 | XMS | Encounter Summary ---
Demographics + + + | Address | [address] | | | [place] [address] | + + + | Home Phone [...] [place], [place] | | | | | [address] | | + + + + + | Isabella "Tiki" | ECON | [address] | | | [place] | | [place], [place] | | | | | [address] | | + + + + + Care Team Providers + +------+ + | Care Risk Management Intern Name | Role | Phone | + [...] + + | 05/30/ | Refill | [facility] | Carly Jaime | Medication Refill | | 2018 | | MED CTR RADIATION | MD [address]au[address] | | | | | ONCOLOGY CLINIC [address] | [place], [place] | | | | | [address] [facility] | [address] | | | | | [place] [address] | | | | | | [phone] | | | +--------+--------+ + + + [...] [place] | | | | | | [address] | | | | | | | | +--------+ + + + + documented as of this encounter Visit Diagnoses + + | Diagnosis | + + | Basal cell carcinoma (BCC) of skin of neck | + + documented in this encounter
--- OUTSIDE RECORDS SUMMARY | ~2020-03-03 | XMS | Encounter Summary ---
Demographics + + + | Address | [address] | | | [place] [address] | + + + | Home Phone | | + + + | Preferred Language | Unknown | + + + | Marital Status | | + + + | Rastafarian Affiliation | Unknown | + + + | Race | White | + + + | Ethnic Group | Not or | + + + Author + + + | Author | [facility] | | | and [place] | + + + | Organization | [facility] | | [...] [place], [place] | | | | | [address] | | + + + + + | Isabella "Tiki" | ECON | [address] | | | [place] | | [place], [place] | | | | | [address] | | + + + + + Care Team Providers + +------+ + | Care Pit Manager Name | Role | Phone | + +------+ + PCP | Unavailable | + +------+ + Encounter Details +--------+ + + + + | Date | Type | Department | Care Team | Description | +--------+ + + + + | 10/16/ | Hospital | [facility] | Otis Grider, | | | 2006 | Encounter | MED CTR SLEEP | [address] | | | | | JOSEPH [address] | [place], [place] | | | | | [place] | [address] | | | | | [address] | | | | | | [phone] | | | +--------+ + + + [...] [place] | | | | | | [address] | | | | | | | | +--------+ + + + + documented as of this encounter Visit Diagnoses Not on filedocumented in this encounter
--- OUTSIDE RECORDS SUMMARY | ~2020-03-03 | XMS | Encounter Summary ---
Demographics + + + | Address | [address] | | | [place] [address] | + + + | Home Phone [...] [place], [place] | | | | | [address] | | + + + + + | Isabella "Tiki" | ECON | [address] | | | [place] | | [place], [place] | | | | | [address] | | + + + + + Care Team Providers + +------+ + | Care Drawer In Stitch Bonding Machine Name | Role | Phone | + [...] | | | [facility] [address] | [place], [place] | | | | | [address] [facility] | [address] | | | | | [place] [address] | | | | | | [phone] | | | +--------+ + + + [...]
--- OUTSIDE RECORDS SUMMARY | ~2020-03-03 | XMS | Encounter Summary ---
Demographics + + + | Address | [address] | | | [place] [address] | + + + | Home Phone [...] + + + | Author | [facility] | | | and [place] | + + + | Organization | [facility] [...] [place], [place] | | | | | [address] | | + + + + + | Isabella "Tiki" | ECON | [address] | | | [place] | | [place], [place] | | | | | [address] | | + + + + + Care Team Providers + +------+ + | Care Pocket Stitcher Name | Role | Phone | [...] + + | 10/13/ | Telephone | [facility] | Ashu Singh, DO | Other | | 2019 | | MED CTR MEDICAL | [address] [facility] | | | | | ONCOLOGY CLINIC [address] | [place] | | | | | [address] | [id number] | | | | | [place] [address] | | | | | | [phone] | | | +--------+ + + + [...] in would care by the staff at [facility], but healing is sl ow due to the blood thinners he is on. She is wanting to reschedule his appointment with beckford as he missed his appointment due to being at [facility]. I gave her Dr. Ly's phone number so she could call directly to reschedule. elephone Encounter - Cody Sharif - 10/13/2018 10:09 AM PDT Alanna called, per previous note pt was sent to [facility] a bit ago, they put a stint in pt on M onday and he is home now, but they would like his neck. The wound spec looked at and they a re keeping it clean. They also need the appointment with the retail stock clerk rescheduled, and she thinks that he could handle some travel by the end of next week or early the week after. [phone] documented i n this encounter Plan of [...] [place] | | | | | | [id number] | | | | | | | | +--------+ + + + + documented as of this encounter Visit Diagnoses Not on filedocumented in this encounter
--- OUTSIDE RECORDS SUMMARY | ~2020-03-03 | XMS | Encounter Summary ---
Demographics + + + | Address | [address] | | | [place] [address] | + + + | Home Phone [...] [place], [place] | | | | | [address] | | + + + + + | Isabella "Tiki" | ECON | [address] | | | [place] | | [place], [place] | | | | | [address] | | + + + + + Care Team Providers + +------+ + | Care Java Portal Developer Name | Role | Phone | + +------+ + | No, Physician | PCP | Unavailable | + +------+ + Encounter Details +--------+ + + + + | Date | Type | Department | Care Team | Description | +--------+ + + + + | 06/08/ | Hospital | [facility] | Yeni Carly | | | 2019 | Encounter | MED CTR RADIATION | MD Paulette [address] | | | | | ONCOLOGY [address] | [facility], [place] | | | | | [place], | [address] | | | | | [place] [address] | | | | | | [phone] | | | +--------+ + + + [...] [place] | | | | | | [address] | | | | | | | | +--------+ + + + + documented as of this encounter Visit Diagnoses Not on filedocumented in this encounter
--- OUTSIDE RECORDS SUMMARY | ~2020-03-03 | XMS | Encounter Summary ---
Demographics + + + | Address | [address] | | | [place] [address] | + + + | Home Phone [...] [place], [place] | | | | | [address] | | + + + + + | Isabella "Tiki" | ECON | [address] | | | [place] | | [place], [place] | | | | | [address] | | + + + + + Care Team Providers + +------+ + | Care Human Services Care Specialist Name | Role | Phone | + +------+ + | No, Physician | PCP | Unavailable | + +------+ + Encounter Details +--------+ + + + + | Date | Type | Department | Care Team | Description | +--------+ + + + + | 06/14/ | Hospital | [facility] | Yeni Carly | Recurrent basal cell | | 2019 | Encounter | MED CTR RADIATION | MD Paulette [address] | carcinoma (Primary | | | | ONCOLOGY CLINIC [address] | [place], [place] | Dx) | | | | [facility] | [address] | | | | | [place] [address] | | | | | | [phone] | | | +--------+ + + + [...] and hydrocodone for pain control. Rx for Zenda 5/325 provided Follow-up in 3 months, sooner [...] [place] | | | | | | [id number] | | | | | | | [...]
--- OUTSIDE RECORDS SUMMARY | ~2020-03-03 | XMS | Encounter Summary ---
Demographics + + + | Address | [address] | | | [place] [address] | + + + | Home Phone | | + + + | Preferred Language | Unknown | + + + | Marital Status | | + + + | Yazdanism Affiliation | NRP | + + + | Race | White | + + + | Ethnic Group | Not or | + + + Author + + + | Author | [facility] | + + + | Organization | [facility] | + + + | Address | Unknown | + + + | Phone | Unavailable | + + + Support + + + + + | Name | Relationship | Address | Phone | + + + + + | Alanna Jorge | DAT | [address] | | | | | [address] | | | | | [address] | | + + + + + Care Team Providers + +------+ + | Care Crocodile Farmer Name | Role | Phone | + [...] | | Acute | MD Lisseth | Hermann Coates MD | | | | | ischemic | [address] | [address] | | | | | left MAIL CLERK BILLS | Walker Chaney | Shiv Desai | | | | | stroke (HCC) | Giselle Maldonado | Joel | | | | | Procedures | [place], [place] | [place], [place] | | | | | CONSULT TO | [address] | [address] | | | | | NEUROLOGY | Phone: | Phone: | | | | | | [phone] | [phone] | | | | | | Fax: | Fax: | | | | | | [phone] | [phone] | +--------+--------+ + + + + Speech [...] | | | ischemic | [address] | [facility] | | | | | left MAIL CLERK BILLS | [address] | for Health | | | | | stroke (HCC) | Giselle Maldonado | and Healing, | | | | | Procedures | [place], [place] | [address], | | | | | SPEECH | [address] | 1st Floor | | | | | THERAPY | Phone: | [place], [place] | | | | | REFERRAL | [phone] | [address] | | | | | | Fax: | Phone: | | | | | | [phone] | [phone] | | | | | | | Fax: | | | | | | | [phone] | +--------+--------+ + + + + Occupational [...] | | ischemic | [address] | [facility] | | | | | left MAIL CLERK BILLS | Walker Chaney | for Health | | | | | stroke (HCC) | Giselle Maldonado | and Healing, | | | | | Procedures | [facility] [place] | [address], | | | | | | [address] | 1st Floor | | | | | OCCUPATIONAL | Phone: | [place], [place] | | | | | THERAPY | [phone] | [address] | | | | | REFERRAL | Fax: | Phone: | | | | | | [phone] | [phone] | | | | | | | Fax: | | | | | | | [phone] | +--------+[phone]+ + + + + Physical [...] | ischemic | [address] | [address] | | | | | left MAIL CLERK BILLS | Walker Chaney | for Health | | | | | stroke (HCC) | [address] | and Healing, | | | | | Procedures | [place], [place] | [address], | | | | | PHYSICAL | [address] | 1st Floor | | | | | THERAPY | Phone: | [place], [place] | | | | | REFERRAL | [phone] | [address] | | | | | | Fax: | Phone: | | | | | | [phone] | [phone] | | | | | | | Fax: | | | | | | | [phone] | +--------+--------+ + + + + Reason [...] Hospital | [facility] [address] | Hermann Sommer, | | | 2019 - | Encounter | [address] | [address] | | | | | [id number] | [address] | | | 10/10/ | | [facility] [place], | [place], [place] | | | 2018 | | [place] [address] | [address] | | | | | [phone] | [phone] | | | | | | | [...] distal to the bifurcation, L feta l MAIL CLERK BILLS. MRI demonstrating L parietooccipital ischemia/watershed infarct. He was started on heparin gtt and transferred for consideration of carotid stent vs CEA. Brief Hospital Course: # L MCA/MAIL CLERK BILLS watershed infarct # L ICA stenosis s/p stent 10/09 # L MAIL CLERK BILLS The etiology of patient's stroke was from [...] for Ischemic Stroke For ischemic stroke: Call [phone] to schedule your follow-up appointment in 1 month Outstanding labs/studies: Lab Orders - In Process (Through next 24h) None Follow Up Tests: none Discharging Attending: Ryan Douglas MD Physician Signature: Lisseth Rivas MD Neurology PGY-2 Stroke pager [phone] Associated attestation - Ryan Douglas MD - 10/10/2018 2:51 PM PDT Stroke Service Note I agree with the history, exam and care plan as per the warehouse selector's note and have exami mily the patient myself. Patient doing well from stroke and ABHAY standpoint. Should plan to follow up in 1 month. Can consider [facility] Telehealth clinic for stroke follow up. 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 Ryan Douglas M.D. Occupational Therapist'S Assistant Vascular Neurology documented in this encounter Discharge Instructions Instructions Shirley Chamorro PRINCIPAL ENGINEER - 10/07/2018Formatting of this note might be [...] recovery from National Stroke Association. Visit http://www.st iMedX.org/ or call 6-067-RFHTKNT ( ). ? The [place] Stroke Association Family "Warmline" 6-546-4-STROKE ( ). ? Contact your local stroke [...] CRISIS LINES: -24/01 National Suicide Prevention Lifeline 1-041-047-TALK (2917) Hearing and Speech Impaired 7-045-345-4TTY (6221) http://www.suicidepreventionlifeline.org/ -24/01 Mental Health Treatment Referral Line 6-202-808-HELP (1056) http://www.[facility].gov/treatment/LibbyJASONQs.aspx -Veterans Crisis Line , press 1 Http://www.veteranscrisisline.net/ Information for local mental health crisis line [...] your senior or day center, you r scientologist community, or any other community in which you are a member to ask for support. Remember to be specific in your request i.e I could really use 2 hours every week on sd morning for someone to stay with my [...] service which conn ects the people of [place] and [facility] with the community resources they need. 2 [employer] Home Instead (586.998.7954) This is a MindBodyGreen which can provide in home assistance at a cost to the family. [place] Project [place] OPI is a program which helps seniors 60 and over continue to live independently and safely living in their own home. OPI provides individualized personal care, housekeeping, and case management support. http://www.[place].gov/dhs/spwpd/pages/ltc/inhome.aspx#opi [place] Independent Living Resources: [place] Statement Of Independent Living Resources: Promote the philosophy of Independent L iving by creating opportunities, encouraging choices, advancing equal access, and furthering the level of independence for all people with disabilities. [phone] [place] [facility] (025.349.7379) Services are targeted to people who are not Medicaid eligible. The [facility] Cent[facility] silveira has information about in-home care, how to find the medical equipment you need, how to arrange for home delivered meals, how to apply for Medicaid, and much more. Meals on Wheels (www.mealsonwheelspeople.org) Meals on Wheels are hot, nutritious lunches that are delivered Tuesday through Tuesday betwee n 11 a.m. and 1 p.m. to homebound elderly age 60 and older. Seniors must live in [facility] in [place] or [facility] in [place] to be eligible to receive meal s. Call to request meals at [phone] in [facility] and toll free in [facility] at . Most of the [facility] in [place] have a Meals on Wheels Program, and information on local [facility] lo-gy-wbprzw services can be obtained through local Area Agency on Aging Offices. [place] Vocational Rehabilitation Service (OVRS) ( ) http://www.[place].gov/DHS /vr/Pages/index.aspx [place] Area Agency on Aging http://www.[place].gov/dhs/spwpd/pages/offices.aspx There are 17 Area Agencies on Aging across [place] that administer and support community-bas ed care services. AAAs advocate for older adults living in their area, develop community-based long-term care services to meet the needs of those adults and administer funds to implement services. Most services coordinated by AAAs are provided through community service providers at the local level. This section contains program information designed for staff members of [place]'s AAAs . Aging and Disability Resource Connection of [place] https://adrcoforegon.org/vkobnm-yruoxag-yej-independent-living.php [facility] is a resource directory for [place] families, caregivers and consumers seekin g information about long-term supports and services. Here you will find quick and easy acces s to resources in your community. If you cannot find the information you are looking for or wish to talk to someone in person, please call us toll free at 2-095-BYL-[facility] (6-161-598-213 2) [place] Caregiver Support Line http://www.caregiver.[place].gov/ Toll free : Also check with your private health insurance organization, as respite care may also be inc luded in the coverage. Support Groups for Families Living with Aphasia Individuals and families affected by aphasia face unique challenges. Support specifically d esigned for these people is limited. Three groups have formed in the [place], [place] area t hat provide both the individual experiencing aphasia and family members the opportunity to d evelop a sense of community with others impacted by aphasia. These groups are organized and run by participants. Faculty and students from [facility] s Department of S peech and [...] everyone. There are several groups in the [facility] for individuals and families living wit h aphasia: [facility] [place] Continuous Improvement Group When: Each Tuesday 11:00 12:00 Where: [facility] [address] [place] [address]. Contact: Alfonso Garcia Jennyfer [email or web address] KIMBERLY [place] Speak EZ group When: Odd numbered Saturdays (i.e. July 08) 10:00 12:00 Where: [facility] [address] Contact: Lenin Wiggins [phone] [facility] Aphasia Group When: & Tuesday of each month 10:00 12:00 Where: [facility] Room varies watch for directional signs Contact: Samreen Zenajajarod [phone] [email or web address] The Back[employer] A community music group for stroke survivors. Stroke survivors, spouses, partners, and care givers are invited to join for an hour of playing instruments and singing. Every Tuesday, 11:30-12:30 at the [facility], [address] [place] [address]. Info rmation contact: Carmen Moore, , Brain Injury [place] of [place] http://www.biaoregon.org/ National Stroke Association http://www.stroke.org/ .STROKES (787.6991) National Center on Caregiving/ Family Caregiver [place] www.caregiver.org Established in 2000 as a program of Family Caregiver [place], the National Center on Careg iving (NCC) works to advance the development of high-quality, cost-effective policies and pr ograms for caregivers in every state in the country. Uniting research, public policy and ser vices, the [facility] serves as a central source of information on caregiving and long-term care is sues for policy makers, service providers, media, funders and family caregivers throughout t country. services include: Caregiver Information & Assistance: [...] personal medical concerns. County Crisis Line Information: [facility] Access Crisis Number (days) or (after hours) [facility] Mental Health Program Access or Crisis Number [facility] Access Crisis Number [facility] Access Crisis Number [facility] Mental Health, [facility]. Access Crisis Number or (after hours) [facility] Mental Health Program Access Crisis Number (24 hours) [facility] Mental Health Program Access Crisis Number (after hours) [facility] Mental Health Program Access Crisis Number [facility] Mental Health Services Access Crisis Number (24 hours) or [facility] Health and Radiopharmacist Dept. Access Crisis Number [facility] for Living Branch Office Access Crisis Number 911 [facility] [employer] Access Crisis Number or 911 [facility] Counseling & Guidance Service Access Crisis Number [facility] for [facility] Access Crisis Number [facility] Human Services Access Crisis Number [facility] Mental Health Program Access Crisis Number (24 hours) [facility] Mental Health Programs Access Crisis Number (24 hours) [facility] Access Crisis Number [facility] Services Access Crisis Number [facility] Access Crisis Number (24 hours) [facility] Mental Health Program Access Crisis Number (days) (after hours) [facility] Mental Health Access Crisis Number (days) (after hours) [facility] Access Crisis Number [facility] Access Crisis Number BLACK/ABBOTT Behavioral Health Access Crisis Number 915 [facility] Human Services Access Crisis Number Toll-free at [facility] Mental Health Access Crisis Number (days) (after hours) [facility] Access Crisis Number [facility] Access Crisis Number or [facility] Behavioral Health Access Crisis Number (24 hours) [facility] Access Crisis Number [facility] Access Crisis Number [facility] for Living Access Crisis Number (after hours) [facility] Mental Health Access Crisis Number ABBOTT/BLACK Behavioral Health Access Crisis Number 911 [facility] Mental Health Program Access [...] Care Unit Attending Progress Note Attending Pager #[phone] Hospital admission dx: stroke Days in ICU [...] stenosis just distal to the bifurcation, L MAIL CLERK BILLS present. MRI demonstrating L parietoo ccipital ischemia/watershed [...] Provider Role Specialty Ipt Critical Care Nsicu #[id number] Treatment Team Ipt Mt2 [id number] Treatment Team Ipt Neuro Stroke #[id number] Treatment Team Neurology Code Status Code Status [...] ons/additions as noted. Date of Service: 10/09/2018 [facility] DEPARTMENT: ANE ICU NEURO Place of Service:- Inpatient CSN: [id number] Suggested Modifier: GC - Resident Involved Suggested CPT: TO PRINTING SUPPLIES SALES REPRESENTATIVE Author:ELIANA GRANADOS MD [place] [phone] eber, Hermann Coates MD - 10/09/2018 1:41 PM PDT [facility] INTERVENTIONAL NEURORADIOLOGY Division of the [facility] Attending Physician: Misael Note [...] an appropriate level of pa in control Hermann Sommer MD Interventional Neuroradiology oRyan hirsch MD - 10/09/2018 12:00 PM PDT INPATIENT STROKE PROGRESS NOTE HOSPITAL DAY: 3 I agree with the history, exam, assessment, and care plan outlined in the warehouse selector's n ote and have personally examined the [...] stenosis just distal to the bifurcation, L MAIL CLERK BILLS. MRI demonstrating L pa rietooccipital ischemia/watershed infarct. [...] level mild right ICA stenosis variant left MAIL CLERK BILLS MRI BRAIN left MCA, MAIL CLERK BILLS, and left hemispheric watershed ischemic strokes DIAGNOSTIC [...] exams available for comparison. Assessment: Left MCA, MAIL CLERK BILLS, and left hemispheric watershed strokes on 10/04/2018. [...] 1 month atorvastatin 40mg daily telemetry monitoring AUDITOR IN CHARGE /PT/OT Social Work "stroke protocol" MOCA eval today Ryan Douglas M.D. Occupational Therapist'S Assistant Department of Neurology [facility] Interventional Instittue Lisseth Ferguson MD - 10/09/2018 5:55 AM PDT STROKE PROGRESS NOTE 10/09/2018 ID: Guilherme oJrge is a 63 y.o. RIGHT handed male with HTN, HLD, recurrent skin cancer s/p MOHS surgery and L neck radiation (LKN 10/04) who presented to OSH with RUE weakness and apha julieth. Presented to OSH ED and was sent home. Symptoms worsened over the following day and on 10/05 re-presented to OSH. CTA with severe L ICA stenosis and L MAIL CLERK BILLS present. 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 Facial Paresis (Show teeth, raise [...] Telemetry: NSR Swallow: pass Antithrombotic/anticoagulant: ASA 81 COST REDUCTION ENGINEER PT/OT/AUDITOR IN CHARGE: home with assist Assessment and Plan: 63 yo man with symptomatic L ICA stenosis with MAIL CLERK BILLS transferred for consideration of C EA versus stent. No tPA due to time. Most likely atherosclerotic in etiology. Exam with impr ovement in RUE drift otherwise stable. Given patient has L neck wound and recent radiation therapy to that region, radiation necro sis on differential, however, CT neck 10/06 reviewed with radiology who had low suspicion of i nfiltrative process. # L MCA/MAIL CLERK BILLS watershed infarct # L ICA stenosis s/p stent 10/09 # L MAIL CLERK BILLS For L ICA stenosis, NSGY consulted and [...] Hematuria Started , 10/06. Has been intermittent. [place]-dark red blood observed, no clots. Impro ving [...] Rivas MD Neurology Resident, PGY 2 Pgr [phone] eber, Hermann Coates MD - 10/08/2018 3:36 PM PDT [facility] INTERVENTIONAL NEURORADIOLOGY Division of the [facility] Attending Physician: Hermann Sommer MD Note Date: 10/08/2018 NAME: Guilherme [...] an appropriate level of pa in control. Hermann Sommer MD Interventional Neuroradiology eber, Hermann Coates MD - 10/08/2018 2:20 PM PDT INPATIENT STROKE PROGRESS NOTE 10/08/18 HOSPITAL DAY: 2 I agree with the history, exam, assessment, and care plan outlined in the warehouse selector's n ote and have personally examined the [...] stenosis just distal to the bifurcation, L MAIL CLERK BILLS. MRI demonstrating L pa rietooccipital ischemia/watershed infarct. [...] level mild right ICA stenosis variant left MAIL CLERK BILLS MRI BRAIN left MCA, MAIL CLERK BILLS, and left hemispheric watershed ischemic strokes DIAGNOSTIC [...] exams available for comparison. Assessment: Left MCA, MAIL CLERK BILLS, and left hemispheric watershed strokes on 10/04/2018. [...] with NS IVF at 75cc/hr telemetry monitoring AUDITOR IN CHARGE /PT/OT Social Work "stroke protocol" I spent 38 minutes on this case. More than 50% of time was spent in counseling or coordinat ion of stroke care. Stroke education was provided. This included counseling on stroke warn ing signs/symptoms, when to dial 911, stroke risk factor reduction, stroke medications, and follow-up plan. Hermann Sommer MD Stroke Neurology ee, MD La - 01/2019 12:35 PM PDT STROKE PROGRESS NOTE 10/08/18 Author: LA DE LA CRUZ MD Background: Guilherme Jorge is a 63 [...] stenosis just distal to the bifurcation, L MAIL CLERK BILLS present. MRI demonstr ating L parietooccipital ischemia/watershed infarct. Started on heparin gtt and transferred for consideration of carotid stent vs CEA. Anticipating angiogram 47 AM. Interval Hx: -No acute events -Angio [...] man with symptomatic L ICA stenosis with MAIL CLERK BILLS transferred for consideration of C EA versus [...] #Painless Hematuria Started . Has been intermittent. [place]-dark red blood observed, no clots. UA with is olated red cells. Improving with hydration per patient and . - Bladder scan Q6H, straight cath PRN for PVR >450 - Discussed with urology - unless passing obvious clots, considered as outpatient hematuria workup. Recommended following up UA, bladder scan. If apollo clots observed, can consider at CT urogram. This patient has been staffed with Hermann Sommer MD, attending stroke physician, who agr ees with the above assessment and plan. LA DE LA CRUZ MD Neurology Resident, PGY 3 Pgr [phone] Hermann Sawant MD - 10/08/2018 11:50 AM PDT [facility] INTERVENTIONAL NEURORADIOLOGY Division of the [facility] Note Date: 10/08/2018 Admission Date: 10/06/2018 GUILHERME JORGE, Hospital Day #2 BRIEF PROCEDURE NOTE Preprocedure Consent: reviewed prior to procedure Patient identity confirmed per policy Team Pause: Immediatly prior to the procedure a pause per protocol was called. A pause verifies correct patient, procedure, equipment, shipping support clerk and site/side marked as required if indicated . Attending(s): Ryan Douglas MD Finisher Plate(s): Hermann Sommer MD Preoperative Diagnosis: left MCA stroke [...] Precautions Neuro checks Further care per Stroke Hermann Sommer MD Rosalind Granda - 2018 4:45 PM PDTTransthoracic echocardiogram completed. Final report to follow. La De Leon MD - 10/07/2018 1 0:19 AM PDT STROKE PROGRESS NOTE 10/07/18 Author: LA DE LA CRUZ MD Hospital Day # 1 Background: Guilherme [...] stenosis just distal to the bifurcation, L MAIL CLERK BILLS present. MRI demonstr ating L parietooccipital ischemia/watershed infarct. Started on heparin gtt and transferred for consideration of carotid stent vs CEA. Anticipating angiogram 4 AM. Interval Hx: -Admitted overnight -on heparin [...] man with symptomatic L ICA stenosis with MAIL CLERK BILLS transferred for consideration of C EA versus [...] - f/u Multiple records requests placed: [facility] ([place], [place]), oncology records from [place], [place]. [facility] to fax records to [facility]. #L neck wound s/p radiation for basal cell carcinoma Received "20x" radiation, most recently 10/02. Requested onc records. -Wound care consulted - will need careful cleaning of wound -f/u onc records #Painless Hematuria Started . Has been intermittent. [place]-dark red blood observed, no clots. -UA collected w/ micro -Bladder scan Q6H, straight cath PRN for PVR >450 -Discussed with urology - unless passing obvious clots, considered as outpatient hematuria workup. Recommended following up UA, bladder scan. If apollo clots observed, can consider at CT urogram. This patient has been staffed with Hermann Sommer MD, attending stroke physician, who agr ees with the above assessment and plan. LA DE LA CRUZ MD Neurology Resident, PGY 3 Pgr [phone] eber, Hermann Coates MD - 10/07/2018 7:51 AM PDT INPATIENT STROKE PROGRESS NOTE 10/07/18 HOSPITAL DAY: 1 I agree with the history, exam, assessment, and care plan outlined in the warehouse selector's n ote and have personally examined the [...] stenosis just distal to the bifurcation, L MAIL CLERK BILLS. MRI demonstrating L pa rietooccipital ischemia/watershed infarct. [...] level mild right ICA stenosis variant left MAIL CLERK BILLS MRI BRAIN left MCA, MAIL CLERK BILLS, and left hemispheric watershed ischemic strokes Assessment: Left MCA, MAIL CLERK BILLS, and left hemispheric watershed strokes on 10/04/2018. [...] midnight maintain hydration curbside Urology re hematuria AUDITOR IN CHARGE/PT/OT Social Work "stroke protocol" I spent 72 minutes on this case. More than 50% of time was spent in counseling or coordinat ion of stroke care. Stroke education was provided. This included counseling on stroke warn ing signs/symptoms, when to dial 911, stroke risk factor reduction, stroke medications, and follow-up plan. Hermann Sommer MD Stroke Neurology documented in this e ncounter H&P Notes Shikha Cuenca MD - 10/09/2018 11:29 AM PDTFormatting of this note might be different fro m the original. . Neuroscience Intensive Care Unit Team H&P Note NSICU ASSIGNED #[id number] Days in ICU 3 Days in Hospital Admitting Provider: HERMANN SOMMER Birgit Jorge is a 63 y.o. RIGHT handed [...] stenosis just distal to the bifurcation, L MAIL CLERK BILLS present. MRI demonstrating L parietoo ccipital ischemia/watershed infarct. Started on heparin gtt and transferred for consideratio n of carotid stent vs CEA, now s/p LICA stent on 10/09/2018. Procedural details INTRAOPERATIVE COURSE: LINES, DRAINS & AIRWAY: LINES: non yet, on nicardipine DRAINS: none AIRWAY: easy, not intubated on arrival OR Events: Events or complications: none Cerebral artery clamp time, if applicable: none EBL: 50mL Crystalloid: 1L Blood: 0 units Urine Output: 100mL Active Diagnosis with Assessment & Plan Priority Class POA Nervous * (Principal)Acute ischemic left ICA stroke (HCC) Unknown Current Assessment & Plan SBP <140 PT,OT See Stent placement below stroke protocol Continue telemetry Outpatient stroke follow-up 1 month Head/Neck Carotid stenosis, left Unknown Current Assessment & Plan S/P stent placement 10/09/2018 - ASA 325 indefinitely - 75mg clopidogrel x 30 days. - Atorvastatin 40mg daily - Monitor for bradycardia post stent placement - Monitor groin site - Flat x4 hours - IVF 75mL/hour until taking reliable PO - SBP <140 Cardiovascular Essential hypertension Unknown Current Assessment & Plan Home lisinopril HCTZ combination held on presentation due to watershed ischemia. On Nicar dipine post procedure - Restart lisinopril 10mg - Continue to hold Hydrochlorothiazide - Down titrate nicardipine as able with close watch for hypotension as would not want to hy poperfuse intracranially either. Genitourinary Urinary frequency Unknown Current Assessment & Plan Monitor UOP, may need to consider checking urine sodium. - PVR for retention/incomplete voiding. Skin Malignant neoplasm of skin Yes Overview ICD10 Current Assessment & Plan Being followed by wound care for post-radiation coyle. Wound care recs 10/09: Cleanse wound gently with warm wet gauze. [place] periwound skin with Cavilon skin prep. Appl y SpandGel pad to reddened area (can place SpandGel in the fridge for cool soothing temperat ure). SpandGel can be found on 13A or can be ordered from [employer]. Change PRN dryness. May consider topical Lidocaine gel for pain relief, but do not use SpandGel if using Lidoca ine. Cover Lidocaine gel with Telfa non adherent dressing. Other Hematuria Unknown Current Assessment & Plan Painless, Started , 10/06. Has been intermittent. [place]-dark red blood observed, no clots. UA with isolated red cells. Improving with hydration per patient and . - Bladder scan Q6H, straight cath PRN for PVR >450 - Discussed with urology - unless passing obvious clots, considered as outpatient hematuria workup. Recommended following up UA, bladder scan. If apollo clots observed, can consider at CT urogram. Code Status Code Status Full Code ROS Constitutional: He appears well-developed and well-nourished Neck: Raw erythematous skin of left neck with oozing of both blood and tissue. Cardiovascular: normal rate Pulmonary: effort normal. Abdominal: Abdomen is soft. Skin: Skin is warm and dry. Neck as above. Right groin hematoma stable per INR physician. Petechial ecchymosis surrounding bandage. Ps ychiatric: He has a normal mood and affect. vitals and nursing note reviewed. Negative unless mentioned in HPI or assessment and plan. Physical exam Right visual field deficit, Right arm discoordination without weakness. He has normal la nguage.He is alert He is oriented. Past Medical History: Diagnosis Date Skin Cancer No past surgical history on file. No Known Allergies Social History Social History Marital status: Spouse name: N/A Number of children: N/A Years of education: N/A Occupational History Not on file. Social History Main Topics Smoking status: Current Every Day Smoker Packs/day: 1.00 Types: Cigarettes Smokeless tobacco: Not on file Alcohol use Not on file Drug use: Unknown Sexual activity: Not on file Other Topics Concern Not on file Social History Narrative No narrative on file Prescriptions Prior to Admission Medication Sig Dispense Refill Last Dose Aspirin 81 mg Oral Tablet Take 81 mg by mouth once daily. Taking atorvastatin 20 mg oral tablet Take 20 mg by mouth once daily. cephALEXin (KEFLEX) 500 mg Oral Capsule Take 4 Caps by mouth once. 4 0 gabapentin 300 mg oral capsule Take 900 mg by mouth three times daily. HYDROcodone-acetaminophen 10-325 mg oral tablet Take 1 tablet by mouth every six hours as needed. lisinopril-hydrochlorothiazide 10-12.5 mg oral tablet Take 1 tablet by mouth once daily . PRILOSEC OR Take by mouth. Taking NSICU treatment team members Provider Role Specialty Ipt Critical Care Nsicu #[id number] Treatment Team Ipt Mt2 [id number] Treatment Team Ipt Neuro Stroke #[id number] Treatment Team Neurology Patient Lines/Drains/Airways Status Active Lines, Drains and Airways Name: Placement date: Placement time: Site: Days: Peripheral IV Left Lower Other (Comment) 20 g 10/06/18 2350 Other (Comment) 2 Peripheral IV Right Lower Other (Comment) 18 g 10/06/18 2350 Other (Comment) 2 Wound Left neck 10/07/18 0000 neck 2 Quality section Dispo: Home with assist pending clinical stability. FAST HUG Feeding: regular Analgesia: home norco, gabapentin. Sedation: none, Yuriy 0--1 Thromboprophylaxis: None at present, early mobilization after bedrest Head of Bed: Head of Bed Flat Ulcer Prophylaxis: not clinically indicated Glycemic Control: not indicated Created by Shikha Cuenca MD Author:Shikha Cuenca MD [address] [id number] signed by Eliana Granados MD at 10/09/2018 9:03 PM Tara Flowers MD - 10/09/2018 6:33 AM PDTFormatting of this note might be differe nt from the original. [facility] INTERVENTIONAL NEURORADIOLOGY at [facility] HISTORY AND PHYSICAL NAME: Guilherme Jorge : 1955 Guilherme Jorge is a 63 y.o. RIGHT handed male with tobacco abuse, hypertension, hyperlipid emia, and recurrent cervical basal cell carcinoma treated with MOHS and recent 20 sessions o f radiation therapy ending on 10/02 who suffered a left MCA and MAIL CLERK BILLS stroke on 10/04/2018. L ICA stenosis with MAIL CLERK BILLS identified on imaging. Initiated on a heparin infusion + aspiri n. Underwent diagnostic cerebral angiogram on 10/08/[address] 60% st enosis of the proximal LICA. Neurosurgery was consulted who considered CEA high risk due to recent left neck radiation, left neck radiation-induced dermatitis, and possible skin necro sis. Patient pretreated with Plavix and aspirin in preparing for carotid stent placement to day. SUBJECTIVE: Current neurologic status: stable Review of systems Neurologic: No unusual headaches, inability to speak, poor balance, numb ness, tingling, tremors, memory loss, disturbances in coordination or sensation of room spin mauro. NPO STATUS maintained: No ( NPO x < 6 hours from solids and or NPO x < 3 hours from clear liquids). PAIN: no Patient is able to lie flat yes PRE-PROCEDURE EVALUATION History of adverse experiences with sedation/analgesia/anesthesia: NO Prior difficult intubation or ventilation: NO Stridor: no Snoring: UNKNOWN Documented sleep apnea: UNKNOWN Morbid Obesity BMI>39: Body mass index is 26.4 kg/m. PREVIOUS ALLERGIC REACTION TO IV CONTRAST? NO ALLERGIES No Known Allergies PAST MEDICAL HISTORY Past Medical History: Diagnosis Date Skin Cancer PAST SOCIAL HISTORY No past surgical history on file. CURRENT MEDICATIONS Current Medication List Name Sig ASPIRIN 81 MG TABLET Take 81 mg by mouth once daily. ATORVASTATIN 20 MG TABLET Take 20 mg by mouth once daily. CEPHALEXIN 500 MG CAPSULE Take 4 Caps by mouth once. GABAPENTIN 300 MG CAPSULE Take 900 mg by mouth three times daily. HYDROCODONE 10 MG-ACETAMINOPHEN 325 MG TABLET Take 1 tablet by mouth every six hours as nee ded. LISINOPRIL 10 MG-HYDROCHLOROTHIAZIDE 12.5 MG TABLET Take 1 tablet by mouth once daily. PRILOSEC OR Take by mouth. TAKING metformin, insulin, oral DM medications? NO TAKING anticoagulation / antiplatelet? YES, ASA and plavix LABS: Lab Results Component Value Date WBC 10.98 (H) 10/09/2018 HCT 43.2 10/09/2018 PLT 251 10/09/2018 Lab Results Component Value Date NA 141 10/08/2018 K 4.4 10/08/2018 CL 113 (H) 10/08/2018 BICARB 22 10/08/2018 BUN 20 10/08/2018 CR 1.15 10/08/2018 GLU 78 10/09/2018 Lab Results Component Value Date INRPT 1.03 10/07/2018 OBJECTIVE: BP 154/67 (BP Location: Left upper arm, Patient Position: Lying on back) | Pulse 64 | Tem p 36.7 C (98.1 F) | Resp 16 | Ht 1.753 m (5' 9") | Wt 81.1 kg (178 lb 12.7 oz) | SpO 2 95% | BMI 26.40 kg/m | BSA 1.99 m GENERAL: no distress NEURO: MS: alert, interactive, no aphasia, no neglect CN: gaze primary, VF intact, face symmetric,, no dysarthria MOTOR: antigravity in all 4 extremities SENSORY: intact and symmetric in all 4 extremities COORDINATION: no ataxia ENT: *FOCUSED AIRWAY EXAMINATION: normal airway Heart: regular Lungs: Lungs clear to auscultation. Extremities: RIGHT and LEFT DP and PT pulses palpable. Skin is pink and warm. IMPRESSION : 60% stenosis of the proximal LICA, carotid stent placement today ACTIVE MEDICAL PROBLEMS: Patient Active Problem List Diagnosis Date Noted Acute ischemic left ICA stroke (HCC) 10/06/2018 Malignant neoplasm of skin Overview Note: ICD10 Procedural Plan: Proceed with planned procedure ASA SCORE is: ASA III ( Severe Systemic disease with functional limitations that is not in capacitating). Proceed with planned level of sedation: Moderate Sedation The risk of angiography was explained to the patient or patient's surrogate in detail, incl uding risks, benefits, alternatives, and indications. All questions were answered in detail. The patient or the patient's surrogate directs us to proceed. PARQ Reviewed, consent obtain ed. Tara Dawson MD Neurosurgery, PGY-1 Pager [phone] [facility] Interventional Neuroradiology Hermann Sawant MD - 0 10/08/2018 10:37 AM PDT [facility] INTERVENTIONAL NEURORADIOLOGY at [facility] HISTORY AND PHYSICAL NAME: Guilherme Jorge : 1955 Guilherme Jorge is a 63 y.o. RIGHT handed male with tobacco abuse, HTN, HLD, recurrent skin cancer s/p MOHS surgery and L neck radiationwith LKN evening of 10/04who presented to OSH with RUE weakness and aphasia. Patient woke on 10/04 with right hand numbness and clumsines s, also developed slurred speech and word finding difficulty. Presented to OSH ED and was se nt home. Symptoms worsened over the following day and on 10/05 they re-presented to OSH. C TA with severe LICA stenosis just distal to the bifurcation, L MAIL CLERK BILLS. MRI demonstratin g L parietooccipital ischemia/watershed infarct. He was started on heparin gtt and trans ferred for consideration of carotid stent vs CEA. SUBJECTIVE: right drift and right VF cut NPO STATUS maintained: Yes ( NPO x> 6 hours from solids and/or > 3 hours from clear liquid s). PAIN: no Patient is able to lie flat yes PRE-PROCEDURE EVALUATION History of adverse experiences with sedation/analgesia/anesthesia: no Prior difficult intubation or ventilation: UNKNOWN Stridor: no Snoring: UNKNOWN Documented sleep apnea: NO Morbid Obesity BMI>39: Body mass index is 26.4 kg/m. PREVIOUS ALLERGIC REACTION TO IV CONTRAST? NO ALLERGIES No Known Allergies PAST MEDICAL HISTORY Past Medical History: Diagnosis Date Skin Cancer PAST SOCIAL HISTORY No past surgical history on file. CURRENT MEDICATIONS Current Medication List Name Sig ASPIRIN 81 MG TABLET Take 81 mg by mouth once daily. ATORVASTATIN 20 MG TABLET Take 20 mg by mouth once daily. CEPHALEXIN 500 MG CAPSULE Take 4 Caps by mouth once. GABAPENTIN 300 MG CAPSULE Take 900 mg by mouth three times daily. HYDROCODONE 10 MG-ACETAMINOPHEN 325 MG TABLET Take 1 tablet by mouth every six hours as nee ded. LISINOPRIL 10 MG-HYDROCHLOROTHIAZIDE 12.5 MG TABLET Take 1 tablet by mouth once daily. PRILOSEC OR Take by mouth. TAKING metformin, insulin, oral DM medications? NO TAKING anticoagulation / antiplatelet? YES LABS: Lab Results Component Value Date WBC 9.49 10/08/2018 HCT 41.6 10/08/2018 PLT 238 10/08/2018 Lab Results Component Value Date NA 141 10/08/2018 K 4.4 10/08/2018 CL 113 (H) 10/08/2018 BICARB 22 10/08/2018 BUN 20 10/08/2018 CR 1.15 10/08/2018 GLU 92 10/08/2018 Lab Results Component Value Date INRPT 1.03 10/07/2018 OBJECTIVE: BP (!) 165/102 (BP Location: Right upper arm, Patient Position: Lying on back) | Pulse 75 | Temp 37 C (98.6 F) | Resp 17 | Ht 1.753 m (5' 9") | Wt 81.1 kg (178 lb 12.7 oz) | SpO2 96% | BMI 26.40 kg/m | BSA 1.99 m GENERAL: no distress NEURO: MS: alert, interactive, no aphasia, no neglect CN: gaze primary, right upper drift, right face mild weakness, no dysarthria MOTOR: antigravity in all 4 extremities SENSORY: intact and symmetric in all 4 extremities COORDINATION: no ataxia ENT: *FOCUSED AIRWAY EXAMINATION: normal airway Heart: irregular Lungs: Lungs clear to auscultation. Extremities: RIGHT and LEFT DP and PT pulses palpable. Skin is pink and warm. IMPRESSION : left MCA stroke related to LICA stenosis ACTIVE MEDICAL PROBLEMS: Patient Active Problem List Diagnosis Date Noted Acute ischemic left ICA stroke (HCC) 10/06/2018 Malignant neoplasm of skin Overview Note: ICD10 Procedural Plan: Proceed with planned procedure ASA SCORE is: ASA IV ( SevereSystemic disease that is incapacitiating and life threatening ). Proceed with planned level of sedation: Moderate Sedation The risk of angiography was explained to the patient or patient's surrogate in detail, incl uding risks, benefits, alternatives, and indications. All questions were answered in detail. The patient or the patient's surrogate directs us to proceed. PARQ Reviewed, consent obtain ed. Hermann Sommer MD [facility] Interventional Neuroradiology documented in this e ncounter Procedure Notes Hermann Sommer MD - 10/09/2018 10:53 AM PDTAssociated Order(s): CAROTID STENT PLACEMENTP rocedure(s): CAROTID STENT PLACEMENTFormatting of this note might be different from the orig inal. [facility] INTERVENTIONAL NEURORADIOLOGY Division of the [facility] Note Date: 10/09/2018 Admission Date: 10/06/2018 GUILHERME Rodriguze LUISITO, Hospital Day #3 BRIEF PROCEDURE NOTE Preprocedure Consent: reviewed prior to procedure Patient identity confirmed per policy Team Pause: Immediately prior to the procedure a pause per protocol was called. A pause verifies correct patient, procedure, equipment, shipping support clerk and site/side marked as required if indicated . Attending(s): Rubén Mulligan MD Finisher Plate(s): Hermann Sommer MD Preoperative Diagnosis: left MCA stroke LICA stenosis Postoperative Diagnosis: left MCA stroke LICA stenosis Sedation type: moderate Procedure: Left carotid stent placement Complications: None; patient tolerated the procedure well. EBL: 30mL Preliminary Impression: uccessful stenting of L ICA see dictation for full procedural details Access site: right Closure: Starclose, manual compression Pt to lie flat x 4 hours Plan: Groin Precautions Neuro checks Further care per NSICU/Stroke Plavix 75mg daily for 1 month the STOP aspirin 325mg daily for life continue atorvastatin 40mg daily STRICT SYSTOLIC BLOOD PRESSURE GOAL < 140mmHg consider nicardipine infusion with arterial line monitoring baseline carotid dopplers in 1 month Hermann Sommer MD Neuro IR documented in this e ncounter Consult Notes Jordana Sánchez, AlexD - 10/09/2018 2:29 PM PDTFormatting of this note might be differ ent from the original. Pharmacy Services: Admission Medication Reconciliation Prior to Admission Medications: Prior to Admission Medications Prescriptions Last Dose Informant Patient Reported? Taking? Aspirin 81 mg Oral Tablet Yes No Sig: Take 81 mg by mouth once daily. HYDROcodone-acetaminophen 10-325 mg oral tablet Yes Yes Sig: Take 1-2 tablets by mouth every six hours as needed. atorvastatin 20 mg oral tablet Yes No Sig: Take 20 mg by mouth once daily. cephALEXin (KEFLEX) 500 mg Oral Capsule No No Sig: Take 4 Caps by mouth once. gabapentin 300 mg oral capsule Yes Yes Sig: Take 900 mg by mouth three times daily. lisinopril-hydrochlorothiazide 10-12.5 mg oral tablet Yes Yes Sig: Take 1 tablet by mouth once daily. omeprazole 20 mg oral capsule,delayed release(DR/EC) Yes Yes Sig: Take 20 mg by mouth once daily. Administer 30 to 60 minutes before meals Facility-Administered Medications: None The above list reflects the patient's prior to admission medication use and is complete and accurate to the best of my knowledge. These variations will be discussed with the primary care team to determine clinical appropr iateness. Source of Medication Information: Family/Rx vials Reliability: Reliable All questions concerning medications, including OTC and herbal products, were addressed. For questions regarding this information please contact pharmacy, pager [phone] Thank you for the consult, Alex Yanez.D. Clinical Pharmacist [facility] Pharmacy Services Sully Rolon - 10/09/2018 9:38 AM PDTAssociated Order(s): IP CONSULT TO WOUND OSTOMYWound Consult Consulted for topical wound care recommendations for left neck s/p MOHS and radiation for BCC. Pt off the unit in IR. Chart reviewed. 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 Per it support technician left neck is red and moist. Goals of care are to keep area clean and provide moist healing environment. Recommendations: Cleanse wound gently with warm wet gauze. [place] periwound skin with Cavilon skin prep. Appl y SpandGel pad to reddened area (can place SpandGel in the fridge for cool soothing temperat ure). SpandGel can be found on 13K or can be ordered from [employer]. Change PRN dryness. May consider topical Lidocaine gel for pain relief, but do not use SpandGel if using Lidoca ine. Cover Lidocaine gel with Telfa non adherent dressing. Jojo Arreaga MD - 10/07/2018 1:12 PM PDTFormatti ng of this note might be different from the original. NEUROSURGERY HISTORY AND PHYSICAL Author: Jojo Rose MD Attending Physician: Hermann Sommer MD PCP: Alen Bolanos MD Reason for consult: L ICA severe stenosis HPI: Guilherme Jorge is a 63 y.o. male with HTN, HLD, recurrent basal cell carcinoma s/p MO HS surgery and L neck radiation x 20 times in his left neck during the last month, with subs equent left neck radiation-induced dermatitis, possible skin necrosis. He presented on 10/04 w ith right hand numbness and clumsiness, also developed slurred speech and word finding diffi culty. Presented to OSH ED and was sent home. Symptoms worsened over the following day and on 10/05 they re-presented to OSH. CTA with severe LICA stenosis just distal to the bifurca tion, L MAIL CLERK BILLS present. MRI demonstrating L parietooccipital ischemia/watershed infarct . Started on heparin gtt and transferred to [facility] for further care. Neurosurgery consulted fo r consideration of carotid stent vs CEA. PMH: Past Medical History: Diagnosis Date Skin Cancer PSH: Past Medical History:Negative Social History: Social History Social History Marital status: Spouse name: N/A Number of children: N/A Years of education: N/A Occupational History Not on file. Social History Main Topics Smoking status: Current Every Day Smoker Packs/day: 1.00 Types: Cigarettes Smokeless tobacco: Not on file Alcohol use Not on file Drug use: Unknown Sexual activity: Not on file Other Topics Concern Not on file Social History Narrative No narrative on file Family History: Family History Medications: Current Facility-Administered Medications: acetaminophen (TYLENOL) tablet 650 mg, 650 mg, o ral, Q4H PRN, Steph Nance MD, 325 mg at 10/07/18 0853 aspirin chewable tablet 81 mg, 81 mg, oral, DAILY, Steph Nance MD, 81 mg at 10/07/18 0 853 atorvastatin (LIPITOR) tablet 40 mg, 40 mg, oral, DAILY, Steph Nance MD, 40 mg at 0412/20 0853 bisacodyl (DULCOLAX) suppository 10 mg, 10 mg, rectal, DAILY PRN, Steph Nance MD gabapentin (NEURONTIN) capsule 900 mg, 900 mg, oral, TID, Steph Nance MD, 900 mg at 0853 heparin 25,000 Units in NaCl 0.9 % (NS) 250 mL (100 Units/mL) IV infusion, 1-2,500 Units/hr , intravenous, CONTINUOUS, Steph Nance MD, Last Rate: 13.5 mL/hr at 10/07/18 0903, 1,35 0 Units/hr at 10/07/18 0903 hydrALAZINE (APRESOLINE) tablet 10 mg, 10 mg, oral, Q6H PRN, Steph Nance MD HYDROcodone-acetaminophen (NORCO) 10-325 mg 1 tablet, 1 tablet, oral, Q6H PRN, Steph fernandez MD, 1 tablet at 10/07/18 0853 lidocaine (XYLOCAINE URO-JET) 2 % jelly, , urethral, ONCE, La De La Cruz MD ondansetron (ZOFRAN) tablet 8 mg, 8 mg, oral, Q12H PRN, Steph Nance MD pantoprazole (PROTONIX) tablet 20 mg, 20 mg, oral, DAILY, [place] De La Cruz MD, 20 mg at 10/07/18 1050 polyethylene glycol (MIRALAX) packet 34 g, 34 g, oral, TID PRN, Steph Nance MD senna-docusate (SENOKOT S) 8.6-50 mg 1 tablet, 1 tablet, oral, BID, Steph Nance MD Allergies: No Known Allergies Exam: BP 158/89 (BP Location: Right upper arm, Patient Position: Lying on back) | Pulse 63 | Te mp 36.5 C (97.7 F) | Resp 16 | Ht 1.753 m (5' 9") | Wt 81.1 kg (178 lb 12.7 oz) | Sp O2 93% | BMI 26.40 kg/m | BSA 1.99 m Awake, alert, oriented to self, time, place, situation Following commands briskly Speech dysarthric, no aphasia PERRL EOMI Visual allison full to confrontation bilaterally Facial sensation intact Face symmetric Shoulder shrug equal bilaterally Tongue midline Strength: Right drift RUE: 4/5 D/B/T/HG LUE: 5/5 D/B/T/HG RLE: 5/5 HF/KE/DF/PF LLE: 5/5 HF/KE/DF/PF SILT Left neck with radiation-induced dermatitis, possible skin necrosis. Labs: Chemistries: Recent Labs 10/07/18 0103 NA 140 K 4.1 CL 107 BICARB 28 BUN 21* CR 1.25 CA 9.2 CBC with diff: Recent Labs 10/07/18 01010/07/18 0730 WBC 11.17* 11.19* HB 14.6 13.9 HCT 43.9 41.8 PLT 257 247 NEUTROPERC 57.2 -- LYMPHPERC 30.4 -- MONOPERC 8.1 -- BASOPERC 1.1 -- EOSPERC 3.0 -- Coags: Lab Results Component Value Date APTT 78.5 (H) 10/07/2018 CBG's: Recent Labs 10/07/18 0047 10/07/18 0103 10/07/18 0837 GLU 113* 117* 90 Imaging: CTA in OSH: Brain MRI in OSH: Assessment and Plan: Guilherme Jorge is a 63 y.o. male with HTN, HLD, recurrent basal cell carcinoma s/p MOHS yip rgery and L neck radiation x 20 times in his left neck during the last month, with subsequen t left neck radiation-induced dermatitis, possible skin necrosis. He presented on 10/04 with r ight hand numbness and clumsiness, also developed slurred speech and word finding difficulty . Presented to OSH ED and was sent home. Symptoms worsened over the following day and on they re-presented to OSH. CTA with severe LICA stenosis just distal to the bifurcation, L MAIL CLERK BILLS present. MRI demonstrating L parietooccipital ischemia/watershed infarct. Sta rted on heparin gtt and transferred to [facility] for further care. Given the recent left neck radiation, and the left neck radiation-induced dermatitis, possi ble skin necrosis, we do not recommend CEA for this patient. - INR evaluation for DCA and possible endovascular Treatment Neurosurgery will sign off at this time. Please re-consult us in case of new concerns. This case has been discussed with Dr. Rhodes, attending neurological surgeon on-call, who is in agreement with the assessment and plan as defined. Please contact the Neurosurgery resident on-call pager [phone] with questions or concerns. Jojo Rose MD Resident Physician Department of Neurosurgery Pg [phone] signed by John Rhodes MD at 10/12/2018 9:06 AM Steph Cosby MD - 10/06/2018 8:00 PM PDT STROKE H&P/CONSULT NOTE Consult Date/Time: 10/06/2018 8:00 PM Requesting Attending: Hermann Sommer MD Reason for Transfer: Symptomatic L ICA stenosis HPI: Guilherme Jorge is a 63 y.o. RIGHT handed male with HTN, HLD, recurrent skin cancer s/ p MOHS surgery and L neck radiation with LKN evening of 10/04 who presented to OSH with RUE we akness and aphasia. Patient woke on 10/04 with right hand numbness and clumsiness, also devel oped slurred speech and word finding difficulty. Presented to OSH ED and was sent home. Sym ptoms worsened over the following day and on 10/05 they re-presented to OSH. CTA with severe LICA stenosis just distal to the bifurcation, L MAIL CLERK BILLS. MRI demonstrating L parietooccip ital ischemia/watershed infarct. He was started on heparin gtt and transferred for conside ration of carotid stent vs CEA. Currently feels like his right hand weakness has improved. Feels very tired. DEnies kourtney pickard. Has had right visual field cut since April, unsure if it is worse. Of note, he completed a course of radiation to the left side of his neck on 10/02/18 and had been holding his aspirin for the past 4 weeks. Denies history of stroke. Had blood in his urine yesterday. PMH: Patient Active Problem List Diagnosis Date Noted Malignant neoplasm of skin HTN HLD Home Meds: Current Medication List Name Sig ASPIRIN 81 MG TABLET Take 81 mg by mouth once daily. ATORVASTATIN 20 MG TABLET Take 20 mg by mouth once daily. CEPHALEXIN 500 MG CAPSULE Take 4 Caps by mouth once. GABAPENTIN 300 MG CAPSULE Take 900 mg by mouth three times daily. HYDROCODONE 10 MG-ACETAMINOPHEN 325 MG TABLET Take 1 tablet by mouth every six hours as nee ded. LISINOPRIL 10 MG-HYDROCHLOROTHIAZIDE 12.5 MG TABLET Take 1 tablet by mouth once daily. PRILOSEC OR Take by mouth. Allergies: Allergies No Known Allergies Social History: Social History Social History Marital status: Spouse name: N/A Number of children: N/A Years of education: N/A Occupational History Not on file. Social History Main Topics Smoking status: Current Every Day Smoker Packs/day: 1.00 Types: Cigarettes Smokeless tobacco: Not on file Alcohol use Not on file Drug use: Unknown Sexual activity: Not on file Other Topics Concern Not on file Social History Narrative No narrative on file / ppd x 20 years, 'quit' yesterday No EtOH Marijuana for pain (smokes or edibles) No illicits Family History: Noncontributory PE: Last Vitals: BP (!) 184/92 (BP Location: Left upper arm, Patient Position: Lying on back) | Pulse 65 | Temp 36.5 C (97.7 F) | Resp 20 | Ht 1.753 m (5' 9") | Wt 81.1 kg (178 l b 12.7 oz) | SpO2 97% | BMI 26.40 kg/m | BSA 1.99 m 24 Hour Vital Min/Max: Systolic (24hrs), Av , Min:184 , Max:184 Diastolic (24hrs), Av, Min:92, Max:92 Pulse Min: 65 Max: 65 Temp Min: 36.5 C (97.7 F) Max: 36.5 C (97.7 F) Resp Min: 20 Max: 20 SpO2 Min: 97 % Max: 97 % No intake or output data in the 24 hours ending 10/07/18 0036 Gen: Pleasant man laying in bed in NAD, appears older than stated age. CV: normal rate, regular rhythm Pulm: breathing comfortably Neurological: Category Description Score 1a. Level of [...] hemianopia 2=Complete hemianopia 3=Bilateral hemianopia (blind) 2 4. Facial Paresis (Show teeth, raise eyebrows and squeeze eyes shut) 0=Normal 1=Minor 2=Partial 3=Complete 0 5a. Motor Left Arm (Elevate arm to 90 deg if sitting, 45 if supine, hold for 10 seconds) 0=No drift 1=Drift 2=Can't resist gravity 3=No effort against gravity 4=No movement X= Untestable 0 5b. Motor Right Arm As in [...] neglect 2=Complete neglect 0 TOTAL SCORE: 4 Mental Status: Awake, alert, oriented x4. Able to follow commands. Speech is fluent, mil d dysarthria, no aphasia. Naming and repetition intact. Cranial Nerves: PERRL, RHH, Gaze conjugate, EOMI. Sensation intact and symmetric to lig ht touch V1-V3. Symmetric facial motor function bilaterally. Hearing grossly intact. Shrug intact. Tongue midline. Motor: Normal tone in all groups. SLight R pronator drift. Otherwise full strength througho ut. Sensation: Light touch: Intact and symmetric in the bilateral upper and lower extremities. Plantar response is flexors bilaterally Reflexes 3+ and symmetric throughout. 5-6 beats of clonus bilaterally. Coordination: Finger to nose is of normal speed, no action tremor, and no end-point dysmetr ia. Normal heel to yoon. Gait and Romberg: Not tested IMAGING: CTH/CTA head/neck 10/06/2018 : severe LICA stenosis just distal to the bifurcation, L P CA. MRI Brain: Scattered small areas of diffusion restriction in L parieto-occipital region, wa tershed. Generalized atrophy. Assessment: 63 yo man with symptomatic L ICA stenosis with MAIL CLERK BILLS transferred for consid eration of CEA versus stent. No tPA due to time. Transferred for consideration for CEA vers us stent. Of note, patient just cmpleted radiation to the left side of his neck on 10/02/18. Maintain on heparin gtt, plan for angio on Tuesday. Secondary stroke workup below. Stroke Workup: Etiology: Symptomatic L ICA stenosis Vascular imaging: CTA LDL: No results found for: CHOL, LDL, HDL, TRI HgbA1C: No results found for: A1C Tobacco: 1/2 ppd x20 years, motivated to quit ECHO: pending Telemetry: NSR Swallow: pensing Antithrombotic/anticoagulant: ASA 81 COST REDUCTION ENGINEER PT/OT/AUDITOR IN CHARGE: pending Social Work: pending Plan: - q 4 hour neuro check - SBP <180 - Hpld home lisinopril-HCTZ - Hyralazine prn - Heparin gtt, stroke protocol - Aspirin 81 mg - Atorvastatin 40 mg daily - Plan for angio on Sunday 10/08 - Neurosurgery consult in the morning - Check HgbA1c, Fasting lipids - Transthoracic Echo with bubble - Maintain Telemetry - PT/OT/speech/swallow eval. When appropriate - Stroke SW This patient has been staffed with Dr. Hermann Sommer, attending physician, who agrees with the above assessment and plan. Steph Nance MD Neurology PGY-4 Pager #[phone] face documented i n this encounter Miscellaneous Notes Plan of Care - Roberta Weinstein, PT - 10/10/2018 12:56 PM PDTFormatting of this note might be dif ferent from the original. Physical Therapy Re-Evaluation 10/10/2018 12:56 PM Time in: 0953 Time out: 1019 Patient was seen for a total of 26 minutes of direct one on one skilled physical therapy wh ich included a re-evaluation and 9 minutes of therapeutic activity. Patient seen on 7NSICU. Hospital Day: 4 Present throughout session: Patient, PT, while in room Brief Hospital Course: Guilherme Jorge is a 63 y.o. RIGHT handed male with HTN, HLD, recurr ent skin cancer s/p MOHS surgery and L neck radiation with LKN evening of 10/04 who presented to OSH with RUE weakness and aphasia. Patient woke on 10/04 with right hand numbness and clum siness, also developed slurred speech and word finding difficulty. Presented to OSH ED and w as sent home. Symptoms worsened over the following day and on 10/05 they re-presented to OSH. CTA with severe LICA stenosis just distal to the bifurcation, L MAIL CLERK BILLS present. MRI de monstrating L parietooccipital ischemia/watershed infarct. Started on heparin gtt and transf erred for consideration of carotid stent vs CEA, now s/p angiography on 10/08/[address] on 10/09/2018. (Eliana Granados MD on 10/09/18) Relevant Precautions: fall risk Status Update: patient now s/p left ICA stent on 10/09/18 Subjective: "My stomach is bothering me, but I'm doing ok" Pain: 0/10, no complaints. Objective: Vital Signs: stable, monitored throughout Cognitive Screen Level of alertness: alert Orientation: self, place, situation Quality of responses: mild delay but appropriate to questions asked Command following: follows 1 step commands Judgment / safety awareness: No impulsivity noted Physical Assessment ROM: bilateral upper and lower extremity grossly within functional limits Strength: bilateral upper extremities grossly 3+/5, bilateral lower extremity grossly 5/5. Edema: no notable edema Skin Integrity: dressing to neck intact Posture: mild increased kyphosis Neurological Function Sensation: denied numbness or tingling, not formally tested Muscle Tone: intact Proprioception: within functional limits Gross Motor: within functional limits Fine Motor: within functional limits Balance: Sitting static: independent Sitting dynamic: supervision Standing static: supervision Standing dynamic: contact guard assistance Mobility & Transfers: Supine > sit independently. Sit <> stand independently. Sit > supine independently. Gait: The patient ambulated 300 feet with contact guard assistance of handheld assistance. Mildly unsteady throughout. Patient's reports this is baseline. Patient was educated on safety, PT role and plan of care. The session was ended with patient supine in bed, call light within reach and nurse updated , at bedside. [facility] BASIC MOBILITY Difficulty turning over in bed 4 - None - Modified Independent/Independent Difficulty sitting/standing from chair w/ arms 4 - None - Modified Independent/ Independent Difficulty moving from supine to sitting on edge of bed 4 - None - Modified Independent/Ind ependent Help needed moving from /to chair/wheelchair 4 - None - Modified Independent/Independent Help needed walking in hospital room 3 - A Little - Minimal/Contact Guard assist/Supervisio n Help needed climbing 3-5 steps w/railing 3 - A Little - Minimal/Contact Guard Assist/Superv ision [facility] Basic Mobility Total Score 22 Assessment: Mr. Jorge continues to be at his recent baseline of performing transfers indep endently, mild standing dynamic balance impairment requiring handheld assistance during ambu lation. Interpretation of [facility] Short Form - Basic Mobility: CMS Modifier (G-Code) Score (in points) % of Functional Impairment, Limitation, or Restriction CJ 20-22 At least 20%, but less than 40% impaired, limited, or restricted Problem: PT Goals- Adult Goal: Functional Mobility Goal Revised 10/10/18: 1. Patient will transfer supine <> sit independently. 2. Patient will transfer sit <> stand independently. 3. Patient will ambulate 150 feet with contact guard assistance. 4. Patient's caregiver/family will be independent in techniques to guard/assist patient as needed. Outcome: Goal met Date Met: 10/10/18 Updated Plan: Discontinue PT, patient to continue routine mobility with nursing staff syed medellin Activity Recommendations for Nursing partners: *Nursing to re-assess per shift as needed.* - Lights on and curtains open during day hours. -out of bed to chair for meals or at least 3x/daily with nursing staff assistance - routine hallway ambulation at least 3x/daily with nursing staff assistance DISCHARGE RECOMMENDATIONS: Home with assist PRN The above plan of care and goals were developed and reviewed with the patient. Should this patient discharge from the hospital prior to the next physical therapy treatmen t, this note shall serve as the discharge summary. ROBERTA WEINSTEIN PT #[id number] lan of Care - Deo Frey [facility] - 10/10/2018 11:58 AM PDT Occupational Therapy Treatment 10/10/2018 11:58 AM [id number] GUILHERME JORGE Date of : 1955 Start of care: 10/06/2018 Date of onset: 10/06/2018 Referring/Attending Practitioner: Hermann Sommer MD Primary/Referral Diagnosis/ICD-9: I63.532 Acute ischemic left MAIL CLERK BILLS stroke (HCC) I63.232 Acute ischemic left ICA stroke (HCC) Insurance: Payor: [email or web address] / Plan: [facility] / Product Type: Indemnity / Service period: 10/10/2018 to 11/09/2018 Time in: 1055 Time out: 1150 Pt admitted on 10/06/2018, hospital day # 4. Pt seen on: 7NS Present in Session: OT, patient and Patient's -presently his caregiver Communication / Barriers: behavioral, confabulates with joking and sarcasm. Hospital Course Update: cleared medically to DC, final OT assessment Relevant Precautions: high fall risk. Subjective: Patient encountered in bed. Saw PT earlier and was determined patient was at [facility], which is hand held assistance level. Patient's endorses that patient needs assi st with most activities of daily living. "I have tried to help him engage in so many things but just can't seem to find anything jamar t works." "He has been diagnosed with vascular dementia" and conveyed that patient's behavio r has changed substantially over the past few years. E.g. "He is very handsy and won't stop touching me, even in public. It is embarrassing." Objective: Focus on session was to identify DC planning needs, fall prevention strategies, safety concerns and caregiver training. Had a length discussion, patient contributing with o ff handed jokes and some realistic comments about behavior disturbances that lead to conflic t and adjustment issues in the home setting. E.g. Is patient "sits on the couch all day long and buys 'stuff'" This is producing a financial burden on family. Patient also adamant abou t wanting to drive again despite the vision and coordination impairment. Patient's disa llows this but it causes a conflict between them. Provided therapeutic listening throughout the session to normalize and acknowledge context of conflicts, cognitive impairments that co uld be impacting behavior and decision-making on the patient's part as well as compensatory strategies to mitigate conflict and establish new habits and patterns that optimize patient safety, improve quality of life/engagement as well as support caregiver () in her attemp ts to provide adequate care. Reviewed home set up and implications of falls as well as risk factors. Recommend durable medical equipment. Also discussed caregiver self care regimen for her own mental well being. She became tearful several times and adequate conveyed the measu res she is taken to provide the best care for her . She also conveyed the barriers an d desired changes, such as possibly moving out of their large tri-level home, as she is the only home taker at this point is expressed being overwhelmed. Discussed possible consult wit h neuropsychiatrist or neuropsychologist to address causational factors for behavior disturb ance. Patient's stated there could be one in [place]. [facility] DAILY ACTIVITY - How much help from another person does the patient currently need f or: Lower body dressing 3 - Little Bathing 2 - Alot Toileting 3 - Little Upper body dressing 3 - Little Personal grooming 4 - None Eating meals 4 - None [facility] Daily Activity Total Score 19 1 - Unable to do/total assistance = Total/Dependent Assist 2 - A lot = Maximum/Moderate Assistance 3 - A little = Minimal/Contact Guard Assist/Supervision 4 None = Modified independent/Independent Pain: denies Ended session: Patient left in supine, call button in reach and family present. RN informed of OT recs and pt performance. Assessment: Goals not met due to at patient's baseline he required assistance and hand held assistance for mobility and activities of daily living. Focus today was DC needs as patient is medically cleared for DC home. Patient's conveyed many difficult aspects of caregiv ing for her . She does not have support. Patient with behavioral change (reported fro m that he has been dx'd with vascular dementia) and she is having a difficult time gilberto ging. Recommend neuropsch consult in out pt setting. Patient is cleared from OT to DC home b ut should he remain in house, could medically benefit from skilled occupational therapy in o rder to maximize independence and safety during ADL and IADL completion. Discharge recommend ations listed below. Interpretation of [facility] Short Form Daily Activity: Score (in points) % of Functional Impairment, Limitation, Restriction 6 100% impaired, limited, restricted 7-8 At least 80%, but less than 100% impaired, limited restricted 9-13 At least 60%, but less than 80% impaired, limited restricted 14-19 At least 40%, but less than 60% impaired, limited restricted 20-22 At least 20%, but less than 40% impaired, limited restricted 23 At least 1%, but less than 20% impaired, limited restricted 24 0% impaired, limited restricted Recommendations: ACTIVITY PLAN: *Nursing to re-assess per shift as needed.* - Lights on and curtains open during day hours. -up to a chair as tolerated - encourage daily participation in activities of daily living and provide necessary set up as needed to facilitate appropriate level of independence and engagement - Reinforce precautions and fall prevention - COGNITIVE PYRAMID: - Memory New Learning/Reasoning and Judgement level: ? Provide external orientation aids: utilize white board and cue correct date, place, situa tion, simple goals for the day ? For safe mobility: Raise awareness of possible fall hazards, demonstrate safety strategie s ? Provide assist to identify when problem is occurring, help generate possible solutions ? Focus on one activity or one person at a time ? Help patient to prioritize activities ? Provide immediate and objective feedback during the activity ? Anticipate need for frequent repetition for understanding ? Guide prioritization of top 2 goals for patient to focus on ? Acknowledge frustration as needed and address concerns in a timely manner ? Collaborate on plan for the day ? Problem solve collaboratively ? Safety: Reinforce fall strategies that are working ? Support patient s goals for ADL and mobility success ? Breakdown information into tasks/steps ? Help patient take ownership of things patient can do ? Discuss daily, seasonal events Discharge Recommendations: 24 hour supervision;other (comment) (will need assist with ad ls as previous, also recommend neuropsychiatry or neuropsychology for evaluation and managem ent of behavioral disturbances) DME recommended at discharge: shower seat, grab bars and urinal PLAN: Goals: Goal: Other Goal Pt will be independent with upper body dressing. Pt will be independent with lower body dressing while sitting EOB. Pt will be modified indpendent with transfer to/from toilet with least restrictive device. Pt will be independent with frank care. Pt will tolerate 20 minutes standing at sink to independently complete oral hygiene and bc oming activity. Outcome: Goal not met due to patient was unable to perform these at baseline. has been assisting for months with the above mentioned skills. The skills of this therapist are necessary to safely and effectively furnish a recognized t herapy service whose goal is improvement of an impairment or functional limitation. Time in: 1055 Time out: 1150 Patient was seen for a total of 55 minutes of direct one on one skilled OT which included: Below are the OT charges from this session - Therapeutic Activity: 55 minutes Ashley Frey OTR/L andsaeid - Mansi Hendricks R N - 10/09/2018 6:14 PM PDTNursing Handoff Patient Daily Goal: patient goal to find out plan for hospital stay (10/07/18 0800) [facility] IP NURSE HANDOFF: [place] hospital course events: Per Steph Nance MD note on 10/06 : Fran Jorge is a 63 y.o. RIGHT handed male with HTN, HLD, recurrent skin cancer s/p MOHS surg maisha and L neck radiation with LKN evening of 10/04 who presented to OSH with RUE weakness and aphasia. Patient woke on 10/04 with right hand numbness and clumsiness, also developed slurre d speech and word finding difficulty. Presented to OSH ED and was sent home. Symptoms worse mily over the following day and on 10/05 they re-presented to OSH. CTA with severe LICA stenos is just distal to the bifurcation, L MAIL CLERK BILLS. 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 He was started on heparin gtt and transferred for consideration of c arotid stent vs CEA. Has had right visual field cut since April, unsure if it is worse. He completed a course of radiation to the left side of his neck on 10/02/18 and had been hold ing his aspirin for the past 4 weeks. 10/07: Diagnostic angiogram SAFETY Patient/Family Target: Pt will not have signs or symptoms of bleeding Progress to Target: Improving As evidenced by: Post Angio pt had small hematoma and had recently received 3 different anti clotting arge nts, site was assessed frequently, distal pulses were also monitored. , no new signs of blee ding present. COMFORT/ANXIETY/BEHAVIOR Patient/Family Target: Guilherme's pain will be managed <4 all shift Progress to Target: Improving As evidenced by: Guilherme endorsed neck pain once requiring one does of pain medicine this shift. Other wis e pt denied pain and stated he felt comfortable. NURSING ASSESSMENT & RECOMMENDATIONS FORWARD Nursing Assessment of Patient Stability Risk: Moderately stable ignificant Event - Jazmyne Justin sanchez - 10/09/2018 2:15 PM PDTFormatting of this note might be different from the or iginal. Update: Further discussion with patient's partner at bedside revealed some concerns about c ognitive decline since 04/2018. She states he has been acting more aggressively "it almost e nded our marriage, he has always been so kind." She states this is an abrupt change, and has included increased purchasing including books they already own and a camp trailer "and we d on't go camping anymore." He has been more agitated at home, and has been acting out his kanika ams more "he has always been a sleep walker but this week he was still asleep and was auguste naked screaming at the top of the stairs." The pt normally keeps the basement very organized and since April the space has been much more cluttered, "there isn't even a pathway to wa lk through it." Additionally he would take take of IADLs including the bills, and his partne r has had to take on these tasks because the pt stopped completing them. We were informed that the pt has been having hallucinations. He states he has been seeing " cats" both at the hospital as well as at home. He is aware that these are hallucination s. Performed MOCA as below: MOCA 10/09/2018 Trails (1 pt) 0 Cube (1 pt) 0 Clock draw (3 pts) 3 Naming (3 pts) 3 Memory (0 pts) 0 Attention - digits (2 pts) 2 Attention - letters (1 pt) 0 Attention - serial 7 (3 pts) 3 Language - repeat (2 pts) 1 Language - fluency (1 pt) 0 Abstraction (2 pts) 2 Delayed recall (5 pts) 4 Orientation (6 pts) 2 TOTAL SCORE (30 pts) 20 Years of education? 12+ Justin Pastranarocio MS3, [facility] P: [id number] &P Compiled Note - Shikha Hampton MD - 10/09/2018 1:05 PM PDT Genitourinary Urinary frequency Assessment & Plan Monitor UOP, may need to consider checking urine sodium. - PVR for retention/incomplete voiding. Other Hematuria Assessment & Plan Painless, Started , 10/06. Has been intermittent. [place]-dark red blood observed, no c lots. UA with isolated red cells. Improving with hydration per patient and . - Bladder scan Q6H, straight cath PRN for PVR >450 - Discussed with urology - unless passing obvious clots, considered as outpatient hematuria workup. Recommended following up UA, bladder scan. If apollo clots observed, can consider at CT urogram. ssessment & Plan Not e - Shikha Cuenca MD - 10/09/2018 1:04 PM PDTAssociated Problem(s): Urinary frequencyMon itor UOP, may need to consider checking urine sodium. - PVR for retention/incomplete voiding. Electronically signed by Shikha Cuenca MD at 02/2019 1:05 PM PDTAssessment & Plan Note - Shikha Cuenca MD - 10/09/2018 1:02 PM PDTAss ociated Problem(s): HematuriaPainless, Started , 10/06. Has been intermittent. [place]-da rk red blood observed, no clots. UA with isolated red cells. Improving with hydration per pa tient and . - Bladder scan Q6H, straight cath PRN for PVR >450 - Discussed with urology - unless passing obvious clots, considered as outpatient hematuria workup. Recommended following up UA, bladder scan. If apollo clots observed, can consider at CT urogram. CP (Adva nce Care Planning) - Shikha Cuenca MD - 10/09/2018 12:57 PM PDTFormatting of this note mi ght be different from the original. . Neuroscience Intensive Care Unit Goal of Care / Advance Care NSICU ASSIGNED #[id number] Date: 10/09/18 Advanced Directives: no Healthcare Agent(s): Surrogate decision maker has been identified and is : Alanna Jorge, maira can be c ontacted at [phone]. The surrogate decision maker has been listed as the emergency contac t within [facility]. Code Status: Current Code Status Date Active Code Status Order ID Comments User Context 10/06/2018 11:49 PM Full Code [id number] Steph Nance MD Inpatient Code History: Code Status History Date Active Date Inactive Code Status Order ID Comments User Context This patient has a current code status but no historical code status. Narrative Summary of Conversation: Patient would like to remain full code. Has had difficult time with neck radiation. Designa haritha Alanna as SDM. Decisions and Plan: Patient will remain full code. SDM. &P Compiled Note - Shikha Hampton MD - 10/09/2018 12:42 PM PDT Nervous * Acute ischemic left ICA stroke (HCC) Assessment & Plan SBP <140 PT,OT See Stent placement below SW stroke protocol Continue telemetry Outpatient stroke follow-up 1 month Head/Neck Carotid stenosis, left Assessment & Plan S/P stent placement 10/09/2018 - ASA 325 indefinitely - 75mg clopidogrel x 30 days. - Atorvastatin 40mg daily - Monitor for bradycardia post stent placement - Monitor groin site - Flat x4 hours - IVF 75mL/hour until taking reliable PO - SBP <140 Cardiovascular Essential hypertension Assessment & Plan Home lisinopril HCTZ combination held on presentation due to watershed ischemia. On Nicard ipine post procedure - Restart lisinopril 10mg - Continue to hold Hydrochlorothiazide - Down titrate nicardipine as able with close watch for hypotension as would not want to hy poperfuse intracranially either. Skin Malignant neoplasm of skin Assessment & Plan Being followed by wound care for post-radiation coyle. Wound care recs 4: Cleanse wound gently with warm wet gauze. [place] periwound skin with Cavilon skin prep. Appl y SpandGel pad to reddened area (can place SpandGel in the fridge for cool soothing temperat ure). SpandGel can be found on 13A or can be ordered from [employer]. Change PRN dryness. May consider topical Lidocaine gel for pain relief, but do not use SpandGel if using Lidoca ine. Cover Lidocaine gel with Telfa non adherent dressing. ssessment & Plan Not e - Shikha Cuenca MD - 10/09/2018 12:40 PM PDTAssociated Problem(s): Malignant neoplasm o f skinBeing followed by wound care for post-radiation coyle. Wound care recs 48: Cleanse wound gently with warm wet gauze. [place] periwound skin with Cavilon skin prep. Appl y SpandGel pad to reddened area (can place SpandGel in the fridge for cool soothing temperat ure). SpandGel can be found on 13A or can be ordered from [employer]. Change PRN dryness. May consider topical Lidocaine gel for pain relief, but do not use SpandGel if using Lidoca ine. Cover Lidocaine gel with Telfa non adherent dressing. ssessment & Plan Not Shikha Mustafa MD - 10/09/2018 12:36 PM PDTAssociated Problem(s): Essential hypertensi onHome lisinopril HCTZ combination held on presentation due to watershed ischemia. On Nicard ipine post procedure - Restart lisinopril 10mg - Continue to hold Hydrochlorothiazide - Down titrate nicardipine as able with close watch for hypotension as would not want to hy poperfuse intracranially either. ssessment & Plan Not Shikha Mustafa MD - 10/09/2018 12:35 PM PDTAssociated Problem(s): Acute ischemic left ICA stroke (HCC)SBP <140 PT,OT See Stent placement below SW stroke protocol Continue telemetry Outpatient stroke follow-up 1 monthElectronically signed by Shikha Cuenca MD at 12:36 PM PDTAssessment & Plan Note - Shikha Cuenca MD - 10/09/2018 11:34 AM PDTAssociat ed Problem(s): Carotid stenosis, leftS/P stent placement 10/09/2018 - ASA 325 indefinitely - 75mg clopidogrel x 30 days. - Atorvastatin 40mg daily - Monitor for bradycardia post stent placement - Monitor groin site - Flat x4 hours - IVF 75mL/hour until taking reliable PO - SBP <140 lan of Car April Valladares PT - 10/09/2018 10:20 AM PDTPT contact note Attempted to initiate PT treatment however pt currently out of room. Will continue to [place]oll ow. April [place], [place] [id number] signed by April Gardner PT at 10/09/2018 10:21 AM PDTHandoff - Lucila Solano RN - 10/09/2018 10:18 AM PDT Interventional Radiology Procedure Nursing Handoff Note Procedure: Carotid Stent Placement of L ICA Interventional Radiology Attending:Alessandra Mulligan Interventional Radiology (Fellow)/pager: Hermann Sommer #[phone] Procedure Meds: Fentanyl IV 50 mcg Midazolam IV 1 mg Cefazolin IV 2g Atropine IV .5mg Hydralazine IV 5mg Nicardipine IV gtt started at 5mg/hr Access site(s): RFA Closure device: Starclose and hand held pressure Hemostasis: 1055 Events: Pt tolerated procedure well Pt. location prior to IR: 10K Pt. Disposition and /or recovery post IR Procedure: 7NSICU andoff - Simran Sandy RN - 10/08/2018 11:26 PM PDTNursing Handoff Patient Daily Goal: patient goal to find out plan for hospital stay (10/07/18 0800) [facility] IP NURSE HANDOFF: [place] hospital course events: Per Steph Nance MD note on 10/06 : Fran Jorge is a 63 y.o. RIGHT handed male with HTN, HLD, recurrent skin cancer s/p MOHS surg maisha and L neck radiation with LKN evening of 10/04 who presented to OSH with RUE weakness and aphasia. Patient woke on 10/04 with right hand numbness and clumsiness, also developed slurre d speech and word finding difficulty. Presented to OSH ED and was sent home. Symptoms worse mliy over the following day and on 10/05 they re-presented to OSH. CTA with severe LICA stenos is just distal to the bifurcation, L MAIL CLERK BILLS. 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 He was started on heparin gtt and transferred for consideration of c arotid stent vs CEA. Has had right visual field cut since April, unsure if it is worse. He completed a course of radiation to the left side of his neck on 10/02/18 and had been hold ing his aspirin for the past 4 weeks. 10/07: Diagnostic angiogram COMFORT/ANXIETY/BEHAVIOR Patient/Family Target: Guilherme's pain will be managed <4 all shift Progress to Target: Improving As evidenced by: Guilherme rated his pain at or below 4/10, and reported good relief with [place]. NURSING ASSESSMENT & RECOMMENDATIONS FORWARD Nursing Assessment of Patient Stability Risk: Moderately stable Recommendations Forward: -NPO at MN for CEA. See nursing communication order for prep. -A/O x4. Slight slurred speech. difficulty with R hand coordination. R field cut. -Heparin gtt stopped, now on aspirin and plavix (should receive doses pre-op) -L neck wound, wound care per . -Ambulates with close SBA -Poor fluid intake, IV fluids started. UA negative - is at bedside. Very helpful with cares -very KEWEENAW Barriers to discharge: Pending clinical course: CEA 10/09 andoff - Karina Plascencia RN - 10/08/2018 2:58 PM PDTNursing Handoff Patient Daily Goal: patient goal to find out plan for hospital stay (10/07/18 0800) [facility] IP NURSE HANDOFF: [place] hospital course events: Per Steph Nance MD note on 10/06 : Fran Jorge is a 63 y.o. RIGHT handed male with HTN, HLD, recurrent skin cancer s/p MOHS surg maisha and L neck radiation with LKN evening of 10/04 who presented to OSH with RUE weakness and aphasia. Patient woke on 10/04 with right hand numbness and clumsiness, also developed slurre d speech and word finding difficulty. Presented to OSH ED and was sent home. Symptoms worse mily over the following day and on 10/05 they re-presented to OSH. CTA with severe LICA stenos is just distal to the bifurcation, L MAIL CLERK BILLS. 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 He was started on heparin gtt and transferred for consideration of c arotid stent vs CEA. Has had right visual field cut since April, unsure if it is worse. He completed a course of radiation to the left side of his neck on 10/02/18 and had been hold ing his aspirin for the past 4 weeks. 10/07: Diagnostic angiogram COMFORT/ANXIETY/BEHAVIOR Patient/Family Target: [place] pain will be managed <4 all shift Progress to Target: Improving As evidenced by: Guilherme's pain was tolerable most of the shift. He took a Tylenol this morning before the angio (when it was too soon for [place]) and hasn't needed pain meds for his neck pain post o p yet. He got Fentanyl during the angio. Remind patient to try and keep his hands off of ra diation spot. NURSING ASSESSMENT & RECOMMENDATIONS FORWARD Nursing Assessment of Patient Stability Risk: Moderately stable Recommendations Forward: -NPO at ID for CEA. See nursing communication order for prep. -A/O x4. Slight slurred speech. difficulty with R hand coordination. R field cut. -Heparin gtt stopped, now on aspirin and plavix (should receive doses pre-op) -L neck wound, wound care per . -L neck pain/premedicate prior to dressing change: norco10 and APAP available -Ambulates with close SBA (flat til 1530 after angio) -Poor fluid intake, IV fluids started. UA negative -Monitor BP. PRN PO hydralazine for SBP >190 - is at bedside. Very helpful with cares - KEWEENAW - Need 3 more q1 hour angio checks, next at 1530. Groin site CDI, good pulse Barriers to discharge: Pending clinical course:CEA 10/09 hane - Bang Alvarado RN - 10/08/2018 11:10 AM PDTInterventional Radiology Procedure Nursing Handoff N ote Procedure: Diagnostic cerebral angiogram Interventional Neuro Radiology Attending: Misael HANNAH Interventional Neuro Radiology MD (Fellow)/pager: Kemal HANNAH [phone] ([facility]) Procedure Meds: Pre Procedre meds given in PCU /Floor: NA Fentanyl IV 75 mcg Midazolam IV 0.5 mg Access site(s): Right femoral artery Closure device: Handheld pressure: See LDA for time of hemostasis. Events: Tolerated procedure well. Patient location prior to IR: 10K Patient disposition post IR and /or recovery: 10K andoff - Marilee Krause RN - 10/08/2018 4:36 AM PDTNursing Handoff Patient Daily Goal: patient goal to find out plan for hospital stay (10/07/18 0800) [facility] IP NURSE HANDOFF: [place] hospital course events: Per Steph Nance MD note on 10/06 : Fran Jorge is a 63 y.o. RIGHT handed male with HTN, HLD, recurrent skin cancer s/p MOHS surg maisha and L neck radiation with LKN evening of 10/04 who presented to OSH with RUE weakness and aphasia. Patient woke on 10/04 with right hand numbness and clumsiness, also developed slurre d speech and word finding difficulty. Presented to OSH ED and was sent home. Symptoms worse mily over the following day and on 10/05 they re-presented to OSH. CTA with severe LICA stenos is just distal to the bifurcation, L MAIL CLERK BILLS. 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 He was started on heparin gtt and transferred for consideration of c arotid stent vs CEA. Has had right visual field cut since April, unsure if it is worse. He completed a course of radiation to the left side of his neck on 10/02/18 and had been hold ing his aspirin for the past 4 weeks. COMFORT/ANXIETY/BEHAVIOR Patient/Family Target: [place] pain will be managed <4 all shift Progress to Target: No Change As evidenced by: [place] pain was tolerable most the night but got up to a six when he was touching his n jai. [place] and tylenol were given x2 with good effect. Remind patient to try and keep his chahal nds off of radiation spot. NURSING ASSESSMENT & RECOMMENDATIONS FORWARD Nursing Assessment of Patient Stability Risk: Moderately stable Recommendations Forward: -NPO at ID for angio -A/O x4. Slight slurred speech. difficulty with R hand coordination. R field cut. -Heparin gtt: next draw at 2029 -L neck wound, wound care per and dressing applied. -L neck pain/premedicate prior to dressing change: norco10 and APAP available -Ambulates with close SBA -Poor fluid intake, IV fluids started today. UA negative -Monitor BP. PRN PO hydralazine for SBP >190 - is at bedside. Very helpful with cares Barriers to discharge: Pending clinical course: [facility]io 10/08 . [facility] Shirley Chamorro MSW - 10/07/2018 7:09 PM PDT Problem: SW Goals & Interventions Intervention: Psychosocial Assessment Stroke Protocol Assessment Social Work Screening: Depression, Caregiving and Respite This screening is not required if the patient is transferring to the [place], another acute care setting, or with hospice services. Assessment completed with patient and/or family. Reason for Referral: EPIC consult; patient triggered a Social Work consult as part of [facility] Standard Stroke Protocol Process. Met with patient and spouse. Current Living Situation: Patient lives with his spouse in an historic home in [place], [place]. Current Social Supports: Spouse is Alanna, lives with patient. 40 years. Daughter Tiki lives close by a nd is a great support. Financial/Insurance status/Employment: [employer], [place]. Patient is retired [employer]. Both he and his are retired. Activities/Spirituality: Not scientologist Medical issues: PCP: Alen Bolanos MD Patient Active Problem List Diagnosis Malignant neoplasm of skin Acute ischemic left ICA stroke (HCC) Mental health/Substance Use history and current presentation (Assess for risk factors h /o depression, new deficits to functioning complete PHQ-2 if patient is able, and provid e anticipatory guidance to patient/family re: symptoms and treatment options): PHQ-2: No hx of mental health or substance abuse concerns. Enjoys drinking alcohol from time to time PHQ-2: Over the past 2 weeks, have you felt down, depressed or hopeless? no Over the past 2 weeks, have you felt little interest or pleasure in doing things? no Patient/family s understanding of Illness/reason for hospitalization (As observed by clin ician or reported by patient/family): Patient had a stroke, also hx of skin cancer. Emotional Well-Being/Grief/Loss/Adjustment (As applicable to both patient and family/caregi vers, as observed by clinician or reported by patient/family): Patient and spouse in good spirits, both enjoy joking around and have a good sense of humor . They seem to be a great support to each other. Spouse does endorse that they are both ex periencing stress and anxiety regarding patient's hospitalization and medical situation. Patient s post hospital care plan (i.e anticipated needs and placement at discharge): TBD, pending Caregiver Capability and Respite (if applicable identify caregiver(s) and assess readin ess, willingness, ability, respite plan): Patient's spouse is retired and at home, in fairly good health and willing to provide care for patient. Daughter lives nearby and is a possible support. Community Agency Involvement: None Additional comments:(identify any barriers) Multi-level home Advanced Directive/POA/HCR: No Advance Directive. Patient has paperwork and intends to work on it with spouse. Recommendations/Plans/Referrals: (include collaboration with other disciplines) SW provided education re: post-stroke depression, available supports for independent living, and caregi alexx-specific anticipatory guidance, including caregiver burnout and respite, as indicated. A pplicable resources discussed and included in AVS. Shirley Chamorro LCSW Evening/Weekend Pattern Repair Person Pagers: Adult [phone] Peds [phone] andoff - Mily Al sa RN - 10/07/2018 5:02 PM PDTNursing Handoff Patient Daily Goal: patient goal to find out plan for hospital stay (10/07/18 0800) [facility] IP NURSE HANDOFF: [place] hospital course events: Per Steph Nance MD note on 10/06 : Fran Jorge is a 63 y.o. RIGHT handed male with HTN, HLD, recurrent skin cancer s/p MOHS surg maisha and L neck radiation with LKN evening of 10/04 who presented to OSH with RUE weakness and aphasia. Patient woke on 10/04 with right hand numbness and clumsiness, also developed slurre d speech and word finding difficulty. Presented to OSH ED and was sent home. Symptoms worse mily over the following day and on 10/05 they re-presented to OSH. CTA with severe LICA stenos is just distal to the bifurcation, L MAIL CLERK BILLS. 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 He was started on heparin gtt and transferred for consideration of c arotid stent vs CEA. Has had right visual field cut since April, unsure if it is worse. He completed a course of radiation to the left side of his neck on 10/02/18 and had been hold ing his aspirin for the past 4 weeks. NURSING ASSESSMENT & RECOMMENDATIONS FORWARD Nursing Assessment of Patient Stability Risk: Moderately stable Recommendations Forward: -NPO at ID for angio -A/O x4. Slight slurred speech. difficulty with R hand coordination. R field cut. -Heparin gtt: next draw at 2029 -L neck wound, wound care per and dressing applied. -L neck pain/premedicate prior to dressing change: norco10 and APAP available -Ambulates with close SBA -Poor fluid intake, IV fluids started today. UA negative -Monitor BP. PRN PO hydralazine for SBP >190 - is at bedside. Very helpful with cares Barriers to discharge: Pending clinical course: Angio 10/08 lan of Care - Xiomara Persaud - 10/07/2018 11:30 AM PDTFormatting of this note might be different from the meche rodriguez. Problem: OT Goals- Adult Goal: Other Goal Pt will be independent with upper body dressing. Pt will be independent with lower body dressing while sitting EOB. Pt will be modified indpendent with transfer to/from toilet with least restrictive device. Pt will be independent with frank care. Pt will tolerate 20 minutes standing at sink to independently complete oral hygiene and bc oming activity. Outcome: Expected progress toward goal Occupational Therapy Evaluation [id number] GUILHERME JORGE Date of : 1955 Start of care: 10/06/2018 Date of onset: 10/06/2018 Referring/Attending Practitioner: Hermann Sommer MD Primary/Referral Diagnosis/ICD-9: I63.532 Acute ischemic left MAIL CLERK BILLS stroke (HCC) Insurance: Payor: [employer] [place] / Plan: [employer] FEDERAL / Product Type: PPO / Service period from: 10/07/2018 to 01/05/2019 Time in: 1051 Time out: 1124 Pt admitted on 10/06/2018, hospital day # 1. Pt seen on: 10K Precautions: fall risk - deconditioned Indication for Occupational Therapy Consult: Assess pt's level of function for ADLs and fun ctional mobility, educate pt and/or family on precautions and safety with ADL performance, d etermine adaptive equipment and safety techniques for discharge planning Brief Hospital Course: Per MD note, "Guilherme Jorge is a 63 y.o. RIGHT handed male with HT N, HLD, recurrent skin cancer s/p MOHS surgery and L neck radiation with LKN evening of 10/04 who presented to OSH with RUE weakness and aphasia. Patient woke on 10/04 with right hand nu mbness and clumsiness, also developed slurred speech and word finding difficulty. Presented to OSH ED and was sent home. Symptoms worsened over the following day and on 10/05 they re-p resented to OSH. CTA with severe LICA stenosis just distal to the bifurcation, L MAIL CLERK BILLS present. MRI demonstrating L parietooccipital ischemia/watershed infarct. Started on hepa rin gtt and transferred for consideration of carotid stent vs CEA. Anticipating angiogram 4/ AM." Past Medical History: Diagnosis Date Skin Cancer No past surgical history on file. Occupational Profile Present in Session: Spouse Living Environment: Lives with spouse in a 3 story home, pt is able to stay on main level. 5 steps to enter. Other than attending radiation pt spends day sleeping Bathroom: Shower tub, no grab bars, no shower chair Adaptive Equipment: cane Prior Level of Function: Pt requires assistance with ADLs and functional mobility since un dergoing radiation. Final radiation session was Tuesday Preexisting body functions/structures/psychosocial concerns: See above Pt/family occupational goals: To go home Analysis of Occupational Performance Vitals: Stable as per observation Pain: Did not report Cognitive skills Orientation: Ox4 Level of alertness: slightly lethargic, medication recently administered Insight: Good Memory: Good Attention: Good Command following: Able to follow multi-step commands CAM: Negative Emotional regulation and social skills: Appropriate Motor and praxis skills Hand Dominance: R UE joint integrity with passive range of motion - Left: WFL - Right: WFL UE strength - Left: grossly 5/5 - Right: grossly 5/5 Fine motor control: Slightly diminished R side Muscle tone: Intact Edema: None observed Skin Integrity: dressing over neck, otherwise WFL Postural alignment: WFL Sensory perceptual skills Vision: Reports no change from baseline - Visual allison: R visual field cut - Oculomotor control: - Pursuits: WFL - Saccades: WFL - Convergence: WFL Auditory: Responds to auditory stimuli Proprioception: Diminished RUE Tactile: Denies any numbness or tingling Functional performance skills [facility] DAILY ACTIVITY - How much help from another person does the patient currently need f or: Lower body dressing 3 - Little Bathing 3 - Little Toileting 3 - Little Upper body dressing 3 - Little Personal grooming 4 - None Eating meals 4 - None [facility] Daily Activity Total Score 20 1 - Unable to do/total assistance = Total/Dependent Assist 2 - A lot = Maximum/Moderate Assistance 3 - A little = Minimal/Contact Guard Assist/Supervision 4 None = Modified independent/Independent Interpretation of [facility] Short Form Daily Activity: CMS Modifier (G-Code) Score (in points) % of Functional Impairment, Limitation, or Restriction CN 6 100% impaired, limited, restricted CM 7-9 At least 80%, but less than 100% impaired, limited, or restricted CL 10-14 At least 60%, but less than 80% impaired, limited, or restricted CK 15-19 At least 40%, but less than 60% impaired, limited, or restricted CJ 20-22 At least 20%, but less than 40% impaired, limited, or restricted CI 23 At least 1%, but less than 20% impaired, limited, or restricted CH 24 0% impaired, limited, or restricted Functional Transfer & Mobility: Supine to sit: Min assist Sit to stand: NT Transfer to chair: NT Ambulation with ADLs: NT Treatment Provided Pt educated on increasing right upper extremity use to promote return in function. Transfer red to sitting edge of bed. Therapist provided pt with green theraputty and a therapeutic ac tivity to promote fine motor control. Pt choosing to defer out of bed mobility at this time, educated pt on importance of routine mobility to increase activity tolerance following radi ation. Supervision to return to supine in bed. Ended session: Patient left in bed, supine, call button in reach, nursing aware and family present. Assessment Pt presents today with decreased ADL performance and functional mobility, limited by decrea sed right upper extremity coordination and poor activity tolerance. Pt has been needing assi stance for ADLs and mobility since initiating radiation. Will continue to benefit from acute OT to regain independence focusing on ADLs, functional mobility, and increasing activity to lerance. ACTIVITY/ENVIRONMENTAL RECOMMENDATIONS: *Nursing to re-assess per shift as needed.* - lights on, curtains open - out of bed as tolerated - in chair for all meals or 3x/day - promote engagement in R fine motor control activities Memory & New Learning: Highly structured environment - Minimal distraction - Provide external orientation aids: utilize white board and cue correct date, place, sit uation, simple goals for the day - For safe mobility: Raise awareness of possible fall hazards, demonstrate safety strateg ies - Provide assist to identify when problem is occurring, help generate possible solutions - Focus on one activity or one person at a time - Help patient to prioritize activities - Provide immediate and objective feedback during the activity - Anticipate need for frequent repetition for understanding - Guide prioritization of top 2 goals for patient to focus on - Acknowledge frustration as needed and address concerns in a timely manner DISCHARGE RECOMMENDATIONS: Home with assist PRN EQUIPMENT RECOMMENDATIONS: tub transfer bench Plan: - Planned Frequency: 3x/wk (/ Sat) - Duration: 2 weeks Time in: 1051 Time out: 1124 Patient was seen for an OT evaluation and a total of 10 minutes of direct one on one skille d OT treatment which included: - Therapeutic Activity: 10 minutes Personal factors/Comorbidities Evaluation Complexity (Moderate): Occupational profile and medical/therapy history is expanded. Assessment identifies 3-5 performance deficits relating to physical, cognitive and psychoso cial skills that results in activity limitations or participation restrictions. Clinical decision making is of moderate analytic complexity, involving consideration of mul tiple treatment options. Patient may present with comorbidities that affect occupational performance. Minimal to moderate modification of tasks or assistance is necessary to complete evaluation component. The patient requires services that can be safely and effectively performed only by a qualif ied therapist to address the aforementioned and highlighted problems and goals. Goals discussed and agreed upon with Guilherme and family. Jojo Persaud OTR/L Pager #[phone] lan of Care - Sunshine Hinson, PT - 10/07/2018 8:12 AM PDTFormatting of this note might be different from the herman westbrook. Physical Therapy Evaluation [id number] GUILHERME Shaw Hospital Day: 1 Date of : 1955 Start of care: 10/07/2018 Attending Practitioner: Hermann Sommer MD Primary/Referral Diagnosis/ICD-9: I63.532 Acute ischemic left MAIL CLERK BILLS stroke (HCC) Insurance: Payor: [facility] [place] / Plan: [employer] FEDERAL / Product Type: PPO / Service period from: 10/07/2018 to 01/05/2019 Time in: 0937 Time out: 1001 Patient was seen for a total of 24 minutes of direct one on one skilled physical therapy ich included evaluation and 10 minutes of therapeutic activity Patient seen on 10K Others Present for PT session besides patient and therapist: - Alanna Consulted/Discussed patient's care with: RN Brief Hospital Course: Guilherme Jorge is a 63 year old admitted on 10/06/2018 with HTN, HL D, recurrent skin cancer s/p MOHS surgery and L neck radiation with LKN evening of 10/04 who p resented to OSH with RUE weakness and aphasia. Patient woke on 10/04 with right hand numbness and clumsiness, also developed slurred speech and word finding difficulty. Presented to OSH ED and was sent home. Symptoms worsened over the following day and on 10/05 they re-presented to OSH. CTA with severe LICA stenosis just distal to the bifurcation, L MAIL CLERK BILLS. MRI de monstrating L parietooccipital ischemia/watershed infarct. He was started on heparin gtt a nd transferred for consideration of carotid stent vs CEA. (Steph Nance MD) Relevant Precautions: Right upper extremity weakness, fall risk, haard of hearing Indication for PT Evaluation: Instruction for safety with mobility following surgery or inj ury;Decline in functional mobility Past Medical History: Diagnosis Date Skin Cancer No past surgical history on file. Subjective: "grumpy" Living Environment: lives in [place] with in a 3 story home, main living area on [address] floor, has not been going upstairs much since April. 5 steps to enter with unilateral h andrail. Bathroom with clawfoot tub without grab bars or shower chair. is primary careg iver, home with him majority of the time. Prior Level of Function: independent with house hold ambulation, reports holding onto his arm for community ambulation due to unsteadiness. Decline in mobility since starting rad iation. Has had increased fatigue since Tuesday (last radiation), onset of right upper extrem ity numbness and weakness on . Has a cane at home but does not use it. 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 Enjoys riding around to look at all the animal s and visiting with his 3 grandchildren. Denies falls. Patient / Family Goal: return home Communication: omani Barriers: none identified Pain: denies Vital Signs: 152/77 mmhg, HR 62 Cognitive Screen Level of alertness: alert Orientation: to self, situation, place, date Quality of responses: appropriate Command following: good Judgment / safety awareness: fair - slightly impulsive with mobility with poor awareness of lines Physical Assessment ROM: bilateral lower extremities within functional limits Strength: RIGHT LEFT HIP FL / 5/5 KNEE FL 11/05 11/05 KNEE EX 11/05 11/05 DFL 11/05 11/05 Edema: none noted Skin Integrity: intact Posture: slumped seated posture with head down Neurological Function Sensation: intact Muscle Tone: normal Proprioception: not tested Gross Motor: intact Fine Motor: not tested Balance: Sitting static: normal Sitting dynamic: good Standing static: good Standing dynamic: fair Functional Balance Grades: Normal Static: Patient able to maintain steady balance without handhold support Dynamic: Patient accepts maximal challengeand can shift weight easily within full range i n all directions Good Static: Patient able to maintain balance without handhold support, limited postural sw ay Dynamic: Patient accepts moderate challenge; able to maintain balance while picking object off floor Fair Static: Patient able to maintain balance with handhold support; may require occasional minimal assistance Dynamic: Patient accepts minimal challenge; able to maintain balance while turning head/[place] nk Poor Static: Patient requires handhold support and moderate to maximal assistanceto maint ain position Dynamic: Patient unable to accept challenge or move without loss of balance O Monika Lackey. and Tapan Perera (2007). Physical rehabilitation: assessment and treatme nt (5thed.). [place]: [facility]. p.[phone] Mobility & Transfers: Supine to sit: minimal assistance Sit to supine: supervision Sit to stand: supervision Stand to sit: supervision Scoot: supervision Stand pivot transfer: stand by assist Gait: 300' pushing IV pole with contact guard assist - narrow base of support, good step le ngth bilaterally, mildly unsteady, standing rest after 150', mild increased work of breathin g- 1 minor loss of balance during standing rest break, recovered with minimal assistance Outcome Measure: [facility] BASIC MOBILITY Difficulty turning over in bed 4 - None - Modified Independent/Independent Difficulty sitting/standing from chair w/ arms 3 - A Little - Minimal/Contact Guard Assist/ Supervision Difficulty moving from supine to sitting on edge of bed 3 - A Little - Minimal/contact Guar d Assist/Supervision Help needed moving from /to chair/wheelchair 3 - A Little - Minimal/Contact Guard Assist/S upervision Help needed walking in hospital room 3 - A Little - Minimal/Contact Guard assist/Supervisio n Help needed climbing 3-5 steps w/railing 3 - A Little - Minimal/Contact Guard Assist/Superv ision [facility] Basic Mobility Total Score 19 Interpretation of [facility] Short Form - Basic Mobility: CMS Modifier (G-Code) Score (in points) % of Functional Impairment, Limitation, or Restriction CN 6 100% impaired, limited, restricted CM 7-9 At least 80%, but less than 100% impaired, limited, or restricted CL 10-14 At least 60%, but less than 80% impaired, limited, or restricted CK 15-19 At least 40%, but less than 60% impaired, limited, or restricted CJ 20-22 At least 20%, but less than 40% impaired, limited, or restricted CI 23 At least 1%, but less than 20% impaired, limited, or restricted CH 24 0% impaired, limited, or restricted *This score not officially observed but is implied based on other components of patient's m obility and may be an underestimate Treatment and education provided this date: Educated the patient on the importance of routine mobility, sitting upright either edge of bed or in a chair. Discussed physical therapy role, discharge planning, and plan of care. Ed ucated on safety precautions and waiting for assistance prior to mobilizing due to unsteadin ess and line management. Ended session: Patient left supine with call quiros within reach and RN updated. ASSESSMENT: Guilherme Jorge is a 63 year old admitted on 10/06/2018 with prior level of func tion independent with ambulation. Patient presents here with left parietoccipital ischemia/w atershed infarct now below baseline with mobility, mildly unsteady with gait, requiring assi stance for basic transfers, with low tolerance to activity. Acute PT services indicated to a ddress the above mentioned deficits. This patient has good rehabilitation potential to achieve stated goals (see Care Plan for g oals) and requires continued rehabilitation services, given the patient's medical condition is such that the skills of a therapist are required for monitoring and adjustment of interve ntions. Functional Mobility Goals: - Patient will be independent with supine to sit and sit to supine from a flat bed, no use of bed rails. - Patient will be independent sit to stand and stand to sit with least restrictive assistiv e device. - Patient will ambulate 400 ft independent with least restrictive assistive device. - Patient will safely ascend/descend 5 step(s) modified independent with use of handrail. - Patient will be independent with therapeutic exercise program as prescribed by PT. Personal factors/Comorbidities; Moderate - 1-2 personal factors. Behavior: Flat affect Learning Factors: Impairment of eye/ear/speech. Social Issues: None Medical Conditions Impacting Care: Oncological Body Systems Elements: Moderate - 3 or more elements Body structures & functions: Balance and Endurance Activity limitations: Impaired gait, Difficulty with stairs and Difficulty with activities of daily living Participation restrictions: Community activities. Clinical Presentation: Moderate - Evolving: Drains/lines/tubes and Vital signs response Clinical decision making: Moderate Complexity: Moderate level of skill to determine plan of care and implement changes accordingly Complexity: moderate Guilherme Hale knowledge of disease process: Good . The patient requires services that can be safely and effectively performed only by a quali fied therapist to address the aforementioned and highlighted problems and goals. Goals discussed and agreed upon with Guilherme. Activity Recommendations for Nursing partners: *Nursing to re-assess per shift as needed.* - Lights on and curtains open during day hours. - Up to chair for meals or 3x/day with 1 person assist. - Routine ambulation 3x/day with 1 person assist. DISCHARGE RECOMMENDATIONS: Home with assist PRN Consulted with: RN re: recommendations PLAN: Therapeutic exercise, balance, stairs, gait Frequency: 4x/week Duration: 1 week Sunshine Hinson PT, DPT The above plan of care and goals were developed and reviewed with the patient. Should this patient discharge from the hospital prior to the next physical therapy treatmen t, this note shall serve as the discharge summary. andoff - Nneka Alvarez RN - 10/07/2018 2:46 AM PDTNursing Handoff [facility] IP NURSE HANDOFF: [place] hospital course events: Tony Nance MD note on 10/06 : Fran Jorge is a 63 y.o. RIGHT handed male with HTN, HLD, recurrent skin cancer s/p MOHS surg maisha and L neck radiation with LKN evening of 10/04 who presented to OSH with RUE weakness and aphasia. Patient woke on 10/04 with right hand numbness and clumsiness, also developed slurre d speech and word finding difficulty. Presented to OSH ED and was sent home. Symptoms worse mily over the following day and on 10/05 they re-presented to OSH. CTA with severe LICA stenos is just distal to the bifurcation, L MAIL CLERK BILLS. 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 He was started on heparin gtt and transferred for consideration of c arotid stent vs CEA. Has had right visual field cut since April, unsure if it is worse. He completed a course of radiation to the left side of his neck on 10/02/18 and had been hold ing his aspirin for the past 4 weeks. SAFETY Patient/Family Target: Guilherme will not sustain fall or injury. Progress to Target: Improving As evidenced by: Guilherme ambulated to with SBA with imbalance. Bed alarm remained on, did not set off th e alarm and was not impulsive. was at bedside tonight. COMFORT/ANXIETY/BEHAVIOR Patient/Family Target: Guilherme wants to sleep and have adequate pain control. Progress to Target: Improving As evidenced by: Guilherme reported mild/moderate L neck pain. Received 1 tab of [place] tonight and his pain w as relief. Guilherme is tired from being awake past few days. Attempted to clustered care to allow more r est. NURSING ASSESSMENT & RECOMMENDATIONS FORWARD Nursing Assessment of Patient Stability Risk: Moderately stable Recommendations Forward: -A & O x4. Slight slurred speech. difficulty with R hand coordina tion. R eye field cut. -Heparin gtt: next draw at 0815 -L neck wound, did the wound care and dressing applied. -Monitor for pain at the L neck: norco and APAP available -Ambulates with close SBA -Monitor BP. PRN PO hydralazine for SBP >190 - is at bedside. Barriers to discharge: Pending clinical course: Angio 10/08 documented in this enco unter Plan of Treatment Not on filedocumented as [...] | e | 10:11 AM | left MAIL CLERK BILLS stroke | procedure are in the | | | | PDT | (HCC) | results section. | + +--------+ + + + | ACT, POC | Routin | 10/09/2018 | Acute ischemic | Results for this | | | e | 9:54 AM | left MAIL CLERK BILLS stroke | procedure are in the | | | | PDT | ([facility]) | results section. | + +--------+ + + + | CAPILLARY BLOOD | Routin | 10/09/2018 | Acute ischemic | Results for this | | GLUCOSE (NO CHG), | e | 5:46 AM | left MAIL CLERK BILLS stroke | procedure are in the | | POC | | PDT | ([facility]) | results section. | + +--------+ + [...] | e | 10:14 PM | left MAIL CLERK BILLS stroke | procedure are in the | | POC | | PDT | (HCC) | results section. | + +--------+ + + + | CAPILLARY BLOOD | Routin | 10/08/2018 | Acute ischemic | Results for this | | GLUCOSE (NO CHG), | e | 5:06 PM | left MAIL CLERK BILLS stroke | procedure are in the | | POC | | PDT | (HCC) | results section. | + +--------+ + + + | CAPILLARY BLOOD | Routin | 10/08/2018 | Acute ischemic | Results for this | | GLUCOSE (NO CHG), | e | 1:09 PM | left MAIL CLERK BILLS stroke | procedure are in the | | POC | | PDT | ([facility]) | results section. | + +--------+ + [...] | e | 10:04 AM | left MAIL CLERK BILLS stroke | procedure are in the | | POC | | PDT | ([facility]) | results section. | + +--------+ + [...] | e | 10:36 PM | left MAIL CLERK BILLS stroke | procedure are in the | [...] | e | 5:41 PM | left MAIL CLERK BILLS stroke | procedure are in the | [...] | e | 1:35 PM | left MAIL CLERK BILLS stroke | procedure are in the | | POC | | PDT | (HCC) | results section. | + +--------+ + + + | CAPILLARY BLOOD | Routin | 10/07/2018 | Acute ischemic | Results for this | | GLUCOSE (NO CHG), | e | 8:37 AM | left MAIL CLERK BILLS stroke | procedure are in the | | POC | | PDT | ([facility]) | results section. | + +--------+ + [...] | e | 12:47 AM | left MAIL CLERK BILLS stroke | procedure are in the | [...] | + + + + + | [facility] | [address] | [place] [address] | | | SERVICES, CORE | [address] | | | + + + [...] | | | LABORATORY | | | [facility] | | | SERVICES, | | | [...] | + + + + + | [facility] | [address] | [place] [address] | | | SERVICES, CORE | [address] | | | + + + + + CAROTID STENT PLACEMENT (10/09/2018 10:53 AM PDT) + + + | Narrative | Performed At | + + + | Hermann Sommer MD 10/09/2018 12:11 PM [facility] | | [facility] Division of the | | | [facility] Note Date: 10/09/2018 Admission Date: | | | 10/06/2018 GUILHERME JORGE, Hospital Day #3 | | | [...] | | | Attending(s): Rubén Mulligan MD Finisher Plate(s): Hermann Sommer MD | | | Preoperative Diagnosis: [...] dopplers in 1 month | | | Hermann Sommer MD Neuro IR | | + [...] | | PRIMARY SURGEON(S): Rubén Mulligan M.D. DIRECTOR OF DESIGN SURGEONS(S): | | | Hermann Sommer M.D. ANESTHESIA: Moderate sedation was administered | | | by a Neuro control manager under direct attending | | | physician [...] 5F Anders catheter; | | | 6F KarthikCeltro Adia guide catheter; 4-7 mm EmboShield Nav6 distal [...] 10/02 who suffered a left MCA and MAIL CLERK BILLS | | | stroke on 10/04/2018. LICA stenosis with MAIL CLERK BILLS identified on | | | imaging. Initiated [...] | | | performed for the 6F Factorlibuki catheter over a StorLiquidM wire | | | maintained in the [...] was introduced through the | | | Rustoriabuki guide catheter and navigated across the left [...] | stenting though a small degree of yaz-mhcm-hpdhcuka stenosis persists. | | | Control angiography [...] | MD Isaak 10/16/2018 11:08 AM Preliminary: Hermann Sommer | | | 10/09/2018 1:27 PM Dictation initiated: Hermann Sommer 10/09/2018 | | | 11:45 AM | | + + + + + | Procedure Note | + + | Service Account, Radiant Res In Interface - 10/16/2018 11:09 AM PDT NEUROANGIOGRAM | | AND CAROTID STENT REPORT DATE OF PROCEDURE: 10/09/2018 DIAGNOSIS: Left middle cerebral | | artery stroke + left internal carotid artery stenosis OPERATION: Left carotid stent | | PRIMARY SURGEON(S): Rubén Mulligan M.D. DIRECTOR OF DESIGN SURGEONS(S):Hermann Sommer M.D. | | ANESTHESIA:Moderate sedation was administered by a Neuro control manager | | under direct attending physician supervision.Total supervised sedation time: 100 | | minutesIV midazolam: 2 mgIV fentanyl: 100 mcg FLUOROSCOPY TIME: 19.6 minutes | | COMPLICATIONS:none apparent MATERIALS EMPLOYED: Ultrasound; 19g needle; Check-Robbie | | Hemostasis Device; 035 145 cm baby J wire; 035 300 cm Storq wire; 035 180 cm Glidewire; | | 5F Anders catheter; 6F tolingo guide catheter; 4-7 mm EmboShield Nav6 distal | | protection device; 4 x 40 mm Rkishna monorail balloon; 5 x 20 mm Krishna [...] 10/02 who suffered a left MCA and MAIL CLERK BILLS stroke | | on 10/04/2018. LICA stenosis with MAIL CLERK BILLS identified on imaging. Initiated on a | [...] was performed for the 6F | | Asahi Fubuki catheter over a Storq wire maintained in the external carotid artery under | | fluoroscopy. The Asahi Fubuki catheter was positioned in the mid [...] though a small | | degree of orx-yxlb-lfkfcrqf stenosis persists. Control angiography of the intracranial [...] Rubén Mulligan MD 10/16/2018 11:08 AM Preliminary: Hermann Sommer | | 10/09/2018 1:27 PM Dictation initiated: Hermann Sommer 10/09/2018 11:45 AM | + + + +---------+ + + | Performing | Address | City/State/Zipcode | Phone Number | | Organization | | | | + +---------+ + + | [facility] | | | | | VOICE RECOGNITION 2 | | | | + +---------+ + + ACT, POC (10/09/2018 10:11 AM PDT) + +-------+ + [...] | [facility] | [address] | [place], [place] | | | COTY MOMIN OF CARE | [address] | [address] | | | TESTS | | | [...] - | | | | | | RA | | | | | | COTY [...] | [facility] | [address] | [place], [place] | | | COTY MOMIN OF CARE | [facility] | [address] | | | TESTS | | | | + + + + + CAPILLARY BLOOD GLUCOSE (NO CHG), POC (10/09/2018 5:46 AM PDT) + +-------+ + + + | Component | Value | Ref Range | Performed | Pathologist | | | | | At | Signature | + +-------+ + + + | BLOOD | 78 | 60 - 99 mg/dL | [facility] [...] + | [facility] | [address] | [place], [place] | | | MERRILL POINT OF CARE | [address] | [address] | | | TESTS | | | [...] [facility] | [address] [facility] | [place] [address] | | | SERVICES, CORE | [address] [...] | | | LABORATORY | | | [facility] | | | SERVICES, | | | [...] the MDRD equation recommended by the | [facility] | | National Kidney Disease Education Program. [...] HOSPITAL LABORATORY | [address] | [place] [address] | | | SERVICES, CORE | [address] | | | + + + + + CAPILLARY BLOOD GLUCOSE (NO CHG), POC (10/08/2018 10:14 PM PDT) + +-------+ + + + | Component | Value | Ref Range | Performed | Pathologist | | | | | At | Signature | + +-------+ + + + | BLOOD | 81 | 60 - 99 mg/dL | [facility] [...] + | [facility] | [address] | [place], [place] | | | COTY MOMIN OF CARE | [facility] | [address] | | | TESTS | | | [...] | [facility] | [address] | [place], [place] | | | COTY MOMIN OF CARE | [address] | [address] | | | TESTS | | | [...] + + | [facility] | [address] | [place], [place] | | | [facility] | [address] | [address] | | | TESTS | | | [...] Douglas M.D. | RECOGNITION 2 | | DIRECTOR OF DESIGN SURGEONS(S): Hermann Sommer M.D. ANESTHESIA: Moderate | | | sedation was administered by a Neuro control manager under | | | direct attending physician [...] 10/10/2018 | | | 8:49 AM Preliminary: Hermann Sommer 10/09/2018 1:18 PM Dictation | | | initiated: Hermann Sommer 10/08/2018 12:12 PM | | + + + + + | Procedure Note | + + | Service Account, Radiant Res In Interface - 10/10/2018 8:50 AM PDT DATE OF | | PROCEDURE: 10/08/2018 DIAGNOSIS: Left MCA stroke + left internal carotid artery stenosis | | OPERATION: diagnostic cerebral angiogram PRIMARY SURGEON(S): Ryan Douglas M.D. | | DIRECTOR OF DESIGN SURGEONS(S):Hermann Sommer M.D. ANESTHESIA:Moderate sedation was administered | | by a Neuro control manager under direct attending physician | | supervision.Total [...] the patient directed me to proceed. INDICATIONS:Guilherme Birgit | | Luisito is a 63 y.o. [...] | MD Misael 10/10/2018 8:49 AM Preliminary: Hermann Sommer 10/09/2018 1:18 PM | | Dictation initiated: Hermann Sommer 10/08/2018 12:12 PM | | | |I have personally reviewed the images and, if necessary, edited the report. I agree with th e report as now presented. | | | |Final signature: Ryan Douglas MD 10/10/2018 8:49 AM | |Preliminary: Hermann Sommer 10/09/2018 1:18 PM | |Dictation initiated: Hermann Sommer 10/08/2018 12:12 PM | + + [...] | [facility] | [address] | [place], [place] | | | [facility] POINT OF CARE | [facility] | [address] | | | TESTS | | | [...] | | | LABORATORY | | | [facility] | | | SERVICES, | | | [...] + | [facility] | [address] [facility] | [place] [address] | | | SERVICES, [place] | [address] | | | + + + [...] | + + + + + | [facility] | [address] [facility] | [place] [address] | | | SERVICES, CORE | [address] | | | + + + [...] + | [facility] | [address] | [place] [address] | | | SERVICES, CORE | [address] | | | + + + [...] | [facility] | [address] | [place], [place] | | | MER[facility]LL POINT OF CARE | [address] | [address] | | | TESTS | | | [...] [facility] | [address] [facility] | [place] [address] | | | SERVICES, CORE | [address] | | | + + + [...] + | [facility] | [address] | [place], [place] | | | MER[facility]LL POINT OF CARE | [address] | [address] | | | TESTS | | | [...] Performed At | + ----+ + | [facility] | [facility] DEPT OF | | [facility] [address] | CARDIOLOGY | | [place], [place] [address] Ph: | | | Pt Name: GUILHERME JORGE | | | Study Date/Time 10/07/2018 / 3:46:49 PMMRN: [id number] | | | Most recent prior:Acc #: [id number] | | | No. previous echos: 0DOB: 1955 63 years Heart Rate: | | | 64 bpmHeight: 69.0 in Blood Pressure: | | | 147/86 mm/HgWeight: 175.0 lb Gender: | | | MBSA: 1.95 m | | | Order ID: [id number] Study | | | [facility] Rosalind Arndt RDCSSonographer 2:Referring | | | Provider: Hermann Vera Performed: 2D, Color flow, | | [...] Interface, Cardiology Results - 10/07/2018 5:14 PM [facility] | | [facility] [address] [place] [address] | | [place], [place] [address] Pt Name: GUILHERME Rodriguez | | LUISITO Study Date/Time 10/07/2018 / 3:46:49 PMMRN: [id number] Most | | recent prior:Acc #: [id number] No. previous echos: 0DOB: 1955 63 | | years Heart Rate: 64 bpmHeight: 69.0 in Blood Pressure: | | 147/86 mm/HgWeight: 175.0 lb Gender: MBSA: 1.95 m | | Order ID: [id number] [facility] Rosalind Arndt | | RDCSSonographer 2:Referring Provider: Hermann Vera Performed: 2D, Color | | flow, [...] + | [facility] | [address] | [place], [place] | | | CARDIOLOGY | [address] | [address] | | + + + + + [...] [facility] | [address] | [place] [address] | | | SERVICES, CORE | [address] | | | + + + [...] | | | LABORATORY | | | [facility] | + + + + + + + + | Performing | Address | City/State/Zipcode | Phone Number | | Organization | | | | + + + + + | [facility] | [address] | [place] [address] | | | [facility] | [address] | | | + + + [...] [facility] | [address] | [place] [address] | | | SERVICES, WAYLON | [address] | | | + + + + + [place] ONLY (10/07/2018 1:47 PM PDT) + + [...] | [facility] | | | GRAVITY | [place] performed by | | LABORATORY | | [...] HOSPITAL [facility] | [address] | [place] [address] | | | WAYLON BOWMAN | [address] | | | + + + + + CAPILLARY BLOOD GLUCOSE (NO CHG), POC (10/07/2018 1:35 PM PDT) + +---------+ + + + | Component | Value | Ref Range | Performed | Pathologist | | | | | At | Signature | + +---------+ + + + | BLOOD | 102 (H) | 60 - 99 mg/dL | [facility]ITY [...] | [facility] | [address] | [place], [place] | | | [facility] | [address] | [address] | | | TESTS | | | [...] + | [facility] | [address] | [place], [place] | | | COTY MOMIN OF BRIDGETT | [facility] | [address] | | | TESTS | | | [...] | + + + + + | [facility] | [address] | [place] [address] | | | WAYLON BOWMAN | [address] | | | + + + [...] | + + + + + | [facility] | [address] | [place] [address] | | | SERVICES, CORE | [address] | | | + + + [...] HOSPITAL LABORATORY | [address] | [place] [address] | | | COLBY, WAYLON | [address] | | | + + + [...] Range: (75 - 120) sec Heparin | COLBY, CORE | | levels of 0.35 - 0.7 U/mL | | + + + + + + + + | Performing | Address | City/State/Zipcode | Phone Number | | Organization | | | | + + + + + | [facility] | [address] | [place] [address] | | | WAYLON BOWMAN | [address] | | | + + + [...] mech. valves (2.5 - 3.5) INR | WAYLON BOWMAN | + + + + + + + + | Performing | Address | City/State/Zipcode | Phone Number | | Organization | | | | + + + + + | [facility] | [address] | [place] [address] | | | SERVICES, WAYLON | [address] | | | + + + [...] | [facility] | | considered for monitoring fci glycemic control in patients with: | LABORATORY [...] [facility] | [address] | [place] [address] | | | SERVICES, SPECIAL | [address] | | | | IMM + [...] | + + + + + | [facility] | [address] [facility] | [place] [address] | | | SERVICES, CORE | [address] | | | + + + [...] | | | LABORATORY | | | KAZAKH | | | SERVICES, | | | [...] + + | Performing | Address | City/State/[facility] | Phone Number | | Organization | | | | + + + + + | [facility] | [address] | [place] [address] | | | WAYLON BOWMAN | [address] | | | + + + [...] + + | [facility] | [address] | [place], [place] | | | [facility] | [address] | [address] | | | TESTS | | | [...] | + + | Acute ischemic left MAIL CLERK BILLS stroke (HCC) Unspecified cerebral artery occlusion with [...] 19 1:08 | | | | | 10/08/18 at 1300 | | PM PDT | | | | + +-------+ +--------+---+---+ +---+---+ | | | +---+---+ + +-------+ +-------+---+---+ | clopidogrel (PLAVIX) tablet 75 | Given | 10/11/19 | 75 mg | | | | mg 75 mg, oral, DAILY, First | | 19 6:00 | | | | | dose on Tue10/09/18 at 0600, Until | | AM PDT [...] | fentaNYL (SUBLIMAZE) injection | Given | 04/07/20 | 50 mcg | | | | 25-100 mcg 25-100 mcg, | | 19 11:00 | | | | | intravenous, INTRAPROCEDURE PRN, | | AM PDT | | | | | 20 doses, Starting Tue10/08/18 at | | | | | | | 0749, Until Tue10/08/18 at 1147, | | | | | [...] PDT | | | | | dose, 10/09/18 at 1045 | | | | [...] PDT | | | | | dose, [place] 10/08/18 at 1130 | | | | | | + +-------+ +-------+---+---+ +---+---+ | | | +---+---+ + +-------+ +-------+---+---+ | lisinopril (PRINIVIL) tablet 10 | Given | 10/11/19 | 10 mg | | | | mg 10 mg, oral, DAILY, First | | 19 8:28 | | | | | dose on [facility] 10/09/18 at 1245, Until | | AM PDT [...] | | | | at 1415, Until 10/09/18 at 2237 | | | | | [...]
--- OUTSIDE RECORDS SUMMARY | ~2020-03-03 | XMS | Encounter Summary ---
Demographics + + + | Address | [address] | | | [place] [address] | + + + | Home Phone [...] [place], [place] | | | | | [address] | | + + + + + | Isabella "Tiki" | ECON | [address] | | | [place] | | [place], [place] | | | | | [address] | | + + + + + Care Team Providers + +------+ + | Care Craft Manager Name | Role | Phone | [...] + + | 08/03/ | Telephone | [facility] | Ashu Singh, DO | Other | | 2018 | | MED CTR MEDICAL | [address] [facility] | | | | | ON[facility]OGY CLIN[facility] [address] | [place] | | | | | [address] | [address] | | | | | [place] [address] | | | | | | [phone] | | | +--------+ + + + [...] [place] | | | | | | [id number] | | | | | | | | +--------+ + + + + documented as of this encounter Visit Diagnoses Not on filedocumented in this encounter
--- OUTSIDE RECORDS SUMMARY | ~2020-03-03 | XMS | Encounter Summary ---
Demographics + + + | Address | [address] | | | [place] [address] | + + + | Home Phone [...] [place], [place] | | | | | [address] | | + + + + + | Isabella "Tiki" | ECON | [address] | | | [place] | | [place], [place] | | | | | [address] | | + + + + + Care Team Providers + +------+ + | Care Hoisting Laborer Name | Role | Phone | [...] + + | 09/21/ | Hospital | [facility] | Ashu Singh DO | Basal cell carcinoma | | 2019 | Encounter | MED CTR RADIATION | [address] | (BCC) of skin of | | | | ONCOLOGY CLINIC [address] | [place] | neck (Primary Dx) | | | | [address] [place] | [address] | | | | | [place] [address] | | | | | | [phone] | | | +--------+ + + + [...] 6 Pain Quality: Stable Current pain regimen: [place] 5/325 2 tabs 4 times a day [...] this well with no signific ant pruritus. [place] has been titrated to 2 tabs 4 times a day leading to improved overall p ain control-he is now requesting a refill. I will represcribed [place] at 10 mg/325 mg 1-2 ta b [...] [place] | | | | | | [id number] | | | | | | | | +--------+ + + + + documented as of this encounter Visit Diagnoses + + | Diagnosis | + + | Basal cell carcinoma (BCC) of skin of neck - Primary | + + documented in this encounter
--- OUTSIDE RECORDS SUMMARY | ~2020-03-03 | XMS | Encounter Summary ---
Demographics + + + | Address | [address] | | | [place] [address] | + + + | Home Phone [...] [place] | | | | | [address] | | + + + + + Care Team Providers + +------+ + | Care Patient Care Associate Name | Role | Phone | + +------+ + | No Pcp Per Patient | PCP | Unavailable | + +------+ + Encounter Details +--------+--------+ + + + | Date | Type | Department | Care Team | Description | +--------+--------+ + + + | 10/06/ | Intake | Transfer Center | | | | 2019 | | [address] | | | | | | [place], | | | | | | [place] [address] | | | +--------+--------+ + + + [...]
--- OUTSIDE RECORDS SUMMARY | ~2020-03-03 | XMS | Encounter Summary ---
Demographics + + + | Address | [address] | | | [place] [address] | + + + | Home Phone [...] + + | Author | [facility] | | | and [place] | + + + | Organization | [facility] | | | [...] [place], [place] | | | | | [address] | | + + + + + | Isabella "Tiki" | ECON | [address] | | | [place] | | [place], [place] | | | | | [address] | | + + + + + Care Team Providers + +------+ + | Care Precision Instrument Maker And Repairer Name | Role | Phone | [...] + + | 11/27/ | Telephone | [facility] | Radhames Rdz | Appointment | | 2019 | | [address] | [address] | | | | | [place] | [place] | | | | | [address] | [place] [address] | | | | | [phone] | [phone] | | | | | | | [...] 11/28/2019 5:06 PM PDT----- Message from Winifred Marquez, Malariologist sent at 020 1:31 PM PDT ----- Regarding: Needs one year follow up appt. Patient needs 1 year follow up appt ~ 12/28/19. 1 YEAR FOLLOW UP (Hematuria, hx of urolithiasis) PSA, BMP PRIOR ----- Message ----- From: Evon Burden Malariologist Sent: 11/27/2019 To: Winifred Marquez Malariologist Subject: needs one year follow up appt. [...] [place] | | | | | | [id number] | | | | | | | | +--------+ + + + + documented as of this encounter Visit Diagnoses Not on filedocumented in this encounter
--- OUTSIDE RECORDS SUMMARY | ~2020-03-03 | XMS | Encounter Summary ---
Demographics + + + | Address | [address] | | | [place] [address] | + + + | Home Phone [...] + + + | Author | [facility] | | | and [place] | + + + | Organization | [facility] | | [...] [place], [place] | | | | | [address] | | + + + + + | Isabella "Tiki" | ECON | [address] | | | [place] | | [place], [place] | | | | | [address] | | + + + + + Care Team Providers + +------+ + | Care Linseed Oil Order Filler Name | Role | Phone | + +------+ + | No, Physician | PCP | Unavailable | + +------+ + Encounter Details +--------+ + + + + | Date | Type | Department | Care Team | Description | +--------+ + + + + | 05/17/ | Hospital | [facility] | Yeni Carly | Recurrent basal cell | | 2019 | Encounter | MED [facility] RAD[facility] | MD Paulette [address] | carcinoma (Primary | | | | ONCOLOGY CLINIC [address] | [place], [place] | Dx) | | | | [facility] | [address] | | | | | [place] [address] | | | | | | [phone] | | | +--------+ + + + [...] [place] | | | | | | [address] | | | | | | | | +--------+ + + + + documented as of this encounter Visit Diagnoses + + | Diagnosis | + + | Recurrent basal cell carcinoma - Primary Basal cell carcinoma of skin, site | | unspecified | + + documented in this encounter
--- OUTSIDE RECORDS SUMMARY | ~2020-03-03 | XMS | Encounter Summary ---
Demographics + + + | Address | [address] | | | [place] [address] | + + + | Home Phone | | + + + | Preferred Language | Unknown | + + + | Marital Status | | + + + | Latter Day Affiliation | Unknown | + + + [...] [place], [place] | | | | | [address] | | + + + + + | Isabella "Tiki" | ECON | [address] | | | [place] | | [place], [place] | | | | | [address] | | + + + + + Care Team Providers + +------+ + | Care Military Cook Name | Role | Phone | + +------+ + | No, Physician | PCP | Unavailable | + +------+ + Encounter Details +--------+ + + + + | Date | Type | Department | Care Team | Description | +--------+ + + + + | 05/24/ | Hospital | [facility] | Yeni Carly | Recurrent basal cell | | 2019 | Encounter | MED CTR RADIATION | MD Paulette [address] | carcinoma (Primary | | | | ONCOLOGY CLINIC [address] | [place], [place] | Dx) | | | | [facility] | [address] | | | | | [place] [address] | | | | | | [phone] | | | +--------+ + + + [...] [place] | | | | | | [address] | | | | | | | | +--------+ + + + + documented as of this encounter Visit Diagnoses + + | Diagnosis | + + | Recurrent basal cell carcinoma - Primary Basal cell carcinoma of skin, site | | unspecified | + + documented in this encounter
--- OUTSIDE RECORDS SUMMARY | ~2020-03-03 | XMS | Encounter Summary ---
Demographics + + + | Address | [address] | | | [place] [address] | + + + | Home Phone | | + + + | Preferred Language | Unknown | + + + | Marital Status | | + + + | Islam Affiliation | Unknown | + + + | Race | White | + + + | Ethnic Group | Not or | + + + Author + + + | Author | [facility] | | | and [place] | + + + | Organization | [facility] | [...] [place], [place] | | | | | [address] | | + + + + + | Isabella "Tiki" | ECON | [address] | | | [place] | | [place], [place] | | | | | [address] | | + + + + + Care Team Providers + +------+ + | Care Assistant Case Manager Name | Role | Phone | [...] | | ONCOLOGY CLINIC [address] | [facility] [place] | | | | | [address] | [address] | | | | | [place] [address] | | | | | | [phone] | | | +--------+ + + + [...] pain regimen: Emla cream, worse at night. [place] added Chemotherapy: No systemic therapy Assessment: Guilherme Merino completed the planned course of course of external beam radiation therap y without any unexpected complications or breaks. Treatment tolerance: Good. He developed expected moderate radiation dermatitis with deep e rythema, no desquamation. Reported significant tenderness, treated with EMLA and [place]. Mo derate radiation-related fatigue. Disease response to [...] MD Radiation Oncologist Department of Radiation Oncology [facility] documented in this encounter Plan of Treatment +--------+ + + + + | Date | Type | Specialty | Care Team | Description | +--------+ + + + + | 03/26/ | Appointment | Radiation Oncology | Papito Alvarez MD | | | 2019 | | | [address] [facility] | | | | | | [place] | | | | | | [address] | | | | | | | | +--------+ + + + + documented as of this encounter Visit Diagnoses + + | Diagnosis | + + | Recurrent basal cell carcinoma - Primary Basal cell carcinoma of skin, site | | unspecified | + + documented in this encounter
--- OUTSIDE RECORDS SUMMARY | ~2020-03-03 | XMS | Encounter Summary ---
Demographics + + + | Address | [address] | | | [place] [address] | + + + | Home Phone | | + + + | Preferred Language | Unknown | + + + | Marital Status | | + + + | Yarsanism Affiliation | NRP | + + + [...] [place] | | | | | [address] | | + + + + + Care Team Providers + +------+ + | Care Product Steward Name | Role | Phone | + [...] Pharmacy | | | | | | [address] | | | | | | [place], [place] | | | | | | [address] | | | | | | [phone] | | | +--------+ + + + [...]
--- OUTSIDE RECORDS SUMMARY | ~2020-03-03 | XMS | Encounter Summary ---
Demographics + + + | Address | [address] | | | [place] [address] | + + + | Home Phone [...] [place] | | | | | [address] | | + + + + + Care Team Providers + +------+ + | Care Horticulture Instructor Name | Role | Phone | [...] | | | | | | [address] [facility] | | | | | | Health and Healing, | | | | | | [facility] | | | | | | Floor [place], [place] | | | | | | [address] | | | | | | [phone] | | | +--------+ + + + [...] this encounter Miscellaneous Notes Telephone Encounter - Billy Cummings - 12/24/2008 2:04 PM PDTCallback performed by Lucila munozRN elephone Encounter - Karly Veliz - 12/24/2008 10:50 AM PDTPhoned pt to check status after surgery. Pt states jamar t he is sore. States he is taking hydrocodone and it is effective for pain. States he has no questions regarding wound care. Will call with any questions or problems. Will see his local MD in 1-2 weeks. dodeirdre mg in this encounter Plan of Treatment Not on filedocumented as of this encounter Visit Diagnoses Not on filedocumented in this encounter"
--- OUTSIDE RECORDS SUMMARY | ~2020-03-03 | XMS | Encounter Summary ---
Demographics + + + | Address | [address] | | | [place] [address] | + + + | Home Phone [...] [place], [place] | | | | | [address] | | + + + + + | Isabella "Tiki" | ECON | [address] | | | [place] | | [place], [place] | | | | | [address] | | + + + + + Care Team Providers + +------+ + | Care Snow Blower Name | Role | Phone | + +------+ + | Alen Bolanos MD | PCP | | + +------+ + Encounter Details +--------+ + + + + | Date | Type | Department | Care Team | Description | +--------+ + + + + | 08/09/ | Hospital | [facility] | Ashu Singh DO | | | 2019 | Encounter | MED CTR RADIATION | [address] | | | | | ONCOLOGY [address] | [place] | | | | | [place], | [address] | | | | | [place] [address] | | | | | | [phone] | | | +--------+ + + + [...] [place] | | | | | | [address] | | | | | | | | +--------+ + + + + documented as of this encounter Visit Diagnoses Not on filedocumented in this encounter
--- OUTSIDE RECORDS SUMMARY | ~2020-03-03 | XMS | Encounter Summary ---
Demographics + + + | Address | [address] | | | [place] [address] | + + + | Home Phone | | + + + | Preferred Language | Unknown | + + + | Marital Status | | + + + | Anabaptism Affiliation | NRP | + + + | Race | White | + + + | Ethnic Group | Not or | + + + Author + + + | Author | [facility] | + + + | Organization | [facility] | + + + | Address | Unknown | + + + | Phone | Unavailable | + + + Support + + + + + | Name | Relationship | Address | Phone | + + + + + | Alanna Merino | DAT | [address] | | | | | [place] | | | | | [address] | | + + + + + Care Team Providers + +------+ + | Care Shaft Headman Name | Role | Phone | + [...] Pharmacy | | | | | | [address] | | | | | | [place], [place] | | | | | | [address] | | | | | | [phone] | | | +--------+ + + + [...]
--- OUTSIDE RECORDS SUMMARY | ~2020-03-03 | XMS | Encounter Summary ---
Demographics + + + | Address | [address] | | | [place] [address] | + + + | Home Phone [...] [place], [place] | | | | | [address] | | + + + + + | Isabella "Tiki" | ECON | [address] | | | [place] | | [place], [place] | | | | | [address] | | + + + + + Care Team Providers + +------+ + | Care Ladle Watcher Name | Role | Phone | + [...] | | | ONCOLOGY CLINIC [address] | [facility] [place] [place] | | | | | [address] | [address] | | | | | [place] [address] | | | | | | [phone] | | | +--------+ + + + [...] pain regimen: Emla cream, worse at night. [place] added Chemotherapy: No systemic therapy Assessment: Guilherme Merino completed the planned course of course of external beam radiation therap y without any unexpected complications or breaks. Treatment tolerance: Good. He developed expected moderate radiation dermatitis with deep e rythema, no desquamation. Reported significant tenderness, treated with EMLA and [place]. Mo derate radiation-related fatigue. Disease response to [...] MD Radiation Oncologist Department of Radiation Oncology [facility] documented in this encounter Plan of Treatment [...] [place] | | | | | | [address] | | | | | | | | +--------+ + + + + documented as of this encounter Visit Diagnoses + + | Diagnosis | + + | Recurrent basal cell carcinoma - Primary Basal cell carcinoma of skin, site | | unspecified | + + documented in this encounter
--- OUTSIDE RECORDS SUMMARY | ~2020-03-03 | XMS | Encounter Summary ---
Demographics + + + | Address | [address] | | | [place] [address] | + + + | Home Phone | | + + + | Preferred Language | Unknown | + + + | Marital Status | | + + + | Adventist Affiliation | NRP | + + + [...] [place] | | | | | [address] | | + + + + + Care Team Providers + +------+ + | Care Community Support Specialist Name | Role | Phone | [...] + + | 11/29/ | Refill | [facility] | Deion Sommer, | Refill Request | | 2019 | | [facility] | [address] | | | | | [facility] | [address] | | | | | [address] | [place], [place] | | | | | [address] | [address] | | | | | [facility], | [phone] | | | | | floor [place], [place] | | | | | | [address] | | | | | | [phone] | | | +--------+--------+ + + + [...]
--- OUTSIDE RECORDS SUMMARY | ~2020-03-03 | XMS | Encounter Summary ---
Demographics + + + | Address | [address] | | | [place] [address] | + + + | Home Phone | | + + + | Preferred Language | Unknown | + + + | Marital Status | | + + + | Quaker Affiliation | NRP | + + + [...] [place] | | | | | [address] | | + + + + + Care Team Providers + +------+ + | Care Major Case Detective Name | Role | Phone | + [...] | | | | [address] | [facility] [place] | | | | | Mailcode: OP06 | [address] | | | | | Outpatient Clinic | [phone] | | | | | [facility], Room 4[address] | | | | | | [place], [place] | | | | | | [address] | | | | | | [phone] | | | +--------+ + + + [...] | | | | | MNT) | [id number] OF | | | | | | SPECIMEN:B FIRST TISSUE | | | | | | [place] [address] | | | | | | CLINICAL [...] IV | | | | | | [address]-HHS[place] TISSUE [place]EV[place] | | | | | | [place] [address] | | | | + + + + + + + + | Specimen | + + | | + + + + + + + | Performing | Address | City/State/Zipcode | Phone Number | | Organization | | | | + + + + + | [facility] | Mailcode [address] | [place] [address] | | | DERMATOPATHOLOGY | [address] | | | + + + + + documented in this encounter Visit Diagnoses Not on filedocumented in this encounter"
--- OUTSIDE RECORDS SUMMARY | ~2020-03-03 | XMS | Encounter Summary ---
Demographics + + + | Address | [address] | | | [place] [address] | + + + | Home Phone | | + + + | Preferred Language | Unknown | + + + | Marital Status | | + + + | Hoahaoism Affiliation | NRP | + + + | Race | White | + + + | Ethnic Group | Not or | + + + Author + + + | Author | [facility] | + + + | Organization | [facility] | + + + | Address | Unknown | + + + | Phone | Unavailable | + + + Support + + + + + | Name | Relationship | Address | Phone | + + + + + | Alanna Merino | DAT | [address] | | | | | [place] | | | | | [address] | | + + + + + Care Team Providers + +------+ + | Care Clamshell Operator Name | Role | Phone | [...] | | [address] [facility] | | | | | | Health and Healing, | | | | | | [facility] | | | | | | Floor [place], [place] | | | | | | [address] | | | | | | [phone] | | | +--------+ + + + [...]
--- OUTSIDE RECORDS SUMMARY | ~2020-03-03 | XMS | Encounter Summary ---
Demographics + + + | Address | [address] | | | [place] [address] | + + + | Home Phone [...] [place], [place] | | | | | [address] | | + + + + + | Isabella "Tiki" | ECON | [address] | | | [place] | | [place], [place] | | | | | [address] | | + + + + + Care Team Providers + +------+ + | Care Twister Frame Tender Name | Role | Phone | [...] + + | 10/16/ | Telephone | [facility] | Ashu Singh, DO | Other | | 2018 | | MED CTR MEDICAL | [address] [facility] | | | | | ONCOLOGY CLINIC [address] | [place] | | | | | [address] | [address] | | | | | [place] [address] | | | | | | [phone] | | | +--------+ + + + [...] called, pts neck wound is still bleeding. [facility] adoredawn farnaz can't get him in until the . KRISTI was really concerned and so is she. The wound s pecialist compared it to a burn patient. He is on a blood thinner and of course that's not helping. She is very concerned. [phone] asks for call documented in this encou [...] [place] | | | | | | [address] | | | | | | | | +--------+ + + + + documented as of this encounter Visit Diagnoses Not on filedocumented in this encounter
--- OUTSIDE RECORDS SUMMARY | ~2020-03-03 | XMS | Encounter Summary ---
Demographics + + + | Address | [address] | | | [place] [address] | + + + | Home Phone | | + + + | Preferred Language | Unknown | + + + | Marital Status | | + + + | Anabaptism Affiliation | NRP | + + + | Race | White | + + + | Ethnic Group | Not or | + + + Author + + + | Author | [facility] | + + + | Organization | [facility] | + + + | Address | Unknown | + + + | Phone | Unavailable | + + + Support + + + + + | Name | Relationship | Address | Phone | + + + + + | Alanna Merino | DAT | [address] | | | | | [address] | | | | | [address] | | + + + + + Care Team Providers + +------+ + | Care Mimeographer Name | Role | Phone | + [...] [address] | | | | | [facility] | [address] | | | | | [address] | [place], [place] | | | | | [facility] | [address] | | | | | [facility], | [phone] | | | | | [place] [address] | | | | | | [phone] | | | +--------+ + + + [...] - 10/16/2018 3:10 PM [facility]urn[facility] They had received prescriptions for aspirin [...]
--- OUTSIDE RECORDS SUMMARY | ~2020-03-03 | XMS | Encounter Summary ---
Demographics + + + | Address | [address] | | | [place] [address] | + + + | Home Phone [...] + | Author | [facility] | | | and [place] | + + + | Organization | [facility] | | | [...] [place], [place] | | | | | [address] | | + + + + + | Isabella "Tiki" | ECON | [address] | | | [place] | | [place], [place] | | | | | [address] | | + + + + + Care Team Providers + +------+ + | Care Tube Station Attendant Name | Role | Phone | [...] CTR RADIATION | [address] [facility] | | | | | ONCOLOGY CLINIC [address] | [place] | | | | | [address] | [address] | | | | | [place] [address] | | | | | | [phone] | | | +--------+--------+ + + + [...] notified of this. elephone Encou nter - Dainelle Robb RN - 09/04/2018 1:24 PM PSTTherapist [...] [place] | | | | | | [address] | | | | | | | | +--------+ + + + + documented as of this encounter Visit Diagnoses + + | Diagnosis | + + | Recurrent basal cell carcinoma Basal cell carcinoma of skin, site unspecified | + + documented in this encounter
--- OUTSIDE RECORDS SUMMARY | ~2020-03-03 | XMS | Encounter Summary ---
Demographics + + + | Address | [address] | | | [place] [address] | + + + | Home Phone | | + + + | Preferred Language | Unknown | + + + | Marital Status | | + + + | Buddhist Affiliation | NRP | + + + | Race | White | + + + | Ethnic Group | Not or | + + + Author + + + | Author | [facility] | + + + | Organization | [facility] | + + + | Address | Unknown | + + + | Phone | Unavailable | + + + Support + + + + + | Name | Relationship | Address | Phone | + + + + + | Alanna Merino | DAT | [address] | | | | | [address] | | | | | [address] | | + + + + + Care Team Providers + +------+ + | Care Admitting Manager Name | Role | Phone | + +------+ + | No Pcp Per Patient | PCP | Unavailable | + +------+ + Encounter Details +--------+ + + + + | Date | Type | Department | Care Team | Description | +--------+ + + + + | 11/22/ | Documentati | [facility] | Deion Sommer, | | | 2019 | on | [facility] | [address] | | | | | [facility] | [address] | | | | | [address] | [place], [place] | | | | | [place]don[place] | [address] | | | | | [facility], | [phone] | | | | | floor [place], [place] | | | | | | [address] | | | | | | [phone] | | | +--------+ + + + [...]
--- OUTSIDE RECORDS SUMMARY | ~2020-03-03 | XMS | Encounter Summary ---
Demographics + + + | Address | [address] | | | [place] [address] | + + + | Home Phone [...] + + + | Alanna Merino | DTA | [address] | | | | | [address] | | | | | [address] | | + + + + + Care Team Providers + +------+ + | Care Other Wood Processing Machine Operator Name | Role | Phone [...] of skin | | | | CH16D [facility] | | | | | | Health and Healing, | | | | | | [facility] 1, | | | | | | Floor [place], [place] | | | | | | [address] | | | | | | [phone] | | | +--------+ + + + [...] Kelsi Bird MD - 12/23/2008 2:57 PM [facility]-All Wounds -Apply ice over the surgical site [...] the day before How to Reach Us [phone] Toll-free [phone] Evenings and Weekends: [phone] documented in this encounter Progress Notes Lia [...] neck SURGEON: Steve De La Cruz M.D. RESILIENT TILE INSTALLER: Boy Gomes MD and Kelsi Bird MD [...] neck SURGEON: Steve De La Cruz M.D. RESILIENT TILE INSTALLER: Boy Gomes MD and Kelsi Bird MD [...] CLOSURE SURGEON: Steve De La Cruz M.D. RESILIENT TILE INSTALLER: Boy Gomes MD and Kelsi Bird MD [...] procedure. Billy Medellin - 12/03 8:58 AM [id number] 2gm po given per vo KL with [...] | + + +--------+ + + | [place] EDGARD,1 | Procedures | Routin | Other Malignant | Ordered: 12/23/2008 | | STAGE,H/N/HF/G | | e | Neoplasm of Scalp | | | | | | and Skin of Neck | | + + +--------+ + + | [place] EDGARD ADDL STAGE | Procedures | Routin | Other Malignant | Ordered: 12/23/2008 | | | | e | Neoplasm of Scalp | | | | | | and Skin of Neck | | + + +--------+ + + | [place] REPR CMPL WND | Procedures | Routin | Other Malignant | Ordered: 12/23/2008 | | HEAD,FAC,HAND | | e | Neoplasm of Scalp | | | 2.6-7.5 | | | and Skin of Neck | | + + +--------+ + + | [place] | Procedures | Routin | Other Malignant [...]
--- OUTSIDE RECORDS SUMMARY | ~2020-03-03 | XMS | Encounter Summary ---
Demographics + + + | Address | [address] | | | [place] [address] | + + + | Home Phone [...] Author | [facility] | + + + | Organization | [facility] | + + + | Address | Unknown | + + + | Phone | Unavailable | + + + Support + + + + + | Name | Relationship | Address | Phone | + + + + + | Alanna Merino | DAT | [address] | | | | | [address] | | | | | [address] | | + + + + + Care Team Providers + +------+ + | Care Near East Archeology Professor Name | Role | Phone | + [...] | | | | | [place], | | | | | | [place] [address] | | | +--------+--------+ + + + [...]
--- OUTSIDE RECORDS SUMMARY | ~2020-03-03 | XMS | Encounter Summary ---
Demographics + + + | Address | [address] | | | [place] [address] | + + + | Home Phone [...] [place], [place] | | | | | [address] | | + + + + + | Isabella "Tiki" | ECON | [address] | | | [place] | | [place], [place] | | | | | [address] | | + + + + + Care Team Providers + +------+ + | Care Wellness Educator Name | Role | Phone | [...] [place] | | | | | [address] | [place] [address] | | | | | [phone] | [phone] | | | | | | | [...] Miscellaneous Notes Telephone Encounter - Winifred Marquez Affiliate Marketing Manager - 12/20/2018 2:55 PM PDTFaxed request for results. Electronically signed by Ken Francisco at 2018 2:55 PM PDTTelephone Encounter - Sonia Marx RN - 12/07/2018 4:38 [address] PDTSt An dexter's called to say he needs labs prior to CT. Orders entered and faxed to [facility], confirmation received. elephone Encounter - Winifred Marquez Affiliate Marketing Manager - 12/07/2018 3:29 PM PDT Notified patient and his CT scan had been authorized. Number for [facility] was provided to schedule CT appt. Patient and were notified to call us to reschedule if CT could not be scheduled prior to Tuesday's appt. elephone Encounter - Winifred Marquez Med ical Pressure Vessel Inspector - 12/04/2018 2:30 PM PDTUnable to leave message. CT scan has been authorized and is ready to be scheduled. Order faxed to [facility] in [place]. Electronic ally signed by Ken Francisco at 12/04/2018 2:32 PM PDTdocumented in this encounter Plan of Treatment +--------+ + + + + | Date | Type | Specialty | Care Team | Description | +--------+ + + + + | 03/26/ | Appointment | Radiation Oncology | Papito Alvarez MD | | | 2019 | | | [address] [facility] | | | | | | [place] | | | | | | [address] | | | | | | | [...]
--- OUTSIDE RECORDS SUMMARY | ~2020-03-03 | XMS | Encounter Summary ---
Demographics + + + | Address | [address] | | | [place] [address] | + + + | Home Phone [...] [place], [place] | | | | | [address] | | + + + + + | Isabella "Tiki" | ECON | [address] | | | [place] | | [place], [place] | | | | | [address] | | + + + + + Care Team Providers + +------+ + | Care Registered Nurse Surgical Services Name | Role | Phone | + [...] | | ONCOLOGY CLINIC [address] | [place], [place] | | | | | [address] [place] | [address] | | | | | [place] [address] | | | | | | [phone] | | | +--------+ + + + [...] conclusion of therapy was 6/10 managed by [place] 10/325 one to 2 tablets every 6 [...] DO Radiation Oncologist Department of Radiation Oncology [facility] This note was transcribed using [employer] speech recognition software. As a result, there [...] [place] | | | | | | [address] | | | | | | | | +--------+ + + + + documented as of this encounter Visit Diagnoses Not on filedocumented in this encounter
--- OUTSIDE RECORDS SUMMARY | ~2020-03-03 | XMS | Encounter Summary ---
Demographics + + + | Address | [address] | | | [place] [address] | + + + | Home Phone [...] | Author | [facility] | | | and [place] | + + + | Organization | [facility] | | | [...] [place], [place] | | | | | [address] | | + + + + + | Isabella "Tiki" | ECON | [address] | | | [place] | | [place], [place] | | | | | [address] | | + + + + + Care Team Providers + +------+ + | Care Health Facilities Surveyor Name | Role | Phone | + [...] + + | 01/15/ | Telephone | [facility]OLOG[facility] | Radhames Rdz | Results | | 2019 | | [address] | [address] | | | | | [place] | [place] | | | | | [address] | [place] [address] | | | | | [phone] | [phone] | | | | | | | [...] [place] | | | | | | [address] | | | | | | | | +--------+ + + + + documented as of this encounter Visit Diagnoses Not on filedocumented in this encounter
--- OUTSIDE RECORDS SUMMARY | ~2020-03-03 | XMS | Clinical Summary ---
Demographics + + + | Address | [address] | | | [place] [address] | + + + | Home Phone [...] [place] | | | | | [address] | | + + + + + Care Team Providers + +------+ + | Care Filament Cutter Name | Role | Phone | + +------+ + | No Pcp Per Patient | PCP | Unavailable | + +------+ + Source Comments KRISTI is fully live on both [facility] Ambulatory and [facility] InPatient.[facility] Allergies No Known Allergies Medications + [...] , 10/06. Has | | been intermittent. [place]-dark red blood observed, no clots. UA | [...] | wound gently with warm wet gauze. Thermal periwound skin with | | Cavilon skin [...] +---------+--------+ +--------+ +---------+--------+ | | [employer]ICAR | [id number] | 10/07/19 | [phone] | | Indemn | | | E [...] [place] | | | 5 (Home) | [address] | | | | | | [phone] | | | | | | | 4 (Work) | | + +--------+ +--------+ + + Advance Directives + + + + + | Type | Date Recorded | Patient | Explanation | | | | [employer] Law Clerk | | + + + + + | Advance | | | | | Directives and | | | | | Living Will | | | | + + + + + | Power of | | | | | Floor Worker [place] | | | | + + + [...]
--- OUTSIDE RECORDS SUMMARY | ~2020-03-03 | XMS | Encounter Summary ---
Demographics + + + | Address | [address] | | | [place] [address] | + + + | Home Phone [...] [place], [place] | | | | | [address] | | + + + + + | Isabella "Tiki" | ECON | [address] | | | [place] | | [place], [place] | | | | | [address] | | + + + + + Care Team Providers + +------+ + | Care Group Director Experience Name | Role | Phone | + [...] + + | 08/14/ | [facility] | Ashu Singh DO | Medication Refill | | 2018 | | MED CTR MEDICAL | [address] [facility] | | | | | ONCOLOGY CLINIC [address] | [place] | | | | | [address] | [address] | | | | | [place] [address] | | | | | | [phone] | | | +--------+--------+ + + + [...] [place] | | | | | | [address] | | | | | | | | +--------+ + + + + documented as of this encounter Visit Diagnoses + + | Diagnosis | + + | Recurrent basal cell carcinoma - Primary Basal cell carcinoma of skin, site | | unspecified | + + documented in this encounter
--- OUTSIDE RECORDS SUMMARY | ~2020-03-03 | XMS | Encounter Summary ---
Demographics + + + | Address | [address] | | | [place] [address] | + + + | Home Phone | | + + + | Preferred Language | Unknown | + + + | Marital Status | | + + + | Restorationist Affiliation | NRP | + + + [...] [place] | | | | | [address] | | + + + + + Care Team Providers + +------+ + | Care Animal Stunner Name | Role | Phone | + [...] | 2009 | Visit | Medical at [facility] [address] | MD [address] | Unspecified Nature, | | | | [address] | [facility] [place] | Site Unspecified | | | | for Health and | [address] | (Primary Dx) | | | | [facility], Building 1, | [phone] | | | | | 16th Floor | | | | | | [place], [place] | | | | | | [address] | | | | | | [phone] | | | +--------+---------+ + + + [...] all BCC. Call & send to [facility] ally signed by Hanna Jimenez MD at [...] this encounter. HANNA JIMENEZ MD MEDICAL DERMATOLOGY [address] Mail Code: [address] [place] [address] [address] [...] l neck lesion REFERRING PHYSICIAN: Dr. Mason ([place]) HISTORY OF PRESENT ILLNESS: Guilherme Merino is [...] skin lesions Meds and Allegies listed in [facility] The patient intake was reviewed including medications, [...] Cristobal Luna MD Resident, Department of Dermatology [facility] documented in this e ncounter Miscellaneous Notes [...] | + + +--------+ + + | LA BIOPSY OF SKIN | Procedures | Routin | Neoplasm of | Ordered: 11/07/2008 | | LESION | | e | Unspecified Nature, | | | | | | Site Unspecified | | + + +--------+ + + | LA BIOPSY, EACH | Procedures | Routin | Neoplasm of | Ordered: 11/07/2008 | | ADDED LESION | | e | Unspecified Nature, | | | | | | Site Unspecified | | + + +--------+ + + | LA BIOPSY, EACH | Procedures | Routin | [...]
--- OUTSIDE RECORDS SUMMARY | ~2020-03-03 | XMS | Encounter Summary ---
Demographics + + + | Address | [address] | | | [place] [address] | + + + | Home Phone [...] Alanna Merino | ECON | [address] | | | | | [place], [place] | | | | | [address] | | + + + + + | Isabella "Tiki" | ECON | [address] | | | [place] | | [place], [place] | | | | | [address] | | + + + + + Care Team Providers + +------+ + | Care Cook Fish And Chips Name | Role | Phone | + [...] | | | | | | [place] [address] | [place], [place] | | | | | | Phone: | [address] | | | | | | [phone] | Phone: | | | | | | Fax: | [phone] | | | | | | [phone] | Fax: | | | | | | | [phone] | +--------+ + + + + + [...] | | | | Procedures | [address] | [address] | | | | | [address] | [place], | [place], | | | | | | [place] | [place] [address] | | | | | | [address] | Phone: | | | | | | Phone: | [phone] | | | | | | [phone] | Fax: | | | | | | Fax: | [phone] | | | | | | [phone] | | +--------+--------+ + + + + Encounter Details +--------+ + + + + | Date | Type | Department | Care Team | Description | +--------+ + + + + | 01/08/ | Hospital | [facility] | Ashu Singh DO | Recurrent basal cell | | 2019 | Encounter | MED CTR RADIATION | [address] | carcinoma (Primary | | | | ONCOLOGY CLINIC [address] | [place] | Dx); Malignant | | | | [address] [place] | [address] | neoplasm of skin | | | | [place] [address] | | | | | | [phone] | | | +--------+ + + + [...] He is a pleasant 63-year-old gentleman from [facility] who has a long-standing history of basal cell carcinoma involving his left neck. He has extensive sun exposure while working in the [employer] being first diagnosed with a left n jai basal cell carcinoma in 1997 that was described as superficial. Subsequent recurrence i n 2001 describes a sclerosing basal cell carcinoma at which time Mohs surgery was performed at [facility]. He returned again in 2008 to undergo [...] ICA stent placed October 09, [address] [facility]. He has been followed by Dr. Deion Sommer at [facility] in [place], [place] for further management having last been [...] Recommendation/Plan: 1. Recurrent basal cell carcinoma - [facility] - AMB Referral 2. [...] PRATIMA Radiation Oncologist Department of Radiation Oncology [facility] This note was transcribed using [employer] speech recognition software. As a result, there [...] [place] | | | | | | [address] | | | | | | | [...]
--- OUTSIDE RECORDS SUMMARY | ~2020-03-03 | XMS | Encounter Summary ---
Demographics + + + | Address | [address] | | | [place] [address] | + + + | Home Phone [...] + + | Author | [facility] | | | and [place] | + + + | Organization | [facility] | | | and [...] [place], [place] | | | | | [address] | | + + + + + | Isabella "Tiki" | ECON | [address] | | | [place] | | [place], [place] | | | | | [address] | | + + + + + Care Team Providers + +------+ + | Care Compressor Operator Portable Name | Role | Phone | + [...] | | | | Procedures | [address] [place] | [place] | | | | | [address] | [place], | [place], | | | | | | [place] | [place] [address] | | | | | | [address] | Phone: | | | | | | Phone: | [phone] | | | | | | [phone] | Fax: | | | | | | Fax: | [phone] | | | | | | [phone] | | +--------+--------+ + + + + Encounter Details +--------+ + + + + | Date | Type | Department | Care Team | Description | +--------+ + + + + | 12/23/ | Hospital | [facility] | Silke Garcia | Recurrent basal cell | | 2020 | Encounter | MED CTR RADIATION | EMILY Sykes [address] | carcinoma (Primary | | | | ONCOLOGY CLINIC [address] | [address] [place] | Dx) | | | | [address] [place] | [place] [address] | | | | | [place] [address] | [phone] | | | | | [phone] | | | +--------+ + + + [...] exposure in his lifetime, working in the [employer]. 01/30/1998- biopsy done basal cell carcinoma, superficial type 05/01/2002- Biopsy done basal cell carcinoma, sclerosing type. Status post MOHS surgery @ [facility] 11/07/2008- Biopsy done basal cell carcinoma. Status post additional MOHS surgery @ [facility] 06/02/2018- Brain MRI following a witnessed seizure; no evidence of metastases. 07/12/2018- PET/CT scan; moderate uptake in the region of basal cell carcinoma left anterior neck, no evidence of metastatic disease. 07/19/18- Consult with Dr. Funk at [facility] in [facility]. 08/01/18- Consult with Dr. Singh 09/04/18-10/02/18- Radiation therapy here at [facility] 55 Gy in 20 fractions. Excellent response wi th resolution of ulcerated mass at anterior left low neck. 10/09/18-left carotid stenting w/neurointerventional radiology 04/05/19-Dominique Montague @ [facility] Dermatology Biopsies done- No recurrence in [...] cancer, being treated by Dr. Funk in [place]. Mr. Jorge feels well. He states he [...] 10/09/2018 MOHS SURGERY 2001 & 2009 @ [facility] SKIN CANCER EXCISION TONSILLECTOMY VASECTOMY Family [...] file Gets together: Not on file Attends jain service: Not on file Active member of [...] to transfer his c are to a software solutions architect in [place]. He will be referred. Plan His questions and concerns were answer to his satisfaction. He understands the plan of care as outlined below and agrees. 1. Refer patient to software solutions architect in [place]. Nursing agrees to look at his insurance [...] EMILY Hernández, AOCNP Department of Radiation Oncology [facility] Office: [phone] documented in this encounter Plan of Treatment [...] [place] | | | | | | [address] | | | | | | | | +--------+ + + + + documented as of this encounter Visit Diagnoses + + | Diagnosis | + + | Recurrent basal cell carcinoma - Primary Basal cell carcinoma of skin, site | | unspecified | + + documented in this encounter
--- OUTSIDE RECORDS SUMMARY | ~2020-03-03 | XMS | Encounter Summary ---
Demographics + + + | Address | [address] | | | [place] [address] | + + + | Home Phone [...] [place], [place] | | | | | [address] | | + + + + + | Isabella "Tiki" | ECON | [address] | | | [place] | | [place], [place] | | | | | [address] | | + + + + + Care Team Providers + +------+ + | Care Financial Reporting Manager Name | Role | Phone | + +------+ + | Alen Bolanos MD | PCP | | + +------+ + Encounter Details +--------+ + + + + | Date | Type | Department | Care Team | Description | +--------+ + + + + | 08/09/ | Hospital | [facility] | Ashu Singh DO | | | 2019 | Encounter | MED CTR RADIATION | [address] | | | | | ONCOLOGY [address] | [place] | | | | | [place], | [address] | | | | | [place] [address] | | | | | | [phone] | | | +--------+ + + + [...] [place] | | | | | | [address] | | | | | | | | +--------+ + + + + documented as of this encounter Visit Diagnoses Not on filedocumented in this encounter
--- OUTSIDE RECORDS SUMMARY | ~2020-03-03 | XMS | Encounter Summary ---
Demographics + + + | Address | [address] | | | [place] [address] | + + + | Home Phone [...] | [facility] | | | and [place] | + + + | Organization | [facility] | | | [...] [place], [place] | | | | | [address] | | + + + + + | Isabella "Tiki" | ECON | [address] | | | [place] | | [place], [place] | | | | | [address] | | + + + + + Care Team Providers + +------+ + | Care Skilled Nursing Facilities Professional Name | Role | Phone | + +------+ + | No, Physician | PCP | Unavailable | + +------+ + Encounter Details +--------+ + + + + | Date | Type | Department | Care Team | Description | +--------+ + + + + | 11/15/ | Hospital | [facility] | Deion Sommer, | History of ischemic | | 2019 | Encounter | MED CTR ULTRASOUND | [address] | left MCA stroke; | | | | [address] [place] | [address] | Stenosis of left | | | | [place], [place] | [place], [place] | carotid artery | | | | [address] | [address] | | | | | [phone] | [phone] | | | | | | | [...] [place] | | | | | | [address] | | | | | | | [...] without hemodynamically significant stenosis. | | | Ajzx-oe-fghsjgie calcified plaque is seen involving the left [...] the right carotid bulb and proximal ICA [id number]% without hemodynamically | | significant stenosis.Fxpi-vj-cuotrzxq calcified plaque is seen involving the left [...] without hemodynamically significant stenosis. | | | |Zivb-uk-ctrfawpq calcified plaque is seen involving the left [...]
--- OUTSIDE RECORDS SUMMARY | ~2020-03-03 | XMS | Encounter Summary ---
Demographics + + + | Address | [address] | | | [place] [address] | + + + | Home Phone | | + + + | Preferred Language | Unknown | + + + | Marital Status | | + + + | Alevism Affiliation | NRP | + + + | Race | White | + + + | Ethnic Group | Not or | + + + Author + + + | Author | [facility] | + + + | Organization | [facility] | + + + | Address | Unknown | + + + | Phone | Unavailable | + + + Support + + + + + | Name | Relationship | Address | Phone | + + + + + | Alanna Merino | DAT | [address] | | | | | [address] [place] | | | | | [address] | | + + + + + Care Team Providers + +------+ + | Care Oracle Ebs Developer Name | Role | Phone | [...] + + | 11/20/ | Refill | [facility] | Mariposa Avila, | Refill Request | | 2019 | | [facility] [place] | RN [address] | | | | | [facility] | [address]iv [place] | | | | | [address] | [place], [place] | | | | | [place]don[place] | [address] | | | | | [facility], | | | | | | floor [place], [place] | | | | | | [address] | | | | | | [phone] | | | +--------+--------+ + + + [...]
--- OUTSIDE RECORDS SUMMARY | ~2020-03-03 | XMS | Encounter Summary ---
Demographics + + + | Address | [address] | | | [place] [address] | + + + | Home Phone [...] [place], [place] | | | | | [address] | | + + + + + | Isabella "Tiki" | ECON | [address] | | | [place] | | [place], [place] | | | | | [address] | | + + + + + Care Team Providers + +------+ + | Care Horse Breeder Name | Role | Phone | + [...] | | | [facility] CL[facility] [address] | [place], [place] | neck (Primary Dx) | | | | [facility] | [address] | | | | | [place] [address] | | | | | | [phone] | | | +--------+ + + + [...] [place] | | | | | | [address] | | | | | | | | +--------+ + + + + documented as of this encounter Visit Diagnoses + + | Diagnosis | + + | Basal cell carcinoma (BCC) of skin of neck - Primary | + + documented in this encounter
--- OUTSIDE RECORDS SUMMARY | ~2020-03-03 | XMS | Encounter Summary ---
Demographics + + + | Address | [address] | | | [place] [address] | + + + | Home Phone [...] [place] | | | | | [address] | | + + + + + Care Team Providers + +------+ + | Care Carbide Tool Die Maker Name | Role | Phone | [...] | | | | | ischemic | [address] | | | | | | left MCA | [address] | | | | | | stroke | Oscar Maldonado | | | | | | Stenosis of | [place], [place] | | | | | | left | [address] | | | | | | internal | Phone: | | | | | | carotid | [phone] | | | | | | artery | Fax: | | | | | | Procedures | [phone] | | | | | | CONSULT [...] | ischemic | [address] | [address] | | | | | left ACTUARIAL INTERNSHIP | Walker Chaney | [address] | | | | | stroke (HCC) | [place]donado | Joel | | | | | Procedures | [place], [place] | [place], [place] | | | | | CONSULT TO | [address] | [address] | | | | | NEUROLOGY | Phone: | Phone: | | | | | | [phone] | [phone] | | | | | | Fax: | Fax: | | | | | | [phone] | [phone] | +--------+--------+ + + + + Encounter Details +--------+---------+ + + + | Date | Type | Department | Care Team | Description | +--------+---------+ + + + | 11/09/ | Office | [facility] | Deion Sommer, | History of ischemic | | 2019 | Visit | [facility] [place] | [address] | left MCA stroke | | | | [facility] | [address] | (Primary Dx); | | | | [address] | [place], [place] | Stenosis of left | | | | Oscar Maldonado [place] | [address] | internal carotid | | | | [facility], | [phone] | artery | | | | floor [place], [place] | | | | | | [address] | | | | | | [phone] | | | +--------+---------+ + + + [...] seeing you today. Please send me a [facility] Message if you have any questions or concerns. Deion Sommer MD Vascular Neurology [facility] Department of Neurology [facility] and [address] [place] [address] documented in this encounter Progress Notes Deion [...] a transfer on 10/06/2018 for a left MCA/ACTUARIAL INTERNSHIP te rritory stroke related to left carotid artery stenosis. Initially presented to the Emergency Department in [place], [place] after waking the AM of with right upper extremity weakness, dysarthria, and aphasia. Discharged home [facility] returned on 10/05/2018 with progressive symptoms. CTA with severe left internal carotid artery stenosis just distal to the bifurcation and left variant ACTUARIAL INTERNSHIP. MRI demonstrate d left parietal/occipital ischemic strokes [...] oriented to person, , November 07()2018, 330pm(130pm), [place], no neglect , no aphasia, following commands [...] level mild right ICA stenosis variant left [employer]IAL [employer]NS[employer] MRI BRAIN left MCA, ACT[employer]IAL INTERNSHIP, and left hemispheric watershed ischemic strokes OTHER [...] for comparison. Assessment: Recurrent left MCA and ACTU[employer]IAL INTERNSHIP ischemic strokes. Etiology LICA stenosis. Suspect stenosis [...] carotid duplex ultrasound to be completed in [place]. Return to driving would require formal visual field assessment and formal driving safety ev aluation by occupational therapy. Urology outpatient evaluation for hematuria surrounding hospitalization not completed and w ill be pursued via external referral in [place]. Plan: continue aspirin 325mg for LIFE continue atorvastatin 40mg daily lipid panel today secondary stroke prevention goals for primary care LDL < 70, HbA1c < 7.0, SBP < 140 external referral for carotid duplex US - [place] external referral for Urology evaluation - [place] NO DRIVING - requires formal VF evaluation + OT driving evaluation tobacco cessation with primary care follow-up visit in 6 months I spent 33 minutes with the patient. Greater than 50% of the time was spent counseling the patient regarding left MCA/ACTUARIAL INTERNSHIP ischemic stroke and left internal carotid stenosis. [...] KRISTI GLEASON | [address] | [place] [address] | | | SERVICES, CORE | OSCAR [...]
--- OUTSIDE RECORDS SUMMARY | ~2020-03-03 | XMS | Encounter Summary ---
Demographics + + + | Address | [address] | | | [place] [address] | + + + | Home Phone [...] [place], [place] | | | | | [address] | | + + + + + | Isabella "Tiki" | ECON | [address] | | | [place] | | [place], [place] | | | | | [address] | | + + + + + Care Team Providers + +------+ + | Care Barn Boss Name | Role | Phone | + [...] + + | 08/08/ | Hospital | [facility] | Ashu Singh DO | | | 2019 | Encounter | MED CTR [address] | [address] | | | | | [place], | [place] | | | | | [place] [address] | [id number] | | | | | [phone] | | | +--------+ + + + [...] | Appointment | Radiation Oncology | Papito Alavrez MD | | | 2019 | | | [address] | | | | | | [place] | | | | | | [address] | | | | | | | [...]
--- OUTSIDE RECORDS SUMMARY | ~2020-03-03 | XMS | Encounter Summary ---
Demographics + + + | Address | [address] | | | [place] [address] | + + + | Home Phone | | + + + | Preferred Language | Unknown | + + + | Marital Status | | + + + | Synagogue Affiliation | Unknown | + + + | Race | White | + + + | Ethnic Group | Not or | + + + Author + + + | Author | [facility] | | | and [place] | + + + | Organization | [facility] | | | [...] [place], [place] | | | | | [address] | | + + + + + | Isabella "Tiki" | ECON | [address] | | | [place] | | [place], [place] | | | | | [address] | | + + + + + Care Team Providers + +------+ + | Care General Matcher Name | Role | Phone | + +------+ + | Alen Bolanos MD | PCP | | + +------+ + Encounter Details +--------+ + + + + | Date | Type | Department | Care Team | Description | +--------+ + + + + | 09/06/ | Hospital | [facility] | Ashu Singh DO | | | 2019 | Encounter | MED CTR RADIATION | [address] | | | | | ONCOLOGY [address] | [place] | | | | | [place], | [address] | | | | | [place] [address] | | | | | | [phone] | | | +--------+ + + + [...] [place] | | | | | | [id number] | | | | | | | | +--------+ + + + + documented as of this encounter Visit Diagnoses Not on filedocumented in this encounter
--- OUTSIDE RECORDS SUMMARY | ~2020-03-03 | XMS | Encounter Summary ---
Demographics + + + | Address | [address] | | | [place] [address] | + + + | Home Phone [...] [place], [place] | | | | | [address] | | + + + + + | Isabella "Tiki" | ECON | [address] | | | [place] | | [place], [place] | | | | | [address] | | + + + + + Care Team Providers + +------+ + | Care Hearing Aid Repairer Name | Role | Phone | + +------+ + | No, Physician | PCP | Unavailable | + +------+ + Encounter Details +--------+ + + + + | Date | Type | Department | Care Team | Description | +--------+ + + + + | 05/04/ | Hospital | [facility] | Yeni Carly | | | 2019 | Encounter | MED CTR RADIATION | MD Paulette [address] | | | | | ONCOLOGY [address] | [facility] [place], [place] | | | | | [place], | [address] | | | | | [place] [address] | | | | | | [phone] | | | +--------+ + + + [...] [place] | | | | | | [id number] | | | | | | | | +--------+ + + + + documented as of this encounter Visit Diagnoses Not on filedocumented in this encounter
--- OUTSIDE RECORDS SUMMARY | ~2020-03-03 | XMS | Encounter Summary ---
Demographics + + + | Address | [address] | | | [place] [address] | + + + | Home Phone [...] Author + + + | Author | [facility] | | | and [place] | + + + | Organization | [facility] | | [...] [place], [place] | | | | | [address] | | + + + + + | Isabella "Tiki" | ECON | [address] | | | [place] | | [place], [place] | | | | | [address] | | + + + + + Care Team Providers + +------+ + | Care Transcription Specialist Name | Role | Phone | [...] | | | | carcinoma | [place] [address] | [place], [place] | | | | | (BCC) of | Phone: | [phone] | | | | | skin of neck | [phone] | Phone: | | | | | | Fax: | [phone] | | | | | | [phone] | Fax: | | | | | | | [phone] | +--------+ + + + + + Encounter Details +--------+ + + + + | Date | Type | Department | Care Team | Description | +--------+ + + + + | 10/02/ | Hospital | [facility] | Ashu Singh DO | Recurrent basal cell | | 2019 | Encounter | MED CTR RADIATION | [address] | carcinoma (Primary | | | | ONCOLOGY CLINIC [address] | [place] | Dx); Basal cell | | | | [address] [place] | [id number] | carcinoma (BCC) of | | | | [facility] [place] [address] | | skin of neck | | | | [phone] | | | +--------+ + + + [...] [place] | | | | | | [id number] | | | | | | | [...]
--- OUTSIDE RECORDS SUMMARY | ~2020-03-03 | XMS | Encounter Summary ---
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 | | | | | left MARBLE CHIP TERRAZZO WORKER | Walker Chaney | for Health | | | | | stroke (HCC) | Giselle Maldonado | and Healing, | | | | | Procedures | [place], [place] | [address], | | | | | SPEECH | [address] | 1st Floor | | | | | THERAPY | Phone: | [place], [place] | | | | | REFERRAL | [phone] | [address] | | | | | | Fax: | Phone: | | | | | | [phone] | [phone] | | | | | | | Fax: | | | | | | | [phone] | +--------+--------+ + + + + Occupational [...] | ischemic | [address] | [facility] | | | | | left MARBLE CHIP TERRAZZO WORKER | Walker Chaney | for Health | | | | | stroke (HCC) | Giselle Maldonado | and Healing, | | | | | Procedures | [facility] [place] | Building [address], | | | | | | [address] | 1st Floor | | | | | OCCUPATIONAL | Phone: | [place], [place] | | | | | THERAPY | [phone] | [address] | | | | | REFERRAL | Fax: | Phone: | | | | | | [phone] | [phone] | | | | | | | Fax: | | | | | | | [phone] | +--------+--------+ + + + + Physical [...] | ischemic | [address] | [address] | | | | | left MARBLE CHIP TERRAZZO WORKER | Walker Chaney | for Health | | | | | stroke (HCC) | [address] | and Healing, | | | | | Procedures | [place], [place] | [address], | | | | | PHYSICAL | [address] | 1st Floor | | | | | THERAPY | Phone: | [place], [place] | | | | | REFERRAL | [phone] | [address] | | | | | | Fax: | Phone: | | | | | | [phone] | [phone] | | | | | | | Fax: | | | | | | | [phone] | +--------+--------+ + + + + Reason [...] | | | 10/10/ | | [facility] [place], | [place], [place] | | | 2018 | | [place] [address] | [address] | | | | | [phone] | [phone] | | | | | | | [...] distal to the bifurcation, L feta l 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 MRI demonstrating L parietooccipital ischemia/watershed infarct. He was started on heparin gtt and transferred for consideration of carotid stent vs CEA. 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 Patient doing well from stroke and ABHAY standpoint. Should plan to follow up in 1 month. Can consider [facility] for stroke follow up. 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 Ryan Douglas M.D. Director [place] [facility] Neurology documented in this encounter Discharge Instructions Instructions Shirley Chamorro COMPLIANCE FIELD TECHNICIAN - 10/07/2018Formatting of this note might be [...] recovery from National Stroke Association. Visit http://www.st Vaxxas.org/ or call 6-889-LIDOEHM ( ). ? The [place] Stroke Association Family "Warmline" 1-637-0-STROKE ( ). ? Contact your local stroke [...] CRISIS LINES: -24/01 National Suicide Prevention Lifeline 3-220-716-TALK (6417) Hearing and Speech Impaired 5-497-741-4TTY (1216) http://www.suicidepreventionlifeline.org/ -24/01 Mental Health Treatment Referral Line 2-439-679-HELP (8783) http://www.[facility].gov/treatment/LibbyJASONQs.aspx -Veterans Crisis Line , press 1 Http://www.veteranscrisisline.net/ [...] your senior or day center, you r jain community, or any other community in which [...] service which conn ects the people of [place] and [facility] with the community resources they need. 2 [employer] Home Instead (222.902.8721) This is a [employer] which can provide in home assistance at a cost to the family. [place] Project Marshall OPI is a program which helps seniors 60 and over continue to live independently and safely living in their own home. OPI provides individualized personal care, housekeeping, and case management support. http://www.[place].gov/dhs/spwpd/pages/ltc/inhome.aspx#opi [place] Independent Living Resources: [place] Statement Of Independent Living Resources: Promote the philosophy of Independent L iving by creating opportunities, encouraging choices, advancing equal access, and furthering the level of independence for all people with disabilities. [phone] [place] [employer] [facility] (711.392.9329) Services are targeted to people who are not Medicaid eligible. The [facility] sil[facility]ira has information about in-home care, how [...] 60 and older. Seniors must live in [facility] in [place] or [facility] in [place] to be eligible to receive meal s. Call to request meals at [phone] in [facility] and [facility] and toll free in [facility] at . Most of the [facility] in [place] have a Meals on Wheels Program, and information on local [facility] md-xd-oginyo services can be obtained through local Area Agency on Aging Offices. [place] Vocational Rehabilitation Service (OVRS) ( ) http://www.[place].gov/DHS /vr/Pages/index.aspx [place] Area Agency on Aging http://www.[place].gov/dhs/spwpd/pages/offices.aspx There are 17 Area Agencies on Aging across [place] that administer and support community-bas ed care services. AAAs advocate for older adults living in their area, develop community-based long-term care services to meet the needs of those adults and administer funds to implement services. Most services coordinated by AAAs are provided through community service providers at the local level. This section contains program information designed for staff members of [place]'s AAAs . Aging and Disability Resource Connection of [place] https://adrcoforegon.org/qavmsj-dubylsq-wrh-independent-living.php [facility] is a resource directory for [place] families, caregivers and consumers seekin g information about long-term supports and services. Here you will find quick and easy acces s to resources in your community. If you cannot find the information you are looking for or wish to talk to someone in person, please call us toll free at 8-070-[facility] (3-081-780-849 2) [place] Caregiver Support Line http://www.caregiver.va.gov/ Toll free : Also check with your private health insurance organization, as respite care may also be inc luded in the coverage. Support Groups for Families Living with Aphasia Individuals and families affected by aphasia face unique challenges. Support specifically d esigned for these people is limited. Three groups have formed in the [place], [place] area t hat provide both the individual experiencing aphasia and family members the opportunity to d evelop a sense of community with others impacted by aphasia. These groups are organized and run by participants. Faculty and students from [facility] s Department of S peech and Hearing [...] groups in the [facility] for individuals and families living wit h aphasia: [place] Continuous Improvement Group When: Each Tuesday 11:00 12:00 Where: [facility] [address] [place] [address]. Contact: Alfonso Garcia Jennyfer [email or web address] KIMBERLY [place] Speak EZ group When: Odd numbered Saturdays (i.e. July 08) 10:00 12:00 Where: [facility] [place] [facility] [address] Contact: Lenin Wiggins [phone] [facility] Aphasia Group When: & Tuesday of each month 10:00 12:00 Where: [facility] Room varies watch for directional signs Contact: Samreen Zenajajarod [phone] [email or web address] The [employer] A community music group for stroke survivors. Stroke survivors, spouses, partners, and care givers are invited to join for an hour of playing instruments and singing. Every Tuesday, 11:30-12:30 at the [facility], [address] [place] [address]. Info rmation contact: Carmen Moore, , Brain Injury Hadley of [place] http://www.biaoregon.org/ National Stroke Association http://www.stroke.org/ .STROKES (787.8944) National Center on Caregiving/ Family Caregiver Hadley www.caregiver.org Established in 2000 as a program of Family Caregiver Hadley, the National Center on Careg iving (NCC) works to advance the development of high-quality, cost-effective policies and pr ograms for caregivers in every state in the country. Uniting research, public policy and ser vices, the [facility] serves as a central source [...] personal medical concerns. County Crisis Line Information: [facility] Access Crisis Number (days) or (after hours) [facility] Mental Health Program Access or Crisis Number [facility] Access Crisis Number [facility] Access Crisis Number [facility] Mental Health, [facility]. Access Crisis Number or (after hours) [facility] Mental Health Program Access Crisis Number (24 hours) [facility] Program Access Crisis Number (after hours) [facility] Mental Health Program Access Crisis Number [facility] Mental Health Services Access Crisis Number (24 hours) or [facility] and Director Of Online Education Dept. Access Crisis Number [facility] for Living Branch Office Access Crisis Number 911 [facility] [employer] Access Crisis Number or 911 [facility] Counseling & Guidance Service Access Crisis Number [facility] for Living Access Crisis Number [facility] Human Services Access Crisis Number [facility] Mental Health Program Access Crisis Number (24 hours) [facility] Mental Health Programs Access Crisis Number (24 hours) [facility] Access Crisis Number Community Health and Human Services Access Crisis Number [facility] Access Crisis Number (24 hours) [facility] Mental Health Program Access Crisis Number (days) (after hours) [facility] Mental Health Access Crisis Number (days) (after hours) [facility] Behavioral Health Access Crisis Number [facility] Access Crisis Number BLACK/ABBOTT Behavioral Health Access Crisis Number [facility] Human Services Access Crisis Number Toll-free at [facility] Mental Health Access Crisis Number (days) (after hours) [facility] for Living Access Crisis Number [facility] Center Access Crisis Number or [facility] Behavioral Health Access Crisis Number (24 hours) [facility] [employer] Access Crisis Number [facility] Access Crisis Number [facility] for Living Access Crisis Number (after hours) [facility] Mental Health Access Crisis Number ABBOTT/BLACK Behavioral Health Access Crisis Number 911 [facility] [place] Family [...] Care Unit Attending Progress Note Attending Pager #[phone] Hospital admission dx: stroke Days in ICU [...] stenosis just distal to the bifurcation, L 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 MRI demonstrating L parietoo ccipital ischemia/watershed [...] Provider Role Specialty Ipt Critical Care Nsicu #[id number] Treatment Team Ipt Mt2 49479 Treatment Team Ipt Neuro Stroke #74863 Treatment Team Neurology Code Status Code Status [...] ons/additions as noted. Date of Service: 10/09/2018 [facility] DEPARTMENT: ANE ICU NEURO Place of Service:- Inpatient CSN: [id number] Suggested Modifier: GC - Resident Involved Suggested CPT: TO LIBRARY ASSOCIATE Author:ELIANA GRANADOS MD [place] [phone] eber, Hermann Coates MD - 10/09/2018 1:41 PM PDT [facility] INTERVENTIONAL NEURORADIOLOGY Division of the [facility] Attending Physician: Misael Note [...] and care plan outlined in the greenhouse or nursery transplanter's n ote and have personally examined the [...] stenosis just distal to the bifurcation, 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 MRI demonstrating L pa rietooccipital ischemia/watershed infarct. [...] level mild right ICA stenosis variant left MARBLE CHIP TERRAZZO WORKER MRI BRAIN left MCA, MARBLE CHIP TERRAZZO WORKER, and left hemispheric watershed ischemic strokes DIAGNOSTIC [...] exams available for comparison. Assessment: Left MCA, MARBLE CHIP TERRAZZO WORKER, and left hemispheric watershed strokes on 10/04/2018. [...] 1 month atorvastatin 40mg daily telemetry monitoring TRAVELING OPERATOR /PT/OT Social Work "stroke protocol" MOCA eval today Ryan Douglas M.D. Director [place] Department of Neurology [facility] Interventional Instittue Lisseth Ferguson MD - [...] with severe L ICA stenosis and L 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 Facial Paresis (Show teeth, raise eyebrows [...] Telemetry: NSR Swallow: pass Antithrombotic/anticoagulant: ASA 81 POST PARTUM NURSE PT/OT/TRAVELING OPERATOR: home with assist Assessment and Plan: 63 yo man with symptomatic L ICA stenosis with MARBLE CHIP TERRAZZO WORKER transferred for consideration of C EA versus stent. No tPA due to time. Most likely atherosclerotic in etiology. Exam with impr ovement in RUE drift otherwise stable. Given patient has L neck wound and recent radiation therapy to that region, radiation necro sis on differential, however, CT neck 10/06 reviewed with radiology who had low suspicion of i nfiltrative process. 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 Has been intermittent. [facility]-dark red blood observed, no clots. 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 MRI demonstrating L pa rietooccipital ischemia/watershed infarct. [...] level mild right ICA stenosis variant left MARBLE CHIP TERRAZZO WORKER MRI BRAIN left MCA, MARBLE CHIP TERRAZZO WORKER, and left hemispheric watershed ischemic strokes DIAGNOSTIC [...] exams available for comparison. Assessment: Left MCA, MARBLE CHIP TERRAZZO WORKER, and left hemispheric watershed strokes on 10/04/2018. [...] with NS IVF at 75cc/hr telemetry monitoring TRAVELING OPERATOR /PT/OT Social Work "stroke protocol" I spent [...] stenosis just distal to the bifurcation, L 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 MRI demonstr ating L parietooccipital ischemia/watershed [...] man with symptomatic L ICA stenosis with MARBLE CHIP TERRAZZO WORKER transferred for consideration of C EA versus [...] #Painless Hematuria Started . Has been intermittent. [facility]-dark red blood observed, no clots. UA with [...] CRUZ MD Neurology Resident, PGY 3 Pgr [phone] Hermann Sawant MD - 10/08/2018 11:50 AM PDT [facility] INTERVENTIONAL NEURORADIOLOGY Division of the [facility] Note Date: 10/08/2018 Admission Date: 10/06/2018 GUILHERME JORGE, Hospital Day #2 BRIEF PROCEDURE NOTE Preprocedure Consent: reviewed prior to procedure Patient identity confirmed per policy Team Pause: Immediatly prior to the procedure a pause per protocol was called. A pause verifies correct patient, procedure, equipment, account support manager and site/side marked as required if indicated . Attending(s): Ryan Douglas MD Hotbed Operator(s): Hermann Sommer MD Preoperative Diagnosis: left MCA [...] stenosis just distal to the bifurcation, L 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 MRI demonstr ating L parietooccipital ischemia/watershed [...] man with symptomatic L ICA stenosis with MARBLE CHIP TERRAZZO WORKER transferred for consideration of C EA versus [...] f/u Multiple records requests placed: [facility] ([place], [place]), oncology records from [place], [place]. [facility] to fax records to [facility]k. #L neck wound s/p radiation for basal cell carcinoma Received "20x" radiation, most recently 10/02. Requested onc records. -Wound care consulted - will need careful cleaning of wound -f/u onc records #Painless Hematuria Started . Has been intermittent. [facility]-dark red blood observed, no clots. 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 MRI demonstrating L pa rietooccipital ischemia/watershed infarct. [...] level mild right ICA stenosis variant left MARBLE CHIP TERRAZZO WORKER MRI BRAIN left MCA, MARBLE CHIP TERRAZZO WORKER, and left hemispheric watershed ischemic strokes Assessment: Left MCA, MARBLE CHIP TERRAZZO WORKER, and left hemispheric watershed strokes on 10/04/2018. [...] midnight maintain hydration curbside Urology re hematuria TRAVELING OPERATOR/PT/OT Social Work "stroke protocol" I spent 72 [...] Care Unit Team H&P Note NSICU ASSIGNED #[id number] Days in ICU 3 Days in Hospital [...] stenosis just distal to the bifurcation, L 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 MRI demonstrating L parietoo ccipital ischemia/watershed [...] Cleanse wound gently with warm wet gauze. Sperry periwound skin with Cavilon skin prep. Appl [...] Painless, Started , 10/06. Has been intermittent. [facility]-dark red blood observed, no clots. UA with [...] Provider Role Specialty Ipt Critical Care Nsicu #[id number] Treatment Team Ipt Mt2 [id number] Treatment Team Ipt Neuro Stroke #42830 Treatment Team Neurology Patient Lines/Drains/Airways Status Active [...] by Shikha Cuenca MD Author:Shikha Cuenca MD [address] [id number] signed by Eliana Granados MD at 10/09/2018 9:03 PM Tara Flowers MD - 10/09/2018 6:33 AM PDTFormatting of this note might be differe nt from the original. [facility] INTER[facility]AL NEURORADIOLOGY at [facility] HISTORY AND PHYSICAL NAME: Guilherme Jorge : 1955 Guilherme Jorge is a 63 y.o. RIGHT handed male with tobacco abuse, hypertension, hyperlipid emia, and recurrent cervical basal cell carcinoma treated with MOHS and recent 20 sessions o f radiation therapy ending on 10/02 who suffered a left MCA and MARBLE CHIP TERRAZZO WORKER stroke on 10/04/2018. L ICA stenosis with MARBLE CHIP TERRAZZO WORKER identified on imaging. Initiated on a heparin [...] ed. Tara Dawson MD Neurosurgery, PGY-1 Pager [phone] [facility] Interventional Neuroradiology Hermann Sawant MD - 0 10/08/2018 10:37 AM PDT [facility] INTERVENTIONAL NEURORADIOLOGY at [facility] HISTORY AND PHYSICAL NAME: Guilherme Jorge : [...] stenosis just distal to the bifurcation, 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 MRI demonstratin g L parietooccipital ischemia/watershed infarct. [...] consent obtain ed. Hermann Sommer MD [facility] Interventional Neuroradiology documented in this e ncounter Procedure Notes Hermann Sommer MD - 10/09/2018 10:53 AM PDTAssociated Order(s): CAROTID STENT PLACEMENTP rocedure(s): CAROTID STENT PLACEMENTFormatting of this note might be different from the orig inal. [facility] INTERVENTIONAL NEURORADIOLOGY Division of the [facility] Note Date: 10/09/2018 Admission Date: 10/06/2018 GUILHERME Rodriguez LUISITO, Hospital Day #3 BRIEF PROCEDURE NOTE Preprocedure Consent: reviewed prior to procedure Patient identity confirmed per policy Team Pause: Immediately prior to the procedure a pause per protocol was called. A pause verifies correct patient, procedure, equipment, account support manager and site/side marked as required if indicated . Attending(s): Rubén Mulligan MD Hotbed Operator(s): Hermann Sommer MD Preoperative Diagnosis: left MCA [...] regarding this information please contact pharmacy, pager [phone] Thank you for the consult, Alex Yanez.D. Clinical Pharmacist [facility] Pharmacy Services Sully Rolon - 10/09/2018 9:38 AM PDTAssociated Order(s): IP CONSULT TO WOUND OSTOMYWound Consult Consulted for topical wound care recommendations for left neck s/p MOHS and radiation for BCC. Pt off the unit in IR. Chart reviewed. 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 Per gluer left neck is red and moist. Goals of care are to keep area clean and provide moist healing environment. Recommendations: Cleanse wound gently with warm wet gauze. Sperry periwound skin with Cavilon skin prep. Appl [...] just distal to the bifurca tion, L 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 MRI demonstrating L parietooccipital ischemia/watershed infarct . Started on heparin gtt and transferred to [facility] for further care. Neurosurgery consulted fo r [...] mg, 10 mg, rectal, DAILY PRN, Steph Nnace MD gabapentin (NEURONTIN) capsule 900 mg, 900 [...] stenosis just distal to the bifurcation, L 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 MRI demonstrating L parietooccipital ischemia/watershed infarct. Sta rted on heparin gtt and transferred to [facility] for further care. Given the recent left [...] Please contact the Neurosurgery resident on-call pager [phone] with questions or concerns. Jojo Rose MD Resident Physician Department of Neurosurgery Pg [phone] signed by John Rhodes MD at 10/12/2018 [...] stenosis just distal to the bifurcation, 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 MRI demonstrating L parietooccip ital ischemia/watershed infarct. [...] man with symptomatic L ICA stenosis with MARBLE CHIP TERRAZZO WORKER transferred for consid eration of CEA versus [...] Telemetry: NSR Swallow: pensing Antithrombotic/anticoagulant: ASA 81 POST PARTUM NURSE PT/OT/TRAVELING OPERATOR: pending Social Work: pending Plan: - q [...] plan. Steph Nance MD Neurology PGY-4 Pager #[phone] face documented i n this encounter Miscellaneous [...] stenosis just distal to the bifurcation, L 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 MRI de monstrating L parietooccipital ischemia/watershed [...] reach and nurse updated , at bedside. [facility] BASIC MOBILITY Difficulty turning over in bed [...] A Little - Minimal/Contact Guard Assist/Superv ision [facility] Basic Mobility Total Score 22 Assessment: Mr. Jorge continues to be at his recent baseline of performing transfers indep endently, mild standing dynamic balance impairment requiring handheld assistance during ambu lation. Interpretation of [facility] Short Form - Basic Mobility: CMS Modifier [...] as the discharge summary. ROBERTA WEINSTEIN PT #[id number] lan of Care - Deo [facility] - 10/10/2018 11:58 AM PDT Occupational Therapy Treatment 10/10/2018 11:58 AM [id number] GUILHERME JORGE Date of : 1955 Start of care: 10/06/2018 Date of onset: 10/06/2018 Referring/Attending Practitioner: Hermann Sommer MD Primary/Referral Diagnosis/ICD-9: I63.532 Acute ischemic left MARBLE CHIP TERRAZZO WORKER stroke (HCC) I63.232 Acute ischemic left ICA stroke (HCC) Insurance: Payor: [employer] / Plan: [facility] / Product Type: Indemnity / Service period: [...] earlier and was determined patient was at [facility], which is hand held assistance level. Patient's [...] Patient's stated there could be one in [place]. [facility] DAILY ACTIVITY - How much help from another person does the patient currently need f or: Lower body dressing 3 - Little Bathing 2 - Alot Toileting 3 - Little Upper body dressing 3 - Little Personal grooming 4 - None Eating meals 4 - None [facility] Daily Activity Total Score 19 1 - [...] Discharge recommend ations listed below. 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 [...] Years of education? 12+ Justin Pastranarocio MS3, [facility] P: [phone] &P Compiled Note - Shikha Hampton MD - 10/09/2018 1:05 PM PDT Genitourinary Urinary frequency Assessment & Plan Monitor UOP, may need to consider checking urine sodium. - PVR for retention/incomplete voiding. Other Hematuria Assessment & Plan Painless, Started , 10/06. Has been intermittent. [facility]-dark red blood observed, no c lots. UA [...] HematuriaPainless, Started , 10/06. Has been intermittent. [facility]-da rk red blood observed, no clots. UA [...] of Care / Advance Care NSICU ASSIGNED #[id number] Date: 10/09/18 Advanced Directives: no Healthcare Agent(s): Surrogate decision maker has been identified and is : Alanna Jorge, maira can be c ontacted at [phone]. The surrogate decision maker has been listed as the emergency contac t within [facility]. Code Status: Current Code Status Date Active Code Status Order ID Comments User Context 10/06/2018 11:49 PM Full Code [id number] Steph Nance MD Inpatient Code History: Code [...] Cleanse wound gently with warm wet gauze. [place] periwound skin with Cavilon skin prep. Appl [...] Cleanse wound gently with warm wet gauze. [place] periwound skin with Cavilon skin prep. Appl [...] continue 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 [...] below 4/10, and reported good relief with [place]. NURSING ASSESSMENT & RECOMMENDATIONS FORWARD Nursing Assessment [...] at bedside. 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 [...] angio (when it was too soon for [place]) and hasn't needed pain meds for his neck pain post o p yet. He got Fentanyl during the angio. Remind patient to try and keep his hands off of ra diation spot. NURSING ASSESSMENT & RECOMMENDATIONS FORWARD Nursing Assessment of Patient Stability Risk: Moderately stable Recommendations Forward: -NPO at [place] for CEA. See nursing communication order for [...] at bedside. Very helpful with cares - [place] - Need 3 more q1 hour angio checks, next at 1530. 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 [...] when he was touching his n jai. [place] and tylenol were given x2 with good effect. Remind patient to try and keep his chahal nds off of radiation spot. NURSING ASSESSMENT & RECOMMENDATIONS FORWARD Nursing Assessment of Patient Stability Risk: Moderately stable Recommendations Forward: -NPO at [place] for angio -A/O x4. Slight slurred speech. [...] to discharge: Pending clinical course: [facility] Shirley Chamorro MSW - 10/07/2018 7:09 PM PDT Problem: SW Goals & Interventions Intervention: Psychosocial Assessment Stroke Protocol Assessment Social Work Screening: Depression, Caregiving and Respite This screening is not required if the patient is transferring to the [place], another acute care setting, or with hospice services. Assessment completed with patient and/or family. Reason for Referral: EPIC consult; patient triggered a Social Work consult as part of [facility] Standard Stroke Protocol Process. Met with patient and spouse. Current Living Situation: Patient lives with his spouse in an historic home in [place], [place]. Current Social Supports: Spouse is Alanna, lives with patient. 40 years. Daughter Tiki lives close by a nd is a great support. Financial/Insurance status/Employment: [employer], [place]. Patient is retired [employer]. Both he and his are retired. Activities/Spirituality: Not jain Medical issues: PCP: Alen Bolanos MD Patient [...] included in AVS. 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 [...] Risk: Moderately stable Recommendations Forward: -NPO at [place] for angio -A/O x4. Slight slurred speech. 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 MRI demonstrating L parietooccipital ischemia/watershed infarct. [...] any numbness or tingling Functional performance skills [facility] DAILY ACTIVITY - How much help from another person does the patient currently need f or: Lower body dressing 3 - Little Bathing 3 - Little Toileting 3 - Little Upper body dressing 3 - Little Personal grooming 4 - None Eating meals 4 - None [facility] Daily Activity Total Score 20 1 - Unable to do/total assistance = Total/Dependent Assist 2 - A lot = Maximum/Moderate Assistance 3 - A little = Minimal/Contact Guard Assist/Supervision 4 None = Modified independent/Independent Interpretation of [facility] Short Form Daily Activity: CMS Modifier (G-Code) [...] Guilherme and family. Jojo Persaud OTR/L Pager #[phone] lan of Care - Sunshine Hinson, PT - 10/07/2018 8:12 AM PDTFormatting of this note might be different from the herman westbrook. 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 MRI de monstrating L parietooccipital ischemia/watershed infarct. [...] file. Subjective: "grumpy" Living Environment: lives in [place] with in a 3 story home, main living area on [address] floor, has not been going upstairs [...] use it. 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 Enjoys riding around to look at all the animal s and visiting with his 3 grandchildren. Denies falls. Patient / Family Goal: return home Communication: martiniquais Barriers: none identified Pain: denies Vital Signs: [...] Physical rehabilitation: assessment and treatme nt (5thed.). [place]: [facility]. 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 [...] L neck pain. Received 1 tab of [place] tonight and his pain w as relief. 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 stroke | procedure are in the | [...] | + + + + + | [facility] | [address] | [place] [address] | | | SERVICES, CORE | GISELLE [...] | | | LABORATORY | | | [place] | | | SERVICES, | | | [...] | + + + + + | [facility] | [address] | [place] [address] | | | SERVICES, CORE | [address] | | | + + + + + CAROTID STENT PLACEMENT (10/09/2018 10:53 AM PDT) + + + | Narrative | Performed At | + + + | Hermann Sommer MD 10/09/2018 12:11 PM [facility] & | | | [facility] INTERVENTIONAL NEURORADIOLOGY Division of the | | | [facility] Note Date: 10/09/2018 Admission [...] | | | Attending(s): Rubén Mulligan MD Hotbed Operator(s): Hermann Sommer MD | | | Preoperative [...] | | PRIMARY SURGEON(S): Rubén Mulligan M.D. LAST DIPPER SURGEONS(S): | | | Hermann Sommer M.D. ANESTHESIA: Moderate sedation was administered | | | by a Neuro assistant to the ceo under direct attending | | | physician [...] 5F Anders catheter; | | | 6F [employer] Adia guide catheter; 4-7 mm EmboShield Nav6 [...] 10/02 who suffered a left MCA and MARBLE CHIP TERRAZZO WORKER | | | stroke on 10/04/2018. LICA stenosis with MARBLE CHIP TERRAZZO WORKER identified on | | | imaging. Initiated [...] | | | performed for the 6F 280 [employer] catheter over a [employer] wire | | | maintained in the [...] was introduced through the | | | [employer] guide catheter and navigated across the left [...] | stenting though a small degree of tfy-duxx-nzoytgmh stenosis persists. | | | Control angiography [...] | | PRIMARY SURGEON(S): Rubén Mulligan M.D. LAST DIPPER SURGEONS(S):Hermann Sommer M.D. 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 LICA stenosis with MARBLE CHIP TERRAZZO WORKER identified on imaging. Initiated on a | [...] though a small | | degree of voa-ogov-epwfcajd stenosis persists. Control angiography of the intracranial [...] [facility] | [address] | [place], [place] | | | COTY MOMIN OF CARE | [address] | [address] | | | TESTS | | | [...] [facility] | [address] | [place], [place] | | | COTY MOMIN OF CARE | [facility] | [address] | | | TESTS | | | [...] K[facility] | [address] | [place], [place] | | | MERRILL POINT OF CARE | [address] | [address] | | | TESTS | | | [...] | + + + + + | [facility] | [address] [facility] | [place] [address] | | | SERVICES, CORE | [address] [...] | | | LABORATORY | | | [place] | | | SERVICES, | | | [...] the MDRD equation recommended by the | [facility] | | National Kidney Disease Education Program. [...] | + + + + + | [facility] | [address] | [place] [address] | | | SERVICES, CORE | GISELLE [...] 81 | 60 - 99 mg/dL | [facility] - | | | GLUCOSE, | | [...] [facility] | [address] | [place], [place] | | | COTY MOMIN OF CARE | [facility] | [address] | | | TESTS | | | [...] [facility] | [address] | [place], [place] | | | COTY MOMIN OF CARE | [address] | [address] | | | TESTS | | | [...] K[facility]STI [facility] | [address] | [place], [place] | | | [facility] [place] [facility] | [address] | [address] | | | TESTS | | | [...] VOICE | | angiogram PRIMARY SURGEON(S): Ryan Doulgas M.D. | RECOGNITION 2 | | LAST DIPPER SURGEONS(S): Hermann Sommer M.D. ANESTHESIA: Moderate | | | sedation was administered by a Neuro assistant to the ceo under | | | direct attending physician [...] artery | | | stenosis. Transferred to [facility] on a heparin infusion and aspirin 81 [...] PRIMARY SURGEON(S): Ryan Douglas M.D. | | LAST DIPPER SURGEONS(S):Hermann Sommer M.D. ANESTHESIA:Moderate sedation was administered | | by a Neuro assistant to the ceo under direct attending physician | | supervision.Total [...] carotid artery stenosis. Transferred to | | [facility] on a heparin infusion and aspirin 81 [...] [facility] | [address] | [place], [place] | | | MERRILL POINT OF CARE | [facility] | [address] | | | TESTS | | | [...] | | | LABORATORY | | | [place] | | | SERVICES, | | | [...] | + + + + + | [facility] | [address] [facility] | [place] [address] | | | SERVICES, WAYLON | GISELLE [...] | + + + + + | [facility] | [address] [facility] | [place] [address] | | | SERVICES, CORE | GISELLE [...] | + + + + + | [facility] | [address] | [place] [address] | | | SERVICES, CORE | GISELLE [...] [facility] | [address] | [place], [place] | | | MERRILL POINT OF CARE | [address] | [address] | | | TESTS | | | [...] | + + + + + | [facility] | [address] [facility] | [place] [address] | | | SERVICES, CORE | GISELLE [...] - RA | [address] | [place], [place] | | | MERRILL POINT OF CARE | [address] | [address] | | | TESTS | | | [...] Performed At | + ----+ + | [facility] | [facility] DEPT OF | | [facility]chocardi[facility] [address] | CARDIOLOGY | | [place], [place] [address] Ph: | | | Pt Name: GUILHERME JORGE | | | Study Date/Time 10/07/2018 / 3:46:49 PMMRN: [id number] | | | Most recent prior:Acc #: [id number] | | | No. previous echos: 0DOB: 1955 63 years Heart Rate: | | | 64 bpmHeight: 69.0 in Blood Pressure: | | | 147/86 mm/HgWeight: 175.0 lb Gender: | | | MBSA: 1.95 m | | | Order ID: [id number] Study | | | [facility] Rosalind Arndt RDCSSonographer 2:Referring | | [...] Interface, Cardiology Results - 10/07/2018 5:14 PM [facility] | | [facility] Echocardiography Laboratory [address] [place] [address] | | [place], [place] [address] Pt Name: GUILHERME Rodriguez | | LUISITO Study Date/Time 10/07/2018 / 3:46:49 PMMRN: [id number] Most | | recent prior:Acc #: [id number] No. previous echos: 0DOB: 1955 63 | | years Heart Rate: 64 bpmHeight: 69.0 in Blood Pressure: | | 147/86 mm/HgWeight: 175.0 lb Gender: MBSA: 1.95 m | | Order ID: [id number] Study [facility] Rosalind Arndt | | RDCSSonographer 2:Referring [...] | + + + + + | [facility]PT [facility] | [address] | [place], [place] | | | CARDIOLOGY | [address] | [address] | | + + + + + [...] | + + + + + | [facility] | [address] | [place] [address] | | | SERVICES, CORE | GISELLE [...] | + + + + + | [facility] | [address] | [place] [address] | | | WAYLON BOWMAN | GISELLE [...] [facility] | [address] | [place] [address] | | | SERVICES, WAYLON | GISELLE [...] | [facility] | | | GRAVITY | [place] performed by | | LABORATORY | | [...] | + + + + + | [facility] | [address] | [place] [address] | | | WAYLON BOWMAN | GISELLE [...] (H) | 60 - 99 mg/dL | [facility] - | | | GLUCOSE, | | [...] [facility] | [address] | [place], [place] | | | MERRILL POINT OF CARE | [address] | [address] | | | TESTS | | | [...] [facility] | [address] | [place], [place] | | | COTY MOMIN OF BRIDGETT | [facility] | [address] | | | TESTS | | | [...] | + + + + + | [facility] | [address] | [place] [address] | | | WAYLON BOWMAN | GISELLE [...] | + + + + + | [facility] | [address] | [place] [address] | | | SERVICES, CORE | GISELLE [...] | + + + + + | [facility] | [address] | [place] [address] | | | COLBY, WAYLON | GISELLE [...] [facility] | [address] | [place] [address] | | | WAYLON BOWMAN | GISELLE [...] | + + + + + | [facility] | [address] | [place] [address] | | | SERVICES, WAYLON | GISELLE [...] | [facility] | | considered for monitoring long-term glycemic control in patients with: | LABORATORY [...] [facility] | [address] | [place] [address] | | | SERVICES, SPECIAL | PARK [...] | + + + + + | [facility] | [address] [facility] | [place] [address] | | | SERVICES, CORE | GISELLE [...] | | | LABORATORY | | | [place] | | | SERVICES, | | | [...] + + | Performing | Address | City/State/[facility]code | Phone Number | | Organization | | | | + + + + + | [facility] | [address] | [place] [address] | | | WAYLON BOWMAN | GISELLE [...] K[facility]I [facility] | [address] | [place], [place] | | | [facility] | [address] | [address] | | | TESTS | | | [...] | + + | Acute ischemic left 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
--- OUTSIDE RECORDS SUMMARY | ~2020-03-03 | XMS | Encounter Summary ---
Demographics + + + | Address | [address] | | | [place] [address] | + + + | Home Phone [...] [place], [place] | | | | | [address] | | + + + + + | Isabella "Tiki" | ECON | [address] | | | [place] | | [place], [place] | | | | | [address] | | + + + + + Care Team Providers + +------+ + | Care Apartment Leasing Specialist Name | Role | Phone | + +------+ + | No, Physician | PCP | Unavailable | + +------+ + Encounter Details +--------+ + + + + | Date | Type | Department | Care Team | Description | +--------+ + + + + | 05/09/ | Hospital | [facility] | Yeni Carly | | | 2019 | Encounter | MED CTR RADIATION | MD Paulette [address] | | | | | ONCOLOGY [address] | [facility] [place], [place] | | | | | [place], | [address] | | | | | [place] [address] | | | | | | [phone] | | | +--------+ + + + [...] VOGEL | | | | | | [id number] | | | | | | | | +--------+ + + + + documented as of this encounter Visit Diagnoses Not on filedocumented in this encounter
--- OUTSIDE RECORDS SUMMARY | ~2020-03-03 | XMS | Encounter Summary ---
Demographics + + + | Address | [address] | | | [place] [address] | + + + | Home Phone [...] [place], [place] | | | | | [address] | | + + + + + | Isabella "Tiki" | ECON | [address] | | | [place] | | [place], [place] | | | | | [address] | | + + + + + Care Team Providers + +------+ + | Care Bilingual Sales Consultant Name | Role | Phone | [...] + + | 01/17/ | Telephone | [facility] | Ashu Singh DO | Other | | 2019 | | MED CTR MEDICAL | [address] [facility] | | | | | ONCOLOGY CLINIC [address] | [place] | | | | | [address] | [address] | | | | | [place] [address] | | | | | | [phone] | | | +--------+ + + + [...] VOGEL | | | | | | [id number] | | | | | | | | +--------+ + + + + documented as of this encounter Visit Diagnoses Not on filedocumented in this encounter
--- OUTSIDE RECORDS SUMMARY | ~2020-03-03 | XMS | Encounter Summary ---
Demographics + + + | Address | [address] | | | [place] [address] | + + + | Home Phone | | + + + | Preferred Language | Unknown | + + + | Marital Status | | + + + | Moravian Affiliation | NRP | + + + [...] [place] | | | | | [address] | | + + + + + Care Team Providers + +------+ + | Care Dynamometer Mechanic Name | Role | Phone | + +------+ + | Washington Mason MD | PCP | | + +------+ + Encounter Details +--------+ + + + + | Date | Type | Department | Care Team | Description | +--------+ + + + + | 11/07/ | Results | Dermatology | Ward Jimenez, | | | 2008 | Only | Medical at [facility] [address] | [address] | | | | | [address] [place] | [facility] [place] | | | | | for Health and | [address] | | | | | [facility] [address], | [phone] | | | | | 16th Floor | | | | | | [place], [place] | | | | | | [address] | | | | | | [phone] | | | +--------+ + + + [...] | | Results for this | | [facility]) | e | | | procedure are [...] | | | | | MNT) | [id number] OF | | | | | | SPECIMEN:B FIRST TISSUE | | | | | | LEVEL IV [id number] | | | | | | OF SPECIMEN:C FIRST | | | | | | TISSUE LEVEL IV | | | | | | [id number] | | | | | | DESCRIPTION:A: [...] [facility] | [address] | [place] [address] | | | DERMATOPATHOLOGY | [place] | | | + + + + + documented in this encounter Visit Diagnoses Not on filedocumented in this encounter"
--- OUTSIDE RECORDS SUMMARY | ~2020-03-03 | XMS | Encounter Summary ---
Demographics + + + | Address | [address] | | | [place] [address] | + + + | Home Phone | | + + + | Preferred Language | Unknown | + + + | Marital Status | | + + + | Gnosticism Affiliation | NRP | + + + | Race | White | + + + | Ethnic Group | Not or | + + + Author + + + | Author | [facility] | + + + | Organization | [facility] | + + + | Address | Unknown | + + + | Phone | Unavailable | + + + Support + + + + + | Name | Relationship | Address | Phone | + + + + + | Alanna Merino | DAT | [address] | | | | | [address] | | | | | [address] | | + + + + + Care Team Providers + +------+ + | Care Medical Technologist Clinical Name | Role | Phone | + [...] | internal carotid | | | | [place], [place] | | artery | | | | [address] | | | | | | [phone] | | | +--------+------+ + + + [...] | + + + + + | [facility] | [address] | [place] [address] | | | SERVICES, CORE | OSCAR [...]
--- OUTSIDE RECORDS SUMMARY | ~2020-03-03 | XMS | Encounter Summary ---
Demographics + + + | Address | [address] | | | [place] [address] | + + + | Home Phone | | + + + | Preferred Language | Unknown | + + + | Marital Status | | + + + | Samaritan Affiliation | NRP | + + + | Race | White | + + + | Ethnic Group | Not or | + + + Author + + + | Author | [facility] | + + + | Organization | [facility] | + + + | Address | Unknown | + + + | Phone | Unavailable | + + + Support + + + + + | Name | Relationship | Address | Phone | + + + + + | Alanna Merino | DAT | [address] | | | | | [address] | | | | | [address] | | + + + + + Care Team Providers + +------+ + | Care Instructor Nurse Name | Role | Phone | [...] Pharmacy | | | | | | [address] | | | | | | [address] [place], [place] | | | | | | [address] | | | | | | [phone] | | | +--------+ + + + [...]
[~2020-03-03 11:03] MED LIST changes: +ASPIRIN EC325 MG PO; +BUPROPION XL300 MG PO; +LIPITOR40 MG PO; +LISINOPRIL20 MG PO; +NORCO 7.5-3251 EACH PO
--- OUTSIDE RECORDS SUMMARY | 2020-03-03 11:06 | XMS ---
PreManage Notification: TREVER JORGE Security Cartridge Gauger Events No recent Security Events currently on file CRITERIA MET - [facility] - Has Care Guidelines - [facility] - 2 Visits in 30 Days CARE PROVIDERS Alen Bolanos [facility] 05/15/2018-Current PHONE: [phone] Name [facility] 02/22/2020-Current PHONE: [phone] Faith has no Care Guidelines for this patient. Care History Medical/Surgical 02/22/2020 [facility] \T\middot;\T\nbsp; PATIENT IS A -RECEIV[place] TH[place]OUGH [place]. \T\middot;\T\nbsp; Location: [address], [place] [address]- 05/15/2018 [facility] - PATIENT PCP DR BOLANOS MADE A REFERRAL TO A NEUROLOGIST DR NICHOLS. PATIENT DAUGHTER HOUSTON WAS TO CONTACT THE NEUROLOGIST OFFICE AND SCHEDULE AN APT. - Patient is currently established with [facility]. If patient is seen in the ED during business hours. Please contact [facility] at [facility]. Care Recommendation: This patient has [...] providing care. E.D. VISIT COUNT (12 MO.) 2 [facility] [place] TOTAL 2 NOTE: Visits indicate total known visits. ED/UCC VISIT TRACKING (12 MO.) 03/03/2020 11:03 [place] [place] TYPE: Emergency COMPLAINT: - POSS STROKE 02/21/2020 13:24 [place] TYPE: Emergency COMPLAINT: - RIB PAIN DIAGNOSES: - Fall (on) (from) unspecified stairs and steps, initial encoun - Hyperlipidemia, unspecified - Fracture of one rib, right side, initial encounter for closed - Upper abdominal pain, unspecified - Personal history of transient ischemic attack (TIA), and cere - Essential (primary) hypertension - Nicotine dependence, unspecified, uncomplicated INPATIENT VISIT TRACKING (12 MO.) No inpatient visits to display in this time frame [email or web address]
--- NOTE | 2020-03-03 15:20 | NUR ---
PATIENT ARRIVED TO UNIT VIA STRETCHER. CHANGED WET SWEATPANTS, PT DECLINED BRIEF. TELE PLACED, ASSESSMENT DONE. PATIENT HAS NOTED RIGHT SIDED WEAKNESS. DECLINES NUMBNESS/TINGLING. PASSED SWALLOW TEST, TOOK PILLS WITHOUT DIFFICULTY. SCREENED FOR MRI IN THE MORNING. PT IN BED WATCHING TV, CALL LIGHT AND PHONE IN REACH. BANDAID TO RIGHT ELBOW. DECLINES FURTHER NEEDS AT THIS TIME.
--- NOTE | 2020-03-03 17:35 | NUR ---
PATIENT RESTING IN BED. VISTING WITH IN ROOM. HIGH BP OF 174/107 AND MAP 122. BEATRIZ WHATLEY NOTIFIED. CALL LIGHT WITHIN REACH. NO FURTHER NEEDS AT THIS TIME.
--- NOTE | 2020-03-03 18:15 | NUR ---
CALLED DR POWELL REGARDING DIASTOLIC BEING OVER 100. HE STATED TO HOLD UNTIL PRN PARAMETERS ARE MET.
--- NOTE | 2020-03-03 18:35 | NUR ---
IN TO CHECK ON PATIENT, IN BED EATING DINNER. PT APPEARED TO BE STRUGGLING WITH UTENSILS, UNSTEADY HANDS. PT DISPLAYED FRUSTRATION AND STATED "MY RIGHT SIDE DOESN'T WORK" WHILE EATING. THIS RN CALLED DIETARY TO REQUESTED ADAPTIVE UTENSILS. PT ABLE TO EAT EASIER WITH WEIGHTED DEVICE. WATCHING TV. CALL LIGHT IN REACH. DECLINES FURTHER ASSISTANCE AT THIS TIME.
--- NOTE | 2020-03-03 19:05 | NUR ---
REPORT RECEIVED FROM BEATRIZ WHATLEY. pt RESTING IN BED, HOB ELEVATED, SNORING, BREATHING UNLABORED. HR 97 ON TELE, SINUS RHYTHM.
--- NOTE | 2020-03-03 20:06 | EKG ---
[facility] [address] [facility] [place], [place] [address] Signed Sinus rhythm with AV dissociation Abnormal ECG When compared with ECG of 05-OCT-2018 11:34, Vent. rate has increased BY 34 BPM Non-specific change in ST segment in Inferior leads Confirmed by ZAKIYA POWELL DO ([id number]) on 03/03/2020 8:05:52 PM Electronically Signed By: ZAKIYA POWELL DO 03/03/202005 PATIENT NAME: TREVER JORGE DEION Electrocardiogram DATE OF : 53 PHYSICIAN: ZAKIYA POWELL DO REPORT #: [id number] REPORT IS CONFIDENTIAL AND NOT TO BE RELEASED WITHOUT AUTHORIZATION
--- NOTE | 2020-03-03 20:08 | EKG ---
[facility] [address] [facility] [place] [address] Signed Normal sinus rhythm Nonspecific ST abnormality Abnormal ECG When compared with ECG of 03-MAR-2020 11:27, (Unconfirmed) Sinus rhythm has replaced Junctional rhythm Confirmed by ZAKIYA POWELL DO ([id number]) on 03/03/2020 8:08:10 PM Electronically Signed By: ZAKIYA POWELL DO 03/03/20 2008 PATIENT NAME: LUISITOTREVER DEION Electrocardiogram DATE OF : 53 PHYSICIAN: ZAKIYA POWELL DO REPORT #: [id number] REPORT IS CONFIDENTIAL AND NOT TO BE RELEASED WITHOUT AUTHORIZATION
--- NOTE | 2020-03-03 20:47 | NUR ---
pt ASSESSMENT COMPLETE. WEAKNESS RUE NOTED. pt ALERT AND ORIENTED TO LOCATION, YEAR, EVENT, REORIENTATION TO TIME OF DAY, DATE. IV SITES SL. VSS. CALL LIGHT IN LAP. pt REQUESTING A COOKIE. VERBALIZES UNDERSTANDING TO USE CALL LIGHT BEFORE OUT OF BED.
--- NOTE | 2020-03-03 21:47 | NUR ---
pt RESTING IN BED, COFFEE AND COOKIE PROVIDED. NO ADDITIONAL REQUESTS.
--- NOTE | 2020-03-04 01:01 | NUR ---
CHECKED ON pt. AWAKE RESTING IN BED. VSS. NEURO CHECK UNCHANGED FROM START OF SHIFT. REPOSITIONED WITH TWO PERSON ASSIST, LYING ON RIGHT SIDE. RIGHT ARM ON PILLOW. PERSONAL SUPPLIES IN REACH. pt DENIES ANY ADDITIONAL NEEDS AT THIS TIME. CALL LIGHT IN REACH.
--- NOTE | 2020-03-04 02:48 | NUR ---
CALL LIGHT ANSWERED. pt C/O RIGHT RIB PAIN. REPOSITIONED WITH 2PA. INCONTINENT OF URINE, URINE IN URINAL EMPTIED. CHUX, DRAW SHEET CHANGED, pt REFUSES ATTENDS. PRN PAIN MEDICATION ADMINISTERED, ICE PACK IN PLACE. CALL LIGHT IN REACH.
--- NOTE | 2020-03-04 02:56 | NUR ---
THIS OIL CHANGE TECHNICIAN AND PRIMARY RN CHANGED PATIENT'S GOWN AND DRAW SHEET FROM WET WITH URINE. PATIENT USING URINAL. PATIENT REPOSITIONED.
--- NOTE | 2020-03-04 05:46 | NUR ---
pt ASSISTED BACK TO BED FROM COMMODE, SMEAR BM NOTED. ATTENDS PLACE ON pt. pt VERY WEAK, PAINFUL WITH MOVEMENT, COUGHING. MD PHONED, TELEPHONE ORDERS REPEATED BACK. pt RESTING IN BED. ASSESSMENT COMPLETE. UNCHANGED FROM START OF SHIFT. WHEEZES HEARD THROUGHOUT LUNG LOBES. CALL LIGHT IN REACH. SUPERVISOR WORD PROCESSING NOW IN ROOM.
--- NOTE | 2020-03-04 05:51 | NUR ---
pt called to get up, requested more help from second american sign language teacher, 2pa onto bsc, help pt to sit up while Yobani changed drawsheet and alana alvares and charge out clerk came to asst with turning the bsc and pivot pt bk into bed, took am vitals and i&os done, no further request at this time
--- NOTE | 2020-03-04 05:57 | NUR ---
PRN PAIN MEDICATION ADMINISTERED FOR 8/10 PAIN AT THIS TIME. NATHANIEL NARAYANAN IN ROOM ASSISTING pt TO EAT PUDDING AT THIS TIME. NO ADDITIONAL REQUESTS.
--- NOTE | 2020-03-04 06:04 | NUR ---
FED PATIENT WITH PUDDING. RIGHT ARM WEAKNESS.
--- NOTE | 2020-03-04 07:35 | PATH ---
[facility] [address] [facility] [place], [place] [address] Signed ORDERING PHYSICIAN: Cedric Cullen MD PATIENT NAME: TREVER JORGE GENDER: Paulette : 1955 SPECIMEN(S): MOLECULAR PATHOLOGY RESULTS: SARS-CoV-2 Not Detected ADDITIONAL NOTES.: The Dry Branch Fusion SARS-CoV-2 Assay is a multiplex real-time PCR (RT-PCR) in vitro diagnostic test intended for the qualitative detection of RNA from SARS-CoV-2 from individuals who meet COVID-19 clinical and/or epidemiological criteria. In general, SARS-CoV-2 RNA can be detected during the acute phase of infection. Positive results indicate the presence of SARS-CoV-2 RNA. Clinical correlation with patient history and other diagnostic information is necessary to determine patient infection status. Positive results do not rule out bacterial infection or co-infection with other viruses. Negative results do not preclude SARS-CoV-2 infection and should not be used as the sole basis for patient management decisions. Negative results must be combined with other clinical observations, patient history, and epidemiological information. The Dry Branch Fusion SARS-CoV-2 Assay is not yet approved or cleared by the [place] FDA. When there are no FDA-approved or cleared tests available, and other criteria are met, FDA can make tests available under an emergency access mechanism called an Emergency Use Authorization (EUA). The EUA for this test is supported by the Support Services Rep of Health and Human Service's (HHS's) declaration that circumstances exist to justify the emergency use of in vitro diagnostics for the detection and/or diagnosis of the virus that causes COVID-19. This EUA will remain in effect for the duration of the COVID-19 declaration justifying emergency of IVDs, unless it is terminated or revoked by FDA, after which the test may no longer be used. The Dry Branch Fusion SARS-CoV-2 Assay is for use only under EUA in US laboratories certified under the Clinical Laboratory Improvement Amendments of 1988 (CLIA) to perform high complexity tests. [employer] is certified under CLIA to perform high complexity PATIENT NAME: TREVER JORGE PATHOLOGY DATE OF : 53 REPORT #: [id number] PHYSICIAN: SEAN ROSALES PCP: MIGUEL FARFAN MD REPORT IS CONFIDENTIAL AND NOT TO BE RELEASED WITHOUT AUTHORIZATION [address] [address] Signed clinical laboratory testing. PERFORMING LABORATORY.: Molecular testing was performed by [employer] [address] [place] [id number] (Geothermal System Installer: Charbel Cummings D.O.; CLIA#: [id number]) Diagnostician: System Interface Pathologist Electronically Signed 03/04/2020 Copies: ~ PATIENT NAME: TREVER JORGE PATHOLOGY DATE OF : 53 REPORT #: [id number] PHYSICIAN: SEAN ROSALES PCP: MIGUEL FARFAN MD REPORT IS CONFIDENTIAL AND NOT TO BE RELEASED WITHOUT AUTHORIZATION
--- NOTE | 2020-03-04 07:53 | NUR ---
PT RESTING EYES CLOSED AT TIME OF REPORT, LEFT UNDISTURBED. OFF TO MRI AT THIS TIME
--- NOTE | 2020-03-04 08:00 | NUR ---
PATIENT RESTING IN BED. PATIENT TRANSFERRED TO MRI BED. THREE PERSON ASSITING. LINENS CHANGED. WHITE BOARD UPDATED. NO OTHER NEEDS AT THIS TIME
--- NOTE | 2020-03-04 08:14 | NUR ---
MED REC COMPLETE
--- NOTE | 2020-03-04 10:04 | NUR ---
PT ASSISTED TO BED AFTER MRI, FULL ASSIST TO TRANSFER. BREAKFAST PROVIDED. PRESENT FOR A TIME THEN LEAVES. PT RESTING IN BED AT THIS TIME WORKING WITH P/T
--- NOTE | 2020-03-04 10:05 | NUR ---
CALL LIGHT ANSWERED. PATIENT SPILLED HIS CUP OF COFFEE ON THE BED AND GOWN. GOWN AND BLANKET CHANGED. TWO PERSON ASSISTING. VITAL SIGNS AND I&O DONE. HIGH BLOOD PRESSURE. RN NOTIFIED. CALL LIGHT WITHIN REACH. NO OTHER NEEDS AT THIS TIME
--- NOTE | 2020-03-04 11:45 | NUR ---
Spoke with Guilherme. He lives in [place] with his . He has had previous strokes and requires assistance. His drives and assists him. She currently has cancer. His daughter shops and helps with dorr operator. They live in a 2 story home, but pt uses ground floor and is planning some remodel. Pt would like to go to [facility] rehab. I called [facility]'s rehab and they currently have beds available. They requested I send a chart. Chart faxed.
--- NOTE | 2020-03-04 12:12 | NUR ---
PT WAS HERE FOR A SHORT TIME DAUGHTER CALLS TO CHECK ON HIM LATER. PT UP IN BED EATS 100% OF NOON MEAL. NO CHANGE TO NEURO THIS SHIFT AGREES TO NOTIFY STAFF OF ANY CONCERNS OR CHANGES.
--- NOTE | 2020-03-04 12:30 | NUR ---
PT IN BED, TV ON AND EATING LUNCH. PT'S SPEECH IS SOMEWHAT SLURRED, SLOW TO RESPOND. PT SEEMS ALERT, WORKING ON LUNCH. GAVE BLESSING, AND WILL FOLLOW
--- NOTE | 2020-03-04 13:58 | NUR ---
PATIENT RESTING IN BED. PATIENT ASSISTED TO USE THE BASE COMMODE. TWO PERSON ASSISTING WITH GAIT BELT. PATIENT BACKS TO BED. THREE PERSON ASSISTING. VITAL SIGNS AND I&O DONE. HIGH BLOOD PRESSURE. RN NOTIFIED. BED ALARM ON. CALL LIGHT WITHIN REACH. NO OTHER NEEDS AT THIS TIME
--- NOTE | 2020-03-04 14:05 | NUR ---
PT UP TO BEDSIDE RADHA ORNELAS ASSIST. HE ASKS ABOUT USING REGULAR TOILET, UNABLE TO MOVE HIS BOWELS ON BSC. PT STANDS UP AND STARTS TO WALK TOWARDS BATHROOM DESPITE STAFF INSTRUCTION. AGREES HE CANNOT MAKE IT, BSC PULLED UP UNDER HIM TO SIT. CONTINUES TO TRY TO MOVE BOWELS THEN STAFF ASSIST BACK TO BED, STATES HE WILL TRY LATER
--- NOTE | 2020-03-04 15:32 | NUR ---
DR POWELL IN TO SEE PT DISCUSSES PLAN GOING FORWARD
--- NOTE | 2020-03-04 18:00 | NUR ---
PT DAUGHTER IN TO SEE HIM, AGREES SHE SPOKE TO THE MD EARLIER AND ALL QUESTIONS WERE ANSWERED. PT EATS MOST OF EVENING MEAL. AGREES PAIN MEDS HELPED WITH RIB PAIN EARLIER, OTHER THAN WHEN HE COUGHS. DENIES NEEDS AT THIS TIME, CALL LIGHT IN HAND
--- NOTE | 2020-03-04 19:15 | NUR ---
BEDSIDE REPORT RECEIVED FROM BEATRIZ MEJIA. pt RESTING IN BED WITH EYES CLOSED. BED ALARM ON. PERSONAL SUPPLIES IN REACH. HR 96 ON TELE.
--- NOTE | 2020-03-04 20:25 | NUR ---
pt RESTING IN BED AWAKE. DENIES PAIN AT THIS TIME. ATTENDS IN PLACE AND DRY. URINAL EMPTIED. ASSESSMENT COMPLETE. GENERALIZED WEAKNESS ALL EXTREMITIES, IMPROVEMENT IN STRENGTH FROM PREVIOUS SHIFT. RIGHT HAND CORN DETASSELER MACHINE OPERATOR WEAK, UNABLE TO LIFT ARM OFF BED. PUPILS EQUAL ROUND REACTIVE TO LIGHT. ALERT AND ORIENTED, REORIENTATION TO TIME ONLY. SLURRED SPEECH NOTED. CALL LIGHT AND PERSONAL SUPPLIES IN REACH. ICE WATER PROVIDED. IV SITES SL WNL.
--- NOTE | 2020-03-04 21:36 | NUR ---
3pa pivot to bsc, change brief, change some bed linens, got pt bk to bed, hair brushed, noting else requested, call light in reach, bed alarm set
--- NOTE | 2020-03-04 21:40 | NUR ---
pt BACK IN BED AFTER 3PA TO PIVOT TO BSC FOR SMEAR BM. THICK STOOL NOTED. ASSISTED TO REPOSITION. CALL LIGHT AND PERSONAL SUPPLIES IN REACH. BED ALARM ON.
--- NOTE | 2020-03-04 22:58 | NUR ---
pt called, pt felt like made a bm, 2pa to roll pt and change attends, lowered bed, call light in reach, bed alarm on
--- NOTE | 2020-03-04 23:22 | NUR ---
pt MOANING, RATES PAIN 4/10 IN RIBS. PRN PAIN MEDICATION ADMINISTERED. pt COUGHING, PRN COUGH MEDICATION ADMINISTERED. HR 93 ON TELE 1. pt WITH NO ADDITIONAL REQUESTS. CALL LIGHT IN REACH.
--- NOTE | 2020-03-05 03:00 | NUR ---
pt needed to have a bm, 3pa pt with gaitbelt to bsc, got pt to bed, gave fresh water, left pt to rest, call light in reach, bed alarm on, nothing further requested
--- NOTE | 2020-03-05 03:07 | NUR ---
pt caused bed alarm to alert, "I need to go to the bathroom" pt was assisted onto BSC with BEATRIZ Anderson, NATHANIEL Pratt, and myself via gait belt and pivot. pt had lrg soft, but formed BM. Fresh water given. Bed alarm set. Nothing further needed from pt.
--- NOTE | 2020-03-05 03:08 | NUR ---
PT HAD SET OFF BED ALARM; STATES HE NEEDS TO HAVE A BM. 3PA TRANSFER TO BSC. LARGE FORMED SOFT BM. PT RETURNED TO BED. STATES PAIN IS "NOT TOO BAD" RIGHT NOW UNLESS HE COUGHS. ASSESSMENT COMPLETE. CALL LIGHT WITHIN REACH, BED ALARM ON. NO FURTHER NEEDS AT THIS TIME.
--- NOTE | 2020-03-05 05:20 | NUR ---
PATIENT REPOSITIONED. BLADDER SCANNED. V/S TAKEN AND RECORDED. PRIMARY RN JES NOTIFIED.
--- NOTE | 2020-03-05 05:21 | NUR ---
pt made attempt to void, took vitals, i&os in, observe bladder scan, gave fresh coffee, left pt to rest
--- NOTE | 2020-03-05 06:14 | NUR ---
PT HAD A DECENT NIGHT ALTHOUGH BECAME SOMEWHAT RESTLESS AROUND 0500. PT DOES NOT USE CALL LIGHT BUT RATHER SETS OFF BED ALARM. RIGHT SIDED WEAKNESS CONTINUES TO STAY THE SAME. PT IS A 2-3PA WITH GAIT BELT AND PIVOT TO BS. URINE OUTPUT IS LOW. BLADDER SCAN REVEALED ONLY 38-54ML URINE. PT ENCOURAGED TO DRINK MORE FLUIDS AND COFFEE WAS PROVIDED WHICH ALSO SEEMED TO CALM THE PT. PT HAD A LARGE BM ON THIS SHIFT.
--- NOTE | 2020-03-05 08:03 | NUR ---
PATIENT SLEEPING. SON THOMPSON UPDATED. CALL LIGHT WITHIN REACH. NO OTHER NEEDS AT THIS TIME
--- NOTE | 2020-03-05 08:30 | NUR ---
CALL LIGHT ANSWERED. PATIENT RESTING IN BED. PATIENT USES THE BASE COMMODE. TWO PERSON ASSISTING WITH GATE BELT. LINENS CHANGED. PATIENT DID NOT FOLLOW THE INSTRUCTIONS, GOT UP ON HIS OWN AND ALMOST FELL. PATIENT WAS ASSISTED TO TRANSFER TO THE CHAIR. TWO PERSON ASSISTING. FACE AND HANDS WERE WASHED. CHAIR ALARM ON. SETS UP TABLE FOR BREAKFAST. CALL LIGHT WITHIN REACH. NO OTHER NEEDS AT THIS TIME
--- NOTE | 2020-03-05 08:57 | NUR ---
Assessment completed. Patient sitting up in recliner, eating breakfast. Daughter at bedside. AM medications given as prescribed. Requests PRN medication for rib pain, see EMAR. Denies other needs at this time. Call light in reach.
--- NOTE | 2020-03-05 10:15 | NUR ---
Assist patient to bedside commode X2 assist. Patient continent of medium stool, returned to recliner. Chair alarm activated. Denies other needs at this time.
--- NOTE | 2020-03-05 10:42 | NUR ---
PATIENT SITTING UP IN CHAIR. VITAL SIGNS AND I&O DONE. CALL LIGHT WITHIN REACH. NO OTHER NEEDS AT THIS TIME
--- NOTE | 2020-03-05 10:52 | NUR ---
Spoke with Guilherme. He is working with OT. Updated [facility] IP declined due to stenosis and not having a vasuclar surgeon. I updated Dr. Romeo and he spoke with Dr. العراقي by phone. They will revisit tomorrow and Dr. العراقي asks the hospitalist call him tommorrow at 10. Pt does not want to go to [facility] as he feels it is to far from his .
--- NOTE | 2020-03-05 11:30 | NUR ---
Spoke with Tiki pt's daughter. She is attempting to care for mother and father. She states her mother has terminal cancer at this time and was in the ER last night. She does not feel Guilherme will go to [facility] if accepted as he is worried about her mom. She is also concerned it is to far away. She would prefer [facility] as this is more manageable, as she also as an infant. Updated I will call her tomorrow when I know more after Dr العراقي and Dr. Briggs visit at 10:00.
--- NOTE | 2020-03-05 11:45 | NUR ---
Notified by Dr. Luna he has completed progress notes for today and request I fax to Dr. العراقي. Notes and Covid results faxed to [facility] rehab.
--- NOTE | 2020-03-05 13:21 | NUR ---
PATIENT GIVEN 650MG PO TYLENOL FOR 8/10 RIGHT RIB PAIN, ASSOC WITH OCCASIONAL COUGH.
--- NOTE | 2020-03-05 13:51 | NUR ---
BEATRIZ ARGUELLO REQUESTED I NOT VISIT PT AT THIS TIME. THEY NEED TO MOVE HIM. WILL CHECK AGAIN
--- NOTE | 2020-03-05 14:37 | NUR ---
Assessment completed. During transfer to bed from recliner, IV to Right hand is pulled by mistake. Patient remains with IV site to LAC. No complaints of pain at this time. Call light in reach.
--- NOTE | 2020-03-05 15:23 | EKG ---
[facility] [address] [facility] [place] [address] Signed Atrial fibrillation N[address]pecific ST abnormality Abnormal ECG When compared with ECG of 03-MAR-2020 18:04, Atrial fibrillation has replaced Sinus rhythm ST elevation now present in Inferior leads Confirmed by ANNETTE SYED MD ([id number]) on 03/05/2020 3:23:13 PM Electronically Signed By: ANNETTE SYED MD 03/05/20 1523 PATIENT NAME: TREVER JORGE DEION Electrocardiogram DATE OF : 53 PHYSICIAN: ANNETTE SYED MD REPORT #: [id number] REPORT IS CONFIDENTIAL AND NOT TO BE RELEASED WITHOUT AUTHORIZATION
--- NOTE | 2020-03-05 16:11 | NUR ---
Head of bed elevated. Call light in reach. Respirations even and unlabored. Denies needs at this time. Bed alarm activated.
--- NOTE | 2020-03-05 17:47 | NUR ---
Patient with bed alarm in place, attempts to get up without assist multiple times today. Patient continent and incontinent of urine. Unable to assess amount of urine output due to incontinence. Informed by NATHANIEL Elliott, patient feels his bladder is empty. Upon this nurse asking patient, he verbalizes his bladder is currently empty, bladder scanned with only 3mL noted on bladder scanner. Remains disoriented to time with periods of increased confusion noted. Chronic right sided weakness without improvement. Remains on telemetry, EKG completed today for a-fib. Pain medication and cough syrup administered for rib pain due to previous fall. Pain improves with medication.
--- NOTE | 2020-03-05 17:53 | NUR ---
PATIENT RESTING IN BED. BRIEF CHANGED. CALL LIGHT WITHIN REACH. NO FURTHER NEEDS AT THIS TIME.
--- NOTE | 2020-03-05 18:30 | NUR ---
Incontinent of urine, large amount, seeps through brief, draw sheet and fitted sheet. Linens changed. Continent of large amount of stool on commode with 2 person assist. Returns to bed. Bed alarm activated.
--- NOTE | 2020-03-05 19:40 | NUR ---
crawling out of bed, has bed alarm on. 3 PA, weakness R sided, gait belt . voided, back to bed, very unsteady.
--- NOTE | 2020-03-05 19:45 | NUR ---
pt UP AT SIDE OF BED, ATTEMPTING TO GET UP TO COMMODE FOR BM. 3PA TO PIVOT TO BSC, HEAVY ASSIST. RIGHT SIDED WEAKNESS, UNSTEADY ON FEET, SLIDING OUT FROM UNDER pt. SMEAR BM NOTED. BACK IN BED, BED ALARM ON.
--- NOTE | 2020-03-05 19:59 | NUR ---
Coop with assessment, bandaid R elbow, decreased movement/weakness R amre R LEg, alert, answers questions apporpriately, tele inplace. No c/o pain. Bed alarm on.
--- NOTE | 2020-03-05 20:30 | NUR ---
3 PA USING IRIS LIFT TO TRANSFER PATIENT TO BEDSIDE COMMODE AND BACK TO BED.
--- NOTE | 2020-03-05 21:31 | NUR ---
up to bsc, yadira thomas, incontinent of soft bm, skin care and new gown given. Back to bed, tolerated well, R sided weakness gross movement R arm. tolerating sips well
--- NOTE | 2020-03-06 00:53 | NUR ---
RESTING, ON ROOM AIR, BED ALARM ON, CALL LIGHT AND FLUIDS ATBEDSIDE. TELE#1 SINUS RHYTHM [id number]
--- NOTE | 2020-03-06 02:15 | NUR ---
UP TO BSC, IRIS LIFT, VOIDED, PLUS WAS INCOTINENT OF LARGE AMOUNT OF URINE. BACK TO BED, SIPS OF WATER GIVE, CONT TO HAVE DEFICTI OF R SIDE. SLIGHTLY GARBLED SPEECH, COOP. ATTENDS IN PLACE. LEGS ELEVATED
--- NOTE | 2020-03-06 03:35 | NUR ---
pt USED CALL LIGHT TO ASK FOR ASSISTANCE WITH THE URINAL, VOIDING 75ccs. CALL LIGHT GIVEN, BED ALARM SET, NOTHING FURTHER NEEDED AT THIS TIME.
--- NOTE | 2020-03-06 06:12 | NUR ---
C/O 5/10 RIBS PAIN, WORSENING WITH COUGH, MEDICATED WITH OXYCODONE 5MG PO.
--- NOTE | 2020-03-06 06:17 | NUR ---
PT HAS BEEN MEDICATED X2 WITH OXYCODONE PER C/O RIB PAIN, WORSENING BY COUGH, NO COUGH NOTED THIS SHIFT, MEDICATED WITH TESSALON PERLES X1, EFFECTIVE. TOLERATING SIPS OF FLUIDS WELL, IRIS LIFT USED TO GET UP TO BSC X3, TOLERATED FAIT, INCONTINENT OF HARD BM AND URINE, ATTENDS IN PLACE, REPOSITIONED IN BED, LEGS ELEVATED. WEAKNESS R ARM AND R LEG, UNSTEADY GAIT, GARBLED SPEECH, NO FACIAL DROPPINES NOTED .ASPIRATION AND FALL PRECAUTIONS IN PLACE
--- NOTE | 2020-03-06 08:30 | NUR ---
Spoke with Dr. Briggs in 0830 meeting. She does not believe pt will be accepted by [facility] rehab. Chart faxed to [facility] to see if they have a bed for rehab for this pt.
--- NOTE | 2020-03-06 08:51 | NUR ---
PT PULLED UP AND REPOSITIONED IN BED, BKF TRAY SET UP FOR PT AND HE WAS ABLE TO FEED SELF AT THIS TIME. PILOT PLANT OPERATOR HAS A HARD TIME UNDERSTANDING HIM THIS AM.
--- NOTE | 2020-03-06 11:00 | NUR ---
Spoke with Dr. Briggs, pt was declined by IP rehab. They do not feel he is able to complete 3 hrs of rehab per day a this time. Plan for pt to go to [facility] for further rehab and they can assess later if he can tolerate an IP rehab. Chart sent to [facility]. Pt updated and called and updated pts mary Fairbanks. She states she is in the ER with her mother again as she in Afib and not doing well. Discussed IP vs OP rehab and I will let her know if [facility] accepts [facility]. Also let her know, if [facility] accepts we will send by van. She will not need to transport. Daughter is overwhelmed at this time trying to care for both parents as their health declines.
--- NOTE | 2020-03-06 12:41 | NUR ---
PT UP TO THE [id number] COMMODE TWO PERSON ASSISTANCE THEN TO THE CHAIR AFTER HE HAD A MED BM. CHAIR ALARM ON AT THIS TIME. PT ACROSS FROM NURSES STATION IN VIEW.
--- NOTE | 2020-03-06 13:05 | NUR ---
PTSITTING IN CHAIR, TV ON. TRAVOGRAPH OPERATOR IN CLEANING UP RM AND ATTENDING TO PT. HE SAID HE WAS BETTER. HIS SPEECH IS CLEARER AND SEEMED TO HAVE SOMEWHAT MORE MOVEMENT IN BOTH ARMS. GAVE BLESSING, PT ACKNOWLEDGED
--- NOTE | 2020-03-06 13:50 | NUR ---
PT BACK TO BED WITH TWO PERSON ASSISTANCE. PT WAS ABLE TO GET HIMSELF TO BED ONCE STAFF HELPED HIM TO THE BED. SIDE RAILS UP AND BED ALARM ON.
--- NOTE | 2020-03-06 18:41 | NUR ---
PT DAUGHTER HERE AT THIS TIME AND BROUGHT PT IN SOME DINNER DUE TO HE REFUSED TO ORDER ANY FOOD FROM THE [employer].
--- NOTE | 2020-03-06 19:05 | NUR ---
SHIFT REPORT RECEIVED FROM XAVIER. DAUGHTER IN ROOM. NO NEEDS AT THIS TIME. CALL LIGHT IN REACH.
--- NOTE | 2020-03-06 22:04 | NUR ---
ASSESSMENT, VS AND I&O COMPLETED. SCHEDULED MEDS PROVIDED. PT DECLINES STOOL SOFTNERS HE HAS HAD SEVERAL SOFT BMs TODAY. GCS 15, A&O X4. SLOW TO RESPOND, [place]. SLIGHTLY SLURRED SPEACH. DECREASE MOVEMENT IN RLE PULSE AND SENSATION INTACT. RUE HAS NO MOVEMENT, NUMBNESS AND TINGLING, PULSE INTACT. CMS INTACT IN LEFT EXTREMITIES. TELE HR SR @ 94. LUNGS CLEAR, OCCASSIONAL DRY COUGH. PAIN IN RIBS 4/10, PRN PAIN MED PROVIDED. PT APPEARS FORGETFUL, BED ALARM ON, RAILS UP. BOWEL TONES ACTIVE, ABD SOFT, NONTENDER. NO EDEMA NOTED. NO OTHER NEEDS, CALL LIGHT IN REACH.
--- NOTE | 2020-03-07 02:46 | NUR ---
BED ALARM SOUNDING. PT STATES HE NEEDS TO USE THE URINAL, PROVIDED. BRIEFS CHANGED. PT REPOSITIONED. TELE BATTERY CHANGED. HR SR @93. ASSESSMENT COMPLETED. GCS 15, A&O X3, DISCORIENTED TO TIME. RIGHT ARM NUMB AND WAEK, PULSE INTACT. RIGHT LEG WEAK, PULSE AND SENSATION INTACT. RIGHT FACIAL DROOP AND SLURRED SPEECH NOTED. LUNGS CLEAR. BOWEL TONES ACTIVE, ABD SOFT, NONTENDER. NO EDEMA NOTED. ABRASION ON RIGHT ELBOW COVERED. NO OTHER NEEDS AT THIS TIME. CALL LIGHT IN REACH, BED ALARM ON, RAILS UP.
--- NOTE | 2020-03-07 03:35 | NUR ---
RN NOTED MOVEMENT ON PT's TELE MONITOR SO SHE WENT INTO ROOM TO FIND PT LAYING ON FLOOR NEAR THE SIDE AND END OF THE BED. ALL RAILS ON THE BED ARE UP. 3PA TO STANDING AND BACK TO BED. GCS 15, A&O X3, NOT ORIENTED TO TIME. PT DENIES HITTING HEAD OR PAIN. NO REDNESS OR SKIN TEARS NOTED. VS COMPLETED. MD AND TREE WARDEN NOTIFIED. PT STATES HE WANTS TO WATCH TV, PROVIDED. BED ALARM ON, BED IN LOWEST POSITION, RAILS UP, DOOR SLIGHTLY AJAR. CALL LIGHT IN REACH.
--- NOTE | 2020-03-07 05:55 | NUR ---
VITALS AND I&OS DONE AND CHARTED. GARBAGES EMPTIED. FRESH ICE WATER GIVEN. BEDSIDE TABLE AND CALL LIGHT IN REACH. PT NEEDS NOTHING MORE AT THIS TIME.
--- NOTE | 2020-03-07 06:47 | NUR ---
PT STATES HE HAS 8/10 PAIN IN HIS RIBS, PRN PAIN MED PROVIDED. NO OTHER NEEDS AT THIS TIME. CALL LIGHT IN REACH, RAILS UP, BED ALARM ON, DOOR AJAR.
--- NOTE | 2020-03-07 07:31 | NUR ---
0655: Pt resting in his bed with his bed alarm on and call quiros within reach. Report received from Maribell HENDERSON.
--- NOTE | 2020-03-07 08:45 | NUR ---
Notified in [phone] Briggs she plans on dc of this pt today after he is seen. I will call [facility] and confirm they are accepting him today.
--- NOTE | 2020-03-07 09:22 | NUR ---
IV SITE WILL BE CHANGED IF PT NOT DISCHARGED TODAY.
--- NOTE | 2020-03-07 09:34 | NUR ---
PT WORKING WITH OT AT THIS TIME. HE STATES HE HAS SOME RIB PAIN DUE TO HIS OLD FRACTURES BUT STATES IT IS ACCEPTABLE AT THIS TIME. RIGHT SIDED WEAKNESS WHICH HE STATES HE HAD SOME FROM AN OLD CVA AND IS UNABLE TO TELL ME IF IT IS WORSE NOW OR IF IT IS BASELINE. WILL CONTINUE TO MONIOTOR. SEE ASSESSMENT.
--- NOTE | 2020-03-07 09:38 | NUR ---
tele showes [facility].
--- NOTE | 2020-03-07 09:55 | NUR ---
Spoke with [facility]. They will accept pt. Informed I will send SNF orders and PASRR when completed.
[2020-03-07] MEDS ORDERED: SULFAMETHOXAZO1 EAC1 PO (10:22)
[2020-03-07] MEDS ORDERED: LIPITOR40 MG PO (10:23)
[2020-03-07] MEDS ORDERED: ELIQUIS5 MG PO (10:23)
[2020-03-07] MEDS ORDERED: HYDRALAZINE HCL25 MG PO (10:23)
[2020-03-07] MEDS ORDERED: OXYCODONE HCL5 MG PO (10:24)
[2020-03-07] MEDS ORDERED: METOPROLOL TART50 MG PO (10:24)
[2020-03-07] MEDS ORDERED: PANTOPRAZOLE SO40 MG PO (10:26)
--- NOTE | 2020-03-07 10:52 | NUR ---
Snf orders, PASRR, Rx sent. Awaiting approval from RN at [facility].
--- NOTE | 2020-03-07 11:44 | NUR ---
Pt resting in his bed and is visiting with his . He denies any new problems and is awaiting his transfer to [facility].
--- NOTE | 2020-03-07 11:57 | NUR ---
Orders approved and requested they set wc out for [facility] to transport pt. Charge nurse notified pt is cleared for transport and she will notify the [facility].
--- NOTE | 2020-03-07 12:04 | NUR ---
Report called to Amelia Vu at [facility].
--- NOTE | 2020-03-07 12:23 | NUR ---
DISCHARGE VITALS CHARTED
== END 2020-03-07 12:26 | DRG 65 ==
LOC: ED 11:03 → MS 14:32
PROVIDERS: ADMIT Student in an Organized Health Care Education/Training Program; ATTEND Student in an Organized Health Care Education/Training Program
DX: I63.40 Cerebral infarction due to embolism of unspecified cerebral artery (principal); G81.91 Hemiplegia, unspecified affecting right dominant side; I47.1 Supraventricular tachycardia; I48.92 Unspecified atrial flutter; Z20.828 Contact with and (suspected) exposure to other viral communicable diseases; R47.01 Aphasia; I48.91 Unspecified atrial fibrillation; R73.03 Prediabetes; F17.210 Nicotine dependence, cigarettes, uncomplicated; K21.9 Gastro-esophageal reflux disease without esophagitis; E78.5 Hyperlipidemia, unspecified; R29.706 NIHSS score 6; R40.2362 Coma scale, best motor response, obeys commands, at arrival to emergency department; R40.2142 Coma scale, eyes open, spontaneous, at arrival to emergency department; R40.2252 Coma scale, best verbal response, oriented, at arrival to emergency department; I10 Essential (primary) hypertension; F39 Unspecified mood [affective] disorder; Z86.73 Personal history of transient ischemic attack (TIA), and cerebral infarction without residual deficits; Z85.828 Personal history of other malignant neoplasm of skin; Z79.899 Other long term (current) drug therapy; Z79.82 Long term (current) use of aspirin
CPT/HCPCS: 36415; 70450; 70496; 70498; 70551; 71045; 80048; 80053; 80061; 83036; 83735; 84484; 85025; 85610; 85730; 92507; 93005; 93010; 93306; 96105; 97110; 97112; 97116; 97162; 97166; 97530; 99285-25; 99406; C9803; J1650; Q9967